=== PATIENT | male | born 1950 | race Caucasian/White ===

== ENCOUNTER → 2018-01-11 14:39 | Outpatient (CLI) | payer MEDICARE, SELFPAY ==
[2016-02-04 15:13] VITALS: BMI 32.7
== END ==
PROVIDERS: Family Provider Family Medicine; PCP Family Medicine; Visit Provider Otolaryngology
DX: J32.9 Chronic sinusitis, unspecified (principal)
CPT/HCPCS: 70486

== ENCOUNTER 2018-04-13 08:38 | Inpatient (IN) | payer MEDICARE, SELFPAY ==
[2016-02-04 15:13] VITALS: BMI 32.7
[2017-04-23 14:17] VITALS: BMI 29.9
[2018-04-13] VITALS (40 sets, daily range): BP systolic 112–188; BP diastolic 62–137; PULSE 60–98; RESP 15–23; TEMP 36.4–37.4; O2SAT 95–100; BMI 34.9; BMI 35.5
--- NOTE | 2018-04-13 08:45 | RAD_ITS ---
STUDY: X-RAY CHEST REASON FOR EXAM: Male, 67 years old. Chest pain. TECHNIQUE: Single AP portable view of the chest. COMPARISON: June 17, 2015. FINDINGS: Cardiac monitoring leads are present. The lungs are expanded. There is perihilar interstitial thickening in both lungs. There is no demonstrated pleural abnormality. There is borderline cardiomegaly. Normal mediastinum and radhames. There is prominence of the pulmonary hilar arteries with peripheral pulmonary vascular congestion. There is atherosclerotic calcification of the aortic arch with tortuosity. Normal visualized thoracic spine. Normal visualized ribs, clavicles, and shoulders. There is no demonstrated abnormality of the visualized soft tissue structures of the upper abdomen. RAD/Chest 1 View (Portable) IMPRESSION: Borderline cardiomegaly and mild pulmonary congestion. Electronically Signed: Natalia Glass MD at 9:17 EST , Service support ,
--- NOTE | 2018-04-13 08:45 | EKG12_ITS ---
Test Reason : CP Blood Pressure : / mmHG Vent. Rate : 083 BPM Atrial Rate : 083 BPM P-R Int : 128 ms QRS Dur : 104 ms QT Int : 400 ms P-R-T Axes : 057 -13 026 degrees QTc Int : 470 ms Sinus rhythm with occasional and consecutive Premature ventricular complexes Abnormal ECG Confirmed by RAGINI NAZARIO, JAMES ([id number]), scientific publications editor AMANDA SCANLON ([id number]) on 04/17/2018 11:39:31 AM Referred By: CLIVE/GYPSY Confirmed By:JAMES EID MD
[2018-04-13 08:55] LABS: Absolute Lymphocyte Count 2.52 X10^3/ul (0.83-4.51); Absolute Neutrophil Count 6.4 X10^3/uL (2.0-7.7); Basophil# 0.02 X10^3/uL; Basophil% 0.2 % (0-1); Eosinophil# 0.14 X10^3/uL; Eosinophils% 1.4 % (0-5); Hematocrit 45.9 % (40-54); Hemoglobin 15.5 g/dl (13.0-16.5); Lymphocyte # 2.52 X10^3/ul (4.0); Lymphocyte % 24.9 % (19-41); Mean Corp Hgb Conc 33.8 g/gl (32-36); Mean Corpuscular Hgb 31.1 pg (27.0-32.0); Mean Platelet Vol. 10.1 fl (6.2-12.0); Monocyte# 0.97 X10^3/uL; Monocyte% 9.6 % (0-10); Neutrophil # 6.43 X10^3/uL (2.7-7.7); Neutrophil % 63.5 % (47-70); Platelet Count 204 K/mm3 (150-450); RBC Distribution Width CV 13.1 % (11.6-14.6); RBC Distribution Width SD 43.3 fl (35.1-43.9); Red Blood Count 4.99 M/mm3 (4.6-6.2); White Blood Count 10.1 K/mm3 (4.4-11.0)
[2018-04-13 08:57] LABS: POSITIVE COUNT NO; POSITIVE DIFFERENTIAL NO; POSITIVE MORPHOLOGY NO
[2018-04-13] MEDS: Ondansetron 4 MG/2 ML Vial IV (09:01)
[2018-04-13] MEDS: 0.9% Normal Saline 1,000 ML 150 ML IV (09:01)
[2018-04-13] MEDS: morphine 8 MG/ML Syringe IV ×2 (09:01→10:11)
[2018-04-13 09:14] LABS: D-Dimer Quantitative (DVT/PE) 0.82 FEU/ug/m (0.27-0.49)
--- NOTE | 2018-04-13 09:15 | ED.RN ---
LAB CALLS WITH CRITICAL RESULT, D-DIMER 0.82, DR. BETANCUR MADE AWARE.
[2018-04-13 09:17] LABS: Anion Gap 11 (5-15); BUN 25 mg/dL (7-18); Calcium,Total 9.3 mg/dL (8.5-10.1); Chloride 113 mmol/L (98-107); Creatinine, Serum 1.56 mg/dL (0.70-1.30); EST Glomerular Filtration Rate 47 mL/min (>60); Est Glom Filt Rate - Afr Amer 57 mL/min (>60); Estimated Creatinine Clearance 41.47 ml/min; Glucose 149 mg/dL (74-106); Sodium Level 144 mmol/L (136-145)
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
--- NOTE | 2018-04-13 09:38 | EKG12_ITS ---
Test Reason : REPEAT-MORE CP Blood Pressure : / mmHG Vent. Rate : 064 BPM Atrial Rate : 064 BPM P-R Int : 128 ms QRS Dur : 104 ms QT Int : 410 ms P-R-T Axes : 057 -27 016 degrees QTc Int : 422 ms Normal sinus rhythm with sinus arrhythmia Nonspecific ST abnormality Abnormal ECG inferior ischemia Confirmed by RAGINI NAZARIO, JAMES ([id number]), editorial manager AMANDA SCANLON ([id number]) on 04/17/2018 11:40:06 AM Referred By: GYPSY Confirmed By:JAMES EID MD
[2018-04-13] MEDS: Nitroglycerin Infusion 250 ML 3 MG IV (09:49)
--- NOTE | 2018-04-13 09:50 | ED.RN ---
PT TO CT VIA STRETCHER, REMAINS ON CODE ENFORCEMENT SUPERVISOR. RN ACCOMPANIES.
--- NOTE | 2018-04-13 09:58 | ED.DCSUM_ITS ---
- ER Visit Summary Date of Service: 04/13/18 Chief Complaint: [] Chest pain after working out in the gym History of Present Illness: The patient is a 67 M [] history of cardiac stents reports he has had good health he was working in the gym with bench presses and other similar type activity he began explained to chest pressure that did not go away,. Per medics were called, he was given aspirin nitroglycerin he states the pain is improved but has not resolved its about a 6, his cardiac status has been very stable he is not been experiencing chest pain. Indicates since his stents he is able to exercise and do normal activities without chest discomfort, the last time he saw cardiology everything was stable. He had no fever no cough he did not injure himself today in the gym he indicates the bench pressing and other lifting activities were typical for him he denies numbness weakness or paresthesias no abdominal pain normal bowel bladder habits Physical Examination: [] Pressure is 170/80 General, no distress resting comfortably HEENT is generally unremarkable The neck is supple no adenopathy Cardiovascular, regular rate and rhythm Lungs, clear bilateral Abdomen, soft nontender Extremities, no clubbing cyanosis or edema, pulses symmetric bilaterally he is moving all 4 extremities Neurologic, awake alert answering questions appropriately moving all 4 extremities Test Results: [] Emergency Department Course and Treatment: [] EKG showed a sinus rhythm there were nonspecific ST segment changes including in lead II and III that were present on previous EKG he has received aspirin nitroglycerin by EMS he is receiving additional medications here in the department we will proceed with cardiac evaluation EKG labs troponin chest x-ray These initial studies were unremarkable the patient's pain improved and it reoccurred second EKG was obtained and showed slightly more ST segment depression in lead 2 that was present before his d-dimer returned positive to 0.9 he was doing bench pressing type activities, his pulses and vital signs otherwise remained stable at this time was treated with labetalol nitroglycerin we immediately contacted cardiology made him aware of the above they agree if the CTA is negative that they will be taking him for further additional diagnostic management, we have asked radiology for an expedited reading of the CTA, on my inspection of the CTA images there was nothing grossly to suggest dissection or PE I notified cardiology of the above and they are coming in immediately to further evaluate him The patient's vital signs remained stable his blood pressure is now 140/80 his heart rate is 80 his pain is improved, cardiology is currently here evaluating him, formal CTA results still pending Treatment Plan: [] Disposition: [] Admit to cardiology [employer] Impression: [] Chest pain possible coronary syndrome history of cardiac stents, to [employer] This note was generated with Akimbo dictation software. It may contain incorrect words, spelling, and punctuation that were not noted in review of the chart prior to signing ED Disposition - Plan for ED Patient: Chief Complaint: Chest Pain Referrals: Herb Middleton MD [Primary Care Provider] -
--- NOTE | 2018-04-13 10:03 | ED.RN ---
TITRATE NITRO TO 10MCG/MIN AT 0953. PT C/O PAIN 11/04. PT IS CT. VS 163/86 63.
--- NOTE | 2018-04-13 10:29 | ED.RN ---
CALLED DR ROOT AT 10:22 LEFT MESSAGE ON HIS VOICEMAIL. CLINICAL SUPPORT MANAGER CALLED ME AT 10:29 REPAGED HIM AND STILL NO ANSWER.
--- NOTE | 2018-04-13 10:30 | ED.RN ---
DR ROOT RETURNED CALL AT 10:31.
--- NOTE | 2018-04-13 10:30 | ED.RN ---
CALLED CT TO MAKE SURE CT WAS READ STAT. GRANT CALLED [facility] AND THEY SAID HE IS UP NEXT TO BE READ. SHE PUT STAT IN READING BUT UNLESS IT IS A STROKE SHE SAID THEY TAKE IT BACK OUT.
--- NOTE | 2018-04-13 10:45 | ED.RN ---
DR ROOT AT BEDSIDE
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
--- NOTE | 2018-04-13 12:20 | EKG12_ITS ---
Test Reason : POST PCI Blood Pressure : / mmHG Vent. Rate : 081 BPM Atrial Rate : 081 BPM P-R Int : 144 ms QRS Dur : 106 ms QT Int : 404 ms P-R-T Axes : 058 -01 037 degrees QTc Int : 469 ms Normal sinus rhythm Normal ECG When compared with ECG of 13-APR-2018 09:29, MANUAL COMPARISON REQUIRED, DATA IS UNCONFIRMED Confirmed by RAGINI NAZARIO, JAMES ([id number]), book or script editor AMANDA SCANLNO ([id number]) on 04/19/2018 2:07:32 PM Referred By: IVETT Confirmed By:JAMES EID MD
--- NOTE | 2018-04-13 12:50 | CL.I_ITS ---
Patient Name: SEBASTIEN BARON Study Date: 04/13/2018 Performing: Thanh Prajapati MD Ht: 66.14 inches 168 cm : 1950 Wt: 216.05 lbs 98 kg Age: 67 Gender: male BSA: 2.07 PROCEDURE(S) PERFORMED QF09-DOH/COR/LV HY98-LNO W OR WO PTCA, SINGLE CORONARY ARTERY CLINICAL PROFILE AND CO-MORBIDITIES Heart Failure: None Angina Classification Anginal Classification w/in 2 Weeks: CCS IV CAD Presentations: Unstable angina. CONCLUSIONS 100% Prox/Mid LCX 50-60% Mid LAD 50% ISR Mid RCA; 60% ostial PDA LVEDP 33 mm Hg LVEF 65% Successful PTCA/JOSE ANGEL Prox LCX using Resolute Integrity 3.0x14 mm RECOMMENDATIONS ASA Indefinitley Brilinta for at least 12 months DESCRIPTION OF PROCEDURE The patient arrived to the procedure lab. The risks and benefits of the procedure as well as a full d escription of our services here and lack of surgical backup were fully explained to the patient and/o r their significant other prior to the catheterization. The Timeout was completed, verifying the jordan ect patient and procedure. The patient's procedural site was prepped and draped in the usual fashion. Local anesthetic was given subcutaneously to right radial region with Lidocaine 2%. Using a modified Seldinger technique, arterial access was obtained via the right radial artery, a 6Fr sheath was inse rted.. Left Coronary Artery selective angiography was performed in multiple views using a 5 Fr. 4.0 [place] catheter. Right Coronary Artery selective angiography was then performed in multiple views usin g a 5 Fr. 4.0 [place] catheter. LV to AO pullback pressures were then recordedThe images were reviewed and options discussed. A decision was then made to proceed with an Intervention, IVUS or other adjunct procedure. xb 3 cordis Guide catheter was inserted and engaged into the LCA. runthrough Guide wire was advan honorio to the Circumflex. Angiogram performed pre balloon dilatation. emerge 2.5 x 20 Balloon catheter w as advanced across lesion in the circumflex, prox PTCA balloon inflated at 12 atms for 26 secs. PTCA balloon inflated at 14 atms for 28 secs. Angiogram performed post balloon dilatation. resolute 3.0 x 15 Drug Eluting stent was advanced across the lesion in the circumflex, prox Angiogram performed post stent deployment. nc emerge 3.00 x20 Balloon catheter was inserted post stent. Angiogram performed post stent deployment. The arterial sheath was pulled and a TR Band was applied for hemostasis CORONARY ANGIOGRAPHY DOMINANCE: Right Dominant LEFT HEART ASSESSMENT Left Ventricular Ejection Fraction: by LV Gram 65 % LVEDP: 33 mmHg LEFT MAIN: Angiographically normal LEFT ANTERIOR DECENDING ARTERY: 30% Prox, 50% Mid CIRCUMFLEX ARTERY: 100% Prox. ISR and in-stent thromboisi RIGHT CORONARY ARTERY: 50% ISR Mid RCA; 60% ostial RPDA INTERVENTION INFORMATION LESION SITE: Circumflex (Proximal) Lesion Complexity: High/C, thrombus present: Yes, In-stent restenosis: Yes, culprit lesion: Yes Pre Stenosis: 100 % Pre intervention DIANNE flow: 0 PROCEDURE: Drug Eluting Stent with pre and post dilatation Post Stenosis: 0 % Post intervention DIANNE flow: 3 Lesion Devices: Cory Sci EMERGE MR 2.50x20 BALLOON Medtronic Resolute RX JOSE ANGEL 3.0x15 Cory Sci NC EMERGE MR 3.00x20 BALLOON COMPLICATIONS No Complications PROCEDURE MEDICATIONS Versed 2 mg IV Fentanyl 25 mcg IV Fentanyl 25 mcg IV Oxygen: 2 L/min via nasal cannula Brilinta 180 mg PO 04/13/2018 11:15:04 Angiomax 15 ml's loading dose given 04/13/2018 11:45:04 Angiomax 35 ml's/hr infusing iv @ 04/13/2018 11:45:41 Heparin given IA 04/13/2018 11:36:03 Nitro 200 mcg IC 04/13/2018 11:52:25 Verapamil 2.5mg, Ntg 100mcgs, 2000 units of Heparin given IA 04/13/2018 11:36:03 IV Bolus: .9 NaCl 500 ml total 04/13/2018 12:13:54 SUMMARY OF HEMODYNAMIC DATA Time AIR REST ECG 11:30:06 AO 149/80 (108) SA 11:38:52 LV 159/15, 33 12:10:12 LV 151/16, 33 12:10:18 LVp 143/27, 36 12:10:53 AOp 132/76 (100) 12:10:58 Signed By Thanh Prajapati MD On 04/13/2018 12:49:52 Thanh Prajapati MD
[2018-04-13 12:51] LABS: ACT Activated Clotting Time 323 sec (74-137)
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
[2018-04-13] MEDS: 0.9% Normal Saline 1,000 ML 100 ML IV (13:09)
[2018-04-13] MEDS: Metoprolol Tartrate 25 MG Tablet PO ×2 (15:40→21:24)
[2018-04-13] MEDS: Famotidine 20 MG Tablet PO (21:24)
[2018-04-13] MEDS: 0.9% NaCl Peripheral Flush Adult/Peds IV (21:25)
[2018-04-13] MEDS: TICAGRELOR 90 MG TABLET PO (21:25)
[2018-04-13] MEDS: Atorvastatin Calcium 40 MG Tablet PO (21:25)
[2018-04-13] MEDS: Lactulose 20 GM/30 ML UDC PO (21:25)
[2018-04-13] MEDS: Morphine 2 MG/ML Syringe IV (21:25)
[2018-04-13] MEDS: ALPRAZolam 0.5 MG Tablet PO (21:26)
[2018-04-14] VITALS (25 sets, daily range): BP systolic 121–162; BP diastolic 60–87; PULSE 65–98; RESP 11–24; TEMP 36.8–36.9; O2SAT 94–98
--- NOTE | 2018-04-14 02:23 | NURSING ---
Pt states inability to sleep. Requested sleep aide. Educated pt on the policy of 00:30 for administration of sleep aides. Pt states understanding. Nurse offered snacks and drinks, help with repositioning. Pt refused offers. Watching TV, pleasant and cooperative.
[2018-04-14 04:57] LABS: Hematocrit 39.5 % (40-54); Hemoglobin 13.3 g/dl (13.0-16.5); Mean Corp Hgb Conc 33.7 g/gl (32-36); Mean Corpuscular Hgb 31.1 pg (27.0-32.0); Mean Corpuscular Volume 92.5 fL (80-94); Mean Platelet Vol. 9.8 fl (6.2-12.0); Platelet Count 165 K/mm3 (150-450); RBC Distribution Width CV 13.1 % (11.6-14.6); RBC Distribution Width SD 43.2 fl (35.1-43.9); Red Blood Count 4.27 M/mm3 (4.6-6.2)
[2018-04-14 05:03] LABS: Scan Indicated on CBC? Y/N NO
[2018-04-14 05:14] LABS: Anion Gap 10 (5-15); BUN 18 mg/dL (7-18); BUN/Creat Ratio 13.7 RATIO (10-20); Calcium,Total 8.2 mg/dL (8.5-10.1); Chloride 114 mmol/L (98-107); Cholesterol 208 mg/dL (200); Creatinine, Serum 1.31 mg/dL (0.70-1.30); EST Glomerular Filtration Rate 58 mL/min (>60); Est Glom Filt Rate - Afr Amer 70 mL/min (>60); Estimated Creatinine Clearance 49.38 ml/min; Glucose 136 mg/dL (74-106); High Density Lipoprotein 30 mg/dL; Potassium 3.9 mmol/L (3.5-5.1); Sodium Level 145 mmol/L (136-145); Triglycerides 301 mg/dL; Very Low Density Lipoprotein 60 mg/dL (5-40)
[2018-04-14] MEDS: Aspirin E.C. 81 MG Tablet PO (07:40)
[2018-04-14] MEDS: Morphine 4 MG/ML Syringe IV ×3 (07:45→17:51)
[2018-04-14] MEDS: 0.9% NaCl Peripheral Flush Adult/Peds IV ×3 (07:47→13:45)
--- NOTE | 2018-04-14 08:11 | PCM.PN.HOSP ---
Patient Problems: Active and Suspected Problems Chest pain (Acute) NSTEMI (non-ST elevated myocardial infarction) (Acute) Subjective: Feels good. No chest pain nor shortness of breath. Vitals/I&O's: Vital Signs Temp Pulse Resp BP Pulse Ox 36.8 C 80 14 142/76 H 97 04/14/18 04:00 04/14/18 07:00 04/14/18 07:00 04/14/18 07:00 04/14/18 07:00 Oxygen Flow Rate (L/min) 2 Oxygen Delivery Method Room Air Weight: 99.79 kg Body Mass Index (BMI) 35.5 Finger Stick Blood Glucose 83 Intake and Output for Last 24 Hours 04/12/18 04/13/18 04/14/18 23:59 23:59 23:59 Intake Total 1420 / 1420 Output Total 1979 500 / 500 Balance -560 / -560 -500 / -500 General: Alert, Cooperative, No apparent distress HEENT: Atraumatic, Normocephalic Oral: Moist Mucosa, No Gingival or Mucosal Lesions/ Ulcerations Neck: No Nodes, Thyroid Normal Size and Texture Lungs: Clear to auscultation, Normal air movement, No rhonchi, No wheeze Cardiovascular: Regular rate, Regular Rhythm, Normal S1, Normal S2, No murmurs Abdomen: Bowel Sounds Present, Soft, Non Tender, Non-Distended, No Hepato-splenomegaly, Passing Flatus Extremities: No edema Skin: No rashes, No breakdown Psych/Mental Status: Normal Affect, Appropriate Laboratory Results 04/13/18 08:40: WBC 10.1, RBC 4.99, Hgb 15.5, Hct 45.9, MCV 92.0, MCH 31.1, MCHC 33.8, RDW 13.1, RDW Differential 43.3, Plt Count 204, MPV 10.1, Immature Gran % (Auto) 0.400, Neut % (Auto) 63.5, Lymph % (Auto) 24.9, [place] % (Auto) 9.6, Eos % (Auto) 1.4, Baso % (Auto) 0.2, Absolute Neuts (auto) 6.4, Absolute Lymphs (auto) 2.52, Total Counted Not Reportable 04/13/18 08:40: Sodium 144, Potassium 4.0, Chloride 113 H, Carbon Dioxide 20.0 L, Anion Gap 11, BUN 25 H, Creatinine 1.56 H, Estim Creat Clear Calc 41.47, Est GFR (MDRD) Af Amer 57 L, Est GFR (MDRD) Non-Af 47 L, BUN/Creatinine Ratio 16.0, Glucose 149 H, Calcium 9.3, Troponin I < 0.015 04/13/18 08:40: D-Dimer Quant (PE/DVT) 0.82 H* 04/13/18 10:25: Troponin I 0.072 H 04/13/18 12:10: Activated Clotting Time 323 H 04/14/18 04:45: WBC 8.0, RBC 4.27 L, Hgb 13.3, Hct 39.5 L, MCV 92.5, MCH 31.1, MCHC 33.7, RDW 13.1, RDW Differential 43.2, Plt Count 165, MPV 9.8 04/14/18 04:45: Sodium 145, Potassium 3.9, Chloride 114 H, Carbon Dioxide 21.0, Anion Gap 10, BUN 18, Creatinine 1.31 H, Estim Creat Clear Calc 49.38, Est GFR (MDRD) Af Amer 70, Est GFR (MDRD) Non-Af 58 L, BUN/Creatinine Ratio 13.7, Glucose 136 H, Calcium 8.2 L, Triglycerides 301 H, Cholesterol 208 H, LDL Cholesterol 118, VLDL Cholesterol 60 H, HDL Cholesterol 30 L Current Medications Acetaminophen (Tylenol) 650 mg PO Q6H PRN PRN PRN Reason: Mild Pain (1-3)/Temp > 100.7 F Alprazolam (Xanax) 0.5 mg PO BID [facility] Last Admin: 04/13/18 21:26 Dose: 0.5 mg [facility] Admin: 04/14/18 07:40 Dose: 81 mg Atorvastatin Calcium (Lipitor) 40 mg PO QHS [facility] Last Admin: 04/13/18 21:25 Dose: 40 mg Atropine Sulfate () 0.5 mg IV UD PRN PRN Reason: HR <50 bpm Enoxaparin Sodium (Lovenox) 40 mg SC DAILY@1000 [facility] Ergocalciferol (Vitamin D) 50,000 unit PO QWEEK [facility] Famotidine (Pepcid) 20 mg PO BID [facility] Last Admin: 04/13/18 21:24 Dose: 20 mg Nitroglycerin/Dextrose () 250 mls @ 3 mls/hr IV .[id number] STA; Protocol Stop: 04/16/18 20:57 Last Admin: 04/13/18 09:49 Dose: 3 mls/hr Lactulose (Chronulac, Cephulac) 20 gm PO BID [facility] Last Admin: 04/13/18 21:25 Dose: 20 gm Magnesium Hydroxide (Milk Of Magnesia) 30 ml PO DAILY PRN PRN PRN Reason: Constipation Metoprolol Tartrate (Lopressor (Beta Stephon)) 25 mg PO BID [facility] Last Admin: 04/13/18 21:24 Dose: 25 mg Morphine Sulfate () 2 - 4 mg IV Q4H PRN PRN PRN Reason: MOD-SEVERE PAIN (4-10/10) Last Admin: 04/13/18 21:25 Dose: 2 mg Morphine Sulfate () 2 - 4 mg IV Q4H PRN PRN PRN Reason: MOD-SEVERE PAIN (4-10/10) Last Admin: 04/14/18 07:45 Dose: 4 mg Nutritional Formula (Lactose Free) (Ensure Enlive) 120 ml PO 4X/DAY [facility] Last Admin: 04/13/18 21:20 Dose: Not Given Ondansetron HCl (Zofran) 4 mg IV Q8H PRN PRN PRN Reason: NAUSEA Sodium Chloride () 500 ml IV BOLUS PRN PRN Reason: VASO-VAGAL PROTOCOL Sodium Chloride () 5 - 30 ml IV UD PRN PRN Reason: SALINE FLUSH Last Admin: 04/14/18 07:47 Dose: 10 ml Ticagrelor (Brilinta) 90 mg PO BID [facility] Last Admin: 04/13/18 21:25 Dose: 90 mg Venlafaxine HCl (Effexor Xr) 150 mg PO DAILY [facility] Medical Necessity - Tobacco Use Smoking Status: Never smoker Assessment/Plan All Active Problems Chest pain (Acute) NSTEMI (non-ST elevated myocardial infarction) (Acute) Altered mental status (Resolved) 1. Non-STEMI [place] drug-eluting stent to the circumflex at the area of his previous stent on 04/13 Continue with Brilinta, aspirin, high intensity statin. Further management per cardiology 2. Suspected chronic kidney disease stage III Creatinine initial 1.56, now 1.31, back on April 23, 2017 is 1.07 Likely chronic follow up with nephrology as outpt. 3. DVT prophylaxis with low back rate heparin SCDs. Code Visit Inpatient E&M: 02075 Subs Hosp L2
--- NOTE | 2018-04-14 08:15 | PN_ITS ---
Patient Problems: Active and Suspected Problems Chest pain (Acute) NSTEMI (non-ST elevated myocardial infarction) (Acute) Subjective: Feels good. No chest pain nor shortness of breath. Vitals/I&O's: Vital Signs Temp Pulse Resp BP Pulse Ox 36.8 C 80 14 142/76 H 97 04/14/18 04:00 04/14/18 07:00 04/14/18 07:00 04/14/18 07:00 04/14/18 07:00 Oxygen Flow Rate (L/min) 2 Oxygen Delivery Method Room Air Weight: 99.79 kg Body Mass Index (BMI) 35.5 Finger Stick Blood Glucose 83 Intake and Output for Last 24 Hours 04/12/18 04/13/18 04/14/18 23:59 23:59 23:59 Intake Total 1420 / 1420 Output Total 1979 500 / 500 Balance -560 / -560 -500 / -500 General: Alert, Cooperative, No apparent distress HEENT: Atraumatic, Normocephalic Oral: Moist Mucosa, No Gingival or Mucosal Lesions/ Ulcerations Neck: No Nodes, Thyroid Normal Size and Texture Lungs: Clear to auscultation, Normal air movement, No rhonchi, No wheeze Cardiovascular: Regular rate, Regular Rhythm, Normal S1, Normal S2, No murmurs Abdomen: Bowel Sounds Present, Soft, Non Tender, Non-Distended, No Hepato- splenomegaly, Passing Flatus Extremities: No edema Skin: No rashes, No breakdown Psych/Mental Status: Normal Affect, Appropriate Laboratory Results 04/13/18 08:40: WBC 10.1, RBC 4.99, Hgb 15.5, Hct 45.9, MCV 92.0, MCH 31.1, MCHC 33.8, RDW 13.1, RDW Differential 43.3, Plt Count 204, MPV 10.1, Immature Gran % (Auto) 0.400, Neut % (Auto) 63.5, Lymph % (Auto) 24.9, Harvey % (Auto) 9.6, Eos % (Auto) 1.4, Baso % (Auto) 0.2, Absolute Neuts (auto) 6.4, Absolute Lymphs (auto) 2.52, Total Counted Not Reportable 04/13/18 08:40: Sodium 144, Potassium 4.0, Chloride 113 H, Carbon Dioxide 20.0 L , Anion Gap 11, BUN 25 H, Creatinine 1.56 H, Estim Creat Clear Calc 41.47, Est GFR (MDRD) Af Amer 57 L, Est GFR (MDRD) Non-Af 47 L, BUN/Creatinine Ratio 16.0, Glucose 149 H, Calcium 9.3, Troponin I < 0.015 04/13/18 08:40: D-Dimer Quant (PE/DVT) 0.82 H* 04/13/18 10:25: Troponin I 0.072 H 04/13/18 12:10: Activated Clotting Time 323 H 04/14/18 04:45: WBC 8.0, RBC 4.27 L, Hgb 13.3, Hct 39.5 L, MCV 92.5, MCH 31.1, MCHC 33.7, RDW 13.1, RDW Differential 43.2, Plt Count 165, MPV 9.8 04/14/18 04:45: Sodium 145, Potassium 3.9, Chloride 114 H, Carbon Dioxide 21.0, Anion Gap 10, BUN 18, Creatinine 1.31 H, Estim Creat Clear Calc 49.38, Est GFR (MDRD) Af Amer 70, Est GFR (MDRD) Non-Af 58 L, BUN/Creatinine Ratio 13.7, Glucose 136 H, Calcium 8.2 L, Triglycerides 301 H, Cholesterol 208 H, LDL Cholesterol 118, VLDL Cholesterol 60 H, HDL Cholesterol 30 L Current Medications Acetaminophen (Tylenol) 650 mg PO Q6H PRN PRN PRN Reason: Mild Pain (1-3)/Temp > 100.7 F Alprazolam (Xanax) 0.5 mg PO BID [facility] Last Admin: 04/13/18 21:26 Dose: 0.5 mg [facility] Last Admin: 04/14/18 07:40 Dose: 81 mg Atorvastatin Calcium (Lipitor) 40 mg PO QHS [facility] Last Admin: 04/13/18 21:25 Dose: 40 mg Atropine Sulfate () 0.5 mg IV UD PRN PRN Reason: HR <50 bpm Enoxaparin Sodium (Lovenox) 40 mg SC DAILY@1000 [facility] Ergocalciferol (Vitamin D) 50,000 unit PO QWEEK [facility] Famotidine (Pepcid) 20 mg PO BID [facility] Last Admin: 04/13/18 21:24 Dose: 20 mg Nitroglycerin/Dextrose () 250 mls @ 3 mls/hr IV .[id number] STA; Protocol Stop: 04/16/18 20:57 Last Admin: 04/13/18 09:49 Dose: 3 mls/hr Lactulose (Chronulac, Cephulac) 20 gm PO BID [facility] Last Admin: 04/13/18 21:25 Dose: 20 gm Magnesium Hydroxide (Milk Of Magnesia) 30 ml PO DAILY PRN PRN PRN Reason: Constipation Metoprolol Tartrate (Lopressor (Beta Stephon)) 25 mg PO BID [facility] Last Admin: 04/13/18 21:24 Dose: 25 mg Morphine Sulfate () 2 - 4 mg IV Q4H PRN PRN PRN Reason: MOD-SEVERE PAIN (4-10/10) Last Admin: 04/13/18 21:25 Dose: 2 mg Morphine Sulfate () 2 - 4 mg IV Q4H PRN PRN PRN Reason: MOD-SEVERE PAIN (4-10/10) Last Admin: 04/14/18 07:45 Dose: 4 mg Nutritional Formula (Lactose Free) (Ensure Enlive) 120 ml PO 4X/DAY [facility] Last Admin: 04/13/18 21:20 Dose: Not Given Ondansetron HCl (Zofran) 4 mg IV Q8H PRN PRN PRN Reason: NAUSEA Sodium Chloride () 500 ml IV BOLUS PRN PRN Reason: VASO-VAGAL PROTOCOL Sodium Chloride () 5 - 30 ml IV UD PRN PRN Reason: SALINE FLUSH Last Admin: 04/14/18 07:47 Dose: 10 ml Ticagrelor (Brilinta) 90 mg PO BID [facility] Last Admin: 04/13/18 21:25 Dose: 90 mg Venlafaxine HCl (Effexor Xr) 150 mg PO DAILY [facility] Medical Necessity - Tobacco Use Smoking Status: Never smoker Assessment/Plan All Active Problems Chest pain (Acute) NSTEMI (non-ST elevated myocardial infarction) (Acute) Altered mental status (Resolved) 1. Non-STEMI * [place] drug-eluting stent to the circumflex at the area of his previous stent on 04/13 * Continue with Brilinta, aspirin, high intensity statin. * Further management per cardiology 2. Suspected chronic kidney disease stage III * Creatinine initial 1.56, now 1.31, back on April 23, 2017 is 1.07 * Likely chronic * follow up with nephrology as outpt. 3. DVT prophylaxis with low back rate heparin SCDs. Code Visit Inpatient E&M: 34940 Subs Hosp L2
[2018-04-14] MEDS: Lactulose 20 GM/30 ML UDC PO ×2 (09:42→22:05)
[2018-04-14] MEDS: Metoprolol Tartrate 25 MG Tablet PO ×2 (09:42→22:05)
[2018-04-14] MEDS: TICAGRELOR 90 MG TABLET PO ×2 (09:42→22:05)
[2018-04-14] MEDS: ALPRAZolam 0.5 MG Tablet PO ×2 (09:43→22:22)
[2018-04-14] MEDS: Famotidine 20 MG Tablet PO ×2 (09:43→22:05)
[2018-04-14] MEDS: Enoxaparin 40 MG/0.4 ML Syringe SC (09:43)
--- NOTE | 2018-04-14 10:00 | EKG12_ITS ---
Test Reason : MORNING EKG Blood Pressure : / mmHG Vent. Rate : 083 BPM Atrial Rate : 083 BPM P-R Int : 146 ms QRS Dur : 112 ms QT Int : 408 ms P-R-T Axes : 070 -30 072 degrees QTc Int : 479 ms Sinus rhythm with Premature supraventricular complexes Left axis deviation Abnormal ECG When compared with ECG of 13-APR-2018 12:44, MANUAL COMPARISON REQUIRED, DATA IS UNCONFIRMED Confirmed by RAGINI NAZARIO, JAMES ([id number]), editor map AMANDA SCANLON ([id number]) on 04/19/2018 2:07:21 PM Referred By: IVETT Confirmed By:JAMES EID MD
[2018-04-14] MEDS: Ondansetron 4 MG/2 ML Vial IV (13:45)
--- NOTE | 2018-04-14 13:45 | PCM.PN.CARD ---
Subjectve: No chest pain or shortness of breath Objective: Vital Signs Temp Pulse Resp BP Pulse Ox 98.2 F 66 18 141/81 H 97 04/14/18 12:00 04/14/18 12:00 04/14/18 12:00 04/14/18 12:00 04/14/18 12:00 Oxygen Flow Rate (L/min) 2 Oxygen Delivery Method Room Air Weight: 99.79 kg Body Mass Index (BMI) 35.5 Finger Stick Blood Glucose 83 Intake and Output for Last 24 Hours 04/12/18 04/13/18 04/14/18 23:59 23:59 23:59 Intake Total 1420 / 1420 480 / 480 Output Total 1979 900 / 900 Balance -560 / -560 -420 / -420 General: Healthy Appearing, Awake, Alert, Oriented x 3 HEENT: Atraumatic Oral: Moist Mucosa Neck: Supple Lungs: Clear to auscultation Cardiovascular: Regular Rhythm, Normal S1, Normal S2 Vascular: - - Right radial pulse 2+ Abdomen: Bowel Sounds Present, Soft Neurological: No Focal Motor or Sensory Deficit Psych/Mental Status: Appropriate 04/14/18 04:45: WBC 8.0, RBC 4.27 L, Hgb 13.3, Hct 39.5 L, MCV 92.5, MCH 31.1, MCHC 33.7, RDW 13.1, RDW Differential 43.2, Plt Count 165, MPV 9.8 04/14/18 04:45: Sodium 145, Potassium 3.9, Chloride 114 H, Carbon Dioxide 21.0, Anion Gap 10, BUN 18, Creatinine 1.31 H, Est GFR (MDRD) Af Amer 70, Est GFR (MDRD) Non-Af 58 L, BUN/Creatinine Ratio 13.7, Glucose 136 H, Calcium 8.2 L, Triglycerides 301 H, Cholesterol 208 H, LDL Cholesterol 118, VLDL Cholesterol 60 H, HDL Cholesterol 30 L Rhythm: Normal sinus rhythm EKG: ECHO: Stress Test: Cardiac Cath: PCI: CT Surgery: Holter monitor: EPS: PPM: CXR: Chest CT Scan: Medical Necessity - Tobacco Use Smoking Status: Never smoker Assessment/Plan 1. Non-ST elevation myocardial infarction. Status post balloon angioplasty and drug-eluting stent placement to the proximal and mid left circumflex coronary artery for in-stent restenosis and thrombosis. 2. History of coronary artery disease 3. Hypertension 4. Dyslipidemia 5. History of gout May transfer to stepdown unit. Discharge home in the morning if continues to be stable.
--- NOTE | 2018-04-14 13:48 | ECHOD_ITS ---
Reason For Study: S/P GA Procedure This was a 2D Doppler, Color Flow transthoracic echocardiogram. Exam performed portable in patient room. Left Ventricle Normal LV size. Left ventricular systolic function is normal. The estimated ejection fraction is 55 %. Stage 1 diastolic dysfunction. No regional wall motion abnormalities noted. Right Ventricle Normal RV size. Normal systolic function. Atria The left atrium is mildly enlarged. Normal right atrium. Mitral Valve Normal mitral valve. Tricuspid Valve Normal tricuspid valve. Aortic Valve The aortic valve is not well visualized. Pulmonic Valve The pulmonic valve is not well visualized. Great Vessels Normal aortic root. The pulmonary artery is normal size. Normal inferior vena cava. Pericardium/Pleural No pericardial effusion. Medication Diluted definity 5ml given slow IV push to enhance endocardial definition. MMode/2D Measurements & Calculations LVIDd: 5.1 cm IVSd: 1.1 cm Ao root diam: 3.1 cm LVIDs: 4.0 cm LVPWd: 1.3 cm LA dimension: 3.8 cm FS: 22.2 % LAV(MOD-bp): 61.9 ml LA A4 area: 21.3 cm2 RA A4 area: 16.5 cm2 LAV(MOD-bp) Indexed: 29.8 ml/m2 LAV(MOD-sp2): 55.7 ml LAV(MOD-sp4): 67.5 ml Time Measurements MV dec time: 0.20 sec Doppler Measurements & Calculations MV E max jono: 91.7 cm/sec Lat Peak E' Jono: 6.9 cm/sec Med Peak E' Jono: 7.9 cm/sec MV A max jono: 110.3 cm/sec E/E' lat: 13.3 E/E' med: 11.5 MV E/A: 0.83 MV V2 max: 126.2 cm/sec MV P1/2t max jono: 126.2 cm/sec Ao V2 max: 133.9 cm/sec MV max P.4 mmHg MV P1/2t: 58.4 msec Ao max P.2 mmHg MV V2 mean: 75.6 cm/sec MV dec slope: 632.6 cm/sec2 Ao V2 mean: 98.2 cm/sec MV mean P.7 mmHg Ao mean P.3 mmHg MV V2 VTI: 34.9 cm MVA(P1/2t): 3.8 cm2 Ao V2 VTI: 28.3 cm LV V1 max: 109.2 cm/sec LV V1 max P.8 mmHg LV V1 mean P.6 mmHg LV V1 mean: 75.3 cm/sec LV V1 VTI: 21.7 cm Interpretation Summary Normal LV size. Left ventricular systolic function is normal. The estimated ejection fraction is 55 %. Stage 1 diastolic dysfunction. Contrast injection was performed. Ordering Physician: Thanh Prajapati Referring Physician: MD Emi Herb Performed By: Olegario Terrazas RCS
[2018-04-14] MEDS: Morphine 2 MG/ML Syringe IV (22:04)
[2018-04-14] MEDS: Atorvastatin Calcium 40 MG Tablet PO (22:05)
[2018-04-15] VITALS (7 sets, daily range): BP systolic 125–135; BP diastolic 81; PULSE 72–78; RESP 15–18; TEMP 36.6–36.9; O2SAT 94–97; BMI 34.8
[2018-04-15] MEDS: Morphine 2 MG/ML Syringe IV (04:11)
[2018-04-15] MEDS: 0.9% NaCl Peripheral Flush Adult/Peds IV ×2 (04:12→08:46)
[2018-04-15 06:52] LABS: Anion Gap 8 (5-15); BUN 15 mg/dL (7-18); BUN/Creat Ratio 12.7 RATIO (10-20); Calcium,Total 8.6 mg/dL (8.5-10.1); Chloride 110 mmol/L (98-107); Creatinine, Serum 1.18 mg/dL (0.70-1.30); EST Glomerular Filtration Rate 65 mL/min (>60); Est Glom Filt Rate - Afr Amer 79 mL/min (>60); Estimated Creatinine Clearance 54.82 ml/min; Glucose 104 mg/dL (74-106); Potassium 4.1 mmol/L (3.5-5.1); Sodium Level 140 mmol/L (136-145)
--- NOTE | 2018-04-15 07:07 | PCM.PN.CARD ---
Subjectve: Asked by Dr. Prajapati to see patient this morning. Patient is doing well with no complaints. No neck arm or jaw discomfort to suggest angina. Objective: Vital Signs Temp Pulse Resp BP Pulse Ox 98.4 F 78 18 125/81 H 96 04/15/18 04:03 04/15/18 04:03 04/15/18 04:03 04/15/18 04:03 04/15/18 04:03 Oxygen Flow Rate (L/min) 2 Oxygen Delivery Method Room Air Weight: 212 lb 8.41 oz Body Mass Index (BMI) 35.5 Finger Stick Blood Glucose 83 Intake and Output for Last 24 Hours 04/13/18 04/14/18 04/15/18 23:59 23:59 23:59 Intake Total 1420 / 1420 730 / 730 360 / 360 Output Total 1979 / 1979 900 / 900 800 / 800 Balance -560 / -560 -170 / -170 -440 / -440 General: Awake, Alert, Oriented x 3 HEENT: PERRL, EOMI, Sclera Non Icteric Neck: Supple, Good ROM, No Lymph Node Enlargement Lungs: Clear to auscultation Cardiovascular: Regular Rhythm, Normal S1, Normal S2, No Murmurs, No Rubs, No Gallops Vascular: No Carotid Bruits, Normal Femoral Pulses, Normal Radial Pulses, Normal Dorsalis Pedal Pulse, Normal Posterior Tibial Pulses Abdomen: Bowel Sounds Present, Soft, Non Tender, No HSM, No Organomegaly Extremities: No Cyanosis, No Clubbing, No edema Neurological: No Focal Motor or Sensory Deficit 04/15/18 06:05: Sodium 140, Potassium 4.1, Chloride 110 H, Carbon Dioxide 22.0, Anion Gap 8, BUN 15, Creatinine 1.18, Est GFR (MDRD) Af Amer 79, Est GFR (MDRD) Non-Af 65, BUN/Creatinine Ratio 12.7, Glucose 104, Calcium 8.6 Rhythm: EKG: ECHO: Stress Test: Cardiac Cath: PCI: CT Surgery: Holter monitor: EPS: PPM: CXR: Chest CT Scan: Medical Necessity - Tobacco Use Smoking Status: Never smoker Assessment/Plan 1. Non-ST elevation myocardial infarction. Patient underwent angioplasty and stenting of the mid left circumflex artery. This was uneventful and patient tolerated the procedure well. He will continue on his aspirin and ticagrelor Continue beta-shreya Continue high intensity statin Echocardiogram to assess left ventricular function. Cardiac rehabilitation to be encouraged. 2. Hypertension His blood pressure appears to be under good control on the current medical therapy and no further changes will be made 3. Hyperlipidemia He will continue with his high intensity statin and a lipid profile repeated in approximately 3 months. Outpatient follow-up arranged. Thank you for allowing me to participate in the care of your patient. Please don't hesitate to call if any issues arise
--- NOTE | 2018-04-15 07:11 | PN.CARD_ITS ---
Subjectve: Asked by Dr. Prajapati to see patient this morning. Patient is doing well with no complaints. No neck arm or jaw discomfort to suggest angina. Objective: Vital Signs Temp Pulse Resp BP Pulse Ox 98.4 F 78 18 125/81 H 96 04/15/18 04:03 04/15/18 04:03 04/15/18 04:03 04/15/18 04:03 04/15/18 04:03 Oxygen Flow Rate (L/min) 2 Oxygen Delivery Method Room Air Weight: 212 lb 8.41 oz Body Mass Index (BMI) 35.5 Finger Stick Blood Glucose 83 Intake and Output for Last 24 Hours 04/13/18 04/14/18 04/15/18 23:59 23:59 23:59 Intake Total 1420 / 1420 730 / 730 360 / 360 Output Total 1979 / 1979 900 / 900 800 / 800 Balance -560 / -560 -170 / -170 -440 / -440 General: Awake, Alert, Oriented x 3 HEENT: PERRL, EOMI, Sclera Non Icteric Neck: Supple, Good ROM, No Lymph Node Enlargement Lungs: Clear to auscultation Cardiovascular: Regular Rhythm, Normal S1, Normal S2, No Murmurs, No Rubs, No Gallops Vascular: No Carotid Bruits, Normal Femoral Pulses, Normal Radial Pulses, Normal Dorsalis Pedal Pulse, Normal Posterior Tibial Pulses Abdomen: Bowel Sounds Present, Soft, Non Tender, No HSM, No Organomegaly Extremities: No Cyanosis, No Clubbing, No edema Neurological: No Focal Motor or Sensory Deficit 04/15/18 06:05: Sodium 140, Potassium 4.1, Chloride 110 H, Carbon Dioxide 22.0, Anion Gap 8, BUN 15, Creatinine 1.18, Est GFR (MDRD) Af Amer 79, Est GFR (MDRD) Non-Af 65, BUN/Creatinine Ratio 12.7, Glucose 104, Calcium 8.6 Rhythm: EKG: ECHO: Stress Test: Cardiac Cath: PCI: CT Surgery: Holter monitor: EPS: PPM: CXR: Chest CT Scan: Medical Necessity - Tobacco Use Smoking Status: Never smoker Assessment/Plan 1. Non-ST elevation myocardial infarction. * Patient underwent angioplasty and stenting of the mid left circumflex artery. This was uneventful and patient tolerated the procedure well. * He will continue on his aspirin and ticagrelor * Continue beta-shreya * Continue high intensity statin * Echocardiogram to assess left ventricular function. * Cardiac rehabilitation to be encouraged. 2. Hypertension * His blood pressure appears to be under good control on the current medical therapy and no further changes will be made * 3. Hyperlipidemia * He will continue with his high intensity statin and a lipid profile repeated in approximately 3 months. * * Outpatient follow-up arranged. * * Thank you for allowing me to participate in the care of your patient. Please don't hesitate to call if any issues arise
--- NOTE | 2018-04-15 08:35 | CRPHASE1 ---
Patient Data/Charges Shareholder:: Thanh Prajapati Refer Phase II:: Yes Phase II Referral:: [facility] Start Phase II:: After follow up visit with Shareholder Phase I Charge:: Level I - Education Risk Factors/Lifestyle Smoking Status: Never smoker Hx Hypertension: Yes Hx Dyslipidemia: Yes Hx Obesity: Yes Height: 5 ft 6 in Weight:: 216 lb BMI: 34.8 ETOH: Yes Risk Factor for Sedentary Lifestyle: Lowest Risk Family History: Heart Disease, - - mom with bipolar Past Cardiac Illness: Coronary Artery Disease Laboratory Values: Cardiac Rehab Phase I Labs Triglycerides 301 mg/dL (-199) H 04/14/18 04:45 Cholesterol 208 mg/dL (200) H 04/14/18 04:45 LDL Cholesterol 118 mg/dL (0-130) 04/14/18 04:45 HDL Cholesterol 30 mg/dL (40-) L 04/14/18 04:45 Phase I Education Given On:: [place], Nutrition, Antiplatelet medication, CHF Issues Affecting Care:: None Knowledge of Condition:: Yes Learning Preferences: Verbal, Written, Audio/Visual, Demonstration Hospital Course Presenting Symptoms:: lung burning and jaw pain Medical/Surgical History [place]:: Yes - NSTEMI Hypertension:: Yes Dyslipidemia:: Yes Depression:: Yes PTCA:: Yes Discharge/Home/Social Eval Marital Status: Patient Lives With:: Social Work/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
--- NOTE | 2018-04-15 08:39 | CRPHASE1_ITS ---
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:: Thanh Prajapati Refer Phase II:: Yes Phase II Referral:: [facility] Start Phase II:: After follow up visit with Brake Drum Lathe Operator Phase I Charge:: Level I - Education Risk Factors/Lifestyle Smoking Status: Never smoker Hx Hypertension: Yes Hx Dyslipidemia: Yes Hx Obesity: Yes Height: 5 ft 6 in Weight:: 216 lb BMI: 34.8 ETOH: Yes Risk Factor for Sedentary Lifestyle: Lowest Risk Family History: Heart Disease, - - mom with bipolar Past Cardiac Illness: Coronary Artery Disease Laboratory Values: Cardiac Rehab Phase I Labs Triglycerides 301 mg/dL (-199) H 04/14/18 04:45 Cholesterol 208 mg/dL (200) H 04/14/18 04:45 LDL Cholesterol 118 mg/dL (0-130) 04/14/18 04:45 HDL Cholesterol 30 mg/dL (40-) L 04/14/18 04:45 Phase I Education Given On:: [place], Nutrition, Antiplatelet medication, CHF Issues Affecting Care:: None Knowledge of Condition:: Yes Learning Preferences: Verbal, Written, Audio/Visual, Demonstration Hospital Course Presenting Symptoms:: lung burning and jaw pain Medical/Surgical History [place]:: Yes - NSTEMI Hypertension:: Yes Dyslipidemia:: Yes Depression:: Yes PTCA:: Yes Discharge/Home/Social Eval Marital Status: Patient Lives With:: Social Work/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
--- NOTE | 2018-04-15 08:42 | CRPH1.INSTRU ---
General Education CAD and cardiac anatomy and function:: Patient communicates acknowledgment, Needs reinforcement Explanation of diagnoses and procedures:: Patient communicates acknowledgment, Needs reinforcement Sign/Symptoms of CO:: Patient communicates acknowledgment, Needs reinforcement Antiplatelet therapy: Patient communicates acknowledgment, Needs reinforcement Proper use of NTG-SL: Patient communicates acknowledgment, Needs reinforcement Emergency procedures and activation of EMS: Patient communicates acknowledgment, Needs reinforcement Compliance of all prescribed medications: Patient communicates acknowledgment, Needs reinforcement Smoking Patient Nicotine/Smoking Risk Factors Are:: Never smoked Recommendations Include:: Second-hand smoke recommendation Nicotine/Smoking Response Code:: Patient communicates acknowledgment Dyslipidemia Patient Dyslipidemia Risk Factors Are:: Total Cholesterol, Triglycerides, HDL, LDL Recommendations Include:: Lipid profile provided Dyslipidemia Response Code:: Patient communicates acknowledgment, Needs reinforcement Overweight/Obesity Patient Overweight/Obesity Risk Factors Are:: Obesity - > or = 30 Recommendations Include:: Weight loss of 5-10%, Reduced calorie diet, Exercise 5-7 times/week Overweight/Obesity:: Patient communicates acknowledgment, Needs reinforcement Hypertension Recommendations Include:: Maintain BP <130/85, DASH dietary guidelines, Decrease/maintain normal body weight, Moderation of ETOH Hypertension:: Patient communicates acknowledgment, Needs reinforcement Heart Disease Patient Heart Disease Risk Factors Are:: Previous cardiac event Recommendations Include:: Educated family members of their risk, Educated family members of importance of prevention of heart disease Heart Disease Response Code:: Patient communicates acknowledgment, Needs reinforcement Diabetes Patient Diabetes Risk Factors Are:: No documented hx of diabetes Diabetes:: Not instructed Metabolic Syndrome Patient Metabolic Syndrome Risk Factors Are [3 of 5]:: Waist circumference > 35 [female] or 40 [male], High triglyceride >150, Hypertension Recommendations Include:: Reinforce compliance to risk factor modifications, Encouraged follow-up with Primary Care Physician Metabolic Syndrome Response Code:: Patient communicates acknowledgment, Needs reinforcement Sedentary Recommendations Include:: Aerobic exercise 5-7 times/week for 20-30 minutes continuously, Benefits of regular exercise, Discussed home walking program, Monitored Outpatient Cardiac Rehab Sedentary Response Code:: Patient communicates acknowledgment, Needs reinforcement Stress Recommendations Include:: Identification of stressors, and assessment of coping skills, Stress management techniques Stress Response Code:: Patient communicates acknowledgment, Needs reinforcement
[2018-04-15] MEDS: Morphine 4 MG/ML Syringe IV (08:46)
[2018-04-15] MEDS: Aspirin E.C. 81 MG Tablet PO (08:47)
[2018-04-15] MEDS: Famotidine 20 MG Tablet PO (08:47)
[2018-04-15] MEDS: TICAGRELOR 90 MG TABLET PO (08:48)
[2018-04-15] MEDS: Venlafaxine XR 150 MG Capsule PO (08:48)
[2018-04-15] MEDS: Lactulose 20 GM/30 ML UDC PO (08:49)
[2018-04-15] MEDS: Enoxaparin 40 MG/0.4 ML Syringe SC (08:51)
[2018-04-15] MEDS: Metoprolol Tartrate 25 MG Tablet PO (08:59)
[2018-04-15] MEDS: ALPRAZolam 0.5 MG Tablet PO (08:59)
--- NOTE | 2018-04-15 10:00 | EKG12_ITS ---
Test Reason : MORNING EKG Blood Pressure : / mmHG Vent. Rate : 077 BPM Atrial Rate : 077 BPM P-R Int : 144 ms QRS Dur : 108 ms QT Int : 398 ms P-R-T Axes : 058 -35 062 degrees QTc Int : 450 ms Normal sinus rhythm Left axis deviation Abnormal ECG When compared with ECG of 14-APR-2018 05:19, MANUAL COMPARISON REQUIRED, DATA IS UNCONFIRMED Confirmed by RAGINI NAZARIO, JAMES ([id number]), assistant film editor AMANDA SCANLON ([id number]) on 04/19/2018 1:52:02 PM Referred By: IVETT Confirmed By:JAMES EID MD
--- NOTE | 2018-04-15 10:04 | CASEMGMT ---
RICHARD MUÑOZ assessment: Face to Face with pt for initial transition planning/care coordination assessment. RICHARD MUÑOZ introduced self and role at [facility], pt voices understanding and consents to assessment at this time. Pt is sitting up in chair in no distress at this time. Pt is A/O x4 at this time and answers all questions appropriately at this time. Care providers, pharmacy, and demographics verified at this time. PCP: Emi Specialists: bhargav Campbell; ray Brennan Preferred [facility]acy: [facility] Insurance: MCR A/B Prescription Benefit: Yes per pt, unsure if MCR D or supplemental Living Will/HPOA: Pt states has LW/HPOA and , Rich Owens, is HPOA. HPOA is on file at [facility] but LW is not and pt is aware at this time. LNOK: Rich Owens, Living Arrangements: Pt states lives with in mobile home and states no concerns at home at this time. Pt states there are steps into home but states no concern. Transportation: Pt states drives self and states no transportation concerns at this time. DME/HHC: Pt states has the following DME: grab bars, shower chair, walker, wheelchair, and bipap through [employer]. Pt states does not use walker/w/c and states that they are working on getting bipap switched over to another company and states no concerns with this at this time. 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 Pt states no hx of HHC. Pt states no concerns with going home at time of discharge. Pt states is retired. Pt states does not smoke or drink ETOH. Pt states no further concerns/needs at this time. Advised pt to ask for CM if any further questions/concerns/needs arise, voices understanding. Plan: [place] RICHARD MUÑOZ
--- NOTE | 2018-04-15 10:44 | DS.PCM_ITS ---
Discharge Date and Diagnosis - Problem List Patient Problems: Active and Suspected Problems Chest pain (Acute) NSTEMI (non-ST elevated myocardial infarction) (Acute) Date of Admission: 04/13/18 Date of Discharge: 04/15/18 - Primary Discharge Diagnosis Active and Suspected Problems Chest pain (Acute) NSTEMI (non-ST elevated myocardial infarction) (Acute) - Secondary Discharge Diagnosis Chronic Problems Chronic back pain (Chronic) Pure hypercholesterolemia (Chronic) HTN (hypertension) (Chronic) History of alcoholism (Chronic) Gout (Chronic) Gastric hemorrhage (Chronic) Depressive disorder (Chronic) Coronary atherosclerosis of [place] coronary artery (Chronic) Hospital Course and Treatment Imaging Results: Diagnostic Data Chest X-Ray 04/13/18 08:45 IMPRESSION: Borderline cardiomegaly and mild pulmonary congestion. Electronically Signed: Natalia Glass MD at 9:17 EST , Service support , Chest CTA 04/13/18 09:33 IMPRESSION: 1. No CTA demonstrated pulmonary embolism or arterial dissection. 2. Left basilar subsegmental atelectasis. Electronically Signed: Natalia Glass MD at 10:58 EST , Service support , 2D echo (04/14/18) Interpretation Summary Normal LV size. Left ventricular systolic function is normal. The estimated ejection fraction is 55 %. Stage 1 diastolic dysfunction. Contrast injection was performed. Operations: None Procedures: 2-D Echocardiogram, Cardiac catheterization Summary of Care Provided: The patient is a 67 year old M was admitted with a complaint of midsternal chest pain which occurred while she was at the gym and radiated to his jaw and upper abdomen. He took nitroglycerin but this did not relieve the pain and so he came into the ED where EKG done showed ST depressions. He was taken to the [facility] and had coronary angiography which showed complete occlusion of his circumflex at the area of his previous stents and so he was given a drug-eluting stent. He was subsequently admitted to the ICU. He remained stable and was transferred to the floor where he also remained stable and was discharged home on 04/15/2018. Patient seen and examined prior to discharge. He had no complaints and felt well. He denied any fever or chest pain, any shortness of breath, any palpitations, any abdominal pain, any diarrhea vomiting. Review of systems otherwise negative. He did complain of some mild left shoulder pain which is chronic and he is following up with Dr. Campbell the orthopedic surgeon for possible placement. Labs and vitals reviewed. Home medications reviewed and reconciled. He has been discharged home on p.o. aspirin, Brilinta, statin, metoprolol and 2.5 mg of lisinopril. His follow-up with his primary care doctor and hearing therapy teacher. [] Patient Problems: Active and Suspected Problems Chest pain (Acute) NSTEMI (non-ST elevated myocardial infarction) (Acute) Objective: Vital Signs Height 5 ft 6 in Weight: 216 lb Weight in Pounds 212.5 lbs BMI 34.8 Pulse Ox 94 Temperature 98.2 F Pulse Rate 76 Respiratory Rate 15 Blood Pressure [BP] 145/64 Blood Pressure 135/81 Blood Pressure Position [BP] Semi-Fowlers Blood Pressure Position Semi-Fowlers - Physical Exam General: Alert, Oriented x3, Cooperative, No apparent distress HEENT: Atraumatic, PERRLA, EOMI, Normocephalic Oral: Moist Mucosa Neck: Supple, No JVD, Negative Carotid Bruits Lungs: Clear to auscultation, Normal air movement, No rhonchi, No wheeze, No rales Cardiovascular: Regular rate, Regular Rhythm, Normal S1, Normal S2, No murmurs Abdomen: Bowel Sounds Present, Soft, Non Tender, Non-Distended, No Hepato-splenomegaly Extremities: No clubbing, No cyanosis, No edema, Capillary Refill Less than 3 Seconds Skin: No rashes, No breakdown Musculoskeletal: No Tenderness to Palpation of Joints or Extremities Lymphatic: No Cervical, Supraclavicular, or Inguinal Adenopathy Neurological: Cranial nerves II-XII grossly intact, Neuro grossly intact, Motor Exam 5/5 strength throughout Psych/Mental Status: Normal Affect, Appropriate, Alert and oriented to time, place, person, mood and affect Vital Signs Temp Pulse Resp BP Pulse Ox 98.2 F 76 15 135/81 H 94 04/15/18 08:42 04/15/18 08:59 04/15/18 08:42 04/15/18 08:59 04/15/18 08:42 Oxygen Flow Rate (L/min) 2 Oxygen Delivery Method Room Air Weight: 216 lb Body Mass Index (BMI) 35.5 Finger Stick Blood Glucose 83 Intake and Output for Last 24 Hours 04/13/18 04/14/18 04/15/18 23:59 23:59 23:59 Intake Total 1420 / 1420 730 / 730 360 / 360 Output Total 1979 900 / 900 800 / 800 Balance -560 / -560 -170 / -170 -440 / -440 Laboratory Tests Past 24 Hrs 04/15/18 06:05 Sodium 140 Potassium 4.1 Chloride 110 H Carbon Dioxide 22.0 Anion Gap 8 BUN 15 Creatinine 1.18 Estim Creat Clear Calc 54.82 Est GFR (MDRD) Af Amer 79 Est GFR (MDRD) Non-Af 65 BUN/Creatinine Ratio 12.7 Glucose 104 Calcium 8.6 Discharge Diet: Low fat/ Low Cholesterol Discharge Activity: Return to Normal Activity Weight Bearing Status: Weight bearing as tolerated Call your doctor if you observe: Fever of 101 or Higher, Dizziness, Swelling in the ankles, Chest pain, Increased palpitations (irregular heartbeat) Home Medications: Medications to take at Discharge Cholecalciferol (Vitamin D3) [Optimal D3] 50,000 unit PO QWEEK 06/17/15 Colchicine 0.6 mg PO DINNER PRN 06/17/15 Ranitidine [Zantac] 150 mg PO BID 06/17/15 ALPRAZolam [Xanax] 0.5 mg PO BID 12/31/15 Lactulose [Chronulac] 20 gm PO BID 12/31/15 Acetaminophen [Tylenol Tablet] 650 mg PO Q8 PRN 04/13/18 Aspirin E.C. [Ecotrin] 81 mg PO DAILYCM #30 tablet 04/15/18 Atorvastatin Calcium [Lipitor] 40 mg PO QHS #30 tablet 04/15/18 Lisinopril [Zestril] 2.5 mg PO DAILY #30 tablet 04/15/18 Metoprolol Tartrate [Lopressor (beta stephon)] 25 mg PO BID #60 tablet 04/15/18 Ticagrelor [Brilinta] 90 mg PO BID #60 tablet 04/15/18 Following Prescrptions Were Given to Patient: Aspirin E.C. [Ecotrin] 81 mg PO DAILYCM #30 tablet Atorvastatin Calcium [Lipitor] 40 mg PO QHS #30 tablet Lisinopril [Zestril] 2.5 mg PO DAILY #30 tablet Metoprolol Tartrate [Lopressor (beta stephon)] 25 mg PO BID #60 tablet Ticagrelor [Brilinta] 90 mg PO BID #60 tablet Primary Care Physician: Herb Middleton MD [Primary Care Provider] - Please follow up with your Primary Care Physician in: one week Please Follow Up With: Carlos Rojas MD When: 1-2 weeks Patient Instructions: Symptoms of a Heart Attack, Risks and Complications of Angiography, Discharge Instructions for Heart Attack, Exercising After a Heart Attack Disposition: Home Minutes spent on discharge:: 40 Patient Condition:: Stable Medical Necessity - Tobacco Use Smoking Status: Never smoker Meaningful Use Info Meaningful Use Diagnoses (Choose all that apply): AMI - AMI Aspirin given w/in 24hrs of arrival?: Yes ASA at discharge?: Yes Statins at discharge?: Yes Ramon/ARB at discharge?: No Reason Ramon/ARB not ordered:: Not indicated Beta Stephon at discharge?: Yes Done w/ Acute RI measure.: Yes Code Visit Inpatient E&M: 24710 Disch Hosp
--- NOTE | 2018-04-15 10:44 | DCINST_ITS ---
- Discharge Diagnoses Current Active Problems: Current Active and Chronic Problems Chest pain (Acute) NSTEMI (non-ST elevated myocardial infarction) (Acute) You will use the following diet at home:: Cardiac Your food should be the consistency of: Regular Discharge Activity: Return to Normal Activity Weight Bearing Status: Weight bearing as tolerated Call your doctor if you observe: Fever of 101 or Higher, Dizziness, Swelling in the ankles, Chest pain, Increased palpitations (irregular heartbeat) Instructions: Symptoms of a Heart Attack, Risks and Complications of Angiography, Exercising After a Heart Attack, Discharge Instructions for Heart Attack Allergies/Adverse Reactions: Allergies No Known Allergies Allergy (Verified 04/13/18 08:42) Medications to take at Discharge Cholecalciferol (Vitamin D3) [Optimal D3] 50,000 unit PO QWEEK 06/17/15 Colchicine 0.6 mg PO DINNER PRN 06/17/15 Ranitidine [Zantac] 150 mg PO BID 06/17/15 ALPRAZolam [Xanax] 0.5 mg PO BID 12/31/15 Lactulose [Chronulac] 20 gm PO BID 12/31/15 Acetaminophen [Tylenol Tablet] 650 mg PO Q8 PRN 04/13/18 Aspirin E.C. [Ecotrin] 81 mg PO DAILYCM #30 tablet 04/15/18 Atorvastatin Calcium [Lipitor] 40 mg PO QHS #30 tablet 04/15/18 Metoprolol Tartrate [Lopressor (beta shreya)] 25 mg PO BID #60 tablet 04/15/18 Ticagrelor [Brilinta] 90 mg PO BID #60 tablet 04/15/18 The following prescriptions were given: Aspirin E.C. [Ecotrin] 81 mg PO DAILYCM #30 tablet Atorvastatin Calcium [Lipitor] 40 mg PO QHS #30 tablet Metoprolol Tartrate [Lopressor (beta shreya)] 25 mg PO BID #60 tablet Ticagrelor [Brilinta] 90 mg PO BID #60 tablet Primary Care Physician: Herb Middleton MD [Primary Care Provider] - Please follow up with your Primary Care Physician in: one week Test Results: Test results from this visit will be discussed in further detail at your follow- up appointment, if applicable. Please Follow Up With: Carlos Rojas MD When: 1-2 weeks Proposed Discharge Date: 04/15/18
--- NOTE | 2018-04-15 11:04 | CASEMGMT ---
Per Kayla, special agent in charge, pt to be sent home on Brilinta at discharge and med already e-scribed to [facility]. Call to [facility] and per nancy, pt's co-pay for Brilinta is $3.17 at this time. Pt already given Brilinta savings card. Pt is ready for discharge at this time. Boo RAMOS CM
--- NOTE | 2018-04-16 15:07 | CASEMGMT ---
RICHARD MUÑOZ Discharge F/U Phone Call LACE: Alexandrea Strata: 3 Discharge date: 04/15/18 Call date: 04/16/18 Call time: [id number] Duration: 2 minutes Admission dx: NSTEMI Pt states has been doing 'not too bad' since discharge yesterday. Pt states he does have slight weakness and feels tired since discharge. Pt states no questions regarding discharge instructions and medications at this time. Pt states has f/u appt scheduled with Dr. Middleton and plans to keep appt. Pt states no suggestions for WC at this time and states 'Everything went smoothly and I got good care for the most part.' Pt does not elaborate on the care at this time. Pt voices no further questions/concerns/needs at this time. S[place] RICHARD MUÑOZ
== END 2018-04-15 11:59 | disposition home or self-care (01) | DRG 247 ==
LOC: ED 08:58 → CLSP 12:27 → ICU 12:31 → PCU 04-14 16:25
PROVIDERS: Internal Medicine Cardiovascular Disease; Emergency Provider Emergency Medicine; Family Provider Family Medicine; PCP Family Medicine; Visit Provider Student in an Organized Health Care Education/Training Program
DX: I21.4 Non-ST elevation (NSTEMI) myocardial infarction (principal); M10.9 Gout, unspecified; F32.9 Major depressive disorder, single episode, unspecified; M54.9 Dorsalgia, unspecified; F10.21 Alcohol dependence, in remission; E78.00 Pure hypercholesterolemia, unspecified; Z95.5 Presence of coronary angioplasty implant and graft; I25.110 Atherosclerotic heart disease of native coronary artery with unstable angina pectoris; I10 Essential (primary) hypertension
CPT/HCPCS: 36415; 71045; 71275; 80048; 80061; 84484; 85025; 85027; 85347; 85379; 92928; 93005; 93306; 93458; 97802; 99152; 99153; 99285; J7030; J7040; Q9957; Q9967; A4216; C1725; C1769; C1874; C1887; C1894; C8929; C9600; J2405

== ENCOUNTER 2018-07-07 17:13 | Emergency (ER) | payer OTHER, MEDICARE, SELFPAY ==
[2018-04-13 12:49] VITALS: BMI 35.5
[2018-04-15 08:41] VITALS: BMI 34.8
[2018-07-07 17:14] VITALS: BP 152/60; PULSE 62; RESP 17; TEMP 36.5; O2SAT 98; BMI 34.2
[2018-07-07 17:22] VITALS: O2SAT 98
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
[2018-07-07] MEDS: Morphine 4 MG/ML Syringe IV ×2 (17:57→19:50)
[2018-07-07] MEDS: Ondansetron 4 MG/2 ML Vial IV (17:57)
[2018-07-07 18:12] LABS: Absolute Lymphocyte Count 1.73 X10^3/ul (0.83-4.51); Absolute Neutrophil Count 6.6 X10^3/uL (2.0-7.7); Basophil# 0.05 X10^3/uL; Basophil% 0.5 % (0-1); Eosinophil# 0.19 X10^3/uL; Hematocrit 43.3 % (40-54); Hemoglobin 14.5 g/dl (13.0-16.5); Lymphocyte # 1.73 X10^3/ul (4.0); Lymphocyte % 17.8 % (19-41); Mean Corp Hgb Conc 33.5 g/gl (32-36); Mean Corpuscular Volume 92.5 fL (80-94); Mean Platelet Vol. 9.8 fl (6.2-12.0); Monocyte# 1.06 X10^3/uL; Monocyte% 10.9 % (0-10); Neutrophil # 6.56 X10^3/uL (2.7-7.7); Neutrophil % 67.7 % (47-70); Platelet Count 219 K/mm3 (150-450); RBC Distribution Width CV 13.6 % (11.6-14.6); RBC Distribution Width SD 44.9 fl (35.1-43.9); Red Blood Count 4.68 M/mm3 (4.6-6.2); White Blood Count 9.7 K/mm3 (4.4-11.0)
[2018-07-07 18:21] LABS: POSITIVE COUNT NO; POSITIVE DIFFERENTIAL NO; POSITIVE MORPHOLOGY NO
[2018-07-07 18:35] LABS: Prothrombin Time (Protime)PT. 12.7 SECONDS (11.7-14.9)
[2018-07-07 18:36] LABS: Partial Thromboplast Time 26.3 Seconds (24.1-36.2)
[2018-07-07 18:37] LABS: ALB/GLOB Ratio 1.1 RATIO (0.9-2.4); AST(SGOT) 29 U/L (15-37); Alanine Aminotransfer ALT/SGPT 49 U/L (16-61); Albumin, Serum 3.8 g/dL (3.2-5.0); Alkaline Phosphatase 74 U/L (45-117); Anion Gap 7 (5-15); BUN 31 mg/dL (7-18); BUN/Creat Ratio 20.8 RATIO (10-20); Calcium,Total 8.6 mg/dL (8.5-10.1); Chloride 115 mmol/L (98-107); Creatinine, Serum 1.49 mg/dL (0.70-1.30); EST Glomerular Filtration Rate 50 mL/min (>60); Est Glom Filt Rate - Afr Amer 60 mL/min (>60); Estimated Creatinine Clearance 43.41 ml/min; Globulin 3.4 g/dL (2.2-4.2); Glucose 88 mg/dL (74-106); Potassium 4.2 mmol/L (3.5-5.1); Protein, Total 7.2 g/dL (6.4-8.2); Sodium Level 143 mmol/L (136-145)
[2018-07-07 19:54] VITALS: PULSE 80; RESP 18
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
== END 2018-07-07 20:20 | disposition home or self-care (01) ==
PROVIDERS: Emergency Provider Emergency Medicine; Family Provider Family Medicine; PCP Family Medicine
DX: R07.89 Other chest pain (principal); R10.9 Unspecified abdominal pain; S30.0XXA Contusion of lower back and pelvis, initial encounter; V47.6XXA Car passenger injured in collision with fixed or stationary object in traffic accident, initial encounter; Y93.89 Activity, other specified; Y92.488 Other paved roadways as the place of occurrence of the external cause; Y99.9 Unspecified external cause status; I10 Essential (primary) hypertension; E78.00 Pure hypercholesterolemia, unspecified; I25.10 Atherosclerotic heart disease of native coronary artery without angina pectoris; I25.2 Old myocardial infarction; Z79.82 Long term (current) use of aspirin
CPT/HCPCS: 71260; 74177; 80053; 85025; 85610; 85730; 96374; 96375; 96376; 99285; J7030; J7040; Q9967; J2405

== ENCOUNTER 2018-09-26 21:04 | Emergency (ER) | payer MEDICARE, SELFPAY ==
[2018-04-15 08:41] VITALS: BMI 34.8
[2018-09-26 21:06] VITALS: BP 154/95; PULSE 66; RESP 22; TEMP 36.1; O2SAT 98; BMI 35.5
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
[2018-09-26] MEDS: 0.9% Normal Saline 1,000 ML 250 ML IV (21:56)
[2018-09-26] MEDS: Morphine 4 MG/ML Syringe IV ×2 (21:58→23:21)
[2018-09-26] MEDS: Ondansetron 4 MG/2 ML Vial IV (21:58)
[2018-09-26 22:07] LABS: Absolute Lymphocyte Count 3.62 X10^3/ul (0.83-4.51); Absolute Neutrophil Count 8.3 X10^3/uL (2.0-7.7); Basophil# 0.03 X10^3/uL; Basophil% 0.2 % (0-1); Eosinophil# 0.09 X10^3/uL; Eosinophils% 0.7 % (0-5); Hemoglobin 14.2 g/dl (13.0-16.5); Lymphocyte # 3.62 X10^3/ul (4.0); Lymphocyte % 27.2 % (19-41); Mean Corp Hgb Conc 34.6 g/gl (32-36); Mean Corpuscular Hgb 31.3 pg (27.0-32.0); Mean Corpuscular Volume 90.3 fL (80-94); Mean Platelet Vol. 9.9 fl (6.2-12.0); Monocyte# 1.18 X10^3/uL; Monocyte% 8.9 % (0-10); Neutrophil # 8.27 X10^3/uL (2.7-7.7); Neutrophil % 62.2 % (47-70); Platelet Count 247 K/mm3 (150-450); RBC Distribution Width CV 13.7 % (11.6-14.6); RBC Distribution Width SD 44.6 fl (35.1-43.9); Red Blood Count 4.54 M/mm3 (4.6-6.2); White Blood Count 13.3 K/mm3 (4.4-11.0)
[2018-09-26 22:08] LABS: POSITIVE COUNT NO; POSITIVE DIFFERENTIAL NO; POSITIVE MORPHOLOGY NO
[2018-09-26 22:15] LABS: Anion Gap 7 (5-15); BUN 36 mg/dL (7-18); BUN/Creat Ratio 22.2 RATIO (10-20); Calcium,Total 9.1 mg/dL (8.5-10.1); Chloride 111 mmol/L (98-107); Creatinine, Serum 1.62 mg/dL (0.70-1.30); EST Glomerular Filtration Rate 45 mL/min (>60); Est Glom Filt Rate - Afr Amer 55 mL/min (>60); Estimated Creatinine Clearance 39.38 ml/min; Glucose 86 mg/dL (74-106); Sodium Level 140 mmol/L (136-145)
[2018-09-26 22:44] LABS: Bacteria 0 SEEN /hpf (None Seen); Mucous, Urine 0 SEEN /hpf (<or=2+); Squamous Epithelial Cells - UA 0 SEEN /hpf (0-5); White Blood Cells 0 SEEN /hpf (0-5)
[2018-09-26 22:47] LABS: Color, Urine Yellow (Yellow); Glucose, Dipstick Normal (Normal); Ketone-Dipstick Negative (Negative); Leukocyte Esterase-Dipstick Negative /ul (Negative); Nitrite-Dipstick Negative (Negative); Occult Blood-Urine 250 /ul (Negative); Protein-Dipstick Negative (Negative); Specific Gravity, Urine 1.015 (1.002-1.030); Urine Bilirubin Dipstick Negative (Negative); Urine Clarity Clear (Clear); Urine Urobilinogen Normal (Normal)
--- NOTE | 2018-09-26 22:52 | ED.DCSUM_ITS ---
- ER Visit Summary Date of Service: 09/26/18 Chief Complaint: Left flank pain History of Present Illness: The patient is a 68 M who presents with left flank pain that began suddenly approximately 2 hours prior to arrival. Patient describes the pain as stabbing. Patient states pain is localized to the left flank. Patient states nothing makes it better or worse. Patient is unable to find a position of comfort. Patient denies any nausea or vomiting. Patient denies any fevers or chills. Patient denies any dysuria or hematuria. Patient states he has never had any pain like this in the past. states that the patient had pain on his right flank a few days ago that resolved. Physical Examination: Vital signs are stable. Patient is afebrile. Patient with no acute distress. Oral mucosa is pink and moist. Neck is supple. Trachea is midline. There is no JVD noted. Heart was regular rate and rhythm. Lungs are clear and equal bilaterally. Abdomen is soft. Bowel sounds are normal. There is some left CVA tenderness. There is no rebound or guarding noted. Cranial nerves II through XII are intact. There are no focal motor or sensory deficits noted. Test Results: CT scan of the abdomen and pelvis was obtained. There is a 2.5 mm stone at the left ureterovesicular junction with hydronephrosis and hydroureter. CBC showed a mild leukocytosis of 13.3. Basic metabolic profile showed a slightly elevated creatinine of 1.62 which is slightly elevated compared to previous results however there were some results in the past that were similar. Urinalysis does not show any evidence of urinary tract infection. There is some occult blood in 5-10 red blood cells. Emergency Department Course and Treatment: Patient was given IV fluids, morphine, and Zofran. Patient was still having some pain but was feeling better. Patient was given a repeat dose of morphine here. Patient was given a prescription for Percocet. Patient was instructed to follow-up with his primary care physician in 5 to 7 days. Patient was also given a referral for urology. states that she has Phenergan at home to take as needed for nausea. Patient and his understood and were agreeable with the plan. All questions were answered. Disposition: Discharge home Impression: Left ureteral calculus This note was generated with [employer] software. It may contain incorrect words, spelling, and punctuation that were not noted in review of the chart prior to signing ED Disposition - Plan for ED Patient: Diagnosis: Left ureteral calculus Instructions: ED Stone Renal W Colic Prescriptions: Oxycodone HCl/Acetaminophen [Percocet 5/325] 1 tab PO Q6H PRN PRN 3 Days #12 tab PRN Reason: Pain Referrals: Herb Middleton MD [Primary Care Provider] - 5-7 Days Dirk Emerson MD [STAFF PHYSICIAN] -
[2018-09-26 22:56] LABS: Red Blood Cells-Urine 5-10 SEEN /hpf (0-5)
[2018-09-26 23:18] VITALS: BP 127/68; PULSE 56; RESP 26; O2SAT 98
[2018-09-26 23:24] VITALS: BP 127/68
== END 2018-09-26 23:40 | disposition home or self-care (01) ==
LOC: ED 22:03
PROVIDERS: Emergency Provider Emergency Medicine; Family Provider Family Medicine; PCP Family Medicine
DX: N13.2 Hydronephrosis with renal and ureteral calculous obstruction (principal); I25.10 Atherosclerotic heart disease of native coronary artery without angina pectoris; I25.2 Old myocardial infarction
CPT/HCPCS: 74176; 80048; 81001; 85025; 96361; 96374; 96375; 96376; 99282; J7030; A4216; J2405

== ENCOUNTER → 2018-12-24 11:30 | Outpatient (CLI) | payer MEDICARE, SELFPAY ==
[2018-04-15 08:41] VITALS: BMI 34.8
[2018-12-24 13:41] LABS: Anion Gap 9 (5-15); BUN 25 mg/dL (7-18); BUN/Creat Ratio 15.1 RATIO (10-20); Calcium,Total 8.9 mg/dL (8.5-10.1); Chloride 108 mmol/L (98-107); Creatinine, Serum 1.66 mg/dL (0.70-1.30); EST Glomerular Filtration Rate 44 mL/min (>60); Est Glom Filt Rate - Afr Amer 53 mL/min (>60); Glucose 97 mg/dL (74-106); PSA,Total- Diagnostic 1.39 ng/mL (0.0-4.0); Potassium 4.2 mmol/L (3.5-5.1); Sodium Level 138 mmol/L (136-145)
== END ==
PROVIDERS: Family Provider Family Medicine; PCP Family Medicine; Referring Provider Urology; Visit Provider Urology
DX: N40.2 Nodular prostate without lower urinary tract symptoms (principal); R31.9 Hematuria, unspecified
CPT/HCPCS: 36415; 80048; 84153

== ENCOUNTER → 2018-12-31 07:41 | Outpatient (CLI) | payer MEDICARE, SELFPAY ==
[2018-04-15 08:41] VITALS: BMI 34.8
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
== END ==
PROVIDERS: Family Provider Family Medicine; PCP Family Medicine; Referring Provider Urology; Visit Provider Urology
DX: R31.9 Hematuria, unspecified (principal); N41.9 Inflammatory disease of prostate, unspecified; Z87.442 Personal history of urinary calculi
CPT/HCPCS: 74176

== ENCOUNTER 2019-01-07 11:25 | Inpatient (IN) | payer MEDICARE, SELFPAY ==
[2018-04-15 08:41] VITALS: BMI 34.8
[2019-01-07 11:40] VITALS: BMI 34.2; BMI 34.3
[2019-01-07 11:46] VITALS: BP 129/70; PULSE 68; RESP 18; TEMP 36.3; O2SAT 96
--- NOTE | 2019-01-07 11:47 | HP.PCM_ITS ---
History and Physical Date of Admission: 01/07/19 Patient returns, 68-year-old male with a history of kidney stones recently pass a stone in September now comes back and is been having more difficulties with urination, started him on finasteride and tamsulosin reports a better flow, better emptying, less frequency, main issue now is onset of severe left flank pain nausea vomiting not feeling well. Last CAT scan the stone that was nonobstructive in the left kidney but I suspect kidney stone is moved will admit the patient for surgery for tomorrow ALLERGIES: None MEDICATIONS: Amino Acid Aspir 81 Brilinta Dopaboost Finasteride 5 mg tablet 1 tablet PO Daily Lactulose Lisinopril Metoprolol Tartrate F-Easegt-T-Cysteine 600 mg capsule Probiotic Ranitidine Hcl Sulfamethoxazole Tamsulosin Hcl 0.4 mg capsule 1 capsule PO BID Vitamin D3 PSH: Laparoscopic Orchiectomy NON- PSH: Cholecystectomy Colonoscopy Coronary Artery Bypass Grafting Hand/finger Surgery Patient not documented to have received pneumococcal vaccination Rotator Cuff Surgery Total Knee Replacement PMH: Asymptomatic microscopic hematuria - 12/24/2018 Benign prostatic hyperplasia with lower urinary tract symptoms - 12/24/2018 Personal history of urinary calculi - 12/24/2018 Dysuria Hematuria, unspecified Hesitancy of micturition Personal history of urinary (tract) infections Poor urinary stream Retention of urine, unspecified NON- PMH: Essential (primary) hypertension Heart disease, unspecified Other amnesia Personal history of diseases of the ms sys and conn tiss 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 <DIV' Tobacco Use Assessment Completed: Used Tobacco in last 30 days? Does not use smokeless tobacco. Does not drink anymore. Does not use drugs. Drinks 1 caffeinated drink per day. Has not had a blood transfusion. REVIEW OF SYSTEMS: Constitutional: Patient reports chills and fever. Patient denies weight gain and weight loss. Genitourinary: Patient reports painful urination, history of stones, difficulty starting stream, and weak stream/scanty. Patient denies frequent urination, urinary retention, get up at night to void, leakage of urine, blood in the urine, frequent uti's, and bedwetting. Notes: Updated from previous visit 12/24/2018 with review from patient as noted above. VITAL SIGNS: 01/07/2019 10:55 AM Weight 210 lb / 95.25 kg Height 66 in / 167.64 cm BP 136/72 mmHg BMI 33.9 kg/m? - BMI Counseling was provided. MULTI-SYSTEM PHYSICAL EXAMINATION: Constitutional: Well-nourished. No physical deformities. Normally developed. Good grooming. Neck: Neck symmetrical, not swollen. Normal tracheal position. Respiratory: No labored breathing, no use of accessory muscles. Cardiovascular: Normal temperature, normal extremity pulses, no swelling, no varicosities. Lymphatic: No enlargement of neck, axillae, groin. Skin: No paleness, no jaundice, no cyanosis. No lesion, no ulcer, no rash. Neurologic / Psychiatric: Oriented to time, oriented to place, oriented to person. No depression, no anxiety, no agitation. Gastrointestinal: No mass, no tenderness, no rigidity, non obese abdomen. Eyes: Normal conjunctivae. Normal eyelids. Ears, Nose, Mouth, and Throat: Left ear no scars, no lesions, no masses. Right ear no scars, no lesions, no masses. Nose no scars, no lesions, no masses. Normal hearing. Normal lips. Musculoskeletal: Normal gait and station of head and neck. PAST DATA REVIEWED: Source Of History: Patient 12/24/18 05/24/18 PSA Total PSA 1.39 ng/mL 0.28 Notes [facility] [address] [place] [address]. [place], [place], [address] This test was performed using the TPSA assay method for the [employer] chemistry system. Values obtained with different assay methods cannot be used interchangably. When changing PSA assays in the course of monitoring a patient, additional sequential testing should be carried out to confirm baseline values. PROCEDURES: Urinalysis - [address] Dipstick Dipstick Cont'd Specimen: Voided Blood: about 50 Appearance: Clear pH: 5.0 Color: Yellow Protein: Neg Glucose: Normal Urobilinogen: Neg Bilirubin: Neg Nitrites: Neg Ketones: Neg Leukocyte Esterase: Neg ASSESSMENT: ICD-10 Details 1 : Benign prostatic hyperplasia with lower urinary tract symptoms - N40.1 2 Calculus of kidney - N20.0 PLAN: Letter(s): Created for Patient: Clinical Summary Notes: 68-year-old male with new kidney stone in the left side is moved causing obstruction severe pain. Will admit to the hospital for observation plan to surgery tomorrow for shockwave lithotripsy possible stent.
[2019-01-07] MEDS: 0.9% Normal Saline 1,000 ML 75 ML IV (12:05)
[2019-01-07] MEDS: Morphine 2 MG/ML Syringe IV ×4 (12:05→21:26)
[2019-01-07] MEDS: Ondansetron 4 MG/2 ML Vial IV ×2 (12:06→21:26)
--- NOTE | 2019-01-07 12:36 | RAD_ITS ---
STUDY: X-RAY - ABDOMEN/PELVIS REASON FOR EXAM: Male, 68 years old. Kidney stones. TECHNIQUE: Two AP supine views of the abdomen and pelvis. COMPARISON: CT of the abdomen and pelvis, December 31, 2018. FINDINGS: Normal visualized lung bases. There is an unremarkable bowel gas pattern. There is no demonstrated free abdominal air. There is a 4 mm rounded density overlying the upper pole of the right kidney consistent with the calcification seen on CT. A left renal calculus is not well visualized. There is an ovoid density measuring 6 x 3 mm near the tip of the left spinous process of L2. The visualized liver, spleen and kidneys are grossly normal in size and morphology. Stable pelvic phleboliths. Stable degenerative changes of the lumbar spine. RAD/Abdomen Single View IMPRESSION: 1. Stable right upper pole renal calculus. 2. Nonvisualization left renal calculus. There is a density adjacent to the spinous process of L2. Ureteral calculus cannot BE completely ruled out. Electronically Signed: Jamaal Babin DO at 16:55 EDT Tel [phone], Service support ,
[2019-01-07] MEDS: HYDROcodone Bitartrate/Apap 5/325 Tablet PO (17:25)
[2019-01-07 17:46] VITALS: BP 130/70; PULSE 72; RESP 16; TEMP 36.6; O2SAT 96
[2019-01-07 18:01] LABS: Bedside Glucose 127 mg/dL (70-110)
[2019-01-07] MEDS: 0.9% NaCl Peripheral Flush Adult/Peds IV (21:33)
[2019-01-07] MEDS: ALPRAZolam 0.5 MG Tablet PO (21:33)
[2019-01-07 21:34] VITALS: BP 147/71; PULSE 72
[2019-01-07] MEDS: Metoprolol Tartrate 25 MG Tablet PO (21:34)
[2019-01-07] MEDS: Atorvastatin Calcium 40 MG Tablet PO (21:34)
[2019-01-07 21:40] VITALS: BP 147/71; PULSE 71; RESP 18; TEMP 36.3; O2SAT 97
[2019-01-08] VITALS (11 sets, daily range): BP systolic 129–157; BP diastolic 65–87; PULSE 61–76; RESP 16–18; TEMP 36.3–36.9; O2SAT 93–99; BMI 34.2; BMI 34.3
[2019-01-08] MEDS: 0.9% NaCl Peripheral Flush Adult/Peds IV ×3 (00:34→05:29)
[2019-01-08] MEDS: Morphine 2 MG/ML Syringe IV ×6 (00:36→19:57)
[2019-01-08] MEDS: 0.9% Normal Saline 1,000 ML 75 ML IV ×3 (00:40→19:00)
[2019-01-08 01:26] LABS: Bedside Glucose 100 mg/dL (70-110)
[2019-01-08] MEDS: Ondansetron 4 MG/2 ML Vial IV (05:29)
[2019-01-08 06:02] LABS: Absolute Lymphocyte Count 2.34 X10^3/uL (0.83-4.51); Absolute Neutrophil Count 2.8 X10^3/uL (2.0-7.7); Basophil# 0.03 X10^3/uL; Basophil% 0.5 % (0-1); Eosinophil# 0.21 X10^3/uL; Eosinophils% 3.4 % (0-5); Hematocrit 35.2 % (40-54); Hemoglobin 11.8 g/dL (13.0-16.5); Lymphocyte # 2.34 X10^3/ul (4.0); Lymphocyte % 38.3 % (19-41); Mean Corp Hgb Conc 33.5 g/dL (32-36); Mean Corpuscular Hgb 31.7 pg (27.0-32.0); Mean Corpuscular Volume 94.6 fL (80-94); Mean Platelet Vol. 9.3 fl (6.2-12.0); Monocyte# 0.67 X10^3/uL; NRBC Flagged by Analyzer 0 % (0-5); Neutrophil % 45.8 % (47-70); Platelet Count 159 K/mm3 (150-450); RBC Distribution Width CV 13.7 % (11.6-14.6); Red Blood Count 3.72 M/mm3 (4.6-6.2); White Blood Count 6.1 K/mm3 (4.4-11.0)
[2019-01-08 06:26] LABS: Anion Gap 7 (5-15); BUN 21 mg/dL (7-18); BUN/Creat Ratio 13.7 RATIO (10-20); Calcium,Total 8.1 mg/dL (8.5-10.1); Chloride 112 mmol/L (98-107); Creatinine, Serum 1.53 mg/dL (0.70-1.30); EST Glomerular Filtration Rate 48 mL/min (>60); Est Glom Filt Rate - Afr Amer 58 mL/min (>60); Glucose 93 mg/dL (74-106); Potassium 3.9 mmol/L (3.5-5.1); Sodium Level 143 mmol/L (136-145)
--- NOTE | 2019-01-08 07:16 | PN_ITS ---
Subjective: Admitted for kidney stone KUB demonstrates stone is moved into an obstructing point in the UPJ on the left side plan for left ESWL possible stent - Physical Exam General: Alert, Oriented x3, Cooperative HEENT: Atraumatic, PERRLA, EOMI, Normocephalic Neck: Supple, No JVD, Negative Carotid Bruits Lungs: Clear to auscultation, Normal air movement Cardiovascular: Regular rate, No murmurs Abdomen: Bowel Sounds Present, Soft, Non Tender Extremities: No edema, Capillary Refill Less than 3 Seconds Skin: No rashes, No breakdown Musculoskeletal: No Tenderness to Palpation of Joints or Extremities Neurological: Cranial nerves II-XII grossly intact Psych/Mental Status: Normal Affect, Appropriate Vital Signs Temp Pulse Resp BP Pulse Ox 97.4 F L 65 18 129/75 H 99 01/08/19 05:41 01/08/19 05:41 01/08/19 05:41 01/08/19 05:41 01/08/19 05:41 Oxygen Delivery Method Room Air Weight: 96.298 kg Body Mass Index (BMI) 34.2 Finger Stick Blood Glucose 83 Intake and Output for Last 24 Hours 01/06/19 01/07/19 01/08/19 23:59 23:59 23:59 Intake Total 450 / 1412 1331 / 1331 Output Total 800 / 1250 800 / 800 Balance -350 / 162 531 / 531 Laboratory Tests Past 24 Hrs 01/08/19 01/08/19 05:50 05:50 WBC 6.1 RBC 3.72 L Hgb 11.8 L Hct 35.2 L MCV 94.6 H MCH 31.7 MCHC 33.5 RDW Std Deviation 47.0 H RDW Coeff of Leeann 13.7 Plt Count 159 MPV 9.3 Immature Gran % (Auto) 1.000 H Neut % (Auto) 45.8 L Lymph % (Auto) 38.3 [place] % (Auto) 11.0 H Eos % (Auto) 3.4 Baso % (Auto) 0.5 Absolute Neuts (auto) 2.8 Absolute Lymphs (auto) 2.34 Nucleated RBC % 0 Sodium 143 Potassium 3.9 Chloride 112 H Carbon Dioxide 24.0 Anion Gap 7 BUN 21 H Creatinine 1.53 H Estim Creat Clear Calc 41.70 Est GFR (MDRD) Af Amer 58 L Est GFR (MDRD) Non-Af 48 L BUN/Creatinine Ratio 13.7 Glucose 93 Calcium 8.1 L POC Glucose 01/08/19 01/07/19 00:26 17:56 POC Glucose 100 127 H Medical Necessity - Tobacco Use Smoking Status: Never smoker Assessment/Plan All Active Problems (Last Updated 04/16/18 @ 13:32 by Maty Mendoza) History of coronary artery stent placement (Resolved 04/13/18) Altered mental status (Resolved)
--- NOTE | 2019-01-08 08:00 | EKG12_ITS ---
Test Reason : PRE OP Blood Pressure : / mmHG Vent. Rate : 070 BPM Atrial Rate : 070 BPM P-R Int : 146 ms QRS Dur : 112 ms QT Int : 426 ms P-R-T Axes : 059 -36 058 degrees QTc Int : 460 ms Normal sinus rhythm Left axis deviation Abnormal ECG When compared with ECG of 15-APR-2018 05:45, No significant change was found Confirmed by FRIDA LIN ([id number]), publication editor VANESSA DUQUE ([id number]) on 01/09/2019 2:54:34 PM Referred By: Dirk Emerson Confirmed By:FRIDA LIN
[2019-01-08] MEDS: Lisinopril 2.5 MG Tablet PO (09:38)
[2019-01-08] MEDS: ALPRAZolam 0.5 MG Tablet PO ×2 (09:38→21:26)
[2019-01-08] MEDS: Metoprolol Tartrate 25 MG Tablet PO ×2 (09:38→21:24)
[2019-01-08 11:50] LABS: Bedside Glucose 109 mg/dL (70-110)
--- NOTE | 2019-01-08 17:46 | DCINST_ITS ---
Discharge Diet: Light diet - advance as tolerated Discharge Activity: Return to Normal Activity Call your doctor if you observe: Fever of 101 or Higher Suture Line Care: Avoid Pulling/Pushing, Avoid Pinching/Bending Allergies/Adverse Reactions: Allergies No Known Allergies Allergy (Verified 09/26/18 21:05) Medications to take at Discharge Cholecalciferol (Vitamin D3) [Optimal D3] 50,000 unit PO QWEEK 06/17/15 Colchicine 0.6 mg PO DINNER PRN 06/17/15 Ranitidine [Zantac] 150 mg PO BID 06/17/15 ALPRAZolam [Xanax] 0.5 mg PO BID 12/31/15 Lactulose [Chronulac] 20 gm PO DAILY 12/31/15 Aspirin E.C. [Ecotrin] 81 mg PO DAILYCM #30 tablet 04/15/18 Metoprolol Tartrate [Lopressor (beta shreya)] 25 mg PO BID #60 tablet 04/15/18 Ticagrelor [Brilinta] 90 mg PO BID #60 tablet 04/15/18 Finasteride [Proscar] 5 mg PO DAILY 01/07/19 Smz/Tmp Ds [Bactrim Ds] 1 tab PO BID 01/07/19 Tamsulosin HCl [Flomax] 0.4 mg PO BID 01/07/19 Primary Care Physician: Herb Middleton MD [Primary Care Provider] - Test Results: Test results from this visit will be discussed in further detail at your follow- up appointment, if applicable. Please Follow Up With: Dirk Emerson MD When: please call to make an appointment. Proposed Discharge Date: 01/09/19
--- NOTE | 2019-01-08 18:15 | OP.PCM_ITS ---
Report of Operation Date of Procedure: 01/08/19 Pre-Operative Diagnosis: Left renal calculi Post-Operative Diagnosis: The same Surgery/Procedure Performed:: Cystoscopy left stent placement left ESWL Description of Surgical Findings:: 68-year-old male was taken back to the operating room after smooth induction of general anesthesia, he was placed in dorsolithotomy position, penis and testicles were prepped and draped in usual sterile fashion, went into the bladder with a 21 Jamaican rigid cystourethroscope commenting entire length the urethra was normal, verumontanum was normal prostate was normal, bladder is normal, identified the left ureteral orifice and advanced a wire up into the kidney past the stone and then over the wire advanced a stent stent pushes down into the kidney, we then pulled the wire the stent in the kidney bladder good position, we then proceeded with shockwave lithotripsy and aim the F2 focal point of stone and delivered a total of 3000 shockwaves at a rate of 90 shocks per minute, hertz between 90 and 120, and we decreased power from 5 to 7 kV, at the end of the treatment shock wave therapy session of 3000 shockwaves no visible fragments were left to left stent in place patient anesthetic is currently being reversed we plan to see him back next week with a KUB and possible removal of the stent. Type of Anesthesia:: General Drains: stent left side - Admit VTE Documentation VTE Present on Admission: No VTE Mechan Device Prophylaxis: SCD's
[2019-01-08] MEDS: Mag Hydrox/Al Hydrox/Simeth 30 ML UDC PO (20:02)
[2019-01-08] MEDS: Ketorolac 15 MG/ML Vial IV (21:18)
[2019-01-08 22:10] LABS: Bedside Glucose 95 mg/dL (70-110)
[2019-01-09 01:45] VITALS: BMI 34.3
[2019-01-09 03:45] VITALS: BP 124/59; PULSE 61; RESP 18; TEMP 36.6; O2SAT 97
[2019-01-09] MEDS: Ketorolac 15 MG/ML Vial IV (04:13)
[2019-01-09] MEDS: Morphine 2 MG/ML Syringe IV (04:13)
[2019-01-09] MEDS: 0.9% NaCl Peripheral Flush Adult/Peds IV (04:14)
[2019-01-09] MEDS: 0.9% Normal Saline 1,000 ML 75 ML IV (04:14)
--- NOTE | 2019-01-09 07:36 | PCM.PN.BLA ---
Progress Note 68-year-old male status post ESWL for obstructing stone and pain doing much better this morning he has prescription for pain medicine antibiotics to go home with I see him next week to get the stent out he knows to call to make an appointment.
[2019-01-09 08:33] VITALS: BP 130/70; PULSE 63; RESP 18; TEMP 36.7; O2SAT 95
[2019-01-09] MEDS: HYDROcodone Bitartrate/Apap 5/325 Tablet PO (08:38)
[2019-01-09] MEDS: ALPRAZolam 0.5 MG Tablet PO (08:38)
[2019-01-09 08:39] VITALS: PULSE 63
[2019-01-09] MEDS: Metoprolol Tartrate 25 MG Tablet PO (08:39)
[2019-01-09] MEDS: Lactulose 20 GM/30 ML UDC PO (08:39)
[2019-01-09] MEDS: Lisinopril 2.5 MG Tablet PO (08:39)
--- NOTE | 2019-01-09 10:41 | CASEMGMT ---
RN CM Note: pt discharged prior to CM assessment. Per nursing report- pt ambulatory with SB assist. PCP: Dr. Middleton Insurance: [facility] Pharmacy: [facility] Pharmacy, [facility]: Rich Roman, F/U appointments: pt to call Dr. Middleton and Dr. Emerson on dc to set up appts. No dc needs identified by nursing. Briseyda PETEN RN ACM
== END 2019-01-09 09:49 | disposition home or self-care (01) | DRG 661 ==
PROVIDERS: Admitting Provider Urology; Family Provider Family Medicine; PCP Family Medicine; Referring Provider Urology; Visit Provider Urology
PROC: 0TF4XZZ Fragmentation in Left Kidney Pelvis, External Approach (ICD-10-PCS; CPT 50590; principal; 2019-01-08 16:45)
DX: N20.0 Calculus of kidney (principal); Z87.442 Personal history of urinary calculi; N40.1 Benign prostatic hyperplasia with lower urinary tract symptoms
CPT/HCPCS: 36415; 74018; 80048; 82962; 85025; 93005; J7030; J7120; A4216; C1769; C2617; J2405

== ENCOUNTER → 2019-01-13 09:00 | Outpatient (CLI) | payer MEDICARE, SELFPAY ==
[2018-04-15 08:41] VITALS: BMI 34.8
[2019-01-08 09:49] VITALS: BMI 34.2
--- NOTE | 2019-01-13 09:35 | RAD_ITS ---
STUDY: X-RAY - ABDOMEN/PELVIS REASON FOR EXAM: Male, 68 years old. Evaluation after kidney stone removal. TECHNIQUE: Single AP view of the abdomen / pelvis. COMPARISON: January 07, 2019 FINDINGS: Normal visualized lung bases. There is an unremarkable bowel gas pattern. There is no demonstrated free abdominal air. Ureteral stent on the left. Calcification seen on the prior study on the left is no longer visualized. Small 3 mm in diameter calcification projected over the midpole of the right kidney unchanged. Cholecystectomy clips unchanged. Normal visualized osseous structures. RAD/Abdomen Single View IMPRESSION: Stable right calcification. Left ureteral stent with no complications identified. Electronically Signed: Josue Garcia MD at 10:15 EDT , Service support ,
== END ==
PROVIDERS: Family Provider Family Medicine; PCP Family Medicine; Referring Provider Urology; Visit Provider Urology
DX: N20.0 Calculus of kidney (principal)
CPT/HCPCS: 74018

== ENCOUNTER 2019-01-24 13:59 | Day surgery (SDC) | payer MEDICARE, SELFPAY ==
[2018-04-15 08:41] VITALS: BMI 34.8
[2019-01-08 09:49] VITALS: BMI 34.2
[2019-01-24] VITALS (8 sets, daily range): BP systolic 116–152; BP diastolic 68–91; PULSE 67–79; RESP 16–18; TEMP 36.3–36.9; O2SAT 95–98; BMI 34.7
[2019-01-24] MEDS: Lactated Ringers 1,000 ML 100 ML IV (15:30)
[2019-01-24] MEDS: Cefazolin 2 GM in 0.9% Normal Saline 100 ML IV (15:31)
--- NOTE | 2019-01-24 16:05 | DCINST_ITS ---
Discharge Diet: Light diet - advance as tolerated Discharge Activity: Return to Normal Activity Suture Line Care: Avoid Pulling/Pushing, Avoid Pinching/Bending Instructions: Treating Kidney Stones: Ureteroscopic Stone Removal Allergies/Adverse Reactions: Allergies No Known Allergies Allergy (Verified 01/22/19 14:17) Medications to take at Discharge Cholecalciferol (Vitamin D3) [Optimal D3] 50,000 unit PO QWEEK 06/17/15 Colchicine 0.6 mg PO DINNER PRN 06/17/15 Ranitidine [Zantac] 150 mg PO BID 06/17/15 ALPRAZolam [Xanax] 0.5 mg PO BID 12/31/15 Lactulose [Chronulac] 20 gm PO DAILY 12/31/15 Aspirin E.C. [Ecotrin] 81 mg PO DAILYCM #30 tablet 04/15/18 Metoprolol Tartrate [Lopressor (beta shreya)] 25 mg PO BID #60 tablet 04/15/18 Ticagrelor [Brilinta] 90 mg PO BID #60 tablet 04/15/18 Finasteride [Proscar] 5 mg PO DAILY 01/07/19 Tamsulosin HCl [Flomax] 0.4 mg PO BID 01/07/19 Ciprofloxacin [Cipro] 500 mg PO BID #6 tab 01/24/19 Oxycodone HCl/Acetaminophen [Percocet 10-325 mg Tablet] 1 tab PO Q6H PRN PRN 5 Days #14 tab 01/24/19 The following prescriptions were given: Ciprofloxacin [Cipro] 500 mg PO BID #6 tab Prescription Printed Oxycodone HCl/Acetaminophen [Percocet 10-325 mg Tablet] 1 tab PO Q6H PRN PRN 5 Days #14 tab PRN Reason: Pain Prescription Printed Primary Care Physician: Herb Middleton MD [Primary Care Provider] - Test Results: Test results from this visit will be discussed in further detail at your follow- up appointment, if applicable. Please Follow Up With: Dirk Emerson MD When: in 2 weeks, please call to make an appointment.
--- NOTE | 2019-01-24 16:06 | PCM.OPRPT ---
Report of Operation Date of Procedure: 01/24/19 Pre-Operative Diagnosis: Right renal calculi Post-Operative Diagnosis: The same Surgery/Procedure Performed:: Cystoscopy, right retrograde pyelogram, interpretation fluoroscopic images, right ureteroscopy laser lithotripsy of stone, no stent. Description of Surgical Findings:: 68-year-old male taken back to the operating room at the smooth induction of general anesthesia he was placed in dorsolithotomy position, the penis and testicles were prepped and draped in usual sterile fashion, went inside the bladder with a 21 Nepalese rigid cystourethroscope, the entire length urethra is normal, prostate was normal, inside the bladder bladder was normal, and cannulated the right ureter orifice with a Glidewire advanced a wire up to the kidney through the wire advanced a dual-lumen catheter and then put 2 wires up into the kidney and then performed a retrograde pyelogram look at the fluoroscopic images, I then backloaded the dual-lumen catheter off 1 of the wires second wire was a safety wire first wire was working wire went over the working wire was able to get up the ureter quite easily I then inspected the kidney upper pole midpole lower pole and located the stone in the upper pole I then performed laser lithotripsy and stone ~tiny fragments and then I went to the midpole of the another small stone or lasered and I worked my way down the ureter minimal to no trauma to the ureter nice and smooth ureter so decided not to leave a stent drained the bladder and patient anesthetic reversed plan to see him back in a few weeks for checkup. Type of Anesthesia:: General Drains: none - Admit VTE Documentation VTE Present on Admission: No VTE Mechan Device Prophylaxis: SCD's
[2019-01-24] MEDS: Lactated Ringers 1,000 ML 75 ML IV (16:37)
[2019-01-24] MEDS: Acetaminophen 325 MG Tablet 650 MG PO (17:27)
[2019-01-24] MEDS: oxyCODONE 5 MG Tablet 10 MG PO (17:28)
== END 2019-01-24 17:48 | disposition home or self-care (01) ==
LOC: SDC 13:59 → AC 14:01 → MS3 16:13
PROVIDERS: Family Provider Family Medicine; PCP Family Medicine; Referring Provider Urology; Visit Provider Urology
PROC: 0TJ98ZZ Inspection of Ureter, Via Natural or Artificial Opening Endoscopic (ICD-10-PCS; CPT 52352; principal; 2019-01-24 15:15)
DX: N20.0 Calculus of kidney (principal); K21.9 Gastro-esophageal reflux disease without esophagitis; I10 Essential (primary) hypertension; G47.30 Sleep apnea, unspecified; E78.00 Pure hypercholesterolemia, unspecified; N40.0 Benign prostatic hyperplasia without lower urinary tract symptoms; I25.2 Old myocardial infarction; Z48.816 Encounter for surgical aftercare following surgery on the genitourinary system; Z86.718 Personal history of other venous thrombosis and embolism; Z87.442 Personal history of urinary calculi
CPT/HCPCS: 00918; 52353; 76000; J7120; J2405

== ENCOUNTER 2019-01-26 03:56 | Emergency (ER) | payer MEDICARE, SELFPAY ==
[2018-04-15 08:41] VITALS: BMI 34.8
[2019-01-24 14:58] VITALS: BMI 34.7
[2019-01-26 03:56] VITALS: BP 163/116; PULSE 78; RESP 20; TEMP 36.5; O2SAT 96; BMI 35.9
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
[2019-01-26] MEDS: predniSONE 20 MG Tablet 60 MG PO (04:23)
[2019-01-26] MEDS: DiphenhydrAMINE 25 MG Capsule 50 MG PO (04:23)
[2019-01-26] MEDS: Cephalexin 250 MG Capsule 500 MG PO (04:23)
[2019-01-26] MEDS: HYDROcodone Bitartrate/Apap 5/325 Tablet PO (04:23)
[2019-01-26 04:27] VITALS: BP 169/100; PULSE 80; RESP 18; O2SAT 97
== END 2019-01-26 04:28 | disposition home or self-care (01) ==
LOC: ED 04:18
PROVIDERS: Emergency Provider Emergency Medicine; Family Provider Family Medicine; PCP Family Medicine
DX: S60.222A Contusion of left hand, initial encounter (principal); S60.221A Contusion of right hand, initial encounter; W45.8XXA Other foreign body or object entering through skin, initial encounter; Y84.8 Other medical procedures as the cause of abnormal reaction of the patient, or of later complication, without mention of misadventure at the time of the procedure; Y92.89 Other specified places as the place of occurrence of the external cause; Y93.9 Activity, unspecified; Y99.9 Unspecified external cause status; Z82.49 Family history of ischemic heart disease and other diseases of the circulatory system; Z90.49 Acquired absence of other specified parts of digestive tract
CPT/HCPCS: 99283

== ENCOUNTER 2019-01-26 19:49 | Inpatient (IN) | payer MEDICARE, SELFPAY ==
[2018-04-15 08:41] VITALS: BMI 34.8
[2019-01-26 03:56] VITALS: BMI 35.9
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
[2019-01-26 23:18] VITALS: BMI 36.3
[2019-01-26 23:30] VITALS: BP 182/95; PULSE 72; RESP 18; TEMP 36.4; O2SAT 97
[2019-01-26] MEDS: DiphenhydrAMINE 50 MG/ML Syringe 25 MG IV (23:49)
[2019-01-26 23:52] LABS: Lactic Acid 1.8 mmol/L (0.4-2.0)
[2019-01-27] VITALS (13 sets, daily range): BP systolic 119–175; BP diastolic 59–92; PULSE 75–95; RESP 16–80; TEMP 36.6–36.9; O2SAT 93–96
--- NOTE | 2019-01-27 00:10 | PCM.RX.CS ---
Consult Pharmacy has been consulted to manage selected antiobiotic: Vancomycin Type of Consult: New start Suspected Infection: Skin/Soft tissue Weight used for dosin kg Estimated Creatinine Clearance: 43.21 Goal Trough: 10-15 mcg/mL Pharmacy Plan for Drug Dosing: Pharmacy Service will continue to monitor and adjust dosing as required. Medications Vancomycin HCl 1,500 mg/ (Sodium Chloride) 530 mls @ 250 mls/hr IV Q24H RONALDO 1ST DOSE GIVEN 01/26 @ 1842 AT [facility] ER Follow-Up Labs: Trough Vancomycin Labs to be done on [date and time ordered]: 01/28 @ 1471
[2019-01-27] MEDS: 0.9% Normal Saline 1,000 ML 125 ML IV ×3 (00:29→17:07)
[2019-01-27] MEDS: 0.9% NaCl Peripheral Flush Adult/Peds IV ×2 (00:34→00:48)
[2019-01-27] MEDS: Tamsulosin HCl 0.4 MG Capsule PO ×3 (00:37→22:27)
[2019-01-27] MEDS: Famotidine 20 MG Tablet PO ×3 (00:38→22:27)
[2019-01-27] MEDS: Metoprolol Tartrate 25 MG Tablet 12.5 MG PO ×3 (00:39→22:27)
[2019-01-27] MEDS: ALPRAZolam 0.5 MG Tablet PO ×3 (00:47→22:26)
[2019-01-27] MEDS: Morphine 2 MG/ML Syringe IV (00:49)
[2019-01-27] MEDS: 0.9% NaCl IVPB Med Flush (250 mL) 15 ML IV (00:56)
[2019-01-27] MEDS: oxyCODONE 5 MG Tablet PO ×2 (03:21→07:31)
[2019-01-27 06:50] LABS: Absolute Lymphocyte Count 2.31 X10^3/uL (0.83-4.51); Absolute Neutrophil Count 9.1 X10^3/uL (2.0-7.7); Basophil# 0.05 X10^3/uL; Basophil% 0.4 % (0-1); Eosinophil# 0.02 X10^3/uL; Eosinophils% 0.2 % (0-5); Hematocrit 32.5 % (40-54); Hemoglobin 10.4 g/dL (13.0-16.5); Lymphocyte # 2.31 X10^3/ul (4.0); Lymphocyte % 17.5 % (19-41); Mean Corpuscular Hgb 30.8 pg (27.0-32.0); Mean Corpuscular Volume 96.2 fL (80-94); Mean Platelet Vol. 9.5 fl (6.2-12.0); Monocyte# 1.53 X10^3/uL; Monocyte% 11.6 % (0-10); NRBC Flagged by Analyzer 0 % (0-5); Neutrophil # 9.07 X10^3/uL (2.7-7.7); Neutrophil % 68.6 % (47-70); POSITIVE DIFFERENTIAL YES; Platelet Count 201 K/mm3 (150-450); RBC Distribution Width CV 13.7 % (11.6-14.6); RBC Distribution Width SD 48.6 fl (35.1-43.9); Red Blood Count 3.38 M/mm3 (4.6-6.2); White Blood Count 13.2 K/mm3 (4.4-11.0)
[2019-01-27 07:09] LABS: Differential Indicated SCAN CRITERIA MET
[2019-01-27 07:17] LABS: Anion Gap 6 (5-15); BUN 29 mg/dL (7-18); BUN/Creat Ratio 19.3 RATIO (10-20); Calcium,Total 7.5 mg/dL (8.5-10.1); Chloride 115 mmol/L (98-107); EST Glomerular Filtration Rate 49 mL/min (>60); Est Glom Filt Rate - Afr Amer 60 mL/min (>60); Estimated Creatinine Clearance 42.53 ml/min; Glucose 110 mg/dL (74-106); Potassium 4.3 mmol/L (3.5-5.1); Sodium Level 145 mmol/L (136-145)
[2019-01-27] MEDS: Polyethylene Glycol 3350 17 GM PACKET PO (09:52)
[2019-01-27] MEDS: hydrOXYzine PAM 25 MG Capsule 50 MG PO ×2 (09:52→16:58)
[2019-01-27] MEDS: Lisinopril 2.5 MG Tablet PO (09:53)
[2019-01-27] MEDS: Lactulose 20 GM/30 ML UDC PO (09:53)
[2019-01-27] MEDS: Finasteride 5 MG Tablet PO (09:53)
[2019-01-27] MEDS: HYDROcodone Bitartrate/Apap 5/325 Tablet PO ×2 (13:22→22:25)
--- NOTE | 2019-01-27 18:32 | PN_ITS ---
Patient Problems: Active and Suspected Problems (Last Updated 04/16/18 @ 13:32 by Maty Mendoza) Hematoma (Acute) Cellulitis (Acute) Lactic acidosis (Acute) Subjective: Patient was seen and examined today I looked at the patient's left hand today, it appears to me that this discoloration of the patient's hands may be from hemorrhage rather than actual cellulitis but I am not absolutely sure. I will have infectious diseases see the patient tomorrow to evaluate the patient. - Physical Exam General: Alert, Oriented x3, Cooperative, No apparent distress, Well developed HEENT: Atraumatic, PERRLA, EOMI, Normocephalic Oral: Moist Mucosa Neck: Supple, No JVD, Trachea Midline, Thyroid Normal Size and Texture Lungs: Clear to auscultation, Normal air movement, No rhonchi, No wheeze, No rales Cardiovascular: Regular rate, Regular Rhythm, Normal S1, Normal S2, No murmurs, PMI Normal, No rub noted Abdomen: Bowel Sounds Present, Soft, Non Tender Extremities: No clubbing, Capillary Refill Less than 3 Seconds, Edema - There is edema noted in both hands along with discoloration suggestive of previous hemorrhage under the skin. Skin: No breakdown, Rash Present - Rash covers the patient's hands up extending up into the patient's forearms Musculoskeletal: No Tenderness to Palpation of Joints or Extremities Neurological: Cranial nerves II-XII grossly intact, Neuro grossly intact, Sensory exam intact to light touch and pain, Coordination normal Psych/Mental Status: Normal Affect, Appropriate, Alert and oriented to time, place, person, mood and affect Vital Signs Temp Pulse Resp BP Pulse Ox 97.9 F 80 16 122/59 H 93 01/27/19 14:51 01/27/19 14:51 01/27/19 14:51 01/27/19 14:51 01/27/19 14:51 Oxygen Delivery Method Room Air Weight: 102 kg Body Mass Index (BMI) 36.3 Finger Stick Blood Glucose 83 Intake and Output for Last 24 Hours 01/25/19 01/26/19 01/27/19 23:59 23:59 23:59 Intake Total 3017.08 / 3017.08 Output Total 1750 / 1750 Balance 1267.08 / 1267.08 Laboratory Tests Past 24 Hrs 01/26/19 01/27/19 01/27/19 23:20 05:59 05:59 WBC 13.2 H RBC 3.38 L Hgb 10.4 L Hct 32.5 L MCV 96.2 H MCH 30.8 MCHC 32.0 RDW Std Deviation 48.6 H RDW Coeff of Leeann 13.7 Plt Count 201 MPV 9.5 Immature Gran % (Auto) 1.700 H Neut % (Auto) 68.6 Lymph % (Auto) 17.5 L Benson % (Auto) 11.6 H Eos % (Auto) 0.2 Baso % (Auto) 0.4 Absolute Neuts (auto) 9.1 H Absolute Lymphs (auto) 2.31 Nucleated RBC % 0 Diff Path Review May foll Sodium 145 Potassium 4.3 Chloride 115 H Carbon Dioxide 24.0 Anion Gap 6 BUN 29 H Creatinine 1.50 H Estim Creat Clear Calc 42.53 Est GFR (MDRD) Af Amer 60 Est GFR (MDRD) Non-Af 49 L BUN/Creatinine Ratio 19.3 Glucose 110 H Lactic Acid 1.8 Calcium 7.5 L Medical Necessity - Tobacco Use Smoking Status: Never smoker Tobacco Use: Non-smoker Assessment/Plan All Active Problems (Last Updated 04/16/18 @ 13:32 by Maty Mendoza) Hematoma (Acute) Cellulitis (Acute) Lactic acidosis (Acute) Altered mental status (Resolved) #1 hematoma of the hands-probably secondary to insertion of IVs in both hands along with the patient's concurrent use of Brilinta and aspirin-provide supportive care for the patient and keep the hands and forearms wrapped #2 possible cellulitis of the hands and forearms-patient is currently on Zosyn, he had an episode of severe itching today which I felt could been secondary to vancomycin administration previously, I have elected to keep the patient on vancomycin for now #3 coronary artery disease-stable at this time #4 chronic kidney disease stage III #5 chronic anxiety and depression #6 essential hypertension #7 status post cystoscopy, right retrograde pyelogram, right ureteroscopy laser lithotripsy of stone 01/24/2019 Code Visit Inpatient E&M: 41920 Subs Hosp L2
[2019-01-28] MEDS: 0.9% Normal Saline 1,000 ML 125 ML IV ×2 (01:07→09:30)
[2019-01-28 04:39] VITALS: BP 108/63; PULSE 68; RESP 16; TEMP 36.4; O2SAT 95
[2019-01-28 05:34] LABS: Absolute Lymphocyte Count 2.66 X10^3/uL (0.83-4.51); Absolute Neutrophil Count 3.5 X10^3/uL (2.0-7.7); Basophil# 0.06 X10^3/uL; Basophil% 0.8 % (0-1); Eosinophil# 0.25 X10^3/uL; Eosinophils% 3.3 % (0-5); Hematocrit 32.7 % (40-54); Hemoglobin 10.5 g/dL (13.0-16.5); Lymphocyte # 2.66 X10^3/ul (4.0); Lymphocyte % 34.6 % (19-41); Mean Corp Hgb Conc 32.1 g/dL (32-36); Mean Corpuscular Hgb 31.3 pg (27.0-32.0); Mean Corpuscular Volume 97.3 fL (80-94); Mean Platelet Vol. 9.1 fl (6.2-12.0); Monocyte# 0.92 X10^3/uL; NRBC Flagged by Analyzer 0 % (0-5); Neutrophil # 3.49 X10^3/uL (2.7-7.7); Neutrophil % 45.3 % (47-70); Platelet Count 172 K/mm3 (150-450); RBC Distribution Width CV 13.8 % (11.6-14.6); RBC Distribution Width SD 49.4 fl (35.1-43.9); Red Blood Count 3.36 M/mm3 (4.6-6.2); White Blood Count 7.7 K/mm3 (4.4-11.0)
[2019-01-28 05:57] LABS: Anion Gap 6 (5-15); BUN 22 mg/dL (7-18); BUN/Creat Ratio 15.2 RATIO (10-20); Calcium,Total 7.8 mg/dL (8.5-10.1); Chloride 118 mmol/L (98-107); Creatinine, Serum 1.45 mg/dL (0.70-1.30); EST Glomerular Filtration Rate 51 mL/min (>60); Est Glom Filt Rate - Afr Amer 62 mL/min (>60); Glucose 82 mg/dL (74-106); Potassium 4.5 mmol/L (3.5-5.1); Sodium Level 147 mmol/L (136-145)
[2019-01-28] MEDS: 0.9% NaCl Peripheral Flush Adult/Peds IV ×2 (06:19→09:43)
[2019-01-28] MEDS: HYDROcodone Bitartrate/Apap 5/325 Tablet PO (06:25)
[2019-01-28 06:58] VITALS: O2SAT 94
[2019-01-28 09:33] VITALS: BP 127/77; PULSE 78; RESP 16; TEMP 36.4; O2SAT 97
[2019-01-28 09:40] VITALS: PULSE 78
[2019-01-28] MEDS: Metoprolol Tartrate 25 MG Tablet 12.5 MG PO (09:40)
[2019-01-28] MEDS: Famotidine 20 MG Tablet PO (09:40)
[2019-01-28] MEDS: Lisinopril 2.5 MG Tablet PO (09:40)
[2019-01-28] MEDS: Lactulose 20 GM/30 ML UDC PO (09:40)
[2019-01-28] MEDS: Polyethylene Glycol 3350 17 GM PACKET PO (09:40)
[2019-01-28] MEDS: Finasteride 5 MG Tablet PO (09:40)
[2019-01-28] MEDS: Tamsulosin HCl 0.4 MG Capsule PO (09:40)
[2019-01-28] MEDS: Morphine 4 MG/ML Syringe IV (09:48)
[2019-01-28] MEDS: ALPRAZolam 0.5 MG Tablet PO (09:49)
--- NOTE | 2019-01-28 10:18 | PCM.HP.ID ---
Problem List (1) Hematoma Status: Acute Reason for Consult: hand pain Consulted by: Dr. Nicole History of Present Illness: The patient is a 68 year old M who had urology procedure for stones on 01/24, reports multiple piv attempts on both hands prior to OR. Afterwards, both hands with progressive swelling, pain, redness/bruising travelling up BUE. No drainage, mild chills. Came to ED, started on vanc/zosyn, hands still sore. Had some itching, so vanc was stopped. Full ROS performed and neg except as noted above. - Medical History Past Medical History (Chronic Problems): Chronic Problems (Last Updated 04/16/18 @ 13:32 by Maty Mendoza) Chronic kidney disease (CKD), stage III (moderate) (Chronic) Obesity (Chronic) Anxiety and depression (Chronic) Nephrolithiasis (Chronic) Atherosclerosis of coronary artery without angina pectoris (Chronic) History of coronary artery stent placement (Chronic 04/13/18) PCI-JOSE AGNEL-ISR Prox LCX w/ 3.0 x 14 mm Resolute Stent 04/13/18 [id number] RCA ? Essential (primary) hypertension (Chronic) Hyperlipidemia (Chronic) NSTEMI (non-ST elevated myocardial infarction) (Chronic 04/13/18) Allergies/Adverse Reactions: Allergies No Known Allergies Allergy (Verified 01/22/19 14:17) Home Medications: Ambulatory Orders Medication Instructions Recorded Cholecalciferol (Vitamin D3) 50,000 unit PO QWEEK 06/17/15 [Optimal D3] Colchicine 0.6 mg PO DINNER PRN 06/17/15 Ranitidine [Zantac] 150 mg PO BID 06/17/15 ALPRAZolam [Xanax] 0.5 mg PO BID 12/31/15 Lactulose [Chronulac] 20 gm PO DAILY 12/31/15 Aspirin E.C. [Ecotrin] 81 mg PO DAILYCM #30 tablet 04/15/18 Ticagrelor [Brilinta] 90 mg PO BID #60 tablet 04/15/18 Finasteride [Proscar] 5 mg PO QHS 01/07/19 Tamsulosin HCl [Flomax] 0.4 mg PO BID 01/07/19 Ciprofloxacin [Cipro] 500 mg PO BID #6 tab 01/24/19 Oxycodone HCl/Acetaminophen 1 tab PO Q6H PRN PRN 5 Days #14 tab 01/24/19 [Percocet 10-325 mg Tablet] Cephalexin [Keflex] 500 mg PO Q6 #40 cap 01/26/19 Lisinopril 2.5 mg PO DAILY 01/26/19 Metoprolol Tartrate 12.5 mg PO BID 01/26/19 Prednisone [Deltasone] 40 mg PO DAILY #10 tab 01/26/19 L. Acidophilus/Bifid. Animalis 2 ea PO DAILY 01/27/19 [Probiotic 5 Billion Cell Cap] Q-Nujnvq-m-Cysteine 1 cap PO DAILY 01/27/19 - Social History SMOKING STATUS:: Never smoker Vital Signs Temp Pulse Resp BP Pulse Ox 97.6 F L 78 16 127/77 H 97 01/28/19 09:33 01/28/19 09:40 01/28/19 09:33 01/28/19 09:33 01/28/19 09:33 Oxygen Delivery Method Room Air Weight: 102 kg Body Mass Index (BMI) 36.3 Finger Stick Blood Glucose 83 Laboratory Tests Past 24 Hrs 01/28/19 01/28/19 05:05 05:05 WBC 7.7 RBC 3.36 L Hgb 10.5 L Hct 32.7 L MCV 97.3 H MCH 31.3 MCHC 32.1 RDW Std Deviation 49.4 H RDW Coeff of Leeann 13.8 Plt Count 172 MPV 9.1 Immature Gran % (Auto) 4.000 H Neut % (Auto) 45.3 L Lymph % (Auto) 34.6 [place] % (Auto) 12.0 H Eos % (Auto) 3.3 Baso % (Auto) 0.8 Absolute Neuts (auto) 3.5 Absolute Lymphs (auto) 2.66 Nucleated RBC % 0 Sodium 147 H Potassium 4.5 Chloride 118 H Carbon Dioxide 23.0 Anion Gap 6 BUN 22 H Creatinine 1.45 H Estim Creat Clear Calc 44.00 Est GFR (MDRD) Af Amer 62 Est GFR (MDRD) Non-Af 51 L BUN/Creatinine Ratio 15.2 Glucose 82 Calcium 7.8 L - Other Studies Radiology: [] reviewed Other Studies: [] Route of nutrition/ use of supplements: [] Nutritional Intake: [] IV Site: [] Mohr Catheter: [] - Physical Exam General: Alert, Oriented x3, Cooperative, No apparent distress HEENT: Atraumatic, PERRLA, EOMI Neck: Supple, No Nodes Lungs: Clear to auscultation, Normal air movement Cardiovascular: Regular rate, Regular Rhythm, No murmurs Abdomen: Soft, Non Tender, Non-Distended Extremities: Edema Skin: - - Bilateral hands and forearms with swelling and bruising IV Site: Peripheral, without redness Musculoskeletal: No Tenderness to Palpation of Joints or Extremities Neurological: Cranial nerves II-XII grossly intact - Assessment/Plan Antibiotics: [] Assessment/Plan: [] Active and Suspected Problems (Last Updated 04/16/18 @ 13:32 by Maty Mendoza) Hematoma (Acute) Cellulitis (Acute) Lactic acidosis (Acute) BUE hematomas - no sign of infection, will stop zosyn Will follow, thank you.
[2019-01-28] MEDS: hydrOXYzine PAM 25 MG Capsule 50 MG PO (11:05)
[2019-01-28 12:32] LABS: Pathologist Review Reviewed
--- NOTE | 2019-01-28 13:07 | DCINST_ITS ---
- Discharge Diagnoses Current Active Problems: Current Active and Chronic Problems (Last Updated 04/16/18 @ 13:32 by Maty Mendoza) Hematoma (Acute) Cellulitis (Acute) Lactic acidosis (Acute) Chronic kidney disease (CKD), stage III (moderate) (Chronic) Obesity (Chronic) Anxiety and depression (Chronic) Nephrolithiasis (Chronic) You will use the following diet at home:: No restrictions Your food should be the consistency of: Regular Your liquids should be the consistency of: Regular/Thin Discharge Activity: Return to Normal Activity Weight Bearing Status: Full weight bearing Allergies/Adverse Reactions: Allergies No Known Allergies Allergy (Verified 01/22/19 14:17) Medications to take at Discharge Cholecalciferol (Vitamin D3) [Optimal D3] 50,000 unit PO QWEEK 06/17/15 Colchicine 0.6 mg PO DINNER PRN 06/17/15 Ranitidine [Zantac] 150 mg PO BID 06/17/15 ALPRAZolam [Xanax] 0.5 mg PO BID 12/31/15 Lactulose [Chronulac] 20 gm PO DAILY 12/31/15 Aspirin E.C. [Ecotrin] 81 mg PO DAILYCM #30 tablet 04/15/18 Ticagrelor [Brilinta] 90 mg PO BID #60 tablet 04/15/18 Finasteride [Proscar] 5 mg PO QHS 01/07/19 Tamsulosin HCl [Flomax] 0.4 mg PO BID 01/07/19 Lisinopril 2.5 mg PO DAILY 01/26/19 Metoprolol Tartrate 12.5 mg PO BID 01/26/19 F-Aqgxgr-o-Cysteine 1 cap PO DAILY 01/27/19 Hydrocodone Bitart/Apap 5-325 [[place] 5/325] 1 - 2 tablet PO Q6H PRN PRN 7 Days #28 tablet 01/28/19 hydrOXYzine pamoate capsule [Vistaril pamoate capsule] 50 mg PO Q6 PRN #40 cap 01/28/19 The following prescriptions were given: Hydrocodone Bitart/Apap 5-325 [[place] 5/325] 1 - 2 tablet PO Q6H PRN PRN 7 Days #28 tablet PRN Reason: Severe Pain (6-03/06) Transmission Status: Received by [id number] hydrOXYzine pamoate capsule [Vistaril pamoate capsule] 50 mg PO Q6 PRN #40 cap PRN Reason: itchiness Transmission Status: Pending to [facility] Primary Care Physician: Herb Middleton MD [Primary Care Provider] - Please follow up with your Primary Care Physician in: 1-2 weeks Test Results: Test results from this visit will be discussed in further detail at your follow- up appointment, if applicable.
[2019-01-28 13:09] VITALS: BP 112/58; PULSE 78; RESP 16; TEMP 36.6; O2SAT 96
--- NOTE | 2019-01-28 13:33 | CASEMGMT ---
RN CM Readmission Note Previous Admission: 01/08/19-01/09/19 Diagnosis: Kidney stones, stent placement DC Disposition: Home Current Admission Presentation: hematoma hands Intro role of CM and purpose of RN CM assessment to patient and his . Demographics, PCP and Pharmacy verified. Pt and state he is independent, no care needs identified. Plan is to return home today. is able to assist patient. PCP: Dr. Hernandez Specialists: Dr. Emerson Preferred Pharmacy: [facility], but requested physician send today's scripts to [facility] Insurance: [employer] Prescription Benefit: yes LNOK: Rich Owens Living Arrangements: Lives independently with . Transportation: Drives DME: none HHC: none Patient DC goals: home DC PLAN: Home Briseyda AMIN RN AC
--- NOTE | 2019-01-29 09:10 | DS.PCM_ITS ---
Discharge Date and Diagnosis Date of Admission: 01/26/19 Date of Discharge: 01/28/19 - Primary Discharge Diagnosis 1 hematoma of the hands-probably secondary to insertion of IVs in both hands along with the patient's concurrent use of Brilinta and aspirin #2 cellulitis was ruled out #3 coronary artery disease #4 chronic kidney disease stage III #5 chronic anxiety and depression #6 essential hypertension #7 status post cystoscopy, right retrograde pyelogram, right ureteroscopy laser lithotripsy of stone 01/24/2019 - Secondary Discharge Diagnosis Chronic Problems (Last Updated 04/16/18 @ 13:32 by Maty Mendoza) Chronic kidney disease (CKD), stage III (moderate) (Chronic) Obesity (Chronic) Anxiety and depression (Chronic) Nephrolithiasis (Chronic) Atherosclerosis of coronary artery without angina pectoris (Chronic) History of coronary artery stent placement (Chronic 04/13/18) PCI-JOSE ANGEL-ISR Prox LCX w/ 3.0 x 14 mm Resolute Stent 04/13/18 [id number] RCA ? Essential (primary) hypertension (Chronic) Hyperlipidemia (Chronic) NSTEMI (non-ST elevated myocardial infarction) (Chronic 04/13/18) Hospital Course and Treatment Operations: None Procedures: None Summary of Care Provided: The patient is a 68 year old M who was directly admitted to [place] [address] from an outside emergency room after being evaluated there for bilateral hand and forearm redness. Patient had undergone a urologic procedure recently and was also told to resume his Brilinta and aspirin due to a cardiac stent placement that was performed late last year. Patient was admitted for presumed cellulitis of the hands and arms, he was started on IV antibiotics, he was given antipyretics due to itching. I reevaluated the patient after admission and felt that the patient's problem was more likely due to bilateral hematomas in the hands which had caused ecchymosis of the forearms. I had infectious diseases see the patient and they concurred and did not feel the patient needed antibiotics. On 01/28/2019, patient was seen and examined: On examination he appeared in good health and spirits. Vital signs as documented. Skin warm and dry. Neck without JVD. Lungs clear. Heart exam notable for regular rhythm, normal sounds and absence of murmurs, rubs or gallops. Abdomen unremarkable and without evidence of organomegaly, masses, or abdominal aortic enlargement. Ex tremities-there are ecchymotic areas noted over the patient's forearms bilaterally, there is some generalized edema in the patient's hands bilaterally which is not severe.. Neuro: Cranial nerves II through XII are grossly intact, no focal motor deficits were noted, sensation to light touch and pinprick intact. Psych: Patient is alert and oriented x3, he does not appear anxious or depressed On 01/28/2019, patient was seen and examined and felt to be in stable condition for discharge home - Physical Exam Vital Signs Temp Pulse Resp BP Pulse Ox 97.9 F 78 16 112/58 L 96 01/28/19 13:09 01/28/19 13:09 01/28/19 13:09 01/28/19 13:09 01/28/19 13:09 Oxygen Delivery Method Room Air Weight: 102 kg Body Mass Index (BMI) 36.3 Finger Stick Blood Glucose 83 Intake and Output for Last 24 Hours 01/27/19 01/28/19 01/29/19 23:59 23:59 23:59 Intake Total 3017.08 / 3117.08 2815 / 2815 Output Total 1750 / 2200 1050 / 1050 Balance 1267.08 / 917.08 1765 / 1765 Laboratory Tests Past 24 Hrs 01/27/19 05:59 Diff Path Review Reviewed Discharge Activity: Return to Normal Activity Weight Bearing Status: Full weight bearing Home Medications: Medications to take at Discharge Cholecalciferol (Vitamin D3) [Optimal D3] 50,000 unit PO QWEEK 06/17/15 Colchicine 0.6 mg PO DINNER PRN 06/17/15 Ranitidine [Zantac] 150 mg PO BID 06/17/15 ALPRAZolam [Xanax] 0.5 mg PO BID 12/31/15 Lactulose [Chronulac] 20 gm PO DAILY 12/31/15 Aspirin E.C. [Ecotrin] 81 mg PO DAILYCM #30 tablet 04/15/18 Ticagrelor [Brilinta] 90 mg PO BID #60 tablet 04/15/18 Finasteride [Proscar] 5 mg PO QHS 01/07/19 Tamsulosin HCl [Flomax] 0.4 mg PO BID 01/07/19 Lisinopril 2.5 mg PO DAILY 01/26/19 Metoprolol Tartrate 12.5 mg PO BID 01/26/19 O-Mreaza-k-Cysteine 1 cap PO DAILY 01/27/19 Hydrocodone Bitart/Apap 5-325 [Bed[place] 5/325] 1 - 2 tab PO Q6H PRN PRN 7 Days #28 tab 01/28/19 hydrOXYzine pamoate capsule [Vistaril pamoate capsule] 50 mg PO Q6 PRN #40 cap 01/28/19 Following Prescrptions Were Given to Patient: Hydrocodone Bitart/Apap 5-325 [Bedford 5/325] 1 - 2 tab PO Q6H PRN PRN 7 Days #28 tab PRN Reason: Severe Pain (-03/06) Transmission Status: Received by [facility] [id number] hydrOXYzine pamoate capsule [Vistaril pamoate capsule] 50 mg PO Q6 PRN #40 cap PRN Reason: itchiness Transmission Status: Received by [facility] [id number] Primary Care Physician: Herb Middleton MD [Primary Care Provider] - Please follow up with your Primary Care Physician in: 1-2 weeks Disposition: Home Minutes spent on discharge:: 32 Patient Condition:: Stable Medical Necessity - Tobacco Use Smoking Status: Never smoker Tobacco Use: Non-smoker Meaningful Use Info Meaningful Use Diagnoses (Choose all that apply): None applicable Code Visit Inpatient E&M: 47992 Disch Hosp
== END 2019-01-28 14:07 | disposition home or self-care (01) | DRG 812 ==
PROVIDERS: Admitting Provider Family Medicine; Family Provider Family Medicine; PCP Family Medicine; Visit Provider Internal Medicine
DX: T80.89XA Other complications following infusion, transfusion and therapeutic injection, initial encounter (principal); E87.2 Acidosis; S60.222A Contusion of left hand, initial encounter; S60.221A Contusion of right hand, initial encounter; N18.3 Chronic kidney disease, stage 3 (moderate); Y84.8 Other medical procedures as the cause of abnormal reaction of the patient, or of later complication, without mention of misadventure at the time of the procedure; I25.10 Atherosclerotic heart disease of native coronary artery without angina pectoris; N40.0 Benign prostatic hyperplasia without lower urinary tract symptoms; K59.09 Other constipation; K21.9 Gastro-esophageal reflux disease without esophagitis; F32.9 Major depressive disorder, single episode, unspecified; F41.9 Anxiety disorder, unspecified; I12.9 Hypertensive chronic kidney disease with stage 1 through stage 4 chronic kidney disease, or unspecified chronic kidney disease; Z79.02 Long term (current) use of antithrombotics/antiplatelets; Z95.5 Presence of coronary angioplasty implant and graft; I25.2 Old myocardial infarction; N20.0 Calculus of kidney; I10 Essential (primary) hypertension; G47.30 Sleep apnea, unspecified; E78.00 Pure hypercholesterolemia, unspecified; Z48.816 Encounter for surgical aftercare following surgery on the genitourinary system; Z86.718 Personal history of other venous thrombosis and embolism; Z87.442 Personal history of urinary calculi; W45.8XXA Other foreign body or object entering through skin, initial encounter; Y92.89 Other specified places as the place of occurrence of the external cause; Y93.9 Activity, unspecified; Y99.9 Unspecified external cause status; Z82.49 Family history of ischemic heart disease and other diseases of the circulatory system; Z90.49 Acquired absence of other specified parts of digestive tract
CPT/HCPCS: 36415; 76000; 80048; 83605; 85025; 97802; 99283; J7030; J7050; J7120; A4216; C1758; C1769; J2405

== ENCOUNTER → 2019-02-06 09:05 | Outpatient (CLI) | payer MEDICARE, SELFPAY ==
[2018-04-15 08:41] VITALS: BMI 34.8
[2019-01-26 23:18] VITALS: BMI 36.3
--- NOTE | 2019-02-06 09:08 | RAD_ITS ---
STUDY: X-RAY - ABDOMEN/PELVIS REASON FOR EXAM: Male, 68 years old. Right side kidney stone. TECHNIQUE: Single AP view of the abdomen / pelvis. COMPARISON: Abdomen, January 15, 2019. FINDINGS: The lung bases are not included. There is an unremarkable bowel gas pattern. Large amount of feces in the ascending and transverse colon. There is no demonstrated free abdominal air. The visualized liver, spleen and kidneys are grossly normal in size and morphology. A right renal calculus seen on the previous study is obscured by overlying colon. No other calcifications are seen. There is a stable high density focus in the left upper quadrant thought to be within the bowel. This is now seen in the transverse colon. Normal soft tissue structures. There are diffuse degenerative changes of the visualized lumbar spine. RAD/Abdomen Single View IMPRESSION: Nonvisualization of the small right renal calculus seen in the previous study. This is thought to be obscured by overlying bowel gas. Electronically Signed: Jamaal Babin DO at 20:48 EDT Tel [phone], Service support ,
== END ==
PROVIDERS: Family Provider Family Medicine; PCP Family Medicine; Referring Provider Urology; Visit Provider Urology
DX: N20.0 Calculus of kidney (principal)
CPT/HCPCS: 74018

== ENCOUNTER → 2020-01-05 10:29 | Outpatient (CLI) | payer MEDICARE, SELFPAY ==
[2018-04-15 08:41] VITALS: BMI 34.8
[2019-01-26 23:18] VITALS: BMI 36.3
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
--- NOTE | 2020-01-05 10:40 | PCM.CR.ITP ---
Diagnosis - General Information Admitting Diagnosis: Z95.5 PTCA W/coronary stent Personal Learning Style:: Audio/Visual, Demonstration, Group, Individual Preference, Written Barriers to Learning: Vision Impairment Stage of change r/t lifestyle modifications:: Contemplation Gave educational material for:: Treating Heart Disease, Emotions & Heart Disease, Stress Management & Relaxation, Sleep Disorders & Heart Disease, How The Heart Works, What it means to have Heart Disease, How Coronary Artery Disease is Diagnosed, Heart Procedures, What Heart Medications Do, Risk Factors & Modifications, Living an Active Life, Nutrition - Education/Goals Cardiac Rehabilitation Goals: 1. Maintain the individual as the primary focus of care. 2. To improve the patient's quality of life. 3. Identification of cardiac risk factors and provide cardiac risk factor management. 4. Enhance the psychosocial status of the patient. 5. Reconditioning enough to allow the patient to resume customary activities. 6. Control symptoms of cardiac disease Personal Goals: Initial Assessment: Improve energy level, Improve knowledge of cardiac disease, Improve muscle strength and endurance, Improve diet and eating habits (eat healthier), 30-day Re-assessment: Participate in home exercise program Scale for measuring improvement of personal goals: Enter appropriate number in Comments. 2 = Unchanged. 3 = Slightly Better. 4 = Moderate Improvement. 5 = Met my Goal - Diagnosis & Disease Process 30 day Reassessments:: Not Met 30 day Reassessments:: Not Met 30 day Reassessments:: Not Met 30 day Reassessments:: Not Met Final Reassessments:: Not Met - Safety Referral to Physical Therapy: No Referral to [facility] Case Management: No Fall Risk Assessed:: Yes Assistive Devices:: None Exercise - Initial Assessment - Visit Date of Eval: 01/05/20 - initial eval Mets: Pre-: >3 METS for 30 minutes by discharge, >5 METS for 30 minutes by discharge, >7 METS for 30 minutes by discharge, Unable to meet goal due to: (see comment below) - Physician Prescribed Exercise Modalities: Treadmill, Rower, Airdyne, NuStep, SciFit Frequency: 3x/week for 12 weeks [36 sessions] Intensity: 60-80% of age predicted maximum heart rate reserve Current METSs:: 2.0 Target Heart Rate:: 98-131 Resting Blood Pressure: 110/72 EKG Type: sinus jesus - Outcomes & Goals Goals:: Verbalizes understanding of THR, RPE & goal METS by session 6, Documents in home exercise log/reports 30 min aerobic 5 day/wk by DC, Demonstrates accurate pulse taking by DC, Other additional outcome/goals: see below - Intervention & Plan Exercise Program Goals: Instruct on personal THR & RPE, Instruct on MET level & personal MET goal, Show patient to take own pulse /validate performance until accurate, Instruct on home exercise, Other additional plan/int - Physical Activity Home Exercise Physical Activity - Home Exercise: Safe Exercise, Warm-up, Self-monitoring, Cool-Down, Home Exercise > 30 min Daily, Sitting Time <3 hours/daily - Outcomes & Goals Outcomes/Goals: Demonstrates correct Warm-up/exercise Cool-Down (S3) if = 2.5 METs, Verbalizes symptoms of exercise intolerance by Session 3 (S3), Demonstrate safe equipment use (S3) & follows exercise prescrition (6), Other: See below - Intervention & Plan Plan/Intervention: Instruct warm-up & cool-down if exercising at > 2 METs, Instruct on symptoms of exercise intolerance & actions to take, Instruct & monitor on saf, Assess intial functional capacity & safety risk, Other See below Nutrition - Initial Assessment - Program Goals Nutrition Program Goals: LDL <100 optimal. 100 - 129 Near optimal. 130 - 159 Borderline High. 160 - 189 High. Total Cholesterol <200 desirable. 200 - 239 Borderline High. >/= 240 High. HDL < 40 Low >/=60 High. Triglycerides <150 desirable. <199 optimal. VlDL 5 - 40. HgbA1C <7%. BMI <25 Patient has diagnosis of Hyperlipidemia (ICD E78)?: Yes - Visit Date of Assessment:: 01/05/20 - initial eval - Cholesterol/Lipids Outcomes/Goals: Pt IDs own risk factors & lifestyle modifications by Session 10, Verbalizes symptoms of angina & response by session 3., Pt independently manages, Other Additional Outcomes/Goals: Intervention/Plan: Advocate for lipid panel cholesterol medication if applicable, Instruct on personal lipid levels & lipid goals/NCEP guidelines, Instruct on cholesterol, Other additional plan/int Referral to dietitian:: No - pt declines - Diabetes (Other Core Measures) Diabetes Type: Not Applicable - Weight Mgt (Other Care) Height: 5 ft 6 in Weight:: 97.069 kg BMI: 34.5 Diagnosis Overweight/Obesity BMI> 30% ICD-10 E66: Yes Outcomes/Goals: Pt sets, maintains & shows weight loss goal & trend during rehab, Other additional outcomes/goals Intervention/Plan: Instruct on ideal BMI & set weight loss goal w/patient, Assist pt to ID & incorporate diet changes for weight loss by S9, Refer to Structured Weight Loss program as appropriate, Encourage goal of using 250-300dcal per session for weight loss, Other additional plan/interventions - Healthy Eating Habits Will attend diet classes:: Yes Outcomes/Goals:: Consume diet rich in vegs,fruits,whole grain/high fiber,fish,lean meat, Limit sat/trans fats,cholesterol & added salts & sugars, Other additional outcome/goals: Intervention/Plan:: Assess current eating habits, Other Additional plan/interventions - Education Gave educational materials for:: Signs & symptoms of hypoglycemia, Signs & symptoms of hyperglycemia, Relate diabetes to coronary artery disease, Healthy eating Medical - Initial Assessment - Visit Date of Eval: 01/05/20 - initial eval - Medication Compliance Preventative Medication(s):: Aspirin, Beta shreya H/O mental health issues: depression, anxiety, or addiction?: Yes Doesn?t believe in the benefits of treatment?: No Believes medications are unnecessary or harmful?: No Has a concern about medication side effects?: No Expresses concern over the cost of medications?: No Outcomes/Goals: Verbalizes medications,desired effect & common side effects @ DC, Pt self-reports following medication regimen, Keeps card in wallet w/medications listed by DC, Other additional outcome/goals: Interventions/plans: Instruct on medication effects & side effects, Review medication list w/patient every two weeks, Instruct importance of taking meds as ordered & assist problem solving, Other additional - Tobacco Use Tobacco Use: Non-smoker Do you use smokeless tobacco?: No - Hypertension Hypertension Diagnosis:: Hypertension ICD-10 I10 Resting Blood Pressure:: 110/72 [place] [employer] Hypertension Guidelines: [place] [employer] Hypertension Guidelines. Normal BP Less than 120/80. Elevated BP 120/80. Hypertension Stage 1: BP 130-139/80-89. Hypertesnion Stage 2: BP 140 or higher/90 or higher. Hypertension Crisis: BP higher than 180/120 Outcomes/Goals: Able to verbalize/achieve optimal blood pressure <130/80, Incorporates diet changes & exercise for blood pressure control by DC, Other additional outcomes/goals Interventions/plan: Instruct on optimal blood pressure, hypertension & medications, Instruct on effects of sodium, alcohol, stress, exercise &hypertension, Other additional plan/interventions - Tobacco Cessation Referral Smoking Cessation Referral:: No Individual Education/Counseling:: No Education Schedule Given:: Yes Psychosocial - Initial Assess - VIsit Date of Eval: 01/05/20 - initial eval History of previous Mental disease:: Yes History of Emotional Disorders: Depression Self-reported stressors: Other - Target Goals Target Goals: Assess presence or absence of depression. Using a valid screening tool, maximizes coping skills. Positive support system - Psychosocial Test Tool Used:: Ean Ruiz QOL Cardiac, PHQ-9 Questionnaire phq-9 Severity: Severity. 1-4 Minimal Depression. 5-9 Mild Depression. 10-14 Moderate Depression. 15-19 Moderately Sever Depression. 20-27 Severe Depression. Rule: - Referral to Behavioral Health PS - Interventions: Yes Referral to Behavioral Health if PHQ-9 score >9:, Yes Referral to Physician if PHQ-9 if score is 5-9:, Yes Attend Stress Management Classes, No Referral to [facility] - Outcomes/Goals: See list Psychosocial Outcomes/Goals:: ID's personal stressors & 2 strategies to manage stress by discharge, Other Additional outcome/goals: - Intervention/Plan: See List Interventions/Plan:: Assess stressors,coping strategies & signs of derpression on admission, Instruct/assist pt to develop coping & personal stress Mgt strategies, Refer to Behavioral Health if appropriate, Refer to Physician if appropriate, Instruct patient to recognize signs & symptoms of depression, Instruct patient to recog, Other additional plan/intervention Patient Health Questionnaire Initial Assessment 1. Little interest or pleasure in doing things: Nearly every day 2. Feeling down, depressed, or hopeless: More than half the days 3. Trouble falling or staying asleep, or sleeping too much: More than half the days 4. Feeling tired or having little energy: More than half the days 5. Poor appetite or overeating: More than half the days 6. Feeling bad about yourself -- or that you are a failure or have let yourself or your family down: More than half the days 7. Trouble concentrating on things, such as reading the newspaper or watching television: Several days 8. Moving or speaking so slowly that other people could have noticed. Or the opposite - being so fidgety or restless that you have been moving around a lot more than usual: Not at all 9. Thoughts that you would be better off , or of hurting yourself in some way: Not at all How difficult have these problems made it for you to do your work, take care of things at home, or get along with other people?: Somewhat difficult Total Score: 14 JUSTIN-Q SV Test - Statements CAD is a disease of the arteries in the heart: True Examples of risk factors for heart disease: True Angina is chest pain or discomfort: False The benefits of resistance training include: True Eating more meat and dairy products: False Anti-platelet medications such as aspirin are important: True The only effective way to manage stress: True An exercise warm-up slowly increases heart rate: False Prepared, processed foods usually have high sodium: True Depression is common after a heart attack: False The statin medications lower cholesterol: False To control blood pressure, lower the amount of sodium: True If someone gets chest discomfort during walking: False Transfats are partially hydrogenated vegetable oils: True Sleep apnea that is not treated increases the risk: False To control cholesterol, one should become a vegetarian: False Someone knows if he/she is exercising at the right level: True Diabetes cannot be prevented with exercise & health eating: True Stress is a large risk for heart attack: True A diet that can help lower blood pressure is rich in: True - Total Score Total Correct Responses: 13 Self-Efficacy Initial Assessment We would like to know how confident you are in doing certain activities. Please select your confidence level for:: Select your confidence level for the following using the scale 1-10 where 1 is not at all confident and 10 is totally confident. Your score is the average of all 6 responses. Fatigue: How confident are you that you can keep the fatigue caused by your disease from interfering with the things you want to do? Select Number: 5 Physical Discomfort or Pain: How confident are you that you can keep the physical discomfort or pain of your disease from interfering with the things you want to do? Select Number: 6 Emotional Distress: How confident are you that you can keep the emotional distress caused by your disease from interfering with the things you want to do? Select Number: 3 Other Symptoms or Health Problems: How confident are you that you can keep other symptoms or health problems from interfering with the things you want to do? Select Number: 5 Different Tasks and Activities: How confident are you that you can do the different tasks and activities needed to manage your health condition so as to reduce your need to see a doctor? Select Number: 7 Medication: How confident are you that you can do things other than just taking medication to reduce how much your illness affects your everyday life? Select Number: 8 Total Score:: 5 Nutrition Survey - Nutrition Survey Instructions Scoring Instructions: Scoring is as follows: Yes = 1 points. No = 0 point. Patient score that is >/=12 is considered to be at potential nutritional risk and could benefit from a referral to a registered dietitian. - Nutrition Survey Initial Have you lost >10 lbs over the past 2 months without trying?: No Are you following a special diet at home for diabetes, low fat, or low salt?: No Are you interested in meeting with a dietitian for help understanding your diet?: No Do you eat less than 3 meals a day?: No Do you eat fatty meats (cruz, sausage, ribs, etc), fried foods, desserts, large amounts of salad dressings, margarine, butter, or cheese most days?: Yes Do you have food allergies? [Enter types in comment field]: No Do you eat in restaurants more than 3 times a week?: No Do you season food with salt, seasoning salt, or garlic salt?: Yes Do you used canned, boxed, frozen meals, or soups, seasoning packets?: No Total Score:: 2
[2020-01-05 11:37] VITALS: BP 110/72; BMI 34.5
[2020-01-05 11:40] VITALS: BP 110/72; PULSE 64; O2SAT 99; BMI 34.5
== END ==
PROVIDERS: PCP Family Medicine
DX: I25.10 Atherosclerotic heart disease of native coronary artery without angina pectoris (principal); Z95.5 Presence of coronary angioplasty implant and graft; Z79.899 Other long term (current) drug therapy; Z79.82 Long term (current) use of aspirin; Z79.01 Long term (current) use of anticoagulants; Z87.820 Personal history of traumatic brain injury; F32.9 Major depressive disorder, single episode, unspecified; F03.90 Unspecified dementia, unspecified severity, without behavioral disturbance, psychotic disturbance, mood disturbance, and anxiety; M10.9 Gout, unspecified; E66.9 Obesity, unspecified; F10.20 Alcohol dependence, uncomplicated; I25.2 Old myocardial infarction; E78.5 Hyperlipidemia, unspecified; I10 Essential (primary) hypertension

== ENCOUNTER 2020-01-07 11:52 | Outpatient (RCR) | payer MEDICARE, SELFPAY ==
[2020-01-05 11:37] VITALS: BMI 34.5
[2020-01-05 11:40] VITALS: BMI 34.5
== END 2020-01-26 23:59 ==
LOC: CR 11:52
PROVIDERS: PCP Family Medicine
DX: I25.10 Atherosclerotic heart disease of native coronary artery without angina pectoris (principal); Z98.61 Coronary angioplasty status
CPT/HCPCS: 93798

== ENCOUNTER 2020-04-19 10:53 | Emergency (ER) | payer MEDICARE, SELFPAY ==
[2020-01-05 11:37] VITALS: BMI 34.5
[2020-01-05 11:40] VITALS: BMI 34.5
[2020-04-19 10:54] VITALS: BP 103/66; PULSE 64; RESP 16; TEMP 35.8; O2SAT 100; BMI 33.0
--- NOTE | 2020-04-19 11:36 | EKG12_ITS ---
Test Reason : Blood Pressure : / mmHG Vent. Rate : 053 BPM Atrial Rate : 053 BPM P-R Int : 140 ms QRS Dur : 096 ms QT Int : 428 ms P-R-T Axes : 032 -34 049 degrees QTc Int : 401 ms Sinus bradycardia Left axis deviation Abnormal ECG Confirmed by RAGINI NAZARIO, JAMES ([id number]), design editor TOSNI CASTELAN ([id number]) on 04/21/2020 10:41:50 AM Referred By: AUTUMN Confirmed By:JAMES EID MD
--- NOTE | 2020-04-19 11:37 | RAD_ITS ---
STUDY: X-RAY CHEST REASON FOR EXAM: Male, 69 years old. Cough and headache for 3 days. TECHNIQUE: Single frontal view of the chest. COMPARISON: 04/13/2018 FINDINGS: Stable mild hyperexpansion. There is no demonstrated pleural abnormality. Mild cardiomegaly unchanged. Normal mediastinum and radhames. Normal visualized pulmonary arteries. Normal visualized aortic arch and descending thoracic aorta. Normal visualized thoracic spine. Normal visualized ribs, clavicles, and shoulders. There is no demonstrated abnormality of the visualized soft tissue structures of the upper abdomen. RAD/Chest 1 View IMPRESSION: Stable chest with no acute superimposed finding. Electronically Signed: Josue Garcia MD at 12:58 EST , Service support ,
--- NOTE | 2020-04-19 11:37 | RAD_ITS ---
STUDY: X-RAY - LUMBAR SPINE REASON FOR EXAM: Male, 69 years old. Injury. Low back pain. TECHNIQUE: 2 view(s) of the lumbar spine were obtained. COMPARISON: None FINDINGS: Generalized osteopenia. Normal lumbar lordosis. There is no substantial scoliosis. There is a normal alignment of the vertebrae. Diffuse facet sclerosis. Intervertebral disc space narrowing at multiple levels most marked at T12-L1 and L3-4. Vascular calcification. RAD/Lumbar Spine 2 or 3 Views IMPRESSION: Osteopenia with mild lumbar spondylosis. No acute finding. Electronically Signed: Josue Garcia MD at 12:55 EST , Service support ,
[2020-04-19 11:58] LABS: Absolute Lymphocyte Count 1.66 X10^3/uL (0.83-4.51); Absolute Neutrophil Count 4.2 X10^3/uL (2.0-7.7); Basophil# 0.03 X10^3/uL; Basophil% 0.4 % (0-1); Eosinophil# 0.16 X10^3/uL; Eosinophils% 2.3 % (0-5); Hematocrit 40.6 % (40-54); Hemoglobin 13.7 g/dL (13.0-16.5); Lymphocyte # 1.66 X10^3/ul (4.0); Lymphocyte % 24.3 % (19-41); Mean Corp Hgb Conc 33.7 g/dL (32-36); Mean Corpuscular Hgb 32.6 pg (27.0-32.0); Mean Corpuscular Volume 96.7 fL (80-94); Mean Platelet Vol. 9.8 fl (6.2-12.0); Monocyte% 10.2 % (0-10); NRBC Flagged by Analyzer 0 % (0-5); Neutrophil # 4.22 X10^3/uL (2.7-7.7); Neutrophil % 61.8 % (47-70); Platelet Count 156 K/mm3 (150-450); RBC Distribution Width CV 12.7 % (11.6-14.6); RBC Distribution Width SD 44.7 fl (35.1-43.9); White Blood Count 6.8 K/mm3 (4.4-11.0)
[2020-04-19] MEDS: Morphine 4 MG/ML Syringe IV (12:03)
[2020-04-19] MEDS: Ondansetron 4 MG/2 ML Vial IV (12:03)
[2020-04-19 12:18] LABS: Anion Gap 4 (5-15); BUN 22 mg/dL (7-18); BUN/Creat Ratio 17.5 RATIO (10-20); Chloride 114 mmol/L (98-107); Creatinine, Serum 1.26 mg/dL (0.70-1.30); EST Glomerular Filtration Rate 60 mL/min (>60); Est Glom Filt Rate - Afr Amer 73 mL/min (>60); Estimated Creatinine Clearance 49.93 ml/min; Glucose 109 mg/dL (74-106); Potassium 4.4 mmol/L (3.5-5.1); Sodium Level 144 mmol/L (136-145)
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
[2020-04-19 13:29] VITALS: BP 115/63; BP 130/72; BP 134/73; PULSE 48; PULSE 53; PULSE 57
--- NOTE | 2020-04-19 13:35 | ED.VISSUMM ---
- ER Visit Summary Date of Service: 04/19/20 Chief Complaint: Lightheaded with standing History of Present Illness: The patient is a [address] Blaine Villanueva and Dr. Salcedo. He reports that he has been lightheaded when he stands up for the past 3 days. States that this morning he was very lightheaded and fell against a doorway. No loss of consciousness. He is not on anticoagulants. She has lower back pain instead of 10 severity that he describes as aching. No neck, shoulder, wrist, or hip pain. Patient reports that he is on 2.5 mg of lisinopril a day, 12.5 mg of metoprolol twice daily, and 0.4 mg of Flomax twice daily. Physical Examination: Vitals: Stable. Afebrile. General: Well-nourished and well-developed. Head: Normocephalic atraumatic. Neck: Supple, no lymphadenopathy. No JVD. Nontender. Cardiovascular: Regular rate and rhythm. No murmurs. Respiratory: No respiratory distress. Clear to auscultation bilaterally. Abdominal: Soft, nontender, nondistended, normal bowel sounds. No guarding, rebound, or peritoneal signs. Back: Moderate diffuse tenderness palpation of the lumbar spine paraspinous muscles or lumbar region bilaterally. Extremities: Nontender, no edema. Skin: Normal color, no rash. Neurologic: Alert and oriented ?3. Cranial nerves II through XII are intact. Normal strength and sensation. Psych: Normal affect. Test Results: EKG sinus bradycardia at 53. The only change from December 2018 is his rate. At that time he was 70. Chem-7 shows a chloride of 114, glucose of 109, BUN 22. CBC shows a immature granulocytes 1.0%. Clinical Impression(s) from Imaging Studies Chest X-Ray 04/19/20 11:37 IMPRESSION: Stable chest with no acute superimposed finding. Electronically Signed: Josue Garcia MD at 12:58 EST , Service support , Lumbar Spine X-Ray 04/19/20 11:37 IMPRESSION: Osteopenia with mild lumbar spondylosis. No acute finding. Electronically Signed: Josue Garcia MD at 12:55 EST , Service support , Emergency Department Course and Treatment: Patient was treated with morphine and Zofran for his pain. He had negative orthostatic vital signs. However, his heart rate remained in the 50s. Treatment Plan: I discussed the patient that his lightheadedness is likely due to his blood pressure being low and his heart rate being low. He is instructed to cut his metoprolol in half so he is taking 6.25 mg twice daily and see if this helps the problem. If it is not then he may need to decrease his Flomax. Instructed to follow-up his primary care physician in 1 day to let them know how he is doing. Return to the emergency department for any worsening symptoms. Disposition: To home in improved and stable condition. Impression: 1. Bradycardia on metoprolol. 2. Low back pain. 3. Near syncope. This note was generated with [employer] dictation software. It may contain incorrect words, spelling, and punctuation that were not noted in review of the chart prior to signing ED Disposition - Plan for ED Patient: Disposition: Home or Assisted Living Diagnosis: Acute urinary retention Instructions: ED Bradycardia, ED Near-Fainting Uncertain Cause Prescriptions: Docusate Sodium [Colace] 100 mg PO DAILY #20 cap Prescription Printed Oxycodone HCl/Acetaminophen [Percocet 5/325] 1 tab PO Q6H PRN PRN 3 Days #12 tab PRN Reason: Pain Prescription Printed Referrals: Herb Middleton MD [Primary Care Provider] - 1-2 Days if not improving Additional Instructions: Decrease her metoprolol to 6.25 mg twice a day. Call your doctor tomorrow and let him know how your heart rate and blood pressure is doing.
[2020-04-19 14:19] VITALS: BP 121/74; PULSE 55; RESP 18; O2SAT 98
--- NOTE | 2020-04-19 14:21 | ED.RN ---
THIS NURSE REVIEWED D/C INSTRUCTIONS WITH PT. PT VERBALIZED UNDERSTANDING OF INSTRUCTIONS. IV D/C. IV CATHETER INTACT. PT TOLERATED WELL. THIS NURSE CONTACTED THE PT TO PICK HIM UP. THOUGHT SHE COULD BE HERE IN 10 MINUTES. PT NOTIFIED OF THE SAME. PT ASKED TO SIT IN THE ROOM WHILE WE WAIT FOR HIS RIDE D/T PENDING COVID TEST.
== END 2020-04-19 14:23 | disposition home or self-care (01) ==
LOC: ED 12:45
PROVIDERS: Emergency Provider Emergency Medicine; PCP Family Medicine
DX: R33.9 Retention of urine, unspecified (principal); I25.10 Atherosclerotic heart disease of native coronary artery without angina pectoris; I12.9 Hypertensive chronic kidney disease with stage 1 through stage 4 chronic kidney disease, or unspecified chronic kidney disease; N18.9 Chronic kidney disease, unspecified; Z79.82 Long term (current) use of aspirin
CPT/HCPCS: 71045; 72100; 80048; 85025; 87635; 93005; 96374; 96375; 99285; A4216; J2405; U0003

== ENCOUNTER 2020-08-10 15:22 | Inpatient (IN) | payer MEDICARE, SELFPAY ==
[2020-01-05 11:37] VITALS: BMI 34.5
[2020-08-10 15:23] VITALS: BP 134/62; PULSE 87; RESP 16; TEMP 35.6; O2SAT 99; BMI 30.6
[2020-08-10 15:25] VITALS: BP 134/62; PULSE 85; RESP 16; TEMP 35.6; O2SAT 98
--- NOTE | 2020-08-10 15:37 | CT_ITS ---
STUDY: CT ABDOMEN AND PELVIS WITH CONTRAST REASON FOR EXAM: Male, 70 years old. luq pain RADIATION DOSAGE (If Supplied By Facility): CTDIvol = ( 15.27 ) mGy, DLP = ( 928.77 ) mGycm TECHNIQUE: Transaxial images were obtained from the dome of the diaphragm to the symphysis pubis without oral contrast. IV 100mL Isovue-370 was administered. Sagittal and coronal images were reconstructed. Individualized dose optimization techniques were used for this CT. COMPARISON: 12/31/2018 FINDINGS: The visualized lung bases are unremarkable. The visualized portions of the heart are within normal limits. Normal liver. Normal gallbladder and extrahepatic biliary system. Normal spleen. Normal pancreas. Normal bilateral adrenal glands. Normal right kidney. Normal left kidney. Normal visualized stomach. Normal small intestine. Normal colon. There is non-visualization of the appendix. Normal abdominal aorta. Normal inferior vena cava. Normal retroperitoneum. Normal urinary bladder. Normal abdominal wall. Normal osseous structures. CT/Abdomen/Pelvis W IV Cont ONLY IMPRESSION: Normal enhanced CT of the abdomen and pelvis. Electronically Signed: Iam Rangel MD at 17:18 EDT Tel , Service support ,
--- NOTE | 2020-08-10 15:37 | EKG12_ITS ---
Test Reason : ABD PAIN Blood Pressure : / mmHG Vent. Rate : 088 BPM Atrial Rate : 088 BPM P-R Int : 130 ms QRS Dur : 108 ms QT Int : 370 ms P-R-T Axes : 069 -20 059 degrees QTc Int : 447 ms Sinus rhythm with frequent Premature ventricular complexes Otherwise normal ECG Confirmed by RAGINI NAZARIO, JAMES ([id number]), market editor VANESSA DUQUE ([id number]) on 08/12/2020 12:58:50 PM Referred By: CATHLEEN Confirmed By:JAMES EID MD
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
[2020-08-10] MEDS: Metoclopramide 10 MG/2 ML Vial IV (16:04)
[2020-08-10] MEDS: Ondansetron 4 MG/2 ML Vial IV (16:04)
[2020-08-10 16:13] LABS: Color, Urine Yellow (Yellow); Glucose, Dipstick Normal (Normal); Ketone-Dipstick Negative (Negative); Leukocyte Esterase-Dipstick Negative /ul (Negative); Nitrite-Dipstick Negative (Negative); Occult Blood-Urine 10 /ul (Negative); Protein-Dipstick Negative (Negative); Urine Bilirubin Dipstick Negative (Negative); Urine Clarity Clear (Clear); Urine Urobilinogen Normal (Normal)
[2020-08-10 16:41] LABS: Absolute Lymphocyte Count 1.99 X10^3/uL (0.83-4.51); Basophil# 0.04 X10^3/uL; Basophil% 0.4 % (0-1); Eosinophil# 0.12 X10^3/uL; Eosinophils% 1.3 % (0-5); Hematocrit 28.9 % (40-54); Hemoglobin 9.9 g/dL (13.0-16.5); Lymphocyte # 1.99 X10^3/ul (4.0); Lymphocyte % 22.1 % (19-41); Mean Corp Hgb Conc 34.3 g/dL (32-36); Mean Corpuscular Hgb 32.9 pg (27.0-32.0); Mean Platelet Vol. 10.6 fl (6.2-12.0); Monocyte# 0.76 X10^3/uL; Monocyte% 8.4 % (0-10); NRBC Flagged by Analyzer 0 % (0-5); Neutrophil # 6.03 X10^3/uL (2.7-7.7); Neutrophil % 66.9 % (47-70); Platelet Count 192 K/mm3 (150-450); RBC Distribution Width CV 12.7 % (11.6-14.6); RBC Distribution Width SD 43.1 fl (35.1-43.9); Red Blood Count 3.01 M/mm3 (4.6-6.2)
[2020-08-10 16:43] LABS: ALB/GLOB Ratio 1.2 RATIO (0.9-2.4); AST(SGOT) 32 U/L (15-37); Alanine Aminotransfer ALT/SGPT 28 U/L (16-61); Albumin, Serum 3.5 g/dL (3.2-5.0); Alkaline Phosphatase 46 U/L (45-117); Anion Gap 5 (5-15); BUN 36 mg/dL (7-18); BUN/Creat Ratio 28.1 RATIO (10-20); Calcium,Total 8.8 mg/dL (8.5-10.1); Chloride 110 mmol/L (98-107); Creatinine, Serum 1.28 mg/dL (0.70-1.30); EST Glomerular Filtration Rate 59 mL/min (>60); Est Glom Filt Rate - Afr Amer 71 mL/min (>60); Estimated Creatinine Clearance 48.46 ml/min; Glucose 91 mg/dL (74-106); Lactic Acid 0.5 mmol/L (0.4-1.9); Lipase 251 U/L (73-393); Potassium 4.5 mmol/L (3.5-5.1); Protein, Total 6.5 g/dL (6.4-8.2); Sodium Level 139 mmol/L (136-145)
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
[2020-08-10 18:15] VITALS: BP 129/77; PULSE 79; RESP 16; TEMP 36.2; O2SAT 98
[2020-08-10 18:45] VITALS: BP 165/69; PULSE 82; RESP 18; TEMP 36.3; O2SAT 100
[2020-08-10 18:46] VITALS: BMI 30.2
[2020-08-10 18:52] VITALS: BMI 30.3
[2020-08-10 19:00] VITALS: PULSE 74
[2020-08-10 19:30] LABS: Hematocrit 27.7 % (40-54); Hemoglobin 9.4 g/dL (13.0-16.5)
[2020-08-10] MEDS: 0.9% Saline Lock 10 ML Syringe IV (20:22)
[2020-08-10 21:32] VITALS: BP 117/61; PULSE 80; RESP 16; TEMP 36.7; O2SAT 98
[2020-08-10] MEDS: ALPRAZolam 0.5 MG Tablet PO (21:34)
[2020-08-10] MEDS: MELATONIN 3 MG TABLET PO (21:34)
[2020-08-10] MEDS: Finasteride 5 MG Tablet PO (21:35)
[2020-08-11] VITALS (16 sets, daily range): BP systolic 113–140; BP diastolic 56–78; PULSE 69–101; RESP 15–18; TEMP 36.2–37.1; O2SAT 96–100; BMI 29.9
[2020-08-11 05:18] LABS: Absolute Lymphocyte Count 2.19 X10^3/uL (0.83-4.51); Absolute Neutrophil Count 4.6 X10^3/uL (2.0-7.7); Basophil# 0.03 X10^3/uL; Basophil% 0.4 % (0-1); Eosinophils% 2.6 % (0-5); Hematocrit 26.4 % (40-54); Hemoglobin 8.8 g/dL (13.0-16.5); Lymphocyte # 2.19 X10^3/ul (4.0); Lymphocyte % 28.1 % (19-41); Mean Corp Hgb Conc 33.3 g/dL (32-36); Mean Corpuscular Hgb 32.8 pg (27.0-32.0); Mean Corpuscular Volume 98.5 fL (80-94); Mean Platelet Vol. 9.9 fl (6.2-12.0); Monocyte# 0.72 X10^3/uL; Monocyte% 9.2 % (0-10); NRBC Flagged by Analyzer 0 % (0-5); Neutrophil % 58.9 % (47-70); Platelet Count 153 K/mm3 (150-450); RBC Distribution Width CV 12.8 % (11.6-14.6); RBC Distribution Width SD 45.6 fl (35.1-43.9); Red Blood Count 2.68 M/mm3 (4.6-6.2); White Blood Count 7.8 K/mm3 (4.4-11.0)
[2020-08-11 05:32] LABS: ALB/GLOB Ratio 1.3 RATIO (0.9-2.4); AST(SGOT) 13 U/L (15-37); Alanine Aminotransfer ALT/SGPT 20 U/L (16-61); Albumin, Serum 3.1 g/dL (3.2-5.0); Alkaline Phosphatase 33 U/L (45-117); Anion Gap 4 (5-15); BUN 25 mg/dL (7-18); BUN/Creat Ratio 20.8 RATIO (10-20); Calcium,Total 8.2 mg/dL (8.5-10.1); Chloride 111 mmol/L (98-107); EST Glomerular Filtration Rate 64 mL/min (>60); Est Glom Filt Rate - Afr Amer 77 mL/min (>60); Estimated Creatinine Clearance 51.69 ml/min; Globulin 2.4 g/dL (2.2-4.2); Glucose 102 mg/dL (74-106); Potassium 4.4 mmol/L (3.5-5.1); Protein, Total 5.5 g/dL (6.4-8.2); Sodium Level 141 mmol/L (136-145)
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
--- NOTE | 2020-08-11 09:51 | PN_ITS ---
<Zonia Dumont - Last Filed: 08/11/20 09:51> Patient Problems: Active and Suspected Problems (Last Updated 04/16/18 @ 13:32 by Maty Mendoza) GI bleed (Acute) Reason for Visit: Patient seen and examined. Patient reports he continues to have a dull epigastric pain. Patient will undergo EGD with Dr. Mckeon today. Patient reports he has had these in the past for similar issues. Patient remains n.p.o. with continuous infusion Protonix. Patient denies lightheadedness, nausea, vomiting, diarrhea. Vitals/I&O's: Vital Signs Temp Pulse Resp BP Pulse Ox 97.8 F 70 16 119/68 100 08/11/20 07:28 08/11/20 08:13 08/11/20 08:13 08/11/20 07:28 08/11/20 08:13 Oxygen Delivery Method Room Air Weight: 185 lb 6.54 oz Body Mass Index (BMI) 29.9 Finger Stick Blood Glucose 83 Intake and Output for Last 24 Hours 08/09/20 08/10/20 08/11/20 23:59 23:59 23:59 Intake Total 35 / 235 300 / 300 Output Total 580 / 580 Balance 35 / -15 -280 / -280 General: Alert, Oriented x3, Cooperative HEENT: Atraumatic, PERRLA, EOMI, Normocephalic Neck: Supple, No JVD, Negative Carotid Bruits Lungs: Clear to auscultation, Normal air movement Cardiovascular: Regular rate, Regular Rhythm, Normal S1, Normal S2, No murmurs Abdomen: Bowel Sounds Present, Soft, Tender - epigastric Extremities: No edema, Capillary Refill Less than 3 Seconds Skin: No rashes, No breakdown Musculoskeletal: No Tenderness to Palpation of Joints or Extremities Neurological: Cranial nerves II-XII grossly intact Psych/Mental Status: Normal Affect, Appropriate Microbiology Past 72 Hours 08/11/20 06:30 Mucosa - Nose SARS-CoV-2 Antigen (Rapid) - Final Laboratory Results 08/10/20 15:50: WBC 9.0, RBC 3.01 L, Hgb 9.9 L, Hct 28.9 L, MCV 96.0 H, MCH 32.9 H, MCHC 34.3, RDW Std Deviation 43.1, RDW Coeff of Leeann 12.7, Plt Count 192, MPV 10.6, Immature Gran % (Auto) 0.900, Neut % (Auto) 66.9, Lymph % (Auto) 22.1, [place] % (Auto) 8.4, Eos % (Auto) 1.3, Baso % (Auto) 0.4, Absolute Neuts (auto) 6.0, Absolute Lymphs (auto) 1.99, Nucleated RBC % 0 08/10/20 15:50: Sodium 139, Potassium 4.5, Chloride 110 H, Carbon Dioxide 24.0, Anion Gap 5, BUN 36 H, Creatinine 1.28, Estim Creat Clear Calc 48.46, Est GFR (MDRD) Af Amer 71, Est GFR (MDRD) Non-Af 59 L, BUN/Creatinine Ratio 28.1 H, Glucose 91, Calcium 8.8, Total Bilirubin 0.40, AST 32, ALT 28, Alkaline Phosphatase 46, Troponin I < 0.015, Total Protein 6.5, Albumin 3.5, Globulin 3.0, Albumin/Globulin Ratio 1.2, Lipase 251 08/10/20 15:50: Lactic Acid 0.5 08/10/20 15:50: Urine Color Yellow, Urine Clarity Clear, Urine pH 5.0, Ur Specific [place] 1.020, Urine Protein Negative, Urine Glucose (UA) Normal, Urine Ketones Negative, Urine Occult Blood 10 H, Urine Nitrite Negative, Urine Bilirubin Negative, Urine Urobilinogen Normal, Ur Leukocyte Esterase Negative 08/10/20 15:55: Blood Type O POSITIVE, Antibody Screen NEGATIVE 08/10/20 19:17: Hgb 9.4 L, Hct 27.7 L 08/11/20 04:56: WBC 7.8, RBC 2.68 L, Hgb 8.8 L, Hct 26.4 L, MCV 98.5 H, MCH 32.8 H, MCHC 33.3, RDW Std Deviation 45.6 H, RDW Coeff of Leeann 12.8, Plt Count 153, MPV 9.9, Immature Gran % (Auto) 0.800, Neut % (Auto) 58.9, Lymph % (Auto) 28.1, [place] % (Auto) 9.2, Eos % (Auto) 2.6, Baso % (Auto) 0.4, Absolute Neuts (auto) 4.6, Absolute Lymphs (auto) 2.19, Nucleated RBC % 0 08/11/20 04:56: Sodium 141, Potassium 4.4, Chloride 111 H, Carbon Dioxide 26.0, Anion Gap 4 L, BUN 25 H, Creatinine 1.20, Estim Creat Clear Calc 51.69, Est GFR (MDRD) Af Amer 77, Est GFR (MDRD) Non-Af 64, BUN/Creatinine Ratio 20.8 H, Glucose 102, Calcium 8.2 L, Total Bilirubin 0.40, AST 13 L, ALT 20, Alkaline Phosphatase 33 L, Total Protein 5.5 L, Albumin 3.1 L, Globulin 2.4, Albumin/Globulin Ratio 1.3 Current Medications Acetaminophen (Acetaminophen 325 Mg Tablet) 650 mg PO Q6H PRN PRN PRN Reason: Pain Score 1-10/Temp > 100.7 F Al Hydroxide/Mg Hydroxide (Mag Hydrox/Al Hydrox/Simeth 30 Ml Udc) 30 ml PO Q6H PRN PRN PRN Reason: Gastric Burning Alprazolam (Alprazolam 0.5 Mg Tablet) 0.5 mg PO BID COUNTS INCLUDE 234 BEDS AT THE [facility] Last Admin: 08/10/20 21:34 Dose: 0.5 mg Documented by: Finasteride (Finasteride 5 Mg Tablet) 5 mg PO QHS COUNTS INCLUDE 234 BEDS AT THE [facility] Last Admin: 08/10/20 21:35 Dose: 5 mg Documented by: Sodium Chloride () 250 mls @ 15 mls/hr IV .[id number] PRN PRN Reason: Saline Flush Sodium Chloride () 250 mls @ 15 mls/hr IV .[id number] PRN PRN Reason: Additional IVPB Infusion Pantoprazole Sodium 80 mg/ (Sodium Chloride) 100 mls @ 10 mls/hr CONT INF Q10H COUNTS INCLUDE 234 BEDS AT THE [facility] Last Admin: 08/11/20 04:47 Dose: 10 mls/hr Documented by: Melatonin (Melatonin 3 Mg Tablet) 3 mg PO QHS PRN PRN Reason: INSOMNIA Last Admin: 08/10/20 21:34 Dose: 3 mg Documented by: Ondansetron HCl (Ondansetron 4 Mg/2 Ml Vial) 4 mg IV Q8H PRN PRN PRN Reason: NAUSEA/VOMITING Psyllium Hydrophilic Mucilloid (Psyllium 1 Packet) 1 packet PO DAILY PRN PRN PRN Reason: Constipation Sodium Chloride (0.9% Saline Lock 10 Ml Syringe) 10 - 40 ml IV UD PRN PRN Reason: SALINE FLUSH Last Admin: 08/10/20 20:22 Dose: 10 ml Documented by: Tamsulosin HCl (Tamsulosin Hcl 0.4 Mg Capsule) 0.4 mg PO DAILY@0830 COUNTS INCLUDE 234 BEDS AT THE [facility] STROKE Vital Signs/Narrative: Vital Signs Temp Pulse Resp BP Pulse Ox 08/11/20 08:13 70 16 100 08/11/20 07:28 97.8 F 82 16 119/68 100 08/11/20 07:05 74 Medical Necessity - Tobacco Use Smoking Status: Never smoker Tobacco Use: Non-smoker Assessment/Plan All Active Problems (Last Updated 04/16/18 @ 13:32 by Maty Mendoza) Hematoma (Acute) Cellulitis (Acute) Lactic acidosis (Acute) GI bleed (Acute) Altered mental status (Resolved) 1. Acute GI bleed-continue PPI drip pending EGD today with Dr. Mckeon. Educated patient regarding use of NSAIDs as possible cause for gastritis. 2. Acute blood loss anemia secondary to #1-globin 8.8 this morning, down from 9.4, will check CBC in the morning. 3. CAD status post stents, last stent was in November 2019.-Continue to hold aspirin and Plavix. Telemetry shows normal sinus rhythm. 4. BPH-continue Flomax and Proscar 5. Hyperlipidemia-not on statin DVT prophylaxis?SCDs This patient was seen by Zonia Dumont NP-Barbie under the supervision of Dr. Max. <Stevan Max F - Last Filed: 08/11/20 11:04> Vitals/I&O's: Vital Signs Temp Pulse Resp BP Pulse Ox 97.8 F 70 16 119/68 100 08/11/20 07:28 08/11/20 08:13 08/11/20 08:13 08/11/20 07:28 08/11/20 08:13 Oxygen Delivery Method Room Air Weight: 185 lb 6.54 oz Body Mass Index (BMI) 29.9 Finger Stick Blood Glucose 83 Intake and Output for Last 24 Hours 08/09/20 08/10/20 08/11/20 23:59 23:59 23:59 Intake Total 35 / 235 300 / 300 Output Total 580 / 580 Balance 35 / -15 -280 / -280 Microbiology Past 72 Hours 08/11/20 06:30 Mucosa - Nose SARS-CoV-2 Antigen (Rapid) - Final Laboratory Results 08/10/20 15:50: WBC 9.0, RBC 3.01 L, Hgb 9.9 L, Hct 28.9 L, MCV 96.0 H, MCH 32.9 H, MCHC 34.3, RDW Std Deviation 43.1, RDW Coeff of Leeann 12.7, Plt Count 192, MPV 10.6, Immature Gran % (Auto) 0.900, Neut % (Auto) 66.9, Lymph % (Auto) 22.1, [place] % (Auto) 8.4, Eos % (Auto) 1.3, Baso % (Auto) 0.4, Absolute Neuts (auto) 6.0, Absolute Lymphs (auto) 1.99, Nucleated RBC % 0 08/10/20 15:50: Sodium 139, Potassium 4.5, Chloride 110 H, Carbon Dioxide 24.0, Anion Gap 5, BUN 36 H, Creatinine 1.28, Estim Creat Clear Calc 48.46, Est GFR (MDRD) Af Amer 71, Est GFR (MDRD) Non-Af 59 L, BUN/Creatinine Ratio 28.1 H, Glucose 91, Calcium 8.8, Total Bilirubin 0.40, AST 32, ALT 28, Alkaline Phosphatase 46, Troponin I < 0.015, Total Protein 6.5, Albumin 3.5, Globulin 3.0, Albumin/Globulin Ratio 1.2, Lipase 251 08/10/20 15:50: Lactic Acid 0.5 08/10/20 15:50: Urine Color Yellow, Urine Clarity Clear, Urine pH 5.0, Ur Specific [place] 1.020, Urine Protein Negative, Urine Glucose (UA) Normal, Urine Ketones Negative, Urine Occult Blood 10 H, Urine Nitrite Negative, Urine Bilirubin Negative, Urine Urobilinogen Normal, Ur Leukocyte Esterase Negative 08/10/20 15:55: Blood Type O POSITIVE, Antibody Screen NEGATIVE 08/10/20 19:17: Hgb 9.4 L, Hct 27.7 L 08/11/20 04:56: WBC 7.8, RBC 2.68 L, Hgb 8.8 L, Hct 26.4 L, MCV 98.5 H, MCH 32.8 H, MCHC 33.3, RDW Std Deviation 45.6 H, RDW Coeff of Leeann 12.8, Plt Count 153, MPV 9.9, Immature Gran % (Auto) 0.800, Neut % (Auto) 58.9, Lymph % (Auto) 28.1, [place] % (Auto) 9.2, Eos % (Auto) 2.6, Baso % (Auto) 0.4, Absolute Neuts (auto) 4.6, Absolute Lymphs (auto) 2.19, Nucleated RBC % 0 08/11/20 04:56: Sodium 141, Potassium 4.4, Chloride 111 H, Carbon Dioxide 26.0, Anion Gap 4 L, BUN 25 H, Creatinine 1.20, Estim Creat Clear Calc 51.69, Est GFR (MDRD) Af Amer 77, Est GFR (MDRD) Non-Af 64, BUN/Creatinine Ratio 20.8 H, Glucose 102, Calcium 8.2 L, Total Bilirubin 0.40, AST 13 L, ALT 20, Alkaline Phosphatase 33 L, Total Protein 5.5 L, Albumin 3.1 L, Globulin 2.4, Albumin/Globulin Ratio 1.3 Current Medications Acetaminophen (Acetaminophen 325 Mg Tablet) 650 mg PO Q6H PRN PRN PRN Reason: Pain Score 1-10/Temp > 100.7 F Al Hydroxide/Mg Hydroxide (Mag Hydrox/Al Hydrox/Simeth 30 Ml Udc) 30 ml PO Q6H PRN PRN PRN Reason: Gastric Burning Alprazolam (Alprazolam 0.5 Mg Tablet) 0.5 mg PO BID COUNTS INCLUDE 234 BEDS AT THE [facility] Last Admin: 08/10/20 21:34 Dose: 0.5 mg Documented by: Finasteride (Finasteride 5 Mg Tablet) 5 mg PO QHS COUNTS INCLUDE 234 BEDS AT THE [facility] Last Admin: 08/10/20 21:35 Dose: 5 mg Documented by: Sodium Chloride () 250 mls @ 15 mls/hr IV .[id number] PRN PRN Reason: Saline Flush Sodium Chloride () 250 mls @ 15 mls/hr IV .[id number] PRN PRN Reason: Additional IVPB Infusion Pantoprazole Sodium 80 mg/ (Sodium Chloride) 100 mls @ 10 mls/hr CONT INF Q10H COUNTS INCLUDE 234 BEDS AT THE [facility] Last Admin: 08/11/20 04:47 Dose: 10 mls/hr Documented by: Lactated Ringer's () 1,000 mls @ 100 mls/hr IV .Q10H COUNTS INCLUDE 234 BEDS AT THE [facility] Last Admin: 08/11/20 10:38 Dose: 100 mls/hr Documented by: Melatonin (Melatonin 3 Mg Tablet) 3 mg PO QHS PRN PRN Reason: INSOMNIA Last Admin: 08/10/20 21:34 Dose: 3 mg Documented by: Ondansetron HCl (Ondansetron 4 Mg/2 Ml Vial) 4 mg IV Q8H PRN PRN PRN Reason: NAUSEA/VOMITING Psyllium Hydrophilic Mucilloid (Psyllium 1 Packet) 1 packet PO DAILY PRN PRN PRN Reason: Constipation Sodium Chloride (0.9% Saline Lock 10 Ml Syringe) 10 - 40 ml IV UD PRN PRN Reason: SALINE FLUSH Last Admin: 08/10/20 20:22 Dose: 10 ml Documented by: Tamsulosin HCl (Tamsulosin Hcl 0.4 Mg Capsule) 0.4 mg PO DAILY@0830 COUNTS INCLUDE 234 BEDS AT THE [facility] Vital Signs/Narrative: Vital Signs Temp Pulse Resp BP Pulse Ox 08/11/20 08:13 70 16 100 08/11/20 07:28 97.8 F 82 16 119/68 100 08/11/20 07:05 74 Addendum: Dr. Max I personally examined the patient and reviewed the chart. I agree with the above. 70-year-old male presented to the hospital with acute blood loss anemia likely secondary to an upper GI bleed. He has had some dizziness and lightheadedness with this blood loss. He has been having some dark tarry stools indicative of an upper GI bleed source. He is on aspirin and Plavix for stent placed in 2018, it is okay the need for these to be stopped temporarily. We will plan for an EGD this morning and will repeat an H&H this afternoon. Given his cardiac history, his transfusion threshold is below 8. He does have some epigastric abdominal pain and states that he has been using Advil every day for the last week, I discussed with him the this could potentially be the cause for his bleeding issues currently. Inpatient E&M: [id number] [facility] L2
[2020-08-11] MEDS: Lactated Ringers 1,000 ML 100 ML IV (10:38)
[2020-08-11] MEDS: Epinephrine (1 mg/ml) 1 MG/ML VIAL (11:20)
--- NOTE | 2020-08-11 11:32 | OP.CCLET_ITS ---
08/11/2020 Herb Middleton [address] [place] [address] Re : Upper GI endoscopy procedure for Panfilo Owens Dear Dr. Middleton This procedure was performed on Tuesday, August 11, 2020. My impressions and recommendations are as follows: Impressions : - Blood in the second portion of the duodenum. Injected. Clips were placed. - Normal stomach. - Normal esophagus. - No specimens collected. Recommendations : - Return patient to hospital [facility] for ongoing care. - Clear liquid diet. - Continue present medications. My findings are described in the full procedure note, which is enclosed. If I can be of further assistance, please feel free to contact me at Doctor phone number(s): , Work: . Sincerely, Domingo Mckeon MD 08/11/2020 11:31:42 AM This report has been signed electronically.
--- NOTE | 2020-08-11 11:32 | OP.EGD_ITS ---
Patient Name: Panfilo Owens Procedure Date: 08/11/2020 10:51 AM Date of : 1950 Age: 70 Procedure: Upper GI endoscopy Indications: Melena Providers: Domingo Mckeon MD Medicines: Monitored Anesthesia Care Patient Profile: This is a 70 year old male. Refer to note in patient chart for documentation of history and physical. Complications: No immediate complications. Procedure: Pre-Anesthesia Assessment: - Prior to the procedure, a History and Physical was performed, and patient medications and allergies were reviewed. The patient's tolerance of previous anesthesia was also reviewed. The risks and benefits of the procedure and the sedation options and risks were discussed with the patient. All questions were answered, and informed consent was obtained. Prior Anticoagulants: The patient has taken Plavix (clopidogrel), last dose was 1 day prior to procedure. After reviewing the risks and benefits, the patient was deemed in satisfactory condition to undergo the procedure. After obtaining informed consent, the endoscope was passed under direct vision. Throughout the procedure, the patient's blood pressure, pulse, and oxygen saturations were monitored continuously. The Endoscope was introduced through the mouth, and advanced to the third part of duodenum. The upper GI endoscopy was accomplished without difficulty. The patient tolerated the procedure well. Scope In: 11:00:49 AM Scope Out: 11:13:37 AM Total Procedure Duration Time 0 hours 12 minutes 48 seconds Findings: Red blood was found in the second portion of the duodenum. Area was successfully injected with 5 mL of a 1:10,000 solution of epinephrine for hemostasis. To stop active bleeding, two hemostatic clips were successfully placed. There was no bleeding at the end of the procedure. The stomach was normal. The esophagus was normal. Impression: - Blood in the second portion of the duodenum. Injected. Clips were placed. - Normal stomach. - Normal esophagus. - No specimens collected. Recommendation: - Return patient to hospital [facility] for ongoing care. - Clear liquid diet. - Continue present medications. Procedure Code(s): --- Professional --- 68101, Esophagogastroduodenoscopy, flexible, transoral; with control of bleeding, any method Diagnosis Code(s): --- Professional --- K92.2, Gastrointestinal hemorrhage, unspecified K92.1, Melena (includes Hematochezia) CPT copyright 2017 [employer] [place] [employer]. All rights reserved. The codes documented in this report are preliminary and upon medical record coder review may be revised to meet current compliance requirements. Domingo Mckeon MD 08/11/2020 11:31:42 AM This report has been signed electronically. Number of Addenda: 0 Note Initiated On: 08/11/2020 10:51 AM
--- NOTE | 2020-08-11 11:38 | CASEMGMT ---
Patient has a Healthcare Power of Financial Reporting Specialist on file at [facility]. His Rich is his Healthcare Power of Financial Reporting Specialist. He does not have a Healthcare Living Will on file at [facility]. Velvet DAVIS
[2020-08-11 12:13] LABS: Magnesium 2.1 mg/dL (1.6-2.6)
[2020-08-11] MEDS: Tamsulosin HCl 0.4 MG Capsule PO (12:37)
--- NOTE | 2020-08-11 12:45 | CASEMGMT ---
RICHARD MUÑOZ assessment: Face to Face with pt for initial transition planning/care coordination assessment. RN TONI introduced self and role at [facility], pt voices understanding and consents to assessment. Pt is sitting up in bed with spouse at bedside on RA. Pt is A/O x4 and answers all questions appropriately at this time. Care providers, pharmacy, and demographics verified/updated. Admitting dx: GIB PCP: Emi Specialists: Barbara, cardio; Idania, uro, S. Shannan, ortho [facility]erred [facility]acy: [facility] Insurance: [facility] Presciption Benefit: yes LW/HPOA: Pt states he does not have a LW but has a POA, which is his . It is on [facility]. LNOK: Rich Living Arrangements: Pt lives in a mobile home with 4 steps to enter with handrail. Pt states I with ADL's. No concerns at home. Transportation: Pt drives self and denies concerns with transportation. DME/HHC: Pt states he has a walker, crutches and cane at home, but does not use. He has a Bipap and uses [employer]. Pt has not had previous HHC. He has stayed at [facility], [facility] and [facility]. Pt is retired and states no concerns with going home at time of dc. Pt states no further concerns/needs. CM to follow any further dc planning/needs. Advised pt to ask CM if any further question/concerns/needs arise, voices understanding. Pt goal: Home Plan: Home with family support
--- NOTE | 2020-08-11 12:45 | CASEMGMT ---
RICHARD MUÑOZ assessment: Face to Face with pt for initial transition planning/care coordination assessment. RN TONI introduced self and role at [facility], pt voices understanding and consents to assessment. Pt is sitting up in bed with spouse at bedside on RA. Pt is A/O x4 and answers all questions appropriately at this time. Care providers, pharmacy, and demographics verified/updated. Admitting dx: GIB PCP: Emi Specialists: Barbara, cardio; Idania, uro, S. Shannan, ortho Preferred Pharmacy: [facility] Insurance: [facility] Presciption Benefit: yes LW/HPOA: Pt states he has a LW and his POA is his . It is on file at [facility]. LNOK: Rich Living Arrangements: Pt lives in a mobile home with 4 steps to enter with handrail. Pt states I with ADL's. No concerns at home. Transportation: Pt drives self and denies concerns with transportation. DME/HHC: Pt states he has a walker, crutches and cane at home, but does not use. He has a Bipap and uses [employer]. Pt has not had previous HHC. He has stayed at [facility], [facility] and [facility]. Pt is retired and states no concerns with going home at time of dc. Pt states no further concerns/needs. CM to follow any further dc planning/needs. Advised pt to ask CM if any further question/concerns/needs arise, voices understanding. Pt goal: Home Plan: Home with family support
--- NOTE | 2020-08-11 12:50 | EKG12_ITS ---
Test Reason : CP Blood Pressure : / mmHG Vent. Rate : 072 BPM Atrial Rate : 072 BPM P-R Int : 124 ms QRS Dur : 110 ms QT Int : 402 ms P-R-T Axes : 045 -11 042 degrees QTc Int : 440 ms Normal sinus rhythm Normal ECG When compared with ECG of 10-AUG-2020 15:50, MANUAL COMPARISON REQUIRED, DATA IS UNCONFIRMED Confirmed by RAGINI NAZARIO, JAMES ([id number]), editor department VANESSA DUQUE ([id number]) on 08/13/2020 9:22:20 AM Referred By: NORMA Confirmed By:JAMES EID MD
--- NOTE | 2020-08-11 12:53 | NURSING ---
1247- Pt called out c/o sharp chest/abdominal pain. This RN into room observed pt sitting in bed holding epigastric area. Pt stated that pain was sharp and stabbing but is starting to go away. EKG ordered and RT called to obtain. 1255- Pt now resting quietly in bed stating pain is gone and think it was just gas.
[2020-08-11 13:17] LABS: Hematocrit 27.4 % (40-54); Hemoglobin 9.2 g/dL (13.0-16.5)
[2020-08-11] MEDS: Finasteride 5 MG Tablet PO (21:17)
[2020-08-11] MEDS: MELATONIN 3 MG TABLET PO (21:17)
[2020-08-11] MEDS: ALPRAZolam 0.5 MG Tablet PO (21:17)
[2020-08-12 02:59] VITALS: PULSE 80
[2020-08-12 03:15] VITALS: BP 117/52; PULSE 85; RESP 16; TEMP 36.7; O2SAT 98
[2020-08-12] MEDS: Acetaminophen 325 MG Tablet 650 MG PO (06:49)
[2020-08-12 06:54] VITALS: PULSE 81
--- NOTE | 2020-08-12 07:29 | PCM.PN.SRG ---
Patient Problems: Active and Suspected Problems (Last Updated 04/16/18 @ 13:32 by Maty Mendoza) GI bleed (Acute) Subjective: The patient reports no abdominal pain this morning. He has no nausea or vomiting - Physical Exam Vitals/I&O's: Vital Signs Temp Pulse Resp BP Pulse Ox 98.0 F 81 16 117/52 L 98 08/12/20 03:15 08/12/20 06:54 08/12/20 03:15 08/12/20 03:15 08/12/20 03:15 Oxygen Delivery Method Room Air Weight: 182 lb 1.629 oz Body Mass Index (BMI) 29.9 Finger Stick Blood Glucose 83 Intake and Output for Last 24 Hours 08/10/20 08/11/20 08/12/20 23:59 23:59 23:59 Intake Total 35 / 235 1720 / 1720 91.83 / 91.83 Output Total 2004 300 / 300 Balance 35 / -15 -285 / -285 -208.17 / -208.17 General: Alert, Oriented x3 Lungs: Clear to auscultation, Normal air movement Abdomen: Soft, Non Tender, Non-Distended Microbiology Past 72 Hours 08/11/20 06:30 Mucosa - Nose SARS-CoV-2 Antigen (Rapid) - Final Laboratory Results 08/11/20 04:56: Magnesium 2.1 08/11/20 13:05: Hgb 9.2 L, Hct 27.4 L Current Medications Acetaminophen (Acetaminophen 325 Mg Tablet) 650 mg PO Q6H PRN PRN PRN Reason: Pain Score 1-10/Temp > 100.7 F Last Admin: 08/12/20 06:49 Dose: 650 mg Documented by: Al Hydroxide/Mg Hydroxide (Mag Hydrox/Al Hydrox/Simeth 30 Ml Udc) 30 ml PO Q6H PRN PRN PRN Reason: Gastric Burning Alprazolam (Alprazolam 0.5 Mg Tablet) 0.5 mg PO BID [facility] Last Admin: 08/11/20 21:17 Dose: 0.5 mg Documented by: Finasteride (Finasteride 5 Mg Tablet) 5 mg PO QHS [facility] Last Admin: 08/11/20 21:17 Dose: 5 mg Documented by: Sodium Chloride () 250 mls @ 15 mls/hr IV .[id number] PRN PRN Reason: Saline Flush Sodium Chloride () 250 mls @ 15 mls/hr IV .[id number] PRN PRN Reason: Additional IVPB Infusion Pantoprazole Sodium 80 mg/ (Sodium Chloride) 100 mls @ 10 mls/hr CONT INF Q10H [facility] Last Admin: 08/12/20 00:19 Dose: 10 mls/hr Documented by: Melatonin (Melatonin 3 Mg Tablet) 3 mg PO QHS PRN PRN Reason: INSOMNIA Last Admin: 08/11/20 21:17 Dose: 3 mg Documented by: Ondansetron HCl (Ondansetron 4 Mg/2 Ml Vial) 4 mg IV Q8H PRN PRN PRN Reason: NAUSEA/VOMITING Psyllium Hydrophilic Mucilloid (Psyllium 1 Packet) 1 packet PO DAILY PRN PRN PRN Reason: Constipation Sodium Chloride (0.9% Saline Lock 10 Ml Syringe) 10 - 40 ml IV UD PRN PRN Reason: SALINE FLUSH Last Admin: 08/10/20 20:22 Dose: 10 ml Documented by: Tamsulosin HCl (Tamsulosin Hcl 0.4 Mg Capsule) 0.4 mg PO DAILY@0830 [facility] Last Admin: 08/11/20 12:37 Dose: 0.4 mg Documented by: Medical Necessity - Tobacco Use Smoking Status: Never smoker Tobacco Use: Non-smoker Assessment/Plan All Active Problems (Last Updated 04/16/18 @ 13:32 by Maty Mendoza) Hematoma (Acute) Cellulitis (Acute) Lactic acidosis (Acute) GI bleed (Acute) Altered mental status (Resolved) 70-year-old male with upper GI bleed 1. The patient had EGD yesterday and the patient had a small bleed in the duodenum. This was injected and clipped and the patient has not experienced any melanotic stools since then. He has tolerated clears with no issue. I will advance her to a regular diet he may be discharged home. Follow-up as needed. Domingo Mckeon MD Pager: [facility] [address] [place] [address], [address] [place] [address] Office:
[2020-08-12 07:54] LABS: Absolute Lymphocyte Count 1.63 X10^3/uL (0.83-4.51); Absolute Neutrophil Count 5.7 X10^3/uL (2.0-7.7); Basophil# 0.03 X10^3/uL; Basophil% 0.4 % (0-1); Eosinophil# 0.12 X10^3/uL; Eosinophils% 1.4 % (0-5); Hemoglobin 9.6 g/dL (13.0-16.5); Lymphocyte # 1.63 X10^3/ul (4.0); Lymphocyte % 19.3 % (19-41); Mean Corp Hgb Conc 33.1 g/dL (32-36); Mean Corpuscular Hgb 32.8 pg (27.0-32.0); Mean Platelet Vol. 9.1 fl (6.2-12.0); Monocyte# 0.89 X10^3/uL; Monocyte% 10.5 % (0-10); NRBC Flagged by Analyzer 0 % (0-5); Neutrophil % 67.6 % (47-70); Platelet Count 177 K/mm3 (150-450); RBC Distribution Width CV 12.8 % (11.6-14.6); RBC Distribution Width SD 45.5 fl (35.1-43.9); Red Blood Count 2.93 M/mm3 (4.6-6.2); White Blood Count 8.4 K/mm3 (4.4-11.0)
[2020-08-12 08:16] LABS: Anion Gap 5 (5-15); BUN 16 mg/dL (7-18); BUN/Creat Ratio 12.4 RATIO (10-20); Calcium,Total 8.9 mg/dL (8.5-10.1); Chloride 108 mmol/L (98-107); Creatinine, Serum 1.29 mg/dL (0.70-1.30); EST Glomerular Filtration Rate 59 mL/min (>60); Est Glom Filt Rate - Afr Amer 71 mL/min (>60); Estimated Creatinine Clearance 48.08 ml/min; Glucose 115 mg/dL (74-106); Potassium 3.8 mmol/L (3.5-5.1); Sodium Level 139 mmol/L (136-145)
[2020-08-12 08:44] VITALS: BP 149/84; PULSE 85; RESP 18; TEMP 36.2; O2SAT 100
[2020-08-12] MEDS: ALPRAZolam 0.5 MG Tablet PO (08:52)
[2020-08-12] MEDS: Tamsulosin HCl 0.4 MG Capsule PO (08:52)
--- NOTE | 2020-08-12 09:41 | DCINST_ITS ---
- Discharge Diagnoses Current Active Problems: Current Active and Chronic Problems (Last Updated 04/16/18 @ 13:32 by Maty Mendoza) Chronic kidney disease (CKD), stage III (moderate) (Chronic) Anxiety and depression (Chronic) GI bleed (Acute) Essential (primary) hypertension (Chronic) Hyperlipidemia (Chronic) You will use the following diet at home:: No restrictions Your food should be the consistency of: Regular Your liquids should be the consistency of: Regular/Thin Discharge Activity: Return to Normal Activity Allergies/Adverse Reactions: Allergies No Known Allergies Allergy (Verified 08/10/20 15:50) Medications to take at Discharge Cholecalciferol (Vitamin D3) [Optimal D3] 50,000 unit PO WE 06/17/15 ALPRAZolam [Xanax] 0.25 mg PO DAILY PRN PRN 12/31/15 Finasteride [Proscar] 5 mg PO QHS 01/07/19 Tamsulosin HCl [Flomax] 0.4 mg PO DAILY 01/07/19 ALPRAZolam [Xanax] 0.5 mg PO QHS 08/10/20 Aspirin E.C. [Ecotrin] 81 mg PO DAILY@0800 08/10/20 Celecoxib [Celebrex] 200 mg PO DAILY 08/10/20 Clopidogrel Bisulfate [Clopidogrel] 75 mg PO DAILY 08/10/20 Famotidine [Acid-Pep] 20 mg PO BID 08/10/20 Prasugrel Hydrochloride [Effient] 10 mg PO QHS 08/10/20 Pantoprazole Sodium [Protonix] 40 mg PO DAILY #30 tablet 08/12/20 The following prescriptions were given: Pantoprazole Sodium [Protonix] 40 mg PO DAILY #30 tablet Transmission Status: Pending to [id number] Primary Care Physician: Herb Middleton MD [Primary Care Provider] - Please follow up with your Primary Care Physician in: Within the next week Test Results: Test results from this visit will be discussed in further detail at your follow- up appointment, if applicable. Proposed Discharge Date: 08/12/20
--- NOTE | 2020-08-12 11:30 | DS.PCM_ITS ---
<Sebastian Lopes - Last Filed: 08/12/20 11:30> Discharge Date and Diagnosis - Problem List Patient Problems: Active and Suspected Problems (Last Updated 04/16/18 @ 13:32 by Maty Mendoza) GI bleed (Acute) Date of Admission: 08/10/20 Date of Discharge: 08/12/20 - Primary Discharge Diagnosis Acute Problems: Active Problems (Last Updated 04/16/18 @ 13:32 by Maty Mendoza) GI bleed (Acute) - Secondary Discharge Diagnosis Chronic Problems: Chronic Problems (Last Updated 04/16/18 @ 13:32 by Maty Mendoza) Chronic kidney disease (CKD), stage III (moderate) (Chronic) Obesity (Chronic) Anxiety and depression (Chronic) Nephrolithiasis (Chronic) Atherosclerosis of coronary artery without angina pectoris (Chronic) History of coronary artery stent placement (Chronic 04/13/18) PCI-JOSE ANGEL-ISR Prox LCX w/ 3.0 x 14 mm Resolute Stent 04/13/18 [id number] RCA ? Essential (primary) hypertension (Chronic) Hyperlipidemia (Chronic) NSTEMI (non-ST elevated myocardial infarction) (Chronic 04/13/18) Hospital Course and Treatment Imaging Results: Clinical Impression(s) from Imaging Studies Abdomen/Pelvis CT 08/10/20 15:37 IMPRESSION: Normal enhanced CT of the abdomen and pelvis. Electronically Signed: Iam Rangel MD at 17:18 EDT Tel , Service support , Operations: None Procedures: EGD Summary of Care Provided: Patient is a 70 year-old male with a past medical history of CAD status post stents, on aspirin and Plavix who presented to the ED on 08/10/2020 with dark blood in stool. Patient was admitted for Acute UGIB. CT of the abdomen/pelvis unremarkable. EGD revealed blood in the duodenum, bleeding was stopped using hemostatic clips and epinephrine. 1) Acute UGIB Assessment - Hemoglobin 9.6 on 08/12/2020, continuing upward trend - V/S stable - Hemostais achieved via hemostatic clips and epinephrine injection during EGD Plan - Prescribed Protonix 40mg PO Daily - Follow up with primary care provider within the next two weeks 2) Acute blood loss anemia Assessment - Hemoglobin 9.6 on 08/12/2020, continuing upward trend Plan - Follow up with primary care provider within the next two weeks 3) CAD s/p stent Assessment - Last stent in November 2019 - Telemetry monitoring show NSR Plan - Continue Asprin and Plavix regimen at discharge - Follow up with primary care provider within the next two weeks 4) BPH Assessment - Managed outpatient Plan - Continue on Flomax and Proscar - Follow up with primary care provider within the next two weeks Patient seen by Sebastian Lopes PA-C, under the supervision of Dr. Max. Patient Problems: Active and Suspected Problems (Last Updated 04/16/18 @ 13:32 by Maty Mendoza) GI bleed (Acute) Subjective: 70 year-old male comfortably resting in bed, alert and oriented x3. Patient denies abdominal pain or blood in stool. Objective: Microbiology Past 72 Hours 08/11/20 06:30 SARS-CoV-2 Antigen (Rapid) - Final Mucosa - Nose Laboratory Tests Past 24 Hrs 08/11/20 08/11/20 08/12/20 04:56 13:05 07:44 WBC 8.4 RBC 2.93 L Hgb 9.2 L 9.6 L Hct 27.4 L 29.0 L MCV 99.0 H MCH 32.8 H MCHC 33.1 RDW Std Deviation 45.5 H RDW Coeff of Leeann 12.8 Plt Count 177 MPV 9.1 Immature Gran % (Auto) 0.800 Neut % (Auto) 67.6 Lymph % (Auto) 19.3 [place] % (Auto) 10.5 H Eos % (Auto) 1.4 Baso % (Auto) 0.4 Absolute Neuts (auto) 5.7 Absolute Lymphs (auto) 1.63 Nucleated RBC % 0 Sodium Potassium Chloride Carbon Dioxide Anion Gap BUN Creatinine Estim Creat Clear Calc Est GFR (MDRD) Af Amer Est GFR (MDRD) Non-Af BUN/Creatinine Ratio Glucose Calcium Magnesium 2.1 08/12/20 07:44 WBC RBC Hgb Hct MCV MCH MCHC RDW Std Deviation RDW Coeff of Leeann Plt Count MPV Immature Gran % (Auto) Neut % (Auto) Lymph % (Auto) [place] % (Auto) Eos % (Auto) Baso % (Auto) Absolute Neuts (auto) Absolute Lymphs (auto) Nucleated RBC % Sodium 139 Potassium 3.8 Chloride 108 H Carbon Dioxide 26.0 Anion Gap 5 BUN 16 Creatinine 1.29 Estim Creat Clear Calc 48.08 Est GFR (MDRD) Af Amer 71 Est GFR (MDRD) Non-Af 59 L BUN/Creatinine Ratio 12.4 Glucose 115 H Calcium 8.9 Magnesium - Physical Exam Vitals/I&O's: Vital Signs Temp Pulse Resp BP Pulse Ox 97.1 F L 85 18 149/84 H 100 08/12/20 08:44 08/12/20 08:44 08/12/20 08:44 08/12/20 08:44 08/12/20 08:44 Oxygen Delivery Method Room Air Weight: 182 lb 1.629 oz Body Mass Index (BMI) 29.9 Finger Stick Blood Glucose 83 Intake and Output for Last 24 Hours 08/10/20 08/11/20 08/12/20 23:59 23:59 23:59 Intake Total 35 / 235 1720 / 1720 191.83 / 191.83 Output Total 2004 300 / 300 Balance 35 / -15 -285 / -285 -108.17 / -108.17 General: Alert, Oriented x3, Cooperative HEENT: Atraumatic, PERRLA, EOMI, Normocephalic Neck: Supple, No JVD, Negative Carotid Bruits Lungs: Clear to auscultation Cardiovascular: Regular rate, No murmurs Abdomen: Bowel Sounds Present, Soft, Non Tender Extremities: No edema, Capillary Refill Less than 3 Seconds Skin: No rashes, No breakdown Musculoskeletal: No Tenderness to Palpation of Joints or Extremities Neurological: Cranial nerves II-XII grossly intact Psych/Mental Status: Normal Affect, Appropriate Microbiology Past 72 Hours 08/11/20 06:30 Mucosa - Nose SARS-CoV-2 Antigen (Rapid) - Final Laboratory Results 08/11/20 04:56: Magnesium 2.1 08/11/20 13:05: Hgb 9.2 L, Hct 27.4 L 08/12/20 07:44: WBC 8.4, RBC 2.93 L, Hgb 9.6 L, Hct 29.0 L, MCV 99.0 H, MCH 32.8 H, MCHC 33.1, RDW Std Deviation 45.5 H, RDW Coeff of Leeann 12.8, Plt Count 177, MPV 9.1, Immature Gran % (Auto) 0.800, Neut % (Auto) 67.6, Lymph % (Auto) 19.3, [place] % (Auto) 10.5 H, Eos % (Auto) 1.4, Baso % (Auto) 0.4, Absolute Neuts (auto) 5.7, Absolute Lymphs (auto) 1.63, Nucleated RBC % 0 08/12/20 07:44: Sodium 139, Potassium 3.8, Chloride 108 H, Carbon Dioxide 26.0, Anion Gap 5, BUN 16, Creatinine 1.29, Estim Creat Clear Calc 48.08, Est GFR (MDRD) Af Amer 71, Est GFR (MDRD) Non-Af 59 L, BUN/Creatinine Ratio 12.4, Glucose 115 H, Calcium 8.9 Discharge Activity: Return to Normal Activity Home Medications: Medications to take at Discharge Cholecalciferol (Vitamin D3) [Optimal D3] 50,000 unit PO WE 06/17/15 ALPRAZolam [Xanax] 0.25 mg PO DAILY PRN PRN 12/31/15 Finasteride [Proscar] 5 mg PO QHS 01/07/19 Tamsulosin HCl [Flomax] 0.4 mg PO DAILY 01/07/19 ALPRAZolam [Xanax] 0.5 mg PO QHS 08/10/20 Aspirin E.C. [Ecotrin] 81 mg PO DAILY@0800 08/10/20 Celecoxib [Celebrex] 200 mg PO DAILY 08/10/20 Clopidogrel Bisulfate [Clopidogrel] 75 mg PO DAILY 08/10/20 Famotidine [Acid-Pep] 20 mg PO BID 08/10/20 Prasugrel Hydrochloride [Effient] 10 mg PO QHS 08/10/20 Pantoprazole Sodium [Protonix] 40 mg PO DAILY #30 tablet 08/12/20 Following Prescriptions Were Given to Patient: Pantoprazole Sodium [Protonix] 40 mg PO DAILY #30 tablet [id number] Primary Care Physician: Herb Middleton MD [Primary Care Provider] - Please follow up with your Primary Care Physician in: Within the next week Please Follow Up With: Herb Middleton MD Medical Necessity - Tobacco Use Smoking Status: Never smoker Tobacco Use: Non-smoker Meaningful Use Info Meaningful Use Diagnoses (Choose all that apply): None applicable <Stevan Max - Last Filed: 08/12/20 16:36> Discharge Date and Diagnosis - Primary Discharge Diagnosis Acute Problems: Active Problems (Last Updated 04/16/18 @ 13:32 by Maty Mendoza) GI bleed (Acute) - Secondary Discharge Diagnosis Chronic Problems: Chronic Problems (Last Updated 04/16/18 @ 13:32 by Maty Mendoza) Chronic kidney disease (CKD), stage III (moderate) (Chronic) Obesity (Chronic) Anxiety and depression (Chronic) Nephrolithiasis (Chronic) Atherosclerosis of coronary artery without angina pectoris (Chronic) History of coronary artery stent placement (Chronic 04/13/18) PCI-JOSE ANGEL-ISR Prox LCX w/ 3.0 x 14 mm Resolute Stent 04/13/18 [id number] RCA ? Essential (primary) hypertension (Chronic) Hyperlipidemia (Chronic) NSTEMI (non-ST elevated myocardial infarction) (Chronic 04/13/18) Hospital Course and Treatment Summary of Care Provided: The patient is a 70 year old M [] - Physical Exam Vitals/I&O's: Vital Signs Temp Pulse Resp BP Pulse Ox 97.1 F L 85 18 149/84 H 100 08/12/20 08:44 08/12/20 08:44 08/12/20 08:44 08/12/20 08:44 08/12/20 08:44 Oxygen Delivery Method Room Air Weight: 182 lb 1.629 oz Body Mass Index (BMI) 29.9 Finger Stick Blood Glucose 83 Intake and Output for Last 24 Hours 08/10/20 08/11/20 08/12/20 23:59 23:59 23:59 Intake Total 35 / 235 1720 / 1720 191.83 / 191.83 Output Total 2004 300 / 300 Balance 35 / -15 -285 / -285 -108.17 / -108.17 Microbiology Past 72 Hours 08/11/20 06:30 Mucosa - Nose SARS-CoV-2 Antigen (Rapid) - Final Laboratory Results 08/12/20 07:44: WBC 8.4, RBC 2.93 L, Hgb 9.6 L, Hct 29.0 L, MCV 99.0 H, MCH 32.8 H, MCHC 33.1, RDW Std Deviation 45.5 H, RDW Coeff of Leeann 12.8, Plt Count 177, MPV 9.1, Immature Gran % (Auto) 0.800, Neut % (Auto) 67.6, Lymph % (Auto) 19.3, [place] % (Auto) 10.5 H, Eos % (Auto) 1.4, Baso % (Auto) 0.4, Absolute Neuts (auto) 5.7, Absolute Lymphs (auto) 1.63, Nucleated RBC % 0 08/12/20 07:44: Sodium 139, Potassium 3.8, Chloride 108 H, Carbon Dioxide 26.0, Anion Gap 5, BUN 16, Creatinine 1.29, Estim Creat Clear Calc 48.08, Est GFR (MDRD) Af Amer 71, Est GFR (MDRD) Non-Af 59 L, BUN/Creatinine Ratio 12.4, Glucose 115 H, Calcium 8.9 Disposition: Home Minutes spent on discharge:: 35 Patient Condition:: Stable Addendum: Dr. Max I personally examined the patient and reviewed the chart. I agree with the above. 70-year-old male presented to the hospital with acute blood loss anemia likely secondary to an upper GI bleed. He has had some dizziness and lightheadedness with this blood loss. He has been having some dark tarry stools indicative of an upper GI bleed source. He is on aspirin and Plavix for stent placed in 2018, it is okay the need for these to be stopped temporarily. We will plan for an EGD this morning and will repeat an H&H this afternoon. Given his cardiac history, his transfusion threshold is below 8. He does have some epigastric abdominal pain and states that he has been using Advil every day for the last week, I discussed with him the this could potentially be the cause for his bleeding issues currently. 08/12/2020: He is feeling much better today, denies any abdominal pain. He is tolerating a clear liquid diet would like to try to advance his diet if able. His hemoglobin went up today to 9.6 but he says that he still had a black tarry stool which is likely left over from his prep. He will need to follow-up with surgery in a few weeks and would recommend continuing his PPI until then. Would try to limit any NSAID use especially since he is already on Celebrex. I discussed with him the plan for discharge today and he expressed understanding of the risks and benefits of discharge. I also did discuss with him to hold his aspirin and Plavix just for a few days after discharge. Inpatient E&M: [id number] Disch Hosp
--- NOTE | 2020-08-13 15:22 | CASEMGMT ---
RN CM DC call DC Date: 08.12.20 DC Disposition: Home DC Diagnosis: GIB Intro role of CM to patient via phone. The patient states he is feeling well, has picked up his prescription, and no questions or concerns. He is aware of his follow up appointment and does not anticipate difficulty with this. No care improvement suggestions except he did not feel the bed was comfortable. Briseyda AMIN RN ACM
== END 2020-08-12 11:10 | disposition home or self-care (01) | DRG 378 ==
LOC: ED 16:26 → PCU 18:32
PROVIDERS: Nurse Practitioner Family; Surgery; Admitting Provider Internal Medicine; Emergency Provider Emergency Medicine; PCP Family Medicine; Visit Provider Family Medicine
PROC: 0DJ08ZZ Inspection of Upper Intestinal Tract, Via Natural or Artificial Opening Endoscopic (ICD-10-PCS; CPT 43235; principal; 2020-08-11 11:40)
DX: K92.2 Gastrointestinal hemorrhage, unspecified (principal); D62 Acute posthemorrhagic anemia; Z95.5 Presence of coronary angioplasty implant and graft; I25.10 Atherosclerotic heart disease of native coronary artery without angina pectoris; N40.0 Benign prostatic hyperplasia without lower urinary tract symptoms; Z79.02 Long term (current) use of antithrombotics/antiplatelets; K21.9 Gastro-esophageal reflux disease without esophagitis; F41.9 Anxiety disorder, unspecified; F32.9 Major depressive disorder, single episode, unspecified; Z66 Do not resuscitate
CPT/HCPCS: 36415; 74177; 80048; 80053; 81002; 83605; 83690; 83735; 84484; 85014; 85018; 85025; 86850; 86900; 86901; 87426; 93005; 97802; 99284; J7030; J7120; Q9967; A4216; J2405; J3490

== ENCOUNTER 2020-11-07 02:51 | Observation (INO) | payer MEDICARE, SELFPAY ==
[2020-01-05 11:37] VITALS: BMI 34.5
[2020-08-11 10:49] VITALS: BMI 29.9
[2020-11-07] VITALS (13 sets, daily range): BP systolic 109–153; BP diastolic 71–85; PULSE 70–89; RESP 14–20; TEMP 36.6–36.9; O2SAT 94–99; BMI 29.3; BMI 27.3
--- NOTE | 2020-11-07 03:05 | RAD_ITS ---
STUDY: X-RAY - RIGHT WRIST REASON FOR EXAM: Male, 70 years old. pain TECHNIQUE: 3 view(s) of the wrist were obtained. COMPARISON: None. FINDINGS: Degenerative changes are present. Soft tissue swelling. No radiopaque foreign body. No acute fracture or dislocation. RAD/Wrist min 3 Views IMPRESSION: There is mild soft tissue swelling. Degenerative changes. There is no acute fracture or dislocation identified. Electronically Signed: Dimitri Hernandez MD at 4:52 EDT Tel , Service support ,
--- NOTE | 2020-11-07 03:05 | EKG12_ITS ---
Test Reason : CP Blood Pressure : / mmHG Vent. Rate : 082 BPM Atrial Rate : 082 BPM P-R Int : 126 ms QRS Dur : 106 ms QT Int : 370 ms P-R-T Axes : 054 -32 041 degrees QTc Int : 432 ms Normal sinus rhythm Left axis deviation Abnormal ECG Confirmed by RAGINI NAZARIO, JAMES ([id number]), editor managing director VANESSA DUQUE ([id number]) on 11/11/2020 9:27:34 AM Referred By: ANGELLA Confirmed By:JAMES EID MD
[2020-11-07] MEDS: Morphine 4 MG/ML Syringe IV ×3 (03:14→08:59)
[2020-11-07] MEDS: Ondansetron 4 MG/2 ML Vial IV (03:14)
--- NOTE | 2020-11-07 03:14 | RAD_ITS ---
STUDY: X-RAY CHEST REASON FOR EXAM: Male, 70 years old. chest pain TECHNIQUE: Single frontal view of the chest. COMPARISON: However 08/15/2019. FINDINGS: Surgical clips LEFT neck base. EKG leads artifacts. Lungs appear slightly hyperinflated. No focal consolidation. There is no demonstrated pleural abnormality. Normal size heart. Normal mediastinum and radhames. Normal visualized pulmonary arteries. Normal visualized aortic arch and descending thoracic aorta. There are diffuse degenerative changes of the visualized thoracic spine. Anchors within the LEFT humeral head. There is no demonstrated abnormality of the visualized soft tissue structures of the upper abdomen. RAD/Chest 1 View (Portable) IMPRESSION: Degenerative changes, as described above. No demonstrated acute cardiopulmonary process. Electronically Signed: Dimitri Hernandez MD at 4:50 EDT Tel , Service support ,
[2020-11-07 03:22] LABS: Absolute Neutrophil Count 11.4 X10^3/uL (2.0-7.7); Basophil# 0.03 X10^3/uL; Basophil% 0.2 % (0-1); Eosinophil# 0.03 X10^3/uL; Eosinophils% 0.2 % (0-5); Hematocrit 37.9 % (40-54); Hemoglobin 12.3 g/dL (13.0-16.5); Lymphocyte % 10.1 % (19-41); Mean Corp Hgb Conc 32.5 g/dL (32-36); Mean Corpuscular Hgb 28.7 pg (27.0-32.0); Mean Corpuscular Volume 88.3 fL (80-94); Mean Platelet Vol. 9.9 fl (6.2-12.0); Monocyte% 12.1 % (0-10); NRBC Flagged by Analyzer 0 % (0-5); Neutrophil # 11.43 X10^3/uL (2.7-7.7); Neutrophil % 76.8 % (47-70); POSITIVE DIFFERENTIAL YES; Platelet Count 212 K/mm3 (150-450); RBC Distribution Width CV 15.5 % (11.6-14.6); Red Blood Count 4.29 M/mm3 (4.6-6.2); White Blood Count 14.9 K/mm3 (4.4-11.0)
--- NOTE | 2020-11-07 03:25 | RAD_ITS ---
STUDY: X-RAY - RIGHT KNEE REASON FOR EXAM: Male, 70 years old. pain TECHNIQUE: 4 view(s) of the knee. COMPARISON: None. FINDINGS: Moderate joint effusion. Degenerative changes including moderate medial compartmental height loss. Vascular calcifications. Chondrocalcinosis. Correlate for metabolic disorders such as CPPD. RAD/Knee 4 or More Views IMPRESSION: There is soft tissue swelling. There is a moderate joint effusion. Degenerative changes. No acute fracture. Electronically Signed: Dimitri Hernandez MD at 4:51 EDT Tel , Service support ,
--- NOTE | 2020-11-07 03:26 | RAD_ITS ---
STUDY: X-RAY - RIGHT FOOT CLINICAL: Male, 70 years old. pain TECHNIQUE: 3 view(s) of the foot. COMPARISON: None. FINDINGS: Degenerative changes. Posterior and plantar calcaneal spurs. Vascular calcifications. Soft tissue swelling. Irregularity of the posterior malleolus. Old lateral malleolus fracture. There is soft tissue swelling and thickening along the medial aspect of the first MTP joint. Some juxta-articular erosions. RAD/Foot min 3 Views IMPRESSION: There is irregularity at the posterior malleolus. No prior studies available for comparison. A nondisplaced fracture is not excluded recommend dedicated ankle radiographs for further evaluation. Old fracture of the lateral malleolus. Soft tissue swelling. There is some juxta articular erosions and degenerative changes of the first MTP joint with overlying soft tissue swelling. This is compatible with patient''s history of gout. Correlate for acute flare. Electronically Signed: Dimitri Hernandez MD at 4:57 EDT Tel , Service support ,
--- NOTE | 2020-11-07 03:37 | EDS_ITS ---
HPI History of Present Illness Chief Complaint: Chest Pain Narrative Narrative: 70-year-old male presenting with chest pain. Patient also complains of right foot and right knee pain secondary to gout. He also states he fell approximately 1 week ago injuring his right wrist. The chest pain has been intermittent and started 1 to 2 days ago. He denies shortness of breath. He has nausea with no vomiting. Denies diaphoresis. Denies radiation of his pain. Denies fever or cough. Prior similar symptoms: Yes Recent Illness/Hospitalization: No PFSH [facility] Medical History Alcoholism Atherosclerosis of coronary artery without angina pectoris Back pain Dementia Depression Essential (primary) hypertension GI hemorrhage Gout Hyperlipidemia NSTEMI (non-ST elevated myocardial infarction) (04/13/18) Obesity Traumatic brain injury Home Medications acetylcysteine (bulk) [J-Pcovuk-Y-Cysteine] ea MISCELLANEOUS 11/07/20 [History Last Taken Unknown] allopurinol 100 mg PO DAILY 11/07/20 [History Last Taken Unknown] alprazolam [Xanax] 0.5 mg PO BID 11/07/20 [History Last Taken Unknown] ascorbic acid (vitamin C) [Vitamin C] 500 mg PO DAILY 11/07/20 [History Last Taken Unknown] aspirin [Baby Aspirin] 81 mg PO DAILY 11/07/20 [History Last Taken Unknown] cholecalciferol (vitamin D3) 125 mcg PO DAILY 11/07/20 [History Last Taken Unknown] colchicine [Colcrys] 0.6 mg PO BID 11/07/20 [History Last Taken Unknown] finasteride 5 mg PO DAILY 11/07/20 [History Last Taken Unknown] iron 11/07/20 [History Last Taken Unknown] lisinopril 2.5 mg PO DAILY 11/07/20 [History Last Taken Unknown] magnesium 250 mg PO DAILY 11/07/20 [History Last Taken Unknown] pantoprazole 40 mg PO DAILY 11/07/20 [History Last Taken Unknown] prasugrel 10 mg PO DAILY 11/07/20 [History Last Taken Unknown] sucralfate 500 mg PO BID 11/07/20 [History Last Taken Unknown] tamsulosin 0.4 mg PO DAILY 11/07/20 [History Last Taken Unknown] Allergy/AdvReac Type Severity Reaction Status Date / Time No Known Allergies Allergy Verified 08/10/20 15:50 Family History Mother CAD (coronary artery disease) Surgical History History of coronary artery stent placement (04/13/18) History of knee surgery History of repair of rotator cuff Hx of cholecystectomy Social History Smoking Status: Never smoker ROS ROS ED Constitutional Constitutional ED: Denies fever(s) Eyes Eyes: Denies change in vision ENT ENT ED: Denies rhinorrhea or sore throat Cardiovascular Cardiovascular: Reports chest pain; Denies palpitations Respiratory/Chest Respiratory/Chest: Denies cough or dyspnea Gastrointestinal Gastrointestinal: Reports nausea; Denies abdominal pain, diarrhea or vomiting Genitourinary Genitourinary ED: Denies dysuria Musculoskeletal Musculoskeletal: Reports other Details: right foot, right knee, and right wrist pain Integumentary Denies rash Neurologic Neurologic: Denies headache(s) Psychiatric Psychiatric: Denies suicidal thoughts EXAM Physical Exam Const Vital Signs: 11/07/20 02:52 11/07/20 02:56 11/07/20 03:15 Temperature 98.5 F Temperature Source Oral Pulse Rate 89 Respiratory Rate 20 H Respiratory Effort Normal Respiratory Pattern Normal Blood Pressure 141/85 H Blood Pressure Mean 103 Pulse Ox 97 Oxygen Delivery Method Room Air Room Air Positive well nourished and well developed General Appearance ED: well developed HEENT Reports normocephalic and head/scalp atraumatic Eyes PERRL and EOMs intact bilaterally Neck supple General: Negative for tenderness Chest Wall inspection of chest normal Resp normal respiratory effort and clear to auscultation bilaterally Cardio regular rate and regular rhythm GI non-tender and non-distended Palpation: soft; Negative for guarding or rebound tenderness present no CVA tenderness Extremity Extremity Narrative: tenderness and erythema right 1st metatarsal. Painful range of motion right knee. Normal pulses. Right wrist diffuse tenderness Neuro oriented x3 Sensorium / Orientation: alert Psych mental status grossly normal MDM MDM MDM Narrative Medical decision making narrative: Patient took aspirin just prior to arrival. He was given morphine, Zofran IV with improvement of his pain. Due to his intermittent chest pain and history of cardiac disease, discussed with hospitalist for observation. Lab Data Attestation: I reviewed the patient's lab results. Labs: Laboratory Results - last 24 hr 11/07/20 11/07/20 03:15 03:15 WBC 14.9 H RBC 4.29 L Hgb 12.3 L Hct 37.9 L MCV 88.3 MCH 28.7 MCHC 32.5 RDW Std Deviation 51.0 H RDW Coeff of Leeann 15.5 H Plt Count 212 MPV 9.9 Immature Gran % (Auto) 0.600 Neut % (Auto) 76.8 H Lymph % (Auto) 10.1 L [place] % (Auto) 12.1 H Eos % (Auto) 0.2 Baso % (Auto) 0.2 Absolute Neuts (auto) 11.4 H Absolute Lymphs (auto) 1.50 Nucleated RBC % [address] Review May foll Sodium 137 Potassium 3.8 Chloride 104 Carbon Dioxide 25.0 Anion Gap 8 BUN 20 H Creatinine 1.17 Estim Creat Clear Calc 54.93 Est GFR (MDRD) Af Amer 79 Est GFR (MDRD) Non-Af 65 BUN/Creatinine Ratio 17.1 Glucose 120 H Calcium 9.8 Troponin I < 0.015 Radiography Chest X-Ray - ED: 1 View, Read by ED Physician, Read by Radiologist and No Acute Disease Diagnostic Testing: Radiology Impression Wrist X-Ray 11/07/20 03:05 IMPRESSION: There is mild soft tissue swelling. Degenerative changes. There is no acute fracture or dislocation identified. Electronically Signed: Dimitri Hernandez MD at 4:52 EDT Tel , Service support , Chest X-Ray 11/07/20 03:14 IMPRESSION: Degenerative changes, as described above. No demonstrated acute cardiopulmonary process. Electronically Signed: Dimitri Hernandez MD at 4:50 EDT Tel , Service support , Knee X-Ray 11/07/20 03:25 IMPRESSION: There is soft tissue swelling. There is a moderate joint effusion. Degenerative changes. No acute fracture. Electronically Signed: Dimitri Hernandez MD at 4:51 EDT Tel , Service support , Foot X-Ray 11/07/20 03:26 IMPRESSION: There is irregularity at the posterior malleolus. No prior studies available for comparison. A nondisplaced fracture is not excluded recommend dedicated ankle radiographs for further evaluation. Old fracture of the lateral malleolus. Soft tissue swelling. There is some juxta articular erosions and degenerative changes of the first MTP joint with overlying soft tissue swelling. This is compatible with patient''s history of gout. Correlate for acute flare. Electronically Signed: Dimitri Hernandez MD at 4:57 EDT Tel , Service support , EKG Initial EKG: Attestation: I personally reviewed and interpreted this EKG as follows: Interpretation: Sinus Rhythm and No Acute Injury Pattern Discharge Plan Triage Chief Complaint: Chest Pain Other Complaint: Lower Extremity Injury Upper Extremity Injury ED Provider: Viktoriya Dunlap Dx/Rx/DC Orders Clinical Impression: Chest pain, Gout attack Primary Care Provider: Herb Middleton Disposition Disposition: Acute Care [facility]
[2020-11-07 04:06] LABS: Differential Indicated SCAN CRITERIA MET
[2020-11-07 04:12] LABS: Anion Gap 8 (5-15); BUN 20 mg/dL (7-18); BUN/Creat Ratio 17.1 RATIO (10-20); Calcium,Total 9.8 mg/dL (8.5-10.1); Chloride 104 mmol/L (98-107); Creatinine, Serum 1.17 mg/dL (0.70-1.30); EST Glomerular Filtration Rate 65 mL/min (>60); Est Glom Filt Rate - Afr Amer 79 mL/min (>60); Estimated Creatinine Clearance 54.93 ml/min; Glucose 120 mg/dL (74-106); Potassium 3.8 mmol/L (3.5-5.1); Sodium Level 137 mmol/L (136-145)
--- NOTE | 2020-11-07 05:03 | HP.PCM.HOS_ITS ---
HPI - General General Date of Admission: 11/07/20 Date of Service: 11/07/20 Chief Complaint: Epigastric pain HPI Narrative SEBASTIEN BARON, is a 70 M with a significant history of gout; and CAD status post multiple stents who presents excruciating intermittent and persistent epigastric pain which started about 3 days prior to presentation. His pain is nonradiating. He describes his pain as aching and pressure. He denies any aggravating ameliorating factors to the pain. Also in the past 3 days patient has had pain and swelling in his right ankle and in his right knee. Further, a week ago he injured his wrist while using yisel. Of note patient was a hospital on 08/10/2020 and discharged on 08/12/2020 for GI bleed. Reportedly he is scheduled for an EGD and colonoscopy on November 22, [address] Sandoval at the [facility]. [facility] Medical History Alcoholism Anemia Anxiety Atherosclerosis of coronary artery without angina pectoris Back pain BiPAP (biphasic positive airway pressure) dependence Chronic pain Coronary artery disease Dementia Depression Essential (primary) hypertension GI hemorrhage Gout History of stress test Hyperlipidemia Hypertension Myocardial infarct Non-smoker NSTEMI (non-ST elevated myocardial infarction) (04/13/18) Obesity Pancreatitis Pulmonary embolism Rheumatoid arthritis Sleep apnea Traumatic brain injury Home Medications acetylcysteine (bulk) [K-Smxyuy-H-Cysteine] ea MISCELLANEOUS 11/07/20 [History Last Taken Unknown] allopurinol 100 mg PO DAILY 11/07/20 [History Last Taken Unknown] alprazolam [Xanax] 0.5 mg PO BID 11/07/20 [History Last Taken Unknown] ascorbic acid (vitamin C) [Vitamin C] 500 mg PO DAILY 11/07/20 [History Last Taken Unknown] aspirin [Baby Aspirin] 81 mg PO DAILY 11/07/20 [History Last Taken Unknown] cholecalciferol (vitamin D3) 125 mcg PO DAILY 11/07/20 [History Last Taken Unknown] colchicine [Colcrys] 0.6 mg PO BID 11/07/20 [History Last Taken Unknown] finasteride 5 mg PO DAILY 11/07/20 [History Last Taken Unknown] iron 11/07/20 [History Last Taken Unknown] lisinopril 2.5 mg PO DAILY 11/07/20 [History Last Taken Unknown] magnesium 250 mg PO DAILY 11/07/20 [History Last Taken Unknown] pantoprazole 40 mg PO DAILY 11/07/20 [History Last Taken Unknown] prasugrel 10 mg PO DAILY 11/07/20 [History Last Taken Unknown] sucralfate 500 mg PO BID 11/07/20 [History Last Taken Unknown] tamsulosin 0.4 mg PO DAILY 11/07/20 [History Last Taken Unknown] Allergy/AdvReac Type Severity Reaction Status Date / Time No Known Allergies Allergy Verified 08/10/20 15:50 Family History Mother CAD (coronary artery disease) Surgical History History of coronary artery stent placement (04/13/18) History of knee surgery History of repair of rotator cuff Hx of cholecystectomy Social History Smoking Status: Never smoker ROS ROS Narrative 12 point review of system is negative except as stated in HPI. Vital Signs Vital Signs Vital Signs: 11/07/20 02:52 11/07/20 02:56 11/07/20 03:15 Temperature 98.5 F Temperature Source Oral Pulse Rate 89 Respiratory Rate 20 H Respiratory Effort Normal Respiratory Pattern Normal Blood Pressure 141/85 H Blood Pressure Mean 103 Pulse Ox 97 Oxygen Delivery Method Room Air Room Air Weight Weight: 85 kg Body Mass Index (BMI) 29.3 Physical Exam Narrative Alert and oriented x3 Nontraumatic; normocephalic Lung clear to auscultate Heart sounds S1-S2. No murmur, gallop or rubs. Abdomen bowel sounds present soft, nontender nondistended Extremity: Swelling of right first metatarsophalangeal joint; erythematous; tender. Swelling and tenderness of right knee. Swelling and tenderness of right wrist. Left knee with no swelling. Left first metatarsophalangeal joint with no swelling. Left wrist with no swelling. Results Lab / Micro Data Result Diagrams: 11/07/20 03:15 11/07/20 03:15 Labs: Laboratory Results - last 24 hr 11/07/20 11/07/20 03:15 03:15 WBC 14.9 H RBC 4.29 L Hgb 12.3 L Hct 37.9 L MCV 88.3 MCH 28.7 MCHC 32.5 RDW Std Deviation 51.0 H RDW Coeff of Leeann 15.5 H Plt Count 212 MPV 9.9 Immature Gran % (Auto) 0.600 Neut % (Auto) 76.8 H Lymph % (Auto) 10.1 L [place] % (Auto) 12.1 H Eos % (Auto) 0.2 Baso % (Auto) 0.2 Absolute Neuts (auto) 11.4 H Absolute Lymphs (auto) 1.50 Nucleated RBC % 0 [address] Review May foll Sodium 137 Potassium 3.8 Chloride 104 Carbon Dioxide 25.0 Anion Gap 8 BUN 20 H Creatinine 1.17 Estim Creat Clear Calc 54.93 Est GFR (MDRD) Af Amer 79 Est GFR (MDRD) Non-Af 65 BUN/Creatinine Ratio 17.1 Glucose 120 H Calcium 9.8 Troponin I < 0.015 Radiology Impression Wrist X-Ray 11/07/20 03:05 IMPRESSION: There is mild soft tissue swelling. Degenerative changes. There is no acute fracture or dislocation identified. Electronically Signed: Dimitri Hernandez MD at 4:52 EDT Tel , Service support , Chest X-Ray 11/07/20 03:14 IMPRESSION: Degenerative changes, as described above. No demonstrated acute cardiopulmonary process. Electronically Signed: Dimitri Hernandez MD at 4:50 EDT Tel , Service support , Knee X-Ray 11/07/20 03:25 IMPRESSION: There is soft tissue swelling. There is a moderate joint effusion. Degenerative changes. No acute fracture. Electronically Signed: Dimitri Hernandez MD at 4:51 EDT Tel , Service support , Foot X-Ray 11/07/20 03:26 IMPRESSION: There is irregularity at the posterior malleolus. No prior studies available for comparison. A nondisplaced fracture is not excluded recommend dedicated ankle radiographs for further evaluation. Old fracture of the lateral malleolus. Soft tissue swelling. There is some juxta articular erosions and degenerative changes of the first MTP joint with overlying soft tissue swelling. This is compatible with patient''s history of gout. Correlate for acute flare. Electronically Signed: Dimitri Hernandez MD at 4:57 EDT Tel , Service support , Assessment & Plan Assessment/Plan (1) Chest pain: QUALIFIERS: Chest pain type: unspecified Qualified Code(s): R07.9 - Chest pain, unspecified (2) Gout attack: QUALIFIERS: Gout etiology: unspecified cause Gout site: foot Lat erality: right Qualified Code(s): M10.9 - Gout, unspecified (3) Muscle strain: PLAN: Chest pain Place on a monitored bed at the PCU Impression of chest x-ray by radiology: No demonstrated acute cardiopulmonary process. Actual CXR image was independently visualized. No acute cardiopulmonary process was noted. Actual EKG tracing was independently visualized. EKG tracing showed no ST or T wave abnormalities. Left axis deviation noted ASA 81 mg p.o. daily continued. Prasugrel continued. SL NTG 0.4 mg prn as needed for chest pain ordered Morphine as needed for pain ordered Old records reviewed showed that last lipid panel on file at the hospital was in 2018. Will check lipid panel. Statin: With history of CAD and of multiple stents patient should be on a statin. Will start patient on statin. Review of old records shows that liver biochemistry on 08/11/2020 was unremarkable. Initial troponin was negative Serial cardiac enzymes ordered Stat EKG as needed for chest pain DIANNE score of 5 points; 26% all cause mortality risk. Cardiology consult. Gout attack By radiology impression of foot x-ray a fracture was not excluded so ankle x-ray was ordered at the ED; follow. Also foot x-ray showed irregularity at the posterior malleolus. Soft tissue swelling and degenerative changes of the first MTP joint with overlying soft tissue swelling compatible with history of gout. Right knee x-ray with moderate joint effusion and soft tissue swelling. No acute fracture was seen. Solu-Medrol and morphine ordered. Colchicine and allopurinol continued. Wrist pain/muscle strain No acute fracture or dislocation identified on x-ray. Mild soft tissue swelling. Solu-Medrol and morphine ordered. Hypertension Per patient his baseline systolic blood pressure is usually in the one teens but with pain systolic blood pressure has increased. Lisinopril continued. Reportedly was on metoprolol previously and was stopped. Trend blood pressure and adjust blood pressure medications as necessary. DVT prophylaxis: With history of GI bleed no anticoagulation ordered. SCD ordered. Charges/Coding Visit Charges OBSV E&M: 99207 Initial observation care L3
--- NOTE | 2020-11-07 05:30 | RAD_ITS ---
STUDY: X-RAY - RIGHT ANKLE REASON FOR EXAM: Male, 70 years old. pain TECHNIQUE: 3 view(s) of the ankle. COMPARISON: None. FINDINGS: Normal visualized distal tibia and fibula. Chronic corticated avulsion fracture lateral malleolus the fibula. Normal tibiotalar articulation and ankle mortise. Normal visualized talus and calcaneus. The visualized subtalar, talonavicular, calcaneocuboid and tarsal articulations are normal. The soft tissue structures are unremarkable. RAD/Ankle min 3 Views IMPRESSION: No acute fracture or dislocation. Electronically Signed: Iam Rangel MD at 7:03 EDT Tel , Service support ,
--- NOTE | 2020-11-07 05:47 | EKG12_ITS ---
Test Reason : CP ADMIT Blood Pressure : / mmHG Vent. Rate : 078 BPM Atrial Rate : 078 BPM P-R Int : 124 ms QRS Dur : 114 ms QT Int : 378 ms P-R-T Axes : 049 -34 040 degrees QTc Int : 430 ms Normal sinus rhythm Left axis deviation Abnormal ECG When compared with ECG of 07-NOV-2020 03:15, MANUAL COMPARISON REQUIRED, DATA IS UNCONFIRMED Confirmed by RAGINI NAZARIO, JAMES ([id number]), science editor VANESSA DUQUE ([id number]) on 11/09/2020 9:09:16 AM Referred By: ALEX Confirmed By:JAMES EID MD
[2020-11-07] MEDS: Atorvastatin Calcium 40 MG Tablet PO (06:51)
[2020-11-07] MEDS: Sucralfate 1 GM Tablet 0.5 GM PO ×3 (06:53→22:35)
[2020-11-07 07:19] LABS: Cholesterol 194 mg/dL (200); High Density Lipoprotein 58 mg/dL; Triglycerides 112 mg/dL; Very Low Density Lipoprotein 22 mg/dL (5-40)
[2020-11-07] MEDS: Lisinopril 2.5 MG Tablet PO (08:29)
[2020-11-07] MEDS: Tamsulosin HCl 0.4 MG Capsule PO (08:30)
[2020-11-07] MEDS: Ascorbic Acid 500 MG Tablet PO (08:30)
[2020-11-07] MEDS: Allopurinol 100 MG Tablet PO ×2 (08:30→08:32)
[2020-11-07] MEDS: Colchicine 0.6 MG TABLET PO ×2 (08:30→22:35)
[2020-11-07] MEDS: Cholecalciferol (VIT D3) 25 MCG TABLET (1,000 UNITS) 125 MCG PO (08:31)
[2020-11-07] MEDS: Pantoprazole Sodium 40 MG Tablet PO ×2 (08:32→22:36)
[2020-11-07] MEDS: Magnesium Chloride 64 MG Delay Rel.Tablet PO (08:32)
[2020-11-07] MEDS: Aspirin 81 MG TAB.CHEW PO (08:33)
[2020-11-07] MEDS: Finasteride 5 MG Tablet PO (08:33)
[2020-11-07] MEDS: ALPRAZolam 0.5 MG Tablet PO ×2 (08:59→22:40)
[2020-11-07] MEDS: Acetaminophen 325 MG Tablet 650 MG PO (09:00)
--- NOTE | 2020-11-07 09:55 | PN.HOSP_ITS ---
Hospitalist Note This is a 70 years old male patient presented to the emergency room because of excruciating right foot, right ankle and right knee pain, started 3 days ago, severe dull aching pain, aggravated by any type of movement. He did have a history of recurrent gout. He was started on colchicine and he has been on allopurinol for acute gouty arthritis. He presented to the emergency room because pain was severe and excruciating. Also, he complained of right hand and wrist pain after he injured right wrist with tremor at home. He complained of chest pain, it is mainly epigastric pain, described as discomfort and localized tenderness. Denied shortness of breath, dizziness, sweating, nausea vomiting. On examination: Significant erythema and swelling on the right first big toe extending to the dorsal aspect of the right foot and right ankle, very tender to palpation. Mild erythema and swelling of the right knee, tender. Swelling of the right wrist, tender. Otherwise examination is essentially unremarkable. Imaging studies: I reviewed the right wrist x-ray, chest x-ray, right knee x- ray, foot x-ray, ankle x-ray, findings noted. No fracture on the right wrist or right hand. EKG: Normal sinus rhythm, left axis deviation, no acute segment changes. Troponin is negative x3. Currently patient is on IV Solu-Medrol, colchicine, allopurinol and IV morphine as needed. Plan: Change IV Solu-Medrol to p.o. prednisone 60 mg daily, discontinue allopurinol as patient having acute gout, start as needed ibuprofen, start OxyIR as needed for pain, continue colchicine, check uric acid level, increase Protonix to twice daily, start Mylanta as needed. Regarding the chest pain: I think at this likely due to GI etiology such as gastritis. I doubt cardiac etiology. No indication to do any further cardiac work-up. I will cancel cardiology consult. Repeat CBC and BMP tomorrow morning.
[2020-11-07 11:10] LABS: Uric Acid 6.8 mg/dL (3.5-7.2)
[2020-11-07] MEDS: oxyCODONE 5 MG Tablet PO (18:10)
[2020-11-08] VITALS (10 sets, daily range): BP systolic 118–139; BP diastolic 69–88; PULSE 71–96; RESP 16–18; TEMP 36.1–36.9; O2SAT 95–98
[2020-11-08] MEDS: oxyCODONE 5 MG Tablet PO ×4 (01:06→20:59)
[2020-11-08] MEDS: Sucralfate 1 GM Tablet 0.5 GM PO ×3 (06:14→20:56)
[2020-11-08 06:56] LABS: Absolute Lymphocyte Count 1.71 X10^3/uL (0.83-4.51); Absolute Neutrophil Count 14.4 X10^3/uL (2.0-7.7); Basophil# 0.02 X10^3/uL; Basophil% 0.1 % (0-1); Eosinophil# 0.02 X10^3/uL; Eosinophils% 0.1 % (0-5); Hematocrit 36.5 % (40-54); Hemoglobin 11.8 g/dL (13.0-16.5); Lymphocyte # 1.71 X10^3/ul (0.83-4.51); Lymphocyte % 9.5 % (19-41); Mean Corp Hgb Conc 32.3 g/dL (32-36); Mean Corpuscular Hgb 28.4 pg (27.0-32.0); Mean Corpuscular Volume 87.7 fL (80-94); Mean Platelet Vol. 9.9 fl (6.2-12.0); Monocyte# 1.71 X10^3/uL; Monocyte% 9.5 % (0-10); NRBC Flagged by Analyzer 0 % (0-5); Neutrophil # 14.44 X10^3/uL (2.7-7.7); Neutrophil % 80.2 % (47-70); POSITIVE DIFFERENTIAL YES; Platelet Count 234 K/mm3 (150-450); RBC Distribution Width CV 15.3 % (11.6-14.6); RBC Distribution Width SD 48.9 fl (35.1-43.9); Red Blood Count 4.16 M/mm3 (4.6-6.2)
[2020-11-08 07:07] LABS: Differential Indicated SCAN CRITERIA MET
[2020-11-08 07:23] LABS: Anion Gap 6 (5-15); BUN 30 mg/dL (7-18); Calcium,Total 9.4 mg/dL (8.5-10.1); Chloride 107 mmol/L (98-107); Creatinine, Serum 1.25 mg/dL (0.70-1.30); EST Glomerular Filtration Rate 61 mL/min (>60); Est Glom Filt Rate - Afr Amer 73 mL/min (>60); Estimated Creatinine Clearance 51.41 ml/min; Glucose 105 mg/dL (74-106); Potassium 3.9 mmol/L (3.5-5.1); Sodium Level 137 mmol/L (136-145)
[2020-11-08] MEDS: predniSONE 20 MG Tablet 60 MG PO (08:17)
[2020-11-08] MEDS: Cholecalciferol (VIT D3) 25 MCG TABLET (1,000 UNITS) 125 MCG PO (08:17)
[2020-11-08] MEDS: Ibuprofen 600 MG Tablet PO (08:18)
[2020-11-08] MEDS: Magnesium Chloride 64 MG Delay Rel.Tablet PO (08:18)
[2020-11-08] MEDS: Pantoprazole Sodium 40 MG Tablet PO ×2 (08:18→20:57)
[2020-11-08] MEDS: Colchicine 0.6 MG TABLET PO ×2 (08:18→20:56)
[2020-11-08] MEDS: Ascorbic Acid 500 MG Tablet PO (08:18)
[2020-11-08] MEDS: ALPRAZolam 0.5 MG Tablet PO ×2 (08:18→20:59)
[2020-11-08] MEDS: Aspirin 81 MG TAB.CHEW PO (08:19)
[2020-11-08] MEDS: Senna/Docusate Sodium 1 Tablet 2 TABLET PO (08:23)
--- NOTE | 2020-11-08 11:27 | PN.HOSP_ITS ---
Subjective Subjective Patient is a 70-year-old gentleman admitted with chest pain, right foot pain and right wrist pain. Patient reports fall with recent right wrist injury and dislocation involving the right thumb for which he placed it back himself.. [place] has so far been ruled out. Patient however report significant right wrist pain with restricted movement Objective Data Objective Data Vital Signs: Vital Signs Temp Pulse Resp BP Pulse Ox 98.0 F 73 16 127/73 H 97 11/08/20 08:14 11/08/20 08:14 11/08/20 08:14 11/08/20 08:14 11/08/20 08:14 Oxygen Delivery Method Room Air Weight: 79.1 kg Body Mass Index (BMI) 27.3 Intake & Output: Intake and Output for Last 24 Hours 11/06/20 11/07/20 11/08/20 23:59 23:59 23:59 Intake Total 350 / 350 Output Total 725 / 1025 500 / 500 Balance -375 / -675 -500 / -500 Lab / Micro Data Result Diagrams: 11/08/20 06:40 11/08/20 06:40 Labs: Laboratory Results - last 24 hr 11/08/20 11/08/20 06:40 06:40 WBC 18.0 H RBC 4.16 L Hgb 11.8 L Hct 36.5 L MCV 87.7 MCH 28.4 MCHC 32.3 RDW Std Deviation 48.9 H RDW Coeff of Leeann 15.3 H Plt Count 234 MPV 9.9 Immature Gran % (Auto) 0.600 Neut % (Auto) 80.2 H Lymph % (Auto) 9.5 L [place] % (Auto) 9.5 Eos % (Auto) 0.1 Baso % (Auto) 0.1 Absolute Neuts (auto) 14.4 H Absolute Lymphs (auto) 1.71 Nucleated RBC % 0 Diff Path Review May foll Sodium 137 Potassium 3.9 Chloride 107 Carbon Dioxide 24.0 Anion Gap 6 BUN 30 H Creatinine 1.25 Estim Creat Clear Calc 51.41 Est GFR (MDRD) Af Amer 73 Est GFR (MDRD) Non-Af 61 BUN/Creatinine Ratio 24.0 H Glucose 105 Calcium 9.4 Physical Exam Narrative GENERAL: cooperative HEENT: Atraumatic; EYES; Anicteric, Normal Conjunctiva NECK; supple, normal thyroid, RESPIRATORY: Diminished to auscultation CARDIOVASCULAR: Regular S1 S2, GI: soft, normoactive bowel sounds, : No Renal angle tenderness; EXTREMITIES: Right wrist tender with restricted movement MUSCULOSKELETAL: no muscle waisting NEURO: Awake; no lateralizing signs. SKIN: No Rash PSYCH; Flat affect Assessment & Plan Assessment/Plan (1) Chest pain: QUALIFIERS: Chest pain type: unspecified Qualified Code(s): R07.9 - Chest pain, unspecified (2) Gout attack: QUALIFIERS: Gout site: foot Gout etiology: unspecified cause Laterality: right Qualified Code(s): M10.9 - Gout, unspecified (3) Muscle strain: PLAN: Patient is a 70-year-old gentleman admitted with chest pain, right foot pain and right wrist pain. Patient reports fall with recent right wrist injury and dislocation involving the right thumb for which he placed it back himself.. [place] has so far been ruled out. Patient however report significant right wrist pain with restricted movement 1. Chest pain ?[place] was ruled out. Plans for patient to undergo subsequent evaluation as outpatient if pain recurs 2. Right wrist injury ?Imaging studies obtained on admission was negative for fracture however did demonstrate soft tissue swelling. Patient did request for orthopedic consultation 3. Suspected acute gouty arthritis ?Patient is on allopurinol and colchicine did continue added steroids 4. Coronary artery disease ?With previous PCI/multiple stent placement. Patient is on dual antiplatelet therapy continued 5. Hypertension - Blood pressure controlled, home medications continued with dose adjustment as needed 6. GERD ?Patient on PPI 7. BPH ?Patient is on both finasteride as well as tamsulosin did continue 8. DVT prophylaxis ?Lovenox Charges/Coding Visit Charges OBSV E&M: 25065 Subsequent observation care L3
--- NOTE | 2020-11-08 12:10 | CASEMGMT ---
This RN CM to room with CASE form, explanation done-pt voices understanding, and pt signs CASE form at this time. Original to chart and copy to pt. Pt is A/Ox4 at this time. Boo RAMOS CM
--- NOTE | 2020-11-08 13:35 | CON.PCM.OR_ITS ---
HPI Consult Data Date of Consult: 11/08/20 HPI Narrative Reason for Consultation: Right wrist, right knee, right ankle/foot pain HPI Narrative: SEBASTIEN BARON, is a 70 M who presents With a 2-week history of right knee and ankle pain which she has been being treated for gout. Patient states approximately 10 days ago he fell, reports that he apparently dislocated his thumb which she pulled and put back in the place per his history. Patient denies any other associated injury with this fall. Patient denies striking his head any neck or back pain. The patient feels the medication has started to improve his knee and ankle pain, however sti ll having a lot of pain in his wrist. Patient has been wearing a Velcro wrist splint which is helped in his pain. Patient states he has pain with any flexion extension supination pronation of the wrist. Rates the pain as high as a 9 on a scale 1-10 when it becomes quite severe. Has a constant pain of a 4 in his wrist. He states he has a pain of a 7 when he weight bears on his knee and ankle. Patient feels is otherwise of good health he denies any recent illnesses or infection. He denies any other history of trauma. COUNT INCLUDES THE [facility] Medical History Alcoholism Anemia Anxiety Atherosclerosis of coronary artery without angina pectoris Back pain BiPAP (biphasic positive airway pressure) dependence Chronic pain Coronary artery disease Dementia Depression Essential (primary) hypertension GI hemorrhage Gout History of stress test Hyperlipidemia Hypertension Myocardial infarct Non-smoker NSTEMI (non-ST elevated myocardial infarction) (04/13/18) Obesity Pancreatitis Pulmonary embolism Rheumatoid arthritis Sleep apnea Traumatic brain injury Home Medications acetylcysteine (bulk) [N-Gdadtv-E-Cysteine] ea MISCELLANEOUS 11/07/20 [History Last Taken Unknown] allopurinol 50 mg PO DAILY 11/07/20 [History Last Taken Unknown] alprazolam [Xanax] 0.5 mg PO BID 11/07/20 [History Last Taken Unknown] ascorbic acid (vitamin C) [Vitamin C] 500 mg PO DAILY 11/07/20 [History Last Taken Unknown] aspirin [Baby Aspirin] 81 mg PO DAILY 11/07/20 [History Last Taken Unknown] cholecalciferol (vitamin D3) 125 mcg PO DAILY 11/07/20 [History Last Taken Unk nown] colchicine [Colcrys] 0.6 mg PO BID 11/07/20 [History Last Taken Unknown] finasteride 5 mg PO QHS 11/07/20 [History Last Taken Unknown] iron 11/07/20 [History Last Taken Unknown] lisinopril 2.5 mg PO QHS 11/07/20 [History Last Taken Unknown] magnesium 250 mg PO DAILY 11/07/20 [History Last Taken Unknown] pantoprazole 40 mg PO DAILY 11/07/20 [History Last Taken Unknown] prasugrel 10 mg PO DAILY 11/07/20 [History Last Taken Unknown] sucralfate 500 mg PO TID 11/07/20 [History Last Taken Unknown] tamsulosin 0.4 mg PO QHS 11/07/20 [History Last Taken Unknown] Allergy/AdvReac Type Severity Reaction Status Date / Time No Known Allergies Allergy Verified 08/10/20 15:50 Family History Mother CAD (coronary artery disease) Surgical History History of coronary artery stent placement (04/13/18) History of knee surgery History of repair of rotator cuff Hx of cholecystectomy Social History Smoking Status: Never smoker Vital Signs Vital Signs Vital Signs: 11/07/20 16:58 11/07/20 18:15 11/07/20 19:02 Temperature 97.9 F Temperature Source Oral Pulse Rate 78 82 80 Respiratory Rate 16 Respiratory Effort Respiratory Depth Respiratory Pattern Blood Pressure 127/72 H Blood Pressure Mean 90 Blood Pressure Source Monitor Blood Pressure Position Semi-Fowlers Blood Pressure Location Right Arm Pulse Ox 96 Oxygen Delivery Method Room Air 11/07/20 22:00 11/07/20 22:28 11/07/20 23:00 Temperature 97.9 F Temperature Source Oral Pulse Rate 70 79 Respiratory Rate 18 Respiratory Effort Normal Non-Labored Respiratory Depth Normal Respiratory Pattern Normal Blood Pressure 109/81 H Blood Pressure Mean 90 Blood Pressure Source Monitor Blood Pressure Position Semi-Fowlers Blood Pressure Location Left Arm Pulse Ox 94 Oxygen Delivery Method Bi-pap Room Air 11/08/20 03:01 11/08/20 04:21 11/08/20 06:57 Temperature 98.2 F Temperature Source Oral Pulse Rate 74 83 87 Respiratory Rate 18 Respiratory Effort Respiratory Depth Respiratory Pattern Blood Pressure 118/69 Blood Pressure Mean 85 Blood Pressure Source Monitor Blood Pressure Position Semi-Fowlers Blood Pressure Location Right Arm Pulse Ox 98 Oxygen Delivery Method Room Air 11/08/20 08:14 11/08/20 11:00 Temperature 98.0 F Temperature Source Oral Pulse Rate 73 71 Respiratory Rate 16 Respiratory Effort Respiratory Depth Respiratory Pattern Blood Pressure 127/73 H Blood Pressure Mean 91 Blood Pressure Source Monitor Blood Pressure Position Semi-Fowlers Blood Pressure Location Right Arm Pulse Ox 97 Oxygen Delivery Method Room Air Weight Weight: 79.1 kg Body Mass Index (BMI) 27.3 Physical Exam Narrative Exam I found a pleasant healthy-appearing 70-year-old male sitting up in bed with his at his bedside. Cranial nerves II through XII grossly intact. There was no signs of trauma to the head face and neck. Patient no pain to palpation cervical thoracic spine. He had full range of motion of bilateral shoulders left elbow wrist and hand. On exam of the right wrist, hand. I found some old ecchymosis appreciated greatest on the volar surface of the wrist. There was no gross bony mallet deformity. Patient was exquisitely tender to palpation through the distal radius ulna. Patient was also tender by complaint to any palpation to the carpal bones in the second, third, and fourth metacarpals. Patient complained of stiffness with any motion of the digits of the hand. He had no gross bony abnormality deformity noted to the carpal bones metacarpal or phalanges. Patient had no obvious redness swelling, or edema. No deformity of the DIP, PIP or MCP joints. Patient no pain on palpation in the area of the anatomical snuffbox or scaphoid region. Patient did have increasing pain with flexion extension supination supination pronation. No pain with flexion extension of the right elbow. Exam of the right knee, it was cool to touch nonerythematous. Patient complained of pain with extension beyond 3 degr ees flexion to 110 degrees. Patient did have slight varus deformity. Patient also had mild pain with crepitus and a positive patellar grind test. The ankle was cool to touch nonerythematous. He complained of pain with any plantar flexion, dorsiflexion of the foot. Patient had no gross bony mallet deformity. Patient did have some mild redness with an appearance of a gouty joint at the base of the great toe of the right foot. Did not appear to be infectious in nature. Neurovascular is otherwise intact. Const oriented x3 HEENT normocephalic Eyes PERRL Resp normal respiratory effort Back/Spine Cervical Spine: cervical ROM normal Extremity normal capillary refill, no clubbing, cyanosis or edema and no calf tenderness Skin no rashes or lesions noted Neuro CN's II-XII intact bilaterally and moves all extremities Psych mental status grossly normal and affect normal Lab / Micro Data Result Diagrams: 11/08/20 06:40 11/08/20 06:40 Labs: Laboratory Results - last 24 hr 11/08/20 11/08/20 06:40 06:40 WBC 18.0 H RBC 4.16 L Hgb 11.8 L Hct 36.5 L MCV 87.7 MCH 28.4 MCHC 32.3 RDW Std Deviation 48.9 H RDW Coeff of Leeann 15.3 H Plt Count 234 MPV 9.9 Immature Gran % (Auto) 0.600 Neut % (Auto) 80.2 H Lymph % (Auto) 9.5 L [place] % (Auto) 9.5 Eos % (Auto) 0.1 Baso % (Auto) 0.1 Absolute Neuts (auto) 14.4 H Absolute Lymphs (auto) 1.71 Nucleated RBC % 0 Diff Path Review May foll Sodium 137 Potassium 3.9 Chloride 107 Carbon Dioxide 24.0 Anion Gap 6 BUN 30 H Creatinine 1.25 Estim Creat Clear Calc 51.41 Est GFR (MDRD) Af Amer 73 Est GFR (MDRD) Non-Af 61 BUN/Creatinine Ratio 24.0 H Glucose 105 Calcium 9.4 Assessment & Plan Assessment/Plan (1) Right wrist pain: PLAN: 1. Continue all pain medications as prescribed. 2. Tylenol extra strength 500 mg 2 p.o. every 8 hours scheduled 3. Continue the colchicine as prescribed. 4. Use walker as needed for ambulation, weight-bear as tolerated on the right knee and ankle. 5. Continue wearing the Velcro wrist brace for support. 6. Encourage ambulation and mobility of the lower extremities and right wrist. 7. Ice as needed for pain to the right knee ankle and right wrist. 8. Begin physical therapy, for mobility of right wrist, knee, and ankle. 9. Follow-up in 2 weeks at [facility], call for appointment (2) Acute gout: QUALIFIERS: Gout site: foot Gout etiology: unspecified cause Laterality: right Qualified Code(s): M10.9 - Gout, unspecified (3) Sprain of right wrist: QUALIFIERS: Encounter type: initial encounter Qualified Code(s): S63.501A - Unspecified sprain of right wrist, initial encounter (4) Osteoarthritis of right knee: QUALIFIERS: Osteoarthritis type: primary Qualified Code(s): M17.11 - Unilateral primary osteoarthritis, right knee (5) Right ankle pain: QUALIFIERS: Chronicity: chronic Qualified Code(s): M25.571 - Pain in right ankle and joints of right foot; G89.29 - Other chronic pain
[2020-11-08 13:56] LABS: Pathologist Review Reviewed
[2020-11-08 13:58] LABS: Pathologist Review Reviewed
[2020-11-08] MEDS: Acetaminophen 325 MG Tablet 650 MG PO ×2 (14:27→20:59)
[2020-11-08] MEDS: Enoxaparin 40 MG/0.4 ML Syringe SC (14:39)
--- NOTE | 2020-11-08 15:05 | CASEMGMT ---
SW spoke with patient and his per their request. SW discussed therapy options including home health and [facility] facility. After discussion they decided they would like patient to go to TCU. SW explained that since he did not have his COVID vaccine he will have to quarantine for 14 days. SW had to explain this just means he will have to stay in his room, but he will still get therapy. SW told them visits have to be scheduled. SW checked and TCU would have a bed for patient. ELKE let patient and his know this information. ELKE notified patient, his , RN, and physician. Plan: [facility] TCU pending pre-cert. Velvet SETHI
[2020-11-08] MEDS: Tamsulosin HCl 0.4 MG Capsule PO (20:56)
[2020-11-08] MEDS: Atorvastatin Calcium 40 MG Tablet PO (20:56)
[2020-11-08] MEDS: Lisinopril 2.5 MG Tablet PO (20:57)
[2020-11-08] MEDS: Finasteride 5 MG Tablet PO (20:57)
[2020-11-09] VITALS (7 sets, daily range): BP systolic 122–134; BP diastolic 67–74; PULSE 57–77; RESP 18; TEMP 36.4–36.7; O2SAT 95–98
[2020-11-09] MEDS: oxyCODONE 5 MG Tablet PO ×3 (03:22→16:02)
[2020-11-09] MEDS: Acetaminophen 325 MG Tablet 650 MG PO (03:23)
[2020-11-09] MEDS: Sucralfate 1 GM Tablet 0.5 GM PO ×2 (06:04→15:21)
[2020-11-09] MEDS: Senna/Docusate Sodium 1 Tablet 2 TABLET PO (06:07)
[2020-11-09 06:52] LABS: Magnesium 2.2 mg/dL (1.6-2.6); Phosphorus 3.3 mg/dL (2.5-4.9)
[2020-11-09] MEDS: Aspirin 81 MG TAB.CHEW PO (09:44)
[2020-11-09] MEDS: Magnesium Chloride 64 MG Delay Rel.Tablet PO (09:44)
[2020-11-09] MEDS: Pantoprazole Sodium 40 MG Tablet PO (09:44)
[2020-11-09] MEDS: Cholecalciferol (VIT D3) 25 MCG TABLET (1,000 UNITS) 125 MCG PO (09:44)
[2020-11-09] MEDS: Enoxaparin 40 MG/0.4 ML Syringe SC (09:45)
[2020-11-09] MEDS: Ascorbic Acid 500 MG Tablet PO (09:46)
[2020-11-09] MEDS: Colchicine 0.6 MG TABLET PO (09:46)
[2020-11-09] MEDS: predniSONE 20 MG Tablet 60 MG PO (09:46)
[2020-11-09] MEDS: ALPRAZolam 0.5 MG Tablet PO (09:48)
--- NOTE | 2020-11-09 10:56 | PN.HOSP_ITS ---
Subjective Subjective Patient seen his right wrist was placed in a splint. Was also found to be deconditioned consult placed to case management to assist with disposition. Patient is requesting rehab Objective Data Objective Data Vital Signs: Vital Signs Temp Pulse Resp BP Pulse Ox 98.1 F 58 L 18 122/74 H 96 11/09/20 03:15 11/09/20 07:04 11/09/20 03:15 11/09/20 03:15 11/09/20 07:27 Oxygen Delivery Method Room Air Weight: 79.1 kg Body Mass Index (BMI) 27.3 Intake & Output: Intake and Output for Last 24 Hours 11/07/20 11/08/20 11/09/20 23:59 23:59 23:59 Intake Total 350 / 350 240 / 240 Output Total 725 / 1025 500 / 950 950 / 950 Balance -375 / -675 -500 / -830 -710 / -710 Lab / Micro Data Result Diagrams: 11/08/20 06:40 11/08/20 06:40 Labs: Laboratory Results - last 24 hr 11/07/20 11/08/20 11/09/20 03:15 06:40 05:56 Diff Path Review Reviewed Reviewed Phosphorus 3.3 Magnesium 2.2 Physical Exam Narrative GENERAL: cooperative HEENT: Atraumatic; EYES; Anicteric, Normal Conjunctiva NECK; supple, normal thyroid, RESPIRATORY: Diminished to auscultation CARDIOVASCULAR: Regular S1 S2, GI: soft, normoactive bowel sounds, : No Renal angle tenderness; EXTREMITIES: Right wrist in a splint MUSCULOSKELETAL: no muscle waisting NEURO: Awake; no lateralizing signs. SKIN: No Rash PSYCH; Flat affect Assessment & Plan Assessment/Plan (1) Chest pain: QUALIFIERS: Chest pain type: unspecified Qualified Code(s): R07.9 - Chest pain, unspecified (2) Gout attack: QUALIFIERS: Gout site: foot Gout etiology: unspecified cause Laterality: right Qualified Code(s): M10.9 - Gout, unspecified (3) Muscle strain: PLAN: Patient is a 70-year-old gentleman admitted with chest pain, right foot pain and right wrist pain. Patient reports fall with recent right wrist injury and dislocation involving the right thumb for which he placed it back himself.. [place] has so far been ruled out. Patient however report significant right wrist pain with restricted movement 1. Chest pain ?[place] was ruled [place]. Plans for patient to undergo subsequent evaluation as outpatient if pain recurs 2. Right wrist injury ?Imaging studies obtained on admission was negative for fracture however did demonstrate soft tissue swelling. Patient did request for orthopedic consultation -11/09/2020; patient seen his right wrist was placed in a splint. Patient was also seen in consultation by orthopedic surgery noted recommendations reviewed 3. Suspected acute gouty arthritis ?Patient is on allopurinol and colchicine did continue added steroids 4. Coronary artery disease ?With previous PCI/multiple stent placement. Patient is on dual antiplatelet therapy continued 5. Hypertension - Blood pressure controlled, home medications continued with dose adjustment as needed 6. GERD ?Patient on PPI 7. BPH ?Patient is on both finasteride as well as tamsulosin did continue 8. DVT prophylaxis ?Lovenox 9. Physical deconditioning - Requested for PT OT eval and public health social worker to assist with discharge planning Charges/Coding Visit Charges Inpatient E&M: 68610 Subs Hosp L2
--- NOTE | 2020-11-09 11:50 | PCM.TXEXTCAR ---
Diet 11/07/20 05:47 Diet: Cardiac - Heart Healthy Food consistency:: Regular Liquid Consistency:: Regular/Thin Therapies Physical Therapy: Eval and Treat Occupational Therapy: Eval and Treat Problem/Diagnosis (1) Chest pain: Status: Deleted (2) Gout attack: Status: Deleted (3) Muscle strain: Status: Deleted Allergies/Procedures Done in Hospital Allergies No Known Allergies Allergy (Verified 08/10/20 15:50) Type of Care/Length of Stay Estimated LOS: Convalescent Care Less Than 30 days Type of Care Needed: Skilled Rehab Potential: Good Prognosis: Good Additional Orders/Day of Discharge Day of Discharge: 11/09/20 Discharge Plan Admission Admit Date/Time: 11/07/20 05:02 Primary Reason for Your Visit: Chest pain, right wrist pain following a fall Attending Provider: Fabio Tovar Primary Care Provider: Herb Middleton Consulting Providers: Cristobal Glass Instructions Patient Instructions: ED Chest Pain, Noncardiac Discharge Orders/Prescriptions Prescriptions: New atorvastatin 40 mg Tablet 40 mg PO QHS Qty: 0 RF: 0 acetaminophen [Tylenol] 325 mg Tablet 650 mg PO Q6H PRN PRN (Reason: Pain Score 1-10/Temp > 100.7 F) Qty: 0 RF: 0 prednisone 20 mg Tablet 60 mg PO BREAKFAST 5 Days Qty: 0 RF: 0 sennosides-docusate sodium [Stool Softener-Stimulant Laxat] 8.6-50 mg Tablet 2 tab PO BID PRN PRN (Reason: Constipation) Qty: 0 RF: 0 melatonin 3 mg Tablet 3 mg PO QHS PRN PRN (Reason: Insomnia) Qty: 0 RF: 0 nitroglycerin 0.4 mg Tablet, Sublingual 0.4 mg sublingual Q5M PRN (Reason: Cardiac/Chest Pain) Qty: 0 RF: 0 ibuprofen 600 mg Tablet 600 mg PO Q8H PRN PRN (Reason: Pain 1-10 Or Fever) Qty: 0 RF: 0 alum-mag hydroxide-simeth [Mag-Al Plus Extra Strength] 400-400-40 mg/5 mL Suspension 15 ml PO Q6H PRN PRN (Reason: Heartburn, indigestion) Qty: 0 RF: 0 oxycodone 5 mg Tablet 5 mg PO Q4H PRN PRN (Reason: Pain Score 6-10) 2 Days Qty: 10 RF: 0 Continued sucralfate 1 gram Tablet 500 mg PO Q6H RF: 0 allopurinol 100 mg Tablet 50 mg PO DAILY RF: 0 ascorbic acid (vitamin C) [Vitamin C] 500 mg Tablet 500 mg PO DAILY RF: 0 tamsulosin 0.4 mg Capsule 0.4 mg PO QHS RF: 0 pantoprazole 40 mg Tablet,Delayed Release (Dr/Ec) 40 mg PO DAILY RF: 0 aspirin 81 mg Tablet,Chewable 81 mg PO DAILY RF: 0 magnesium 250 mg Tablet 250 mg PO DAILY RF: 0 colchicine [Colcrys] 0.6 mg Tablet 0.6 mg PO BID RF: 0 lisinopril 2.5 mg Tablet 2.5 mg PO QHS RF: 0 acetylcysteine (bulk) Powder MISCELLANEOUS RF: 0 finasteride 5 mg Tablet 5 mg PO QHS RF: 0 cholecalciferol (vitamin D3) 125 mcg (5,000 unit) Tablet 125 mcg PO DAILY RF: 0 prasugrel 10 mg Tablet 10 mg PO DAILY RF: 0 iron RF: 0 alprazolam [Xanax] 0.5 mg Tablet 0.5 mg PO BID Qty: 4 RF: 0 Referrals / Follow Up: Herb Middleton MD [Primary Care Provider] - Disposition Disposition (needs filled in before D/C Order can be placed): Acute [facility]
--- NOTE | 2020-11-09 11:57 | DS.PCM_ITS ---
Providers Date of Admission: 11/07/20 Primary Care Physician: Dr. Herb Middleton MD Consultations 11/08/20 11:25 Consult: Orthopedics Routine Consulting Provider: Cristobal Glass Reason for Consult: R wrist pain EMERGENT Consult: No MD Notified: Yes Date Notified: 11/08/20 Time Notified: 11:32 Method of Notification: Verbal Reason For Visit: GOUT FLARE, RIGHT WRIST PAIN Diagnosis Discharge Diagnosis (1) Chest pain: Status: Deleted Code(s): R07.9 - Chest pain, unspecified Qualifiers: Chest pain type: unspecified Qualified Code(s): R07.9 - Chest pain, unspecified (2) Gout attack: Status: Deleted Code(s): M10.9 - Gout, unspecified Qualifiers: Gout site: foot Gout etiology: unspecified cause Laterality: right Qualified Code(s): M10.9 - Gout, unspecified (3) Muscle strain: Status: Deleted Code(s): T14.8XXA - Other injury of unspecified body region, initial encounter Medications at Discharge Home Medications acetylcysteine (bulk) ea MISCELLANEOUS 11/07/20 allopurinol 50 mg PO DAILY 11/07/20 ascorbic acid (vitamin C) [Vitamin C] 500 mg PO DAILY 11/07/20 aspirin 81 mg PO DAILY 11/07/20 cholecalciferol (vitamin D3) 125 mcg PO DAILY 11/07/20 colchicine [Colcrys] 0.6 mg PO BID 11/07/20 finasteride 5 mg PO QHS 11/07/20 iron 11/07/20 lisinopril 2.5 mg PO QHS 11/07/20 magnesium 250 mg PO DAILY 11/07/20 pantoprazole 40 mg PO DAILY 11/07/20 prasugrel 10 mg PO DAILY 11/07/20 sucralfate 500 mg PO Q6H 11/07/20 tamsulosin 0.4 mg PO QHS 11/07/20 acetaminophen [Tylenol] 650 mg PO Q6H PRN PRN #0 tab 11/09/20 alprazolam [Xanax] 0.5 mg PO BID #4 tab 11/09/20 alum-mag hydroxide-simeth [Mag-Al Plus Extra Strength] 15 ml PO Q6H PRN PRN #0 ml 11/09/20 atorvastatin 40 mg PO QHS #0 tab 11/09/20 ibuprofen 600 mg PO Q8H PRN PRN #0 tab 11/09/20 melatonin 3 mg PO QHS PRN PRN #0 tab 11/09/20 nitroglycerin 0.4 mg SUBLINGUAL Q5M PRN #0 tab 11/09/20 oxycodone 5 mg PO Q4H PRN PRN 2 Days #10 tab 11/09/20 prednisone 60 mg PO BREAKFAST 5 Days #0 tab 11/09/20 sennosides-docusate sodium [Stool Softener-Stimulant Laxat] 2 tab PO BID PRN PRN #0 tab 11/09/20 Hospital Course Summary of Care Provided Minutes Spent on Discharge: 35 Hospital Course: Patient is a 70-year-old gentleman admitted with chest pain, right foot pain and right wrist pain. Patient reports fall with recent right wrist injury and dislocation involving the right thumb for which he placed it back himself.. ID has so far been ruled out. Patient however report significant right wrist pain with restricted movement 1. Chest pain ?ID was ruled out. Plans for patient to undergo subsequent evaluation as outpatient if pain recurs 2. Right wrist injury ?Imaging studies obtained on admission was negative for fracture however did demonstrate soft tissue swelling. Patient did request for orthopedic consultation -11/09/2020; patient seen his right wrist was placed in a splint. Patient was also seen in consultation by orthopedic surgery noted recommendations reviewed 3. Suspected acute gouty arthritis ?Patient is on allopurinol and colchicine did continue added steroids 4. Coronary artery disease ?With previous PCI/multiple stent placement. Patient is on dual antiplatelet therapy continued 5. Hypertension - Blood pressure controlled, home medications continued with dose adjustment as needed 6. GERD ?Patient on PPI 7. BPH ?Patient is on both finasteride as well as tamsulosin did continue 8. DVT prophylaxis ?Lovenox 9. Physical deconditioning - Requested for PT OT eval and social insurance adviser to assist with discharge planning Physical Exam Narrative GENERAL: cooperative HEENT: Atraumatic; EYES; Anicteric, Normal Conjunctiva NECK; supple, normal thyroid, RESPIRATORY: Diminished to auscultation CARDIOVASCULAR: Regular S1 S2, GI: soft, normoactive bowel sounds, : No Renal angle tenderness; EXTREMITIES: Right wrist in a splint MUSCULOSKELETAL: no muscle waisting NEURO: Awake; no lateralizing signs. SKIN: No Rash PSYCH; Flat affect Weight / BMI Weight Weight: 79.1 kg Body Mass Index (BMI) 27.3 ABG / Lab / Microbiology Data Result Diagrams: 11/08/20 06:40 11/08/20 06:40 Laboratory: Laboratory Results - last 24 hr 11/07/20 11/08/20 11/09/20 03:15 06:40 05:56 Diff Path Review Reviewed Reviewed Phosphorus 3.3 Magnesium 2.2 Meaningful Use Info Meaningful Use Diagnoses (Choose all that apply): None applicable Discharge Plan Admission Admit Date/Time: 11/07/20 05:02 Primary Reason for Your Visit: Chest pain, right wrist pain following a fall Attending Provider: Fabio Tovar Primary Care Provider: Herb Middleton Consulting Providers: Cristobal Glass Instructions Patient Instructions: ED Chest Pain, Noncardiac Discharge Orders/Prescriptions Prescriptions: New atorvastatin 40 mg Tablet 40 mg PO QHS Qty: 0 RF: 0 acetaminophen [Tylenol] 325 mg Tablet 650 mg PO Q6H PRN PRN (Reason: Pain Score 1-10/Temp > 100.7 F) Qty: 0 RF: 0 prednisone 20 mg Tablet 60 mg PO BREAKFAST 5 Days Qty: 0 RF: 0 sennosides-docusate sodium [Stool Softener-Stimulant Laxat] 8.6-50 mg Tablet 2 tab PO BID PRN PRN (Reason: Constipation) Qty: 0 RF: 0 melatonin 3 mg Tablet 3 mg PO QHS PRN PRN (Reason: Insomnia) Qty: 0 RF: 0 nitroglycerin 0.4 mg Tablet, Sublingual 0.4 mg sublingual Q5M PRN (Reason: Cardiac/Chest Pain) Qty: 0 RF: 0 ibuprofen 600 mg Tablet 600 mg PO Q8H PRN PRN (Reason: Pain 1-10 Or Fever) Qty: 0 RF: 0 alum-mag hydroxide-simeth [Mag-Al Plus Extra Strength] 400-400-40 mg/5 mL Joana pension 15 ml PO Q6H PRN PRN (Reason: Heartburn, indigestion) Qty: 0 RF: 0 oxycodone 5 mg Tablet 5 mg PO Q4H PRN PRN (Reason: Pain Score 6-10) 2 Days Qty: 10 RF: 0 Continued sucralfate 1 gram Tablet 500 mg PO Q6H RF: 0 allopurinol 100 mg Tablet 50 mg PO DAILY RF: 0 ascorbic acid (vitamin C) [Vitamin C] 500 mg Tablet 500 mg PO DAILY RF: 0 tamsulosin 0.4 mg Capsule 0.4 mg PO QHS RF: 0 pantoprazole 40 mg Tablet,Delayed Release (Dr/Ec) 40 mg PO DAILY RF: 0 aspirin 81 mg Tablet,Chewable 81 mg PO DAILY RF: 0 magnesium 250 mg Tablet 250 mg PO DAILY RF: 0 colchicine [Colcrys] 0.6 mg Tablet 0.6 mg PO BID RF: 0 lisinopril 2.5 mg Tablet 2.5 mg PO QHS RF: 0 acetylcysteine (bulk) Powder MISCELLANEOUS RF: 0 finasteride 5 mg Tablet 5 mg PO QHS RF: 0 cholecalciferol (vitamin D3) 125 mcg (5,000 unit) Tablet 125 mcg PO DAILY RF: 0 prasugrel 10 mg Tablet 10 mg PO DAILY RF: 0 iron RF: 0 alprazolam [Xanax] 0.5 mg Tablet 0.5 mg PO BID Qty: 4 RF: 0 Referrals / Follow Up: Herb Middleton MD [Primary Care Provider] - Disposition Disposition (needs filled in before D/C Order can be placed): Acute Care Hospital Charges/Coding Visit Charges OBSV E&M: 32910 Observation care discharge
--- NOTE | 2020-11-09 12:29 | CASEMGMT ---
Patient was approved to go to TCU. SW notified patient and his . SW gave patient's a TCU pamphlet and reminded them that he will have to quarantine for 14 days. SW told them that she may be able to visit one time and they will re-assess if there is a need for more. Velvet Gonzalez CRISIS WORKER [employer]
--- NOTE | 2020-11-09 13:08 | CASEMGMT ---
Addendum entered by Velvet Gonzalez 11/09/20 15:17: COVID test is done. Patient is ok for d/c to TCU. Velvet SETHI Original Note: Orders completed. Once patient has his COVID test and it is negative he can go to TCU. Plan: [facility] TCU under skilled level of care. Velvet SETHI
== END 2020-11-09 17:20 | disposition short-term general hospital (02) ==
LOC: ED 03:34 → PCU 05:06
PROVIDERS: Hospitalist; Nurse Practitioner Family; Admitting Provider Hospitalist; Emergency Provider Emergency Medicine; PCP Family Medicine; Visit Provider Internal Medicine
DX: R07.89 Other chest pain (principal); M10.9 Gout, unspecified; I25.10 Atherosclerotic heart disease of native coronary artery without angina pectoris; F10.20 Alcohol dependence, uncomplicated; E66.9 Obesity, unspecified; I25.2 Old myocardial infarction; E78.5 Hyperlipidemia, unspecified; I10 Essential (primary) hypertension; F03.90 Unspecified dementia, unspecified severity, without behavioral disturbance, psychotic disturbance, mood disturbance, and anxiety; F32.9 Major depressive disorder, single episode, unspecified; F41.9 Anxiety disorder, unspecified; G47.30 Sleep apnea, unspecified; M06.9 Rheumatoid arthritis, unspecified; K21.9 Gastro-esophageal reflux disease without esophagitis; N40.0 Benign prostatic hyperplasia without lower urinary tract symptoms; M17.11 Unilateral primary osteoarthritis, right knee; S63.501A Unspecified sprain of right wrist, initial encounter; W19.XXXA Unspecified fall, initial encounter; Y93.9 Activity, unspecified; Y92.9 Unspecified place or not applicable; Y99.9 Unspecified external cause status; Z79.899 Other long term (current) drug therapy; Z79.82 Long term (current) use of aspirin; Z87.820 Personal history of traumatic brain injury; Z68.29 Body mass index [BMI] 29.0-29.9, adult
CPT/HCPCS: 36415; 71045; 73110; 73564; 73610; 73630; 80048; 80061; 83735; 84100; 84484; 84550; 85025; 87426; 93005; 96372; 96374; 96375; 96376; 97162; 97166; 99218; 99285; G0378; J2405

== ENCOUNTER 2020-11-09 17:25 | Inpatient (IN) | payer MEDICARE, SELFPAY ==
[2020-01-05 11:37] VITALS: BMI 34.5
[2020-11-07 05:51] VITALS: BMI 27.3
--- NOTE | 2020-11-09 20:25 | HP.PCM_ITS ---
HPI - General General Date of Admission: 11/09/20 HPI Narrative 11/07/2020 SEBASTIEN BARON, is a 70 Male who presents to [facility] Department with chest pain. 11/07/2020 EKG normal sinus rhythm, left axis deviation. Chest pain. Right foot pain, right knee pain secondary to gout flare. Fell 1 week ago, hurt right wrist. Chest pain intermittent, no associated symptoms. Aspirin, Morphine, Zofran given for chest pain. 11/07/2020 Admit to Hospital. Rule out MA with serial cardiac enzymes. Start statin for history of coronary artery disease. Solu-Medrol, Colchicine, Allopurinol for gout attack. 11/07/2020 Change Solu-Medrol to Prednisone 60MG daily, continue Colchicine, stop Allopurinol, increase Pantoprazole to twice daily for acute gout flare. Cancel cardiology consult. 11/08/2020 MA ruled out. 11/08/2020 [place] consulted for right wrist pain. Recommended brace, therapy. 11/09/2020 PT/OT recommended Care Home Faciilty. 11/09/2020 Admit to TCU with debility, here for rehabilitation, strengthening, prior to discharge home with . [facility] Medical History Alcoholism Anemia Anxiety Atherosclerosis of coronary artery without angina pectoris Back pain BiPAP (biphasic positive airway pressure) dependence Chronic pain Coronary artery disease Dementia Depression Essential (primary) hypertension GI hemorrhage Gout History of stress test Hyperlipidemia Hypertension Myocardial infarct Non-smoker NSTEMI (non-ST elevated myocardial infarction) (04/13/18) Obesity Pancreatitis Pulmonary embolism Rheumatoid arthritis Sleep apnea Traumatic brain injury Home Medications acetylcysteine (bulk) ea MISCELLANEOUS 11/07/20 [History Last Taken Unknown] allopurinol 50 mg PO DAILY 11/07/20 [History Last Taken Unknown] ascorbic acid (vitamin C) [Vitamin C] 500 mg PO DAILY 11/07/20 [History Last Taken Unknown] aspirin 81 mg PO DAILY 11/07/20 [History Last Taken Unknown] cholecalciferol (vitamin D3) 125 mcg PO DAILY 11/07/20 [History Last Taken Unknown] colchicine [Colcrys] 0.6 mg PO BID 11/07/20 [History Last Taken Unknown] finasteride 5 mg PO QHS 11/07/20 [History Last Taken Unknown] iron 11/07/20 [History Last Taken Unknown] lisinopril 2.5 mg PO QHS 11/07/20 [History Last Taken Unknown] magnesium 250 mg PO DAILY 11/07/20 [History Last Taken Unknown] pantoprazole 40 mg PO DAILY 11/07/20 [History Last Taken Unknown] prasugrel 10 mg PO DAILY 11/07/20 [History Last Taken Unknown] sucralfate 500 mg PO Q6H 11/07/20 [History Last Taken Unknown] tamsulosin 0.4 mg PO QHS 11/07/20 [History Last Taken Unknown] acetaminophen [Tylenol] 650 mg PO Q6H PRN PRN #0 tab 11/09/20 [Rx Last Taken Unknown] alprazolam [Xanax] 0.5 mg PO BID 11/09/20 [History Last Taken Unknown] alum-mag hydroxide-simeth [Mag-Al Plus Extra Strength] 15 ml PO Q6H PRN PRN #0 ml 11/09/20 [Rx Last Taken Unknown] atorvastatin 40 mg PO QHS 11/09/20 [History Last Taken Unknown] ibuprofen 600 mg PO Q8H PRN PRN #0 tab 11/09/20 [Rx Last Taken Unknown] melatonin 3 mg PO QHS PRN PRN #0 tab 11/09/20 [Rx Last Taken Unknown] nitroglycerin 0.4 mg SUBLINGUAL Q5M PRN #0 tab 11/09/20 [Rx Last Taken Unknown] oxycodone 5 mg PO Q4H PRN PRN 2 Days #10 tab 11/09/20 [Rx Last Taken Unknown] prednisone 60 mg PO BREAKFAST 11/09/20 [History Last Taken Unknown] sennosides-docusate sodium [Stool Softener-Stimulant Laxat] 2 tab PO BID PRN PRN #0 tab 11/09/20 [Rx Last Taken Unknown] Allergy/AdvReac Type Severity Reaction Status Date / Time No Known Allergies Allergy Verified 08/10/20 15:50 Family History Mother CAD (coronary artery disease) Surgical History History of coronary artery stent placement (04/13/18) History of knee surgery History of repair of rotator cuff Hx of cholecystectomy Social History (Updated 11/09/20 @ 20:[address] Chirag Dickson MD) household members: spouse Smoking Status: Never smoker ROS Constitutional Constitutional: Denies chills, fever(s) or weight gain ENT HEENT: Denies headache(s), nasal congestion or nasal discharge Cardiovascular Cardiovascular: Denies chest pain or palpitations Respiratory/Chest Respiratory/Chest: Denies cough, excessive phlegm production or shortness of breath with exertion Gastrointestinal Gastrointestinal: Denies abdominal pain, nausea or vomiting Genitourinary Genitourinary: Denies dysuria Musculoskeletal Musculoskeletal: Denies joint pain or joint swelling Integumentary Integumentary: Denies rash or wounds Neurologic Neurologic: Denies focal weakness, numbness or tingling Psychiatric Psychiatric: Reports auditory hallucinations; Denies anxiety, depression, homicidal ideation or suicidal ideation Vital Signs Vital Signs Vital Signs: Weight Body Mass Index (BMI) 27.3 Physical Exam Const alert and oriented x3 General Appearance: cooperative HEENT normocephalic Eyes PERRL and EOMs intact bilaterally Neck supple, no JVD and no carotid bruits Resp normal respiratory effort, normal air movement and clear to auscultation bilaterally Cardio regular rate and regular rhythm GI normal to inspection, nondistended, normoactive bowel sounds, non-tender and non-distended Extremity normal capillary refill General Extremity: Negative for edema Skin no rashes or lesions noted General Skin Exam: no breakdown Psych affect normal Appearance: appropriate Assessment & Plan Assessment/Plan (1) Debility: (2) Chest pain: (3) Right wrist pain: (4) Gout: (5) Coronary artery disease: (6) Alcoholism: (7) Dementia: (8) Depression: (9) Hypertension: (10) Hyperlipidemia: (11) Traumatic brain injury: (12) Anxiety: (13) BPH (benign prostatic hyperplasia): (14) GERD (gastroesophageal reflux disease): PLAN: 70 year old male with below past medical history hospitalized for chest pain, MA ruled out, complicated by gout attack, right wrist injury, admitted to TCU with debility, here for rehabilitation, strengthening, prior to discharge home with . * Debility - PT/OT. * Pain - Tylenol 1000MG Q6H PRN pain (1-3), Motrin 600MG Q8H PRN pain (4-5), Oxycodone 5MG Q4H PRN pain (6-10). * Bowel - Miralax 17GM daily, Senna/colace 1 tablet twice daily, Dulcolax 10MG daily PRN. * Adult immunization - Administer Prevnar 13, Pneumovax 23, Fluzone, COVID19 vaccine as appropriate. * DVT prophylaxis - Hold on dual antiplatelet therapy. * Gout - Allopurinol 50MG daily, Colchicine 0.6MG BID, Prednisone taper. * Anxiety - Xanax 0.5MG twice daily, stable chronic medical terminologist use, GDR not recommended. * Vitamin C deficiency - Vitamin C 500MG daily. * Coronary artery disease status post stents - Lisinopril 2.5MG QHS, Effient 1 0MG daily, Aspirin 81MG daily, NTG 0.4MG Q5M PRN chest pain. * Hyperlipidemia - Atorvastatin 40MG QHS. * Vitamin D deficiency - D3 5000IU daily. * BPH - Finasteride 5MG daily, Tamsulosin 0.4MG QHS. * GERD - Pantoprazole 40MG daily, Sucralfate 0.5MG Q6H, Mylanta II 15ML Q6H PRN. * Hypomagnesemia - Magnesium 250MG daily. * Insomnia - Melatonin 3MG QHS PRN.
[2020-11-09] MEDS: oxyCODONE 5 MG Tablet PO (22:04)
[2020-11-09] MEDS: Lisinopril 2.5 MG Tablet PO (22:06)
[2020-11-09] MEDS: Atorvastatin Calcium 40 MG Tablet PO (22:06)
[2020-11-09] MEDS: Sucralfate 1 GM Tablet 0.5 GM PO (22:07)
[2020-11-09] MEDS: Tamsulosin HCl 0.4 MG Capsule PO (22:08)
[2020-11-09] MEDS: Finasteride 5 MG Tablet PO (22:08)
[2020-11-09 23:13] VITALS: PULSE 68; RESP 14
[2020-11-09 23:47] VITALS: BMI 27.3
[2020-11-10 00:01] VITALS: BP 129/68; PULSE 68; RESP 14; TEMP 36.2; O2SAT 97
--- NOTE | 2020-11-10 02:04 | PCA ---
Pt declined to wash up this evening, stating he had washed up earlier. em
[2020-11-10] MEDS: oxyCODONE 5 MG Tablet PO ×4 (03:59→22:07)
[2020-11-10] MEDS: Pantoprazole Sodium 40 MG Tablet PO (05:09)
[2020-11-10] MEDS: Cholecalciferol (VIT D3) 25 MCG TABLET (1,000 UNITS) 125 MCG PO (05:09)
[2020-11-10] MEDS: Colchicine 0.6 MG TABLET PO ×2 (05:09→17:01)
[2020-11-10] MEDS: Ascorbic Acid 500 MG Tablet PO (05:09)
[2020-11-10] MEDS: Magnesium Chloride 64 MG Delay Rel.Tablet 128 MG PO (05:10)
[2020-11-10] MEDS: Polyethylene Glycol 3350 17 GM PACKET PO (05:10)
[2020-11-10] MEDS: Senna/Docusate Sodium 1 Tablet PO ×2 (05:10→17:00)
[2020-11-10] MEDS: ALPRAZolam 0.5 MG Tablet PO ×2 (05:13→16:59)
[2020-11-10 05:51] LABS: Absolute Lymphocyte Count 2.12 X10^3/uL (0.83-4.51); Absolute Neutrophil Count 8.4 X10^3/uL (2.0-7.7); Basophil# 0.02 X10^3/uL; Basophil% 0.2 % (0-1); Eosinophil# 0.01 X10^3/uL; Eosinophils% 0.1 % (0-5); Hemoglobin 11.6 g/dL (13.0-16.5); Lymphocyte # 2.12 X10^3/ul (0.83-4.51); Lymphocyte % 18.5 % (19-41); Mean Corp Hgb Conc 32.2 g/dL (32-36); Mean Corpuscular Hgb 28.6 pg (27.0-32.0); Mean Corpuscular Volume 88.7 fL (80-94); Mean Platelet Vol. 9.3 fl (6.2-12.0); Monocyte# 0.93 X10^3/uL; Monocyte% 8.1 % (0-10); NRBC Flagged by Analyzer 0 % (0-5); Neutrophil # 8.35 X10^3/uL (2.7-7.7); Neutrophil % 72.7 % (47-70); Platelet Count 244 K/mm3 (150-450); RBC Distribution Width CV 14.8 % (11.6-14.6); RBC Distribution Width SD 47.9 fl (35.1-43.9); Red Blood Count 4.06 M/mm3 (4.6-6.2); White Blood Count 11.5 K/mm3 (4.4-11.0)
[2020-11-10 06:06] LABS: Anion Gap 5 (5-15); BUN 34 mg/dL (7-18); BUN/Creat Ratio 30.9 RATIO (10-20); Chloride 112 mmol/L (98-107); EST Glomerular Filtration Rate 70 mL/min (>60); Est Glom Filt Rate - Afr Amer 85 mL/min (>60); Estimated Creatinine Clearance 56.39 ml/min; Glucose 107 mg/dL (74-106); Potassium 3.8 mmol/L (3.5-5.1); Sodium Level 141 mmol/L (136-145)
[2020-11-10] MEDS: Sucralfate 1 GM Tablet 0.5 GM PO ×4 (07:26→22:02)
[2020-11-10] MEDS: predniSONE 20 MG Tablet 40 MG PO (08:04)
[2020-11-10] MEDS: Aspirin 81 MG TAB.CHEW PO (08:04)
[2020-11-10] MEDS: Allopurinol 100 MG Tablet 50 MG PO (09:14)
[2020-11-10] MEDS: Iron Polysaccharide Complex 150 MG CAPSULE PO (09:15)
[2020-11-10] MEDS: Tuberculin,Purif.prot.deriv. 50 TU/ML Vial 0.1 ML ID (11:22)
--- NOTE | 2020-11-10 11:28 | NURSING ---
CODE STATUS DISCUSSED WITH R' AND HIS . BOTH STATES R' WISHES TO HAVE DNR-CC ORDER. PURPLE BRACELET APPLIED.
[2020-11-10] MEDS: Acetaminophen 500 MG Tablet 1000 MG PO (12:53)
[2020-11-10 16:01] VITALS: BP 120/73; PULSE 78; RESP 18; TEMP 36.1; O2SAT 96
[2020-11-10] MEDS: Tamsulosin HCl 0.4 MG Capsule PO (22:03)
[2020-11-10] MEDS: Finasteride 5 MG Tablet PO (22:03)
[2020-11-10] MEDS: Lisinopril 2.5 MG Tablet PO (22:03)
[2020-11-10] MEDS: Atorvastatin Calcium 40 MG Tablet PO (22:03)
[2020-11-11 05:44] VITALS: BP 129/63; PULSE 67; RESP 18; TEMP 36.1; O2SAT 97
[2020-11-11] MEDS: Magnesium Chloride 64 MG Delay Rel.Tablet 128 MG PO (05:53)
[2020-11-11] MEDS: oxyCODONE 5 MG Tablet PO ×4 (05:54→21:37)
[2020-11-11] MEDS: Cholecalciferol (VIT D3) 25 MCG TABLET (1,000 UNITS) 125 MCG PO (05:54)
[2020-11-11] MEDS: Polyethylene Glycol 3350 17 GM PACKET PO (05:55)
[2020-11-11] MEDS: Sucralfate 1 GM Tablet 0.5 GM PO ×4 (05:55→21:37)
[2020-11-11] MEDS: ALPRAZolam 0.5 MG Tablet PO ×2 (05:55→16:59)
[2020-11-11] MEDS: Senna/Docusate Sodium 1 Tablet PO ×2 (05:55→17:00)
[2020-11-11] MEDS: Pantoprazole Sodium 40 MG Tablet PO (05:56)
[2020-11-11] MEDS: Ascorbic Acid 500 MG Tablet PO (05:56)
[2020-11-11] MEDS: Colchicine 0.6 MG TABLET PO ×2 (05:56→16:59)
[2020-11-11] MEDS: Iron Polysaccharide Complex 150 MG CAPSULE PO (08:44)
[2020-11-11] MEDS: Allopurinol 100 MG Tablet 50 MG PO (08:44)
[2020-11-11] MEDS: Aspirin 81 MG TAB.CHEW PO (08:45)
[2020-11-11] MEDS: predniSONE 20 MG Tablet 40 MG PO (08:45)
--- NOTE | 2020-11-11 11:35 | NURSING ---
Resident educated on the COVID vaccine and does not want to receive it at this time.
[2020-11-11] MEDS: Acetaminophen 500 MG Tablet 1000 MG PO ×2 (12:46→21:39)
[2020-11-11 12:48] VITALS: PULSE 72; RESP 16; O2SAT 94
[2020-11-11 16:10] VITALS: BP 135/66; PULSE 72; RESP 16; TEMP 36.6; O2SAT 97
--- NOTE | 2020-11-11 16:15 | PCM.PN.RX ---
Progress Note - Pharmacy Subjective: TCU ADMISSION Objective: Allergies No Known Allergies Allergy (Verified 08/10/20 15:50) Current Medications Generic Name Dose Route Start Last Admin Trade Name Thuanq PRN Reason Stop Dose Admin Acetaminophen 1,000 mg 11/09/20 20:43 11/11/20 12:46 Acetaminophen 500 Mg Tablet PO 1,000 mg Q6H PRN PRN Administration Pain Score 1-3 Al Hydroxide/Mg Hydroxide 15 ml 11/09/20 20:09 Mag Hydrox/Al Hydrox/Simeth 30 Ml Udc PO Q6H PRN PRN Heartburn, indigestion Allopurinol 50 mg 11/10/20 08:00 11/11/20 08:44 Allopurinol 100 Mg Tablet PO 50 mg BREAKFAST RONALDO Administration Alprazolam 0.5 mg 11/10/20 06:00 11/11/20 05:55 Alprazolam 0.5 Mg Tablet PO 0.5 mg BID RONALDO Administration Ascorbic Acid 500 mg 11/10/20 06:00 11/11/20 05:56 Ascorbic Acid 500 Mg Tablet PO 500 mg DAILY RONALDO Administration Aspirin 81 mg 11/10/20 08:00 11/11/20 08:45 Aspirin 81 Mg Tab.Chew PO 81 mg DAILYCM RONALDO Administration Atorvastatin Calcium 40 mg 11/09/20 22:00 11/10/20 22:03 Atorvastatin Calcium 40 Mg Tablet PO 40 mg QHS RONALDO Administration Bisacodyl 10 mg 11/09/20 20:42 Bisacodyl 5 Mg Tablet PO DAILY PRN Constipation Cholecalciferol 125 mcg 11/10/20 06:00 11/11/20 05:54 Cholecalciferol (Vit D3) 25 Mcg Tablet (1,000 Units) PO 125 mcg DAILY RONALDO Administration Colchicine 0.6 mg 11/10/20 06:00 11/11/20 05:56 Colchicine 0.6 Mg Tablet PO 0.6 mg BID RONALDO Administration Finasteride 5 mg 11/09/20 22:00 11/10/20 22:03 Finasteride 5 Mg Tablet PO 5 mg QHS RONALDO Administration Ibuprofen 600 mg 11/09/20 20:43 Ibuprofen 600 Mg Tablet PO Q8H PRN PRN Pain Score 4-5 Lisinopril 2.5 mg 11/09/20 22:00 11/10/20 22:03 Lisinopril 2.5 Mg Tablet PO 2.5 mg QHS RONALDO Administration Magnesium Chloride 128 mg 11/10/20 06:00 11/11/20 05:53 Magnesium Chloride 64 Mg Delay Rel.Tablet PO 128 mg DAILY RONALDO Administration Melatonin 3 mg 11/09/20 20:09 Melatonin 3 Mg Tablet PO QHS PRN PRN Insomnia Nitroglycerin 0.4 mg 11/09/20 20:24 Nitroglycerin (Inpatient Use) 0.4 Mg Tab.Subl SL Q5M PRN CARDIAC/CHEST PAIN Oxycodone HCl 5 mg 11/09/20 20:09 11/11/20 12:45 Oxycodone 5 Mg Tablet PO 5 mg Q4H PRN PRN Administration Pain Score 6-10 Pantoprazole Sodium 40 mg 11/10/20 06:00 11/11/20 05:56 Pantoprazole Sodium 40 Mg Tablet PO 40 mg DAILY RONALDO Administration Polyethylene Glycol 17 gm 11/10/20 06:00 11/11/20 05:55 Polyethylene Glycol 3350 17 Gm Packet PO 17 gm DAILY RONALDO Administration Polysaccharide Iron Complex 150 mg 11/10/20 08:00 11/11/20 08:44 Iron Polysaccharide Complex 150 Mg Capsule PO 150 mg DAILYCM RONALDO Administration Prasugrel 10 mg 11/10/20 06:00 11/11/20 05:53 Prasugrel Hydrochloride 10 Mg Tablet PO 10 mg DAILY RONALDO Administration Prednisone 50 mg 11/10/20 08:00 11/11/20 08:45 Prednisone 20 Mg Tablet PO 11/26/20 07:59 50 mg BREAKFAST RONALDO Administration Taper Senna/Docusate Sodium 1 tablet 11/10/20 06:00 11/11/20 05:55 Senna/Docusate Sodium 1 Tablet PO 1 tablet BID RONALDO Administration Sucralfate 0.5 gm 11/09/20 22:00 11/11/20 16:05 Sucralfate 1 Gm Tablet PO 0.5 gm 1HR_ACHS RONALDO Administration Tamsulosin HCl 0.4 mg 11/09/20 22:00 11/10/20 22:03 Tamsulosin Hcl 0.4 Mg Capsule PO 0.4 mg QHS RONALDO Administration Tuberculin PPD 0.1 ml 11/17/20 10:00 Tuberculin,Purif.Prot.Deriv. 50 Tu/Ml Vial ID 11/17/20 10:01 X1 ONE Problem List (Last Reviewed 06/15/21 @ 20:[address] Chirag Dickson MD) GERD (gastroesophageal reflux disease) (Acute) BPH (benign prostatic hyperplasia) (Acute) Anxiety (Acute) Traumatic brain injury (Acute) Hyperlipidemia (Acute) Hypertension (Chronic) Depression (Acute) Dementia (Acute) Alcoholism (Acute) Coronary artery disease (Acute) Gout (Acute) Right wrist pain (Acute) Chest pain (Acute) Debility (Acute) Vital Signs Temp Pulse Resp BP Pulse Ox 97.9 F 72 16 135/66 H 97 11/11/20 16:10 11/11/20 16:10 11/11/20 16:10 11/11/20 16:10 11/11/20 16:10 Oxygen Delivery Method Room Air Weight: 79.1 kg Body Mass Index (BMI) 27.3 Sodium 141 mmol/L (136-145) 11/10/20 05:43 Potassium 3.8 mmol/L (3.5-5.1) 11/10/20 05:43 Chloride 112 mmol/L (98-107) H 11/10/20 05:43 Carbon Dioxide 24.0 mmol/L (21.0-32.0) 11/10/20 05:43 Anion Gap 5 (5-15) 11/10/20 05:43 BUN 34 mg/dL (7-18) H 11/10/20 05:43 Creatinine 1.10 mg/dL (0.70-1.30) 11/10/20 05:43 Est GFR (MDRD) Af Amer 85 mL/min (>60) 11/10/20 05:43 Est GFR (MDRD) Non-Af 70 mL/min (>60) 11/10/20 05:43 BUN/Creatinine Ratio 30.9 RATIO (10-20) H 11/10/20 05:43 Glucose 107 mg/dL (74-106) H 11/10/20 05:43 Assessment/Plan: 1. Tylenol 1000mg PO Q6h PRN Pain 1-3, Ibuprofen 600mg PO Q8h PRN Pain 4-5, Oxycodone 5mg PO Q4h PRN Pain 6-10. Please continue to monitor for S/S increased/decreased pain, PRN medication usage. 2. CAD/ HLD: Aspirin 81mg PO Daily, Lipitor 40mg PO QHS, Lisinopril 2.5mg PO QHS, Nitrostat Q5m PRN chest pain, Effient 10mg PO Daily. Please continue to monitor for S/S bleeding/brusing, BP, pulse, electrolytes, lipid panel annually or sooner if clinically indicated. 3. Gout: Allopurinol 50mg PO Daily, Colchicine 0.6mg PO BID, Prednisone taper thru 11/26/20. Please continue to monitor for symptom improvement, BG, S/S agitation/restlessness/ insomnia while on steroid. 4. BPH: Finasteride 5mg PO QHS, Flomax 0.4mg PO QHS. Please continue to monitor for improvement in BPH symptoms, S/S urinary retention. 5. GERD: Protonix 40mg PO Daily, Carafate 0.5g PO ACHS, Mylanta 15mL PO Q6h PRN. Please continue to monitor for improvement in GERD symptoms, PRN medication usage. Please encourage non-pharmacologic therapies as well to decrease amount of GERD flare-ups. 6. Insomnia: Melatonin 3mg PO QHS PRN. Please continue to monitor for medication effectiveness, PRN usage. Can consider administering 2 hours prior to bedtime for optimal effect. 7. General Wellness: Vitamin C 500mg PO Daily, Vitamin D 125mcg PO Daily, Magnesium Chloride 128mg PO Daily, Ferrex 150mg PO Daily. Please continue to monitor. Psychotropic Medications: 8. Anxiety: Xanax 0.5mg PO BID. Please see note in H/P regarding GDR recommendation, thank you. Unnecessary Medications: None Bowel Regimen: Miralax 17g PO Daily, Senna/Docusate 1 tab PO BID, Dulcolax 10mg PO Daily PRN. Please continue to monitor for increased/decreased constipation and/or diarrhea. Date of Note:: 11/11/20
[2020-11-11] MEDS: Tamsulosin HCl 0.4 MG Capsule PO (21:37)
[2020-11-11] MEDS: Lisinopril 2.5 MG Tablet PO (21:38)
[2020-11-11] MEDS: Atorvastatin Calcium 40 MG Tablet PO (21:38)
[2020-11-11] MEDS: Finasteride 5 MG Tablet PO (21:38)
[2020-11-12] MEDS: oxyCODONE 5 MG Tablet PO ×4 (03:21→20:36)
[2020-11-12 06:12] VITALS: BP 107/74; PULSE 73; RESP 14; TEMP 35.8; O2SAT 97
[2020-11-12] MEDS: Cholecalciferol (VIT D3) 25 MCG TABLET (1,000 UNITS) 125 MCG PO (06:14)
[2020-11-12] MEDS: Sucralfate 1 GM Tablet 0.5 GM PO ×4 (06:15→20:39)
[2020-11-12] MEDS: Magnesium Chloride 64 MG Delay Rel.Tablet 128 MG PO (06:16)
[2020-11-12] MEDS: Senna/Docusate Sodium 1 Tablet PO ×2 (06:16→16:56)
[2020-11-12] MEDS: Ascorbic Acid 500 MG Tablet PO (06:16)
[2020-11-12] MEDS: Polyethylene Glycol 3350 17 GM PACKET PO (06:16)
[2020-11-12] MEDS: Pantoprazole Sodium 40 MG Tablet PO (06:16)
[2020-11-12] MEDS: Colchicine 0.6 MG TABLET PO ×2 (06:16→16:56)
[2020-11-12] MEDS: ALPRAZolam 0.5 MG Tablet PO ×2 (06:19→20:46)
[2020-11-12] MEDS: predniSONE 20 MG Tablet 40 MG PO (08:01)
[2020-11-12] MEDS: Iron Polysaccharide Complex 150 MG CAPSULE PO (08:02)
[2020-11-12] MEDS: Aspirin 81 MG TAB.CHEW PO (08:02)
[2020-11-12] MEDS: Allopurinol 100 MG Tablet 50 MG PO (08:02)
[2020-11-12 15:30] VITALS: BP 135/66; PULSE 93; RESP 15; TEMP 36.6; O2SAT 96
[2020-11-12] MEDS: Finasteride 5 MG Tablet PO (20:38)
[2020-11-12] MEDS: Atorvastatin Calcium 40 MG Tablet PO (20:40)
[2020-11-12] MEDS: Tamsulosin HCl 0.4 MG Capsule PO (20:40)
[2020-11-12] MEDS: Lisinopril 2.5 MG Tablet PO (20:42)
[2020-11-12 20:52] VITALS: BP 157/67
[2020-11-13] MEDS: oxyCODONE 5 MG Tablet PO ×5 (03:04→22:13)
[2020-11-13 06:04] VITALS: BP 129/57; PULSE 67; RESP 16; TEMP 36.3; O2SAT 97
[2020-11-13] MEDS: ALPRAZolam 0.5 MG Tablet PO ×2 (06:06→21:03)
[2020-11-13] MEDS: Sucralfate 1 GM Tablet 0.5 GM PO ×4 (06:07→21:04)
[2020-11-13] MEDS: Cholecalciferol (VIT D3) 25 MCG TABLET (1,000 UNITS) 125 MCG PO (06:07)
[2020-11-13] MEDS: Pantoprazole Sodium 40 MG Tablet PO (06:08)
[2020-11-13] MEDS: Colchicine 0.6 MG TABLET PO ×2 (06:08→17:05)
[2020-11-13] MEDS: Polyethylene Glycol 3350 17 GM PACKET PO (06:08)
[2020-11-13] MEDS: Senna/Docusate Sodium 1 Tablet PO ×2 (06:08→17:05)
[2020-11-13] MEDS: Ascorbic Acid 500 MG Tablet PO (06:10)
[2020-11-13] MEDS: Magnesium Chloride 64 MG Delay Rel.Tablet 128 MG PO (06:14)
[2020-11-13] MEDS: Aspirin 81 MG TAB.CHEW PO (08:06)
[2020-11-13] MEDS: predniSONE 20 MG Tablet 40 MG PO (08:06)
[2020-11-13] MEDS: Iron Polysaccharide Complex 150 MG CAPSULE PO (08:06)
[2020-11-13] MEDS: Allopurinol 100 MG Tablet 50 MG PO (08:07)
[2020-11-13] MEDS: Acetaminophen 500 MG Tablet 1000 MG PO (17:08)
[2020-11-13 18:38] VITALS: BP 122/67; PULSE 76; RESP 18; TEMP 36.9; O2SAT 95
[2020-11-13] MEDS: Lisinopril 2.5 MG Tablet PO (21:04)
[2020-11-13] MEDS: Tamsulosin HCl 0.4 MG Capsule PO (21:04)
[2020-11-13] MEDS: Finasteride 5 MG Tablet PO (21:04)
[2020-11-13] MEDS: Atorvastatin Calcium 40 MG Tablet PO (21:04)
[2020-11-14] MEDS: oxyCODONE 5 MG Tablet PO ×5 (02:35→22:36)
[2020-11-14 04:29] VITALS: BP 134/77; PULSE 75; RESP 18; TEMP 36.6; O2SAT 98
[2020-11-14] MEDS: Acetaminophen 500 MG Tablet 1000 MG PO ×2 (05:29→14:18)
[2020-11-14] MEDS: Colchicine 0.6 MG TABLET PO ×2 (05:31→18:19)
[2020-11-14] MEDS: Senna/Docusate Sodium 1 Tablet PO ×2 (05:32→18:19)
[2020-11-14] MEDS: Pantoprazole Sodium 40 MG Tablet PO (05:32)
[2020-11-14] MEDS: Polyethylene Glycol 3350 17 GM PACKET PO (05:32)
[2020-11-14] MEDS: Ascorbic Acid 500 MG Tablet PO (05:32)
[2020-11-14] MEDS: Cholecalciferol (VIT D3) 25 MCG TABLET (1,000 UNITS) 125 MCG PO (05:32)
[2020-11-14] MEDS: Magnesium Chloride 64 MG Delay Rel.Tablet 128 MG PO (05:32)
[2020-11-14] MEDS: Sucralfate 1 GM Tablet 0.5 GM PO ×4 (05:33→21:21)
[2020-11-14] MEDS: ALPRAZolam 0.5 MG Tablet PO ×2 (05:59→21:21)
[2020-11-14] MEDS: Aspirin 81 MG TAB.CHEW PO (08:51)
[2020-11-14] MEDS: predniSONE 20 MG Tablet 40 MG PO (08:51)
[2020-11-14] MEDS: Allopurinol 100 MG Tablet 50 MG PO (08:52)
[2020-11-14] MEDS: Iron Polysaccharide Complex 150 MG CAPSULE PO (08:54)
[2020-11-14 10:26] VITALS: PULSE 89; RESP 16; O2SAT 95
[2020-11-14 15:48] VITALS: BP 115/73; PULSE 89; RESP 16; TEMP 36.5; O2SAT 95
[2020-11-14] MEDS: Tamsulosin HCl 0.4 MG Capsule PO (21:23)
[2020-11-14] MEDS: Lisinopril 2.5 MG Tablet PO (21:23)
[2020-11-14] MEDS: Finasteride 5 MG Tablet PO (21:23)
[2020-11-14] MEDS: Atorvastatin Calcium 40 MG Tablet PO (21:23)
[2020-11-14 21:25] VITALS: BP 132/82; PULSE 67
[2020-11-15] MEDS: oxyCODONE 5 MG Tablet PO ×4 (03:04→20:01)
[2020-11-15] MEDS: Acetaminophen 500 MG Tablet 1000 MG PO ×3 (03:06→23:59)
[2020-11-15 06:14] VITALS: BP 112/81; PULSE 84; RESP 16; TEMP 35.9
[2020-11-15] MEDS: Cholecalciferol (VIT D3) 25 MCG TABLET (1,000 UNITS) 125 MCG PO (06:16)
[2020-11-15] MEDS: Senna/Docusate Sodium 1 Tablet PO ×2 (06:17→16:50)
[2020-11-15] MEDS: Pantoprazole Sodium 40 MG Tablet PO (06:17)
[2020-11-15] MEDS: Colchicine 0.6 MG TABLET PO ×2 (06:17→16:50)
[2020-11-15] MEDS: Ascorbic Acid 500 MG Tablet PO (06:18)
[2020-11-15] MEDS: Sucralfate 1 GM Tablet 0.5 GM PO ×4 (06:18→20:01)
[2020-11-15] MEDS: Polyethylene Glycol 3350 17 GM PACKET PO (06:18)
[2020-11-15] MEDS: ALPRAZolam 0.5 MG Tablet PO ×2 (06:24→20:01)
[2020-11-15] MEDS: Magnesium Chloride 64 MG Delay Rel.Tablet 128 MG PO (06:24)
[2020-11-15] MEDS: predniSONE 20 MG Tablet 40 MG PO (08:06)
[2020-11-15] MEDS: Allopurinol 100 MG Tablet 50 MG PO (08:06)
[2020-11-15] MEDS: Iron Polysaccharide Complex 150 MG CAPSULE PO (08:06)
[2020-11-15] MEDS: Aspirin 81 MG TAB.CHEW PO (08:06)
--- NOTE | 2020-11-15 12:15 | CASEMGMT ---
Social Work Telephone call from patient spouse, Rich. Rich request for discharge date to be set for 11/16/2020. Met with patient in room. Patient also request for discharge date to be set for 11/16/2020. Collaborating with medical team, all agreeable to discharge date. Physical and Occupational therapy recommending for patient to discharge to home with continued home health services. Patient agreeable to home health recommendations. Patient request for home health services to be set up through [facility] ([facility]). Patient declines for this social security assessor to provide patient with list of home health companies. Patient reports needs for platform attachment for walker. Patient reports to already have a front wheeled walker set up in the home. Patient spouse to provide transportation to home for patient. Telephone call to N, [facility]. Referral made for PT/OT. Order faxed along with clinical information. Telephone call to Michelle [facility]. Referral for platform attachment made. Order faxed along with face sheet. Platform attachment to be delivered to patient room prior to discharge. Proposed discharge date: 11/16/2020 Disposition: Home with spouse. Devin DAVIS, DASHA
--- NOTE | 2020-11-15 12:20 | CASEMGMT ---
Social Work Brief interview for mental status (BIMS) and resident mood assessment (PHQ-9) completed on this day. Devin DAVIS, HAILYS
--- NOTE | 2020-11-15 13:28 | CASEMGMT ---
[facility]. Devin DAVIS, DASHA
[2020-11-15 15:27] VITALS: BP 131/68; PULSE 84; RESP 18; TEMP 36.3; O2SAT 97
--- NOTE | 2020-11-15 18:57 | PCM.DC.SUM ---
Providers Date of Admission: 11/09/20 Primary Care Physician: Dr. Herb Middleton MD Reason For Visit: GOUT, CHEST PAIN Diagnosis Discharge Diagnosis (1) Debility: Status: Acute Code(s): R53.81 - Other malaise (2) Chest pain: Status: Acute Code(s): R07.9 - Chest pain, unspecified (3) Right wrist pain: Status: Acute Code(s): M25.531 - Pain in right wrist (4) Gout: Status: Acute Code(s): M10.9 - Gout, unspecified (5) Coronary artery disease: Status: Acute Code(s): I25.10 - Atherosclerotic heart disease of [place] coronary artery without angina pectoris (6) Alcoholism: Status: Acute Code(s): F10.20 - Alcohol dependence, uncomplicated (7) Dementia: Status: Acute Code(s): F03.90 - Unspecified dementia without behavioral disturbance (8) Depression: Status: Acute Code(s): F32.9 - Major depressive disorder, single episode, unspecified (9) Hypertension: Status: Chronic Code(s): I10 - Essential (primary) hypertension (10) Hyperlipidemia: Status: Acute Code(s): E78.5 - Hyperlipidemia, unspecified (11) Traumatic brain injury: Status: Acute Code(s): S06.9X9A - Unspecified intracranial injury with loss of consciousness of unspecified duration, initial encounter (12) Anxiety: Status: Acute Code(s): F41.9 - Anxiety disorder, unspecified (13) BPH (benign prostatic hyperplasia): Status: Acute Code(s): N40.0 - Benign prostatic hyperplasia without lower urinary tract symptoms (14) GERD (gastroesophageal reflux disease): Status: Acute Code(s): K21.9 - Gastro-esophageal reflux disease without esophagitis Medications at Discharge Home Medications acetylcysteine (bulk) ea MISCELLANEOUS 11/07/20 allopurinol 50 mg PO DAILY 11/07/20 ascorbic acid (vitamin C) [Vitamin C] 500 mg PO DAILY 11/07/20 aspirin 81 mg PO DAILY 11/07/20 cholecalciferol (vitamin D3) 125 mcg PO DAILY 11/07/20 colchicine [Colcrys] 0.6 mg PO BID 11/07/20 finasteride 5 mg PO QHS 11/07/20 iron 11/07/20 lisinopril 2.5 mg PO QHS 11/07/20 magnesium 250 mg PO DAILY 11/07/20 pantoprazole 40 mg PO DAILY 11/07/20 prasugrel 10 mg PO DAILY 11/07/20 sucralfate 500 mg PO Q6H 11/07/20 tamsulosin 0.4 mg PO QHS 11/07/20 alprazolam [Xanax] 0.5 mg PO BID 11/09/20 alum-mag hydroxide-simeth [Mag-Al Plus Extra Strength] 15 ml PO Q6H PRN PRN #0 ml 11/09/20 melatonin 3 mg PO QHS PRN PRN #0 tab 11/09/20 nitroglycerin 0.4 mg SUBLINGUAL Q5M PRN #0 tab 11/09/20 acetaminophen 1,000 mg PO Q6H PRN PRN #0 tab 11/15/20 atorvastatin 40 mg PO QHS 30 Days #30 tab 11/15/20 Hospital Course Operations None Procedures None Summary of Care Provided Minutes Spent on Discharge: 35 Hospital Course: 70 year old male with below past medical history hospitalized for chest pain, GA ruled out, complicated by gout attack, right wrist injury, admitted to TCU with debility, here for rehabilitation, strengthening, prior to discharge home with . Discharge home with 11/16/2020, [facility] PT/OT, [employer] platform attachment for walker. Physical Exam Const alert and oriented x3 General Appearance: cooperative HEENT normocephalic Eyes PERRL and EOMs intact bilaterally Neck supple, no JVD and no carotid bruits Resp normal respiratory effort, normal air movement and clear to auscultation bilaterally Cardio regular rate and regular rhythm GI normal to inspection, nondistended, normoactive bowel sounds, non-tender and non-distended Extremity normal capillary refill General Extremity: Negative for edema Skin no rashes or lesions noted General Skin Exam: no breakdown Psych affect normal Appearance: appropriate Weight / BMI Weight Weight: 79.1 kg Body Mass Index (BMI) 27.3 ABG / Lab / Microbiology Data Result Diagrams: 11/10/20 05:43 11/10/20 05:43 D/C Instructions Discharge Diet: No restrictions Discharge Activity: Return to Normal Activity and May Shower May resume sexual activity in: No Restrictions Weight Bearing Status: Weight bearing as tolerated Call your doctor if you observe: Fever of 101 or Higher, Inability to urinate, Inability to have a bowel movement, Shortness of breath, Fainting spells, Chest pain and Uncontrolled pain Additional Instructions: Discharge home with 11/16/2020, [facility] PT/OT, [employer] platform attachment for walker. Please Follow Up With: Herb Middleton MD When: 1 week. Meaningful Use Info Meaningful Use Diagnoses (Choose all that apply): None applicable Discharge Plan Admission Admit Date/Time: 11/09/20 17:25 Primary Reason for Your Visit: Debility Attending Provider: Chirag Dickson Chi Primary Care Provider: Herb Middleton Instructions Patient Instructions: ED Chest Pain, Noncardiac Additional Instructions / Restrictions: Discharge home with 11/16/2020, [facility] PT/OT, [employer] platform attachment for walker. Discharge Orders/Prescriptions Prescriptions: New acetaminophen 500 mg Tablet 1,000 mg PO Q6H PRN PRN (Reason: Pain Score 1-3) Qty: 0 RF: 0 Continued sucralfate 1 gram Tablet 500 mg PO Q6H RF: 0 allopurinol 100 mg Tablet 50 mg PO DAILY RF: 0 ascorbic acid (vitamin C) [Vitamin C] 500 mg Tablet 500 mg PO DAILY RF: 0 tamsulosin 0.4 mg Capsule 0.4 mg PO QHS RF: 0 pantoprazole 40 mg Tablet,Delayed Release (Dr/Ec) 40 mg PO DAILY RF: 0 aspirin 81 mg Tablet,Chewable 81 mg PO DAILY RF: 0 magnesium 250 mg Tablet 250 mg PO DAILY RF: 0 colchicine [Colcrys] 0.6 mg Tablet 0.6 mg PO BID RF: 0 lisinopril 2.5 mg Tablet 2.5 mg PO QHS RF: 0 acetylcysteine (bulk) Powder MISCELLANEOUS RF: 0 finasteride 5 mg Tablet 5 mg PO QHS RF: 0 cholecalciferol (vitamin D3) 125 mcg (5,000 unit) Tablet 125 mcg PO DAILY RF: 0 prasugrel 10 mg Tablet 10 mg PO DAILY RF: 0 iron RF: 0 melatonin 3 mg Tablet 3 mg PO QHS PRN PRN (Reason: Insomnia) Qty: 0 RF: 0 nitroglycerin 0.4 mg Tablet, Sublingual 0.4 mg sublingual Q5M PRN (Reason: Cardiac/Chest Pain) Qty: 0 RF: 0 alum-mag hydroxide-simeth [Mag-Al Plus Extra Strength] 400-400-40 mg/5 mL Suspension 15 ml PO Q6H PRN PRN (Reason: Heartburn, indigestion) Qty: 0 RF: 0 alprazolam [Xanax] 0.5 mg tablet 0.5 mg PO BID RF: 0 atorvastatin 40 mg tablet 40 mg PO QHS 30 Days Qty: 30 RF: 0 Discontinued acetaminophen [Tylenol] 325 mg Tablet 650 mg PO Q6H PRN PRN (Reason: Pain Score 1-10/Temp > 100.7 F) Qty: 0 RF: 0 sennosides-docusate sodium [Stool Softener-Stimulant Laxat] 8.6-50 mg Tablet 2 tab PO BID PRN PRN (Reason: Constipation) Qty: 0 RF: 0 ibuprofen 600 mg Tablet 600 mg PO Q8H PRN PRN (Reason: Pain 1-10 Or Fever) Qty: 0 RF: 0 oxycodone 5 mg Tablet 5 mg PO Q4H PRN PRN (Reason: Pain Score 6-10) 2 Days Qty: 10 RF: 0 prednisone 20 mg tablet 60 mg PO BREAKFAST RF: 0 Referrals / Follow Up: Herb Middleton MD [Primary Care Provider] - Disposition Disposition (needs filled in before D/C Order can be placed): Home Health Service
[2020-11-15] MEDS: MELATONIN 3 MG TABLET PO (20:01)
[2020-11-15] MEDS: Lisinopril 2.5 MG Tablet PO (20:03)
[2020-11-15] MEDS: Atorvastatin Calcium 40 MG Tablet PO (20:03)
[2020-11-15] MEDS: Finasteride 5 MG Tablet PO (20:04)
[2020-11-15] MEDS: Tamsulosin HCl 0.4 MG Capsule PO (20:04)
[2020-11-15 22:41] VITALS: PULSE 86; RESP 12
[2020-11-16] MEDS: oxyCODONE 5 MG Tablet PO ×3 (00:01→08:24)
[2020-11-16 05:28] VITALS: BP 171/84; PULSE 74; RESP 16; TEMP 36.4; O2SAT 95
[2020-11-16] MEDS: ALPRAZolam 0.5 MG Tablet PO (05:32)
[2020-11-16] MEDS: Polyethylene Glycol 3350 17 GM PACKET PO (05:32)
[2020-11-16] MEDS: Colchicine 0.6 MG TABLET PO (05:33)
[2020-11-16] MEDS: Pantoprazole Sodium 40 MG Tablet PO (05:33)
[2020-11-16] MEDS: Senna/Docusate Sodium 1 Tablet PO (05:33)
[2020-11-16] MEDS: Ascorbic Acid 500 MG Tablet PO (05:34)
[2020-11-16] MEDS: Sucralfate 1 GM Tablet 0.5 GM PO (05:34)
[2020-11-16] MEDS: Cholecalciferol (VIT D3) 25 MCG TABLET (1,000 UNITS) 125 MCG PO (05:35)
[2020-11-16] MEDS: Magnesium Chloride 64 MG Delay Rel.Tablet 128 MG PO (05:38)
[2020-11-16] MEDS: predniSONE 20 MG Tablet 40 MG PO (08:24)
[2020-11-16] MEDS: Aspirin 81 MG TAB.CHEW PO (08:24)
[2020-11-16] MEDS: Allopurinol 100 MG Tablet 50 MG PO (08:24)
[2020-11-16] MEDS: Iron Polysaccharide Complex 150 MG CAPSULE PO (08:24)
--- NOTE | 2020-11-16 08:33 | CASEMGMT ---
Social Work Discharge summary faxed to [facility]. Devin Linda MSW, DASHA
[2020-11-16 10:43] VITALS: BP 136/68; PULSE 72; TEMP 35.9
--- NOTE | 2020-11-22 13:15 | MDS.RN ---
Information for the mds was obtained from review of the clinical record, interview of resident, staff, and direct observation of resident's care.
== END 2020-11-16 11:30 | disposition home health service (06) | DRG 554 ==
PROVIDERS: Admitting Provider Family Medicine Geriatric Medicine; PCP Family Medicine; Visit Provider Family Medicine Geriatric Medicine
DX: M10.9 Gout, unspecified (principal); I25.10 Atherosclerotic heart disease of native coronary artery without angina pectoris; E78.5 Hyperlipidemia, unspecified; E55.9 Vitamin D deficiency, unspecified; N40.0 Benign prostatic hyperplasia without lower urinary tract symptoms; K21.9 Gastro-esophageal reflux disease without esophagitis; F41.9 Anxiety disorder, unspecified; F10.20 Alcohol dependence, uncomplicated; F03.90 Unspecified dementia, unspecified severity, without behavioral disturbance, psychotic disturbance, mood disturbance, and anxiety; F32.9 Major depressive disorder, single episode, unspecified; M06.9 Rheumatoid arthritis, unspecified; G47.30 Sleep apnea, unspecified; I10 Essential (primary) hypertension; Z87.820 Personal history of traumatic brain injury; I25.2 Old myocardial infarction; Z86.711 Personal history of pulmonary embolism; Z79.899 Other long term (current) drug therapy
CPT/HCPCS: 36415; 80048; 85025; 87635; 97110; 97116; 97162; 97166; 97530; 97535; 97802; U0005; U0003

== ENCOUNTER → 2021-04-26 14:15 | Outpatient (CLI) | payer MEDICARE, SELFPAY ==
[2020-01-05 11:37] VITALS: BMI 34.5
[2021-04-29 08:21] LABS: H.Pylori Breath Test Negative (Negative)
== END ==
PROVIDERS: PCP Family Medicine; Referring Provider Family Medicine; Visit Provider Family Medicine
DX: R10.13 Epigastric pain (principal)
CPT/HCPCS: 83013

== ENCOUNTER → 2021-05-05 10:10 | Outpatient (CLI) | payer MEDICARE, SELFPAY ==
[2020-01-05 11:37] VITALS: BMI 34.5
== END ==
PROVIDERS: PCP Family Medicine; Referring Provider Family Medicine; Visit Provider Family Medicine
DX: R00.1 Bradycardia, unspecified (principal)
CPT/HCPCS: 93225; 93226

== ENCOUNTER 2021-08-09 07:11 | Outpatient (CLI) | payer MEDICARE, SELFPAY ==
[2020-01-05 11:37] VITALS: BMI 34.5
--- NOTE | 2021-08-09 07:21 | CT_ITS ---
STUDY: CT ABDOMEN WITH CONTRAST REASON FOR EXAM: Male, 71 years old. PERSISTENT EPIGASTRIC PAIN, WEIGHT LOSS, NAUSEA RADIATION DOSAGE (If Supplied By Facility): CTDIvol = ( 14.30 ) mGy, DLP = ( 424.21 ) mGycm TECHNIQUE: Transaxial images were obtained post I.V. administration of 100 cc of ISOVUE-300, and with oral contrast. Sagittal and coronal images were reconstructed. Individualized dose optimization techniques were used for this CT. COMPARISON: CT of the abdomen and pelvis dated 08/10/20 FINDINGS: There is mild patchy groundglass opacity at the lung bases. The visualized portions of the heart are within normal limits. There are coronary artery calcifications. Normal liver. There are surgical clips in the gallbladder fossa consistent with a prior cholecystectomy. Normal spleen. Normal pancreas. Normal bilateral adrenal glands. Normal right kidney. Normal left kidney. Normal visualized stomach. The visualized bowel demonstrates no evidence of obstruction. There is a large amount of stool in the colon, consistent with constipation. There are atherosclerotic calcifications noted in the aorta. The abdominal aorta is normal in caliber. Normal inferior vena cava. Normal retroperitoneum. Normal abdominal wall. Normal osseous structures. CT/Abdomen WITH IV Contrast IMPRESSION: Please note that the pelvis was not imaged on this exam as only a CT of the abdomen was ordered. Mild patchy ground glass opacity at the lung bases, consistent with a mild infectious etiology. No bowel obstruction. Constipation. No urinary calculi. No hydronephrosis. Status post cholecystectomy. Atherosclerosis and coronary artery disease. Electronically Signed: El Alfredo MD at 8:05 EDT ,
[2021-08-09 07:51] LABS: CREATININE FINGERSTICK 1.25 mg/dL (0.70-1.30); EGFR FINGERSTICK > 60 mL/min (>60)
== END 2021-08-09 23:59 | disposition home or self-care (01) ==
PROVIDERS: PCP Family Medicine; Referring Provider Family Medicine; Visit Provider Family Medicine
DX: R10.9 Unspecified abdominal pain (principal); R63.4 Abnormal weight loss; R74.8 Abnormal levels of other serum enzymes
CPT/HCPCS: 74160; Q9967

== ENCOUNTER → 2021-09-29 | Outpatient (CLI) | payer MEDICARE, SELFPAY ==
[2020-01-05 11:37] VITALS: BMI 34.5
--- NOTE | 2021-09-29 15:48 | CT_ITS ---
STUDY: CTA CHEST REASON FOR EXAM: Male, 71 years old. DYSPNEA/EVELATED D DIMER RADIATION DOSAGE (If Supplied By Facility): CTDIvol = ( 9.69 ) mGy, DLP = ( 339.64 ) mGycm TECHNIQUE: The examination was performed with the intravenous administration of IV 100mL Isovue-370. Post-processing of the angiographic images was performed, with multiplanar reformation and 3D reconstruction. Individualized dose optimization techniques were used for this CT. COMPARISON: 07/07/2018 FINDINGS: Normal enhancement of the main pulmonary artery and right and left pulmonary arteries. Normal enhancement of the bilateral peripheral pulmonary arteries. There is no demonstrated pulmonary embolism. Normal thoracic aorta and visualized great vessels. There is no demonstrated aortic dissection. Normal heart and pericardium. Normal mediastinum. Normal hilar regions. Normal visualized trachea and bronchi. The lungs are well expanded. Bilateral patchy groundglass opacities consistent with subsegmental atelectasis or pneumonitis. Cystic bronchiectasis and bronchiolectasis in the left upper lobe. No noncalcified nodule or mass. Normal pleura. Normal chest wall structures. Normal osseous structures. Status post cholecystectomy. CT/CTA Chest W/WO Contrast IMPRESSION: 1. No CT evidence of pulmonary embolism. 2. Mild bilateral subsegmental atelectasis or pneumonitis. Commonly reported imaging features occur with COVID 19 and pneumonia are present. Other processes such as influenza pneumonia and organized pneumonia as can be seen in drug toxicity and connective tissue diseases can cause a similar imaging pattern. Electronically Signed: Iam Rangel MD at 16:39 EDT ,
[2021-09-29 16:05] LABS: CREATININE FINGERSTICK 0.7 mg/dL (0.70-1.30); EGFR FINGERSTICK > 60.0000 mL/min (>60)
== END | disposition home or self-care (01) ==
LOC: CT 15:45
PROVIDERS: PCP Family Medicine; Referring Provider Family Medicine; Visit Provider Family Medicine
DX: R06.00 Dyspnea, unspecified (principal); R79.89 Other specified abnormal findings of blood chemistry
CPT/HCPCS: 71275; Q9967

== ENCOUNTER 2022-08-28 13:15 | Observation (INO) | payer MEDICARE, SELFPAY ==
[2020-01-05 11:37] VITALS: BMI 34.5
[2022-08-28] VITALS (12 sets, daily range): BP systolic 137–176; BP diastolic 75–129; PULSE 66–80; RESP 15–18; TEMP 36.4–37.1; O2SAT 97–100; BMI 31.2; BMI 30.7
--- NOTE | 2022-08-28 13:48 | EKG12_ITS ---
Test Reason : CP Blood Pressure : / mmHG Vent. Rate : 072 BPM Atrial Rate : 072 BPM P-R Int : 122 ms QRS Dur : 112 ms QT Int : 388 ms P-R-T Axes : 022 -36 054 degrees QTc Int : 424 ms Normal sinus rhythm Left axis deviation Abnormal ECG Confirmed by RENEE NAZARIO, KALEE ([id number]), staff editor VANESSA DUQUE ([id number]) on 08/30/2022 9:46:48 AM Referred By: ADONAY Confirmed By:CONSTANZA DURAN MD
[2022-08-28] MEDS: Morphine 4 MG/ML Syringe 2 MG IV (13:56)
[2022-08-28 13:57] LABS: Absolute Lymphocyte Count 2.51 X10^3/uL (0.83-4.51); Absolute Neutrophil Count 4.7 X10^3/uL (2.0-7.7); Basophil# 0.04 X10^3/uL; Basophil% 0.5 % (0-1); Eosinophil# 0.17 X10^3/uL; Eosinophils% 2.1 % (0-5); Hemoglobin 13.3 g/dL (13.0-16.5); Lymphocyte # 2.51 X10^3/ul (0.83-4.51); Lymphocyte % 30.5 % (19-41); Mean Corpuscular Hgb 32.8 pg (27.0-32.0); Mean Corpuscular Volume 93.8 fL (80-94); Mean Platelet Vol. 10.1 fl (6.2-12.0); Monocyte# 0.71 X10^3/uL; Monocyte% 8.6 % (0-10); NRBC Flagged by Analyzer 0 % (0-5); Neutrophil # 4.73 X10^3/uL (2.7-7.7); Neutrophil % 57.4 % (47-70); Platelet Count 180 K/mm3 (150-450); RBC Distribution Width CV 12.9 % (11.6-14.6); RBC Distribution Width SD 44.6 fl (35.1-43.9); Red Blood Count 4.05 M/mm3 (4.6-6.2); White Blood Count 8.2 K/mm3 (4.4-11.0)
[2022-08-28] MEDS: Nitroglycerin SL (ED/IMG/CATH) 0.4 MG TABLET SL (14:01)
[2022-08-28 14:08] LABS: D-Dimer Quantitative (DVT/PE) 0.55 FEU/ug/m (0.27-0.49)
--- NOTE | 2022-08-28 14:10 | RAD_ITS ---
STUDY: X-RAY CHEST REASON FOR EXAM: Male, 72 years old. Chest pain TECHNIQUE: PA and lateral views of the chest. COMPARISON: Comparison is made with prior examination dated November 07, 2020. FINDINGS: Surgical clips are seen overlying the left cervical region. EKG electrodes are seen. Hyperinflation. The lungs are clear. There is no demonstrated pleural abnormality. Normal size heart. Normal mediastinum and radhames. Normal visualized pulmonary arteries. Normal visualized aortic arch and descending thoracic aorta. There are diffuse degenerative changes of the visualized thoracic spine. Normal visualized ribs, clavicles, and shoulders. There is no demonstrated abnormality of the visualized soft tissue structures of the upper abdomen. RAD/Chest PA and Lateral IMPRESSION: Hyperinflation. The lungs are clear. Electronically Signed: Haider Cleaning MD at 14:39 EDT ,
--- NOTE | 2022-08-28 14:10 | RAD_ITS ---
STUDY: X-RAY - LEFT SHOULDER REASON FOR EXAM: Male, 72 years old. Pain following injury. TECHNIQUE: 4 view(s) of the shoulder. COMPARISON: None. FINDINGS: There is moderate degenerative arthrosis of the glenohumeral articulation. There is hypertrophic osteoarthrosis of the acromioclavicular joint with inferior osseous spur formation. Normal acromion. There is no evidence of prior rotator cuff surgery. The soft tissue structures are unremarkable. Normal visualized pulmonary apex. RAD/Shoulder min 2 Views IMPRESSION: Moderate degree of osteoarthritis of the glenohumeral joint. Electronically Signed: Haider Cleaning MD at 14:40 EDT ,
[2022-08-28 14:15] LABS: Anion Gap 5 (5-15); BUN 26 mg/dL (7-18); BUN/Creat Ratio 19.4 RATIO (10-20); Calcium,Total 9.5 mg/dL (8.5-10.1); Chloride 110 mmol/L (98-107); Creatinine, Serum 1.34 mg/dL (0.70-1.30); EST Glomerular Filtration Rate 56 mL/min (>60); Est Glom Filt Rate - Afr Amer 67 mL/min (>60); Estimated Creatinine Clearance 44.97 ml/min; Glucose 87 mg/dL (74-106); Potassium 3.7 mmol/L (3.5-5.1); Sodium Level 142 mmol/L (136-145); Troponin-I HS (w/2H Reflex) 27 pg/mL (3.0-78.0)
--- NOTE | 2022-08-28 14:16 | ED.VIS.CHEST ---
HPI History of Present Illness Chief Complaint: Chest Pain Informant: patient Narrative Narrative: This patient is a sedentary 72-year-old with a history of heart disease and stents, he was out raking leaves and doing yard work today because it was nice outside, and he states he remembers feeling lightheaded and then waking up on the ground after passing out collapsing, and he noticed chest heaviness and some mild dyspnea at that time does not remember having that before passing out. States he fell onto his left shoulder he thinks, and injured that, he had a remote rotator cuff repair and he is concerned that he could have damaged it. He denies any other pain or injury. He denies any radiation of the chest discomfort. No nausea or vomiting. No recent illness except for 2 or 3 months ago he had COVID and recovered uneventfully from that. [facility] Medical History Alcoholism Anemia Anxiety Atherosclerosis of coronary artery without angina pectoris Back pain BiPAP (biphasic positive airway pressure) dependence Chronic pain Coronary artery disease Dementia Depression Essential (primary) hypertension GI hemorrhage Gout History of stress test Hyperlipidemia Hypertension Myocardial infarct Non-smoker NSTEMI (non-ST elevated myocardial infarction) (04/13/18) Obesity Pancreatitis Pulmonary embolism Rheumatoid arthritis Sleep apnea Traumatic brain injury Home Medications allopurinol 100 mg tablet 50 mg PO DAILY gout 11/07/20 [History Last Taken Unknown] aspirin 81 mg chewable tablet 81 mg PO DAILY thinner 11/07/20 [History Last Taken Unknown] cholecalciferol (vitamin D3) 125 mcg (5,000 unit) tablet 125 mcg PO DAILY supplement 11/07/20 [History Last Taken Unknown] colchicine 0.6 mg tablet (Colcrys) 0.6 mg PO BID gout 11/07/20 [History Last Taken Unknown] finasteride 5 mg tablet 5 mg PO QHS urine retention 11/07/20 [History Last Taken Unknown] tamsulosin 0.4 mg capsule 0.4 mg PO QHS urinary retention 11/07/20 [History Last Taken Unknown] alprazolam 0.5 mg tablet (Xanax) 0.5 mg PO BID anxiety 11/09/20 [History Last Taken Unknown] nitroglycerin 0.4 mg sublingual tablet 0.4 mg sublingual Q5M PRN Cardiac/Chest Pain #0 tabs 11/09/20 [Rx Last Taken Unknown] acetaminophen 500 mg tablet 1,000 mg PO Q6H PRN PRN Pain Score 1-3 #0 tabs 11/15/20 [Rx Last Taken Unknown] omeprazole 20 mg capsule,delayed release 20 mg PO BID GERD 08/28/22 [History Last Taken 08/27/22] Allergy/AdvReac Type Severity Reaction Status Date / Time No Known Allergies Allergy Verified 08/10/20 15:50 Family History Mother CAD (coronary artery disease) Surgical History History of coronary artery stent placement (04/13/18) History of knee surgery History of repair of rotator cuff Hx of cholecystectomy Social History household members: spouse Smoking Status: Never smoker ROS ROS ED Constitutional Constitutional ED: Denies chills or fever(s) Eyes Eyes: Denies change in vision or diplopia ENT ENT ED: Denies rhinorrhea or sore throat Cardiovascular Cardiovascular: Reports chest pain; Denies palpitations Respiratory/Chest Respiratory/Chest: Reports dyspnea; Denies cough Gastrointestinal Gastrointestinal: Denies abdominal pain, diarrhea, nausea or vomiting Genitourinary Genitourinary ED: Denies dysuria or hematuria Musculoskeletal Musculoskeletal: Reports extremity pain; Denies back pain or neck pain Integumentary Denies abscess or rash Neurologic Neurologic: Denies headache(s), paresthesias or weakness Psychiatric Psychiatric: Denies anxiety or suicidal thoughts EXAM Physical Exam Const Vital Signs: 08/28/22 13:15 08/28/22 13:22 08/28/22 14:01 Temperature 97.5 F L Temperature Source Temporal Pulse Rate 76 Respiratory Rate 15 Blood Pressure 150/84 H 154/129 H Blood Pressure Mean 106 Pulse Ox 99 Oxygen Delivery Method Room Air 08/28/22 13:48 08/28/22 14:31 Temperature Temperature Source Pulse Rate 80 Respiratory Rate 16 Blood Pressure 144/78 H Blood Pressure Mean 100 Pulse Ox 98 Oxygen Delivery Method Room Air Room Air Positive well nourished and well developed General Appearance ED: well developed and NAD HEENT Reports moist mucous membranes normocephalic and atraumatic Eyes PERRL and EOMs intact bilaterally Neck full ROM and supple Resp normal respiratory effort and clear to auscultation bilaterally Cardio regular rate, regular rhythm and no murmurs GI non-tender and non-distended Auscultation: normoactive bowel sounds Palpation: soft Back/Spine no CVA tenderness General Back: other FROM Extremity normal to inspection Extremity Narrative: Tenderness left proximal humerus. No deformities. Very limited range of motion due to pain. Neurovascular intact distally. Full range of other joints. No tenderness of the clavicle or acromioclavicular joint. General Extremety ED: Yes tenderness; Negative for edema or pulses abnormal General Extremity: Negative for edema or pulses abnormal Neuro oriented x3, CN's II-XII intact bilaterally and no sensory deficits noted Sensorium / Orientation: awake and alert Motor Exam: strength 5/5 throughout Skin no rashes or lesions noted and no wounds Heart Score History: Highly Suspicious ECG: Nonspecific Repolarization Age: >/= 65 years Risk Factors: >/= 3 Risk Factors or History of CAD Score: 7 MDM MDM MDM Narrative Medical decision making narrative: Patient's initial EKG shows less than [address] elevation in lead III only. There are no other leads that have this, and there are no reciprocal changes. This is subtly different than the prehospital EMS EKG which I reviewed as well, and that EKG is unchanged compared with his old EKG, all 3 of these showing a left axis. This does not meet any STEMI criteria. And considering a possible pulmonary embolus that having COVID puts a person at higher risk for, D-dimer was also sent, it was elevated, however when corrected for his age, it is well within normal limits enough to rule out pulmonary embolus acutely. His initial troponin is 27. He was given morphine, nitroglycerin, obtained chest x-ray and left shoulder films. The chest x-ray 2 view was unremarkable my interpretation, normal mediastinum no infiltrates, and the shoulder x-rays 4 views of my interpretation show no acute fracture or dislocation. His left shoulder pain is better after morphine, and his chest heaviness is better after 2 nitroglycerin, one of them given prehospital the other by us. Nitroglycerin paste was placed on his chest. Concern is that this could all be cardiac given his syncopal episode and his history, and sedentary lifestyle. Discussed with cardiology, who agrees not to treat this is a STEMI, his first set of enzymes were negative, agrees with admitting and following enzymes, consultation. Lab Data Attestation: I reviewed the patient's lab results. Labs: Laboratory Results - last 24 hr 08/28/22 08/28/22 08/28/22 13:25 13:25 13:25 WBC 8.2 RBC 4.05 L Hgb 13.3 Hct 38.0 L MCV 93.8 MCH 32.8 H MCHC 35.0 RDW Std Deviation 44.6 H RDW Coeff of Leeann 12.9 Plt Count 180 MPV 10.1 Immature Gran % (Auto) 0.900 Neut % (Auto) 57.4 Lymph % (Auto) 30.5 [place] % (Auto) 8.6 Eos % (Auto) 2.1 Baso % (Auto) 0.5 Absolute Neuts (auto) 4.7 Absolute Lymphs (auto) 2.51 Nucleated RBC % 0 D-Dimer Quant (PE/DVT) 0.55 H* Sodium 142 Potassium 3.7 Chloride 110 H Carbon Dioxide 27.0 Anion Gap 5 BUN 26 H Creatinine 1.34 H Estim Creat Clear Calc 44.97 Est GFR (MDRD) Af Amer 67 Est GFR (MDRD) Non-Af 56 L BUN/Creatinine Ratio 19.4 Glucose 87 Calcium 9.5 Troponin I High Sens 27 Rhythm Strip Rhythm Strip: Sinus Rhythm Rate: 70 Ectopy: None EKG Initial EKG: Attestation: I personally reviewed and interpreted this EKG as follows: Interpretation: Sinus Rhythm, LAFB and S-T Elevation (Less than 1 mm, lead III only; no ST depressions or reciprocal changes) Prior EKG tracings: available for review Prior: Changed (See above) Management Discussion w/another healthcare provider: Hospitalist and Shift Production Associate (Cardiology Dr. Salcedo) Discharge Plan Dx/Rx/DC Orders Clinical Impression: Unstable angina, Injury of shoulder, left, Syncope Disposition Disposition: Acute Care Hospital [facility]
[2022-08-28] MEDS: Nitroglycerin Oint 1 INCH PACKET 0.5 INCH TD ×2 (14:40→20:58)
--- NOTE | 2022-08-28 14:44 | HP.PCM_ITS ---
HPI - General General Date of Admission: 08/28/22 Date of Service: 08/28/22 Chief Complaint: Syncope, chest heaviness, dyspnea. 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, Obesity, BPH, GERD, JEFFERSON on BIPAP, HTN, HLD, CAD s/p PCI 2017, Hx VTE (PE, DVT), Rheumatoid arthritis, Hx TBI, Gout, Dementia unclear type with unclear behavioral disturbance history, Anxiety and Depression, Chronic anemia/iron deficiency an emia, EtOH Abuse, Hx COVID-19 Acute Viral Syndrome who presents to the [facility] ED on 08/28/22 with history of dyspnea, primarily with exertion following COVID illness several months prior with reportedly being outside and performing yard work specifically raking the leaves with onset lightheadedness and dizziness with resulting syncopal event unfortunately landing on his left shoulder with discomfort following, awakening with persistent dyspnea and mild chest heaviness prompting EMS call with administration of 4 baby aspirin and 1 nitroglycerin with no improvement in his symptoms prompting EMS transition to the ED for evaluation. Patient reports that when he had the onset of chest discomfort he f elt it was the same as his previous heart attacks and rated at 10 out of 10 at that time, currently upon evaluation in the ED he rates his discomfort 3 out of 10 in severity. He notes the discomfort in the midsternal region without radiation and described it as heaviness/tightness. ED calculated heart score 7. He notes that his L shoulder is bothering him more than anything, sharp pain 10/10 with any activity attempts, feels as though it was damaged/ripped. Work-up in the ED included T97.5, heart rate 76, BP 150/84, respiratory rate 15, 99% on room air, CBC with WBC 8.2, hemoglobin 13.3, platelet 180 without marked shift, D-dimer 0.55 however this is normal for age adjustment, BMP with chloride 110, BUN/Cr 26/1.34, troponin 27, chest x-ray with no acute cardiopulmonary findings/chronic changes w/ hyperinflation, plain film of the shoulder w/ moderate degree of osteoarthritis of the glenohumeral joint, EKG with initially [address] elevation in lead III with no other leads demonstrating this and no reciprocal changes subtly different than the prehospital EMS EKG which had been unchanged from prior. In the ED patient ministered initially sublingual nitroglycerin eventually transition to nitroglycerin 0.5 inch TD application, morphine 2 mg IV x1. 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 Salcedo and Hospitalist reviewed case with him with request for heparin drip start, agreed with ECHO and would evaluate for further plans. [facility] Medical History Alcoholism Anemia Anxiety Atherosclerosis of coronary artery without angina pectoris Back pain BiPAP (biphasic positive airway pressure) dependence Chronic pain Coronary artery disease Dementia Depression Essential (primary) hypertension GI hemorrhage Gout History of stress test Hyperlipidemia Hypertension Myocardial infarct Non-smoker NSTEMI (non-ST elevated myocardial infarction) (04/13/18) Obesity Pancreatitis Pulmonary embolism Rheumatoid arthritis Sleep apnea Traumatic brain injury Home Medications allopurinol 100 mg tablet 100 mg PO BID gout 11/07/20 [History Last Taken 08/27/22] aspirin 81 mg chewable tablet 81 mg PO DAILY thinner 11/07/20 [History Last Taken 08/28/22] cholecalciferol (vitamin D3) 125 mcg (5,000 unit) tablet 125 mcg PO DAILY supplement 11/07/20 [History Last Taken 08/23/22] colchicine 0.6 mg tablet (Colcrys) 0.6 mg PO BID gout 11/07/20 [History Last Taken Unknown] finasteride 5 mg tablet 5 mg PO QHS urine retention 11/07/20 [History Last Taken 08/27/22] tamsulosin 0.4 mg capsule 0.4 mg PO BID urinary retention 11/07/20 [History Last Taken 08/27/22] alprazolam 0.5 mg tablet (Xanax) 0.5 mg PO BID anxiety 11/09/20 [History Last Taken 08/27/22] nitroglycerin 0.4 mg sublingual tablet 0.4 mg sublingual Q5M PRN Cardiac/Chest Pain #0 tabs 11/09/20 [Rx Last Taken Unknown] acetaminophen 500 mg tablet 1,000 mg PO Q6H PRN PRN Pain Score 1-3 #0 tabs 11/15/20 [Rx Last Taken Unknown] omeprazole 20 mg capsule,delayed release 20 mg PO BID GERD 08/28/22 [History Last Taken 08/27/22] Allergy/AdvReac Type Severity Reaction Status Date / Time No Known Allergies Allergy Verified 08/10/20 15:50 Family History Mother CAD (coronary artery disease) other (No marked paternal family history including no HD, DM, CA, took no medications.) Surgical History History of coronary artery stent placement (04/13/18) History of knee surgery History of repair of rotator cuff Hx of cholecystectomy Social History (Updated 08/28/22 @ 15:[address] Rosey England MD) household members: spouse Smoking Status: Never smoker alcohol intake: former details: Sober since 2010. substance use type: does not use ROS ROS Narrative Admission Review of Systems: CONSTITUTIONAL: No weight loss, fever, chills, +weakness or fatigue. HEENT: Eyes: No visual loss, blurred vision, double vision or yellow sclerae. Ears, Nose, Throat: No hearing loss, sneezing, congestion, runny nose or sore throat. SKIN: No rash or itching, lesions, wounds. CARDIOVASCULAR: + Syncope, chest pain, chest pressure/heaviness/tightness, No palpitations, edema, orthopnea. RESPIRATORY: + Shortness of breath, No cough or sputum, wheezing, hemoptysis. GASTROINTESTINAL: No anorexia, nausea, vomiting or diarrhea, abdominal pain, melena, BRBPR. GENITOURINARY: No dysuria, frequency, urgency or retention. NEUROLOGICAL: + Syncope, dementia history. No headache, dizziness, paralysis, ataxia, numbness or tingling in the extremities, focal weakness, change in bowel or bladder control, seizure. MUSCULOSKELETAL: + muscle, back pain, joint pain or stiffness. HEMATOLOGIC: + anemia, bleeding or bruising. LYMPHATICS: No enlarged nodes. No history of splenectomy. PSYCHIATRIC: + history of depression or anxiety. ENDOCRINOLOGIC: No reports of sweating, cold or heat intolerance. No polyuria or polydipsia. ALLERGIES: No history of asthma, hives, eczema or rhinitis. Vital Signs Vital Signs Vital Signs: 08/28/22 13:15 08/28/22 13:22 08/28/22 14:01 Temperature 97.5 F L Temperature Source Temporal Pulse Rate 76 Respiratory Rate 15 Blood Pressure 150/84 H 154/129 H Blood Pressure Mean 106 Pulse Ox 99 Oxygen Delivery Method Room Air Oxygen Flow Rate (L/min) 08/28/22 13:48 08/28/22 14:40 08/28/22 14:43 Temperature Temperature Source Pulse Rate 69 69 Respiratory Rate 16 Blood Pressure 137/85 H Blood Pressure Mean 102 Pulse Ox 97 Oxygen Delivery Method Room Air Nasal Cannula Oxygen Flow Rate (L/min) 2 08/28/22 14:31 Temperature Temperature Source Pulse Rate 80 Respiratory Rate 16 Blood Pressure 144/78 H Blood Pressure Mean 100 Pulse Ox 98 Oxygen Delivery Method Room Air Oxygen Flow Rate (L/min) Weight Weight: 193 lb 12.581 oz Body Mass Index (BMI) 31.2 Physical Exam Narrative Physical Examination: General: Awake, alert, oriented x 3 and cooperative, seated upright in the ED bed, chest discomfort improved, currently rated 4 out of 10, still ongoing left shoulder pain, worse with movement attempts. Skin: Normal color, normal turgor, no icterus, no cyanosis. HEENT: AT/NC, EOMI, PERRLA, mildly dry MM, no carotid bruits or JVD noted. Lungs: Mildly diminished, greater bases, appropriate effort, no rales, ronchi or wheezing. Heart: Currently regular rate and rhythm; no gallop, rub audible. Abdomen: Soft, obese, NTTP, ND, mildly hyperactive BS, no HSM. Extremities: No cyanosis, clubbing, or edema, bilateral lower extremity neuropathic discomfort with discomfort with palpation which is chronic, left upper extremity with significant limited range of motion and movement against resistance with recent injury, peripheral pulses intact. Neurological: Patient awake, alert, oriented as, cognitive function intact; pupils equally reactive to light and accommodation, cranial nerves II-XII grossly normal, moving all 4 extremities except left upper extremity with limited range of motion given recent injury, strength moderately global decreased secondary to acute complaints. Psychiatric: Affect appears fatigued otherwise normal, no acute evidence of depressive or anxiety feelings. Results Lab / Micro Data Result Diagrams: 08/28/22 13:25 08/28/22 13:25 Labs: Laboratory Results - last 24 hr 08/28/22 13:25: WBC 8.2, RBC 4.05 L, Hgb 13.3, Hct 38.0 L, MCV 93.8, MCH 32.8 H, MCHC 35.0, RDW Std Deviation 44.6 H, RDW Coeff of Leeann 12.9, Plt Count 180, MPV 10.1, Immature Gran % (Auto) 0.900, Neut % (Auto) 57.4, Lymph % (Auto) 30.5, Craven % (Auto) 8.6, Eos % (Auto) 2.1, Baso % (Auto) 0.5, Absolute Neuts (auto) 4.7, Absolute Lymphs (auto) 2.51, Nucleated RBC % 0 08/28/22 13:25: Sodium 142, Potassium 3.7, Chloride 110 H, Carbon Dioxide 27.0, Anion Gap 5, BUN 26 H, Creatinine 1.34 H, Estim Creat Clear Calc 44.97, Est GFR (MDRD) Af Amer 67, Est GFR (MDRD) Non-Af 56 L, BUN/Creatinine Ratio 19.4, Glucose 87, Calcium 9.5, Troponin I High Sens 27 08/28/22 13:25: D-Dimer Quant (PE/DVT) 0.55 H* Rhythm Strip Rhythm Strip: Sinus Rhythm Rate: 70 Ectopy: None Radiology Impression Chest X-Ray 08/28/22 14:10 IMPRESSION: Hyperinflation. The lungs are clear. Electronically Signed: Haider Cleaning MD at 14:39 EDT , Shoulder X-Ray 08/28/22 14:10 IMPRESSION: Moderate degree of osteoarthritis of the glenohumeral joint. Electronically Signed: Haider Cleaning MD at 14:40 EDT , Assessment & Plan Assessment/Plan (1) Syncope: PLAN: Plan The patient is a 72 y/o M w/ PMHx: Suspected CKD stage II, Obesity, BPH, GERD, JEFFERSON on BIPAP, HTN, HLD, CAD s/p PCI 2018, Hx VTE (PE, DVT), Rheumatoid arthritis, Hx TBI, Gout, Dementia unclear type with unclear behavioral disturbance history, Anxiety and Depression, Chronic anemia/iron deficiency anemia, EtOH Abuse, Hx COVID-19 Acute Viral Syndrome who presents to the [facility] ED on 08/28/22 with history of dyspnea, primarily with exertion following COVID illness several months prior with reportedly being outside and performing yard work specifically raking the leaves with onset lightheadedness and dizziness with resulting syncopal event unfortunately landing on his left shoulder with discomfort following, awakening with persistent dyspnea and mild chest heaviness prompting EMS call with administration of 4 baby aspirin and 1 nitroglycerin with no improvement in his symptoms prompting EMS transition to the ED for evaluation. #1. Persistent exertional dyspnea with associated syncopal event and chest heaviness/unstable angina: Unclear etiololgy, EKG in ED w/ sinus rhythm without evidence of acute ischemia, CXR w/ no acute cardiopulmonary findings/chronic changes/hyperinflation, initial trop 27. Will admit to PCU, place on a monitored bed to assure no acute myocardial infarction with serial cardiac enzym es and EKGs. Will maintain on fall precautions, obtain admission orthostatic and AM orthostatic VS and increase hydration if appropriate with BP adjustments as needed. Will obtain ECHO. PT/OT consultation to ascertain stability and discharge needs as well as case management. Most recent echocardiogram noted 04/15/2018 with normal LV size, normal LV systolic function, EF 55%, stage I diastolic dysfunction with contrast injection performed at that time. Cardiology consulted, evaluation pending but discussed patient and will start heparin drip per their request. #2. Left shoulder discomfort status post fall with ongoing pain/limited mobility related: Plain film of the shoulder w/ moderate degree of osteoarthritis of the glenohumeral joint, remote history of rotator cuff repair x 2, has followed with Dr. Campbell prior but for LE orthopedic surgery intervention, if necessary will involve orthopedic surgery, PT and OT requested, PRN pain regimen. Suspect will need further imaging but will await further evaluation but will await reassessment following pain medication, icing, therapy assessments. #3. History of prior COVID-19 acute viral illness: Patient with history of dyspnea ongoing since COVID illness, certainly concerns associated with #1, continue evaluation work-up as noted although if no marked finding could benefit from outpatient PFT and pulmonary follow-up. #4. Mild renal insufficiency on CKD stage II primarily from review of records: Admission BUN/creatinine 26/1.34, baseline prior since 2019 primarily 1.1-1.2 although has vacillated during acute phase as it appears from review of records, will judiciously hydrate and repeat level in AM. #5. CAD: Status post PCI 2017, we will continue patient home aspirin, prasugrel, lisinopril, not on beta-shreya therapy, clarifying. #6. Chronic anemia, normocytic/iron deficiency anemia: Admission hemoglobin 13.3, prior baseline remotely primarily 11-12 last 10/2020, will continue to trend and continue iron supplementation. #7. Hypertension: We will continue patient home lisinopril regimen, will alter as needed pending orthostatic assessment and continue BP monitoring, as needed IV hydralazine. #8. Hyperlipidemia: We will continue patient on statin therapy, FLP in a.m. #9. Former EtOH Abuse: Patient with prior heavy alcohol abuse, sober since 2010, encourage continued sobriety. #10. Dementia unclear type with unclear behavioral disturbance history, unclear potentially related with reported prior TBI history: Complicates presentation, maintain on fall and aspiration precautions, therapy as well as case management consulted for discharge planning. #11. History of VTE: Patient with noted history DVT, PE previously, not chronically anticoagulated per current list. #12. GERD: We will continue patient home PPI, sucralfate. #13. BPH: We will continue patient home Flomax and finasteride regimen. #14. Anxiety and depression: We will continue patient home low-dose Xanax as needed regimen however would benefit from consideration SSRI, encourage continued outpatient follow-up and counseling. #15. Gout: We will continue patient home allopurinol and colchicine regimen. #16. Obesity: Weight loss and lifestyle changes encouraged. #17. Rheumatoid arthritis: Per current list not on any chronic regimen, encourage continued outpatient follow-up with rheumatology as needed. #18. JEFFERSON: BiPAP nightly. #19. DVT prophylaxis: Heparin drip per Cardiology request. #20. CODE status: Patient NEERAJ is his who is present and his daughter who is a secondary and living will is currently in place. Discussed CODE status at length including difference between FULL code, DNR-CCA and DNR-CC status. Following discussions about the differences in these status, requested Full Code although this was clarified several times. Advanced Care Planning Face to Face Time: 16 minutes. Admission Evaluation Time spent evaluating chart, patient history, patient evaluation, care planning and discussion with specialists: 60 minutes. Charges/Coding Visit Charges Inpatient E&M: 22930 Init Hosp L2 Procedures Hospitalists Procedures: 78131 Advncd Care Plan 30 Min
--- NOTE | 2022-08-28 14:57 | EKG12_ITS ---
Test Reason : CP Blood Pressure : / mmHG Vent. Rate : 064 BPM Atrial Rate : 064 BPM P-R Int : 138 ms QRS Dur : 112 ms QT Int : 406 ms P-R-T Axes : 059 -36 065 degrees QTc Int : 418 ms Normal sinus rhythm Left axis deviation Abnormal ECG When compared with ECG of 28-AUG-2022 13:19, MANUAL COMPARISON REQUIRED, DATA IS UNCONFIRMED Confirmed by RENEE NAZARIO, KALEE ([id number]), acquisitions editor VANESSA DUQUE ([id number]) on 08/30/2022 10:11:18 AM Referred By: SOHAIL Confirmed By:CONSTANZA DURAN MD
--- NOTE | 2022-08-28 14:57 | NURSING ---
PCU OBS WHITE SYNCOPE, CP
[2022-08-28 15:38] LABS: Alcohol, Blood (Medical)-Serum < 3.0 mg/dL
[2022-08-28 15:45] LABS: Phosphorus 2.2 mg/dL (2.5-4.9)
--- NOTE | 2022-08-28 15:46 | ECHOCS_ITS ---
Reason For Study: Dyspnea/SOB Procedure This was a 2D Doppler, Color Flow transthoracic echocardiogram. The study was technically difficult. Contrast injection was performed. Exam performed portable in patient room. Left Ventricle Normal LV size. The estimated ejection fraction is 55 %. Normal diastology for age. There is a small sized posterior wall motion abnormality with hypokinesis of the segments. Right Ventricle Normal RV size. Normal systolic function. Atria Normal left atrium. Normal right atrium. No doppler evidence for ASD. Mitral Valve There is no mitral valve stenosis. No mitral valve insufficiency. Tricuspid Valve There is no tricuspid stenosis. Unable to estimate RV systolic pressure due to inadequate jet, pulmonary artery pressure probably normal. Aortic Valve Trisinus/trileaflet aortic valve. There is no aortic stenosis. No aortic valve insufficiency. Pulmonic Valve There is no pulmonic valvular stenosis. No pulmonic valve insufficiency. Great Vessels Normal aortic root. Pericardium/Pleural No pericardial effusion. Medication Diluted definity 3ml given slow IV push to enhance endocardial definition. MMode/2D Measurements & Calculations LVIDd: 4.2 cm IVSd: 1.4 cm Ao root diam: 3.4 cm LVIDs: 3.2 cm LVPWd: 1.1 cm LA dimension: 3.7 cm RVDd: 3.5 cm FS: 23.1 % LAV(MOD-sp4): 53.7 ml LA A4 area: 19.9 cm2 Time Measurements MV dec time: 0.30 sec Doppler Measurements & Calculations MV E max jono: 55.3 cm/sec Lat Peak E' Jono: 11.6 cm/sec Med Peak E' Jono: 10.0 cm/sec MV A max jono: 93.1 cm/sec E/E' lat: 4.8 E/E' med: 5.5 MV E/A: 0.59 MV V2 max: 111.2 cm/sec MV P1/2t max jono: 76.5 cm/sec Ao V2 max: 105.7 cm/sec MV max P.9 mmHg MV P1/2t: 119.1 msec Ao max P.5 mmHg MV V2 mean: 53.0 cm/sec MV dec slope: 188.1 cm/sec2 Ao V2 mean: 76.6 cm/sec MV mean P.4 mmHg Ao mean P.7 mmHg MV V2 VTI: 34.3 cm MVA(P1/2t): 1.8 cm2 Ao V2 VTI: 25.2 cm LV V1 max: 99.7 cm/sec PA V2 max: 97.5 cm/sec LV V1 max P.0 mmHg PA V2 mean: 67.3 cm/sec ECHO/Echo Complete W/ Contrast Interpretation Summary The estimated ejection fraction is 55 %. There is a small sized posterior wall motion abnormality with hypokinesis of th e segments. Ordering Physician: Rosey England Referring Physician: Herb Wolf Performed By: Olegario Terrazas RCS
[2022-08-28 15:47] LABS: Prothrombin Time (Protime)PT. 12.5 SECONDS (11.7-14.9)
[2022-08-28 15:53] LABS: Reflex Troponin-HS? (from REC) Y
[2022-08-28] MEDS: Acetaminophen 325 MG Tablet 650 MG PO ×2 (16:17→23:44)
[2022-08-28] MEDS: oxyCODONE 5 MG Tablet PO (16:17)
[2022-08-28 16:26] LABS: Troponin-I HS 38 pg/mL (3.0-78.0)
[2022-08-28] MEDS: 0.9% Normal Saline 1,000 ML 100 ML IV (16:49)
[2022-08-28] MEDS: 0.9% Saline Lock 10 ML Syringe IV (16:49)
[2022-08-28] MEDS: Heparin Injection (Vial) 5,000 UNIT/ML VIAL 6000 UNIT IV (17:13)
[2022-08-28] MEDS: HEPARIN/D5w 25,000 UNITS 25,000 UNITS/250 ML IV.SOLN. 12 UNITS CONT INF (17:16)
[2022-08-28 20:06] LABS: Troponin-I HS 42 pg/mL (3.0-78.0)
--- NOTE | 2022-08-28 20:41 | NURSING ---
Tele monitor quit and would not restart after several attempts to get it started. Lost the data. Attached a new monitor.
[2022-08-28] MEDS: Pantoprazole Sodium 20 MG Tablet PO (21:01)
[2022-08-28] MEDS: Tamsulosin HCl 0.4 MG Capsule PO (21:01)
[2022-08-28] MEDS: Allopurinol 100 MG Tablet PO (21:01)
[2022-08-28] MEDS: Finasteride 5 MG Tablet PO (21:01)
[2022-08-28] MEDS: Colchicine 0.6 MG TABLET PO (21:01)
[2022-08-28] MEDS: Morphine 2 MG/ML Syringe IV (21:07)
[2022-08-28] MEDS: ALPRAZolam 0.5 MG Tablet PO (21:07)
[2022-08-29] MEDS: Morphine 2 MG/ML Syringe IV ×4 (01:40→15:32)
[2022-08-29 01:42] VITALS: BP 173/92; PULSE 76
[2022-08-29] MEDS: Nitroglycerin Oint 1 INCH PACKET 0.5 INCH TD ×2 (01:42→05:39)
--- NOTE | 2022-08-29 02:25 | NURSING ---
Pt refusing Bipap tonight, pt requests to wear oxygen in replacement for bipap use.
--- NOTE | 2022-08-29 03:35 | NURSING ---
Heparin gtt running at 9ml/hr, pt decreased by 3ml/hr d/t ptt being > 140. keypad locked
[2022-08-29 04:00] VITALS: BP 153/83; PULSE 64; RESP 18; TEMP 36.3; O2SAT 95
--- NOTE | 2022-08-29 04:07 | CPS ---
Pt does wear bipap at home but does not want hospital bipap, pt wanted O2 2L via nasal cannula for night time use instead.
[2022-08-29 04:39] VITALS: BMI 31.1
[2022-08-29 05:39] VITALS: BP 159/68; PULSE 83
[2022-08-29] MEDS: 0.9% Saline Lock 10 ML Syringe IV ×3 (07:58→15:32)
[2022-08-29] MEDS: Aspirin 81 MG TAB.CHEW PO (08:04)
[2022-08-29] MEDS: Colchicine 0.6 MG TABLET PO (08:09)
[2022-08-29] MEDS: Pantoprazole Sodium 20 MG Tablet PO (08:10)
[2022-08-29] MEDS: Allopurinol 100 MG Tablet PO (08:10)
[2022-08-29] MEDS: Tamsulosin HCl 0.4 MG Capsule PO (08:10)
[2022-08-29] MEDS: ALPRAZolam 0.5 MG Tablet PO (08:15)
[2022-08-29] MEDS: Ondansetron 4 MG/2 ML Vial IV (08:18)
[2022-08-29] MEDS: Senna/Docusate Sodium 1 Tablet 2 TABLET PO (08:20)
[2022-08-29 08:24] VITALS: O2SAT 99
[2022-08-29 09:38] LABS: Absolute Lymphocyte Count 2.15 X10^3/uL (0.83-4.51); Absolute Neutrophil Count 4.1 X10^3/uL (2.0-7.7); Basophil# 0.06 X10^3/uL; Basophil% 0.8 % (0-1); Eosinophil# 0.21 X10^3/uL; Eosinophils% 2.9 % (0-5); Hematocrit 42.5 % (40-54); Hemoglobin 14.3 g/dL (13.0-16.5); Lymphocyte # 2.15 X10^3/ul (0.83-4.51); Lymphocyte % 29.7 % (19-41); Mean Corp Hgb Conc 33.6 g/dL (32-36); Mean Corpuscular Hgb 32.4 pg (27.0-32.0); Mean Corpuscular Volume 96.4 fL (80-94); Mean Platelet Vol. 9.5 fl (6.2-12.0); Monocyte# 0.65 X10^3/uL; NRBC Flagged by Analyzer 0 % (0-5); Neutrophil % 56.6 % (47-70); Platelet Count 153 K/mm3 (150-450); RBC Distribution Width CV 12.9 % (11.6-14.6); Red Blood Count 4.41 M/mm3 (4.6-6.2); White Blood Count 7.2 K/mm3 (4.4-11.0)
[2022-08-29 09:54] LABS: ALB/GLOB Ratio 1.2 RATIO (0.9-2.4); AST(SGOT) 23 U/L (15-37); Alanine Aminotransfer ALT/SGPT 24 U/L (16-61); Albumin, Serum 3.8 g/dL (3.2-5.0); Alkaline Phosphatase 59 U/L (45-117); Anion Gap 3 (5-15); BUN 20 mg/dL (7-18); Calcium,Total 9.2 mg/dL (8.5-10.1); Chloride 109 mmol/L (98-107); Creatinine, Serum 1.11 mg/dL (0.70-1.30); EST Glomerular Filtration Rate 69 mL/min (>60); Est Glom Filt Rate - Afr Amer 84 mL/min (>60); Estimated Creatinine Clearance 54.28 ml/min; Globulin 3.2 g/dL (2.2-4.2); Glucose 100 mg/dL (74-106); Partial Thromboplast Time 65.5 Seconds (24.1-36.2); Potassium 3.5 mmol/L (3.5-5.1); Sodium Level 139 mmol/L (136-145)
[2022-08-29 10:00] VITALS: BP 160/92; PULSE 69; RESP 16; TEMP 36.4; O2SAT 95
--- NOTE | 2022-08-29 10:35 | PCM.CONS.C ---
Assessment & Plan Assessment/Plan (1) Syncope: PLAN: 3 sets of cardiac enzymes have been negative. Patient had chest pain right after the syncopal episode but not before or after. Telemetry revealed PVCs but no significant SVT, V. tach or pauses. Discussed options with the patient in detail. Discussed cardiac catheterization and stress testing. After discussing with the patient the risks and benefits of all the approaches we are proceeding with stress testing. Continue aspirin. Unclear why patient is not on a statin and should be started on it unless he has any contraindications. HPI Consult Data Date of Consult: 08/29/22 HPI Narrative Reason for Consultation: Syncope HPI Narrative: SEBASTIEN BARON, is a 72 M who presents after syncopal episode. Patient was working in his yard for about an hour and a half raking leaves. 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 His witnessed it. He landed on his left shoulder which he has had problems with even before. When patient woke up from his syncopal episode he had some chest pressure. Patient has history of coronary artery disease status post CA x3. First episode was about 10 years ago. Patient apparently had stents every time. He does not recall how many he has total. He states that he was told that he is running out of options as far as stents are concerned and also has a stent within the stent. We do not have details of these procedures. Prior to getting PCI patient has always had chest pressure. Except right after his syncopal episode he has not had chest pressure. He says he does get shortness of breath with exertion. Patient's 3 sets of cardiac enzymes have been negative. Patient's creatinine was slightly elevated upon arrival which has come down to his baseline after IV fluids. Orthostatic blood pressure measurements were negative for significant orthostatic hypotension. Review of systems: All systems reviewed. All else is negative except that in [facility] Medical History Alcoholism Anemia Anxiety Atherosclerosis of coronary artery without angina pectoris Back pain BiPAP (biphasic positive airway pressure) dependence Chronic pain Coronary artery disease Dementia Depression Essential (primary) hypertension GI hemorrhage Gout History of stress test Hyperlipidemia Hypertension Myocardial infarct Non-smoker NSTEMI (non-ST elevated myocardial infarction) (04/13/18) Obesity Pancreatitis Pulmonary embolism Rheumatoid arthritis Sleep apnea Traumatic brain injury Home Medications allopurinol 100 mg tablet 100 mg PO BID gout 11/07/20 [History Last Taken 08/27/22] aspirin 81 mg chewable tablet 81 mg PO DAILY thinner 11/07/20 [History Last Taken 08/28/22] cholecalciferol (vitamin D3) 125 mcg (5,000 unit) tablet 125 mcg PO DAILY supplement 11/07/20 [History Last Taken 08/23/22] colchicine 0.6 mg tablet (Colcrys) 0.6 mg PO BID gout 11/07/20 [History Last Taken Unknown] finasteride 5 mg tablet 5 mg PO QHS urine retention 11/07/20 [History Last Taken 08/27/22] tamsulosin 0.4 mg capsule 0.4 mg PO BID urinary retention 11/07/20 [History Last Taken 08/27/22] alprazolam 0.5 mg tablet (Xanax) 0.5 mg PO BID anxiety 11/09/20 [History Last Taken 08/27/22] nitroglycerin 0.4 mg sublingual tablet 0.4 mg sublingual Q5M PRN Cardiac/Chest Pain #0 tabs 11/09/20 [Rx Last Taken Unknown] acetaminophen 500 mg tablet 1,000 mg PO Q6H PRN PRN Pain Score 1-3 #0 tabs 11/15/20 [Rx Last Taken Unknown] omeprazole 20 mg capsule,delayed release 20 mg PO BID GERD 08/28/22 [History Last Taken 08/27/22] Allergy/AdvReac Type Severity Reaction Status Date / Time No Known Allergies Allergy Verified 08/10/20 15:50 Family History Mother CAD (coronary artery disease) Family History other Surgical History History of coronary artery stent placement (04/13/18) History of knee surgery History of repair of rotator cuff Hx of cholecystectomy Social History (Updated 08/28/22 @ 15:[address] Rosey England MD) household members: spouse Smoking Status: Never smoker alcohol intake: former details: Sober since 2010. substance use type: does not use Physical Exam Const alert and oriented x3 HEENT normocephalic Eyes no scleral icterus Resp normal respiratory effort Cardio regular rate Skin no rashes or lesions noted Psych mental status grossly normal Risk Stratification Risk Stratification Applicable: No Charges/Coding Visit Charges Inpatient E&M: 08859 Init Hosp L2 Objective Data Vital Signs: Vital Signs Temp Pulse Resp BP Pulse Ox O2 Del Method O2 Flow Rate 97.4 F L 83 18 159/68 H 99 Room Air 2 08/29/22 04:00 08/29/22 05:39 08/29/22 04:00 08/29/22 05:39 08/29/22 08:24 08/29/22 08:24 08/28/22 16:00 Oxygen Flow Rate (L/min) 2 Oxygen Delivery Method Room Air Weight: 192 lb 10.944 oz Body Mass Index (BMI) 31.1 Intake & Output: Intake and Output for Last 24 Hours 08/27/22 08/28/22 08/29/22 23:59 23:59 23:59 Intake Total 1099.8 / 1099.8 Balance 1099.8 / 1099.8 Lab / Micro Data Result Diagrams: 08/29/22 09:28 08/29/22 09:28 Labs: Laboratory Results - last 24 hr 08/28/22 13:25: WBC 8.2, RBC 4.05 L, Hgb 13.3, Hct 38.0 L, MCV 93.8, MCH 32.8 H, MCHC 35.0, RDW Std Deviation 44.6 H, RDW Coeff of Leeann 12.9, Plt Count 180, MPV 10.1, Immature Gran % (Auto) 0.900, Neut % (Auto) 57.4, Lymph % (Auto) 30.5, [place] % (Auto) 8.6, Eos % (Auto) 2.1, Baso % (Auto) 0.5, Absolute Neuts (auto) 4.7, Absolute Lymphs (auto) 2.51, Nucleated RBC % 0 08/28/22 13:25: Sodium 142, Potassium 3.7, Chloride 110 H, Carbon Dioxide 27.0, Anion Gap 5, BUN 26 H, Creatinine 1.34 H, Estim Creat Clear Calc 44.97, Est GFR (MDRD) Af Amer 67, Est GFR (MDRD) Non-Af 56 L, BUN/Creatinine Ratio 19.4, Glucose 87, Calcium 9.5, Troponin I High Sens 27 08/28/22 13:25: D-Dimer Quant (PE/DVT) 0.55 H* 08/28/22 13:25: PT 12.5, INR 1.0, APTT 26.0 08/28/22 15:00: Phosphorus 2.2 L, Magnesium 2.0 08/28/22 15:00: Ethyl Alcohol < 3.0 08/28/22 16:04: Troponin I High Sens 38 08/28/22 19:22: Troponin I High Sens 42 08/28/22 23:30: APTT 140.0 H* 08/29/22 09:28: WBC 7.2, RBC 4.41 L, Hgb 14.3, Hct 42.5, MCV 96.4 H, MCH 32.4 H, MCHC 33.6, RDW Std Deviation 46.0 H, RDW Coeff of Leeann 12.9, Plt Count 153, MPV 9.5, Immature Gran % (Auto) 1.000 H, Neut % (Auto) 56.6, Lymph % (Auto) 29.7, [place] % (Auto) 9.0, Eos % (Auto) 2.9, Baso % (Auto) 0.8, Absolute Neuts (auto) 4.1, Absolute Lymphs (auto) 2.15, Nucleated RBC % 0 08/29/22 09:28: Sodium 139, Potassium 3.5, Chloride 109 H, Carbon Dioxide 27.0, Anion Gap 3 L, BUN 20 H, Creatinine 1.11, Estim Creat Clear Calc 54.28, Est GFR (MDRD) Af Amer 84, Est GFR (MDRD) Non-Af 69, BUN/Creatinine Ratio 18.0, Glucose 100, Calcium 9.2, Total Bilirubin 0.50, AST 23, ALT 24, Alkaline Phosphatase 59, Total Protein 7.0, Albumin 3.8, Globulin 3.2, Albumin/Globulin Ratio 1.2 08/29/22 09:28: APTT 65.5 H Rhythm Strip Rhythm Strip: Sinus Rhythm Rate: 70 Ectopy: None Cardiology Labs/Tests 08/28/22 13:25: WBC 8.2, RBC 4.05 L, Hgb 13.3, Hct 38.0 L, MCV 93.8, MCH 32.8 H, MCHC 35.0, Plt Count 180, MPV 10.1, Immature Gran % (Auto) 0.900, Neut % (Auto) 57.4, Lymph % (Auto) 30.5, [place] % (Auto) 8.6, Eos % (Auto) 2.1, Baso % (Auto) 0.5, Absolute Neuts (auto) 4.7, Nucleated RBC % 0 08/28/22 13:25: Sodium 142, Potassium 3.7, Chloride 110 H, Carbon Dioxide 27.0, Anion Gap 5, BUN 26 H, Creatinine 1.34 H, Est GFR (MDRD) Af Amer 67, Est GFR (MDRD) Non-Af 56 L, BUN/Creatinine Ratio 19.4, Glucose 87, Calcium 9.5 08/28/22 13:25: D-Dimer Quant (PE/DVT) 0.55 H* 08/28/22 13:25: PT 12.5, INR 1.0, APTT 26.0 08/28/22 15:00: Phosphorus 2.2 L, Magnesium 2.0 08/28/22 23:30: APTT 140.0 H* 08/29/22 09:28: WBC 7.2, RBC 4.41 L, Hgb 14.3, Hct 42.5, MCV 96.4 H, MCH 32.4 H, MCHC 33.6, Plt Count 153, MPV 9.5, Immature Gran % (Auto) 1.000 H, Neut % (Auto) 56.6, Lymph % (Auto) 29.7, [place] % (Auto) 9.0, Eos % (Auto) 2.9, Baso % (Auto) 0.8, Absolute Neuts (auto) 4.1, Nucleated RBC % 0 08/29/22 09:28: Sodium 139, Potassium 3.5, Chloride 109 H, Carbon Dioxide 27.0, Anion Gap 3 L, BUN 20 H, Creatinine 1.11, Est GFR (MDRD) Af Amer 84, Est GFR (MDRD) Non-Af 69, BUN/Creatinine Ratio 18.0, Glucose 100, Calcium 9.2, Total Bilirubin 0.50 08/29/22 09:28: APTT 65.5 H Rhythm: EKG: ECHO: Stress Test: Cardiac Cath: PCI: CT Surgery: Holter monitor: EPS: PPM: CXR: Chest CT Scan: Radiography Diagnostic Testing: Radiology Impression Chest X-Ray 08/28/22 14:10 IMPRESSION: Hyperinflation. The lungs are clear. Electronically Signed: Haider Cleaning MD at 14:39 EDT , Shoulder X-Ray 08/28/22 14:10 IMPRESSION: Moderate degree of osteoarthritis of the glenohumeral joint. Electronically Signed: Haider Cleaning MD at 14:40 EDT ,
--- NOTE | 2022-08-29 12:18 | PCM.PN.HOSP ---
Subjective Subjective Doing well, no issues overnight. Denies any chest pain or shortness of breath. No further syncopal episodes Objective Data Objective Data Vital Signs: Vital Signs Temp Pulse Resp BP Pulse Ox O2 Del Method O2 Flow Rate 97.6 F L 69 16 160/92 H 95 Room Air 2 08/29/22 10:00 08/29/22 10:00 08/29/22 10:00 08/29/22 10:00 08/29/22 10:00 08/29/22 10:00 08/28/22 16:00 Oxygen Flow Rate (L/min) 2 Oxygen Delivery Method Room Air Weight: 192 lb 10.944 oz Body Mass Index (BMI) 31.1 Intake & Output: Intake and Output for Last 24 Hours 08/28/22 08/29/22 08/30/22 03:59 03:59 03:59 Intake Total 1099.8 / 1099.8 Balance 1099.8 / 1099.8 Lab / Micro Data Result Diagrams: 08/29/22 09:28 08/29/22 09:28 Labs: Laboratory Results - last 24 hr 08/28/22 13:25: WBC 8.2, RBC 4.05 L, Hgb 13.3, Hct 38.0 L, MCV 93.8, MCH 32.8 H, MCHC 35.0, RDW Std Deviation 44.6 H, RDW Coeff of Leeann 12.9, Plt Count 180, MPV 10.1, Immature Gran % (Auto) 0.900, Neut % (Auto) 57.4, Lymph % (Auto) 30.5, [place] % (Auto) 8.6, Eos % (Auto) 2.1, Baso % (Auto) 0.5, Absolute Neuts (auto) 4.7, Absolute Lymphs (auto) 2.51, Nucleated RBC % 0 08/28/22 13:25: Sodium 142, Potassium 3.7, Chloride 110 H, Carbon Dioxide 27.0, Anion Gap 5, BUN 26 H, Creatinine 1.34 H, Estim Creat Clear Calc 44.97, Est GFR (MDRD) Af Amer 67, Est GFR (MDRD) Non-Af 56 L, BUN/Creatinine Ratio 19.4, Glucose 87, Calcium 9.5, Troponin I High Sens 27 08/28/22 13:25: D-Dimer Quant (PE/DVT) 0.55 H* 08/28/22 13:25: PT 12.5, INR 1.0, APTT 26.0 08/28/22 15:00: Phosphorus 2.2 L, Magnesium 2.0 08/28/22 15:00: Ethyl Alcohol < 3.0 08/28/22 16:04: Troponin I High Sens 38 08/28/22 19:22: Troponin I High Sens 42 08/28/22 23:30: APTT 140.0 H* 08/29/22 09:28: WBC 7.2, RBC 4.41 L, Hgb 14.3, Hct 42.5, MCV 96.4 H, MCH 32.4 H, MCHC 33.6, RDW Std Deviation 46.0 H, RDW Coeff of Leeann 12.9, Plt Count 153, MPV 9.5, Immature Gran % (Auto) 1.000 H, Neut % (Auto) 56.6, Lymph % (Auto) 29.7, [place] % (Auto) 9.0, Eos % (Auto) 2.9, Baso % (Auto) 0.8, Absolute Neuts (auto) 4.1, Absolute Lymphs (auto) 2.15, Nucleated RBC % 0 08/29/22 09:28: Sodium 139, Potassium 3.5, Chloride 109 H, Carbon Dioxide 27.0, Anion Gap 3 L, BUN 20 H, Creatinine 1.11, Estim Creat Clear Calc 54.28, Est GFR (MDRD) Af Amer 84, Est GFR (MDRD) Non-Af 69, BUN/Creatinine Ratio 18.0, Glucose 100, Calcium 9.2, Total Bilirubin 0.50, AST 23, ALT 24, Alkaline Phosphatase 59, Total Protein 7.0, Albumin 3.8, Globulin 3.2, Albumin/Globulin Ratio 1.2 08/29/22 09:28: APTT 65.5 H Radiography Diagnostic Testing: Radiology Impression Chest X-Ray 08/28/22 14:10 IMPRESSION: Hyperinflation. The lungs are clear. Electronically Signed: Hadier Cleaning MD at 14:39 EDT , Shoulder X-Ray 08/28/22 14:10 IMPRESSION: Moderate degree of osteoarthritis of the glenohumeral joint. Electronically Signed: Haider Cleaning MD at 14:40 EDT , Rhythm Strip Rhythm Strip: Sinus Rhythm Rate: 70 Ectopy: None Physical Exam Narrative General: Alert, Oriented x3, Cooperative, No apparent distress HEENT: Atraumatic, PERRLA, EOMI, Normocephalic Oral: Moist Mucosa Neck: Supple, No JVD Lungs: Diminished, Normal air movement, No rhonchi, No wheeze, No rales Cardiovascular: Regular rate, Regular Rhythm, Normal S1, Normal S2, No murmurs Abdomen: Soft, Non Tender, Non-Distended, No Hepato-splenomegaly Extremities: No edema, Capillary Refill Less than 3 Seconds Skin: No rashes, No breakdown Musculoskeletal: No Tenderness to Palpation of Joints or Extremities Neurological: Moves all extremities, sensation intact Psych/Mental Status: Normal Affect, Appropriate Assessment & Plan Assessment/Plan (1) Syncope: PLAN: Plan 1. Persistent exertional dyspnea as well as syncope and possible unstable angina/CAD status post stent/HTN/HLD ? Troponins are negative ? We will consult cardiology for stress test versus cath ? Echo is pending ? Continue with his home blood pressure medications ? Orthostatic vital signs are negative ?We will start him on a statin as it does not appear that he is on 1 at home ? Currently on a heparin drip 2. Left shoulder discomfort after fall ? Film of the shoulder is negative for fracture, there is some osteoarthritis ? He did have his rotator cuff repaired twice in the past. We will have him follow-up with outpatient Ortho 3. GERD ? Stable ? Continue with PPI 4. BPH ? Stable ? Continue Flomax 5. Gout ? Stable ? Continue with allopurinol and colchicine 6. Anxiety ? Stable ? Continue Xanax DVT: Heparin drip Charges/Coding Visit Charges Inpatient E&M: 88495 Subs Hosp L2
--- NOTE | 2022-08-29 13:49 | CHAPLAIN ---
Type of Pastoral Visit _x__ Initial Visit ___ Follow-up Visit ___ On-call Visit ___ General Patient Visit ___ Spiritual Assessment ___ Family Conference ___ Bereavement ___ Rapid Response ___ Code Blue ___ Other (describe below) Pastoral Care Referral From _x__ Patient ___ Family ___ Nurse ___ Physician ___ Business Dean ___ Inseamer ___ Other (describe below) Sacrament/Intervention _x__ Active listening ___ Anointing ___ Judaism ___ Bereavement ___ Communion _x__ Ludmila exploration ___ _x__ Life review _x__ Prayer ___ Reconciliation ___ Sacrament of Sick _x__ Supportive presence ___ Wedding ___ Other (describe below) Pastoral Comments initially patient states that he is fine; spouse says they are waiting on results and will probably go home today; after more time and conversation the pt begins to admit more of his issues and needs that revolve around his past, decisions, feelings, doubts, etc.; encouraged pt to realize that these issues are important too and need to have support for them too; prayer and presence were welcomed
--- NOTE | 2022-08-29 15:00 | STRESSREP ---
Stress Test Report Date: 08/29/2022 Procedure: Pharmacologic stress nuclear imaging study Indications: Syncope Consent: Per the patient Procedure: The patient underwent pharmacologic (Regadenoson) evaluation with a peak heart rate of 93 beats per minute (62%predicted maximal heart rate) and a peak blood pressure of 150/82 mmHg. The baseline ECG demonstrated sinus rhythm with PVCs. EKG during lexiscan infusion revealed no significant ischemic changes. EKG post infusion revealed no significant ischemic changes [There were no cardiac dysrhythmias pretest, during pharmacologic infusion, or recovery]. [There was no complaint of chest discomfort during pharmacologic infusion or recovery]. The examination was discontinued secondary to completion of protocol. Impression: 1. Lexiscan stress test test is negative for Lexiscan infusion induced EKG changes of ischemia. 2. Lexiscan stress test test is negative for Lexiscan infusion induced chest pain. 3. Results of the nuclear portion of the test is as below Myocardial perfusion imaging study: Technique: The patient was injected with 14.3 millicuries of technetium 99m Cardiolite and subsequently rest SPECT Cardiolite nuclear imaging was obtained in the horizontal long, vertical long, and short axis views. The patient underwent pharmacologic [Regadenoson 0.4mg] evaluation. Please see above for details. The patient was injected with 44.6 millicuries of technetium 99m Cardiolite and subsequently stress SPECT Cardiolite nuclear imaging was obtained in the horizontal long, vertical long, and short axis views. A gated Cardiolite study at peak stress was obtained. Interpretation: Rest and stress SPECT Cardiolite nuclear imaging status post realignment, normalization, and attenuation correction demonstrate moderately severe fixed defect in the basal lateral wall and a mild fixed defect in the apex. These findings likely suggest prior basal lateral myocardial infarction and likely apical thinning, normal variant. Gated images could not be obtained and hence ejection fraction could not be estimated. Impression: 1. There is no evidence of significant ischemia. There is evidence of prior basal lateral myocardial infarction. 2. Estimated ejection fraction cannot be estimated as gating could not be performed in this patient. This note was generated with [employer] software. It may contain incorrect words, spelling, and punctuation that were not noted in checking the note before signing.
--- NOTE | 2022-08-29 15:23 | PCM.DC ---
Discharge Instructions Diet Discharge Diet: Low fat / Low cholesterol Activity Discharge Activity: Return to Normal Activity Dressing / Incision Call your doctor if you observe: Fever of 101 or Higher, Shortness of breath, Dizziness, Fainting spells, Swelling in the ankles, Chest pain and Increased palpitations (irregular heartbeat) Follow Up Care Test Results: Test results from this visit will be discussed in further detail at your follow-up appointment, if applicable. Discharge Plan Admission Admit Date/Time: 08/28/22 14:50 Attending Provider: Stevan Max Primary Care Provider: Herb Wolf Consulting Providers: Nabil Salcedo ; Rosey England Instructions Additional Instructions / Restrictions: Please follow-up with your slat basket maker helper machine within the next couple of weeks for outpatient follow-up. You are being started on a new blood pressure medication called metoprolol which helps with your heart rates if you do feel dizzy or lightheadedness please take your blood pressure and call your doctor. Discharge Orders/Prescriptions Prescriptions: New atorvastatin 40 mg Tablet 40 mg PO QHS Qty: 30 0RF metoprolol tartrate 25 mg tablet 25 mg PO BID Qty: 60 0RF Continued allopurinol 100 mg Tablet 100 mg PO BID tamsulosin 0.4 mg Capsule 0.4 mg PO BID aspirin 81 mg Tablet,Chewable 81 mg PO DAILY colchicine [Colcrys] 0.6 mg Tablet 0.6 mg PO BID finasteride 5 mg Tablet 5 mg PO QHS cholecalciferol (vitamin D3) 125 mcg (5,000 unit) Tablet 125 mcg PO DAILY nitroglycerin 0.4 mg Tablet, Sublingual 0.4 mg sublingual Q5M PRN (Reason: Cardiac/Chest Pain) Qty: 0 0RF alprazolam [Xanax] 0.5 mg tablet 0.5 mg PO BID acetaminophen 500 mg Tablet 1,000 mg PO Q6H PRN PRN (Reason: Pain Score 1-3) Qty: 0 0RF omeprazole 20 mg Capsule,Delayed Release(Dr/Ec) 20 mg PO BID Referrals / Follow Up: Herb Wolf DO [Primary Care Provider] - Within 1 Week Disposition Disposition (needs filled in before D/C Order can be placed): Home, Self Care
--- NOTE | 2022-08-29 15:28 | DS.PCM_ITS ---
Providers Date of Admission: 08/28/22 Primary Care Physician: Dr. Herb Wolf, DO Consultations 08/28/22 15:46 Consult: Cardiology Routine Consulting Provider: Nabil Salcedo Reason for Consult: Chest pain, syncope, dyspnea EMERGENT Consult: No MD Notified: Yes Date Notified: 08/28/22 Time Notified: 14:56 Method of Notification: ED Physician Initiated Reason For Visit: SYNCOPE, CP, DYSPNEA Diagnosis Discharge Diagnosis (1) Syncope: Status: Acute Code(s): R55 - Syncope and collapse Medications at Discharge Home Medications allopurinol 100 mg tablet 100 mg PO BID gout 11/07/20 aspirin 81 mg chewable tablet 81 mg PO DAILY thinner 11/07/20 cholecalciferol (vitamin D3) 125 mcg (5,000 unit) tablet 125 mcg PO DAILY supplement 11/07/20 colchicine 0.6 mg tablet (Colcrys) 0.6 mg PO BID gout 11/07/20 finasteride 5 mg tablet 5 mg PO QHS urine retention 11/07/20 tamsulosin 0.4 mg capsule 0.4 mg PO BID urinary retention 11/07/20 alprazolam 0.5 mg tablet (Xanax) 0.5 mg PO BID anxiety 11/09/20 nitroglycerin 0.4 mg sublingual tablet 0.4 mg sublingual Q5M PRN Cardiac/Chest Pain #0 tabs 11/09/20 acetaminophen 500 mg tablet 1,000 mg PO Q6H PRN PRN Pain Score 1-3 #0 tabs 11/15/20 omeprazole 20 mg capsule,delayed release 20 mg PO BID GERD 08/28/22 atorvastatin 40 mg tablet 40 mg PO QHS #30 tabs 08/29/22 metoprolol tartrate 25 mg tablet 25 mg PO BID #60 tabs 08/29/22 Hospital Course Operations None Procedures 2-D Echocardiogram and Stress test Summary of Care Provided Minutes Spent on Discharge: 40 Hospital Course: Per HPI: The patient is a 72 y/o M w/ PMHx: Suspected CKD stage II, Obesity, BPH, GERD, JEFF[place] on BIPAP, HTN, HLD, CAD s/p PCI 2017, Hx VTE (PE, DVT), Rheumatoid arthritis, Hx TBI, Gout, Dementia unclear type with unclear behavioral disturbance history, Anxiety and Depression, Chronic anemia/iron deficiency anemia, EtOH Abuse, Hx COVID-19 Acute Viral Syndrome who presents to the [facility] ED on 08/28/22 with history of dyspnea, primarily with exertion following COVID illness several months prior with reportedly being outside and performing yard work specifically raking the leaves with onset lightheadedness and dizziness with resulting syncopal event unfortunately landing on his left shoulder with discomfort following, awakening with persistent dyspnea and mild chest heaviness prompting EMS call with administration of 4 baby aspirin and 1 nitroglycerin with no improvement in his symptoms prompting EMS transition to the ED for evaluation.? Patient reports that when he had the onset of chest discomfort he felt it was the same as his previous heart attacks and rated at 10 out of 10 at that time, currently upon evaluation in the ED he rates his discomfort 3 out of 10 in severity.? He notes the discomfort in the midsternal region without radiation and described it as heaviness/tightness.? ED calculated heart score 7. He notes that his L shoulder is bothering him more than anything, sharp pain 10/10 with any activity attempts, feels as though it was damaged/ripped. Work-up in the ED included T97.5, heart rate 76, BP 150/84, resp iratory rate 15, 99% on room air, CBC with WBC 8.2, hemoglobin 13.3, platelet 180 without marked shift, D-dimer 0.55 however this is normal for age adjustment, BMP with chloride 110, BUN/Cr 26/1.34, troponin 27, chest x-ray with no acute cardiopulmonary findings/chronic changes w/ hyperinflation, plain film of the shoulder w/ moderate degree of osteoarthritis of the glenohumeral joint, EKG with initially [address] elevation in lead III with no other leads demonstrating this and no reciprocal changes subtly different than the prehospital EMS EKG which had been unchanged from prior.? In the ED patient ministered initially sublingual nitroglycerin eventually transition to nitroglycerin 0.5 inch TD application, morphine 2 mg IV x1. ED paged [employer] rep[employer] Dr. Salcedo and Hospitalist reviewed case with him with request for heparin drip start, agreed with ECHO and would evaluate for further plans. Hospital Coourse: 1. Persistent exertional dyspnea as well as syncope and possible unstable angina/CAD status post stent/HTN/HLD ? Troponins are negative ? 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 Discussion with cardiology they felt that he would be stable to go home, and to be started on a statin and metoprolol twice daily ? Echo with an EF of 55% and a small sized posterior wall motion abnormality ? Continue with his home blood pressure medications ? Orthostatic vital signs are negative ?I discussed with him the plan for discharge today and he expressed understanding of the risk benefits going home and would like to go home today. He denies any further episodes of chest pain or lightheadedness and dizziness. Do recommend he follow-up with his PCP in 3 to 5 days as well as cardiology within the next month or so. 2. Left shoulder discomfort after fall ? Film of the shoulder is negative for fracture, there is some osteoarthritis ? He did have his rotator cuff repaired twice in the past. We will have him follow-up with outpatient Ortho 3. GERD ? Stable ? Continue with PPI 4. BPH ? Stable ? Continue Flomax 5. Gout ? Stable ? Continue with allopurinol and colchicine 6. Anxiety ? Stable ? Continue Xanax DVT: Heparin drip Weight / BMI Weight Weight: 192 lb 10.944 oz Body Mass Index (BMI) 31.1 ABG / Lab / Microbiology Data Result Diagrams: 08/29/22 09:28 08/29/22 09:28 Laboratory: Laboratory Results - last 24 hr 08/28/22 13:25: PT 12.5, INR 1.0, APTT 26.0 08/28/22 15:00: Phosphorus 2.2 L, Magnesium 2.0 08/28/22 15:00: Ethyl Alcohol < 3.0 08/28/22 16:04: Troponin I High Sens 38 08/28/22 19:22: Troponin I High Sens 42 08/28/22 23:30: APTT 140.0 H* 08/29/22 09:28: WBC 7.2, RBC 4.41 L, Hgb 14.3, Hct 42.5, MCV 96.4 H, MCH 32.4 H, MCHC 33.6, RDW Std Deviation 46.0 H, RDW Coeff of Leeann 12.9, Plt Count 153, MPV 9.5, Immature Gran % (Auto) 1.000 H, Neut % (Auto) 56.6, Lymph % (Auto) 29.7, Ashley % (Auto) 9.0, Eos % (Auto) 2.9, Baso % (Auto) 0.8, Absolute Neuts (auto) 4.1, Absolute Lymphs (auto) 2.15, Nucleated RBC % 0 08/29/22 09:28: Sodium 139, Potassium 3.5, Chloride 109 H, Carbon Dioxide 27.0, Anion Gap 3 L, BUN 20 H, Creatinine 1.11, Estim Creat Clear Calc 54.28, Est GFR (MDRD) Af Amer 84, Est GFR (MDRD) Non-Af 69, BUN/Creatinine Ratio 18.0, Glucose 100, Calcium 9.2, Total Bilirubin 0.50, AST 23, ALT 24, Alkaline Phosphatase 59, Total Protein 7.0, Albumin 3.8, Globulin 3.2, Albumin/Globulin Ratio 1.2 08/29/22 09:28: APTT 65.5 H Radiography Diagnostic Testing: Radiology Impression Echocardiogram 08/28/22 15:46 Interpretation Summary The estimated ejection fraction is 55 %. There is a small sized posterior wall motion abnormality with hypokinesis of the segments. Ordering Physician: Rosey England Referring Physician: Herb Wolf Performed By: Olegario Terrazas RCS D/C Instructions Discharge Diet: Low fat / Low cholesterol Call your doctor if you observe: Fever of 101 or Higher, Shortness of breath, Dizziness, Fainting spells, Swelling in the ankles, Chest pain and Increased palpitations (irregular heartbeat) Meaningful Use Info Meaningful Use Diagnoses (Choose all that apply): None applicable Discharge Plan Admission Admit Date/Time: 08/28/22 14:50 Attending Provider: Stevan Max Primary Care Provider: Herb Wolf Consulting Providers: Nabil Salcedo ; Rosey England Instructions Additional Instructions / Restrictions: Please follow-up with your [employer] within the next couple of weeks for outpatient follow-up. You are being started on a new blood pressure medication called metoprolol which helps with your heart rates if you do feel dizzy or lightheadedness please take your blood pressure and call your doctor. Discharge Orders/Prescriptions Prescriptions: New atorvastatin 40 mg Tablet 40 mg PO QHS Qty: 30 0RF metoprolol tartrate 25 mg tablet 25 mg PO BID Qty: 60 0RF Continued allopurinol 100 mg Tablet 100 mg PO BID tamsulosin 0.4 mg Capsule 0.4 mg PO BID aspirin 81 mg Tablet,Chewable 81 mg PO DAILY colchicine [Colcrys] 0.6 mg Tablet 0.6 mg PO BID finasteride 5 mg Tablet 5 mg PO QHS cholecalciferol (vitamin D3) 125 mcg (5,000 unit) Tablet 125 mcg PO DAILY nitroglycerin 0.4 mg Tablet, Sublingual 0.4 mg sublingual Q5M PRN (Reason: Cardiac/Chest Pain) Qty: 0 0RF alprazolam [Xanax] 0.5 mg tablet 0.5 mg PO BID acetaminophen 500 mg Tablet 1,000 mg PO Q6H PRN PRN (Reason: Pain Score 1-3) Qty: 0 0RF omeprazole 20 mg Capsule,Delayed Release(Dr/Ec) 20 mg PO BID Referrals / Follow Up: Herb Wolf DO [Primary Care Provider] - Within 1 Week Disposition Disposition (needs filled in before D/C Order can be placed): Home, Self Care Charges/Coding Visit Charges Inpatient E&M: 09112 Disch Hosp >30min
[2022-08-29 16:00] VITALS: BP 126/75; PULSE 73; RESP 16; TEMP 36.5; O2SAT 99
--- NOTE | 2022-08-29 16:11 | CASEMGMT ---
RICHARD CM in to complete CASE Form with patient. RN TONI explained CASE form to patient, patient voiced understanding. Patient signed CASE form and filed in chart. Patient provided with copy of signed CASE form. Patient had no further questions or concerns at this time.
== END 2022-08-29 15:27 | disposition home or self-care (01) ==
LOC: ED 14:21 → PCU 15:26
PROVIDERS: Admitting Provider Family Medicine; Emergency Provider Emergency Medicine; PCP Family Medicine; Visit Provider Family Medicine
DX: R55 Syncope and collapse (principal); F03.90 Unspecified dementia, unspecified severity, without behavioral disturbance, psychotic disturbance, mood disturbance, and anxiety; M10.9 Gout, unspecified; E78.5 Hyperlipidemia, unspecified; F41.9 Anxiety disorder, unspecified; S49.92XA Unspecified injury of left shoulder and upper arm, initial encounter; Z86.16 Personal history of COVID-19; I12.9 Hypertensive chronic kidney disease with stage 1 through stage 4 chronic kidney disease, or unspecified chronic kidney disease; I25.10 Atherosclerotic heart disease of native coronary artery without angina pectoris; Z79.82 Long term (current) use of aspirin; K21.9 Gastro-esophageal reflux disease without esophagitis; R07.89 Other chest pain; R42 Dizziness and giddiness; R06.09 Other forms of dyspnea; Z79.899 Other long term (current) drug therapy; X58.XXXA Exposure to other specified factors, initial encounter; I25.2 Old myocardial infarction; F32.A Depression, unspecified; E66.9 Obesity, unspecified; Z68.31 Body mass index [BMI] 31.0-31.9, adult; N40.0 Benign prostatic hyperplasia without lower urinary tract symptoms; Z86.718 Personal history of other venous thrombosis and embolism; Z86.711 Personal history of pulmonary embolism; N18.2 Chronic kidney disease, stage 2 (mild); G47.33 Obstructive sleep apnea (adult) (pediatric)
CPT/HCPCS: 36415; 71046; 73030; 78452; 80048; 80053; 82077; 83735; 84100; 84484; 85025; 85379; 85610; 85730; 90471; 93005; 93017; 93306; 94668; 96365; 96366; 96375; 96376; 97162; 97166; 99285; A9500; J7030; J7040; Q9957; A4216; C8929; J2405; J2785

== ENCOUNTER 2023-01-11 09:32 | Observation (INO) | payer MEDICARE, SELFPAY ==
[2020-01-05 11:37] VITALS: BMI 34.5
[2023-01-11] VITALS (17 sets, daily range): BP systolic 142–190; BP diastolic 80–96; PULSE 70–91; RESP 11–20; TEMP 36.4–36.8; O2SAT 95–98; BMI 31.4; BMI 31.1
--- NOTE | 2023-01-11 09:37 | EKG12_ITS ---
Test Reason : POSS STROKE Blood Pressure : / mmHG Vent. Rate : 078 BPM Atrial Rate : 078 BPM P-R Int : 128 ms QRS Dur : 100 ms QT Int : 398 ms P-R-T Axes : 019 -37 036 degrees QTc Int : 453 ms Sinus rhythm with occasional Premature ventricular complexes Left axis deviation Abnormal ECG Confirmed by RIKA MUJICA ([id number]), order editor ROBERTO RAHMAN ([id number]) on 01/16/2023 8:32:20 AM Referred By: Confirmed By:RIKA MUJICA
--- NOTE | 2023-01-11 09:37 | CT_ITS ---
HISTORY: Neuro deficit, acute, stroke suspected. TECHNIQUE: Multiple axial images were obtained of the head without intravenous contrast. A radiation dose optimization technique was used for this scan. 252 images. COMPARISON: 06/17/2015. FINDINGS: BRAIN PARENCHYMA: Multiple foci and zones of low attenuation in the bilateral cerebral white matter compatible with chronic small vessel ischemic gliosis. No acute intra-axial hemorrhage identified. CSF SPACES: Generalized volume loss. No midline shift or other significant mass effect. No acute extra-axial hemorrhage seen. OTHER: Intact calvarium. No significant air fluid levels in the paranasal sinuses or mastoid air cells. Unremarkable orbits. ASPECTS Score for Acute Strokes: 10 CT/STROKE Brain/Head without Cont IMPRESSION: No acute intracranial process identified. Mild chronic involutional and white matter changes. N.B. : The above Results were Read Back by Monica Santizo MD to Leeroy Araujo MD, and understanding confirmed on 01/11/2023 09:56:51 (ET). Electronically Signed: Monica Santizo MD at 9:56 EDT ,
--- NOTE | 2023-01-11 09:38 | CT_ITS ---
We are attempting to reach an attending provider to discuss findings. An addendum with communication details will be sent when the communication is complete. HISTORY: Neuro deficit, acute, stroke suspected. TECHNIQUE: [place]/head and carotid CT angiogram protocol was performed after the intravenous administration of 100 mL Isovue 370. NASCET criteria using the distal ICAs for comparison were used for evaluation of stenoses. 3D reconstructions were reviewed. A radiation dose optimization technique was used for this scan. 2106 images. COMPARISON: CT head same day. FINDINGS: AORTIC ARCH AND BRANCHES: Mild atherosclerosis. RIGHT CCA: No occlusion or dissection. Calcified plaque at the bifurcation with approximately 50% stenosis. RIGHT ICA: No occlusion or dissection. Calcified plaque at the origin with approximately 60% stenosis. LEFT CCA: No occlusion, significant stenosis or dissection. Calcified plaque at the bifurcation with less than 30% stenosis. LEFT ICA: No occlusion, significant stenosis or dissection. Atherosclerosis extends into the origin with up to 30% stenosis. RIGHT VERTEBRAL ARTERY: Dominant. No occlusion, significant stenosis or dissection. LEFT VERTEBRAL ARTERY: Hypoplastic. No occlusion, significant stenosis or dissection. SOFT TISSUES: Left upper lobe fibrosis with bronchiectasis. ICAs: No significant stenosis at the intracranial/visualized segments. Calcified plaque at both carotid siphons. ACAs: No significant stenosis at the visualized segments. Anatomic variant with three A2 segments. MCAs: No significant stenosis at the visualized segments. special services supervisor: No significant stenosis at the visualized segments. Right origin. BASILAR ARTERY: No significant stenosis. VERTEBRAL ARTERIES: No significant stenosis at the intradural/visualized segments. No evidence of intracranial aneurysm or vascular malformation. CT/STROKE CTA Head AND Neck W/Con IMPRESSION: Right internal carotid artery with approximately 60% stenosis at its origin in the neck. No evidence for large vessel occlusion or other focal vascular abnormality in the lower [place] region. Electronically Signed: Monica Santizo MD at 10:17 EDT ,
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
--- NOTE | 2023-01-11 09:41 | NURSING ---
STROKE ALERT CALLED [phone]
[2023-01-11 10:03] LABS: Absolute Lymphocyte Count 2.05 X10^3/uL (0.83-4.51); Absolute Neutrophil Count 5.1 X10^3/uL (2.0-7.7); Basophil# 0.07 X10^3/uL; Basophil% 0.8 % (0-1); Eosinophil# 0.16 X10^3/uL; Eosinophils% 1.9 % (0-5); Hemoglobin 14.5 g/dL (13.0-16.5); Lymphocyte # 2.05 X10^3/ul (0.83-4.51); Lymphocyte % 24.8 % (19-41); Mean Corp Hgb Conc 33.7 g/dL (32-36); Mean Corpuscular Volume 94.9 fL (80-94); Mean Platelet Vol. 9.3 fl (6.2-12.0); Monocyte# 0.78 X10^3/uL; Monocyte% 9.4 % (0-10); NRBC Flagged by Analyzer 0 % (0-5); Neutrophil # 5.06 X10^3/uL (2.7-7.7); Neutrophil % 61.3 % (47-70); Platelet Count 179 K/mm3 (150-450); RBC Distribution Width CV 13.4 % (11.6-14.6); RBC Distribution Width SD 46.2 fl (35.1-43.9); Red Blood Count 4.53 M/mm3 (4.6-6.2); White Blood Count 8.3 K/mm3 (4.4-11.0)
[2023-01-11 10:09] LABS: International Normalized Ratio 0.9; Prothrombin Time (Protime)PT. 12.3 SECONDS (11.7-14.9)
[2023-01-11 10:10] LABS: Partial Thromboplast Time 25.6 Seconds (24.1-36.2)
[2023-01-11 10:18] LABS: Anion Gap 5 (5-15); BUN 19 mg/dL (7-18); BUN/Creat Ratio 14.2 RATIO (10-20); Chloride 109 mmol/L (98-107); Creatinine, Serum 1.34 mg/dL (0.70-1.30); EST Glomerular Filtration Rate 56 mL/min (>60); Est Glom Filt Rate - Afr Amer 67 mL/min (>60); Estimated Creatinine Clearance 44.97 ml/min; Glucose 95 mg/dL (74-106); Potassium 4.2 mmol/L (3.5-5.1); Sodium Level 141 mmol/L (136-145); Troponin-I HS 18 pg/mL (3.0-78.0)
[2023-01-11 10:36] LABS: Alcohol, Blood (Medical)-Serum < 3.0 mg/dL
--- NOTE | 2023-01-11 10:55 | RAD_ITS ---
HISTORY: Neuro deficit, acute, stroke suspected. TECHNIQUE: XR Chest 1 View. COMPARISON: 08/28/2022. FINDINGS: CARDIOMEDIASTINAL BORDERS: Cardiac silhouette within normal limits in size. Mediastinal contour unremarkable with mild calcification of the aortic knob. LUNGS: Chronic left upper lobe fibrosis. Surgical clips in the left neck. PLEURA: No pleural effusion or pneumothorax seen. OSSEOUS STRUCTURES: Mild degenerative change. RAD/Chest 1 View IMPRESSION: No acute cardiopulmonary process identified. Chronic left upper lobe fibrosis. Electronically Signed: Monica Santizo MD at 11:43 EDT ,
[2023-01-11 11:54] LABS: Bacteria 0 SEEN /hpf (None Seen); Color, Urine Yellow (Yellow); Glucose, Dipstick Normal (Normal); Ketone-Dipstick Negative (Negative); Leukocyte Esterase-Dipstick Negative /ul (Negative); Mucous, Urine 0 SEEN /hpf (<or=2+); Nitrite-Dipstick Negative (Negative); Occult Blood-Urine 10 /ul (Negative); Protein-Dipstick Negative (Negative); Urine Bilirubin Dipstick Negative (Negative); Urine Clarity Clear (Clear); Urine Urobilinogen Normal (Normal); Urine pH 6.5 (5.0 - 8.0); White Blood Cells 0 SEEN /hpf (0-5)
[2023-01-11 12:07] LABS: Red Blood Cells-Urine 0-5 SEEN /hpf (0-5); Squamous Epithelial Cells - UA 0-5 SEEN /hpf (0-5)
[2023-01-11] MEDS: Ketorolac 15 MG/ML Vial IV (12:41)
[2023-01-11 13:28] LABS: AST(SGOT) 22 U/L (15-37); Alanine Aminotransfer ALT/SGPT 28 U/L (16-61); Albumin, Serum 3.8 g/dL (3.2-5.0); Alkaline Phosphatase 66 U/L (45-117); Bilirubin, Direct 0.15 mg/dL (0.00-0.30); Globulin 3.3 g/dL (2.2-4.2); Protein, Total 7.1 g/dL (6.4-8.2)
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
--- NOTE | 2023-01-11 14:37 | NURSING ---
[facility], HEADACHE
[2023-01-11 15:06] LABS: Troponin-I HS 25 pg/mL (3.0-78.0)
--- NOTE | 2023-01-11 15:23 | ECHOCS_ITS ---
Reason For Study: TIA/CVA Procedure This was a 2D Doppler, Color Flow transthoracic echocardiogram. The study was technically difficult. Contrast injection was performed. Exam performed portable in patient room. Left Ventricle Normal LV size. The estimated ejection fraction is 60 %. Left ventricular systolic function is normal. Normal diastology for age. No regional wall motion abnormalities noted. Right Ventricle Normal RV size. Normal systolic function. Atria Normal left atrium. Normal right atrium. Bubble contrast study negative for right to left interatrial shunt. Mitral Valve The mitral valve is structurally normal. No prolapse or stenosis seen. Trivial mitral valve insufficiency. Tricuspid Valve Normal tricuspid valve. Trivial tricuspid valve insufficiency. Unable to estimate RV systolic pressure due to insufficient tricuspid regurgitant envelope. Aortic Valve The aortic valve is not well visualized in the short axis view. There is no aortic stenosis. Trivial aortic valve insufficiency. Pulmonic Valve The pulmonic valve is not well visualized. Great Vessels Mild atherosclerosis of the ascending aorta. Normal sized aortic root. Pericardium/Pleural No pericardial effusion. Medication Diluted definity 2.5ml given slow IV push to enhance endocardial definition. Performed a rapid injection of agitated mix of 9 cc saline and 1cc air to assess for atrial septal defect. MMode/2D Measurements & Calculations RVDd: 3.3 cm Ao root diam: 3.1 cm LAV(MOD-bp): 46.5 ml LA dimension: 4.0 cm LAV(MOD-bp) Indexed: 23.5 ml/m2 LAV(MOD-sp2): 55.3 ml LAV(MOD-sp4): 38.1 ml LA A4 area: 15.6 cm2 RA A4 area: 17.0 cm2 Time Measurements MV dec time: 0.24 sec Doppler Measurements & Calculations MV E max jono: 75.1 cm/sec Lat Peak E' Jono: 6.8 cm/sec Med Peak E' Jono: 7.3 cm/sec MV A max jono: 118.9 cm/sec E/E' lat: 11.1 E/E' med: 10.4 MV E/A: 0.63 MV V2 max: 129.4 cm/sec MV P1/2t max jono: 59.3 cm/sec Ao V2 max: 116.7 cm/sec MV max P.7 mmHg MV P1/2t: 166.8 msec Ao max P.4 mmHg MV V2 mean: 55.5 cm/sec Ao V2 mean: 75.7 cm/sec MV mean P.6 mmHg MV dec slope: 104.1 cm/sec2 Ao mean P.7 mmHg MV V2 VTI: 28.5 cm MVA(P1/2t): 1.3 cm2 Ao V2 VTI: 20.3 cm AV (velocity ratio): 1.3 LV V1 max: 116.8 cm/sec PA V2 max: 125.0 cm/sec LV V1 max P.5 mmHg PA V2 mean: 90.5 cm/sec LV V1 mean P.8 mmHg LV V1 mean: 78.7 cm/sec LV V1 VTI: 25.8 cm ECHO/Echo Complete W/ Contrast Interpretation Summary Normal LV systolic function. The estimated ejection fraction is 60 %. Trivial mitral valve insufficiency. Trivial tricuspid valve insufficiency. Bubble contrast study negative for right to left interatrial shunt. Contrast echo using Definity The study was technically difficult. Contrast inje ction was performed. Ordering Physician: Chaparro Johns Referring Physician: eHrb Wolf Performed By: Olegario Terrazas RCS
--- NOTE | 2023-01-11 15:23 | MRI_ITS ---
STUDY: MRI BRAIN WITHOUT CONTRAST REASON FOR EXAM: Male, 72 years old. headache. encephalopathy TECHNIQUE: Standardized multiplanar fat and water weighted pulse sequences were obtained. COMPARISON: CT of the brain January 11, 2023 MRI of the brain June 18, 2015 FINDINGS: Normal size of the ventricles and extra-axial spaces for the patient''s age. Multiple scattered tiny punctate white matter lesions likely due to chronic ischemic changes without mass effect or restricted diffusion.. Normal bilateral basal ganglia. Normal thalami. There is no extra-axial fluid accumulation. Normal flow voids within the major intracranial circulation suggesting patency by spin echo criteria. Tiny high signal abnormality in the posterior half of the pituitary gland most likely benign lipomatous deposit or colloid cyst. Normal., infundibular stalk, optic chiasm and hypothalamus. Normal tectal plate and pineal gland. Normal midbrain, nikolas and medulla. Normal cerebellum. Normal basal cisterns. Normal bilateral temporal bones. Normal bilateral internal auditory canals. No demonstrated orbital abnormality, within the constraints of a routine brain study. Mild mucosal thickening of left maxillary and bilateral ethmoid sinuses. Normal calvarium and skull base. Normal visualized soft tissue structures. Normal visualized upper cervical spine. No significant change since prior exam MRI/Brain without Contrast IMPRESSION: Mild to moderate periventricular white matter ischemic changes without evidence for acute infarct. No evidence for obstructive hydrocephalus, mass or bleed Electronically Signed: Jabari Lyman MD at 19:26 EDT ,
[2023-01-11] MEDS: 0.9% Saline Lock 10 ML Syringe IV ×2 (16:37→18:39)
[2023-01-11] MEDS: Allopurinol 100 MG Tablet PO (18:39)
--- NOTE | 2023-01-11 18:57 | PCM.RX.CS ---
Consult Antibiotic Management Pharmacy has been consulted to manage selected antiobiotic: Vancomycin Type of Intervention Type of Consult: New start Suspected Infection Suspected Infection: Meningitis Prior Doses of Antibiotics Prior Doses of Antibiotics Received/Current Regimen: Vancomycin 2000 mg x 1 Acyclovir 640 mg Q8H Ampicillin 2 gm Q6H Labs Labs: Sodium 141 mmol/L (136-145) 01/11/23 09:45 Potassium 4.2 mmol/L (3.5-5.1) 01/11/23 09:45 Chloride 109 mmol/L (98-107) H 01/11/23 09:45 Carbon Dioxide 27.0 mmol/L (21.0-32.0) 01/11/23 09:45 Anion Gap 5 (5-15) 01/11/23 09:45 BUN 19 mg/dL (7-18) H 01/11/23 09:45 Creatinine 1.34 mg/dL (0.70-1.30) H 01/11/23 09:45 Est GFR (MDRD) Af Amer 67 mL/min (>60) 01/11/23 09:45 Est GFR (MDRD) Non-Af 56 mL/min (>60) L 01/11/23 09:45 BUN/Creatinine Ratio 14.2 RATIO (10-20) 01/11/23 09:45 Glucose 95 mg/dL (74-106) 01/11/23 09:45 Dosing Weight Weight used for dosin.6 kg Estimated Creatinine Clearance Estimated Creatinine Clearance: 45 ml/min Goal Trough Goal Trough: 15-20 mcg/mL Pharmacy Plan for Drug Dosing Pharmacy Plan for Drug Dosing: Vancomycin 2000 mg IV x 1 loading dose given 01/11 @ 8289. Subsequently will start with vancomycin 750 mg Q12H with a trough scheduled prior to the 4th dose. Pharmacy Service will continue to monitor and adjust dosing as required. Follow-Up Labs Follow-Up Labs: Trough: Vancomycin Date/Time Labs Ordered Labs to be done on [date and time ordered]: 01/11/23 @ 2891
[2023-01-11] MEDS: Acetaminophen 500 MG Tablet 1000 MG PO (19:02)
--- NOTE | 2023-01-11 19:08 | NURSING ---
Reviewed charting with Alex Ford RN
[2023-01-11] MEDS: Acyclovir 640 MG in Dextrose 5% 250 ML 262.8 MG IV (21:08)
[2023-01-11] MEDS: ALPRAZolam 0.5 MG Tablet PO (21:58)
[2023-01-11] MEDS: Finasteride 5 MG Tablet PO (21:58)
[2023-01-11] MEDS: Tamsulosin HCl 0.4 MG Capsule PO (21:58)
[2023-01-12 02:00] VITALS: BP 139/89; PULSE 71; RESP 16; TEMP 36.7; O2SAT 96
[2023-01-12 04:13] VITALS: BMI 31.1
[2023-01-12 04:30] VITALS: BP 143/89; PULSE 74; RESP 16; TEMP 36.7; O2SAT 96
[2023-01-12 06:00] VITALS: BP 137/88; PULSE 74; RESP 16; TEMP 36.6; O2SAT 97
[2023-01-12] MEDS: Acyclovir 640 MG in Dextrose 5% 250 ML 262.8 MG IV (06:04)
[2023-01-12 06:28] LABS: Absolute Lymphocyte Count 2.19 X10^3/uL (0.83-4.51); Absolute Neutrophil Count 3.3 X10^3/uL (2.0-7.7); Basophil# 0.06 X10^3/uL; Basophil% 0.9 % (0-1); Eosinophil# 0.22 X10^3/uL; Eosinophils% 3.4 % (0-5); Hematocrit 39.9 % (40-54); Hemoglobin 13.2 g/dL (13.0-16.5); Lymphocyte # 2.19 X10^3/ul (0.83-4.51); Lymphocyte % 33.6 % (19-41); Mean Corp Hgb Conc 33.1 g/dL (32-36); Mean Corpuscular Hgb 31.7 pg (27.0-32.0); Mean Corpuscular Volume 95.7 fL (80-94); Mean Platelet Vol. 9.7 fl (6.2-12.0); Monocyte# 0.71 X10^3/uL; Monocyte% 10.9 % (0-10); NRBC Flagged by Analyzer 0 % (0-5); Neutrophil # 3.26 X10^3/uL (2.7-7.7); Platelet Count 173 K/mm3 (150-450); RBC Distribution Width CV 13.5 % (11.6-14.6); RBC Distribution Width SD 47.5 fl (35.1-43.9); Red Blood Count 4.17 M/mm3 (4.6-6.2); White Blood Count 6.5 K/mm3 (4.4-11.0)
[2023-01-12 07:08] LABS: Anion Gap 6 (5-15); BUN 17 mg/dL (7-18); BUN/Creat Ratio 13.1 RATIO (10-20); Calcium,Total 8.9 mg/dL (8.5-10.1); Chloride 110 mmol/L (98-107); Cholesterol 288 mg/dL (200); EST Glomerular Filtration Rate 58 mL/min (>60); Est Glom Filt Rate - Afr Amer 70 mL/min (>60); Estimated Creatinine Clearance 46.35 ml/min; Glucose 103 mg/dL (74-106); High Density Lipoprotein 46 mg/dL; Sodium Level 141 mmol/L (136-145); Thyroid Stim Hormone (TSH) 1.97 uIU/mL (0.358-3.74); Triglycerides 791 mg/dL
[2023-01-12] MEDS: 0.9% Saline Lock 10 ML Syringe IV ×2 (07:59→10:57)
[2023-01-12] MEDS: Allopurinol 100 MG Tablet PO (08:00)
[2023-01-12] MEDS: Aspirin 81 MG TAB.CHEW PO (08:00)
--- NOTE | 2023-01-12 09:31 | DCINST_ITS ---
Discharge Instructions Diet Discharge Diet: Low fat / Low cholesterol Activity Discharge Activity: Return to Normal Activity Dressing / Incision Call your doctor if you observe: Fever of 101 or Higher, Shortness of breath, Dizziness, Fainting spells, Swelling in the ankles, Chest pain and Increased palpitations (irregular heartbeat) Follow Up Care Test Results: Test results from this visit will be discussed in further detail at your follow- up appointment, if applicable. Discharge Plan Admission Admit Date/Time: 01/11/23 14:25 Attending Provider: Stevan Max Primary Care Provider: Herb Wolf Consulting Providers: Chaparro Johns Discharge Orders/Prescriptions Prescriptions: Continued allopurinol 100 mg Tablet 100 mg PO BID tamsulosin 0.4 mg Capsule 0.4 mg PO QHS aspirin 81 mg Tablet,Chewable 81 mg PO DAILY colchicine (gout) [Colcrys] 0.6 mg Tablet 0.6 mg PO PRN finasteride 5 mg Tablet 5 mg PO QHS cholecalciferol (vitamin D3) 125 mcg (5,000 unit) Tablet 50,000 unit PO WE nitroglycerin 0.4 mg Tablet, Sublingual 0.4 mg sublingual Q5M PRN (Reason: Cardiac/Chest Pain) Qty: 0 0RF alprazolam [Xanax] 0.5 mg tablet 0.5 mg PO BID acetaminophen 500 mg Tablet 1,000 mg PO Q6H PRN PRN (Reason: Pain Score 1-3) Qty: 0 0RF pantoprazole 40 mg tablet,delayed release (DR/EC) 40 mg PO BID Referrals / Follow Up: Herb Wolf DO [Primary Care Provider] - Within 1 Week Disposition Disposition (needs filled in before D/C Order can be placed): Home, Self Care
[2023-01-12] MEDS: Pantoprazole Sodium 40 MG Tablet PO (09:37)
[2023-01-12] MEDS: ALPRAZolam 0.5 MG Tablet PO (09:37)
--- NOTE | 2023-01-12 10:00 | CASEMGMT ---
RN?CM?SECURE SOFTWARE ASSESSOR?CM?to room to meet with patient for initial transition planning/care coordination?assessment.?RN?CM?introduced self and role at [facility].? Pt voices understanding and consents to?assessment?at this time.? Pt resting in bed in no distress at this time.? Pt is A/O at this time and answers all questions appropriately.?? Care providers, pharmacy, and demographics verified/updated at this time. PCP: Dr Wolf Specialists: Noted in hx pt has seen Dr Jimenez (marine underwriter), Dr Bob (urologist) and Dr Campbell (ortho) in the past, but he is not sure if he is still active w/them. Pt states his manages all of that. Preferred Pharmacy: [facility] Insurance: Kristyn BRYANT Prescription Benefit:?Yes Living Will/HPOA:?Pt has both LW and HCPOA, who is his , Rich. LNOK: , Rich Living Arrangements: Lives w/his in mobile home w/4 steps to enter. Independent w/ADL's and IADL's. Pt states his still works and so he manages most home tasks and does the yardwork. Pt states he has hx of TBI and memory issues at times and so manages his medications and appts. Transportation:?Pt states drives self and states no transportation concerns at this time.? also drives and will take him home @ d/c. DME: ?States has the following DME:?BIPAP from [employer], pulse ox, BP cuff. Pt also has cane/crutches/walker but does not use them. ?Pt states no need for further DME at this time.? HHC/SNF: [facility], and [facility]. Pt has also had [facility] in the past. Pt denies need for HHC. Pt wishes to return home and states has no concerns with going home at time of discharge.? ?CM?to follow for any discharge planning/needs.? Pt voices no concerns/needs at this time.? Advised pt to ask for?CM?if any questions/concerns/needs arise.? Voices understanding. PLAN:??Home w/spousal support and discharge plans in place. DGiauque BSN?RN?CM
[2023-01-12 10:47] VITALS: BP 156/83; PULSE 77; RESP 18; TEMP 36.3; O2SAT 97
[2023-01-12 11:02] VITALS: BMI 31.1
--- NOTE | 2023-01-12 12:11 | NURSING ---
Reviewed charting with Alex Ford RN
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
[2023-01-12 15:04] LABS: Bedside Glucose 90 mg/dL (74-106)
== END 2023-01-12 11:50 | disposition home or self-care (01) | DRG 70 ==
LOC: ED 14:42 → PCU 01-12 07:12
PROVIDERS: Emergency Provider Emergency Medicine; PCP Family Medicine; Visit Provider Family Medicine
DX: G93.40 Encephalopathy, unspecified (principal); M06.9 Rheumatoid arthritis, unspecified; R47.01 Aphasia; I10 Essential (primary) hypertension; G43.009 Migraine without aura, not intractable, without status migrainosus; E78.5 Hyperlipidemia, unspecified; I25.10 Atherosclerotic heart disease of native coronary artery without angina pectoris; M10.9 Gout, unspecified; K21.9 Gastro-esophageal reflux disease without esophagitis; M54.2 Cervicalgia; F41.9 Anxiety disorder, unspecified; N40.0 Benign prostatic hyperplasia without lower urinary tract symptoms; Z95.5 Presence of coronary angioplasty implant and graft; G89.29 Other chronic pain; Z79.82 Long term (current) use of aspirin; Z79.899 Other long term (current) drug therapy; Z87.820 Personal history of traumatic brain injury; R94.31 Abnormal electrocardiogram [ECG] [EKG]; I49.3 Ventricular premature depolarization; I08.3 Combined rheumatic disorders of mitral, aortic and tricuspid valves; R29.702 NIHSS score 2
CPT/HCPCS: 36415; 70450; 70496; 70498; 70551; 71045; 80048; 80061; 80076; 81001; 82077; 82140; 82962; 84443; 84484; 85025; 85610; 85730; 93005; 93306; 94762; 96365; 96366; 96367; 96375; 97161; 97165; 97802; 99221; 99285; J7040; J7050; Q9957; A4216; C8929; G0378

== ENCOUNTER → 2023-04-05 | Outpatient (CLI) | payer MEDICARE, SELFPAY ==
[2020-01-05 11:37] VITALS: BMI 34.5
== END | disposition home or self-care (01) ==
LOC: PSN 10:48
PROVIDERS: PCP Family Medicine; Referring Provider Physician Assistant Medical; Visit Provider Physician Assistant Medical
DX: R55 Syncope and collapse (principal)
CPT/HCPCS: 93225; 93226

== ENCOUNTER → 2023-07-24 | Outpatient (CLI) | payer MEDICARE, SELFPAY ==
[2020-01-05 11:37] VITALS: BMI 34.5
--- OUTSIDE RECORDS SUMMARY | 2023-07-24 06:37 | XMS RPT_ITS | CCD ---
Author Name Unknown Address [id number] [place] [address] Organization [facility] Care Team Providers Care Aerodynamic Consultant Name Role Phone DR AFUA WOLF DO A Primary Care Physician [phone] Yani Mendoza MD, Hannah Unavailable Afua Wolf DO A Primary Care Provider Yani Mendoza MD, Hannah Unavailable Afua Wolf DO A Primary Care Provider IAM WAYNE Referring Unavailable ROSIE, AFUA A Primary Care Unavailable IAM WAYNE Attending Unavailable ROSIE, AFUA A Primary Care Unavailable AFUA WOLF Referring Unavailable LINDA RADFORD Admitting Unavailable LINDA RADFORD Attending Unavailable ROSIE, AFUA A Primary Care Unavailable LINDA RADFORD Attending Unavailable ROSIE, AFUA A Primary Care Unavailable LINDA RADFORD Referring Unavailable ROSIE, AFUA A Primary Care Unavailable MEREDITH AGUSTIN Attending Unavailable ROSIE, AFUA A Primary Care Unavailable MEREDITH AGUSTIN Attending Unavailable ROSIE, AFUA A Primary Care Unavailable Allergies Allergy Classification Reported Allergen(s) Allergy Type Date of Onset Reaction(s) Facility (10 sources) traMADol; Translations: [tramadol] Drug Allergy 09-25-2019 Other: See Comments [facility] (8 sources) Mold Extract; Translations: [MOLD] Drug Allergy 09-20-2017 Other: See Comments [facility] Medications Current Medications Medication Drug Class(es) Dates Sig (Normalized) Sig (Original) Aspirin (9 sources) Platelet Aggregation Inhibitor, Nonsteroidal Anti-inflammatory Drug Start: 09-17-2020 aspirin 81 mg oral delayed release tablet Dose : 81 mg = 1 tab(s), Oral, Daily, 0 Refill(s) Start Date: 09/17/20 Status: Ordered Completed/Discontinued Medications Medication Drug Class(es) Dates Sig (Normalized) Sig (Original) acetaminophen 325 mg / HYDROcodone bitartrate 5 mg oral tablet (2 sources) Opioid Agonist Start: 09-18-2020 End: 09-20-2020 Fletcher 325- 5 mg oral tablet Dose = 1 tab(s), Oral, q4h, PRN Pain, scale 4-10, # 12 tab(s), 0 Refill(s), Pharmacy: [id number], Intractable abdominal pain, 167.6, cm, 09/17/20 12:52:00 EDT, Height, 80.8, kg, 09/17/20 12:52:00 EDT, Dosing Weight Start Date: 09/18/20 Stop Date: 09/20/20 Status: Ordered Acetylcysteine (7 sources) Antidote, Mucolytic, Antidote for Acetaminophen Overdose Start: 01-27-2019 take 1 capsule by mouth once daily acetylcysteine (E-[id number]-CYSTEIN E MISC) Take 1 capsule by mouth once daily. 0 01/27/2019 Active Problems Active Problems Problem Classification Problem Date Documented Da te Episodic/Chronic Adjustment disorders (7 sources) Adjustment disorder; Translations: [Adjustment disorder with other symptoms] Onset: 1 12-01-2010 Chronic Anxiety disorders (14 sources) Anxiety; Translations: [Anxiety disorder, unspecified] Onset: 4 11-19-2013 Chronic Coronary atherosclerosis and other heart disease (7 sources) Coronary arteriosclerosis; Translations: [Atherosclerotic heart disease of [place] coronary artery without angina pectoris] Onset: 9 07-06-2021 Chronic Disorders of lipid metabolism (7 sources) Mixed hyperlipidemia; Translations: [Mixed hyperlipidemia] Onset: 7 05-23-2021 Chronic Esophageal disorders (14 sources) Esophageal dysmotility; Translations: [Dyskinesia of esophagus] Onset: 2 07-04-2011 Chronic Essential hypertension (7 sources) Hypertensive disorder; Translations: [Essential (primary) hypertension] Onset: 5 12-28-2014 Chronic Gout and other crystal arthropathies (7 sources) Calcium pyrophosphate deposition disease; Translations: [Other chondrocalcinosis, unspecified site] Onset: 9 02-15-2009 Chronic Hyperplasia of prostate (7 sources) Benign prostatic hyperplasia; Translations: [Benign prostatic hyperplasia with lower urinary tract symptoms] Onset: 2 07-06-2021 Chronic Inflammation; infection of eye (except that caused by tuberculosis or sexually transmitteddisease) (2 sources) Bilateral punctate keratitis of eyes; Translations: [Punctate keratitis, bilateral] 03-06-2023 Chronic Inflammation; infection of eye (except that caused by tuberculosis or sexually transmitteddisease) (2 sources) Traumatic iritis; Translations: [Unspecified iridocyclitis] 03-06-2023 Episodic Miscellaneous mental health disorders (14 sources) Psychosexual dysfunction associated with inhibited sexual excitement; Translations: [Other sexual dysfunction not due to a substance or known physiological condition] Onset: 7 03-17-2010 Chronic Mood disorders (14 sources) Recurrent major depressive episodes, moderate ; Translations: [Major depressive disorder, recurrent, moderate] Onset: 7 03-17-2010 Chronic Nutritional deficiencies (7 sources) Vitamin D deficiency; Translations: [Vitamin D deficiency, unspecified] Onset: 9 03-15-2015 Chronic Other ear and sense organ disorders (7 sources) Hearing loss; Translations: [Unspecified hearing loss, unspecified ear] Onset: 4 12-17-2013 Chronic Other endocrine disorders (7 sources) Testicular hypofunction; Translations: [Testicular hypofunction] Onset: 7 03-17-2010 Chronic Other eye disorders (1 source) Posterior vitreous detachment of right eye; Translations: [Vitreous degeneration, right eye] 03-20-2023 Chronic Other gastrointestinal disorders (2 sources) Constipation; Translations: [Constipation, unspecified] 07-13-2023 Episodic Other gastrointestinal disorders (1 source) Constipation, unspecified; Translations: [Constipation, unspecified constipation type] Onset: 4 Episodic Other liver diseases (7 sources) Steatosis of liver; Translations: [Fatty (change of) liver, not elsewhere classified] Onset: 6 10-05-2015 Chronic Peripheral and visceral atherosclerosis (7 sources) Intermittent claudication of bilateral lower 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; Translations: [Atherosclerosis of [place] arteries of extremities with intermittent claudication, bilateral legs] Onset: 0 12-08-2019 Chronic Residual codes; unclassified (7 sources) Obstructive sleep apnea syndrome; Translations: [Obstructive sleep apnea (adult) (pediatric)] Onset: 9 12-17-2018 Chronic Retinal detachments; defects; vascular occlusion; and retinopathy (2 sources) Hemorrhage of right retina; Translations: [Retinal hemorrhage, right eye] 03-06-2023 Chronic Spondylosis; intervertebral disc disorders; other back problems (14 sources) Cervical spondylosis without myelopathy; Translations: [Spondylosis without myelopathy or radiculopathy, cervical region] Onset: 5 07-07-2014 Chronic Unclassified (7 sources) Finding of gastrointestinal tract gas; Translations: [Gas] 06-15-2011 Past or Other Problems Problem Classification Problem Date Documented Da te Episodic/Chronic Abdominal pain (7 sources) Upper abdominal pain; Translations: [Upper abdominal pain, unspecified] Onset: 09-08-2016 09-08-2016 Episodic Cardiac dysrhythmias (7 sources) Bradycardia; Translations: [Bradycardia, unspecified] Onset: 04-26-2020 04-26-2020 Episodic Coronary atherosclerosis and other heart disease (7 sources) Patient post percutaneous transluminal coronary angioplasty; Translations: [Coronary angioplasty status] Onset: 06-07-2020 06-07-2020 Episodic Deficiency and other anemia (7 sources) Anemia; Translations: [Anemia, unspecified] Onset: 10-11-2010 05-23-2021 Episodic Gastritis and duodenitis (8 sources) Gastritis; Translations: [Gastritis, unspecified, without bleeding] Onset: 07-04-2011 Episodic Headache; including migraine (7 sources) Headache; Translations: [Headache, unspecified headache type] Onset: 06-19-2014 08-24-2017 Episodic Intracranial injury (7 sources) Traumatic brain injury; Translations: [Unspecified intracranial injury with loss of consciousness of unspecified duration, initial encounter] Onset: 11-19-2013 11-19-2013 Episodic Nonspecific chest pain (7 sources) Chest pain; Translations: [Chest pain, unspecified] Onset: 01-30-2019 01-30-2019 Episodic Other connective tissue disease (7 sources) Unspecified rotator cuff tear or rupture of unspecified shoulder, not specified as traumatic; Translations: [Rotator cuff (capsule) sprain] Onset: 01-22-2009 01-22-2009 Episodic Other connective tissue disease (7 sources) Achilles tendinitis; Translations: [Achilles tendinitis, unspecified leg] Onset: 06-16-2014 06-16-2014 Episodic Other connective tissue disease (7 sources) Myofascial pain; Translations: [Myalgia, other site] Onset: 07-14-2014 07-14-2014 Episodic Other connective tissue disease (20 sources) Triggering of digit; Translations: [Trigger finger, right little finger] Onset: 08-11-2014 08-11-2014 Episodic Other connective tissue disease (1 source) Trigger finger, right ring finger; Translations: [Trigger ring finger of right hand] Onset: 04-12-2023 Episodic Other fractures (7 sources) Closed fracture of one rib; Translations: [Fracture of one rib, right side, subsequent encounter for fracture with routine healing] Onset: 2018 2018 Episodic Other gastrointestinal disorders (7 sources) Dysphagia; Translations: [Dysphagia, unspecified] Onset: 12-17-2013 12-17-2013 Episodic Other liver diseases (7 sources) Hepatic encephalopathy; Translations: [Hepatic failure, unspecified without coma] Onset: 12-17-2018 12-17-2018 Episodic Other nervous system disorders (7 sources) Impaired cognition; Translations: [Other symptoms and signs involving cognitive functions and awareness] Onset: 01-27-2015 01-27-2015 Episodic Other screening for suspected conditions (not mental disorders or infectious disease) (14 sources) D-dimer above reference range; Translations: [Other specified abnormal findings of blood chemistry] Onset: 01-30-2019 01-30-2019 Episodic Pulmonary heart disease (7 sources) H/O: pulmonary embolus; Translations: [Personal history of pulmonary embolism] Onset: 08-24-2015 07-06-2021 Episodic Residual codes; unclassified (7 sources) Insomnia; Translations: [Insomnia, unspecified] Onset: 11-19-2013 11-19-2013 Episodic Residual codes; unclassified (7 sources) Poor short-term memory ; Translations: [Other amnesia] Onset: 12-28-2014 05-23-2021 Episodic Residual codes; unclassified (7 sources) Edema of hand; Translations: [Localized edema] Onset: 01-30-2019 01-30-2019 Episodic Residual codes; unclassified (1 source) Pain, unspecified; Translations: [Pain] Onset: 04-02-2023 Episodic Spondylosis; intervertebral disc disorders; other back problems (20 sources) Low back pain; Translations: [Lumbago] Onset: 04-28-2008 04-28-2008 Episodic Results Test Name Value Interpretation Reference Range Facil ity Vital Signs Date Time Vital Sign Value Performing Clinician Facility 07-13-2023 15:25-0500 Body height 167.6 cm Iam aWyne MD Work Phone: [facility] 07-13-2023 15:25-0500 Body temperature 97.81 [degF] Iam Wayne MD Work Phone: [facility] 07-13-2023 15:25-0500 Body weight 86.91 kg Iam Wayne MD Work Phone: [facility] 07-13-2023 15:25-0500 Diastolic blood pressure 74 mm[Hg] Iam Wayne MD Work Phone: [facility] 07-13-2023 15:25-0500 Heart rate 68 /min Iam Wayne MD Work Phone: [facility] 07-13-2023 15:25-0500 SaO2% (BldA) [Mass fraction] 96 % Iam Wayne MD Work Phone: [facility] 07-13-2023 15:25-0500 Systolic blood pressure 128 mm[Hg] Iam Wayne MD Work Phone: [facility] 04-19-2021 12:22-0500 Diastolic blood pressure 84 mm[Hg] VIJAY HUYNH DO [facility] 04-19-2021 12:22-0500 Heart rate 64 /min VIJAY HUYNH DO [facility] 04-19-2021 12:22-0500 Mean blood pressure 102 mm[Hg] VIJAY HUYNH DO [facility] 04-19-2021 12:22-0500 Respiratory rate 16 /min VIJAY HUYNH DO [facility] 04-19-2021 12:22-0500 Systolic blood pressure 137 mm[Hg] VIJAY HUYNH DO [facility] 04-19-2021 11:06-0500 Body temperature 97.7 [degF] VIJAY HUYNH DO [facility] 04-19-2021 11:06-0500 Diastolic blood pressure 74 mm[Hg] VIJAY HUYNH DO [facility] 04-19-2021 11:06-0500 Heart rate 80 /min VIJAY HUYNH DO [facility] 04-19-2021 11:06-0500 Mean blood pressure 86 mm[Hg] VIJAY HUYNH DO [facility] 04-19-2021 11:06-0500 Respiratory rate 16 /min VIJAY HUYNH DO [facility] 04-19-2021 11:06-0500 Systolic blood pressure 111 mm[Hg] VIJAY HUYNH DO [facility] 04-02-2021 10:25-0400 Body temperature 98.06 [degF] DR JENNIFER ARNETT MD [facility] 04-02-2021 10:25-0400 Diastolic blood pressure 73 mm[Hg] DR JENNIFER ARNETT MD [facility] 04-02-2021 10:25-0400 Heart rate 88 /min DR JENNIFER ARNETT MD [facility] 04-02-2021 10:25-0400 Respiratory rate 16 /min DR JENNIFER ARNETT MD [facility] 04-02-2021 10:25-0400 Systolic blood pressure 109 mm[Hg] DR JENNIFER ARNETT MD [facility] Encounters Encounter Date Encounter Type Care Provider Facility Start: 07-13-2023 End: 07-13-2023 Subsequent hospital visit by physician Xr [facility] Work Phone: Radiology Procedures Date Procedure Procedure Detail Performing Clinician Start: 03-28-2022 Lipid 1996 panel - Serum or Plasma Meredith Agustin OD Work Phone: Start: 01-25-2022 Radex spine cervical 2 or 3 views [facility] Provider Start: 07-11-2021 Colonoscopy [facility] Work Phone: Start: 06-27-2019 History of placement of stent for coronary artery disease S/P coronary artery stent placement, RCA, CX [facility] Work Phone: Cholecystectomy DR JENNIFER GARCIA MD Finger structure (tracy dy structure) DR JENNIFER ARNETT MD Kidney stone (disorder) DR Yuri ARNETT MD Knee region structur e (body structure) DR JENNIFER ARNETT MD Stent, device (physi sj object) DR JENNIFER ARNETT MD Testis structure (tracy dy structure) DR JENNIFER ARNETT MD Plan of Treatment Date Care Activity Detail Author Start: 03-28-2027 Lipid 1996 panel - Serum or Plasma Lipid Screening [facility] Start: 03-28-2027 Lipid panel Lipid Screening [facility] Start: 07-11-2026 Colonoscopy COLONOSCOPY [facility] Start: 07-11-2026 COLORECTAL CANCER SCREENING COLORECTAL CANCER SCREENING [facility] Start: 07-11-2026 Screening for malignant neoplasm of colon [facility] Start: 09-28-2025 LIPID SCREEN LIPID SCREEN [facility] Start: 07-13-2024 BP Controlled (<130/80) BP Controlled (<130/80) [facility] Start: 03-10-2024 Urine microalbumin profile [facility] Start: 12-24-2023 DIABETES SCREEN DIABETES SCREEN [facility] Start: 12-24-2023 Diabetes Screening Diabetes Screening [facility] Start: 05-28-2023 Advance Directive Discussion Advance Directive Discussion [facility] Start: 03-28-2023 Hepatitis B surface antibody level LDL Cholesterol [facility] Start: 01-26-2023 Influenza vaccination Influenza Vaccine (#1) [facility] Start: 05-28-2022 Advance Directive Discussion Advance Directive Discussion [facility] Start: 01-26-2022 Influenza vaccination INFLUENZA (#1) [facility] Start: 11-22-2021 ANNUAL PCP TEAM CHRONIC DISEASE VISIT ANNUAL PCP TEAM CHRONIC DISEASE VISIT [facility] Start: 09-28-2021 Hepatitis B surface antibody level LDL CHOLESTEROL [facility] Start: 09-23-2021 FECAL OCCULT BLOOD FECAL OCCULT BLOOD [facility] Start: 09-23-2021 Screening for malignant neoplasm of colon Fecal Occult Blood [facility] Start: 08-24-2021 BP CONTROLLED (<130/80) BP CONTROLLED (<130/80) [facility] Start: 05-28-2021 ADVANCE DIRECTIVE DISCUSSION ADVANCE DIRECTIVE DISCUSSION [facility] Start: 2015 Pneumococcal Vaccine: 65+ (1 - PCV) Pneumococcal Vaccine: 65+ (1 - PCV) [facility] Start: 2015 Pneumococcal Vaccine: 65+ (1 of 1 - PCV) Pneumococcal Vaccine: 65+ (1 of 1 - PCV) [facility] Start: 2015 PNEUMOCOCCAL: 65+ (1 - PCV) PNEUMOCOCCAL: 65+ (1 - PCV) [facility] Start: 2010 Hepatitis B Vaccine (1 of 3 - Risk 3-dose series) Hepatitis B Vaccine (1 of 3 - Risk 3-dose series) [facility] Start: 2010 RSV Vaccine (1 - 1-dose 60+ series) RSV Vaccine (1 - 1-dose 60+ series) [facility] Start: 2000 SHINGRIX VACCINE (1 of 2) SHINGRIX VACCINE (1 of 2) [facility] Start: 1995 COLOGUARD (FIT-DNA) COLOGUARD (FIT-DNA) [facility] Start: [address] COLONOGRAPHY [facility] Start: 1995 Screening for malignant neoplasm of colon [facility] Start: 1995 SIGMOIDOSCOPY SIGMOIDOSCOPY [facility] Start: 1969 Hepatitis A Vaccine (1 of 2 - Risk 2-dose series) Hepatitis A Vaccine (1 of 2 - Risk 2-dose series) [facility] Start: 01-09-1951 COVID-19 VACCINE (#1) COVID-19 VACCINE (#1) [facility] XR Abdomen Supine an d Upright XR ABDOMEN 1V SUPINE Radiology Routine Constipation, unspecified constipation type 07/13/2023 4:26 PM EST [facility] Work Phone: End: 08-11-2024 XR Abdomen Supine and Upright XR ABDOMEN 1V SUPINE Radiology Routine Constipation, unspecified constipation type 1 Occurrences starting 07/13/2023 until 08/11/[address] [facility] Work Phone: Immunizations Immunization Date Immunization Notes Care Provider Josi daugherty 04-10-2018 influenza virus vaccine, unspecified formulation Meredith Agustin OD Work Phone: [facility] 03-10-2014 tetanus toxoid, redu honorio diphtheria toxoid, and acellular pertussis vaccine, adsorbed [facility] Work Phone: [facility] Work Phone: Payers Date Payer Category Payer Medicare [id number] 2021 Unknown [id number] Social History Date Type Detail Facility Start: 09-17-2020 End: 03-06-2023 Never smoked tobacco (finding) [facility] Sex Assigned At [facility] Start: 02-07-2013 End: 03-06-2023 Tobacco use and exposure Smokeless tobacco non-user [facility] Start: 07-15-2021 End: 07-13-2023 Alcohol intake Current non-drinker of alcohol (finding) [facility] Start: 07-15-2021 End: 03-06-2023 Alcohol intake [facility] Start: 04-27-2020 End: 08-12-2020 History SDOH Alcohol Frequency 1 [facility] Start: 02-22-2009 History SDOH Alcohol Comment 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 [facility] Start: 09-25-2019 History SDOH Social Connections Phone 3 [facility] Start: 09-25-2019 End: 08-12-2020 History SDOH Social Connections Get Together 2 [facility] Start: 09-25-2019 History SDOH Physical Activity DPW 6 [facility] Start: 09-25-2019 History SDOH Physical Activity MPS 4 [facility] Start: 09-25-2019 History SDOH Financial 5 [facility] Start: 09-25-2019 Education 12 [facility] Start: 1950 Sex Assigned At Male [facility] Start: 09-25-2019 End: 03-06-2023 Social connection and isolation panel [facility] Do you belong to any clubs or organizations such as congregation groups, unions, fraternal or athletic groups, or school groups? No [facility] Are you now , , , , never or living with a partner? [facility] How often to you hav e a drink containing alcohol? Never [facility] Average Number of Drinks Not on file [facility] Do you feel stress - tense, restless, nervous, or anxious, or unable to sleep at night because your mind is troubled all the time - these days [OSQ] To some extent [facility] (I/We) worried wheth er (my/our) food would run out before (I/we) got money to buy more. Never true [facility] Start: 01-28-2019 Gender identity Identifies as male gender (finding) [facility] Start: 01-28-2019 Sexual orientation Heterosexual (finding) [facility] Medical Equipment Procedure Code Equipment Code Equipment Origin al Text Equipment Identifier Dates [place] [employer] lock [id number] - [id number] Start: 03-23-2011 Clinical Notes 09-14-2015 to 07-13-2023 Thi Patton RT(R) - 07/13/2023 4:20 PM Iam Neri MD - 07/13/2023 3:50 PM Pratibha Whitley LPN - 07/13/2023 3:25 PM Meredith Bazzi OD - 03/20/2023 10:48 AM EDT Note Date & Type Note Facility 07-13-2023 Note HNO ID: [id number] Author: THI PATTON RT(R) Service: Radiology Author Type: Technologist Type: Progress Notes Filed: 07/13/2023 16:27 Note Text: Radiology Service Progress Note PATIENT NAME: Panfilo Owens DATE OF SERVICE: July 13, 2023 TIME: 4:19 PM PATIENT IDENTITY VERIFICATION COMPLETED USING TWO (2) IDENTIFIERS: Name and Date of confirmed by patient verbally. FALL SCREENING: Has the patient had 2 falls in the last year or 1 fall with injury or currently using an Ambulatory Assistive Device (Walker, Cane, Wheelchair, Crutches, etc.)? No PATIENT GENDER DATA: Male PATIENT RELEVANT IMPLANT DATA REVIEWED: Not Applicable PATIENT PRESENTS WITH AN IMPLANTABLE OR ATTACHED PROMOTIONS ASSISTANT SALES MARKETING: No RADIOLOGY DEPARTMENT: General X-ray: Exam(s) Completed: Abdomen X-Ray: Abdomen PERIPHERAL IV DATA: Not applicable SIGNED BY: RT Long(R) July 13, 2023 4:19 PM [facility] 07-13-2023 Note HNO ID: [id number] Author: IAM WYANE MD Service: ? Author Type: Physician Type: Progress Notes Filed: 07/14/2023 09:38 Note Text: 07/13/2023 Panfilo Owens [id number] SURGEON: Dr. Wayne PRIMARY DIAGNOSIS: Nausea, Bloating, Constipation HPI: Panfilo Owens is a 73 year old male patient that presents today with worsening nausea, bloating, and constipation. He reports that over the past few months he has experienced significant bloating, belching, and nausea. The symptoms occur randomly, and are not associated with eating. He denies dry heaving or vomiting. He also endorses significant constipation requiring the use of epsom salts and MoM for bowel regimen. He reports manually disimpacting himself regularly. Denies hematochezia or melena. HISTORY/REVIEW OF SYSTEMS: TAX ADVISOR: no history of CVA, TIA's or seizures reported. RESP: patient denies a history of any respiratory problems. CARD: HX of cardiac stents and PA. GI: Endorses GERD and hx of bleeding varices. : Endorses urine retention. ENDO: patient denies diabetes, thyroid problems, and steroid use. HEME: patient denies any hematology problems including bleeding, bruising, or anemia. ALLERGIES: Tramadol and Mold PAST SURGICAL HISTORY Procedure Laterality Date ARTHRP KNE CONDYLEANDPLATU MEDIALANDLAT COMPARTMENTS 1998 Knee replacement, total left, per Dr. Melara CHOLECYSTECTOMY 05/07/2013 CHOLECYSTECTOMY 2012 COLONOSCOPY 07/11/2021 repeat in 5 years COLONOSCOPY FLX DX W/COLLJ SPEC WHEN PFRMD 10/11/2010 Colonoscopy COLONOSCOPY W/BIOPSY SINGLE/MULTIPLE 09/18/2016 normal EGD TRANSORAL BIOPSY SINGLE/MULTIPLE 09/29/2010 [facility] inpt H-pylori negative EGD TRANSORAL BIOPSY SINGLE/MULTIPLE 09/18/2016 mild gastritis, GERD EGD W/O BRSH SPEC VARICIES INJ 07/11/2021 ESOPHAGOGASTRODUODENOSCOPY TRANSORAL DIAGNOSTIC 03/29/2009 [facility] inpt EGD H-pylori negative ESOPHAGOGASTRODUODENOSCOPY TRANSORAL DIAGNOSTIC 07/04/2011 EGD ESOPHAGOGASTRODUODENOSCOPY TRANSORAL DIAGNOSTIC 02/27/2013 EGD ESOPHAGOGASTRODUODENOSCOPY TRANSORAL DIAGNOSTIC 11/17/2019 EGD EXCISION OF GANGLION, WRIST 02/21/2011 Ganglion/foreign body right hand HEART CATHETERIZATION 2011? INCISE FINGER TENDON SHEATH Right 01/01/2015 Right 5th trigger finger release INCISE FINGER TENDON SHEATH Left Left index trigger finger release and Excision FB right dorsal wrist NEUROPLASTY AND/TRANSPOS MEDIAN NRV CARPAL TUNNE 03/10/2011 Carpal tunnel decomp Left ORCHIECTOMY SIMPLE SCROTAL/INGUINAL APPROACH 03/2005 Orchiectomy chronic epid., per Dr. Isidro PAST SURGICAL HISTORY OF 02/2009 heart stents X 2 - JOSE ANGEL to RCA PAST SURGICAL HISTORY OF 04/07/2010 rotator cuff left PAST SURGICAL HISTORY OF 08/21/2014 left middle finger trigger release PAST SURGICAL HISTORY OF Left 01/11/2016 Complete left knee replacement PAST SURGICAL HISTORY OF Left 07/18/2016 Removal of screw, left knee PAST SURGICAL HISTORY OF injections in neck REVJ TOT KNEE ARTHRP FEMANDENTIRE TIBIAL COMPONE 03/2007 Knee replacement, revision left SHOULDER ARTHROSCOPY/SURG 03/23/2011 Left shoulder arthroscopy and mini arthrotomy for revision left rotator cuff repair TENDON SHEATH INCISION Left 03/31/2015 left 4th finger trigger release ANESTHESIA COMPLICATIONS: no reported complications PHYSICAL EXAM: BP 128/74 (BP Site: Right Arm) Pulse 68 Temp 36.6 ?C (97.8 ?F) Ht 167.6 cm (5' 6 ) Wt 86.9 kg (191 lb 9.6 oz) SpO2 96% BMI 30.93 kg/m? GENERAL: Well appearing, alert, in no acute distress, well-hydrated, well nourished. CARDIAC: Rate: normal LUNGS: Lungs clear to auscultation. No wheezing, rhonchi, rales. ABDOMEN: Soft, non-tender to palpation IMPRESSION: Panfilo Owens is a 73 year old male with worsening nausea, bloating, and constipation. Last EGD/colonoscopy was Jun 2021. EGD showed gastritis with non-severe reflux esophagitis. Colonoscopy had poor prep, but was otherwise normal. PLAN: -Schedule for EGD/Colonoscopy at [place] with MAC anesthesia -2 day golytely prep Mishel Mckeon, DO General Surgery PGY5 I saw and evaluated the patient. Discussed with the resident and agree with resident's findings and plan as documented in the resident's note. Iam Wayne MD [facility] 07-13-2023 History of Presen t illness Narrative Radiology Service Progress Note PATIENT NAME: Panfilo Owens DATE OF SERVICE: July 13, 2023 TIME: 4:19 PM PATIENT IDENTITY VERIFICATION COMPLETED USING TWO (2) IDENTIFIERS: Name and Date of confirmed by patient verbally. FALL SCREENING: Has the patient had 2 falls in the last year or 1 fall with injury or currently using an Ambulatory Assistive Device (Walker, Cane, Wheelchair, Crutches, etc.)? No PATIENT GENDER DATA: Male PATIENT RELEVANT IMPLANT DATA REVIEWED: Not Applicable PATIENT PRESENTS WITH AN IMPLANTABLE OR ATTACHED PROMOTIONS ASSISTANT SALES MARKETING: No RADIOLOGY DEPARTMENT: General X-ray: Exam(s) Completed: Abdomen X-Ray: Abdomen PERIPHERAL IV DATA: Not applicable SIGNED BY: RT Long(R) July 13, 2023 4:19 PM documented in this encounter [facility] 07-13-2023 History of Presen t illness Narrative 07/13/2023 Panfilo Owens [id number] SURGEON: Dr. Wayne PRIMARY DIAGNOSIS: Nausea, Bloating, Constipation HPI: Panfilo Owens is a 73 year old male patient that presents today with worsening nausea, bloating, and constipation. He reports that over the past few months he has experienced significant bloating, belching, and nausea. The symptoms occur randomly, and are not associated with eating. He denies dry heaving or vomiting. He also endorses significant constipation requiring the use of epsom salts and MoM for bowel regimen. He reports manually disimpacting himself regularly. Denies hematochezia or melena. HISTORY/REVIEW OF SYSTEMS: TAX ADVISOR: no history of CVA, TIA's or seizures reported. RESP: patient denies a history of any respiratory problems. CARD: HX of cardiac stents and PA. GI: Endorses GERD and hx of bleeding varices. : Endorses urine retention. ENDO: patient denies diabetes, thyroid problems, and steroid use. HEME: patient denies any hematology problems including bleeding, bruising, or anemia. ALLERGIES: Tramadol and Mold PAST SURGICAL HISTORY Procedure Laterality Date ARTHRP KNE CONDYLE&PLATU MEDIAL&LAT COMPARTMENTS 1998 Knee replacement, total left, per Dr. Melara CHOLECYSTECTOMY 05/07/2013 CHOLECYSTECTOMY 2012 COLONOSCOPY 07/11/2021 repeat in 5 years COLONOSCOPY FLX DX W/COLLJ SPEC WHEN PFRMD 10/11/2010 Colonoscopy COLONOSCOPY W/BIOPSY SINGLE/MULTIPLE 09/18/2016 normal EGD TRANSORAL BIOPSY SINGLE/MULTIPLE 09/29/2010 [facility] inpt H-pylori negative EGD TRANSORAL BIOPSY SINGLE/MULTIPLE 09/18/2016 mild gastritis, GERD EGD W/O [facility] SPEC VARICIES INJ 07/11/2021 ESOPHAGOGASTRODUODENOSCOPY TRANSORAL DIAGNOSTIC 03/29/2009 [facility] inpt EGD H-pylori negative ESOPHAGOGASTRODUODENOSCOPY TRANSORAL DIAGNOSTIC 07/04/2011 EGD ESOPHAGOGASTRODUODENOSCOPY TRANSORAL DIAGNOSTIC 02/27/2013 EGD ESOPHAGOGASTRODUODENOSCOPY TRANSORAL DIAGNOSTIC 11/17/2019 EGD EXCISION OF GANGLION, WRIST 02/21/2011 Ganglion/foreign body right hand HEART CATHETERIZATION 2011? INCISE FINGER TENDON SHEATH Right 01/01/2015 Right 5th trigger finger release INCISE FINGER TENDON SHEATH Left Left index trigger finger release and Excision FB right dorsal wrist NEUROPLASTY &/TRANSPOS MEDIAN NRV CARPAL TUNNE 03/10/2011 Carpal tunnel decomp Left ORCHIECTOMY SIMPLE SCROTAL/INGUINAL APPROACH 03/2005 Orchiectomy chronic epid., per Dr. Isidro PAST SURGICAL HISTORY OF 02/2009 heart stents X 2 - JOSE ANGEL to RCA PAST SURGICAL HISTORY OF 04/07/2010 rotator cuff left PAST SURGICAL HISTORY OF 08/21/2014 left middle finger trigger release PAST SURGICAL HISTORY OF Left 01/11/2016 Complete left knee replacement PAST SURGICAL HISTORY OF Left 07/18/2016 Removal of screw, left knee PAST SURGICAL HISTORY OF injections in neck REVJ TOT KNEE ARTHRP FEM&ENTIRE TIBIAL COMPONE 03/2007 Knee replacement, revision left SHOULDER ARTHROSCOPY/SURG 03/23/2011 Left shoulder arthroscopy and mini arthrotomy for revision left rotator cuff repair TENDON SHEATH INCISION Left 03/31/2015 left 4th finger trigger release ANESTHESIA COMPLICATIONS: no reported complications PHYSICAL EXAM: BP 128/74 (BP Site: Right Arm) Pulse 68 Temp 36.6 C (97.8 F) Ht 167.6 cm (5' 6 ) Wt 86.9 kg (191 lb 9.6 oz) SpO2 96% BMI 30.93 kg/m GENERAL: Well appearing, alert, in no acute distress, well-hydrated, well nourished. CARDIAC: Rate: normal LUNGS: Lungs clear to auscultation. No wheezing, rhonchi, rales. ABDOMEN: Soft, non-tender to palpation IMPRESSION: Panfilo Owens is a 73 year old male with worsening nausea, bloating, and constipation. Last EGD/colonoscopy was Jun 2021. EGD showed gastritis with non-severe reflux esophagitis. Colonoscopy had poor prep, but was otherwise normal. PLAN: -Schedule for EGD/Colonoscopy at [place] with MAC anesthesia -2 day golytely prep Mishel Mckeon, General Surgery PGY5 I saw and evaluated the patient. Discussed with the resident and agree with resident's findings and plan as documented in the resident's note. Iam Wayne MD documented in this encounter [facility] 07-13-2023 Nurse Note REVIEW OF SYSTEMS: General: The patient notes fatigue, denies weight loss, denies weight gain, denies feeling hot, and notes feelings of cold. Eyes: The patient denies glaucoma, denies eye injury/surgery, does wear glasses or contacts. Ear/Nose/Throat: The patient notes allergies, denies hayfever, denies ear infections, and denies bloody noses. Cardiovascular: The patient denies chest pain, denies heart disease, notes high blood pressure,notes cardiac stent, denies prior heart attack, denies irregular heart beat, notes high cholesterol, notes poor circulation, denies heart failure, other cardiac issues, denies claudication, notes cold feet, denies peripheral arterial stent. Respiratory: The patient denies tuberculosis, denies pneumonia, denies frequent cough, denies pulmonary embolism, notes shortness of breath, and denies coughing up blood. Gastrointestinal: The patient denies difficulty swallowing, notes acid reflux, denies ulcers, denies vomiting, denies jaundice/hepatitis, denies gallbladder problems, denies black or tarry stools, denies hemorrhoids, denies bleeding from rectum, denies diverticulitis, notes constipation, denies diarrhea, denies loss of stool control, and denies hernias. Kidney/Bladder: The patient notes kidney stones, denies urine infections, and denies bloody urine. Skin: The patient denies a history of skin cancer, denies bleeding/changing moles, and denies a history of skin rash. Neurologic: The patient denies a history of epilepsy/convulsions, notes headaches, notes head/spinal injuries, and denies stroke/TIA. Psychiatric: The patient denies psychiatric medications, notes depression, and denies voices, denies substance abuse. Endocrine: The patient denies thyroid disorders, denies diabetes, and denies hormonal problems. Hematologic: The patient denies a history of bruising, denies bleeding, and denies anemia, denies blood clots. Infections: The patient denies a history of measles and mumps, denies rheumatic fever, and denies sexually transmitted diseases. Musculoskeletal: The patient notes back pain/injury, denies back problems, denies sciatica, notes knee/foot trouble, notes arthritis, or notes gout. When was patient's last Mammogram screening? N/A Last Colonoscopy: 2021 Pratibha Parsons LPN documented in this encounter [facility] 04-13-2023 Miscellaneous Notes Patient called back again asking for pain medication for patient, post surgery from yesterday, trigger finger. Please send to [facility]. Patient would like to contacted via phone or Seanodeshart when medication is sent in to pharmacy. Please review and advise. Thank you. Pratibha Parsons LPN Received a call from patient's requesting something else for pain. Per Rich the patient takes motrin so regularly that she is afraid that it will not be enough to manage his pain and she wanted to be ahead of it before the weekend. Reports increased pain and having only been home about 1 hour post surgery today. Talita Steward RN documented in this encounter [facility] 04-10-2023 Miscellaneous Notes Post op appointments have been scheduled and mailed to the patient. Surgery has been scheduled as requested. Surgical request completed for right ring trigger finger release at [facility] on 04/12/2023. documented in this encounter [facility] 04-02-2023 Note HNO ID: [id number] Author: Linda Radford MD Service: ? Author Type: Physician Type: Progress Notes Filed: 04/02/2023 1:47 PM Note Text: Linda Radford MD Department of Orthopaedics Orthopaedics [address] [facility] [address] Dept: [phone] Dept April 02, 2023 CHIEF COMPLAINT: Established Patient of the Right Hand (Right ring trigger finger/Last seen 03/03/2019 s/p left index trigger finger and FB removal right hand ) HPI Patient presents with a new trigger finger on the right ring. Its been bothering him for a number of months now but has had a lot of yard work to get organized for fall. ASSESSMENT: M65.341 Trigger ring finger of right hand (primary encounter diagnosis) PLAN: The risks, benefits, alternatives and potential complications involving operative and nonoperative treatment were again discussed. He would like to pursue surgery. He has some ongoing cardiac issues so he would like to get the finger taken care of under local anesthetic which I believe is fine. FOLLOW UP INSTRUCTIONS: As above Mr. Panfilo Owens was advised as to contrast therapies and/or to take analgesics/anti-inflammatories as needed and all contraindications were reviewed. OBJECTIVE: Mr. Panfilo Owens is a pleasant 72 year old in no apparent distress. Gen:There were no vitals taken for this visit. nl development, non obese, no deformities ENT: Normocephalic, normal hearing, moist mucosa CV: Pulses:Radial= 2+ and symmetric, capillary refill < 2 secs, no peripheral edema/varicosities Skin: no rash, bruising or lesions. Good turgor. Psych: cooperative and appropriate, alert and oriented x 3, good mood and affect. Musculoskeletal: Tender to palpation at the A1 miesha site of the ring digit. Active locking of the digit. Supporting Subjective Information Below: Past Medical History: PAST MEDICAL HISTORY Diagnosis Date Acute gastritis without mention of hemorrhage Acute myocardial infarction of other specified sites, episode of care unspecified 03/13/2009 Myocardial Infarction Acute pancreatitis r/t alcohol use Anemia, unspecified Coronary artery disease Depression Dyskinesia of esophagus Essential hypertension, benign Gout, unspecified Hearing impairment no aids Mental disorder Mixed hyperlipidemia JEFFERSON treated with BiPAP 12/17/2018 Other and unspecified disc disorder of lumbar region 04/29 L3-4, l4-5 per MRI Other chest pain 10/31 admitted [facility] with mMI ruled out; normal Cardiolyte stress test. Determined GERD Other specified gastritis Pulmonary embolism (HCC) completed a yr of warfarin Renal disorder Snoring Trigger middle finger of left hand 08/11/2014 Past Surgical History: PAST SURGICAL HISTORY Procedure Laterality Date ARTHRP KNE CONDYLEANDPLATU MEDIALANDLAT COMPARTMENTS 1998 Knee replacement, total left, per Dr. Melara CHOLECYSTECTOMY 05/07/2013 CHOLECYSTECTOMY 2013 COLONOSCOPY 07/11/2021 repeat in 5 years COLONOSCOPY FLX DX W/COLLJ SPEC WHEN PFRMD 10/11/2010 Colonoscopy COLONOSCOPY W/BIOPSY SINGLE/MULTIPLE 09/18/2016 normal EGD TRANSORAL BIOPSY SINGLE/MULTIPLE 09/29/2010 [facility] inpt H-pylori negative EGD TRANSORAL BIOPSY SINGLE/MULTIPLE 09/18/2016 mild gastritis, GERD EGD W/O [facility] SPEC VARICIES INJ 07/11/2021 ESOPHAGOGASTRODUODENOSCOPY TRANSORAL DIAGNOSTIC 03/29/2009 [facility] inpt EGD H-pylori negative ESOPHAGOGASTRODUODENOSCOPY TRANSORAL DIAGNOSTIC 07/04/2011 EGD ESOPHAGOGASTRODUODENOSCOPY TRANSORAL DIAGNOSTIC 02/27/2013 EGD ESOPHAGOGASTRODUODENOSCOPY TRANSORAL DIAGNOSTIC 11/17/2019 EGD EXCISION OF GANGLION, WRIST 02/21/2011 Ganglion/foreign body right hand HEART CATHETERIZATION 2011? INCISE FINGER TENDON SHEATH Right 01/01/2015 Right 5th trigger finger release INCISE FINGER TENDON SHEATH Left Left index trigger finger release and Excision FB right dorsal wrist NEUROPLASTY AND/TRANSPOS MEDIAN NRV CARPAL TUNNE 03/10/2011 Carpal tunnel decomp Left ORCHIECTOMY SIMPLE SCROTAL/INGUINAL APPROACH 03/2005 Orchiectomy chronic epid., per Dr. Isidro PAST SURGICAL HISTORY OF 02/2009 heart stents X 2 - JOSE ANGEL to RCA PAST SURGICAL HISTORY OF 04/07/2010 rotator cuff left PAST SURGICAL HISTORY OF 08/21/2014 left middle finger trigger release PAST SURGICAL HISTORY OF Left 01/11/2016 Complete left knee replacement PAST SURGICAL HISTORY OF Left 07/18/2016 Removal of screw, left knee PAST SURGICAL HISTORY OF injections in neck REVJ TOT KNEE ARTHRP FEMANDENTIRE TIBIAL COMPONE 03/2007 Knee replacement, revision left SHOULDER ARTHROSCOPY/SURG 03/23/2011 Left shoulder arthroscopy and mini arthrotomy for revision left rotator cuff repair TENDON SHEATH INCISION Left 03/31/2015 left 4th finger trigger release Family History: FAMILY HISTORY Problem Relation Age of Onset Coronary Artery Disease Mother heart disease, smoking Hypertension Father (more content not included)... [facility] 04-02-2023 Note HNO ID: [id number] Author: Eula Sosa RT(R) Service: ? Author Type: Clip Coater Type: Progress Notes Filed: 04/02/2023 12:23 PM Note Text: Radiology Service Progress Note PATIENT NAME: Panfilo Owens DATE OF SERVICE: April 02, 2023 TIME: 12:15 PM PATIENT IDENTITY VERIFICATION COMPLETED USING TWO (2) IDENTIFIERS: Name and Date of confirmed by patient verbally. FALL SCREENING: Has the patient had 2 falls in the last year or 1 fall with injury or currently using an Ambulatory Assistive Device (Walker, Cane, Wheelchair, Crutches, etc.)? No PATIENT GENDER DATA: Male PATIENT RELEVANT IMPLANT DATA REVIEWED: Yes RADIOLOGY DEPARTMENT: General X-ray: Exam(s) Completed: Upper Extremity X-Ray(s): Hand, right PERIPHERAL IV DATA: Not applicable SIGNED BY: RT Troy(R) April 02, 2023 12:15 PM [facility] 03-20-2023 Note HNO ID: [id number] Author: Meredith Agustin OD Service: ? Author Type: EMERGENCY MEDICINE MEDICAL DIRECTOR Type: Progress Notes Filed: 03/20/2023 10:51 AM Note Text: 1. Iritis, traumatic Resolving Rare cell Continue prednisolone twice daily x 1 week, then once daily x 1 week, then stop 2. Retinal hemorrhage, right eye Resolved Monitor 3. Punctate keratitis, bilateral Continue art tears 2-3 times daily and gel nightly 4. Posterior vitreous detachment of right eye With multiple additional floaters Educated pt on condition Warned patient about signs/symptoms of retinal pathology and to call immediately with any sudden increase in flashes/floaters or curtain/veil over vision Follow-up in 3 months for dilation OU to recheck floaters Meredith Agustin, OD March 20, 2023 10:48 AM [facility] 03-20-2023 History of Presen t illness Narrative 1. Iritis, traumatic Resolving Rare cell Continue prednisolone twice daily x 1 week, then once daily x 1 week, then stop 2. Retinal hemorrhage, right eye Resolved Monitor 3. Punctate keratitis, bilateral Continue art tears 2-3 times daily and gel nightly 4. Posterior vitreous detachment of right eye With multiple additional floaters Educated pt on condition Warned patient about signs/symptoms of retinal pathology and to call immediately with any sudden increase in flashes/floaters or curtain/veil over vision Follow-up in 3 months for dilation OU to recheck floaters Meredith Agustin, CASSIA March 20, 2023 10:48 AM documented in this encounter [facility] 03-06-2023 Note HNO ID: [id number] Author: Meredith Agustin OD Service: ? Author Type: EMERGENCY MEDICINE MEDICAL DIRECTOR Type: Progress Notes Filed: 03/06/2023 4:08 PM Note Text: 1. Iritis, traumatic Mild iritis Educated patient on condition Medications to Start Taking prednisoLONE acetate (PRED FORTE) 1 % ophthalmic suspension Use 1 Drop in the right eye four times daily for 14 days. 2. Retinal hemorrhage, right eye No associated holes/tears/RDs Educated patient Will monitor 3. Punctate keratitis, bilateral Recommend artificial tears 2-3 times daily and gel nightly Follow-up in 7-10 days for iritis check/dilation right eye Meredith Agustin, CASSIA March 06, 2023 3:53 PM [facility] 03-06-2023 History of Presen t illness Narrative 1. Iritis, traumatic Mild iritis Educated patient on condition Medications to Start Taking prednisoLONE acetate (PRED FORTE) 1 % ophthalmic suspension Use 1 Drop in the right eye four times daily for 14 days. 2. Retinal hemorrhage, right eye No associated holes/tears/RDs Educated patient Will monitor 3. Punctate keratitis, bilateral Recommend artificial tears 2-3 times daily and gel nightly Follow-up in 7-10 days for iritis check/dilation right eye Meredith Agustin, CASSIA March 06, 2023 3:53 PM documented in this encounter [facility] 03-06-2023 Instructions Meredith Agustin, OD - 03/06/2023 3:51 PM EDT Use Systane Complete or Refresh Relieva 2-3 times daily Use Systane, Refresh or Blink gel nightly before bed in both eyes documented in this encounter [facility] 01-25-2022 History of Presen t illness Narrative Radiology Service Progress Note PATIENT NAME: Panfilo Owens DATE OF SERVICE: January 25, 2022 TIME: 1:14 PM PATIENT IDENTITY VERIFICATION COMPLETED USING TWO (2) IDENTIFIERS: Name and Date of confirmed by patient verbally. FALL SCREENING: Has the patient had 2 falls in the last year or 1 fall with injury or currently using an Ambulatory Assistive Device (Walker, Cane, Wheelchair, Crutches, etc.)? No PATIENT GENDER DATA: Male PATIENT RELEVANT IMPLANT DATA REVIEWED: Not Applicable RADIOLOGY DEPARTMENT: General X-ray: Exam(s) Completed: Spine X-Ray(s): Cervical AP / LAT Pelvis X-Ray: Pelvis with Hip Left PERIPHERAL IV DATA: Not applicable SIGNED BY: RT Miryam(R) January 25, 2022 1:14 PM documented in this encounter [facility] 04-19-2021 Hospital Discharg e instructions Patient Education 04/19/2021 11:40:00 Abdominal Pain Abdominal Pain Abdominal pain is pain in the stomach or belly area. Everyone has this pain from time to time. In many cases it goes away on its own. But abdominal pain can sometimes be due to a serious problem, such as appendicitis. So it s important to know when to get help. Causes of abdominal pain There are many possible causes of abdominal pain. Common causes in adults include: Constipation, diarrhea, or gas Stomach acid flowing back up into the esophagus (acid reflux or heartburn) Severe acid reflux, called GERD (gastroesophageal reflux disease) A sore in the lining of the stomach or small intestine (peptic ulcer) Inflammation of the gallbladder, liver, or pancreas Gallstones or kidney stones Appendicitis Intestinal blockage An internal organ pushing through a muscle or other tissue (hernia) Urinary tract infections In women, menstrual cramps, fibroids, ovarian cysts, pelvic inflammatory disease, or endometriosis Inflammation or infection of the intestines, including Crohn's disease and ulcerative colitis Irritable bowel syndrome Diagnosing the cause of abdominal pain Your healthcare provider will give you a physical exam help find the cause of your pain. If needed, you will have tests. Belly pain has many possible causes. So it can be hard to find the reason for your pain. Giving details about your pain can help. Tell your provider where and when you feel the pain, and what makes it better or worse. Also let your provider know if you have other symptoms such as: Fever Tiredness Upset stomach (nausea) Vomiting Changes in bathroom habits Blood in the stool or black, tarry stool Weight loss that you can't explain (involuntary weight loss?) Also report any family history of stomach or intestinal problems, or cancers. Tell your provider about all your alcohol use and drug use. Tell your provider about all medicines you use, including herbs, vitamins, and supplements. Treating abdominal pain Some causes of pain need emergency medical treatment right away. These include appendicitis or a bowel blockage. Other problems can be treated with rest, fluids, or medicines. Your healthcare provider can give you specific instructions for treatment or self-care based on what is causing your pain. If you have vomiting or diarrhea, sip water or other clear fluids. When you are ready to eat solid foods again, start with small amounts of [id number], low-fat foods. These include apple sauce, toast, or crackers. When to get medical care Call 911 or go to the hospital right away if you: Can t pass stool and are vomiting Are vomiting blood or have bloody diarrhea or black, tarry diarrhea Have chest, neck, or shoulder pain Feel like you might pass out Have pain in your shoulder blades with nausea Have sudden, severe belly pain Have new, severe pain unlike any you have felt before Have a belly that is rigid, hard, and hurts to touch Call your healthcare provider if you have: Pain for more than 5 days Bloating for more than 2 days Diarrhea for more than 5 days A fever of 100.4 F (38 C) or higher, or as directed by your healthcare provider Pain that gets worse Weight loss for no reason Continued lack of appetite Blood in your stool How to prevent abdominal pain Here are some tips to help prevent abdominal pain: Eat smaller amounts of food at each meal. Don't eat greasy, fried, or other high-fat foods. Don't eat foods that give you gas. Exercise regularly. Drink plenty of fluids. To help prevent GERD symptoms: Quit smoking. Reduce alcohol and foods that increase stomach acid. Don't use aspirin or [id number] pain and fever medicines, if possible. This includes nonsteroidal anti-inflammatory drugs (NSAIDs). Lose excess weight. Finish eating at least 2 hours before you go to bed or lie down. Raise the head of your bed. [phone] [employer]. [address] [place] [address]. All rights reserved. This information is not intended as a substitute for professional medical care. Always follow your healthcare professional's instructions. Follow Up Care 04/19/2021 10:59:57 With:IAM WAYNE MD Address: [phone] When:2-4 days [facility] 04-02-2021 Hospital Discharg e instructions Patient Education 04/02/2021 12:54:28 Gastritis (Adult) Gastritis (Adult) Gastritis is inflammation and irritation of the stomach lining. You can have it for a short time (acute) or be long lasting (chronic). Infection with bacteria called H pylori most often causes gastritis. More than a third of people in the [place] have these bacteria in their bodies. In many cases, H pylori causes no problems or symptoms. In some people, though, the infection irritates the stomach lining and causes gastritis. H. pylori may be diagnosed through blood, stool, or breath tests, we well as through biopsy during an endoscopy. Other causes of stomach irritation include drinking alcohol, smoking or chewing tobacco, or taking pain-relieving medicines called NSAIDs (such as aspirin or ibuprofen). Certain drugs (such as cocaine) and immune conditions can also cause gastritis. Symptoms of gastritis can include: Belly pain or bloating Feeling full quickly Loss of appetite Nausea or vomiting Vomiting blood or having black stools Feeling more tired than usual An inflamed and irritated stomach lining is more likely to develop a sore called an ulcer. To help prevent this, gastritis should be treated. Home care If needed, our healthcare provider may prescribe medicines. If you have H pylori infection, treating it will likely relieve your symptoms. Other changes can help reduce stomach irritation and help it heal. If you have been prescribed medicines for H pylori infection, take them as directed. Take all of the medicine until it is finished or your healthcare provider tells you to stop, even if you feel better. Your healthcare provider may advise you not to take NSAIDs. If you take daily aspirin for your heart or other medical reasons, do not stop without talking to your healthcare provider first. Don't drink alcohol. Stop smoking. Smoking can irritate the stomach and delay healing. As much as possible, stay away from second hand smoke. Follow-up care Follow up with your healthcare provider, or as advised by our staff. You may need testing to check for inflammation or an ulcer. When to seek medical advice Call your healthcare provider for any of the following: Stomach pain that gets worse or moves to the lower right belly (appendix area) Chest pain that appears or gets worse, or spreads to the back, neck, shoulder, or arm Frequent vomiting (can t keep down liquids) Blood in the stool or vomit (red or black in color) Feeling weak or dizzy Shortness of breath Unexplained weight loss Fever of 100.4 F (38 C) or higher, or as directed by your healthcare provider [id number] [employer]. [address] [place] [address], [place] [address]. All rights reserved. This information is not intended as a substitute for professional medical care. Always follow your healthcare professional's instructions. Follow Up Care 04/02/2021 10:23:03 With:AFUA WOLF DO Address: [address] [place] [address] [place] [address]- When:2-4 days [facility] documented as of this encounter (statuses as of 01/26/2022) [facility] History of Past illness Narrative* Problem Noted Date Diagnosed Date Resolved Date Transient alteration of awareness 09/14/2015 03/01/2016 NO SHOW 02/12/2015 06/12/2016 Lipoma of unspecified site 06/07/2010 0 12/08/2010 Injury caused by lifting 02/22/2009 Right Sprain and Strain of Knee and Leg 01/22/2009 11/15/2009 Right Rotator Cuff Tear 01/22/200912/27 Gouty arthropathy 01/11/2009 02/15/2009 Lipoma of unspecified site 04/22/2008 0 11/15/2009 Sebaceous cyst 12/31/2007 11/15/2009 documented as of this encounter (statuses as of 03/07/2023) [facility] History of Past illness Narrative* Problem Noted Date Diagnosed Date Resolved Date Transient alteration of awareness 09/14/2015 03/01/2016 NO SHOW 02/12/2015 06/12/2016 Lipoma of unspecified site 06/07/2010 0 12/08/2010 Injury caused by lifting 02/22/2009 Right Sprain and Strain of Knee and Leg 01/22/2009 11/15/2009 Right Rotator Cuff Tear 01/22/200912/27 Gouty arthropathy 01/11/2009 02/15/2009 Lipoma of unspecified site 04/22/2008 0 11/15/2009 Sebaceous cyst 12/31/2007 11/15/2009 documented as of this encounter (statuses as of 03/20/2023) [facility] History of Past illness Narrative* Problem Noted Date Diagnosed Date Resolved Date Transient alteration of awareness 09/14/2015 03/01/2016 NO SHOW 02/12/2015 06/12/2016 Lipoma of unspecified site 06/07/2010 0 12/08/2010 Injury caused by lifting 02/22/2009 Right Sprain and Strain of Knee and Leg 01/22/2009 11/15/2009 Right Rotator Cuff Tear 01/22/200912/27 Gouty arthropathy 01/11/2009 02/15/2009 Lipoma of unspecified site 04/22/2008 0 11/15/2009 Sebaceous cyst 12/31/2007 11/15/2009 documented as of this encounter (statuses as of 04/11/2023) [facility] History of Past illness Narrative* Problem Noted Date Diagnosed Date Resolved Date Transient alteration of awareness 09/14/2015 03/01/2016 NO SHOW 02/12/2015 06/12/2016 Lipoma of unspecified site 06/07/2010 0 12/08/2010 Injury caused by lifting 02/22/2009 Right Sprain and Strain of Knee and Leg 01/22/2009 11/15/2009 Right Rotator Cuff Tear 01/22/200912/27 Gouty arthropathy 01/11/2009 02/15/2009 Lipoma of unspecified site 04/22/2008 0 11/15/2009 Sebaceous cyst 12/31/2007 11/15/2009 documented as of this encounter (statuses as of 04/27/2023) [facility] History of Past illness Narrative* Problem Noted Date Diagnosed Date Resolved Date Transient alteration of awareness 09/14/2015 03/01/2016 NO SHOW 02/12/2015 06/12/2016 Lipoma of unspecified site 06/07/2010 0 12/08/2010 Injury caused by lifting 02/22/2009 Right Sprain and Strain of Knee and Leg 01/22/2009 11/15/2009 Right Rotator Cuff Tear 01/22/2009 0812/2008 Gouty arthropathy 01/11/2009 02/15/2009 Lipoma of unspecified site 04/22/2008 0 11/15/2009 Sebaceous cyst 12/31/2007 11/15/2009 documented as of this encounter (statuses as of 07/14/2023) [facility] History of Past illness Narrative* Problem Noted Date Diagnosed Date Resolved Date Transient alteration of awareness 09/14/2015 03/01/2016 NO SHOW 02/12/2015 06/12/2016 Lipoma of unspecified site 06/07/2010 0 12/08/2010 Injury caused by lifting 02/22/2009 Right Sprain and Strain of Knee and Leg 01/22/2009 11/15/2009 Right Rotator Cuff Tear 01/22/200912/27 Gouty arthropathy 01/11/2009 02/15/2009 Lipoma of unspecified site 04/22/2008 0 11/15/2009 Sebaceous cyst 12/31/2007 11/15/2009 documented as of this encounter (statuses as of 07/14/2023) [facility] No data available for this section [facility] Evaluation note* Diagnosis Iritis, traumatic- Primary Unspecified iridocyclitis Retinal hemorrhage, right eye Retinal hemorrhage Punctate keratitis, bilateral documented in this encounter [facility] note* Diagnosis Iritis, traumatic- Primary Unspecified iridocyclitis Retinal hemorrhage, right eye Retinal hemorrhage Punctate keratitis, bilateral Posterior vitreous detachment of right eye Vitreous degeneration documented in this encounter [facility] note* Diagnosis Trigger ring finger of right hand- Primary Trigger finger (acquired) Trigger ring finger of right hand Trigger finger (acquired) documented in this encounter [facility] note* Diagnosis Constipation, unspecified constipation type documented in this encounter [facility] note* Diagnosis Constipation, unspecified constipation type- Primary documented in this encounter [facility] for referral (narrative)* Diagnostic Procedure Only (Routine) - Closed Specialty Diagnoses / Procedures Referred By Tri martinez Referred To Contact XR IMAGING Diagnoses Constipation, unspecified constipation type Procedures XR ABDOMEN 1V SUPINE RADIOLOGIC EXAM ABDOMEN 1 VIEW Iam Wayne MD [facility] [address] [address] [place] [id number] Referral ID Status Reason Start Date Expiration Date V isits Requested Visits Authorized [id number] Closed Auto-Generate d Referral 07/13/2023 08/11/2024 1 1 [facility] for visit Narrative* Diagnostic Procedure Only (Routine) - Closed Specialty Diagnoses / Procedures Referred By Tri martinez Referred To Contact XR IMAGING Diagnoses Constipation, unspecified constipation type Procedures XR ABDOMEN 1V SUPINE RADIOLOGIC EXAM ABDOMEN 1 VIEW Iam Wayne MD [address] [address] [place] [id number] Referral ID Status Reason Start Date Expiration Date V isits Requested Visits Authorized [id number] Closed Auto-Generate d Referral 07/13/2023 08/11/2024 1 1 [facility] Summary Purpose Family History No Family History Records FoundNo Family History Records FoundNo Family History Records FoundNo Family History Records FoundNo Family History Records Found Advance Directives No Advanced Directives Records FoundDocuments on File Type Date Recorded Patient 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 Expl anation Advance Directive(s) 07/11/2021 9:36 AM Documents on File Type Date Recorded Patient 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 Normal examination Right arm small hematoma Condition is stable DIET: Regular , Cardiac ACTIVITY AFTER DISCHARGE: Resume pre-hospital activity FOLLOW UP CARE REQUIRED: Dr CLAIRE JIMENEZ in 2 weeks DISCHARGE MEDICATIONS (ONLY ACTIVATE WHEN READY TO DISCHARGE): Current Discharge Medication List CONTINUE these medications which have NOT CHANGED aspirin 324 mg Take 324 mg by mouth one time only. MELATONIN ORAL 10 mg Take 10 mg by mouth daily at bedtime. ALPRAZolam (XANAX) 0.5 mg Take 0.5 mg by (more content not included)... Note HNO ID: [id number] Author: Keyona Jimenez Service: Interventional Cardiology Author Type: Physician Type: Procedures Filed: 11/27/2019 10:08 AM Note Text: LEFT HEART CATHETERIZATION PROCEDURE NOTE Surgery/Procedure Date: 11/27/2019 Referring Physician: Clinical History: This is a 69 year old male with history of CAD , RCA stent and Cx stent with angina Consent: Informed consent was obtained after the risks, benefits, and alternatives to and of this procedure were discussed in detail with the patient. Procedure in Detail: The patient was brought to the cardiac catheterization laboratory, prepped and draped in the usual sterile fashion. Anxiolysis was achieved with intravenous and intravenous benadryl. Local anesthesia was achieved over the right wrist with 1% lidocaine. A pre-flushed 6-Lebanese sheath was inserted into the Right radial artery via the Seldinger technique without complications. Retrograde percutaneous diagnostic coronary angiography and left ventriculography were performe (more content not included)... Procedure Findings Note HNO ID: [id number] Author: Keyona Jimenez Service: Interventional Cardiology Author Type: Physician Type: Procedures Filed: 11/27/2019 10:08 AM Note Text: LEFT HEART CATHETERIZATION PROCEDURE NOTE Surgery/Procedure Date: 11/27/2019 Referring Physician: Clinical History: This is a 69 year old male with history of CAD , RCA stent and Cx stent with angina Consent: Informed consent was obtained after the risks, benefits, and alternatives to and of this procedure were discussed in detail with the patient. Procedure in Detail: The patient was brought to the cardiac catheterization laboratory, prepped and draped in the usual sterile fashion. Anxiolysis was achieved with intravenous and intravenous benadryl. Local anesthesia was achieved over the right wrist with 1% lidocaine. A pre-flushed 6-Lebanese sheath was inserted into the Right radial artery via the Seldinger technique without complications. Retrograde percutaneous diagnostic coronary angiography and left ventriculography were performe (more content not included)... Medications Administered Section Inactive Administered Medications - up to 3 most recent administrations Medication Order MAR Action Action Date Dose Rate Site fluorescein-benoxinate 0.25-0.4 % 1 Drop (FLURESS) 1 Drop, BOTH EYES, DIRECTED, Starting on Sun03/06/23 at 1530, Until Sun03/07/23 at 0329, Administer for applanation tonometry. In the event of a Fluress shortage, administer Marybeth-Fluor 1 drop into both eyes as directed for applanation tonometry Given 03/06/2023 3:08 PM EDT 1 Drop PHENYLephrine 2.5 % 1 Drop (AK-DILATE, ARISTIDES-SYNEPHRINE) 1 Drop, BOTH EYES, DIRECTED, Starting on Sun03/06/23 at 1530, Until Sun03/07/23 at 0329, Administer for dilation PROTECT FROM LIGHT Given 03/06/2023 3:08 PM EDT 1 Drop proparacaine 0.5 % 1 Drop (ALCAINE) 1 Drop, BOTH EYES, DIRECTED, Starting on Sun03/06/23 at 1530, Until Sun03/07/23 at 0329, Administer for pneumo tonometry, tonopen tonometry, or pachymetry. In the event of a proparacaine shortage, administer tetracaine 0.5% ophthalmic drops 1 drop in the left eye as directed for pneumo tonometry, tonopen tonometry, or pachymetry Given 03/06/2023 3:08 PM EDT 1 Drop tropicamide 1 % 1 Drop (MYDRIACYL) 1 Drop, BOTH EYES, DIRECTED, Starting on Sun03/06/23 at 1530, Until Sun03/07/23 at 0329, Administer for dilation Given 03/06/2023 3:08 PM EDT 1 Drop Active Administered Medications - up to 3 most recent administrations Medication Order MAR Action Action Date Dose Rate Site PHENYLephrine 2.5 % 1 Drop (AK-DILATE, ARISTIDES-SYNEPHRINE) 1 Drop, RIGHT EYE, DIRECTED, Starting on Sun03/20/23 at 1030, Until Sun03/20/23 at 2229, Administer for dilation PROTECT FROM LIGHT Given 03/20/2023 10:13 AM EDT 1 Drop proparacaine 0.5 % 1 Drop (ALCAINE) 1 Drop, RIGHT EYE, DIRECTED, Starting on Sun03/20/23 at 1030, Until Sun03/20/23 at 2229, Administer for pneumo tonometry, tonopen tonometry, or pachymetry. In the event of a proparacaine shortage, administer tetracaine 0.5% ophthalmic drops 1 drop in the right eye as directed for pneumo tonometry, tonopen tonometry, or pachymetry Given 03/20/2023 10:13 AM EDT 1 Drop tropicamide 1 % 1 Drop (MYDRIACYL) 1 Drop, RIGHT EYE, DIRECTED, Starting on Sun03/20/23 at 1030, Until Sun03/20/23 at 2229, Administer for dilation Given 03/20/2023 10:13 AM EDT 1 Drop Additional Source Comments (unrecognized sect ion and content) No Status Records FoundNo Status Records FoundNo Status Records FoundNo Status Records FoundNo Status Records Found INFORMATION SOURCE (unrecogn ized section and content) DATE CREATED AUTHOR AUTHOR'S ORGANIZ ATION 01/21/2020 [facility] DATE CREATED AUTHOR AUTHOR'S ORGANIZ ATION 07/07/2021 [facility] ([place]) DATE CREATED AUTHOR AUTHOR'S ORGANIZ ATION 07/13/2021 [facility] DATE CREATED AUTHOR AUTHOR'S ORGANIZ ATION 07/16/2023 [facility] Source Comments (unrecognize d section and content) In the event this informatio n is protected by the Federal Confidentiality of Alcohol and Drug Abuse Patient Records regulations: The Federal rules restrict any use of the information to criminally investigate or prosecute any alcohol or drug abuse patient.[facility] the event this information is protected by the Federal Confidentiality of Alcohol and Drug Abuse Patient Records regulations: The Federal rules restrict any use of the information to criminally investigate or prosecute any alcohol or drug abuse patient.[facility] the event this information is protected by the Federal Confidentiality of Alcohol and Drug Abuse Patient Records regulations: The Federal rules restrict any use of the information to criminally investigate or prosecute any alcohol or drug abuse patient.[facility] the event this information is protected by the Federal Confidentiality of Alcohol and Drug Abuse Patient Records regulations: The Federal rules restrict any use of the information to criminally investigate or prosecute any alcohol or drug abuse patient.[facility] the event this information is protected by the Federal Confidentiality of Alcohol and Drug Abuse Patient Records regulations: The Federal rules restrict any use of the information to criminally investigate or prosecute any alcohol or drug abuse patient.[facility] the event this information is protected by the Federal Confidentiality of Alcohol and Drug Abuse Patient Records regulations: The Federal rules restrict any use of the information to criminally investigate or prosecute any alcohol or drug abuse patient.[facility] the event this information is protected by the Federal Confidentiality of Alcohol and Drug Abuse Patient Records regulations: The Federal rules restrict any use of the information to criminally investigate or prosecute any alcohol or drug abuse patient.[facility] Care Teams (unrecognized sec tion and content) Aerodynamic Consultant Relationship Specialty Start Date End Date Afua Wolf DO [address] [place] [address] PCP - General Family Medicine 07/11/21 Hannah Kowalski MD [address] [place] [address] Primary Staff Physician Cardiology 08/13/18 Aerodynamic Consultant Relationship Specialty Start Date End Date Afua Wolf DO [address] [place] [address] PCP - General Family Medicine 07/11/21 Hannah Kowalski MD [address] [place] [address] Primary Staff Physician Cardiology 08/13/18 Aerodynamic Consultant Relationship Specialty Start Date End Date Afua Wolf DO [address] [place], [place] [id number] PCP - General Family Medicine 07/11/21 Hannah Kowalski MD [address] [place] [address] Primary Staff Physician Cardiology 08/13/18 Aerodynamic Consultant Relationship Specialty Start Date End Date Afua Wolf DO [address] [place], [place] [id number] PCP - General Family Medicine 07/11/21 Hannah Kowalski MD [address] [place] [address] Primary Staff Physician Cardiology 08/13/18 Aerodynamic Consultant Relationship Specialty Start Date End Date Afua Wolf DO [address] [place], [place] [id number] PCP - General Family Medicine 07/11/21 Hannah Kowalski MD [address] [place], [place] [id number] Primary Staff Physician Cardiology 08/13/18 Aerodynamic Consultant Relationship Specialty Start Date End Date Afua Wolf DO [address] [place], [place] [id number] PCP - General Family Medicine 07/11/21 Hannah Kowalski MD [address] [place], [place] [id number] Primary Staff Physician Cardiology 08/13/18 Reason for Visit (unrecogniz ed section and content) Reason Comments Iritis Follow Up Reason Comments Schedule Surgery Reason Comments Medication Problem Reason Comments Consult EGD, stomach issues, 2021 last colonoscopy and EGD, constipation FOR RECORDS PERTAINING TO PATIENTS WHO ARE OR HAVE BEEN ENROLLED IN A CHEMICAL DEPENDENCY/SUBSTANCEABUSE PROGRAM, SOME INFORMATION MAY BE OMITTED. This clinical summary was aggregated from multiple sources. Caution should be exercised in using it in the provision of clinical care. This summary normalizes information from multiple sources, and as a consequence, information in this document may materially change the coding, format and clinical context of patient data. In addition, data may be omitted in some cases. CLINICAL DECISIONS SHOULD BE BASED ON THE PRIMARY CLINICAL RECORDS. [employer] [facility]. provides no warranty or guarantee of the accuracy or completeness of information in this document.
[2023-07-24 12:03] LABS: PSA,Total- Diagnostic 0.08 ng/mL (0.0-4.0)
--- NOTE | 2023-07-26 15:20 | STRESSREP_ITS ---
Stress Test Report Date: 07/24/2023 Procedure: Pharmacologic stress nuclear imaging study Indications: Chest pain Consent: Per the patient Procedure: The patient underwent pharmacologic (Regadenoson 0.4mg ) evaluation with a peak heart rate of 75 beats per minute (51%predicted maximal heart rate) and a peak blood pressure of 142/80 mmHg. The baseline ECG demonstrated sinus rhythm with rare PVCs. The peak pharmacologic ECG demonstrated no ischemic changes. Baseline PVC. Postinfusion, occasional PVCs noted. There was no complaint of chest discomfort during pharmacologic infusion or recovery. The patient was injected with 14.1 millicuries of technetium 99m Cardiolite and subsequently rest SPECT Cardiolite nuclear imaging was obtained in the horizontal long, vertical long, and short axis views. The patient underwent pharmacologic (Regadenoson) evaluation. The patient was injected with 43.5 millicuries of technetium 99m Cardiolite and subsequently stress SPECT Cardiolite nuclear imaging was obtained in the horizontal long, vertical long, and short axis views. A gated Cardiolite study at peak stress was obtained. The examination was stopped secondary to completion of protocol. Rest and stress SPECT Cardiolite nuclear imaging status post realignment, normalization, and attenuation correction demonstrate basal lateral perfusion defect consistent with prior infarct. Moderate yvette-infarct reversible ischemia. No gated study available Impression: 1. Pharmacologic (Regadenoson) evaluation 2. Peak pharmacologic ECG with no ischemic changes. 3. Occasional PVCs noted. 5. 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 6. No gated images available. This note was generated with [employer] software. It may contain incorrect words, spelling, and punctuation that were not noted in checking the note before signing.
== END | disposition home or self-care (01) ==
PROVIDERS: PCP Family Medicine; Referring Provider Urology; Visit Provider Urology
DX: N40.1 Benign prostatic hyperplasia with lower urinary tract symptoms (principal); R07.9 Chest pain, unspecified; I25.10 Atherosclerotic heart disease of native coronary artery without angina pectoris
CPT/HCPCS: 36415; 78452; 84153; 93017; A9500; A4216; J2785

== ENCOUNTER 2023-08-03 14:45 | Inpatient (IN) | payer MEDICARE, SELFPAY ==
[2020-01-05 11:37] VITALS: BMI 34.5
[2023-08-03] VITALS (10 sets, daily range): BP systolic 108–163; BP diastolic 54–97; PULSE 68–91; RESP 16–24; TEMP 36.4–36.6; O2SAT 93–98; BMI 32.1; BMI 30.7
--- NOTE | 2023-08-03 15:07 | EKG12_ITS ---
Test Reason : CP Blood Pressure : / mmHG Vent. Rate : 086 BPM Atrial Rate : 065 BPM P-R Int : 136 ms QRS Dur : 102 ms QT Int : 382 ms P-R-T Axes : 070 -30 064 degrees QTc Int : 457 ms NSR WITH FREQUENT PVCS Left axis deviation Abnormal ECG Confirmed by Tyrone Rodriguez ([id number]), sports editor ROBERTO RAHMAN ([id number]) on 08/07/2023 7:11:24 AM Referred By: ARA/ZAYDA Confirmed By:Tyrone Rodriguez
--- NOTE | 2023-08-03 15:10 | RAD_ITS ---
HISTORY: chest pain. TECHNIQUE: XR Chest 1 View. COMPARISON: 09:59 same day. 01/11/2023 FINDINGS: CARDIOMEDIASTINAL BORDERS: Borderline cardiomegaly with coronary artery disease and calcification of the aortic knob. Surgical clips in the left neck. LUNGS: Chronic left upper lobe fibrosis. Otherwise radiographically clear. PLEURA: No pleural effusion or pneumothorax seen. OSSEOUS STRUCTURES: Mild degenerative change. RAD/Chest 1 View (Portable) IMPRESSION: No significant interval change. Electronically Signed: Monica Santizo MD at 15:28 EST ,
--- NOTE | 2023-08-03 15:11 | ED.VIS.CHEST ---
HPI History of Present Illness Chief Complaint: Chest Pain Informant: patient Narrative Narrative: Patient is a 73-year-old male with history of coronary artery disease and STEMI, GERD, BPH, dementia, hypertension and ongoing chest pain (scheduled to have cardiac catheterization on 08/13) presenting with severe worsening of his chest pain. Patient states that around 145 this afternoon he suddenly had a sharp pain in the center of his chest. Denies any radiation. No to look in the mirror and he was pale as a ghost . Denies any diaphoresis or swelling. Does have some mild associated shortness of breath or like he could not breathe right. This feels different than the ongoing chest pain has been dealing with. He received 1 nitro and route which did cause a headache but it did also help with his chest pain however the chest pain has resumed. He also received 325 mg of aspirin and route via EMS. Notes he does been having ongoing GI issues and is chronically constipated with his last bowel movement 3 days ago. Denies abdominal pain at this time. Denies any ripping or tearing pain. Denies any numbness to his extremities. Patient notes he is also scheduled to have a scope done for this going GI issues couple weeks after his cath. Chart view shows that patient has a stress test on which showed occasional PVCs, basilar lateral defect stress of prior basal lateral infarct with mild to moderate yvette-infarct ischemia and no ischemic changes with peak physiologic EKG. Heart cath secondary to NSTEMI in 2018 with status post PCI to proximal left circumflex. [facility] Medical History (Updated 08/04/23 @ 00:[address] Alethea Jackson, DO) Alcoholism Anemia Anxiety Atherosclerosis of coronary artery without angina pectoris Back pain BiPAP (biphasic positive airway pressure) dependence Chronic pain Coronary artery disease Dementia Depression Essential (primary) hypertension GI hemorrhage Gout History of stress test Hyperlipidemia Hypertension Myocardial infarct Non-smoker NSTEMI (non-ST elevated myocardial infarction) (04/13/18) Obesity Pancreatitis Pulmonary embolism Rheumatoid arthritis Sleep apnea Traumatic brain injury Unstable angina Home Medications allopurinol 100 mg tablet 200 mg PO QHS gout 11/07/20 [History Last Taken 08/02/23] aspirin 81 mg chewable tablet 81 mg PO DAILY thinner 11/07/20 [History Last Taken 08/03/23] cholecalciferol (vitamin D3) 125 mcg (5,000 unit) tablet 50,000 unit PO WE supplement 11/07/20 [History Last Taken 08/01/23] colchicine 0.6 mg tablet (Colcrys) 0.6 mg PO PRN gout 11/07/20 [History Last Taken Unknown] finasteride 5 mg tablet 5 mg PO QHS urine retention 11/07/20 [History Last Taken 08/02/23] tamsulosin 0.4 mg capsule 0.4 mg PO QHS urinary retention 11/07/20 [History Last Taken 08/02/23] alprazolam 0.5 mg tablet (Xanax) 0.25 mg PO .COMPLEX anxiety 11/09/20 [History Last Taken 08/03/23 09:00] nitroglycerin 0.4 mg sublingual tablet 0.4 mg sublingual Q5M PRN Cardiac/Chest Pain #0 tabs 11/09/20 [Rx Last Taken Unknown] acetaminophen 500 mg tablet 1,000 mg (2 x 500 mg) PO Q6H PRN PRN Pain Score 1-3 #0 tabs 11/15/20 [Rx Last Taken Unknown] pantoprazole 40 mg tablet,delayed release 40 mg PO BID indigestion 01/11/23 [History Last Taken 08/03/23 10:00] metoprolol tartrate 25 mg tablet 25 mg PO BID #180 tabs 04/26/23 [Rx Last Taken 08/03/23 10:00] famotidine 40 mg tablet 40 mg PO BID 06/14/23 [History Last Taken 08/03/23 10:00] ondansetron 4 mg disintegrating tablet 4 mg PO Q8-12H PRN nausea 06/14/23 [History Last Taken 08/03/23] rosuvastatin 10 mg tablet 10 mg PO QHS 06/14/23 [History Last Taken 08/02/23] amlodipine 5 mg tablet 5 mg PO QHS 08/03/23 [History Last Taken 08/02/23] levofloxacin 500 mg tablet 500 mg PO Q24H 08/03/23 [History Last Taken 08/03/23] oxybutynin chloride 10 mg tablet,extended release 24 hr 10 mg PO QHS 08/03/23 [History Last Taken 08/02/23] Allergy/AdvReac Type Severity Reaction Status Date / Time isosorbide AdvReac Mild Headache Verified 08/03/23 14:46 Family History Mother CAD (coronary artery disease) Surgical History History of coronary artery stent placement (04/13/18) History of knee surgery History of repair of rotator cuff Hx of cholecystectomy Social History household members: spouse Smoking Status: Never smoker alcohol intake: former details: Sober since 2010. substance use type: does not use ROS ROS ED Constitutional Constitutional ED: Denies chills or fever(s) ENT ENT ED: Denies rhinorrhea Cardiovascular Cardiovascular: Reports as per HPI and chest pain Respiratory/Chest Respiratory/Chest: Reports dyspnea; Denies cough Gastrointestinal Gastrointestinal: Reports constipation; Denies abdominal pain, nausea or vomiting Genitourinary Genitourinary ED: Denies dysuria Integumentary Denies rash Neurologic Neurologic: Reports headache(s); Denies paresthesias or weakness Hematologic/Lymphatic Hematologic/Lymphatic: Denies easy bleeding or easy bruising EXAM Physical Exam Const Vital Signs: 08/03/23 14:46 08/03/23 14:52 08/03/23 15:10 Temperature 97.6 F L Temperature Source Temporal Pulse Rate 91 Respiratory Rate 18 Respiratory Effort Normal Blood Pressure Blood Pressure Mean Pulse Ox 96 Oxygen Delivery Method Room Air Nasal Cannula Oxygen Flow Rate (L/min) 2 08/03/23 15:14 08/03/23 15:15 08/03/23 16:00 Temperature Temperature Source Pulse Rate 85 80 68 Respiratory Rate 19 H 18 Respiratory Effort Blood Pressure 145/97 H 108/54 L 118/69 Blood Pressure Mean 71 85 Pulse Ox 98 96 Oxygen Delivery Method Oxygen Flow Rate (L/min) 08/03/23 17:00 08/03/23 18:00 08/03/23 18:33 Temperature 98 F Temperature Source Pulse Rate 75 74 75 Respiratory Rate 24 H 23 H 18 Respiratory Effort Blood Pressure 110/74 Blood Pressure Mean 86 Pulse Ox 97 93 96 Oxygen Delivery Method Oxygen Flow Rate (L/min) Positive well nourished and well developed General Appearance ED: well developed, NAD and pallor HEENT Reports moist mucous membranes Eyes PERRL and EOMs intact bilaterally Neck supple and no JVD Chest Wall inspection of chest normal and palpation of chest normal Resp normal respiratory effort and clear to auscultation bilaterally Cardio regular rate, regular rhythm and no murmurs Peripheral Pulses: pulses 2+ throughout GI normal to inspection, nondistended, normoactive bowel sounds and soft to palpation Extremity normal to inspection General Extremety ED: Negative for edema General Extremity: Negative for edema Neuro oriented x3 Sensorium / Orientation: awake Motor Exam: Negative for general weakness Psych mental status grossly normal Skin no rashes or lesions noted General Skin Exam: pallor Heart Score History: Highly Suspicious ECG: Normal Age: >/= 65 years Risk Factors: >/= 3 Risk Factors or History of CAD Troponin: </= Normal Limit Score: 6 MDM MDM MDM Narrative Medical decision making narrative: Patient presents for recurrent chest pain. Upon arrival patient is pale and 3 multiple PVCs on telemetry. He had improvement of pain with nitroglycerin and is given Nitropaste as well as Tylenol for headache. Patient is mildly hypertensive in the emergency room. Is on his baseline oxygen of 2 L. I since 2 troponins are stable at 21 and 23 respectively. Chest x-rays not show any acute process. EKG shows frequent PVCs but no acute ischemic changes. Patient does not have any respiratory symptoms and I have a low suspicion for pulmonary emboli. In addition he does not have any new O2 demands or tachypnea. He is not tachycardic. Given his history of coronary artery disease and plan for cardiac catheterization in 10 days with worsening chest pain I did discuss the case with cardiology on-call, Dr. Rodriguez. Discussed that likely patient would not require an emergent cath over the weekend but given his PVCs intermittently on bigeminy pattern, the story and his overall condition when he came in would be prudent to keep him in the hospital over the weekend to monitor him from a cardiac standpoint and then possibly arrange for cath on Sunday. Patient and are informed of this and that the likely will have to wait over the weekend for any intervention is done and intervention is not guaranteed. They understand and feel unsafe going home as well. Patient received aspirin en route via EMS. I do not think indication for heparin drip at this time. Lab Data Attestation: I reviewed the patient's lab results. Labs: Laboratory Results - last 24 hr 08/03/23 08/03/23 15:09 17:20 WBC 10.1 RBC 4.36 L Hgb 13.5 Hct 40.9 MCV 93.8 MCH 31.0 MCHC 33.0 RDW Std Deviation 44.4 H RDW Coeff of Leeann 13.0 Plt Count 184 MPV 10.2 Immature Gran % (Auto) 1.700 H Neut % (Auto) 57.5 Lymph % (Auto) 29.0 [place] % (Auto) 8.9 Eos % (Auto) 2.2 Baso % (Auto) 0.7 Absolute Neuts (auto) 5.8 Absolute Lymphs (auto) 2.92 Nucleated RBC % 0 PT 12.6 INR 0.9 APTT 32.8 Sodium 143 Potassium 4.0 Chloride 115 H Carbon Dioxide 18.0 L Anion Gap 10 BUN 20 H Creatinine 1.24 Estim Creat Clear Calc 55.86 Est GFR (MDRD) Af Amer 74 Est GFR (MDRD) Non-Af 61 BUN/Creatinine Ratio 16.1 Glucose 88 Calcium 9.0 Magnesium 2.3 Total Bilirubin 0.30 AST 22 ALT 27 Alkaline Phosphatase 65 Troponin I High Sens 21 23 Total Protein 7.1 Albumin 3.8 Globulin 3.3 Albumin/Globulin Ratio 1.2 Lipase 61 Radiography Chest X-Ray - ED: 1 View, Read by ED Physician, Read by Radiologist and No Acute Disease Diagnostic Testing: Clinical Impression(s) from Imaging Studies Chest X-Ray 08/03/23 15:10 IMPRESSION: No significant interval change. Electronically Signed: Monica Santizo MD at 15:28 EST Reading Location ID and State: [facility] / [place] Tel , Service support , Rhythm Strip Rhythm Strip: Sinus Rhythm Rate: 86 Ectopy: PVC(s) EKG Initial EKG: Attestation: I personally reviewed and interpreted this EKG as follows: Interpretation: Sinus Rhythm Comments: Normal sinus rhythm rate of 86 bpm Left axis deviation Normal ST segments and intervals Frequent PVCs present which are new compared to prior EKG Discharge Plan Dx/Rx/DC Orders Clinical Impression: Chest pain, Essential (primary) hypertension, Multifocal PVCs with pairing, CAD S/P percutaneous coronary angioplasty Disposition Disposition: Acute Care Hospital [facility] Discharge Date/Time: 08/03/23 20:14
[2023-08-03] MEDS: Nitroglycerin Oint 1 INCH PACKET TD (15:14)
[2023-08-03] MEDS: Acetaminophen 325 MG Tablet 650 MG PO (15:15)
[2023-08-03 15:37] LABS: Absolute Lymphocyte Count 2.92 X10^3/uL (0.83-4.51); Absolute Neutrophil Count 5.8 X10^3/uL (2.0-7.7); Basophil# 0.07 X10^3/uL; Basophil% 0.7 % (0-1); Eosinophil# 0.22 X10^3/uL; Eosinophils% 2.2 % (0-5); Hematocrit 40.9 % (40-54); Hemoglobin 13.5 g/dL (13.0-16.5); Lymphocyte # 2.92 X10^3/ul (0.83-4.51); Mean Corpuscular Volume 93.8 fL (80-94); Mean Platelet Vol. 10.2 fl (6.2-12.0); Monocyte% 8.9 % (0-10); NRBC Flagged by Analyzer 0 % (0-5); Neutrophil % 57.5 % (47-70); Platelet Count 184 K/mm3 (150-450); RBC Distribution Width SD 44.4 fl (35.1-43.9); Red Blood Count 4.36 M/mm3 (4.6-6.2); White Blood Count 10.1 K/mm3 (4.4-11.0)
[2023-08-03 15:42] LABS: International Normalized Ratio 0.9; Prothrombin Time (Protime)PT. 12.6 SECONDS (11.7-14.9)
[2023-08-03 15:43] LABS: Partial Thromboplast Time 32.8 Seconds (24.1-36.2)
[2023-08-03 15:45] LABS: ALB/GLOB Ratio 1.2 RATIO (0.9-2.4); AST(SGOT) 22 U/L (15-37); Alanine Aminotransfer ALT/SGPT 27 U/L (16-61); Albumin, Serum 3.8 g/dL (3.2-5.0); Alkaline Phosphatase 65 U/L (45-117); Anion Gap 10 (5-15); BUN 20 mg/dL (7-18); BUN/Creat Ratio 16.1 RATIO (10-20); Chloride 115 mmol/L (98-107); Creatinine, Serum 1.24 mg/dL (0.70-1.30); EST Glomerular Filtration Rate 61 mL/min (>60); Est Glom Filt Rate - Afr Amer 74 mL/min (>60); Estimated Creatinine Clearance 55.86 ml/min; Globulin 3.3 g/dL (2.2-4.2); Glucose 88 mg/dL (74-106); Lipase 61 U/L (13-75); Magnesium 2.3 mg/dL (1.6-2.6); Protein, Total 7.1 g/dL (6.4-8.2); Sodium Level 143 mmol/L (136-145); Troponin-I HS (w/2H Reflex) 21 pg/mL (3.0-78.0)
[2023-08-03] MEDS: 0.9% Normal Saline (500mL Bag) 500 ML 999 ML IV (16:59)
[2023-08-03 17:21] LABS: Reflex Troponin-HS? (from REC) Y
[2023-08-03 17:57] LABS: Troponin-I HS 23 pg/mL (3.0-78.0)
--- NOTE | 2023-08-03 18:28 | HP.PCM_ITS ---
HPI - General General Date of Admission: 08/03/23 Date of Service: 08/03/23 Chief Complaint: chest pain HPI Narrative SEBASTIEN BARON, is a 73 M with a PMH as outlined who who presents via the ED on 08/03/2023 with a complaint of chest pain. 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 However, he started having severe chest pain this afternoon at around 13:45. He denied any lightheadedness or dizziness, and admitted to a headache. He denied any shortness of breath. Review of systems is otherwise negative. He also said he had been having ongoing GI issues, with chronic constipation and has been scheduled to have a GI scope after his cath. He had had a stress test on 07/26/2023 which showed mild to moderate yvette infarct ischemia and no ischemic changes. VItals in the ED were temp of 97.6F, KS of 74, BP of 118/69 and RR of 23. He was saturating at 93% on 2L of oxygen. CBC was largely unremarkable, and BMP showed bicarb of 18 with anion gap of 10. Troponin and its delta were both negative. EKG showed PVCs but no acute ST changes. He is being admitted to be managed for unstable angina. [facility] Medical History (Updated 08/03/23 @ 18:[address] Mechelle Marquez MD) Alcoholism Anemia Anxiety Atherosclerosis of coronary artery without angina pectoris Back pain BiPAP (biphasic positive airway pressure) dependence Chronic pain Coronary artery disease Dementia Depression Essential (primary) hypertension GI hemorrhage Gout History of stress test Hyperlipidemia Hypertension Myocardial infarct Non-smoker NSTEMI (non-ST elevated myocardial infarction) (04/13/18) Obesity Pancreatitis Pulmonary embolism Rheumatoid arthritis Sleep apnea Traumatic brain injury Unstable angina Home Medications allopurinol 100 mg tablet 200 mg PO QHS gout 11/07/20 [History Last Taken 08/02/23] aspirin 81 mg chewable tablet 81 mg PO DAILY thinner 11/07/20 [History Last Taken 08/03/23] cholecalciferol (vitamin D3) 125 mcg (5,000 unit) tablet 50,000 unit PO WE supplement 11/07/20 [History Last Taken 08/01/23] colchicine 0.6 mg tablet (Colcrys) 0.6 mg PO PRN gout 11/07/20 [History Last Taken Unknown] finasteride 5 mg tablet 5 mg PO QHS urine retention 11/07/20 [History Last Taken 08/02/23] tamsulosin 0.4 mg capsule 0.4 mg PO QHS urinary retention 11/07/20 [History Last Taken 08/02/23] alprazolam 0.5 mg tablet (Xanax) 0.25 mg PO .COMPLEX anxiety 11/09/20 [History Last Taken 08/03/23 09:00] nitroglycerin 0.4 mg sublingual tablet 0.4 mg sublingual Q5M PRN Cardiac/Chest Pain #0 tabs 11/09/20 [Rx Last Taken Unknown] acetaminophen 500 mg tablet 1,000 mg (2 x 500 mg) PO Q6H PRN PRN Pain Score 1-3 #0 tabs 11/15/20 [Rx Last Taken Unknown] pantoprazole 40 mg tablet,delayed release 40 mg PO BID indigestion 01/11/23 [History Last Taken 08/03/23 10:00] metoprolol tartrate 25 mg tablet 25 mg PO BID #180 tabs 04/26/23 [Rx Last Taken 08/03/23 10:00] famotidine 40 mg tablet 40 mg PO BID 06/14/23 [History Last Taken 08/03/23 10:00] ondansetron 4 mg disintegrating tablet 4 mg PO Q8-12H PRN nausea 06/14/23 [History Last Taken 08/03/23] rosuvastatin 10 mg tablet 10 mg PO QHS 06/14/23 [History Last Taken 08/02/23] amlodipine 5 mg tablet 5 mg PO QHS 08/03/23 [History Last Taken 08/02/23] levofloxacin 500 mg tablet 500 mg PO Q24H 08/03/23 [History Last Taken 08/03/23] oxybutynin chloride 10 mg tablet,extended release 24 hr 10 mg PO QHS 08/03/23 [History Last Taken 08/02/23] Allergy/AdvReac Type Severity Reaction Status Date / Time isosorbide AdvReac Mild Headache Verified 08/03/23 14:46 Family History Mother CAD (coronary artery disease) Surgical History History of coronary artery stent placement (04/13/18) History of knee surgery History of repair of rotator cuff Hx of cholecystectomy Social History household members: spouse Smoking Status: Never smoker alcohol intake: former details: Sober since 2010. substance use type: does not use ROS Review of Systems ROS Unobtainable: Denies due to encephalopathy Constitutional Constitutional: Reports fatigue and malaise; Denies anorexia, chills, fever(s) or weakness Eyes Eyes: Denies change in vision ENT HEENT: Denies dysphagia or headache(s) Cardiovascular Cardiovascular: Reports chest pain; Denies edema, orthopnea, palpitations, paroxysmal nocturnal dyspnea or syncope Respiratory/Chest Respiratory/Chest: Denies cough, shortness of breath at rest or shortness of breath with exertion Gastrointestinal Gastrointestinal: Denies abdominal pain, nausea or vomiting Genitourinary Genitourinary: Denies dysuria Musculoskeletal Musculoskeletal: Denies back pain Neurologic Neurologic: Denies confusion, dizziness, focal weakness, headache(s), numbness, seizures or weakness Psychiatric Psychiatric: Denies anxiety Vital Signs Vital Signs Vital Signs: 08/03/23 14:46 08/03/23 14:52 08/03/23 15:10 Temperature 97.6 F L Temperature Source Temporal Pulse Rate 91 Respiratory Rate 18 Respiratory Effort Normal Blood Pressure Blood Pressure Mean Pulse Ox 96 Oxygen Delivery Method Room Air Nasal Cannula Oxygen Flow Rate (L/min) 2 08/03/23 15:14 08/03/23 15:15 08/03/23 16:00 Temperature Temperature Source Pulse Rate 85 80 68 Respiratory Rate 19 H 18 Respiratory Effort Blood Pressure 145/97 H 108/54 L 118/69 Blood Pressure Mean 71 85 Pulse Ox 98 96 Oxygen Delivery Method Oxygen Flow Rate (L/min) 08/03/23 17:00 08/03/23 18:00 Temperature Temperature Source Pulse Rate 75 74 Respiratory Rate 24 H 23 H Respiratory Effort Blood Pressure Blood Pressure Mean Pulse Ox 97 93 Oxygen Delivery Method Oxygen Flow Rate (L/min) Weight Weight: 199 lb 4.766 oz Body Mass Index (BMI) 32.1 Physical Exam Const alert, oriented x3, no apparent distress and well nourished General Appearance: cooperative and well developed HEENT normocephalic, head/scalp atraumatic and moist oral mucous membranes Eyes PERRL and EOMs intact bilaterally Neck no lymphadenopathy and supple Lymph Lymphatic: no lymphadenopathy noted and no lymphedema noted Resp normal respiratory effort, normal air movement and clear to auscultation bilate rally Cardio regular rate, regular rhythm, S1 normal heart sound, S2 normal heart sound and no murmurs GI normal to inspection, nondistended, normoactive bowel sounds, soft to palpation and non-tender Extremity normal capillary refill, no clubbing, cyanosis or edema and no calf tenderness General Extremity: no tenderness to palpation of joints or extremities Skin General Skin Exam: no breakdown and turgor normal Neuro CN's II-XII intact bilaterally, no focal motor deficits and no sensory deficits noted Motor Exam: strength 5/5 throughout and general weakness Psych thought process normal and cooperative Appearance: appropriate Results Lab / Micro Data 08/03/23 15:09 08/03/23 15:09 Labs: Laboratory Results - last 24 hr 08/03/23 15:09: WBC 10.1, RBC 4.36 L, Hgb 13.5, Hct 40.9, MCV 93.8, MCH 31.0, MCHC 33.0, RDW Std Deviation 44.4 H, RDW Coeff of Leeann 13.0, Plt Count 184, MPV 10.2, Immature Gran % (Auto) 1.700 H, Neut % (Auto) 57.5, Lymph % (Auto) 29.0, Schleicher % (Auto) 8.9, Eos % (Auto) 2.2, Baso % (Auto) 0.7, Absolute Neuts (auto) 5.8, Absolute Lymphs (auto) 2.92, Nucleated RBC % 0, PT 12.6, INR 0.9, APTT 32.8, Sodium 143, Potassium 4.0, Chloride 115 H, Carbon Dioxide 18.0 L, Anion Gap 10, BUN 20 H, Creatinine 1.24, Estim Creat Clear Calc 55.86, Est GFR (MDRD) Af Amer 74, Est GFR (MDRD) Non-Af 61, BUN/Creatinine Ratio 16.1, Glucose 88, Shoaib cium 9.0, Magnesium 2.3, Total Bilirubin 0.30, AST 22, ALT 27, Alkaline Phosphatase 65, Troponin I High Sens 21, Total Protein 7.1, Albumin 3.8, Globulin 3.3, Albumin/Globulin Ratio 1.2, Lipase 61 08/03/23 17:20: Troponin I High Sens 23 Rhythm Strip Rhythm Strip: Sinus Rhythm Rate: 86 Ectopy: PVC(s) Imaging Radiology Impression Chest X-Ray 08/03/23 15:10 IMPRESSION: No significant interval change. Electronically Signed: Monica Santizo MD at 15:28 EST Reading Location ID and State: [facility] / [place] Tel , Service support , Assessment & Plan Assessment/Plan (1) Unstable angina: PLAN: Plan #Chest pain in the setting of unstable angina * admit to PCU * had an abnormal stress test at the end of June 2023. Is scheduled to have a cardiac cath on 08/14/2023. * However he woke up with chest pain today which was pressure-like and relentless. * EKG shows PVCs but no acute ST changes. * Troponins x 2 are negative. * Consult cardiology. P.o. aspirin, sublingual nitroglycerin as needed * Continue metoprolol and high intensity statin. Consult cardiology for likely cath on Sunday unless he deteriorates over the weekend. * * #CAD s/p stents * On aspirin, high intensity statin and metoprolol. #Hypertension: On metoprolol and amlodipine. #BPH: On Flomax and finasteride. DVT prophylaxis: Lovenox COde status: full code * Patient counseled extensively about different types of CODE STATUS including full code, DNR CCA and DNR CCA. Patient elects to be full code. Total [id number] time 16 minutes. Charges/Coding Visit Charges Inpatient E&M: 36276 Init Hosp L3 Procedures Hospitalists Procedures: 05100 Advncd Care Plan 30 Min
--- OUTSIDE RECORDS SUMMARY | 2023-08-03 19:15 | XMS RPT_ITS | CCD ---
Author Name Unknown Address [id number] [place] [address] Organization [facility] Care Team Providers Care Core Loader Name Role Phone DR AFUA WOLF DO A Primary Care Physician [phone] Yani Mendoza MD, Hannah Unavailable Afua Wolf [...] [tramadol] Drug Allergy 09-25-2019 Other: See Comments [facility] (8 sources) Mold Extract; Translations: [MOLD] Drug Allergy 09-20-2017 Other: See Comments [facility] Medications Current Medications Medication Drug Class(es) Dates [...] sources) Opioid Agonist Start: 09-18-2020 End: 09-20-2020 [place] Laager 325- 5 mg oral tablet Dose = 1 tab(s), Oral, q4h, PRN Pain, scale 4-10, # 12 tab(s), 0 Refill(s), Pharmacy: [id number], Intractable abdominal pain, 167.6, cm, 09/17/20 12:52:00 EDT, Height, 80.8, kg, 09/17/20 12:52:00 EDT, Dosing Weight Start Date: 09/18/20 Stop Date: 09/20/20 Status: Ordered Acetylcysteine (7 sources) Antidote, Mucolytic, Antidote for Acetaminophen Overdose Start: 01-27-2019 take 1 capsule by mouth once daily acetylcysteine (E-DGZNEJ-V-CYSTEIN E MISC) Take 1 capsule by mouth [...] Coronary arteriosclerosis; Translations: [Atherosclerotic heart disease of [place] coronary artery without angina pectoris] Onset: 9 [...] and due to atherosclerosis; Translations: [Atherosclerosis of [place] arteries of extremities with intermittent claudication, bilateral [...] 07-13-2023 15:25-0500 Body height 167.6 cm Iam Wayne MD Work Phone: [facility] 07-13-2023 15:25-0500 Body temperature 97.81 [degF] Iam Wayne MD Work Phone: [facility] 07-13-2023 15:25-0500 Body weight 86.91 kg Iam Wayne MD Work Phone: [facility] 07-13-2023 15:25-0500 Diastolic blood pressure 74 mm[Hg] Iam Wayne MD Work Phone: [facility] 07-13-2023 15:25-0500 Heart rate 68 /min Iam Wayne MD Work Phone: [facility] 07-13-2023 15:25-0500 SaO2% (BldA) [Mass fraction] 96 % Iam Wayne MD Work Phone: [facility] 07-13-2023 15:25-0500 Systolic blood pressure 128 mm[Hg] Iam Wayne MD Work Phone: [facility] 04-19-2021 12:22-0500 Diastolic blood pressure 84 mm[Hg] VIJAY HUYNH DO [facility] 04-19-2021 12:22-0500 Heart rate 64 /min VIJAY HUYNH DO [facility] 04-19-2021 12:22-0500 Mean blood pressure 102 mm[Hg] VIJAY HUYNH DO [facility] 04-19-2021 12:22-0500 Respiratory rate 16 /min VIJAY HUYNH DO [facility] 04-19-2021 12:22-0500 Systolic blood pressure 137 mm[Hg] VIJAY HUYNH DO [facility] 04-19-2021 11:06-0500 Body temperature 97.7 [degF] VIJAY HUYNH DO [facility] 04-19-2021 11:06-0500 Diastolic blood pressure 74 mm[Hg] VIJAY HUYNH DO [facility] 04-19-2021 11:06-0500 Heart rate 80 /min VIJAY HUYNH DO [facility] 04-19-2021 11:06-0500 Mean blood pressure 86 mm[Hg] VIJAY HUYNH DO [facility] 04-19-2021 11:06-0500 Respiratory rate 16 /min VIJAY HUYNH DO [facility] 04-19-2021 11:06-0500 Systolic blood pressure 111 mm[Hg] VIJAY HUYNH DO [facility] 04-02-2021 10:25-0400 Body temperature 98.06 [degF] DR JENNIFER ARNETT MD [facility] 04-02-2021 10:25-0400 Diastolic blood pressure 73 mm[Hg] DR JENNIFER ARNETT MD [facility] 04-02-2021 10:25-0400 Heart rate 88 /min DR JENNIFER ARNETT MD [facility] 04-02-2021 10:25-0400 Respiratory rate 16 /min DR JENNIFER ARNETT MD [facility] 04-02-2021 10:25-0400 Systolic blood pressure 109 mm[Hg] DR JENNIFER ARNETT MD [facility] Encounters Encounter Date Encounter Type Care Provider Facility Start: 07-13-2023 End: 07-13-2023 Subsequent hospital visit by physician Xr [facility] Work Phone: Radiology Procedures Date Procedure [...] panel - Serum or Plasma Lipid Screening [facility] Start: 03-28-2027 Lipid panel Lipid Screening [facility] Start: 07-11-2026 Colonoscopy COLONOSCOPY [facility] Start: 07-11-2026 COLORECTAL CANCER SCREENING COLORECTAL CANCER SCREENING [facility] Start: 07-11-2026 Screening for malignant neoplasm of colon [facility] Start: 09-28-2025 LIPID SCREEN LIPID SCREEN [facility] Start: 07-13-2024 BP Controlled (<130/80) BP Controlled (<130/80) [facility] Start: 03-10-2024 Urine microalbumin profile [facility] Start: 12-24-2023 DIABETES SCREEN DIABETES SCREEN [facility] Start: 12-24-2023 Diabetes Screening Diabetes Screening [facility] Start: 05-28-2023 Advance Directive Discussion Advance Directive Discussion [facility] Start: 03-28-2023 Hepatitis B surface antibody level LDL Cholesterol [facility] Start: 01-26-2023 Influenza vaccination Influenza Vaccine (#[facility]) [facility] Start: 05-28-2022 Advance Directive Discussion Advance Directive Discussion [facility] Start: 01-26-2022 Influenza vaccination INFLUENZA (#1) [facility] Start: 11-22-2021 ANNUAL PCP TEAM CHRONIC DISEASE VISIT ANNUAL PCP TEAM CHRONIC DISEASE VISIT [facility] Start: 09-28-2021 Hepatitis B surface antibody level LDL CHOLESTEROL [facility] Start: 09-23-2021 FECAL OCCULT BLOOD FECAL OCCULT BLOOD [facility] Start: 09-23-2021 Screening for malignant neoplasm of colon Fecal Occult Blood [facility] Start: 08-24-2021 BP CONTROLLED (<130/80) BP CONTROLLED (<130/80) [facility] Start: 05-28-2021 ADVANCE DIRECTIVE DISCUSSION ADVANCE DIRECTIVE DISCUSSION [facility] Start: 2015 Pneumococcal Vaccine: 65+ (1 - PCV) Pneumococcal Vaccine: 65+ (1 - PCV) [facility] Start: 2015 Pneumococcal Vaccine: 65+ (1 of 1 - PCV) Pneumococcal Vaccine: 65+ (1 of 1 - PCV) [facility] Start: 2015 PNEUMOCOCCAL: 65+ (1 - PCV) PNEUMOCOCCAL: 65+ (1 - PCV) [facility] Start: 2010 Hepatitis B Vaccine (1 of 3 - Risk 3-dose series) Hepatitis B Vaccine (1 of 3 - Risk 3-dose series) [facility] Start: 2010 RSV Vaccine (1 - 1-dose 60+ series) RSV Vaccine (1 - 1-dose 60+ series) [facility] Start: 2000 SHINGRIX VACCINE (1 of 2) SHINGRIX VACCINE (1 of 2) [facility] Start: 1995 COLOGUARD (FIT-DNA) COLOGUARD (FIT-DNA) [facility] Start: [address] COLONOGRAPHY [facility] Start: 1995 Screening for malignant neoplasm of colon [facility] Start: 1995 SIGMOIDOSCOPY SIGMOIDOSCOPY [facility] Start: 1969 Hepatitis A Vaccine (1 of 2 - Risk 2-dose series) Hepatitis A Vaccine (1 of 2 - Risk 2-dose series) [facility] Start: 01-09-1951 COVID-19 VACCINE (#1) COVID-19 VACCINE (#1) [facility] XR Abdomen Supine an d Upright XR ABDOMEN 1V SUPINE Radiology Routine Constipation, unspecified constipation type 07/13/2023 4:26 PM EST [facility] Work Phone: End: 08-11-2024 XR Abdomen Supine and Upright XR ABDOMEN 1V SUPINE Radiology Routine Constipation, unspecified constipation type 1 Occurrences starting 07/13/2023 until 08/11/2024 [facility] Work Phone: Immunizations Immunization Date Immunization Notes Care Provider Josi daugherty 04-10-2018 influenza virus vaccine, unspecified formulation Meredith Agustin OD Work Phone: [facility] 03-10-2014 tetanus toxoid, redu honorio diphtheria toxoid, and acellular pertussis vaccine, adsorbed Xr Mob Work Phone: [facility] Work Phone: Payers Date Payer Category Payer Medicare [id number] 2021 Unknown [id number] Social History Date Type Detail Facility Start: 09-17-2020 End: 03-06-2023 Never smoked tobacco (finding) [facility] Sex Assigned At [facility] Start: 02-07-2013 End: 03-06-2023 Tobacco use and exposure Smokeless tobacco non-user [facility] Start: 07-15-2021 End: 07-13-2023 Alcohol intake Current non-drinker of alcohol (finding) [facility] Start: 07-15-2021 End: 03-06-2023 Alcohol intake [facility] Start: 04-27-2020 End: 08-12-2020 History SDOH Alcohol Frequency 1 [facility] Start: 02-22-2009 History SDOH Alcohol Comment 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 [facility] Start: 09-25-2019 History SDOH Social Connections Phone 3 [facility] Start: 09-25-2019 End: 08-12-2020 History SDOH Social Connections Get Together 2 [facility] Start: 09-25-2019 History SDOH Physical Activity DPW 6 [facility] Start: 09-25-2019 History SDOH Physical Activity MPS 4 [facility] Start: 09-25-2019 History SDOH Financial 5 [facility] Start: 09-25-2019 Education 12 [facility] Start: 1950 Sex Assigned At Male [facility] Start: 09-25-2019 End: 03-06-2023 Social connection and isolation panel [facility] Do you belong to any clubs or organizations such as tenriism groups, unions, fraternal or athletic groups, or school groups? No [facility] Are you now , , , , never or living with a partner? [facility] How often to you hav e a drink containing alcohol? Never [facility] Average Number of Drinks Not on file [facility] Do you feel stress - tense, restless, nervous, or anxious, or unable to sleep at night because your mind is troubled all the time - these days [OSQ] To some extent [facility] (I/We) worried wheth er (my/our) food would run out before (I/we) got money to buy more. Never true [facility] Start: 01-28-2019 Gender identity Identifies as male gender (finding) [facility] Start: 01-28-2019 Sexual orientation Heterosexual (finding) [facility] Medical Equipment Procedure Code Equipment Code Equipment Origin al Text Equipment Identifier Dates [employer] [id number] - [id number] Start: 03-23-2011 Clinical Notes 09-14-2015 to 07-13-2023 Thi Patton RT(R) - 07/13/2023 4:20 PM Iam Neri MD - 07/13/2023 3:50 PM Pratibha Whitley LPN - 07/13/2023 3:25 PM Meredith Bazzi OD - 03/20/2023 10:48 AM EDT Note Date & Type Note Facility 07-13-2023 Note HNO ID: [id number] Author: THI PATTON RT(R) Service: Radiology Author [...] PATIENT PRESENTS WITH AN IMPLANTABLE OR ATTACHED CARD STRIPPER: No RADIOLOGY DEPARTMENT: General X-ray: Exam(s) Completed: Abdomen X-Ray: Abdomen PERIPHERAL IV DATA: Not applicable SIGNED BY: RT Long(R) July 13, 2023 4:19 PM [facility] 07-13-2023 Note HNO ID: [id number] Author: IAM WAYNE MD Service: ? Author Type: Physician Type: Progress Notes Filed: 07/18/2023 17:23 Note Text: 07/13/2023 Panfilo Owens [id number] SURGEON: Dr. Wayne PRIMARY DIAGNOSIS: Nausea, Bloating, [...] Denies hematochezia or melena. HISTORY/REVIEW OF SYSTEMS: MANAGER JAVA: no history of CVA, TIA's or seizures reported. RESP: patient denies a history of any respiratory problems. CARD: HX of cardiac stents and [place]. GI: Endorses GERD and hx of bleeding [...] 09/18/2016 normal EGD TRANSORAL BIOPSY SINGLE/MULTIPLE 09/29/2010 [facility] inpt H-pylori negative EGD TRANSORAL BIOPSY SINGLE/MULTIPLE 09/18/2016 mild gastritis, GERD EGD W/O [facility] SPEC VARICIES INJ 07/11/2021 ESOPHAGOGASTRODUODENOSCOPY TRANSORAL DIAGNOSTIC 03/29/2009 [facility] inpt EGD H-pylori negative ESOPHAGOGASTRODUODENOSCOPY TRANSORAL DIAGNOSTIC [...] otherwise normal. PLAN: -Schedule for EGD/Colonoscopy at [facility] with MAC anesthesia -2 day golytely prep Mishel Mckeon, DO General Surgery PGY5 I saw and evaluated the patient. Discussed with the resident and agree with resident's findings and plan as documented in the resident's note. Iam Wayne MD I obtained a KUB which demonstrated very significant fecal loading. I discussed with the patient that he tried his bowel regime over the weekend but did not actually results until a couple days previously. I discussed with him that I would recommend a 2-day GoLytely prep and to try his bowel regime probably 3 to 4 days prior to starting the prep and staying on clear liquids during that time. [facility] 07-13-2023 History of Presen t illness [...] PATIENT PRESENTS WITH AN IMPLANTABLE OR ATTACHED CARD STRIPPER: No RADIOLOGY DEPARTMENT: General X-ray: Exam(s) Completed: Abdomen X-Ray: Abdomen PERIPHERAL IV DATA: Not applicable SIGNED BY: RT Long(R) July 13, 2023 4:19 PM documented in this encounter [facility] 07-13-2023 History of Presen t illness Narrative 07/13/2023 Panfilo Owens [id number] SURGEON: Dr. Wayne PRIMARY DIAGNOSIS: Nausea, Bloating, [...] Denies hematochezia or melena. HISTORY/REVIEW OF SYSTEMS: MANAGER JAVA: no history of CVA, TIA's or seizures reported. RESP: patient denies a history of any respiratory problems. CARD: HX of cardiac stents and [place]. GI: Endorses GERD and hx of bleeding [...] 09/18/2016 normal EGD TRANSORAL BIOPSY SINGLE/MULTIPLE 09/29/2010 [facility] inpt H-pylori negative EGD TRANSORAL BIOPSY SINGLE/MULTIPLE 09/18/2016 mild gastritis, GERD EGD W/O [facility] SPEC VARICIES INJ 07/11/2021 ESOPHAGOGASTRODUODENOSCOPY TRANSORAL DIAGNOSTIC 03/29/2009 [facility] inpt EGD H-pylori negative ESOPHAGOGASTRODUODENOSCOPY TRANSORAL DIAGNOSTIC [...] otherwise normal. PLAN: -Schedule for EGD/Colonoscopy at [facility] with MAC anesthesia -2 day golytely prep Mishel Mckeon DO General Surgery PGY5 I saw and evaluated the patient. Discussed with the resident and agree with resident's findings and plan as documented in the resident's note. Iam Wayne MD documented in this encounter [facility] 07-13-2023 Nurse Note REVIEW OF SYSTEMS: General: [...] Pratibha Parsons LPN documented in this encounter [facility] 04-13-2023 Miscellaneous Notes Patient called back again asking for pain medication for patient, post surgery from yesterday, trigger finger. Please send to [facility]. Patient would like to contacted via phone or [place] when medication is sent in to pharmacy. [...] about 1 hour post surgery today. Talita Steward, RN documented in this encounter [facility] 04-10-2023 Miscellaneous Notes Post op appointments have been scheduled and mailed to the patient. Surgery has been scheduled as requested. Surgical request completed for right ring trigger finger release at [facility] on 04/12/2023. documented in this encounter [facility] 04-02-2023 Note HNO ID: [id number] Author: Linda Radford MD Service: ? Author Type: Physician Type: Progress Notes Filed: 04/02/2023 1:47 PM Note Text: Linda Radford MD Department of Orthopaedics Orthopaedics [address] [facility] [address] Dept: [phone] Dept April 02, 2023 CHIEF COMPLAINT: Established [...] per MRI Other chest pain 10/[address] [facility] with mMI ruled out; normal Cardiolyte stress [...] 09/18/2016 normal EGD TRANSORAL BIOPSY SINGLE/MULTIPLE 09/29/2010 [facility] inpt H-pylori negative EGD TRANSORAL BIOPSY SINGLE/MULTIPLE 09/18/2016 mild gastritis, GERD EGD W/O [facility] SPEC VARICIES INJ 07/11/2021 ESOPHAGOGASTRODUODENOSCOPY TRANSORAL DIAGNOSTIC 03/29/2009 [facility] inpt EGD H-pylori negative ESOPHAGOGASTRODUODENOSCOPY TRANSORAL DIAGNOSTIC [...] smoking Hypertension Father (more content not included)... [facility] 04-02-2023 Note HNO ID: [id number] Author: Eula Sosa RT(R) Service: ? Author Type: Brake Operator Sheet Metal Type: Progress Notes Filed: 04/02/2023 12:23 PM [...] RT Troy(R) April 02, 2023 12:15 PM [facility] 03-20-2023 Note HNO ID: [id number] Author: Meredith Agustin OD Service: ? Author Type: SPECIMEN ACCESSIONER Type: Progress Notes Filed: 03/20/2023 10:51 AM [...] Agustin, OD March 20, 2023 10:48 AM [facility] 03-20-2023 History of Presen t illness [...] for dilation OU to recheck floaters Meredith Agustin OD March 20, 2023 10:48 AM documented in this encounter [facility] 03-06-2023 Note HNO ID: [id number] Author: Meredith Agustin OD Service: ? Author Type: SPECIMEN ACCESSIONER Type: Progress Notes Filed: 03/06/2023 4:08 PM [...] for iritis check/dilation right eye Meredith Agustin, OD March 06, 2023 3:53 PM [facility] 03-06-2023 History of Presen t illness [...] for iritis check/dilation right eye Meredith Agustin, OD March 06, 2023 3:53 PM documented in this encounter [facility] 03-06-2023 Instructions Meredith Agustin, OD - 03/06/2023 3:51 PM EDT Use Systane Complete or Refresh Relieva 2-3 times daily Use Systane, Refresh or Blink gel nightly before bed in both eyes documented in this encounter [facility] 01-25-2022 History of Presen t illness Narrative [...] 2022 1:14 PM documented in this encounter [facility] 04-19-2021 Hospital Discharg e instructions Patient Education [...] foods again, start with small amounts of ywow-ss-rldmfp, low-fat foods. These include apple sauce, toast, [...] increase stomach acid. Don't use aspirin or irjs-rxy-fvgjbdy pain and fever medicines, if possible. This includes nonsteroidal anti-inflammatory drugs (NSAIDs). Lose excess weight. Finish eating at least 2 hours before you go to bed or lie down. Raise the head of your bed. [id number] [employer]. [address] [place] [address], [place] [address]. All rights reserved. This information is not intended as a substitute for professional medical care. Always follow your healthcare professional's instructions. [facility] 04/19/2021 10:59:57 With:IAM WAYNE MD Address: [phone] When:2-4 days [facility] 04-02-2021 Hospital Discharg e instructions Patient [...] or as directed by your healthcare provider [id number] [employer]. [address] [place] [address], [place] [address]. All rights reserved. This information is not intended as a substitute for professional medical care. Always follow your healthcare professional's instructions. [facility] 04/02/2021 10:23:03 With:AFUA WOLF DO Address: [address] [place] [id number]- When:2-4 days [facility] documented as of this encounter (statuses as of 01/26/2022) [facility] History of Past illness Narrative* Problem Noted [...] of this encounter (statuses as of 03/07/2023) [facility] History of Past illness Narrative* Problem Noted [...] of this encounter (statuses as of 03/20/2023) [address]19-2016 History of Past illness Narrative* Problem Noted [...] of this encounter (statuses as of 04/11/2023) [address]19-2016 History of Past illness Narrative* Problem Noted [...] of this encounter (statuses as of 04/27/2023) [address]-2016 History of Past illness Narrative* Problem Noted [...] of this encounter (statuses as of 07/14/2023) [facility] History of Past illness Narrative* Problem Noted [...] of this encounter (statuses as of 07/14/2023) [facility] No data available for this section [facility] Evaluation note* Diagnosis Iritis, traumatic- Primary Unspecified iridocyclitis Retinal hemorrhage, right eye Retinal hemorrhage Punctate keratitis, bilateral [facility] Diagnosis Iritis, traumatic- Primary Unspecified iridocyclitis Retinal hemorrhage, right eye Retinal hemorrhage Punctate keratitis, bilateral Posterior vitreous detachment of right eye Vitreous degeneration [facility] Diagnosis Trigger ring finger of right hand- Primary Trigger finger (acquired) Trigger ring finger of right hand Trigger finger (acquired) [facility] Diagnosis Constipation, unspecified constipation type [facility] Diagnosis Constipation, unspecified constipation type- Primary documented in this encounter [facility] for referral (narrative)* Diagnostic Procedure Only (Routine) - Closed Specialty Diagnoses / Procedures Referred By Tri martinez Referred To Contact XR IMAGING Diagnoses Constipation, unspecified constipation type Procedures XR ABDOMEN 1V SUPINE RADIOLOGIC EXAM ABDOMEN 1 VIEW Iam Wayne MD [address] [address] [place] [address] Referral ID Status Reason Start Date Expiration Date V isits Requested Visits Authorized [id number] Closed Auto-Generate d Referral 07/13/2023 08/11/2024 1 1 [facility] for visit Narrative* Diagnostic Procedure Only (Routine) - Closed Specialty Diagnoses / Procedures Referred By Tri martinez Referred To Contact XR IMAGING Diagnoses Constipation, unspecified constipation type Procedures XR ABDOMEN 1V SUPINE RADIOLOGIC EXAM ABDOMEN 1 VIEW Iam Wayne MD [address] [address] [place] [address] Referral ID Status Reason Start Date Expiration Date V isits Requested Visits Authorized [id number] Closed Auto-Generate d Referral 07/13/2023 08/11/2024 1 1 [facility] Summary Purpose Family History No Family History Records FoundNo Family History Records FoundNo Family History Records FoundNo Family History Records FoundNo Family History Records Found Advance Directives No Advanced Directives Records FoundDocuments on File Type Date Recorded 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 Note HNO ID: [id number] Author: Keyona Jimenez Service: Interventional Cardiology Author [...] right wrist with 1% lidocaine. A pre-flushed 6-[place] sheath was inserted into the Right radial artery via the Seldinger technique without complications. Retrograde percutaneous diagnostic coronary angiography and left ventriculography were performe (more content not included)... Procedure Findings Note HNO ID: [id number] Author: Keyona Jimenez Service: Interventional Cardiology Author [...] right wrist with 1% lidocaine. A pre-flushed 6-[place] sheath was inserted into the Right radial [...] on Sun03/06/23 at 1530, Until Sun03/07/23 at 032, Administer for applanation tonometry. In the event of a Fluress shortage, administer [place]-Fluor 1 drop into both eyes as directed for applanation tonometry Given 03/06/2023 3:08 PM EDT 1 Drop PHENYLephrine 2.5 % 1 Drop (AK-DILATE, AIRSTIDES-SYNEPHRINE) 1 Drop, BOTH EYES, DIRECTED, Starting on Sun03/06/23 at 1530, Until Sun03/07/23 at 0329, Administer for dilation PROTECT FROM LIGHT Given 03/06/2023 3:08 PM EDT 1 Drop proparacaine 0.5 % 1 Drop (ALCAINE) 1 Drop, BOTH EYES, DIRECTED, Starting on Sun03/06/23 at 1530, Until Sun03/07/23 at 032, Administer for pneumo tonometry, tonopen tonometry, or [...] on Sun03/20/23 at 1030, Until Sun03/20/23 at 222, Administer for dilation PROTECT FROM LIGHT Given [...] DATE CREATED AUTHOR AUTHOR'S ORGANIZ ATION 07/07/2021 [facility] DATE CREATED AUTHOR AUTHOR'S ORGANIZ ATION 07/13/2021 [facility] DATE CREATED AUTHOR AUTHOR'S ORGANIZ ATION 07/26/2023 [facility] Source Comments (unrecognize d section and content) In the event this informatio n is protected by the Federal Confidentiality of Alcohol and Drug Abuse Patient Records regulations: The Federal rules restrict any use of the information to criminally investigate or prosecute any alcohol or drug abuse patient.[facility] the event this information is protected by the Federal Confidentiality of Alcohol and Drug Abuse Patient Records regulations: The Federal rules restrict any use of the information to criminally investigate or prosecute any alcohol or drug abuse patient.[facility] the event this information is protected by the Federal Confidentiality of Alcohol and Drug Abuse Patient Records regulations: The Federal rules restrict any use of the information to criminally investigate or prosecute any alcohol or drug abuse patient.[facility] the event this information is protected by the Federal Confidentiality of Alcohol and Drug Abuse Patient Records regulations: The Federal rules restrict any use of the information to criminally investigate or prosecute any alcohol or drug abuse patient.[facility] CenterIn the event this information is protected by the Federal Confidentiality of Alcohol and Drug Abuse Patient Records regulations: The Federal rules restrict any use of the information to criminally investigate or prosecute any alcohol or drug abuse patient.[facility] CenterIn the event this information is protected by the Federal Confidentiality of Alcohol and Drug Abuse Patient Records regulations: The Federal rules restrict any use of the information to criminally investigate or prosecute any alcohol or drug abuse patient.[facility] CenterIn the event this information is protected by the Federal Confidentiality of Alcohol and Drug Abuse Patient Records regulations: The Federal rules restrict any use of the information to criminally investigate or prosecute any alcohol or drug abuse patient.[facility] Care Teams (unrecognized sec tion and content) Core Loader Relationship Specialty Start Date End Date Afua Wolf DO [address] [place] [address] PCP - General Family Medicine 07/11/21 Hannah Kowalski MD [address] [place] [address] Primary Staff Physician Cardiology 08/13/18 Core Loader Relationship Specialty Start Date End Date Afua Wolf DO [address] [place], [place] [id number] PCP - General Family Medicine 07/11/21 Hannah Kowalski MD [address] [place] [address] Primary Staff Physician Cardiology 08/13/18 Core Loader Relationship Specialty Start Date End Date Afua Wolf DO [address] [place], [place] [id number] PCP - General Family Medicine 07/11/21 Hannah Kowalski MD [address] [place] [address] Primary Staff Physician Cardiology 08/13/18 Core Loader Relationship Specialty Start Date End Date Afua Wolf DO [address] [place] [address] PCP - General Family Medicine 07/11/21 Hannah Kowalski MD [address] [place] [address] Primary Staff Physician Cardiology 08/13/18 Core Loader Relationship Specialty Start Date End Date Afua Wolf DO [address] [place], [place] [id number] PCP - General Family Medicine 07/11/21 Hannah Kowalski MD [address] [place] [address] Primary Staff Physician Cardiology 08/13/18 Core Loader Relationship Specialty Start Date End Date Afua Wolf DO [address] [place], [place] [id number] PCP - General Family Medicine 07/11/21 Hannah Kowalski MD [address] [place], [place] [id number] Primary Staff Physician Cardiology 08/13/18 Reason for [...] BE BASED ON THE PRIMARY CLINICAL RECORDS. [employer] [facility]. provides no warranty or guarantee of the accuracy or completeness of information in this document.
[2023-08-03] MEDS: Pantoprazole Sodium 40 MG Tablet PO (21:48)
[2023-08-03] MEDS: Morphine 2 MG/ML Syringe IV (21:48)
[2023-08-03] MEDS: Metoprolol Tartrate 25 MG Tablet PO (21:48)
[2023-08-03] MEDS: Tamsulosin HCl 0.4 MG Capsule 0.400000000000000022 MG PO (21:48)
[2023-08-03] MEDS: ALPRAZolam 0.5 MG Tablet PO (21:48)
[2023-08-03] MEDS: Famotidine 20 MG Tablet 40 MG PO (21:49)
[2023-08-03] MEDS: amLODIPine 5 MG Tablet PO (21:49)
[2023-08-03] MEDS: Tolterodine Tartrate 4 MG CAP.SA PO (21:49)
[2023-08-03] MEDS: Atorvastatin Calcium 20 MG Tablet PO (21:50)
[2023-08-03] MEDS: Allopurinol 100 MG Tablet 200 MG PO (21:50)
[2023-08-03] MEDS: Finasteride 5 MG Tablet PO (21:51)
[2023-08-04] VITALS (7 sets, daily range): BP systolic 105–127; BP diastolic 68–84; PULSE 55–77; RESP 14–18; TEMP 36–36.5; O2SAT 95–98
--- NOTE | 2023-08-04 00:32 | EKG12_ITS ---
Test Reason : CP ADMISSION Blood Pressure : / mmHG Vent. Rate : 067 BPM Atrial Rate : 067 BPM P-R Int : 138 ms QRS Dur : 110 ms QT Int : 420 ms P-R-T Axes : 053 -36 053 degrees QTc Int : 443 ms Normal sinus rhythm Left axis deviation Abnormal ECG When compared with ECG of 03-AUG-2023 14:49, MANUAL COMPARISON REQUIRED, DATA IS UNCONFIRMED Confirmed by Tyrone Rodriguez ([id number]), film editor supervisor ROBERTO RAHMAN ([id number]) on 08/07/2023 11:41:00 AM Referred By: FRANCIS Confirmed By:Tyrone Rodriguez
[2023-08-04 01:40] LABS: Troponin-I HS 32 pg/mL (3.0-78.0)
[2023-08-04] MEDS: oxyCODONE 5 MG Tablet PO ×4 (04:16→18:35)
[2023-08-04] MEDS: Acetaminophen 500 MG Tablet 1000 MG PO ×2 (04:17→13:51)
[2023-08-04 05:49] LABS: Absolute Lymphocyte Count 2.74 X10^3/uL (0.83-4.51); Basophil# 0.06 X10^3/uL; Basophil% 0.7 % (0-1); Eosinophil# 0.27 X10^3/uL; Eosinophils% 3.3 % (0-5); Hematocrit 38.3 % (40-54); Hemoglobin 12.5 g/dL (13.0-16.5); Lymphocyte # 2.74 X10^3/ul (0.83-4.51); Mean Corp Hgb Conc 32.6 g/dL (32-36); Mean Corpuscular Hgb 30.8 pg (27.0-32.0); Mean Corpuscular Volume 94.3 fL (80-94); Mean Platelet Vol. 9.2 fl (6.2-12.0); Monocyte# 0.85 X10^3/uL; Monocyte% 10.5 % (0-10); NRBC Flagged by Analyzer 0 % (0-5); Neutrophil # 3.98 X10^3/uL (2.7-7.7); Neutrophil % 49.5 % (47-70); Platelet Count 167 K/mm3 (150-450); RBC Distribution Width CV 13.2 % (11.6-14.6); RBC Distribution Width SD 45.1 fl (35.1-43.9); Red Blood Count 4.06 M/mm3 (4.6-6.2); White Blood Count 8.1 K/mm3 (4.4-11.0)
[2023-08-04] MEDS: ALPRAZolam 0.25 MG Tablet PO ×2 (05:54→13:47)
[2023-08-04 06:07] LABS: Anion Gap 6 (5-15); BUN 18 mg/dL (7-18); BUN/Creat Ratio 14.6 RATIO (10-20); Calcium,Total 8.6 mg/dL (8.5-10.1); Chloride 113 mmol/L (98-107); Creatinine, Serum 1.23 mg/dL (0.70-1.30); EST Glomerular Filtration Rate 61 mL/min (>60); Est Glom Filt Rate - Afr Amer 74 mL/min (>60); Estimated Creatinine Clearance 55.14 ml/min; Glucose 108 mg/dL (74-106); Potassium 4.4 mmol/L (3.5-5.1); Sodium Level 142 mmol/L (136-145); Troponin-I HS 25 pg/mL (3.0-78.0)
--- NOTE | 2023-08-04 08:27 | PCM.PN.HOSP ---
Reason for Visit Reason for Visit: Diagnoses Unstable angina (08/03/23) Subjective Subjective Patient is a 73-year-old gentleman with recent abnormal stress test who is scheduled to undergo left heart catheterization on 08/14/2023 presented to the emergency department with chest pain and assessment of unstable angina made, admitted to monitored bed for further management Objective Data Objective Data Vital Signs: Vital Signs Temp Pulse Resp BP Pulse Ox O2 Del Method O2 Flow Rate 97.7 F L 61 14 105/68 97 Room Air 2 08/04/23 03:50 08/04/23 03:50 08/04/23 03:50 08/04/23 03:50 08/04/23 03:50 08/04/23 04:08 08/03/23 15:10 Oxygen Flow Rate (L/min) 2 Oxygen Delivery Method Room Air Weight: 86.5 kg Body Mass Index (BMI) 30.7 Intake & Output: Intake and Output for Last 24 Hours 08/02/23 08/03/23 08/04/23 23:59 23:59 23:59 Intake Total 500 / 500 Balance 500 / 500 Lab / Micro Data 08/04/23 05:43 08/04/23 06:15 Labs: Laboratory Results - last 24 hr 08/03/23 15:09: WBC 10.1, RBC 4.36 L, Hgb 13.5, Hct 40.9, MCV 93.8, MCH 31.0, MCHC 33.0, RDW Std Deviation 44.4 H, RDW Coeff of Leeann 13.0, Plt Count 184, MPV 10.2, Immature Gran % (Auto) 1.700 H, Neut % (Auto) 57.5, Lymph % (Auto) 29.0, Ward % (Auto) 8.9, Eos % (Auto) 2.2, Baso % (Auto) 0.7, Absolute Neuts (auto) 5.8, Absolute Lymphs (auto) 2.92, Nucleated RBC % 0, PT 12.6, INR 0.9, APTT 32.8, Sodium 143, Potassium 4.0, Chloride 115 H, Carbon Dioxide 18.0 L, Anion Gap 10, BUN 20 H, Creatinine 1.24, Estim Creat Clear Calc 55.86, Est GFR (MDRD) Af Amer 74, Est GFR (MDRD) Non-Af 61, BUN/Creatinine Ratio 16.1, Glucose 88, Calcium 9.0, Magnesium 2.3, Total Bilirubin 0.30, AST 22, ALT 27, Alkaline Phosphatase 65, Troponin I High Sens 21, Total Protein 7.1, Albumin 3.8, Globulin 3.3, Albumin/Globulin Ratio 1.2, Lipase 61 08/03/23 17:20: Troponin I High Sens 23 08/04/23 00:58: Troponin I High Sens 32 08/04/23 05:43: WBC 8.1, RBC 4.06 L, Hgb 12.5 L, Hct 38.3 L, MCV 94.3 H, MCH 30.8, MCHC 32.6, RDW Std Deviation 45.1 H, RDW Coeff of Leeann 13.2, Plt Count 167, MPV 9.2, Immature Gran % (Auto) 2.000 H, Neut % (Auto) 49.5, Lymph % (Auto) 34.0, Ward % (Auto) 10.5 H, Eos % (Auto) 3.3, Baso % (Auto) 0.7, Absolute Neuts (auto) 4.0, Absolute Lymphs (auto) 2.74, Nucleated RBC % 0 08/04/23 06:15: Sodium 142, Potassium 4.4, Chloride 113 H, Carbon Dioxide 23.0, Anion Gap 6, BUN 18, Creatinine 1.23, Estim Creat Clear Calc 55.14, Est GFR (MDRD) Af Amer 74, Est GFR (MDRD) Non-Af 61, BUN/Creatinine Ratio 14.6, Glucose 108 H, Calcium 8.6, Troponin I High Sens 25 Radiography Diagnostic Testing: Radiology Impression Chest X-Ray 08/03/23 15:10 IMPRESSION: No significant interval change. Electronically Signed: Monica Santizo MD at 15:28 EST , Rhythm Strip Rhythm Strip: Sinus Rhythm Rate: 86 Ectopy: PVC(s) Physical Exam Narrative GENERAL: cooperative HEENT: Atraumatic; normocephalic EYES; Anicteric, Normal Conjunctiva NECK; supple, normal thyroid, RESPIRATORY: Diminished to auscultation CARDIOVASCULAR: Regular S1 S2, GI: soft, normoactive bowel sounds, : No Renal angle tenderness; EXTREMITIES: No edema, no clubbing, MUSCULOSKELETAL: no muscle wasting NEURO: Awake; no lateralizing signs. SKIN: No Rash PSYCH; Flat affect Assessment & Plan Assessment/Plan (1) Unstable angina: PLAN: Plan Patient is a 73-year-old gentleman with recent abnormal stress test who is scheduled to undergo left heart catheterization on 08/14/2023 presented to the emergency department with chest pain and assessment of unstable angina made, admitted to monitored bed for further management 1. Chest pain consistent with unstable angina ? Patient had abnormal stress test on 07/26/2023 and scheduled to undergo left heart catheterization on 08/14/2023 presented with chest pain. Cardiac enzymes have so far been negative to date treatment initiated per protocol consultation placed to cardiology plan is for patient to undergo left heart catheterization likely on 08/07/2023 2. Coronary artery disease ? With previous PCI patient remains on guideline directed medical therapy 3. Hypertension - Blood pressure controlled, home medications continued with dose adjustment as needed 4. Dyslipidemia -Patient is on statin therapy, continued at home dose 5. Gout ? Symptoms controlled on allopurinol 6. BPH with lower urinary obstructive symptoms - Patient treated with tamsulosin and finasteride 7. GERD ? Patient is on famotidine 8. Vitamin D deficiency ? Patient is on vitamin D3 supplement at home 9. Class I obesity with BMI of 31 ? Complicating care weight loss advised DVT prophylaxis ? SC Lovenox Time spent in the patient's overall evaluation,decision-making process, review of diagnostic data, adjustment of management, discussion with other providers, nursing nursing and ancillary staff involved in patient's care documentation, 52 minutes Charges/Coding Visit Charges Inpatient E&M: 35951 Subs Hosp L3
[2023-08-04] MEDS: levoFLOXacin 500 MG Tablet PO (09:13)
[2023-08-04] MEDS: Famotidine 20 MG Tablet 40 MG PO ×2 (09:13→20:58)
[2023-08-04] MEDS: Pantoprazole Sodium 40 MG Tablet PO ×2 (09:13→20:59)
[2023-08-04] MEDS: Metoprolol Tartrate 25 MG Tablet PO ×2 (09:14→22:42)
[2023-08-04] MEDS: Aspirin 81 MG TAB.CHEW PO (09:15)
[2023-08-04] MEDS: Enoxaparin 40 MG/0.4 ML Syringe SC (09:15)
--- NOTE | 2023-08-04 11:17 | PCM.CONS.C ---
Assessment & Plan Assessment/Plan (1) Chest pain: QUALIFIERS: Chest pain type: unspecified Qualified Code(s): R07.9 - Chest pain, unspecified PLAN: The patient's chest discomfort reminds him of what he experienced at the time of his original infarct back in 2018. However that was precipitated by activity. All of these chest symptoms he is experiencing now occur at rest in recumbent position. His enzymes are negative x 3 sets and his EKG does not show any acute ischemic changes although he does have frequent ectopy and has a history of significant PVC burden on a Holter monitor done in 2020. The patient had a pharmacologic nuclear stress test which showed posterior lateral scar with yvette-infarct ischemia in the distribution of his known previous stent. He is scheduled to have an ambulatory outpatient cath done in the next [address] Prajapati but he presented to the emergency room and is now admitted. (2) Hyperlipidemia: QUALIFIERS: Hyperlipidemia type: mixed hyperlipidemia Qualified Code(s): E78.2 - Mixed hyperlipidemia PLAN: The patient is treated with rosuvastatin 10 mg daily. His will be followed up in the outpatient setting. His target LDL cholesterol should be less than 70. (3) Hypertension: QUALIFIERS: Hypertension type: primary hypertension Qualified Code(s): I10 - Essential (primary) hypertension PLAN: Blood pressure is well-controlled on his current medical therapy. (4) Coronary artery disease: QUALIFIERS: Coronary Disease-Associated Artery/Lesion type: [place] artery [place] vs. transplanted heart: [place] heart Associated angina: unspecified whether angina present Qualified Code(s): I25.10 - Atherosclerotic heart disease of [place] coronary artery without angina pectoris PLAN: The patient does have a history of coronary artery disease status post non-STEMI in 2018 and was intervened upon with a drug-eluting stent to the posterior lateral circumflex and he reports to me that it was reintervened upon for restenosis as well. It has been well over 1 to 2 years since his last intervention by his report. PLAN: Plan 1. Will attempt to add low-dose long-acting nitrates to his medical regimen. If he develops a headache this will be discontinued. 2. Will plan for left heart catheterization 08/06/2023. 3. Will start Plavix 75 mg daily today. HPI Consult Data Date of Consult: 08/04/23 HPI Narrative Reason for Consultation: chest pain HPI Narrative: SEBASTIEN BARON, is a 73 M who presents to the emergency department with recurrence of chest discomfort. This is comfortable has been occurring only when he is in recumbent position. It does not occur when he is up moving around in his trailer. However, it is identical to what he described as his original chest symptoms with his first heart catheterization and stenting of the circumflex. The patient had a pharmacologic stress test done 07/24/2023 occasional PVCs were noted and it was a basal lateral defect suggestive of prior basal lateral infarct and mild to moderate yvette-infarct ischemia. The patient was called and had been scheduled to have a left heart catheterization by Dr. Prajapati in the next 2 weeks. The patient a previous history of a non-STEMI back in 2017. He had a stent placed in the proximal lateral circumflex. He was actually hospitalized in August for near syncope and in December for CVA. Last echo December 2022 showed a preserved ejection fraction. He had she had a Holter monitor in 2020 which showed a high PVC burden of approximately 11%. The patient reports that with activity he has been getting short of breath and this has been progressive since last fall when he noticed it when he was raking leaves. 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 Since admission the patient had a couple of short-lived episodes that awoke him from sleep last night in the hospital. An EKG done a little after midnight did not show any acute ischemic changes and his cardiac isoenzymes are negative x 3 sets. The patient refused sublingual nitroglycerin as he said it has given him a headache in the past. He also got a headache from long-term use of isosorbide. [facility] Medical History Alcoholism Anemia Anxiety Atherosclerosis of coronary artery without angina pectoris Back pain BiPAP (biphasic positive airway pressure) dependence Chronic pain Coronary artery disease Dementia Depression Essential (primary) hypertension GI hemorrhage Gout History of stress test Hyperlipidemia Hypertension Myocardial infarct Non-smoker NSTEMI (non-ST elevated myocardial infarction) (04/13/18) Obesity Pancreatitis Pulmonary embolism Rheumatoid arthritis Sleep apnea Traumatic brain injury Unstable angina Home Medications allopurinol 100 mg tablet 200 mg PO QHS gout 11/07/20 [History Last Taken 08/02/23] aspirin 81 mg chewable tablet 81 mg PO DAILY thinner 11/07/20 [History Last Taken 08/03/23] cholecalciferol (vitamin D3) 125 mcg (5,000 unit) tablet 50,000 unit PO WE supplement 11/07/20 [History Last Taken 08/01/23] colchicine 0.6 mg tablet (Colcrys) 0.6 mg PO PRN gout 11/07/20 [History Last Taken Unknown] finasteride 5 mg tablet 5 mg PO QHS urine retention 11/07/20 [History Last Taken 08/02/23] tamsulosin 0.4 mg capsule 0.4 mg PO QHS urinary retention 11/07/20 [History Last Taken 08/02/23] alprazolam 0.5 mg tablet (Xanax) 0.25 mg PO .COMPLEX anxiety 11/09/20 [History Last Taken 08/03/23 09:00] nitroglycerin 0.4 mg sublingual tablet 0.4 mg sublingual Q5M PRN Cardiac/Chest Pain #0 tabs 11/09/20 [Rx Last Taken Unknown] acetaminophen 500 mg tablet 1,000 mg (2 x 500 mg) PO Q6H PRN PRN Pain Score 1-3 #0 tabs 11/15/20 [Rx Last Taken Unknown] pantoprazole 40 mg tablet,delayed release 40 mg PO BID indigestion 01/11/23 [History Last Taken 08/03/23 10:00] metoprolol tartrate 25 mg tablet 25 mg PO BID #180 tabs 04/26/23 [Rx Last Taken 08/03/23 10:00] famotidine 40 mg tablet 40 mg PO BID 06/14/23 [History Last Taken 08/03/23 10:00] ondansetron 4 mg disintegrating tablet 4 mg PO Q8-12H PRN nausea 06/14/23 [History Last Taken 08/03/23] rosuvastatin 10 mg tablet 10 mg PO QHS 06/14/23 [History Last Taken 08/02/23] amlodipine 5 mg tablet 5 mg PO QHS 08/03/23 [History Last Taken 08/02/23] levofloxacin 500 mg tablet 500 mg PO Q24H 08/03/23 [History Last Taken 08/03/23] oxybutynin chloride 10 mg tablet,extended release 24 hr 10 mg PO QHS 08/03/23 [History Last Taken 08/02/23] Allergy/AdvReac Type Severity Reaction Status Date / Time isosorbide AdvReac Mild Headache Verified 08/03/23 14:46 Family History Mother CAD (coronary artery disease) Surgical History History of coronary artery stent placement (04/13/18) History of knee surgery History of repair of rotator cuff Hx of cholecystectomy Social History household members: spouse Smoking Status: Never smoker alcohol intake: former details: Sober since 2010. substance use type: does not use ROS Constitutional Constitutional: Reports as per HPI Eyes Eyes: Reports systems reviewed and no addt'l complaints, except as documented ENT HEENT: Reports systems reviewed and no addt'l complaints, except as documented Cardiovascular Cardiovascular: Reports as per HPI Respiratory/Chest Respiratory/Chest: Reports as per HPI Gastrointestinal Gastrointestinal: Reports systems reviewed and no addt'l complaints, except as documented Genitourinary Genitourinary: Reports systems reviewed and no addt'l complaints, except as documented Musculoskeletal Musculoskeletal: Reports systems reviewed and no addt'l complaints, except as documented Integumentary Integumentary: Reports systems reviewed and no addt'l complaints, except as documented Neurologic Neurologic: Reports systems reviewed and no addt'l complaints, except as documented Psychiatric Psychiatric: Reports systems reviewed and no addt'l complaints, except as documented Endocrine Endocrinology: Reports systems reviewed and no addt'l complaints, except as documented Hematologic/Lymphatic Hematologic/Lymphatic: Reports systems reviewed and no addt'l complaints, except as documented Allergic/Immunologic Allergic/Immunologic: Reports systems reviewed and no addt'l complaints, except as documented Physical Exam Narrative The patient is resting comfortably in her composition in bed. Const oriented x3 HEENT normocephalic Eyes EOMs intact bilaterally Neck no JVD and no carotid bruits Chest inspection of chest normal Resp normal respiratory effort and clear to auscultation bilaterally Cardio regular rate, S1 normal heart sound, S2 normal heart sound, no murmurs, no rub and no gallops Rhythm: abnormal rhythm ectopic beats Peripheral Pulses: radial pulses present right 1+ and posterior tibial pulses present bilateral 2+ GI normal to inspection, nondistended, normoactive bowel sounds Extremity no pedal edema Skin no rashes or lesions noted Neuro Neuro Narrative: Alert and oriented x 3 Psych mental status grossly normal Risk Stratification Risk Stratification Applicable: Yes Age >/= 65: Yes >/= 3 CAD Risk Factors (HTN, HLD, DM, family hx of CAD, or current smoker): Yes Aspirin Use in the Past 7 Days: Yes Severe Angina (>/= episodes in 24 hours): No EKG ST Changes >/= 0.5mm: No Positive Cardiac Marker: No DIANNE Risk Stratification Score: 3 DIANNE % Risk: 13% Risk Charges/Coding Visit Charges Inpatient E&M: 60220 Init Hosp L2 Objective Data Vital Signs: Vital Signs Temp Pulse Resp BP Pulse Ox O2 Del Method O2 Flow Rate 97.6 F L 63 16 105/84 H 98 Room Air 2 08/04/23 09:10 08/04/23 09:14 08/04/23 09:10 08/04/23 09:10 08/04/23 09:10 08/04/23 09:10 08/03/23 15:10 Oxygen Flow Rate (L/min) 2 Oxygen Delivery Method Room Air Weight: 190 lb 11.198 oz Body Mass Index (BMI) 30.7 Intake & Output: Intake and Output for Last 24 Hours 08/02/23 08/03/23 08/04/23 23:59 23:59 23:59 Intake Total 500 / 500 Balance 500 / 500 Lab / Micro Data Attestation: I reviewed the patient's lab results. 08/04/23 05:43 08/04/23 06:15 Labs: Laboratory Results - last 24 hr 08/03/23 15:09: WBC 10.1, RBC 4.36 L, Hgb 13.5, Hct 40.9, MCV 93.8, MCH 31.0, MCHC 33.0, RDW Std Deviation 44.4 H, RDW Coeff of Leeann 13.0, Plt Count 184, MPV 10.2, Immature Gran % (Auto) 1.700 H, Neut % (Auto) 57.5, Lymph % (Auto) 29.0, [place] % (Auto) 8.9, Eos % (Auto) 2.2, Baso % (Auto) 0.7, Absolute Neuts (auto) 5.8, Absolute Lymphs (auto) 2.92, Nucleated RBC % 0, PT 12.6, INR 0.9, APTT 32.8, Sodium 143, Potassium 4.0, Chloride 115 H, Carbon Dioxide 18.0 L, Anion Gap 10, BUN 20 H, Creatinine 1.24, Estim Creat Clear Calc 55.86, Est GFR (MDRD) Af Amer 74, Est GFR (MDRD) Non-Af 61, BUN/Creatinine Ratio 16.1, Glucose 88, Calcium 9.0, Magnesium 2.3, Total Bilirubin 0.30, AST 22, ALT 27, Alkaline Phosphatase 65, Troponin I High Sens 21, Total Protein 7.1, Albumin 3.8, Globulin 3.3, Albumin/Globulin Ratio 1.2, Lipase 61 08/03/23 17:20: Troponin I High Sens 23 08/04/23 00:58: Troponin I High Sens 32 08/04/23 05:43: WBC 8.1, RBC 4.06 L, Hgb 12.5 L, Hct 38.3 L, MCV 94.3 H, MCH 30.8, MCHC 32.6, RDW Std Deviation 45.1 H, RDW Coeff of [place] 13.2, Plt Count 167, MPV 9.2, Immature Gran % (Auto) 2.000 H, Neut % (Auto) 49.5, Lymph % (Auto) 34.0, [place] % (Auto) 10.5 H, Eos % (Auto) 3.3, Baso % (Auto) 0.7, Absolute Neuts (auto) 4.0, Absolute Lymphs (auto) 2.74, Nucleated RBC % 0 08/04/23 06:15: Sodium 142, Potassium 4.4, Chloride 113 H, Carbon Dioxide 23.0, Anion Gap 6, BUN 18, Creatinine 1.23, Estim Creat Clear Calc 55.14, Est GFR (MDRD) Af Amer 74, Est GFR (MDRD) Non-Af 61, BUN/Creatinine Ratio 14.6, Glucose 108 H, Calcium 8.6, Troponin I High Sens 25 Rhythm Strip Rhythm Strip: Sinus Rhythm Rate: 56 Ectopy: PVC(s) Cardiology Labs/Tests 08/03/23 15:09: WBC 10.1, RBC 4.36 L, Hgb 13.5, Hct 40.9, MCV 93.8, MCH 31.0, MCHC 33.0, Plt Count 184, MPV 10.2, Immature Gran % (Auto) 1.700 H, Neut % (Auto) 57.5, Lymph % (Auto) 29.0, [place] % (Auto) 8.9, Eos % (Auto) 2.2, Baso % (Auto) 0.7, Absolute Neuts (auto) 5.8, Nucleated RBC % 0, PT 12.6, INR 0.9, APTT 32.8, Sodium 143, Potassium 4.0, Chloride 115 H, Carbon Dioxide 18.0 L, Anion Gap 10, BUN 20 H, Creatinine 1.24, Est GFR (MDRD) Af Amer 74, Est GFR (MDRD) Non-Af 61, BUN/Creatinine Ratio 16.1, Glucose 88, Calcium 9.0, Magnesium 2.3, Total Bilirubin 0.30 08/04/23 05:43: WBC 8.1, RBC 4.06 L, Hgb 12.5 L, Hct 38.3 L, MCV 94.3 H, MCH 30.8, MCHC 32.6, Plt Count 167, MPV 9.2, Immature Gran % (Auto) 2.000 H, Neut % (Auto) 49.5, Lymph % (Auto) 34.0, [place] % (Auto) 10.5 H, Eos % (Auto) 3.3, Baso % (Auto) 0.7, Absolute Neuts (auto) 4.0, Nucleated RBC % 0 08/04/23 06:15: Sodium 142, Potassium 4.4, Chloride 113 H, Carbon Dioxide 23.0, Anion Gap 6, BUN 18, Creatinine 1.23, Est GFR (MDRD) Af Amer 74, Est GFR (MDRD) Non-Af 61, BUN/Creatinine Ratio 14.6, Glucose 108 H, Calcium 8.6 Rhythm: EKG: ECHO: Stress Test: Cardiac Cath: PCI: CT Surgery: Holter monitor: EPS: PPM: CXR: Chest CT Scan: Radiography Diagnostic Testing: Radiology Impression Chest X-Ray 08/03/23 15:10 IMPRESSION: No significant interval change. Electronically Signed: Monica Santizo MD at 15:28 EST ,
[2023-08-04] MEDS: Clopidogrel Bisulfate 75 MG Tablet PO (13:48)
[2023-08-04] MEDS: Isosorbide Mononitrate 30 MG Tablet PO (13:48)
--- NOTE | 2023-08-04 14:58 | CASEMGMT ---
RN CM Assessment: Face to Face with pt for initial transition planning/care coordination assessment. RN CM introduced self and role at [facility], pt voices understanding and consents to assessment. Pt is A&O x4 and answers all questions appropriately at this time. Care providers, pharmacy, and demographics verified/updated. Admitting Dx: Abn stress test, dyspnea, fatigue, CAD PCP: Dr. Wolf Specialists: Dr. Ortiz at [facility], [facility], Dr. Macias urology Preferred Pharmacy: [facility] Insurance: Anthem Medicare Prescription Benefit: yes LNOK: Spouse Rich [phone] Living Arrangements: Pt lives at home with spouse, single story home with 3 steps to enter, with rail. Pt is independent at baseline. Transportation: Pt drives self and denies concerns with transportation. DME: CPAP HHC/SNF: None Pt states no concerns with going home at time of dc. Pt states no further concerns/needs. CM to follow. Advised pt to ask CM if any further question/concerns/needs arise, voices understanding. Pt Goal: Home Plan: Home Kelly Braun MSN, RN, CCM
[2023-08-04] MEDS: Tamsulosin HCl 0.4 MG Capsule 0.400000000000000022 MG PO (20:58)
[2023-08-04] MEDS: Allopurinol 100 MG Tablet 200 MG PO (20:58)
[2023-08-04] MEDS: Polyethylene Glycol 3350 17 GM PACKET PO (20:58)
[2023-08-04] MEDS: Finasteride 5 MG Tablet PO (20:59)
[2023-08-04] MEDS: Tolterodine Tartrate 4 MG CAP.SA PO (20:59)
[2023-08-04] MEDS: ALPRAZolam 0.5 MG Tablet PO (20:59)
[2023-08-04] MEDS: Atorvastatin Calcium 20 MG Tablet PO (20:59)
[2023-08-04] MEDS: amLODIPine 5 MG Tablet PO (20:59)
[2023-08-05] VITALS (7 sets, daily range): BP systolic 123–151; BP diastolic 60–87; PULSE 72–78; RESP 16–18; TEMP 36.1–36.3; O2SAT 95–98
[2023-08-05] MEDS: ALPRAZolam 0.25 MG Tablet PO ×2 (05:14→14:52)
[2023-08-05] MEDS: 0.9% Saline Lock 10 ML Syringe IV ×2 (05:16→21:33)
[2023-08-05] MEDS: oxyCODONE 5 MG Tablet PO ×3 (05:22→19:40)
[2023-08-05 06:50] LABS: Absolute Lymphocyte Count 2.77 X10^3/uL (0.83-4.51); Absolute Neutrophil Count 3.7 X10^3/uL (2.0-7.7); Basophil# 0.04 X10^3/uL; Basophil% 0.5 % (0-1); Eosinophil# 0.31 X10^3/uL; Hematocrit 37.6 % (40-54); Hemoglobin 12.5 g/dL (13.0-16.5); Lymphocyte # 2.77 X10^3/ul (0.83-4.51); Lymphocyte % 35.6 % (19-41); Mean Corp Hgb Conc 33.2 g/dL (32-36); Mean Corpuscular Hgb 31.2 pg (27.0-32.0); Mean Corpuscular Volume 93.8 fL (80-94); Monocyte# 0.83 X10^3/uL; Monocyte% 10.7 % (0-10); NRBC Flagged by Analyzer 0 % (0-5); Neutrophil # 3.73 X10^3/uL (2.7-7.7); Neutrophil % 47.8 % (47-70); Platelet Count 162 K/mm3 (150-450); RBC Distribution Width CV 13.1 % (11.6-14.6); RBC Distribution Width SD 44.5 fl (35.1-43.9); Red Blood Count 4.01 M/mm3 (4.6-6.2); White Blood Count 7.8 K/mm3 (4.4-11.0)
[2023-08-05 07:12] LABS: Anion Gap 5 (5-15); BUN 20 mg/dL (7-18); Chloride 108 mmol/L (98-107); Creatinine, Serum 1.25 mg/dL (0.70-1.30); EST Glomerular Filtration Rate 60 mL/min (>60); Est Glom Filt Rate - Afr Amer 73 mL/min (>60); Estimated Creatinine Clearance 54.26 ml/min; Glucose 96 mg/dL (74-106); Magnesium 1.9 mg/dL (1.6-2.6); Phosphorus 3.4 mg/dL (2.5-4.9); Potassium 4.2 mmol/L (3.5-5.1); Sodium Level 139 mmol/L (136-145)
--- NOTE | 2023-08-05 09:13 | PCM.PN.CARD ---
Subjective Subjective The patient denies any chest symptoms overnight. He is complaining of his left shoulder hurting after he has a surgical issue with his left shoulder. He also complains of a dull headache which is probably related to long-acting nitrates which started yesterday. I went over with him the importance of trying to tolerate the headache for a few days as it should resolve and we would use Tylenol as needed to treat it. The patient was instructed to remain n.p.o. after midnight for his cath tomorrow morning. Objective Data Vital Signs: Vital Signs Temp Pulse Resp BP Pulse Ox O2 Del Method O2 Flow Rate 97.3 F L 75 18 124/87 H 97 Room Air 2 08/05/23 05:15 08/05/23 05:15 08/05/23 05:15 08/05/23 05:15 08/05/23 08:03 08/05/23 08:03 08/03/23 15:10 Oxygen Flow Rate (L/min) 2 Oxygen Delivery Method Room Air Weight: 190 lb 11.198 oz Body Mass Index (BMI) 30.7 Intake & Output: Intake and Output for Last 24 Hours 08/03/23 08/04/23 08/06/23 23:59 23:59 00:59 Intake Total 500 / 500 Balance 500 / 500 Lab / Micro Data 08/05/23 05:04 08/05/23 05:04 Labs: Laboratory Results - last 24 hr 08/05/23 05:04: WBC 7.8, RBC 4.01 L, Hgb 12.5 L, Hct 37.6 L, MCV 93.8, MCH 31.2, MCHC 33.2, RDW Std Deviation 44.5 H, RDW Coeff of Leeann 13.1, Plt Count 162, MPV 10.0, Immature Gran % (Auto) 1.400 H, Neut % (Auto) 47.8, Lymph % (Auto) 35.6, [place] % (Auto) 10.7 H, Eos % (Auto) 4.0, Baso % (Auto) 0.5, Absolute Neuts (auto) 3.7, Absolute Lymphs (auto) 2.77, Nucleated RBC % 0, Sodium 139, Potassium 4.2, Chloride 108 H, Carbon Dioxide 26.0, Anion Gap 5, BUN 20 H, Creatinine 1.25, Estim Creat Clear Calc 54.26, Est GFR (MDRD) Af Amer 73, Est GFR (MDRD) Non-Af 60, BUN/Creatinine Ratio 16.0, Glucose 96, Calcium 9.0, Phosphorus 3.4, Magnesium 1.9 Rhythm Strip Rhythm Strip: Sinus Rhythm Rate: 85 Ectopy: PVC(s) (Some in a bigeminal pattern.) Cardiology Labs/Tests 08/05/23 05:04: WBC 7.8, RBC 4.01 L, Hgb 12.5 L, Hct 37.6 L, MCV 93.8, MCH 31.2, MCHC 33.2, Plt Count 162, MPV 10.0, Immature Gran % (Auto) 1.400 H, Neut % (Auto) 47.8, Lymph % (Auto) 35.6, [place] % (Auto) 10.7 H, Eos % (Auto) 4.0, Baso % (Auto) 0.5, Absolute Neuts (auto) 3.7, Nucleated RBC % 0, Sodium 139, Potassium 4.2, Chloride 108 H, Carbon Dioxide 26.0, Anion Gap 5, BUN 20 H, Creatinine 1.25, Est GFR (MDRD) Af Amer 73, Est GFR (MDRD) Non-Af 60, BUN/Creatinine Ratio 16.0, Glucose 96, Calcium 9.0, Phosphorus 3.4, Magnesium 1.9 Rhythm: EKG: ECHO: Stress Test: Cardiac Cath: PCI: CT Surgery: Holter monitor: EPS: PPM: CXR: Chest CT Scan: Physical Exam Const oriented x3 HEENT normocephalic Eyes EOMs intact bilaterally Neck no JVD Chest inspection of chest normal Resp normal respiratory effort and clear to auscultation bilaterally Cardio regular rate, regular rhythm, S1 normal heart sound, S2 normal heart sound, no murmurs, no rub and no gallops Extremity no pedal edema Skin no rashes or lesions noted Neuro Neuro Narrative: Alert and oriented x 3 Psych mental status grossly normal Assessment & Plan Assessment/Plan (1) Chest pain: QUALIFIERS: Chest pain type: unspecified Qualified Code(s): R07.9 - Chest pain, unspecified PLAN: The patient's chest discomfort has not recurred overnight. It had been somewhat atypical occurring only at rest in the recumbent position. However he did have an abnormal pharmacologic nuclear stress test. And he does have known coronary disease. (2) Coronary artery disease: QUALIFIERS: Coronary Disease-Associated Artery/Lesion type: [place] artery [place] vs. transplanted heart: [place] heart Associated angina: unspecified whether angina present Qualified Code(s): I25.10 - Atherosclerotic heart disease of [place] coronary artery without angina pectoris PLAN: He is status post remote stenting he believes the symptoms he is experiencing that brought him to the hospital are identical to what he had prior to his stenting procedures. (3) Abnormal nuclear stress test: PLAN: The patient's stress test showed posterior scar with yvette-infarct ischemia. He was scheduled for an outpatient cath in the next 10 days but presented to the emergency department with rest pain. The patient will be scheduled for left heart catheterization tomorrow with Dr. Rojas. PLAN: Plan Plan cath tomorrow morning. The patient is aware the procedure risk/benefit and alternatives explained to the patient he has had multiple caths and at least 2 PCI's in the past. Charges/Coding Visit Charges Inpatient E&M: 55348 Subs Hosp L2
[2023-08-05] MEDS: Aspirin 81 MG TAB.CHEW PO (09:29)
[2023-08-05] MEDS: Famotidine 20 MG Tablet 40 MG PO ×2 (09:29→21:34)
[2023-08-05] MEDS: Metoprolol Tartrate 25 MG Tablet PO ×2 (09:29→21:35)
[2023-08-05] MEDS: Isosorbide Mononitrate 30 MG Tablet PO (09:29)
[2023-08-05] MEDS: levoFLOXacin 500 MG Tablet PO (09:29)
[2023-08-05] MEDS: Pantoprazole Sodium 40 MG Tablet PO ×2 (09:30→21:35)
[2023-08-05] MEDS: Clopidogrel Bisulfate 75 MG Tablet PO (09:30)
[2023-08-05] MEDS: Enoxaparin 40 MG/0.4 ML Syringe SC (09:31)
--- NOTE | 2023-08-05 10:00 | PCM.PN.HOSP ---
Reason for Visit Reason for Visit: Diagnoses Mixed hyperlipidemia (08/03/23) Essential (primary) hypertension (08/03/23) Unstable angina (08/03/23) Atherosclerotic heart disease of [place] coronary artery without angina pectoris (08/03/23) Chest pain, unspecified (08/03/23) Abnormal result of other cardiovascular function study (08/03/23) Subjective Subjective Patient seen complains of having experienced some epigastric discomfort during the night. Plan is for patient to undergo left heart catheterization in a.m. Objective Data Objective Data Vital Signs: Vital Signs Temp Pulse Resp BP Pulse Ox O2 Del Method O2 Flow Rate 97.0 F L 72 16 123/71 H 97 Room Air 2 08/05/23 09:25 08/05/23 09:29 08/05/23 09:25 08/05/23 09:25 08/05/23 09:25 08/05/23 09:25 08/03/23 15:10 Oxygen Flow Rate (L/min) 2 Oxygen Delivery Method Room Air Weight: 86.5 kg Body Mass Index (BMI) 30.7 Intake & Output: Intake and Output for Last 24 Hours 08/03/23 08/04/23 08/06/23 23:59 23:59 00:59 Intake Total 500 / 500 Balance 500 / 500 Lab / Micro Data 08/05/23 05:04 08/05/23 05:04 Labs: Laboratory Results - last 24 hr 08/05/23 05:04: WBC 7.8, RBC 4.01 L, Hgb 12.5 L, Hct 37.6 L, MCV 93.8, MCH 31.2, MCHC 33.2, RDW Std Deviation 44.5 H, RDW Coeff of Leeann 13.1, Plt Count 162, MPV 10.0, Immature Gran % (Auto) 1.400 H, Neut % (Auto) 47.8, Lymph % (Auto) 35.6, [place] % (Auto) 10.7 H, Eos % (Auto) 4.0, Baso % (Auto) 0.5, Absolute Neuts (auto) 3.7, Absolute Lymphs (auto) 2.77, Nucleated RBC % 0, Sodium 139, Potassium 4.2, Chloride 108 H, Carbon Dioxide 26.0, Anion Gap 5, BUN 20 H, Creatinine 1.25, Estim Creat Clear Calc 54.26, Est GFR (MDRD) Af Amer 73, Est GFR (MDRD) Non-Af 60, BUN/Creatinine Ratio 16.0, Glucose 96, Calcium 9.0, Phosphorus 3.4, Magnesium 1.9 Rhythm Strip Rhythm Strip: Sinus Rhythm Rate: 85 Ectopy: PVC(s) (Some in a bigeminal pattern.) Physical Exam Narrative GENERAL: cooperative HEENT: Atraumatic; normocephalic EYES; Anicteric, Normal Conjunctiva NECK; supple, normal thyroid, RESPIRATORY: Diminished to auscultation CARDIOVASCULAR: Regular S1 S2, GI: soft, normoactive bowel sounds, : No Renal angle tenderness; EXTREMITIES: No edema, no clubbing, MUSCULOSKELETAL: no muscle wasting NEURO: Awake; no lateralizing signs. SKIN: No Rash PSYCH; Flat affect Assessment & Plan Assessment/Plan (1) Unstable angina: PLAN: Plan Patient is a 73-year-old gentleman with recent abnormal stress test who is scheduled to undergo left heart catheterization on 08/14/2023 presented to the emergency department with chest pain and assessment of unstable angina made, admitted to monitored bed for further management 1. Chest pain consistent with unstable angina ? Patient had abnormal stress test on 07/26/2023 and scheduled to undergo left heart catheterization on 08/14/2023 presented with chest pain. Cardiac enzymes have so far been negative to date treatment initiated per protocol consultation placed to cardiology plan is for patient to undergo left heart catheterization likely on 08/06/2023 ? 08/05/2023;Patient seen complains of having experienced some epigastric discomfort during the night. Plan is for patient to undergo left heart catheterization in a.m. 2. Coronary artery disease ? With previous PCI patient remains on guideline directed medical therapy 3. Hypertension - Blood pressure controlled, home medications continued with dose adjustment as needed 4. Dyslipidemia -Patient is on statin therapy, continued at home dose 5. Gout ? Symptoms controlled on allopurinol 6. BPH with lower urinary obstructive symptoms - Patient treated with tamsulosin and finasteride 7. GERD ? Patient is on famotidine 8. Vitamin D deficiency ? Patient is on vitamin D3 supplement at home 9. Class I obesity with BMI of 31 ? Complicating care weight loss advised DVT prophylaxis ? HI Caity Time spent in the patient's overall evaluation,decision-making process, review of diagnostic data, adjustment of management, discussion with other providers, nursing nursing and ancillary staff involved in patient's care documentation, 36 minutes Charges/Coding Visit Charges Inpatient E&M: 69698 Subs Hosp L2
[2023-08-05] MEDS: Finasteride 5 MG Tablet PO (21:33)
[2023-08-05] MEDS: ALPRAZolam 0.5 MG Tablet PO (21:33)
[2023-08-05] MEDS: Tamsulosin HCl 0.4 MG Capsule 0.400000000000000022 MG PO (21:33)
[2023-08-05] MEDS: Tolterodine Tartrate 4 MG CAP.SA PO (21:34)
[2023-08-05] MEDS: Atorvastatin Calcium 20 MG Tablet PO (21:34)
[2023-08-05] MEDS: amLODIPine 5 MG Tablet PO (21:34)
[2023-08-05] MEDS: Allopurinol 100 MG Tablet 200 MG PO (21:40)
[2023-08-06] VITALS (21 sets, daily range): BP systolic 111–178; BP diastolic 74–93; PULSE 72–109; RESP 16–28; TEMP 36.2–37; O2SAT 95–99
[2023-08-06 04:23] LABS: Absolute Lymphocyte Count 2.27 X10^3/uL (0.83-4.51); Absolute Neutrophil Count 4.8 X10^3/uL (2.0-7.7); Basophil# 0.03 X10^3/uL; Basophil% 0.4 % (0-1); Eosinophil# 0.21 X10^3/uL; Eosinophils% 2.5 % (0-5); Hematocrit 40.7 % (40-54); Hemoglobin 13.9 g/dL (13.0-16.5); Lymphocyte # 2.27 X10^3/ul (0.83-4.51); Lymphocyte % 27.5 % (19-41); Mean Corp Hgb Conc 34.2 g/dL (32-36); Mean Corpuscular Hgb 31.2 pg (27.0-32.0); Mean Corpuscular Volume 91.3 fL (80-94); Mean Platelet Vol. 9.3 fl (6.2-12.0); Monocyte# 0.88 X10^3/uL; Monocyte% 10.7 % (0-10); NRBC Flagged by Analyzer 0 % (0-5); Neutrophil # 4.78 X10^3/uL (2.7-7.7); Neutrophil % 57.9 % (47-70); Platelet Count 172 K/mm3 (150-450); RBC Distribution Width CV 13.1 % (11.6-14.6); RBC Distribution Width SD 43.1 fl (35.1-43.9); Red Blood Count 4.46 M/mm3 (4.6-6.2); White Blood Count 8.3 K/mm3 (4.4-11.0)
[2023-08-06 04:45] LABS: Anion Gap 7 (5-15); BUN 22 mg/dL (7-18); BUN/Creat Ratio 16.4 RATIO (10-20); Calcium,Total 9.6 mg/dL (8.5-10.1); Chloride 106 mmol/L (98-107); Creatinine, Serum 1.34 mg/dL (0.70-1.30); EST Glomerular Filtration Rate 56 mL/min (>60); Est Glom Filt Rate - Afr Amer 67 mL/min (>60); Estimated Creatinine Clearance 50.61 ml/min; Glucose 113 mg/dL (74-106); Potassium 3.9 mmol/L (3.5-5.1); Sodium Level 139 mmol/L (136-145)
--- NOTE | 2023-08-06 05:00 | EKG12_ITS ---
Test Reason : ARREST Blood Pressure : / mmHG Vent. Rate : 101 BPM Atrial Rate : 101 BPM P-R Int : 134 ms QRS Dur : 104 ms QT Int : 334 ms P-R-T Axes : 054 -51 099 degrees QTc Int : 433 ms Poor data quality, interpretation may be adversely affected Sinus tachycardia Left axis deviation ST & T wave abnormality, consider lateral ischemia Abnormal ECG No previous ECGs available Confirmed by Tyrone Rodriguez ([id number]), editor greeting card ROBERTO RAHMAN ([id number]) on 08/07/2023 11:31:48 AM Referred By: GLENN Confirmed By:Tyrone Rodriguez
[2023-08-06] MEDS: Isosorbide Mononitrate 30 MG Tablet PO (05:13)
[2023-08-06] MEDS: 0.9% Normal Saline (1000mL) 1,000 ML 15 ML IV (05:13)
[2023-08-06] MEDS: Metoprolol Tartrate 25 MG Tablet PO ×2 (05:13→22:55)
[2023-08-06] MEDS: Aspirin 81 MG TAB.CHEW PO (05:13)
[2023-08-06] MEDS: Clopidogrel Bisulfate 75 MG Tablet PO (05:13)
[2023-08-06] MEDS: ALPRAZolam 0.25 MG Tablet PO ×2 (05:14→14:11)
[2023-08-06] MEDS: Ondansetron ODT 4 MG Tablet PO (05:48)
--- NOTE | 2023-08-06 08:48 | PCM.PN.CARD ---
Subjective Subjective Patient continues complain of dull headache which is most consistent with his institution of long-acting nitrates while hospitalized. However, he has had no recurrence of his chest symptoms since institution of the long-acting nitrate. His enzymes are negative he did have a positive stress test in June and was scheduled for cath a week from tomorrow. The patient is scheduled for catheterization today as an inpatient. Objective Data Vital Signs: Vital Signs Temp Pulse Resp BP Pulse Ox O2 Del Method O2 Flow Rate 98.6 F 72 18 123/79 H 96 Room Air 2 08/06/23 05:10 08/06/23 05:13 08/06/23 05:10 08/06/23 05:10 08/06/23 05:10 08/06/23 05:10 08/03/23 15:10 Oxygen Flow Rate (L/min) 2 Oxygen Delivery Method Room Air Weight: 190 lb 11.198 oz Body Mass Index (BMI) 30.7 Intake & Output: Intake and Output for Last 24 Hours 08/04/23 08/05/23 08/06/23 22:59 23:59 23:59 Intake Total 0.5 / 0.5 Balance 0.5 / 0.5 Lab / Micro Data 08/06/23 03:55 08/06/23 03:55 Labs: Laboratory Results - last 24 hr 08/06/23 03:55: WBC 8.3, RBC 4.46 L, Hgb 13.9, Hct 40.7, MCV 91.3, MCH 31.2, MCHC 34.2, RDW Std Deviation 43.1, RDW Coeff of Leeann 13.1, Plt Count 172, MPV 9.3, Immature Gran % (Auto) 1.000 H, Neut % (Auto) 57.9, Lymph % (Auto) 27.5, [place] % (Auto) 10.7 H, Eos % (Auto) 2.5, Baso % (Auto) 0.4, Absolute Neuts (auto) 4.8, Absolute Lymphs (auto) 2.27, Nucleated RBC % 0, Sodium 139, Potassium 3.9, Chloride 106, Carbon Dioxide 26.0, Anion Gap 7, BUN 22 H, Creatinine 1.34 H, Estim Creat Clear Calc 50.61, Est GFR (MDRD) Af Amer 67, Est GFR (MDRD) Non-Af 56 L, BUN/Creatinine Ratio 16.4, Glucose 113 H, Calcium 9.6 Rhythm Strip Rhythm Strip: Sinus Rhythm Rate: 68 Cardiology Labs/Tests 08/06/23 03:55: WBC 8.3, RBC 4.46 L, Hgb 13.9, Hct 40.7, MCV 91.3, MCH 31.2, MCHC 34.2, Plt Count 172, MPV 9.3, Immature Gran % (Auto) 1.000 H, Neut % (Auto) 57.9, Lymph % (Auto) 27.5, [place] % (Auto) 10.7 H, Eos % (Auto) 2.5, Baso % (Auto) 0.4, Absolute Neuts (auto) 4.8, Nucleated RBC % 0, Sodium 139, Potassium 3.9, Chloride 106, Carbon Dioxide 26.0, Anion Gap 7, BUN 22 H, Creatinine 1.34 H, Est GFR (MDRD) Af Amer 67, Est GFR (MDRD) Non-Af 56 L, BUN/Creatinine Ratio 16.4, Glucose 113 H, Calcium 9.6 Rhythm: EKG: ECHO: Stress Test: Cardiac Cath: PCI: CT Surgery: Holter monitor: EPS: PPM: CXR: Chest CT Scan: Physical Exam Const oriented x3 HEENT normocephalic Eyes EOMs intact bilaterally Chest inspection of chest normal Resp normal respiratory effort and clear to auscultation bilaterally Cardio regular rate, regular rhythm, S1 normal heart sound, S2 normal heart sound, no murmurs, no rub and no gallops Extremity no pedal edema Skin no rashes or lesions noted Neuro Neuro Narrative: Alert and oriented x 3. Psych mental status grossly normal Assessment & Plan Assessment/Plan (1) Abnormal nuclear stress test: PLAN: The patient stress test done in June 2023 showed posterior scar with yvette-infarct ischemia. The patient is now presented with recurrent rest pain that has been controlled since hospitalization with long-acting nitrates. Although he is experiencing headaches. The patient scheduled for left heart catheterization today. (2) CAD S/P percutaneous coronary angioplasty: PLAN: Patient will undergo catheterization today he has a remote circumflex stenting. PLAN: Plan 1. Left heart catheterization today. If this checks out with no significant on Imdur 30 mg daily. He should take Tylenol progression of disease the patient can be discharged home and trial this for at least 10 days as it has controlled his symptoms. Charges/Coding Visit Charges Inpatient E&M: 96364 Subs Hosp L2
--- NOTE | 2023-08-06 09:22 | CASEMGMT ---
Insurance review for hospitals In-network with [facility] insurance if transfer is recommended is as follows:?[facility], [facility], [facility], [facility], [facility] ([facility]), and [facility]. Gaby Do, Discharge Planning Asst.
--- NOTE | 2023-08-06 10:50 | CL.D_ITS ---
Patient Name: SEBASTIEN BARON Study Date: 08/06/2023 Performing: Carlos Rojas MD Ht: 66 inches 167.64 cm : 1950 Wt: 190.7 lbs 86.5 kg Age: 73 Gender: male BSA: 1.96 PROCEDURE(S) PERFORMED DC01-(55930)LHC/COR/LV CLINICAL PROFILE AND INDICATIONS Indications: Suspected CAD Heart Failure: None Stress/Imaging Date: 07/21/23Stress Test with SPECT MPI: Positive Low Risk CAD Presentations: Stable angina. CONCLUSIONS High-grade right coronary artery lesion in-stent stenosis with patent stent in the LAD and circumflex artery and [id number] collaterals. RECOMMENDATIONS Referred for immediate PCI DESCRIPTION OF PROCEDURE The patient arrived to the procedure lab. The risks and benefits of the procedure as well as a full description of our services here and current unavailability of surgical backup were fully explained to the patient and/or their significant other prior to the catheterization. The Timeout was completed, verifying the correct patient and procedure. The patient's procedural site was prepped and draped in the usual fashion. Local anesthetic was given subcutaneously to right radial region with Lidocaine 2%. Using a modified Seldinger technique, arterial access was obtained via the Right Ulnar artery a 6Fr sheath was inserted by Dr Salcedo Left Coronary Artery selective angiography was performed in multiple views using a 6 Fr. 4.0 [place] catheter. Right Coronary Artery selective angiography was then performed in multiple views using a 5 Fr. 4.0 [place] catheter. CORONARY ANGIOGRAPHY DOMINANCE: Right Dominant LEFT HEART ASSESSMENT Left Ventricular Ejection Fraction: by Echo 55 % Normal Left Ventricular systolic function LEFT MAIN: Angiographically normal LEFT ANTERIOR DESCENDING ARTERY: Previously placed stent in the mid left anterior descending artery with no significant stenosis noted. Mild disease noted in the ostium of the diagonal vessel. CIRCUMFLEX ARTERY: Nondominant vessel with previously placed stent in the mid circumflex artery which is noted to be patent. 2 obtuse marginal branches have no significant disease. Left to right collaterals seen filling the distal posterolateral vessel. RIGHT CORONARY ARTERY: Dominant vessel with mid right coronary artery exhibiting 95% stenosis noted and moderate distal posterolateral vessel disease. COMPLICATIONS No Complications PROCEDURE MEDICATIONS Fentanyl 50 mcg IV Versed 1 mg IV Fentanyl 50 mcg IV Versed 1 mg IV Oxygen: 2 L/min via nasal cannula Heparin given IA 08/06/2023 10:35:05 Heparin 4000 unit(s) IV 08/06/2023 10:45:12 Verapamil 2.5mg, Ntg 100mcgs, 3000 units of Heparin given IA 08/06/2023 10:35:05 SUMMARY OF HEMODYNAMIC DATA Time AIR REST ECG 09:51:37 AO 98/64 (77) SA 10:37:15 LV 111/0, 2 10:46:57 LV 120/-3, 5 10:47:03 LVp 134/-2, 12 10:47:14 AOp 134/72 (97) 10:47:19 AO 128/60 (84) 10:47:37 10:47:49 Signed By Carlos Rojas MD On 08/06/2023 10:49:46 Carlos Rojas MD
--- NOTE | 2023-08-06 11:36 | NURSING ---
pt to go to icu post cath recovery. report called to icu with no questions. encyclopedia research worker to pack up belongings
--- NOTE | 2023-08-06 12:15 | EKG12_ITS ---
Test Reason : POST STENTS Blood Pressure : / mmHG Vent. Rate : 103 BPM Atrial Rate : 103 BPM P-R Int : 132 ms QRS Dur : 104 ms QT Int : 354 ms P-R-T Axes : 051 -47 088 degrees QTc Int : 463 ms Critical Test Result: STEMI Sinus tachycardia with frequent Premature ventricular complexes Left axis deviation Inferior infarct , possibly acute Marked ST abnormality, possible lateral subendocardial injury Abnormal ECG When compared with ECG of 06-AUG-2023 05:26, MANUAL COMPARISON REQUIRED, DATA IS UNCONFIRMED Confirmed by Tyrone Rodriguez ([id number]), food expeditor ROBERTO RAHMAN ([id number]) on 08/07/2023 11:31:23 AM Referred By: RENEE Confirmed By:Tyrone Rodriguez
[2023-08-06] MEDS: Nitroglycerin Infusion 250 ML 6 MG CONT INF (12:20)
[2023-08-06] MEDS: 0.9% Normal Saline (1000mL) 1,000 ML 70 ML IV (12:43)
[2023-08-06] MEDS: EPTIFIBATIDE 75 MG/100 ML VIAL 13.8000000000000007 MG CONT INF (12:43)
--- NOTE | 2023-08-06 13:53 | CHAPLAIN ---
Type of Pastoral Visit ___ Initial Visit ___ Follow-up Visit ___ On-call Visit ___ General Patient Visit ___ Spiritual Assessment ___ Family Conference ___ Bereavement ___ Rapid Response _x__ Code Blue ___ Other (describe below) Pastoral Care Referral From ___ Patient _x__ Family ___ Nurse ___ Physician ___ Waiter/Waitress Room Service ___ Economic Geographer _x__ Other (describe below) Sacrament/Intervention _x__ Active listening ___ Anointing ___ Pentecostalism ___ Bereavement ___ Communion ___ Ludmila exploration ___ _x__ Life review ___ Prayer ___ Reconciliation ___ Sacrament of Sick _x__ Supportive presence ___ Wedding ___ Other (describe below) Pastoral Comments responded to code blue and found patient that had just arrived to ICU from the labor relations representative; spouse had left the room during CPR and was found in the hallway; gave support, presence, and escort back to waiting room at her request due to her unease being in room or near it while life saving measures were given to patient; sat with spouse and talked about the patient, his needs, and what she needed at this time; other family members arrived and then this twosome was taken to pt and could sit with him as he recovers from the life saving measures; spouse is vocal about the patient's needs and history;
[2023-08-06 14:00] LABS: Hematocrit 41.8 % (40-54); Hemoglobin 14.1 g/dL (13.0-16.5); Mean Corp Hgb Conc 33.7 g/dL (32-36); Mean Corpuscular Hgb 30.7 pg (27.0-32.0); Mean Corpuscular Volume 90.9 fL (80-94); Mean Platelet Vol. 9.8 fl (6.2-12.0); Platelet Count 204 K/mm3 (150-450); RBC Distribution Width CV 13.1 % (11.6-14.6); RBC Distribution Width SD 43.4 fl (35.1-43.9); White Blood Count 15.7 K/mm3 (4.4-11.0)
[2023-08-06] MEDS: Amiodarone 360 MG in Dextrose 5% Viaflo Bag 192.8 ML 16.6999999999999993 MG CONT INF (14:03)
--- NOTE | 2023-08-06 14:04 | CRPHASE1_ITS ---
Patient Communication Patient Information Former Patient:: Phase II PHII Cardiac Rehab Discussed with Patient:: Yes Guide to Cardiac Rehab Given to Patient:: Yes Cardiac Rehab Facility Choice List Given to Patient:: Yes Communication to Cardiac Rehab Choice Program [facility] CR PHII:: Communication Given to CR Telephone Instrument Supervisor:: Nabil Salcedo Refer Phase II Cardiac Rehab:: Yes Sessions:: 36 sessions - 3 days/wk, 12 weeks Cardiac Rehabilitation Info Program Information Cardiac Rehabilitation Program Information: Cardiac Rehab The cardiac rehab team at [facility] consists of highly skilled exercise physiologists, nurses, respiratory therapists and physicians working together with you. Our purpose is to help you have a full recovery and achieve the goals you set for yourself. Over the years many of our patients have returned to activities they assumed they would never do again! We can help restore your confidence and motivation to make lifestyle changes that can have a significant impact on your health and quality of life! We can help answer questions and concerns you may have about exercise, lifestyle, medications, diet, stress and anxiety which are common following a hospitalization. WE monitor ECG and vital signs during exercise and discuss your progress with you and report to your physician(s). Cardiac Rehab is proven to help reduce readmissions, improve functional capacity and lower recurrence of problems with your heart. Our Cardiac Rehab program is Certified by the [place] [employer] Pulmonary [employer] (AACVPR) and Accredited by the [place] [employer] through our [facility]. You can contact us at . We invite you to call us with your questions or to get started in our program. If you have other questions or concerns be sure to ask your physician/provider during your follow-up visit. WE look forward to seeing you!
[2023-08-06] MEDS: Pantoprazole Sodium 40 MG Tablet PO ×2 (14:05→22:57)
[2023-08-06] MEDS: Famotidine 20 MG Tablet 40 MG PO ×2 (14:05→22:56)
[2023-08-06] MEDS: levoFLOXacin 500 MG Tablet PO (14:05)
--- NOTE | 2023-08-06 14:05 | CRPH1.INSTRU ---
General Education Discussed with Patient CAD and cardiac anatomy and function:: Patient communicates acknowledgment Explanation of diagnoses and procedures:: Patient communicates acknowledgment Sign/Symptoms of HI:: Patient communicates acknowledgment Antiplatelet therapy: Patient communicates acknowledgment Proper use of NTG-SL: Patient communicates acknowledgment Emergency procedures and activation of EMS: Patient communicates acknowledgment Compliance of all prescribed medications: Patient communicates acknowledgment Dyslipidemia Risk Factors Patient Dyslipidemia Risk Factors Are:: Total Cholesterol, Triglycerides, HDL and LDL Recommendations Recommendations Include:: Lipid profile not available Response Code Dyslipidemia Response Code:: Patient communicates acknowledgment Overweight/Obesity Risk Factors Patient Overweight/Obesity Risk Factors Are:: Obesity - > or = 30 Recommendations Recommendations Include:: Weight loss of 5-10%, Reduced calorie diet and Exercise 5-7 times/week Response Code Overweight/Obesity:: Patient communicates acknowledgment and Family communicates acknowledgment Hypertension Recommendations Recommendations Include:: Maintain BP <130/85 Response Code Hypertension:: Patient communicates acknowledgment Heart Disease Risk Factors Patient Heart Disease Risk Factors Are:: Previous cardiac event Recommendations Recommendations Include:: Educated family members of their risk and Educated family members of importance of prevention of heart disease Response Code Heart Disease Response Code:: Patient communicates acknowledgment Sedentary Risk Factors Patient Sedentary Risk Factors Are:: Lack of regular exercise Recommendations Recommendations Include:: Aerobic exercise 5-7 times/week for 20-30 minutes continuously, Benefits of regular exercise, Discussed home walking program and Monitored Outpatient Cardiac Rehab Response Code Sedentary Response Code:: Patient communicates acknowledgment
--- NOTE | 2023-08-06 16:51 | CHAPLAIN ---
Type of Pastoral Visit ___ Initial Visit _x__ Follow-up Visit ___ On-call Visit ___ General Patient Visit ___ Spiritual Assessment ___ Family Conference ___ Bereavement ___ Rapid Response ___ Code Blue ___ Other (describe below) Pastoral Care Referral From _x__ Patient _x__ Family ___ Nurse ___ Physician ___ Pan Reclaim Processor ___ Mat Sewer ___ Other (describe below) Sacrament/Intervention _x__ Active listening ___ Anointing ___ Religious ___ Bereavement ___ Communion ___ Ludmila exploration ___ ___ Life review ___ Prayer ___ Reconciliation ___ Sacrament of Sick _x__ Supportive presence ___ Wedding ___ Other (describe below) Pastoral Comments
--- NOTE | 2023-08-06 17:00 | NURSING ---
08/06/23 1230: Patients post cath EKG resulted STEMI, Dr. Salcedo notified.- See physician notification documentation 1250:This RN noted patients right forearm hard and painful. Air placed back in TR band and wood and wood products labourer called for assistance. While waiting on additional staff at 1302 patient went into VFIB, went unresponsive. CPR started. See code blue charting. 1315: Dr. Salcedo at bedside for code and assessed patients right arm hematoma. MD removed TR band and gave orders to elevate right arm and apply ice pack. Pulses dopplered.
--- NOTE | 2023-08-06 18:09 | PN.HOSP_ITS ---
Reason for Visit Reason for Visit: Chest pain Subjective Subjective Mr. Owens is a 73-year-old white male who presented to the emergency department [facility] on 08/03/2023 with a chief complaint of chest pain. He was scheduled for an outpatient cardiac catheterization on 08/14/2023 by his public relations analyst, however, he started having severe chest pain on the afternoon of presentation and elected to come to the emergency department. He denied any lightheadedness or dizziness but did admit to headache on presentation. He had no shortness of breath, nausea, or vomiting. He had a stress test that was done on 07/26/2023 which showed mild to moderate yvette-infarct ischemia and no acute ischemic changes. His vital signs on presentation were unremarkable and he was satting 93% on 2 L nasal cannula. His CBC was overall unremarkable and his BMP was overall unremarkable. His initial and delta troponin were both unremarkable. EKG showed PVCs but no acute ST-T wave changes and he was admitted for unstable angina. Cardiology was consulted and recommended cardiac catheterization during this acute admission and adjustments were made in his ant ihypertensive regimen. He was taken to the Dish Room Worker on 08/06/2023 at which time he was found to have high-grade right coronary artery lesion with in-stent stenosis and a patent stent in the LAD with a circumflex having left to right collaterals. He was referred for immediate PCI and 2 stents were placed in the RCA. Of note a small ostial vessel was obstructed while reopening the right coronary artery due to his stenosis. Procedure was completed and he was transferred to the ICU. Unfortunately he developed unstable ventricular tachycardia and a CODE BLUE was called. He got about 2 minutes of CPR and was defibrillated with return to sinus tachycardia. Cardiology was at the bedside and instituted into arrhythmia with amiodarone. The patient has been doing well since this point in time. He had a bout of hematemesis shortly after his arrest but his hemoglobins have remained stable. He also had postcatheterization hematoma of the right forearm related to his CPR which is softening at this time and he has no signs of compartment syndrome at his distal right upper extremity. Family was at the bedside and updated. Patient currently has no complaints other than some soreness everywhere. Mohr catheter was placed and he is complaining of some penile pain related to this. Objective Data Objective Data Vital Signs: Vital Signs Temp Pulse Resp BP Pulse Ox O2 Del Method O2 Flow Rate 97.1 F L 105 H 28 H 120/83 H 96 Nasal Cannula 2 08/06/23 16:00 08/06/23 17:00 08/06/23 17:00 08/06/23 17:00 08/06/23 17:00 08/06/23 17:00 08/06/23 17:00 Oxygen Flow Rate (L/min) 2 Oxygen Delivery Method Nasal Cannula Weight: 86.5 kg Body Mass Index (BMI) 30.7 Intake & Output: Intake and Output for Last 24 Hours 08/04/23 08/05/23 08/06/23 22:59 23:59 23:59 Intake Total 97.48 / 97.48 Output Total 100 / 100 Balance -2.52 / -2.52 Lab / Micro Data 08/06/23 13:50 08/06/23 03:55 Labs: Laboratory Results - last 24 hr 08/06/23 03:55: WBC 8.3, RBC 4.46 L, Hgb 13.9, Hct 40.7, MCV 91.3, MCH 31.2, MCHC 34.2, RDW Std Deviation 43.1, RDW Coeff of Leeann 13.1, Plt Count 172, MPV 9.3, Immature Gran % (Auto) 1.000 H, Neut % (Auto) 57.9, Lymph % (Auto) 27.5, [place] % (Auto) 10.7 H, Eos % (Auto) 2.5, Baso % (Auto) 0.4, Absolute Neuts (auto) 4.8, Absolute Lymphs (auto) 2.27, Nucleated RBC % 0, Sodium 139, Potassium 3.9, Chloride 106, Carbon Dioxide 26.0, Anion Gap 7, BUN 22 H, Creatinine 1.34 H, Estim Creat Clear Calc 50.61, Est GFR (MDRD) Af Amer 67, Est GFR (MDRD) Non-Af 56 L, BUN/Creatinine Ratio 16.4, Glucose 113 H, Calcium 9.6 08/06/23 13:50: WBC 15.7 H, RBC 4.60, Hgb 14.1, Hct 41.8, MCV 90.9, MCH 30.7, MCHC 33.7, RDW Std Deviation 43.4, RDW Coeff of Leeann 13.1, Plt Count 204, MPV 9.8 Rhythm Strip Rhythm Strip: Sinus Rhythm Rate: 68 Ectopy: PVC(s) (Some in a bigeminal pattern.) Physical Exam Const alert, oriented x3, no apparent distress and well nourished Constitutional Narrative: Obese, older, white male, sitting up in bed watching television, appears comfortable, at bedside, nontoxic-appearing HEENT head/scalp atraumatic and moist oral mucous membranes HEENT Narrative: Mallampati 2-3, no thrush Head and Scalp: normocephalic Resp normal respiratory effort, no retractions, no use of accessory muscles and clear to auscultation bilaterally Resp Narrative: Some guarding with deep breathing due to pain related to CPR Auscultation: Negative for rales, rhonchi or wheezes Cardio regular rhythm, S1 normal heart sound, S2 normal heart sound, no murmurs, no rub, no gallops and no clicks Cardio Narrative: Sinus tachycardia GI normal to inspection, nondistended, normoactive bowel sounds, soft to palpation and non-tender Extremity Extremity Narrative: Right arm is swollen and mildly firm however softening, sensation in right hand is normal with good cap refill, no cyanosis or clubbing, no other edema are noted in the other extremities, ecchymosis is forming in the right arm and hand Neuro oriented x3, moves all extremities and no focal motor deficits Speech: speech normal Psych affect normal Psych Narrative: Eye contact is good, patient interacts appropriately Assessment & Plan Assessment/Plan (1) Abnormal nuclear stress test: (2) CAD S/P percutaneous coronary angioplasty: (3) Chest pain: QUALIFIERS: Chest pain type: unspecified Qualified Code(s): R07.9 - Chest pain, unspecified (4) Cardiopulmonary arrest: (5) Ventricular tachycardia: PLAN: Plan Unstable angina -2 drug-eluting stents placed in stenotic area of RCA -Currently chest pain-free -Continue -Continue Plavix Continue isosorbide mononitrate -Continue metoprolol -Continue atorvastatin -Cardiology following-appreciate input CPA with ventricular tachycardia -2 minutes of CPR with ROSC -Discussed with cardiology and they feel that this is likely related to small ostial obstruction from stent -Amiodarone initiated we will continue -Cardiology following-appreciate input -No further events since initiating amiodarone -Will check TSH Right arm hematoma status postcardiac catheterization -Related to cardiopulmonary arrest and resuscitation -No current signs of compartment syndrome -Continue to watch neurovascular status and right arm and hand--> discussed with nursing -Every 4 hour assessment ordered Acute bronchitis -PCP recently placed patient on Levaquin -Complete antibiotic course -Will need to monitor acute TC due to amiodarone use CAD/HTN/HPL -Continue aspirin, Plavix, beta-shreya, isosorbide mononitrate, statin -Continue home amlodipine -Cardiology following-appreciate input -See above Gout -Continue home allopurinol -Continue home colchicine GERD -Continue home famotidine -Continue home Protonix BPH with retention -Continue Flomax -Continue Proscar -Mohr in place and will remove tomorrow if medically stable Vitamin D deficiency -Continue home vitamin D supplementation Obesity -BMI is 30.8 -recommend weight loss -Complicates treatment, prognosis, outcomes DVT prophylaxis -Continue subcu Lovenox CODE STATUS -Full code Charges/Coding Visit Charges Inpatient E&M: 40123 Subs Hosp L2
[2023-08-06 18:12] LABS: Hematocrit 41.4 % (40-54); Mean Corp Hgb Conc 33.8 g/dL (32-36); Mean Corpuscular Hgb 30.9 pg (27.0-32.0); Mean Corpuscular Volume 91.4 fL (80-94); Mean Platelet Vol. 9.7 fl (6.2-12.0); Platelet Count 182 K/mm3 (150-450); RBC Distribution Width CV 13.2 % (11.6-14.6); RBC Distribution Width SD 43.5 fl (35.1-43.9); Red Blood Count 4.53 M/mm3 (4.6-6.2); White Blood Count 18.3 K/mm3 (4.4-11.0)
[2023-08-06] MEDS: Acetaminophen 500 MG Tablet 1000 MG PO (22:15)
[2023-08-06] MEDS: Ondansetron 4 MG/2 ML Vial IV (22:16)
[2023-08-06] MEDS: ALPRAZolam 0.5 MG Tablet PO (22:16)
[2023-08-06] MEDS: oxyCODONE 5 MG Tablet PO (22:16)
[2023-08-06] MEDS: Tolterodine Tartrate 4 MG CAP.SA PO (22:56)
[2023-08-06] MEDS: amLODIPine 5 MG Tablet PO (22:56)
[2023-08-06] MEDS: Tamsulosin HCl 0.4 MG Capsule 0.400000000000000022 MG PO (22:56)
[2023-08-06] MEDS: Atorvastatin Calcium 20 MG Tablet PO (22:57)
[2023-08-06] MEDS: Finasteride 5 MG Tablet PO (22:57)
[2023-08-06] MEDS: Allopurinol 100 MG Tablet 200 MG PO (22:57)
[2023-08-07] VITALS (27 sets, daily range): BP systolic 94–150; BP diastolic 62–95; PULSE 66–97; RESP 12–26; TEMP 36.6–36.9; O2SAT 92–98; BMI 31.0
[2023-08-07] MEDS: Amiodarone 360 MG in Dextrose 5% Viaflo Bag 192.8 ML 16.6999999999999993 MG CONT INF (00:22)
[2023-08-07 03:30] LABS: Absolute Lymphocyte Count 1.71 X10^3/uL (0.83-4.51); Absolute Neutrophil Count 13.5 X10^3/uL (2.0-7.7); Basophil# 0.05 X10^3/uL; Basophil% 0.3 % (0-1); Eosinophil# 0.01 X10^3/uL; Eosinophils% 0.1 % (0-5); Hematocrit 38.8 % (40-54); Lymphocyte # 1.71 X10^3/ul (0.83-4.51); Mean Corp Hgb Conc 33.5 g/dL (32-36); Mean Corpuscular Hgb 30.6 pg (27.0-32.0); Mean Corpuscular Volume 91.3 fL (80-94); Mean Platelet Vol. 9.8 fl (6.2-12.0); Monocyte# 1.78 X10^3/uL; Monocyte% 10.4 % (0-10); NRBC Flagged by Analyzer 0 % (0-5); Neutrophil # 13.45 X10^3/uL (2.7-7.7); Neutrophil % 78.3 % (47-70); POSITIVE DIFFERENTIAL YES; Platelet Count 186 K/mm3 (150-450); RBC Distribution Width CV 13.3 % (11.6-14.6); RBC Distribution Width SD 43.9 fl (35.1-43.9); Red Blood Count 4.25 M/mm3 (4.6-6.2); White Blood Count 17.2 K/mm3 (4.4-11.0)
[2023-08-07 03:56] LABS: ALB/GLOB Ratio 1.2 RATIO (0.9-2.4); AST(SGOT) 58 U/L (15-37); Alanine Aminotransfer ALT/SGPT 25 U/L (16-61); Albumin, Serum 3.7 g/dL (3.2-5.0); Alkaline Phosphatase 59 U/L (45-117); Anion Gap 9 (5-15); BUN 19 mg/dL (7-18); BUN/Creat Ratio 13.6 RATIO (10-20); Calcium,Total 9.4 mg/dL (8.5-10.1); Chloride 107 mmol/L (98-107); EST Glomerular Filtration Rate 53 mL/min (>60); Est Glom Filt Rate - Afr Amer 64 mL/min (>60); Estimated Creatinine Clearance 48.63 ml/min; Globulin 3.2 g/dL (2.2-4.2); Glucose 127 mg/dL (74-106); Magnesium 1.9 mg/dL (1.6-2.6); Potassium 4.2 mmol/L (3.5-5.1); Protein, Total 6.9 g/dL (6.4-8.2); Sodium Level 139 mmol/L (136-145); Thyroid Stim Hormone (TSH) 0.65 uIU/mL (0.358-3.74)
[2023-08-07 04:07] LABS: Differential Indicated SCAN CRITERIA MET
[2023-08-07 04:11] LABS: Phosphorus 4.7 mg/dL (2.5-4.9)
[2023-08-07] MEDS: Acetaminophen 500 MG Tablet 1000 MG PO ×2 (04:20→19:49)
[2023-08-07] MEDS: oxyCODONE 5 MG Tablet PO ×2 (04:20→19:50)
[2023-08-07] MEDS: ALPRAZolam 0.25 MG Tablet PO (04:20)
[2023-08-07 05:05] LABS: Differential Comment SCANNED
[2023-08-07] MEDS: Famotidine 20 MG Tablet 40 MG PO ×2 (07:39→19:49)
[2023-08-07] MEDS: levoFLOXacin 500 MG Tablet PO (07:39)
[2023-08-07] MEDS: Enoxaparin 40 MG/0.4 ML Syringe SC (07:39)
[2023-08-07] MEDS: Aspirin 81 MG TAB.CHEW PO (07:39)
[2023-08-07] MEDS: Clopidogrel Bisulfate 75 MG Tablet PO (07:40)
--- NOTE | 2023-08-07 08:36 | PCM.PN.CARD ---
Subjective Subjective Events of yesterday were reviewed with the patient and in the chart. The patient had an episode of what appeared to be polymorphic ventricular tachycardia that deteriorated into ventricular fibrillation early after his cardiovascular intervention. Overnight the patient has had rare PVCs he has been on IV amiodarone infusion. His right forearm is less painful than it was yesterday and softer by report of the staff. His neurovascular checks were negative all night long and he reports he can feel all of his fingers and has good capillary refill. Objective Data Vital Signs: Vital Signs Temp Pulse Resp BP Pulse Ox O2 Del Method O2 Flow Rate 98.4 F 74 15 112/74 98 Nasal Cannula 2 08/07/23 04:23 08/07/23 07:00 08/07/23 07:00 08/07/23 06:00 08/07/23 07:00 08/07/23 07:00 08/07/23 07:00 Oxygen Flow Rate (L/min) 2 Oxygen Delivery Method Nasal Cannula Weight: 192 lb 3.889 oz Body Mass Index (BMI) 31.0 Intake & Output: Intake and Output for Last 24 Hours 08/05/23 08/06/23 08/07/23 23:59 23:59 23:59 Intake Total 1518.57 / 1518.57 21.43 / 21.43 Output Total 1600 / 1600 200 / 200 Balance -81.43 / -81.43 -178.57 / -178.57 Lab / Micro Data Attestation: I reviewed the patient's lab results. 08/07/23 03:15 08/07/23 03:15 Labs: Laboratory Results - last 24 hr 08/06/23 13:50: WBC 15.7 H, RBC 4.60, Hgb 14.1, Hct 41.8, MCV 90.9, MCH 30.7, MCHC 33.7, RDW Std Deviation 43.4, RDW Coeff of Leeann 13.1, Plt Count 204, MPV 9.8 08/06/23 18:00: WBC 18.3 H, RBC 4.53 L, Hgb 14.0, Hct 41.4, MCV 91.4, MCH 30.9, MCHC 33.8, RDW Std Deviation 43.5, RDW Coeff of Leeann 13.2, Plt Count 182, MPV 9.7 08/07/23 03:15: WBC 17.2 H, RBC 4.25 L, Hgb 13.0, Hct 38.8 L, MCV 91.3, MCH 30.6, MCHC 33.5, RDW Std Deviation 43.9, RDW Coeff of Leeann 13.3, Plt Count 186, MPV 9.8, Immature Gran % (Auto) 0.900, Neut % (Auto) 78.3 H, Lymph % (Auto) 10.0 L, [place] % (Auto) 10.4 H, Eos % (Auto) 0.1, Baso % (Auto) 0.3, Absolute Neuts (auto) 13.5 H, Absolute Lymphs (auto) 1.71, Nucleated RBC % 0, Differential Comment SCANNED, Diff Path Review September, Sodium 139, Potassium 4.2, Chloride 107, Carbon Dioxide 23.0, Anion Gap 9, BUN 19 H, Creatinine 1.40 H, Estim Creat Clear Calc 48.63, Est GFR (MDRD) Af Amer 64, Est GFR (MDRD) Non-Af 53 L, BUN/Creatinine Ratio 13.6, Glucose 127 H, Calcium 9.4, Phosphorus 4.7, Magnesium 1.9, Total Bilirubin 0.80, AST 58 H, ALT 25, Alkaline Phosphatase 59, Total Protein 6.9, Albumin 3.7, Globulin 3.2, Albumin/Globulin Ratio 1.2, TSH 0.65 Rhythm Strip Rhythm Strip: Sinus Rhythm Rate: 68 Ectopy: PVC(s) (Some in a bigeminal pattern.) Cardiology Labs/Tests 08/06/23 13:50: WBC 15.7 H, RBC 4.60, Hgb 14.1, Hct 41.8, MCV 90.9, MCH 30.7, MCHC 33.7, Plt Count 204, MPV 9.8 08/06/23 18:00: WBC 18.3 H, RBC 4.53 L, Hgb 14.0, Hct 41.4, MCV 91.4, MCH 30.9, MCHC 33.8, Plt Count 182, MPV 9.7 08/07/23 03:15: WBC 17.2 H, RBC 4.25 L, Hgb 13.0, Hct 38.8 L, MCV 91.3, MCH 30.6, MCHC 33.5, Plt Count 186, MPV 9.8, Immature Gran % (Auto) 0.900, Neut % (Auto) 78.3 H, Lymph % (Auto) 10.0 L, [place] % (Auto) 10.4 H, Eos % (Auto) 0.1, Baso % (Auto) 0.3, Absolute Neuts (auto) 13.5 H, Nucleated RBC % 0, Sodium 139, Potassium 4.2, Chloride 107, Carbon Dioxide 23.0, Anion Gap 9, BUN 19 H, Creatinine 1.40 H, Est GFR (MDRD) Af Amer 64, Est GFR (MDRD) Non-Af 53 L, BUN/Creatinine Ratio 13.6, Glucose 127 H, Calcium 9.4, Phosphorus 4.7, Magnesium 1.9, Total Bilirubin 0.80 Rhythm: EKG: ECHO: Stress Test: Cardiac Cath: PCI: CT Surgery: Holter monitor: EPS: PPM: CXR: Chest CT Scan: Physical Exam Const oriented x3 Constitutional Narrative: Sitting up in the chair in no apparent distress. HEENT normocephalic Eyes EOMs intact bilaterally Neck full ROM Chest inspection of chest normal Resp normal respiratory effort and clear to auscultation bilaterally Cardio regular rate, regular rhythm, S1 normal heart sound, S2 normal heart sound, no murmurs, no rub and no gallops Cardio Narrative: Right forearm is tender with ecchymosis noted around the insertion site. There is good capillary refill and normal sensation of the fingers. GI soft to palpation Extremity no pedal edema Skin General Skin Exam: ecchymosis Wound Narrative: At the catheter insertion site in the right radial area. Neuro Neuro Narrative: Alert and oriented x 3 Psych mental status grossly normal Assessment & Plan Assessment/Plan (1) Ventricular tachycardia: PLAN: The ventricular tachycardia. To be ischemic in etiology probably related to jailing of the acute marginal branch of the right coronary with the stenting procedure. He also had slow reflow with during the procedure with stent deployment in the distal right coronary artery. The patient arrested with the ischemic ventricular arrhythmia which was cardioverted and he had 2 minutes of CPR. The patient is up in the chair without complaints this morning. He reports his arm feels better but is still tight. The patient's amiodarone is still running on the IV loading dose. We will discontinue this when the IV load is in and place him on Lopressor 50 mg twice daily. (2) CAD S/P percutaneous coronary angioplasty: PLAN: The patient should stay on his dual antiplatelet therapy uninterrupted for 1 year. Secondary risk factors are being managed as well. He will continue on the rosuvastatin and beta-shreya therapy. The patient be ambulated in the halls today and as long as he pains good vital signs and no significant ectopy he should be able to be discharged to home in the next 24 to 48 hours. PLAN: Plan 1. DC amiodarone once his IV bag infusion is infused 2. Start Lopressor 50 mg twice daily 3. Increase activity as tolerated walking in the halls. Charges/Coding Visit Charges Inpatient E&M: 62690 Subs Hosp L2
[2023-08-07] MEDS: Metoprolol Tartrate 50 MG Tablet PO ×2 (09:27→19:50)
--- NOTE | 2023-08-07 10:00 | EKG12_ITS ---
Test Reason : PRE CI Blood Pressure : / mmHG Vent. Rate : 069 BPM Atrial Rate : 069 BPM P-R Int : 134 ms QRS Dur : 110 ms QT Int : 422 ms P-R-T Axes : 036 -36 042 degrees QTc Int : 452 ms Normal sinus rhythm Left axis deviation Abnormal ECG When compared with ECG of 04-AUG-2023 00:46, MANUAL COMPARISON REQUIRED, DATA IS UNCONFIRMED Confirmed by Tyrone Rodriguez ([id number]), news editor ROBERTO RAHMAN ([id number]) on 08/07/2023 11:38:56 AM Referred By: Confirmed By:Tyrone Rodriguez
--- NOTE | 2023-08-07 10:12 | CASEMGMT ---
Addendum entered by Jluis Glass 08/07/23 15:39: Nicky at [facility] calls this RN TONI and states that they will most likely be able to accept the pt but they do not have a SOC date yet. Will follow for updates. Original Note: RN CM to pt room regarding DC plan and needs. Pt daughter at bedside. Pt is A&Ox4 and is calm, resting in the chair. Pt states that he does not want to go to a SNF at DC. Pt states that the MD told him the plan is for DC tomorrow tentatively. Pt states that he would like HHC set up. The pt denies wanting to see a list of local in-network HH agencies. Pt daughter states that she works for [employer] ([facility]). Pt and pt daughter state that they would like to use [facility] for HHC needs. Page to Dr. Leong at this time and Dr. Leong states to enter HHC order in [facility]. Referral sent to [facility] via [facility] at this time, including H&P, HHC Order (SN, PT, OT), and recent progress note. Awaiting return response.
--- NOTE | 2023-08-07 15:23 | PN.HOSP_ITS ---
Reason for Visit Reason for Visit: Chest pain Subjective Subjective Patient with polymorphic VT that deteriorated into ventricular fibrillation as noted previously. Overnight he had some intermittent bigeminy but this is resolved by this morning and has had no further events. Right forearm is feeling better. He denies any tingling or numbness. Movement and hand is normal and he states he feels like his hand is less swollen and red. Currently is feeling well and would like to get out of bed. Will get his Mohr out and get him moving a little bit to see how he tolerates it. Objective Data Objective Data Vital Signs: Vital Signs Temp Pulse Resp BP Pulse Ox O2 Del Method O2 Flow Rate 97.9 F 73 16 113/86 H 94 Room Air 2 08/07/23 12:00 08/07/23 14:00 08/07/23 14:00 08/07/23 14:00 08/07/23 14:00 08/07/23 14:00 08/07/23 10:00 Oxygen Flow Rate (L/min) 2 Oxygen Delivery Method Room Air Weight: 87.2 kg Body Mass Index (BMI) 31.0 Intake & Output: Intake and Output for Last 24 Hours 08/05/23 08/06/23 08/07/23 23:59 23:59 23:59 Intake Total 1518.57 / 1518.57 198.73 / 198.73 Output Total 1600 / 1600 200 / 200 Balance -81.43 / -81.43 -1.27 / -1.27 Lab / Micro Data 08/07/23 03:15 08/07/23 03:15 Labs: Laboratory Results - last 24 hr 08/06/23 18:00: WBC 18.3 H, RBC 4.53 L, Hgb 14.0, Hct 41.4, MCV 91.4, MCH 30.9, MCHC 33.8, RDW Std Deviation 43.5, RDW Coeff of Leeann 13.2, Plt Count 182, MPV 9.7 08/07/23 03:15: WBC 17.2 H, RBC 4.25 L, Hgb 13.0, Hct 38.8 L, MCV 91.3, MCH 30.6, MCHC 33.5, RDW Std Deviation 43.9, RDW Coeff of Leeann 13.3, Plt Count 186, MPV 9.8, Immature Gran % (Auto) 0.900, Neut % (Auto) 78.3 H, Lymph % (Auto) 10.0 L, [place] % (Auto) 10.4 H, Eos % (Auto) 0.1, Baso % (Auto) 0.3, Absolute Neuts (auto) 13.5 H, Absolute Lymphs (auto) 1.71, Nucleated RBC % 0, Differential Comment SCANNED, Diff Path Review May foll, Sodium 139, Potassium 4.2, Chloride 107, Carbon Dioxide 23.0, Anion Gap 9, BUN 19 H, Creatinine 1.40 H, Estim Creat Clear Calc 48.63, Est GFR (MDRD) Af Amer 64, Est GFR (MDRD) Non-Af 53 L, BUN/Creatinine Ratio 13.6, Glucose 127 H, Calcium 9.4, Phosphorus 4.7, Magnesium 1.9, Total Bilirubin 0.80, AST 58 H, ALT 25, Alkaline Phosphatase 59, Total Protein 6.9, Albumin 3.7, Globulin 3.2, Albumin/Globulin Ratio 1.2, TSH 0.65 Rhythm Strip Rhythm Strip: Sinus Rhythm Rate: 68 Ectopy: PVC(s) (Some in a bigeminal pattern.) Physical Exam Const alert, oriented x3, no apparent distress and well nourished Constitutional Narrative: Obese, older, white male, sitting up in bed watching television, appears comfortable, nursing is at the bedside, nontoxic-appearing General Appearance: cooperative and well developed HEENT normocephalic, head/scalp atraumatic and moist oral mucous membranes Head and Scalp: normocephalic Resp normal respiratory effort, no retractions, no use of accessory muscles and clear to auscultation bilaterally Auscultation: Negative for rales, rhonchi or wheezes Cardio regular rate, regular rhythm, S1 normal heart sound, S2 normal heart sound, no murmurs, no rub, no gallops and no clicks Cardio Narrative: No ectopy GI normal to inspection, nondistended, normoactive bowel sounds, soft to palpation and non-tender Extremity no clubbing, cyanosis or edema Extremity Narrative: Right arm still with some swelling however overall much better than yesterday, sensation in hand is intact and patient can fully open and close hand Skin Skin Narrative: Significant right arm ecchymosis General Skin Exam: no breakdown and turgor normal Neuro oriented x3, moves all extremities and no focal motor deficits Speech: speech normal Psych thought process normal, cooperative and affect normal Psych Narrative: Eye contact is good, patient interacts appropriately Appearance: appropriate Assessment & Plan Assessment/Plan (1) Abnormal nuclear stress test: (2) CAD S/P percutaneous coronary angioplasty: (3) Chest pain: QUALIFIERS: Chest pain type: unspecified Qualified Code(s): R07.9 - Chest pain, unspecified (4) Cardiopulmonary arrest: (5) Ventricular tachycardia: PLAN: Plan Unstable angina -2 drug-eluting stents placed in stenotic area of RCA -Continue aspirin -Continue Plavix - isosorbide mononitrate was discontinued by cardiology -Continue metoprolol -Continue atorvastatin -Cardiology following-appreciate input CPA with ventricular tachycardia -2 minutes of CPR with ROSC -Discussed with cardiology and they felt that this was likely ischemic ventricular arrhythmia related to jailing of the acute marginal branch of the right coronary artery with a stenting procedure -Amiodarone was discontinued today by cardiology once loading dose was complete -Placed on metoprolol 50 mg p.o. twice daily -Cardiology following-appreciate input -No further events since initiating amiodarone -TSH is within normal limits Right arm hematoma status postcardiac catheterization -Related to cardiopulmonary arrest and resuscitation -Remains with no current signs of compartment syndrome and overall is improving -Continue to watch neurovascular status and right arm and hand -Every 4 hour assessment ordered and will discontinue tomorrow as long as he is stable Leukocytosis -Suspect related to yesterday's events -No signs of infection -Will continue to monitor with repeat CBC tomorrow CKD stage II -Baseline serum creatinine appears to run between 1.2 and 1.3 -Current serum creatinine is slightly elevated at 1.40 likely related to arrest yesterday -Continue to monitor Acute bronchitis -PCP recently placed patient on Levaquin -Complete antibiotic course CAD/HTN/HPL -Continue aspirin, Plavix, beta-shreya, statin -Continue home amlodipine -Cardiology following-appreciate input -See above Gout -Continue home allopurinol -Continue home colchicine GERD -Continue home famotidine -Continue home Protonix BPH with retention -Continue Flomax -Continue Proscar -Mohr in place and will remove tomorrow if medically stable Vitamin D deficiency -Continue home vitamin D supplementation Obesity -BMI is 31 -recommend weight loss -Complicates treatment, prognosis, outcomes DVT prophylaxis -Continue subcu Lovenox CODE STATUS -Full code Charges/Coding Visit Charges Inpatient E&M: 36217 Subs Hosp L2
[2023-08-07] MEDS: ALPRAZolam 0.5 MG Tablet PO (19:49)
[2023-08-07] MEDS: amLODIPine 5 MG Tablet PO (19:49)
[2023-08-07] MEDS: Allopurinol 100 MG Tablet 200 MG PO (19:49)
[2023-08-07] MEDS: Finasteride 5 MG Tablet PO (19:49)
[2023-08-07] MEDS: Pantoprazole Sodium 40 MG Tablet PO (19:50)
[2023-08-07] MEDS: Tolterodine Tartrate 4 MG CAP.SA PO (19:50)
[2023-08-07] MEDS: Atorvastatin Calcium 20 MG Tablet PO (19:50)
[2023-08-07] MEDS: Tamsulosin HCl 0.4 MG Capsule 0.400000000000000022 MG PO (19:50)
[2023-08-08] VITALS (14 sets, daily range): BP systolic 100–136; BP diastolic 53–88; PULSE 71–91; RESP 14–19; TEMP 36.6–36.8; O2SAT 94–98; BMI 34.0
[2023-08-08] MEDS: Morphine 2 MG/ML Syringe IV (00:20)
[2023-08-08] MEDS: 0.9% Saline Lock 10 ML Syringe IV (00:20)
[2023-08-08 05:23] LABS: ALB/GLOB Ratio 1.2 RATIO (0.9-2.4); AST(SGOT) 108 U/L (15-37); Alanine Aminotransfer ALT/SGPT 35 U/L (16-61); Albumin, Serum 3.8 g/dL (3.2-5.0); Alkaline Phosphatase 57 U/L (45-117); Anion Gap 4 (5-15); BUN 25 mg/dL (7-18); BUN/Creat Ratio 16.6 RATIO (10-20); Calcium,Total 9.5 mg/dL (8.5-10.1); Chloride 107 mmol/L (98-107); Creatinine, Serum 1.51 mg/dL (0.70-1.30); EST Glomerular Filtration Rate 48 mL/min (>60); Est Glom Filt Rate - Afr Amer 59 mL/min (>60); Estimated Creatinine Clearance 45.09 ml/min; Globulin 3.2 g/dL (2.2-4.2); Glucose 99 mg/dL (74-106); Potassium 3.9 mmol/L (3.5-5.1); Sodium Level 139 mmol/L (136-145)
[2023-08-08] MEDS: ALPRAZolam 0.25 MG Tablet PO (06:42)
[2023-08-08 06:55] LABS: Hematocrit 36.5 % (40-54); Hemoglobin 12.4 g/dL (13.0-16.5); Mean Corpuscular Hgb 31.9 pg (27.0-32.0); Mean Corpuscular Volume 93.8 fL (80-94); Mean Platelet Vol. 10.1 fl (6.2-12.0); Platelet Count 169 K/mm3 (150-450); RBC Distribution Width CV 13.4 % (11.6-14.6); RBC Distribution Width SD 45.6 fl (35.1-43.9); Red Blood Count 3.89 M/mm3 (4.6-6.2); White Blood Count 11.3 K/mm3 (4.4-11.0)
[2023-08-08] MEDS: Clopidogrel Bisulfate 75 MG Tablet PO (07:48)
[2023-08-08] MEDS: Famotidine 20 MG Tablet 40 MG PO (07:48)
[2023-08-08] MEDS: Metoprolol Tartrate 50 MG Tablet PO (07:48)
[2023-08-08] MEDS: levoFLOXacin 500 MG Tablet PO (07:48)
[2023-08-08] MEDS: Aspirin 81 MG TAB.CHEW PO (07:48)
[2023-08-08] MEDS: Ergocalciferol 1.25 MG (50, 000 UNIT) Capsule PO (07:49)
[2023-08-08] MEDS: Pantoprazole Sodium 40 MG Tablet PO (07:49)
[2023-08-08] MEDS: Enoxaparin 40 MG/0.4 ML Syringe SC (07:49)
--- NOTE | 2023-08-08 09:18 | PCM.PN.CARD ---
Subjective Subjective Patient seen and evaluated. Appears to be doing well today. No complaints. No arrhythmias. Has been off amiodarone Objective Data Vital Signs: Vital Signs Temp Pulse Resp BP Pulse Ox O2 Del Method O2 Flow Rate 97.9 F 85 15 136/88 H 95 Room Air 2 08/08/23 08:00 08/08/23 08:00 08/08/23 08:00 08/08/23 08:00 08/08/23 08:00 08/08/23 08:00 08/07/23 10:00 Oxygen Flow Rate (L/min) 2 Oxygen Delivery Method Room Air Weight: 210 lb 8.663 oz Body Mass Index (BMI) 34.0 Intake & Output: Intake and Output for Last 24 Hours 08/06/23 08/07/23 08/08/23 23:59 23:59 23:59 Intake Total 1518.57 / 1518.57 778.73 / 978.73 200 / 200 Output Total 1600 / 1600 200 / 200 Balance -81.43 / -81.43 578.73 / 778.73 200 / 200 Lab / Micro Data 08/08/23 04:45 08/08/23 04:45 Labs: Laboratory Results - last 24 hr 08/08/23 04:45: WBC 11.3 H, RBC 3.89 L, Hgb 12.4 L, Hct 36.5 L, MCV 93.8, MCH 31.9, MCHC 34.0, RDW Std Deviation 45.6 H, RDW Coeff of Leeann 13.4, Plt Count 169, MPV 10.1, Sodium 139, Potassium 3.9, Chloride 107, Carbon Dioxide 28.0, Anion Gap 4 L, BUN 25 H, Creatinine 1.51 H, Estim Creat Clear Calc 45.09, Est GFR (MDRD) Af Amer 59 L, Est GFR (MDRD) Non-Af 48 L, BUN/Creatinine Ratio 16.6, Glucose 99, Calcium 9.5, Total Bilirubin 0.90, AST 108 H, ALT 35, Alkaline Phosphatase 57, Total Protein 7.0, Albumin 3.8, Globulin 3.2, Albumin/Globulin Ratio 1.2 Rhythm Strip Rhythm Strip: Sinus Rhythm Rate: 68 Ectopy: PVC(s) (Some in a bigeminal pattern.) Cardiology Labs/Tests 03/13/24 04:45: WBC 11.3 H, RBC 3.89 L, Hgb 12.4 L, Hct 36.5 L, MCV 93.8, MCH 31.9, MCHC 34.0, Plt Count 169, MPV 10.1, Sodium 139, Potassium 3.9, Chloride 107, Carbon Dioxide 28.0, Anion Gap 4 L, BUN 25 H, Creatinine 1.51 H, Est GFR (MDRD) Af Amer 59 L, Est GFR (MDRD) Non-Af 48 L, BUN/Creatinine Ratio 16.6, Glucose 99, Calcium 9.5, Total Bilirubin 0.90 Rhythm: EKG: ECHO: Stress Test: Cardiac Cath: PCI: CT Surgery: Holter monitor: EPS: PPM: CXR: Chest CT Scan: Physical Exam Const alert, oriented x3 and no apparent distress General Appearance: cooperative HEENT hearing grossly normal bilaterally Head and Scalp: atraumatic Eyes EOMs intact bilaterally Neck General: normal visual inspection Chest inspection of chest normal and palpation of chest normal Resp normal respiratory effort Auscultation: clear to auscultation bilaterally Cardio regular rate, regular rhythm, S1 normal heart sound and S2 normal heart sound Jugular Venous Distention: JVD GI normal to inspection, nondistended, normoactive bowel sounds Extremity normal capillary refill and no pedal edema Peripheral Pulses: Yes pulses 2+ throughout and femoral pulses present Skin no rashes or lesions noted Neuro oriented x3 and CN's II-XII intact bilaterally Psych Appearance: grossly normal and appropriate Assessment & Plan Assessment/Plan (1) Ventricular tachycardia: PLAN: Patient had developed ventricular tachycardia which was probably ischemic in etiology from either the jailing of the right ventricular marginal branch all slow distal flow. Has now been off IV amiodarone. Doing better on p.o. Lopressor. No VT in the last 36 hours. Patient can be discharged for outpatient follow-up. Above discussed with patient, nursing, and hospitalist. Follow-up with the heart group. (2) CAD S/P percutaneous coronary angioplasty: PLAN: The patient should stay on his dual antiplatelet therapy uninterrupted for 1 year. Secondary risk factors are being managed as well. He will continue on the rosuvastatin and beta-shreya therapy. The patient be ambulated in the halls today and as long as he pains good vital signs and no significant ectopy he should be able to be discharged to home today
--- NOTE | 2023-08-08 09:46 | CASEMGMT ---
Dr. Leong states the plan is to DC the pt today. This RN CM sent e-mail to Nicky at [facility] for SOC date. Awaiting response.
--- NOTE | 2023-08-08 10:00 | EKG12_ITS ---
Test Reason : AM EKG Blood Pressure : / mmHG Vent. Rate : 080 BPM Atrial Rate : 080 BPM P-R Int : 134 ms QRS Dur : 108 ms QT Int : 400 ms P-R-T Axes : 070 -53 060 degrees QTc Int : 461 ms Normal sinus rhythm Left anterior fascicular block Inferior infarct , age undetermined Abnormal ECG When compared with ECG of 07-AUG-2023 04:39, MANUAL COMPARISON REQUIRED, DATA IS UNCONFIRMED Confirmed by RAGINI NAZARIO, JAMES ([id number]), industrial editor ROBERTO RAHMAN ([id number]) on 08/09/2023 6:28:53 AM Referred By: JORGE LUIS Confirmed By:JAMES EID MD
--- NOTE | 2023-08-08 10:02 | CASEMGMT ---
[facility] calls this RN TONI at this time and states they can accept the pt with SOC or Sunday. [facility] states they can have a SN see the pt / but will not be able to have PT/OT see until next week. DC plan updated. RICHARD MUÑOZ to pt room at this time and pt updated with this POC. Pt states that he is agreeable and states that he still feels safe and comfortable discharging home with this HHC plan in place. Pt denies further questions or concerns.
--- NOTE | 2023-08-08 10:35 | PCM.DC.SUM ---
Providers Date of Admission: 08/03/23 Date of Discharge: 08/08/23 Primary Care Physician: Dr. Herb Wolf, Consultations 08/03/23 20:40 Consult: Cardiology Routine Consulting Provider: Tyrone Rodriguez Reason for Consult: unstable angina EMERGENT Consult: No MD Notified: Yes Date Notified: 08/03/23 Time Notified: 18:41 Method of Notification: Text Reason For Visit: UNSTABLE ANGINA Diagnosis Discharge Diagnosis (1) Ventricular tachycardia: Status: Acute Code(s): I47.20 - Ventricular tachycardia, unspecified (2) CAD S/P percutaneous coronary angioplasty: Status: Acute Code(s): I25.10 - Atherosclerotic heart disease of [place] coronary artery without angina pectoris; Z98.61 - Coronary angioplasty status Medications at Discharge Home Medications allopurinol 100 mg tablet 200 mg PO QHS gout 11/07/20 aspirin 81 mg chewable tablet 81 mg PO DAILY thinner 11/07/20 cholecalciferol (vitamin D3) 125 mcg (5,000 unit) tablet 50,000 unit PO WE supplement 11/07/20 colchicine 0.6 mg tablet (Colcrys) 0.6 mg PO PRN gout 11/07/20 finasteride 5 mg tablet 5 mg PO QHS urine retention 11/07/20 tamsulosin 0.4 mg capsule 0.4 mg PO QHS urinary retention 11/07/20 alprazolam 0.5 mg tablet (Xanax) 0.25 mg PO .COMPLEX anxiety 11/09/20 nitroglycerin 0.4 mg sublingual tablet 0.4 mg sublingual Q5M PRN Cardiac/Chest Pain #0 tabs 11/09/20 acetaminophen 500 mg tablet 1,000 mg (2 x 500 mg) PO Q6H PRN PRN Pain Score 1-3 #0 tabs 11/15/20 pantoprazole 40 mg tablet,delayed release 40 mg PO BID indigestion 01/11/23 famotidine 40 mg tablet 40 mg PO BID 06/14/23 ondansetron 4 mg disintegrating tablet 4 mg PO Q8-12H PRN nausea 06/14/23 rosuvastatin 10 mg tablet 10 mg PO QHS 06/14/23 amlodipine 5 mg tablet 5 mg PO QHS 08/03/23 oxybutynin chloride 10 mg tablet,extended release 24 hr 10 mg PO QHS 08/03/23 clopidogrel 75 mg tablet 75 mg PO DAILY #30 tabs 08/08/23 metoprolol tartrate 50 mg tablet 50 mg PO BID #60 tabs 08/08/23 Hospital Course Operations None Procedures Cardiac catheterization, CPR performed, EKG and - (Chest x-ray) Summary of Care Provided Minutes Spent on Discharge: 38 Hospital Course: Mr. Owens is a 73-year-old white male who presented to the emergency department [facility] on 08/03/2023 with a chief complaint of chest pain. 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 He denied any lightheadedness or dizziness but did admit to headache on presentation. He had no shortness of breath, nausea, or vomiting. He had a stress test that was done on 07/26/2023 which showed mild to moderate yvette-infarct ischemia and no acute ischemic changes. His vital signs on presentation were unremarkable and he was satting 93% on 2 L nasal cannula. His CBC was overall unremarkable and his BMP was overall unremarkable. His initial and delta troponin were both unremarkable. EKG showed PVCs but no acute ST-T wave changes and he was admitted for unstable angina. Cardiology was consulted and recommended cardiac catheterization during this admission. Adjustments were made in his antihypertensive regimen. He was taken to the [facility] on 08/06/2023 at which time he was found to have high-grade right coronary artery lesion with in-stent stenosis and a patent stent in the LAD with a circumflex having left to right collaterals. He was referred for immediate PCI and 2 stents were placed in the RCA. Of note, a small ostial vessel was obstructed while reopening the right coronary artery due to his stenosis. Procedure was completed and he was transferred to the ICU. Unfortunately, he developed unstable ventricular tachycardia that d deteriorated into ventricular fibrillation and a CODE BLUE was called. He got about 2 minutes of CPR and was defibrillated with return to sinus tachycardia and then eventually sinus rhythm. Cardiology was at the bedside and instituted into arrhythmia with amiodarone. He received 1 bag of amiodarone and then was transitioned to oral metoprolol. He was started on Plavix 75 mg daily and maintained on his home rosuvastatin and aspirin. He did suffer from a right forearm hematoma related to his cardiac catheterization as he was still just off the Integrilin when the CODE BLUE was called. He has significant ecchymosis and swelling in his right hand however neurovascular checks have been stable and his hand is functioning without any issues. We did discuss that the bruising would take time to heal and he voiced understanding as did his . He was monitored on Telemetry and had no further arrhythmias for 36 hours after his above event. Cardiology evaluated him and felt he was stable for discharge. Patient was overall feeling quite well. He was seen by physical and Occupational Therapy and they did recommend some ongoing home health at discharge which was established for him prior to discharge. He was discharged in stable condition on 08/08/2023. Prescriptions for his increased metoprolol dose and Plavix were written for and we have a follow-up with cardiology on 08/16/2023. I have also asked him to follow-up with his primary care physician within the next 1 to 2 weeks. Discharge diagnoses: Unstable angina-resolved CPA secondary to ventricular tachycardia/ventricular fibrillation Right arm hematoma Leukocytosis-resolved CKD stage II Acute bronchitis-resolved and antibiotic course completed CAD HTN HPL Gout GERD BPH with retention Vitamin D deficiency Obesity History of TBI Physical Exam Const alert, oriented x3, no apparent distress, no limitations and well nourished; Negative for average body habitus Constitutional Narrative: Obese, older, white male, sitting up in chair at the bedside, appears comfortable, nursing is at the bedside, nontoxic-appearing General Appearance: cooperative, comfortable, well kempt and well developed Orientation / Consciousness: awake, oriented to person, oriented to place and oriented to time Exam Limitations: no limitations Nutritional Appearance: obese HEENT normocephalic, head/scalp atraumatic and moist oral mucous membranes HEENT Narrative: Mild to moderate hearing loss, Mallampati is 2, no thrush Eyes PERRL and EOMs intact bilaterally Eyes Narrative: No scleral icterus Neck no lymphadenopathy and supple Neck Narrative: Trachea midline, no thyroid enlargement Resp normal respiratory effort, normal air movement, no retractions, no use of accessory muscles and clear to auscultation bilaterally Auscultation: Negative for rales, rhonchi or wheezes Cardio regular rate, regular rhythm, S1 normal heart sound, S2 normal heart sound, no murmurs, no rub, no gallops and no clicks GI normal to inspection, nondistended, normoactive bowel sounds, soft to palpation and non-tender Extremity normal capillary refill, no clubbing, cyanosis or edema and no calf tenderness Extremity Narrative: Right arm still with a bit of swelling but overall much softer and hand is completely functional without any tingling or numbness General Extremity: no tenderness to palpation of joints or extremities Skin No no rashes or lesions noted, no wounds, skin turgor normal and no jaundice Skin Narrative: Significant right arm ecchymosis General Skin Exam: no breakdown and turgor normal Neuro oriented x3, CN's II-XII intact bilaterally, moves all extremities, no focal motor deficits and no sensory deficits noted Speech: speech normal Psych thought process normal, cooperative and affect normal Psych Narrative: Eye contact is good, patient interacts appropriately Appearance: appropriate Weight / BMI Weight Weight: 95.5 kg Body Mass Index (BMI) 34.0 ABG / Lab / Microbiology Data 08/08/23 04:45 08/08/23 04:45 Laboratory: Laboratory Results - last 24 hr 08/08/23 04:45: WBC 11.3 H, RBC 3.89 L, Hgb 12.4 L, Hct 36.5 L, MCV 93.8, MCH 31.9, MCHC 34.0, RDW Std Deviation 45.6 H, RDW Coeff of Leeann 13.4, Plt Count 169, MPV 10.1, Sodium 139, Potassium 3.9, Chloride 107, Carbon Dioxide 28.0, Anion Gap 4 L, BUN 25 H, Creatinine 1.51 H, Estim Creat Clear Calc 45.09, Est GFR (MDRD) Af Amer 59 L, Est GFR (MDRD) Non-Af 48 L, BUN/Creatinine Ratio 16.6, Glucose 99, Calcium 9.5, Total Bilirubin 0.90, AST 108 H, ALT 35, Alkaline Phosphatase 57, Total Protein 7.0, Albumin 3.8, Globulin 3.2, Albumin/Globulin Ratio 1.2 D/C Instructions Discharge Diet: Low fat / Low cholesterol Discharge Activity: - (Do not lift anything greater than 5 pounds with the right hand for the next 3 to 5 days) Meaningful Use Info Meaningful Use Diagnoses (Choose all that apply): None applicable Discharge Plan Admission Admit Date/Time: 08/03/23 18:39 Primary Reason for Your Visit: Chest pain Attending Provider: Melly Leong Primary Care Provider: Herb Wolf Consulting Providers: Tyrone Rodriguez; Mechelle Marquez; Fabio Tovar Discharge Orders/Prescriptions Prescriptions: New clopidogrel 75 mg Tablet 75 mg PO DAILY Qty: 30 11RF metoprolol tartrate 50 mg Tablet 50 mg PO BID Qty: 60 0RF Continued ondansetron 4 mg tablet,disintegrating 4 mg PO Q8-12H PRN (Reason: nausea) famotidine 40 mg tablet 40 mg PO BID rosuvastatin 10 mg tablet 10 mg PO QHS allopurinol 100 mg Tablet 200 mg PO QHS tamsulosin 0.4 mg Capsule 0.4 mg PO QHS aspirin 81 mg Tablet,Chewable 81 mg PO DAILY colchicine [Colcrys] 0.6 mg Tablet 0.6 mg PO PRN finasteride 5 mg Tablet 5 mg PO QHS cholecalciferol (vitamin D3) 125 mcg (5,000 unit) Tablet 50,000 unit PO WE nitroglycerin 0.4 mg Tablet, Sublingual 0.4 mg sublingual Q5M PRN (Reason: Cardiac/Chest Pain) Qty: 0 0RF alprazolam [Xanax] 0.5 mg tablet 0.25 mg PO .COMPLEX Rx Instructions: 0.25 mg orally morning and afternoon; 0.5 mg orally qhs acetaminophen 500 mg Tablet 1,000 mg PO Q6H PRN PRN (Reason: Pain Score 1-3) Qty: 0 0RF pantoprazole 40 mg tablet,delayed release (DR/EC) 40 mg PO BID oxybutynin chloride 10 mg tablet extended release 24hr 10 mg PO QHS Patient Comments: TAKE 1 TABLET BY MOUTH ONCE DAILY amlodipine 5 mg tablet 5 mg PO QHS Discontinued levofloxacin 500 mg tablet 500 mg PO Q24H Patient Comments: First dose taken this am 3/8 metoprolol tartrate 25 mg tablet 25 mg PO BID Qty: 180 3RF Referrals / Follow Up: Herb Wolf DO [Primary Care Provider] - Within 2 Weeks Sebastian Diallo NP, EXPERIENCE SPECIALIST-C [Med Staff - [facility]] - 08/16/23 10:00 am Disposition Disposition (needs filled in before D/C Order can be placed): Home Health Service Charges/Coding Visit Charges Inpatient E&M: 89326 Disch Hosp >30min
--- NOTE | 2023-08-08 12:03 | CON.PCM_ITS ---
HPI Consult Data Date of Consult: 08/08/23 HPI Narrative HPI Narrative: SEBASTIEN BARON, is a 73 M who presents [facility] Medical History (Updated 08/06/23 @ 18:[address] Melly Leong DO) Alcoholism Anemia Anxiety Atherosclerosis of coronary artery without angina pectoris Back pain BiPAP (biphasic positive airway pressure) dependence Chronic pain Coronary artery disease Dementia Depression Essential (primary) hypertension GI hemorrhage Gout History of stress test Hyperlipidemia Hypertension Myocardial infarct Non-smoker NSTEMI (non-ST elevated myocardial infarction) (04/13/18) Obesity Pancreatitis Pulmonary embolism Rheumatoid arthritis Sleep apnea Traumatic brain injury Unstable angina Home Medications allopurinol 100 mg tablet 200 mg PO QHS gout 11/07/20 [History Last Taken 08/02/23] aspirin 81 mg chewable tablet 81 mg PO DAILY thinner 11/07/20 [History Last Taken 08/03/23] cholecalciferol (vitamin D3) 125 mcg (5,000 unit) tablet 50,000 unit PO WE supp lement 11/07/20 [History Last Taken 08/01/23] colchicine 0.6 mg tablet (Colcrys) 0.6 mg PO PRN gout 11/07/20 [History Last Taken Unknown] finasteride 5 mg tablet 5 mg PO QHS urine retention 11/07/20 [History Last Taken 08/02/23] tamsulosin 0.4 mg capsule 0.4 mg PO QHS urinary retention 11/07/20 [History Last Taken 08/02/23] alprazolam 0.5 mg tablet (Xanax) 0.25 mg PO .COMPLEX anxiety 11/09/20 [History Last Taken 08/03/23 09:00] nitroglycerin 0.4 mg sublingual tablet 0.4 mg sublingual Q5M PRN Cardiac/Chest Pain #0 tabs 11/09/20 [Rx Last Taken Unknown] acetaminophen 500 mg tablet 1,000 mg (2 x 500 mg) PO Q6H PRN PRN Pain Score 1-3 #0 tabs 11/15/20 [Rx Last Taken Unknown] pantoprazole 40 mg tablet,delayed release 40 mg PO BID indigestion 01/11/23 [History Last Taken 08/03/23 10:00] famotidine 40 mg tablet 40 mg PO BID 06/14/23 [History Last Taken 08/03/23 10:00] ondansetron 4 mg disintegrating tablet 4 mg PO Q8-12H PRN nausea 06/14/23 [History Last Taken 08/03/23] rosuvastatin 10 mg tablet 10 mg PO QHS 06/14/23 [History Last Taken 08/02/23] amlodipine 5 mg tablet 5 mg PO QHS 08/03/23 [History Last Taken 08/02/23] oxybutynin chloride 10 mg tablet,extended release 24 hr 10 mg PO QHS 08/03/23 [History Last Taken 08/02/23] clopidogrel 75 mg tablet 75 mg PO DAILY #30 tabs 08/08/23 [Rx Last Taken Unknown] metoprolol tartrate 50 mg tablet 50 mg PO BID #60 tabs 08/08/23 [Rx Last Taken Unknown] Allergy/AdvReac Type Severity Reaction Status Date / Time isosorbide AdvReac Mild Headache Verified 08/03/23 14:46 Family History Mother CAD (coronary artery disease) Surgical History (Updated 08/07/23 @ 08:31 by Gaby Abreu) History of coronary artery stent placement (08/06/23) History of knee surgery History of repair of rotator cuff Hx of cholecystectomy Social History household members: spouse Smoking Status: Never smoker alcohol intake: former details: Sober since 2010. substance use type: does not use ROS ROS Narrative And then review of systems This is a test Physical Exam General Weight: 210 lb 8.663 oz Lab / Micro Data 08/08/23 04:45 08/08/23 04:45 Labs: Laboratory Results - last 24 hr 08/08/23 04:45: WBC 11.3 H, RBC 3.89 L, Hgb 12.4 L, Hct 36.5 L, MCV 93.8, MCH 31.9, MCHC 34.0, RDW Std Deviation 45.6 H, RDW Coeff of Leeann 13.4, Plt Count 169, MPV 10.1, Sodium 139, Potassium 3.9, Chloride 107, Carbon Dioxide 28.0, Anion Gap 4 L, BUN 25 H, Creatinine 1.51 H, Estim Creat Clear Calc 45.09, Est GFR (MDRD) Af Amer 59 L, Est GFR (MDRD) Non-Af 48 L, BUN/Creatinine Ratio 16.6, Glucose 99, Calcium 9.5, Total Bilirubin 0.90, AST 108 H, ALT 35, Alkaline Phosphatase 57, Total Protein 7.0, Albumin 3.8, Globulin 3.2, Albumin/Globulin Ratio 1.2 Rhythm Strip Rhythm Strip: Sinus Rhythm Rate: 68 Ectopy: PVC(s) (Some in a bigeminal pattern.)
[2023-08-09 09:41] LABS: Pathologist Review Reviewed
--- NOTE | 2023-08-14 14:25 | CL.I_ITS ---
Patient Name: SEBASTIEN BARON Study Date: 08/06/2023 Performing: Faby Salcedo MD Ht: 66 inches 167.64 cm : 1950 Wt: 190.9 lbs 86.5 kg Age: 73 Gender: male BSA: 1.96 PROCEDURE(S) PERFORMED IC12-(48826/C9600)JOSE ANGEL W/WO PTCA, SINGLE CORONARY ARTERY CLINICAL PROFILE AND CO-MORBIDITIES Indications: Suspected CAD Heart Failure: None Stress/Imaging Date: 07/21/23 Stress Test with SPECT MPI: Positive Low Risk CAD Presentations: Stable angina. CONCLUSIONS Successful JOSE ANGEL to mRCA RECOMMENDATIONS DESCRIPTION OF PROCEDURE The patient arrived to the procedure lab. The risks and benefits of the procedure as well as a full description of our services here and current unavailability of surgical backup were fully explained to the patient and/or their significant other prior to the catheterization. The Timeout was completed, verifying the correct patient and procedure. The patient's procedural site was prepped and draped in the usual fashion. Local anesthetic was given subcutaneously to right radial region with Lidocaine 2% Using a modified Seldinger technique,arterial access was obtained via the Right Ulnar artery a 6Fr sheath was inserted by Dr Salcedo Left Coronary Artery selective angiography was performed in multiple views using a 6 Fr. 4.0 [place] catheter. Right Coronary Artery selective angiography was then performed in multiple views using a 5 Fr. 4.0 [place] catheter.The images were reviewed and options discussed. A decision was then made to proceed with an Intervention, IVUS or other adjunct procedure. JR 4 Guide catheter was inserted and engaged into the RCA. BMW Guide wire was advanced to the RCA. Emerge 2x15 Balloon catheter was inserted. Balloon catheter was advanced across lesion in the right coronary, mid. PTCA balloon inflated at 12 atms for 25 secs. Angiogram performed post balloon dilatation. 3x38 [place] Drug Eluting stent was inserted. Drug Eluting stent was advanced across the lesion in the right coronary, mid. Angiogram performed post stent deployment. 3.5x38 [place] Drug Eluting stent was inserted. Drug Eluting stent was advanced across the lesion in the right coronary, mid. 3.5x15 [place] Balloon catheter was inserted. Balloon catheter was inserted post stent. Angiogram performed post stent deployment. The arterial sheath was pulled and a TR Band was applied for hemostasis 10cc of air INTERVENTION INFORMATION LESION SITE: RCA (Mid) Lesion Complexity: High/C, chronic total occlusion: No, lesion at bifurcation: Yes, thrombus present: No, lesion length: 60 mm, culprit lesion: Yes, Previously treated lesion: Yes, Timeframe of previous treatment: Time unknown, Previously treated with a stent: Yes Stent Type: with stent type unknown, In-stent Thrombosis: No, In-stent restenosis: Yes Pre Stenosis: 99 % Pre intervention DIANNE flow: 2 PROCEDURE: Drug Eluting Stent with pre and post dilatation There was a small RV marginal branch with ostial stenosis at the site of the 99% stenosis in the RCA. This branch was already jailed by the previous stent. This vessel was very small in diameter and we did not place a wire in it prior to PTCA and stent placement to the RCA as we felt that it was too small for even balloon angioplasty.This vessel got occluded after the stent placement in the mid RCA. We tried to cross the stent struts and into this vessel but were unsuccessful. Patient was having some chest pain at the end of the procedure which improved with nitroglycerin. He was then transferred to the CCU for monitoring. Post Stenosis: 0 % Post intervention DIANNE flow: 3 Lesion Devices: Cordis 6 Fr JR4 100cm Guide Catheter Staples .014 190cm BMW Hensel Straight Cory Sci EMERGE MR 2.00x15 BALLOON Medtronic 3.0 x 38 JED FRONTIER JOSE ANGEL Medtronic 3.5 x 38 JED FRONTIER JOSE ANGEL Medtronic NC EUPHORA RX 3.5x15 BALLOON COMPLICATIONS No Complications PROCEDURE MEDICATIONS Fentanyl 50 mcg IV Versed 1 mg IV Fentanyl 50 mcg IV Versed 1 mg IV Versed 1 mg IV Oxygen: 2 L/min via nasal cannula Heparin given IA 08/06/2023 10:35:05 Heparin 4000 unit(s) IV 08/06/2023 10:45:12 Nitro glycerin 25mg / 250ml D5W @ 10 mcg/min IV started 08/06/2023 11:16:41 Verapamil 2.5mg, Ntg 100mcgs, 3000 units of Heparin given IA 08/06/2023 10:35:05 SUMMARY OF HEMODYNAMIC DATA Time AIR REST ECG 09:51:37 AO 98/64 (77) SA 10:37:15 LV 111/0, 2 10:46:57 LV 120/-3, 5 10:47:03 LVp 134/-2, 12 10:47:14 AOp 134/72 (97) 10:47:19 AO 128/60 (84) 10:47:37 AIR REST 10:47:49 Signed By Faby Salcedo MD On 08/07/2023 16:55:21 Faby Salcedo MD
== END 2023-08-08 12:30 | disposition home health service (06) | DRG 321 ==
LOC: ED 15:31 → PCU 19:11 → ICU 08-06 11:51
PROVIDERS: Internal Medicine; Internal Medicine Cardiovascular Disease; Specialist; Admitting Provider Student in an Organized Health Care Education/Training Program; Emergency Provider Emergency Medicine; PCP Family Medicine; Visit Provider Internal Medicine
DX: I25.110 Atherosclerotic heart disease of native coronary artery with unstable angina pectoris (principal); I49.01 Ventricular fibrillation; I46.2 Cardiac arrest due to underlying cardiac condition; I24.89 Other forms of acute ischemic heart disease; I47.20 Ventricular tachycardia, unspecified; T82.855A Stenosis of coronary artery stent, initial encounter; L76.32 Postprocedural hematoma of skin and subcutaneous tissue following other procedure; N13.8 Other obstructive and reflux uropathy; F03.90 Unspecified dementia, unspecified severity, without behavioral disturbance, psychotic disturbance, mood disturbance, and anxiety; I12.9 Hypertensive chronic kidney disease with stage 1 through stage 4 chronic kidney disease, or unspecified chronic kidney disease; E55.9 Vitamin D deficiency, unspecified; K21.9 Gastro-esophageal reflux disease without esophagitis; M10.9 Gout, unspecified; E78.2 Mixed hyperlipidemia; J20.9 Acute bronchitis, unspecified; N18.2 Chronic kidney disease, stage 2 (mild); D72.829 Elevated white blood cell count, unspecified; Z68.34 Body mass index [BMI] 34.0-34.9, adult; I49.3 Ventricular premature depolarization; Z79.82 Long term (current) use of aspirin; E66.9 Obesity, unspecified; N40.1 Benign prostatic hyperplasia with lower urinary tract symptoms; Z79.02 Long term (current) use of antithrombotics/antiplatelets; Z79.899 Other long term (current) drug therapy; R94.39 Abnormal result of other cardiovascular function study; Y84.0 Cardiac catheterization as the cause of abnormal reaction of the patient, or of later complication, without mention of misadventure at the time of the procedure; R33.8 Other retention of urine
CPT/HCPCS: 36415; 71045; 80048; 80053; 83690; 83735; 84100; 84443; 84484; 85025; 85027; 85610; 85730; 92928; 92950; 93005; 93454; 99152; 99153; 99285; J7030; J7040; A4216; C1725; C1769; C1874; C1887; C1894; C9600; J1327; J2405; Q9967

== ENCOUNTER → 2023-08-03 | Outpatient (CLI) | payer MEDICARE, SELFPAY ==
[2020-01-05 11:37] VITALS: BMI 34.5
--- NOTE | 2023-08-03 09:50 | RAD_ITS ---
STUDY: X-RAY CHEST REASON FOR EXAM: Male, 73 years old. Abnormal stress test. TECHNIQUE: Frontal and lateral views of the chest. COMPARISON: 01/11/2023 FINDINGS: Stable mild hyperinflation and granulomatous changes with scarring and pleural thickening in the left apex. No other pleural abnormality noted. Mild cardiomegaly unchanged. Normal mediastinum and radhames. Normal visualized pulmonary arteries. Stable aortic tortuosity. Normal visualized thoracic spine. Normal visualized ribs, clavicles, and shoulders. No abnormality of the visualized soft tissue structures of the upper abdomen. RAD/Chest PA and Lateral IMPRESSION: Stable chest. No acute or active cardiopulmonary disease. Electronically Signed: Josue Garcia MD at 13:29 EST ,
[2023-08-03 10:31] LABS: Absolute Lymphocyte Count 1.84 X10^3/uL (0.83-4.51); Absolute Neutrophil Count 4.8 X10^3/uL (2.0-7.7); Basophil# 0.06 X10^3/uL; Basophil% 0.8 % (0-1); Eosinophil# 0.15 X10^3/uL; Eosinophils% 1.9 % (0-5); Hematocrit 41.9 % (40-54); Hemoglobin 13.4 g/dL (13.0-16.5); Lymphocyte # 1.84 X10^3/ul (0.83-4.51); Lymphocyte % 23.8 % (19-41); Mean Corpuscular Hgb 30.6 pg (27.0-32.0); Mean Corpuscular Volume 95.7 fL (80-94); Monocyte# 0.73 X10^3/uL; Monocyte% 9.4 % (0-10); NRBC Flagged by Analyzer 0 % (0-5); Neutrophil # 4.82 X10^3/uL (2.7-7.7); Neutrophil % 62.4 % (47-70); Platelet Count 181 K/mm3 (150-450); RBC Distribution Width CV 13.1 % (11.6-14.6); RBC Distribution Width SD 45.4 fl (35.1-43.9); Red Blood Count 4.38 M/mm3 (4.6-6.2); White Blood Count 7.7 K/mm3 (4.4-11.0)
[2023-08-03 11:03] LABS: Anion Gap 4 (5-15); BUN 20 mg/dL (7-18); BUN/Creat Ratio 15.2 RATIO (10-20); Calcium,Total 9.5 mg/dL (8.5-10.1); Chloride 112 mmol/L (98-107); Creatinine, Serum 1.32 mg/dL (0.70-1.30); EST Glomerular Filtration Rate 57 mL/min (>60); Est Glom Filt Rate - Afr Amer 68 mL/min (>60); Glucose 99 mg/dL (74-106); Potassium 4.8 mmol/L (3.5-5.1); Sodium Level 141 mmol/L (136-145)
== END | disposition home or self-care (01) ==
LOC: CLSP 01-22 08:34
PROVIDERS: Nurse Practitioner Gerontology; PCP Family Medicine; Referring Provider Internal Medicine Cardiovascular Disease; Visit Provider Internal Medicine Cardiovascular Disease
DX: R94.39 Abnormal result of other cardiovascular function study (principal); R06.09 Other forms of dyspnea; R53.83 Other fatigue; I25.10 Atherosclerotic heart disease of native coronary artery without angina pectoris
CPT/HCPCS: 36415; 71046; 80048; 85025

== ENCOUNTER 2023-08-23 10:31 | Inpatient (IN) | payer MEDICARE, SELFPAY ==
[2020-01-05 11:37] VITALS: BMI 34.5
[2023-08-23] VITALS (7 sets, daily range): BP systolic 119–147; BP diastolic 65–104; PULSE 33–60; RESP 12–23; TEMP 36.1–36.8; O2SAT 98–100; BMI 30.4
--- NOTE | 2023-08-23 10:38 | EKG12_ITS ---
Test Reason : SELVIN Blood Pressure : / mmHG Vent. Rate : 070 BPM Atrial Rate : 070 BPM P-R Int : 132 ms QRS Dur : 098 ms QT Int : 438 ms P-R-T Axes : 059 -37 013 degrees QTc Int : 473 ms Sinus rhythm with frequent Premature ventricular complexes Left axis deviation Abnormal ECG Confirmed by RAGINI NAZARIO, JAMES ([id number]), subeditor VANESSA DUQUE ([id number]) on 08/27/2023 10:59:45 AM Referred By: Confirmed By:JAMES EID MD
--- NOTE | 2023-08-23 10:51 | EKG12_ITS ---
Test Reason : REPEAT Blood Pressure : / mmHG Vent. Rate : 054 BPM Atrial Rate : 054 BPM P-R Int : 144 ms QRS Dur : 080 ms QT Int : 450 ms P-R-T Axes : 029 -35 027 degrees QTc Int : 426 ms Sinus bradycardia Left axis deviation Junctional ST depression, probably normal Abnormal ECG Confirmed by RAGINI NAZARIO, JAMES ([id number]), editor in chief VANESSA DUQUE ([id number]) on 08/27/2023 6:07:20 AM Referred By: Confirmed By:JAMES EID MD
--- NOTE | 2023-08-23 10:52 | EX.ED.DYSGE1 ---
HPI History of Present Illness Chief Complaint: Chest Other Detail of Chief Complaint: Bradycardia Informant: patient Narrative Narrative: Patient presents to the emergency department complaint of bradycardia. Patient states that he had a visiting nurse come by and she noted that he had heart rate in the 30s and at times into the 50s. Patient did describe some lightheadedness with getting up this morning but no syncope. He denies chest pain. Patient states that he had 2 stents placed about 2 weeks ago. Patient with history of coronary artery disease as well as hypertension [facility] Medical History Abnormal nuclear stress test Alcoholism Anemia Anxiety Atherosclerosis of coronary artery without angina pectoris Back pain BiPAP (biphasic positive airway pressure) dependence BPH (benign prostatic hyperplasia) CAD S/P percutaneous coronary angioplasty Cardiopulmonary arrest Chronic pain Coronary artery disease Dementia Depression Essential (primary) hypertension GI hemorrhage Gout History of stress test Hyperlipidemia Multifocal PVCs with pairing Myocardial infarct Non-smoker NSTEMI (non-ST elevated myocardial infarction) (04/13/18) Obesity Osteoarthritis of right knee Pancreatitis Pulmonary embolism Rheumatoid arthritis Sleep apnea Traumatic brain injury Unstable angina Ventricular tachycardia Home Medications allopurinol 100 mg tablet 200 mg PO QHS gout 11/07/20 [History Last Taken 08/02/23] aspirin 81 mg chewable tablet 81 mg PO DAILY thinner 11/07/20 [History Last Taken 08/03/23] finasteride 5 mg tablet 5 mg PO QHS urine retention 11/07/20 [History Last Taken 08/02/23] tamsulosin 0.4 mg capsule 0.4 mg PO QHS urinary retention 11/07/20 [History Last Taken 08/02/23] alprazolam 0.5 mg tablet (Xanax) 0.25 mg PO .COMPLEX anxiety 11/09/20 [History Last Taken 08/03/23 09:00] nitroglycerin 0.4 mg sublingual tablet 0.4 mg sublingual Q5M PRN Cardiac/Chest Pain #0 tabs 11/09/20 [Rx Last Taken Unknown] acetaminophen 500 mg tablet 1,000 mg (2 x 500 mg) PO Q6H PRN PRN Pain Score 1-3 #0 tabs 11/15/20 [Rx Last Taken Unknown] pantoprazole 40 mg tablet,delayed release 40 mg PO BID indigestion 01/11/23 [History Last Taken 08/03/23 10:00] famotidine 40 mg tablet 40 mg PO BID 06/14/23 [History Last Taken 08/03/23 10:00] ondansetron 4 mg disintegrating tablet 4 mg PO Q8-12H PRN nausea 06/14/23 [History Last Taken 08/03/23] rosuvastatin 10 mg tablet 10 mg PO QHS 06/14/23 [History Last Taken 08/02/23] amlodipine 5 mg tablet 5 mg PO QHS 08/03/23 [History Last Taken 08/02/23] clopidogrel 75 mg tablet 75 mg PO DAILY #30 tabs 08/08/23 [Rx Last Taken Unknown] cholecalciferol (vitamin D3) 1,250 mcg (50,000 unit) capsule 1,250 mcg PO QWEEK 08/21/23 [History Last Taken Unknown] metoprolol tartrate 50 mg tablet 25 mg PO BID 08/23/23 [History Last Taken Unknown] Allergy/AdvReac Type Severity Reaction Status Date / Time tramadol Allergy Severe anxiety Verified 08/23/23 10:33 mold Allergy Unknown unknown Verified 08/23/23 10:33 isosorbide AdvReac Mild Headache Verified 08/23/23 10:33 Family History Mother CAD (coronary artery disease) Surgical History History of coronary artery stent placement (08/06/23) History of knee surgery History of repair of rotator cuff Hx of cholecystectomy Social History household members: spouse Smoking Status: Never smoker alcohol intake: former details: Sober since 2010. substance use type: does not use ROS ROS ED ROS Narrative Lightheadedness Review of Systems ROS Unobtainable: other Constitutional Constitutional ED: Reports lethargy; Denies chills, fever(s), sweats or weight loss Eyes Eyes: Denies blurry vision, change in vision or diplopia ENT ENT ED: Denies rhinorrhea or sore throat Cardiovascular Cardiovascular: Denies chest pain, orthopnea or racing heartbeat Respiratory/Chest Respiratory/Chest: Reports dyspnea and dyspnea on exertion; Denies cough, orthopnea or sputum Gastrointestinal Gastrointestinal: Denies abdominal pain, diarrhea, nausea or vomiting Genitourinary Genitourinary ED: Denies dysuria, hematuria or urinary frequency Musculoskeletal Musculoskeletal: Denies arthralgias, back pain, myalgias or neck pain Integumentary Denies abscess, Abrasions or rash Neurologic Neurologic: Denies headache(s) or weakness Psychiatric Psychiatric: Denies anxiety, depression or suicidal thoughts Endocrine Endocrinology: Denies polydipsia, polyphagia or polyuria Hematologic/Lymphatic Hematologic/Lymphatic: Denies easy bleeding, easy bruising or lymphadenopathy Allergic/Immunologic Allergic/Immunologic ED: Denies mouth swelling, tongue swelling or urticaria EXAM Physical Exam Const Vital Signs: 08/23/23 10:34 08/23/23 10:33 08/23/23 10:41 Temperature 97.1 F L Temperature Source Temporal Pulse Rate 33 L 59 L Respiratory Rate 12 23 H Respiratory Effort Normal Blood Pressure 124/79 H 147/68 H Blood Pressure Mean 94 94 Pulse Ox 100 99 Oxygen Delivery Method Room Air Room Air Positive well nourished and well developed General Appearance ED: well developed and NAD HEENT Reports TM's clear and moist mucous membranes normocephalic and atraumatic; Negative for trauma or tenderness Tympanic Membrane ED: Yes TM's clear Eyes PERRL and EOMs intact bilaterally General Eye ED: Negative for pale conjunctiva or scleral icterus Neck no lymphadenopathy, supple and no JVD General: Negative for tenderness Chest Wall inspection of chest normal and palpation of chest normal Chest: Negative for tenderness Resp normal respiratory effort and clear to auscultation bilaterally Effort and Inspection: Negative for respiratory distress or pain with movement Auscultation: Negative for rhonchi, wheezes or diminished lung sounds Cardio regular rate, regular rhythm, S1 normal heart sound, S2 normal heart sound and no murmurs Rate: bradycardia Peripheral Pulses: pulses 2+ throughout GI normal to inspection, nondistended, normoactive bowel sounds, soft to palpation, non-tender, non-distended and no masses Back/Spine no CVA tenderness and no thoracic nor lumbar tenderness Extremity normal to inspection General Extremety ED: Negative for edema General Extremity: Negative for edema Neuro oriented x3, CN's II-XII intact bilaterally, no sensory deficits noted and gait normal Sensorium / Orientation: awake, alert, oriented to person, oriented to place and oriented to time Motor Exam: strength 5/5 throughout and strength abnormal Psych mental status grossly normal Skin no rashes or lesions noted and no wounds MDM MDM MDM Narrative Medical decision making narrative: Patient presents with bradycardia noted by visiting nurse. Currently relatively asymptomatic. IV established. 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 EKG obtained showed heart rate in the 70s however is noted that he has what looks like bigeminy at times it comes in a sinus rhythm. Initially I suspect that he may have high degree heart block. Discussed case with Dr. Durham who presented to the emergency department to evaluate patient. Given that he is symptomatic with the bradycardia recommended admission to ICU. CBC with differential and chemistries were unremarkable. Troponin was normal at 25. Case will be discussed with hospitalist to evaluate for admission Lab Data Attestation: I reviewed the patient's lab results. Labs: Laboratory Results - last 24 hr 08/23/23 10:45 WBC 6.9 RBC 4.00 L Hgb 12.6 L Hct 37.4 L MCV 93.5 MCH 31.5 MCHC 33.7 RDW Std Deviation 46.5 H RDW Coeff of Leeann 13.5 Plt Count 187 MPV 9.5 Immature Gran % (Auto) 0.400 Neut % (Auto) 62.6 Lymph % (Auto) 25.6 [place] % (Auto) 9.5 Eos % (Auto) 1.6 Baso % (Auto) 0.3 Absolute Neuts (auto) 4.3 Absolute Lymphs (auto) 1.76 Nucleated RBC % 0 Sodium 142 Potassium 3.8 Chloride 109 H Carbon Dioxide 28.0 Anion Gap 5 BUN 19 H Creatinine 1.52 H Estim Creat Clear Calc 44.37 Est GFR (MDRD) Af Amer 58 L Est GFR (MDRD) Non-Af 48 L BUN/Creatinine Ratio 12.5 Glucose 97 Calcium 9.3 Troponin I High Sens 25 EKG Initial EKG: Attestation: I personally reviewed and interpreted this EKG as follows: Comments: Sinus rhythm with frequent PVCs/bigeminy Repeat EKG obtained showed sinus bradycardia with rate in the 54 range with no acute ST segment changes Discharge Plan Dx/Rx/DC Orders Clinical Impression: Bradycardia, History of hypertension, History of coronary artery disease Disposition Disposition: Acute Care [facility]
--- NOTE | 2023-08-23 10:55 | RAD_ITS ---
STUDY: X-RAY CHEST REASON FOR EXAM: Male, 73 years old. Bradycardia TECHNIQUE: Single AP portable view of the chest. COMPARISON: Comparison is made with prior study dated August 03, 2023. FINDINGS: EKG electrodes are seen. Mild residual increased markings in the peripheral aspect of the left upper lobe suggestive of a resorption of prior infiltrate on chronic scarring. There is no demonstrated pleural abnormality. Normal size heart. Normal mediastinum and radhames. Normal visualized pulmonary arteries. There is atherosclerotic calcification of the aortic arch with tortuosity. Normal visualized thoracic spine. Normal visualized ribs, clavicles, and shoulders. There is no demonstrated abnormality of the visualized soft tissue structures of the upper abdomen. RAD/Chest 1 View (Portable) IMPRESSION: Improved aeration of the left upper lobe with residual mild increased markings suggestive of resorption of the previously inflammatory process in residual scarring. Electronically Signed: Haider Cleaning MD at 11:06 EDT ,
[2023-08-23 11:04] LABS: Absolute Lymphocyte Count 1.76 X10^3/uL (0.83-4.51); Absolute Neutrophil Count 4.3 X10^3/uL (2.0-7.7); Basophil# 0.02 X10^3/uL; Basophil% 0.3 % (0-1); Eosinophil# 0.11 X10^3/uL; Eosinophils% 1.6 % (0-5); Hematocrit 37.4 % (40-54); Hemoglobin 12.6 g/dL (13.0-16.5); Lymphocyte # 1.76 X10^3/ul (0.83-4.51); Lymphocyte % 25.6 % (19-41); Mean Corp Hgb Conc 33.7 g/dL (32-36); Mean Corpuscular Hgb 31.5 pg (27.0-32.0); Mean Corpuscular Volume 93.5 fL (80-94); Mean Platelet Vol. 9.5 fl (6.2-12.0); Monocyte# 0.65 X10^3/uL; Monocyte% 9.5 % (0-10); NRBC Flagged by Analyzer 0 % (0-5); Neutrophil % 62.6 % (47-70); Platelet Count 187 K/mm3 (150-450); RBC Distribution Width CV 13.5 % (11.6-14.6); RBC Distribution Width SD 46.5 fl (35.1-43.9); White Blood Count 6.9 K/mm3 (4.4-11.0)
[2023-08-23] MEDS: 0.9% Normal Saline (1000mL) 1,000 ML 150 ML IV (11:20)
[2023-08-23 11:23] LABS: Anion Gap 5 (5-15); BUN 19 mg/dL (7-18); BUN/Creat Ratio 12.5 RATIO (10-20); Calcium,Total 9.3 mg/dL (8.5-10.1); Chloride 109 mmol/L (98-107); Creatinine, Serum 1.52 mg/dL (0.70-1.30); EST Glomerular Filtration Rate 48 mL/min (>60); Est Glom Filt Rate - Afr Amer 58 mL/min (>60); Estimated Creatinine Clearance 44.37 ml/min; Glucose 97 mg/dL (74-106); Potassium 3.8 mmol/L (3.5-5.1); Sodium Level 142 mmol/L (136-145); Troponin-I HS 25 pg/mL (3.0-78.0)
--- NOTE | 2023-08-23 15:06 | PCM.CONS.C ---
Assessment & Plan Assessment/Plan (1) History of coronary artery disease: (2) STEMI (ST elevation myocardial infarction): (3) Chronic kidney disease (CKD), stage III (moderate): QUALIFIERS: Chronic kidney disease stage 3 subtype: unspecified whether 3a or 3b Qualified Code(s): N18.30 - Chronic kidney disease, stage 3 unspecified (4) History of coronary artery stent placement: (5) Near syncope: PLAN: Plan 73-year-old patient, recently discharged from the hospital with a PCI and stent to RCA in-stent restenosis and has been followed at the cardiology outpatient In August 21, 2023 Brought into the ER at [facility] with his I see had bradycardia at home checked by the visiting nurse with a heart rate of around 30 According to the history he was not feeling well for the last 2 days according to the patient had recently drug-eluting stent to the mid RCA in-stent restenosis this was in August 18 2 weeks ago. And has been on treatment with beta-shreya metoprolol dose of 50 mg twice daily in addition to aspirin and Plavix. He does not have any active chest pain. Patient has extensive cardiac history he had non-STEMI with CAD and PCI in 2018 the ejection fraction has been preserved She had a PCI of the left circumflex using drug-eluting stent resolute integrity. Other medical problem include history of hypertension Hyperlipidemia. And also had history of previous stroke. Cardiac care plan recommendations; 1. Reviewed the EKG which showed sinus bradycardia with first degree AV block and PVCs Will discontinue the beta-shreya. Will keep for observation in ICU He been stable hemodynamically does not require temporary pacer. If he remained stable then we will plan for event monitor versus loop recorder implant and a consideration of monitor with medical therapy Will continue to monitor and follow-up in ICU and will DC the beta-shreya. Darnell Booth MD,[facility] HPI Consult Data Date of Consult: 08/23/23 HPI Narrative Reason for Consultation: Near syncope/bradycardia HPI Narrative: SEBASTIEN BARON, is a 73 M who presents [facility] Medical History Abnormal nuclear stress test Alcoholism Anemia Anxiety Atherosclerosis of coronary artery without angina pectoris Back pain BiPAP (biphasic positive airway pressure) dependence BPH (benign prostatic hyperplasia) CAD S/P percutaneous coronary angioplasty Cardiopulmonary arrest Chronic pain Coronary artery disease Dementia Depression Essential (primary) hypertension GI hemorrhage Gout History of stress test Hyperlipidemia Multifocal PVCs with pairing Myocardial infarct Non-smoker NSTEMI (non-ST elevated myocardial infarction) (04/13/18) Obesity Osteoarthritis of right knee Pancreatitis Pulmonary embolism Rheumatoid arthritis Sleep apnea Traumatic brain injury Unstable angina Ventricular tachycardia Home Medications allopurinol 100 mg tablet 200 mg PO QHS gout 11/07/20 [History Last Taken 08/22/23] aspirin 81 mg chewable tablet 81 mg PO DAILY thinner 11/07/20 [History Last Taken 08/23/23] finasteride 5 mg tablet 5 mg PO QHS urine retention 11/07/20 [History Last Taken 08/23/23] tamsulosin 0.4 mg capsule 0.4 mg PO QHS urinary retention 11/07/20 [History Last Taken 08/22/23] alprazolam 0.5 mg tablet (Xanax) 0.25 mg PO .COMPLEX anxiety 11/09/20 [History Last Taken 08/23/23] nitroglycerin 0.4 mg sublingual tablet 0.4 mg sublingual Q5M PRN Cardiac/Chest Pain #0 tabs 11/09/20 [Rx Last Taken Unknown] acetaminophen 500 mg tablet 1,000 mg (2 x 500 mg) PO Q6H PRN PRN Pain Score 1-3 #0 tabs 11/15/20 [Rx Last Taken 08/23/23] famotidine 40 mg tablet 40 mg PO BID ACID REFLUX 06/14/23 [History Last Taken 08/23/23] ondansetron 4 mg disintegrating tablet 4 mg PO Q8-12H PRN nausea 06/14/23 [History Last Taken 08/23/23] rosuvastatin 10 mg tablet 10 mg PO QHS CHOLESTEROL 06/14/23 [History Last Taken 08/22/23] amlodipine 5 mg tablet 5 mg PO QHS BLOOD PRESSURE 08/03/23 [History Last Taken 08/22/23] clopidogrel 75 mg tablet 75 mg PO DAILY CHOLESTEROL #30 tabs 08/08/23 [Rx Last Taken 08/23/23] cholecalciferol (vitamin D3) 1,250 mcg (50,000 unit) capsule 1,250 mcg PO WE SUPPLEMENT 08/21/23 [History Last Taken 08/22/23] metoprolol tartrate 25 mg tablet 25 mg PO BID BLOOD PRESSURE 08/23/23 [History Last Taken 08/23/23] pantoprazole 20 mg tablet,delayed release 40 mg PO BID HEARTBURN 08/23/23 [History Last Taken Unknown] Allergy/AdvReac Type Severity Reaction Status Date / Time tramadol Allergy Severe anxiety Verified 08/23/23 10:33 mold Allergy Unknown unknown Verified 08/23/23 10:33 isosorbide AdvReac Mild Headache Verified 08/23/23 10:33 Family History Mother CAD (coronary artery disease) Surgical History History of coronary artery stent placement (08/06/23) History of knee surgery History of repair of rotator cuff Hx of cholecystectomy Social History household members: spouse Smoking Status: Never smoker alcohol intake: former details: Sober since 2010. substance use type: does not use Physical Exam Cardio Cardio Narrative: I saw this patient in the ER, at bedside at time of evaluation He protean as he had a slow heart rate at home of around 30% checked by visiting nurse He had lightheadedness and dizziness according to the he did not have any syncopal episode He is alert oriented to the time of evaluation cooperative to exam Cardiac examination cardiac rhythm is sinus rhythm with sinus bradycardia Frequent PVCs were noted Cardiovascular examination; S1-S2 is regular, no systolic or diastolic Chest exam is clear to auscultation bilateral. Risk Stratification Risk Stratification Applicable: No Objective Data Vital Signs: Vital Signs Temp Pulse Resp BP Pulse Ox O2 Del Method 98.2 F 49 L 16 127/65 H 100 Room Air 08/23/23 12:44 08/23/23 12:44 08/23/23 12:44 08/23/23 12:44 08/23/23 12:44 08/23/23 13:33 Oxygen Delivery Method Room Air Weight: 189 lb Body Mass Index (BMI) 30.4 Lab / Micro Data 08/23/23 10:45 08/23/23 10:45 Labs: Laboratory Results - last 24 hr 08/23/23 10:45: WBC 6.9, RBC 4.00 L, Hgb 12.6 L, Hct 37.4 L, MCV 93.5, MCH 31.5, MCHC 33.7, RDW Std Deviation 46.5 H, RDW Coeff of Leeann 13.5, Plt Count 187, MPV 9.5, Immature Gran % (Auto) 0.400, Neut % (Auto) 62.6, Lymph % (Auto) 25.6, [place] % (Auto) 9.5, Eos % (Auto) 1.6, Baso % (Auto) 0.3, Absolute Neuts (auto) 4.3, Absolute Lymphs (auto) 1.76, Nucleated RBC % 0, Sodium 142, Potassium 3.8, Chloride 109 H, Carbon Dioxide 28.0, Anion Gap 5, BUN 19 H, Creatinine 1.52 H, Estim Creat Clear Calc 44.37, Est GFR (MDRD) Af Amer 58 L, Est GFR (MDRD) Non-Af 48 L, BUN/Creatinine Ratio 12.5, Glucose 97, Calcium 9.3, Troponin I High Sens 25 Cardiology Labs/Tests 08/23/23 10:45: WBC 6.9, RBC 4.00 L, Hgb 12.6 L, Hct 37.4 L, MCV 93.5, MCH 31.5, MCHC 33.7, Plt Count 187, MPV 9.5, Immature Gran % (Auto) 0.400, Neut % (Auto) 62.6, Lymph % (Auto) 25.6, [place] % (Auto) 9.5, Eos % (Auto) 1.6, Baso % (Auto) 0.3, Absolute Neuts (auto) 4.3, Nucleated RBC % 0, Sodium 142, Potassium 3.8, Chloride 109 H, Carbon Dioxide 28.0, Anion Gap 5, BUN 19 H, Creatinine 1.52 H, Est GFR (MDRD) Af Amer 58 L, Est GFR (MDRD) Non-Af 48 L, BUN/Creatinine Ratio 12.5, Glucose 97, Calcium 9.3 Rhythm: EKG: ECHO: Stress Test: Cardiac Cath: PCI: CT Surgery: Holter monitor: EPS: PPM: CXR: Chest CT Scan: Radiography Diagnostic Testing: Radiology Impression Chest X-Ray 08/23/23 10:55 IMPRESSION: Improved aeration of the left upper lobe with residual mild increased markings suggestive of resorption of the previously inflammatory process in residual scarring. Electronically Signed: Haider Cleaning MD at 11:06 EDT ,
[2023-08-23] MEDS: oxyCODONE 5 MG Tablet PO ×2 (15:48→22:51)
--- NOTE | 2023-08-23 16:35 | PCM.HP.STD ---
HPI - General General Date of Admission: 08/23/23 HPI Narrative SEBASTIEN BARON, is a 73 M who presents to the hospital with symptomatic bradycardia. He was being evaluated by his home nurse when she noticed that his heart rate was in the 30s and he was complaining about being dizzy and lightheaded. He appeared diaphoretic at that time so she called 911 and sent him to the ER. In the ER he was found to be bradycardic but the symptoms had resolved and he was not hypotensive however he had had a heart cath 2 weeks ago and had a cardiac arrest episode into V-fib after his heart cath so cardiology was consulted and recommended admission for overnight observation in the ICU with the possibility of further procedures depending telemetry findings. He denies any chest pain and feels well otherwise though he does notice when his heart rate is dropping really low as he does get lightheaded and diaphoretic and his who is at bedside states that she sees him become very rosenbaum. EKG does appear to be a first-degree AV block with PVCs. [facility] Medical History Abnormal nuclear stress test Alcoholism Anemia Anxiety Atherosclerosis of coronary artery without angina pectoris Back pain BiPAP (biphasic positive airway pressure) dependence BPH (benign prostatic hyperplasia) CAD S/P percutaneous coronary angioplasty Cardiopulmonary arrest Chronic pain Coronary artery disease Dementia Depression Essential (primary) hypertension GI hemorrhage Gout History of stress test Hyperlipidemia Multifocal PVCs with pairing Myocardial infarct Non-smoker NSTEMI (non-ST elevated myocardial infarction) (04/13/18) Obesity Osteoarthritis of right knee Pancreatitis Pulmonary embolism Rheumatoid arthritis Sleep apnea Traumatic brain injury Unstable angina Ventricular tachycardia Home Medications allopurinol 100 mg tablet 200 mg PO QHS gout 11/07/20 [History Last Taken 08/22/23] aspirin 81 mg chewable tablet 81 mg PO DAILY thinner 11/07/20 [History Last Taken 08/23/23] finasteride 5 mg tablet 5 mg PO QHS urine retention 11/07/20 [History Last Taken 08/23/23] tamsulosin 0.4 mg capsule 0.4 mg PO QHS urinary retention 11/07/20 [History Last Taken 08/22/23] alprazolam 0.5 mg tablet (Xanax) 0.25 mg PO .COMPLEX anxiety 11/09/20 [History Last Taken 08/23/23] nitroglycerin 0.4 mg sublingual tablet 0.4 mg sublingual Q5M PRN Cardiac/Chest Pain #0 tabs 11/09/20 [Rx Last Taken Unknown] acetaminophen 500 mg tablet 1,000 mg (2 x 500 mg) PO Q6H PRN PRN Pain Score 1-3 #0 tabs 11/15/20 [Rx Last Taken 08/23/23] famotidine 40 mg tablet 40 mg PO BID ACID REFLUX 06/14/23 [History Last Taken 08/23/23] ondansetron 4 mg disintegrating tablet 4 mg PO Q8-12H PRN nausea 06/14/23 [History Last Taken 08/23/23] rosuvastatin 10 mg tablet 10 mg PO QHS CHOLESTEROL 06/14/23 [History Last Taken 08/22/23] amlodipine 5 mg tablet 5 mg PO QHS BLOOD PRESSURE 08/03/23 [History Last Taken 08/22/23] clopidogrel 75 mg tablet 75 mg PO DAILY CHOLESTEROL #30 tabs 08/08/23 [Rx Last Taken 08/23/23] cholecalciferol (vitamin D3) 1,250 mcg (50,000 unit) capsule 1,250 mcg PO WE SUPPLEMENT 08/21/23 [History Last Taken 08/22/23] metoprolol tartrate 25 mg tablet 25 mg PO BID BLOOD PRESSURE 08/23/23 [History Last Taken 08/23/23] pantoprazole 20 mg tablet,delayed release 40 mg PO BID HEARTBURN 08/23/23 [History Last Taken Unknown] Allergy/AdvReac Type Severity Reaction Status Date / Time tramadol Allergy Severe anxiety Verified 08/23/23 10:33 mold Allergy Unknown unknown Verified 08/23/23 10:33 isosorbide AdvReac Mild Headache Verified 08/23/23 10:33 Family History Mother CAD (coronary artery disease) Surgical History History of coronary artery stent placement (08/06/23) History of knee surgery History of repair of rotator cuff Hx of cholecystectomy Social History household members: spouse Smoking Status: Never smoker alcohol intake: former details: Sober since 2010. substance use type: does not use ROS Constitutional Constitutional: Denies chills, fatigue, fever(s) or malaise Eyes Eyes: Denies blurry vision ENT HEENT: Denies headache(s) or nasal discharge Cardiovascular Cardiovascular: Reports lightheadedness; Denies chest pain, dyspnea on exertion or syncope Respiratory/Chest Respiratory/Chest: Denies cough, shortness of breath at rest or shortness of breath with exertion Gastrointestinal Gastrointestinal: Denies constipation, diarrhea, nausea or vomiting Genitourinary Genitourinary: Denies dysuria Neurologic Neurologic: Denies focal weakness, numbness or tremor(s) Psychiatric Psychiatric: Denies anxiety or depression Vital Signs Vital Signs Vital Signs: 08/23/23 10:34 08/23/23 10:33 08/23/23 10:41 Temperature 97.1 F L Temperature Source Temporal Pulse Rate 33 L 59 L Respiratory Rate 12 23 H Respiratory Effort Normal Respiratory Depth Respiratory Pattern Blood Pressure 124/79 H 147/68 H Blood Pressure Mean 94 94 Blood Pressure Source Blood Pressure Position Blood Pressure Location Pulse Ox 100 99 Oxygen Delivery Method Room Air Room Air 08/23/23 11:33 08/23/23 12:43 08/23/23 12:44 Temperature 97.4 F L 98.1 F 98.2 F Temperature Source Temporal Oral Pulse Rate 52 L 49 L 49 L Respiratory Rate 16 17 16 Respiratory Effort Respiratory Depth Respiratory Pattern Blood Pressure 119/104 H 127/68 H 127/65 H Blood Pressure Mean 109 87 85 Blood Pressure Source Blood Pressure Position Blood Pressure Location Pulse Ox 98 100 100 Oxygen Delivery Method Nasal Cannula Nasal Cannula 08/23/23 13:33 08/23/23 13:08 Temperature 97.0 F L Temperature Source Temporal Pulse Rate 60 Respiratory Rate 14 Respiratory Effort Non-Labored Respiratory Depth Normal Respiratory Pattern Normal Blood Pressure 142/78 H Blood Pressure Mean 99 Blood Pressure Source Monitor Blood Pressure Position Semi-Fowlers Blood Pressure Location Right Arm Pulse Ox 99 Oxygen Delivery Method Room Air Room Air Weight Weight: 189 lb Body Mass Index (BMI) 30.4 Physical Exam Narrative General: Alert, Oriented x3, Cooperative, No apparent distress HEENT: Atraumatic, PERRLA, EOMI, Normocephalic Oral: Moist Mucosa Neck: Supple, No JVD Lungs: Diminished, Normal air movement, No rhonchi, No wheeze, No rales Cardiovascular: Bradycardic, Regular Rhythm, Normal S1, Normal S2, No murmurs Abdomen: Soft, Non Tender, Non-Distended, No Hepato-splenomegaly Extremities: No edema, Capillary Refill Less than 3 Seconds Skin: Ecchymosis on his right wrist from his previous heart cath Musculoskeletal: No Tenderness to Palpation of Joints or Extremities Neurological: No focal neurological deficits, Motor Exam 5/5 strength throughout, Sensory exam intact to light touch and pain Psych/Mental Status: Normal Affect, Appropriate Results Lab / Micro Data 08/23/23 10:45 08/23/23 10:45 Labs: Laboratory Results - last 24 hr 08/23/23 10:45: WBC 6.9, RBC 4.00 L, Hgb 12.6 L, Hct 37.4 L, MCV 93.5, MCH 31.5, MCHC 33.7, RDW Std Deviation 46.5 H, RDW Coeff of Leeann 13.5, Plt Count 187, MPV 9.5, Immature Gran % (Auto) 0.400, Neut % (Auto) 62.6, Lymph % (Auto) 25.6, Cherry % (Auto) 9.5, Eos % (Auto) 1.6, Baso % (Auto) 0.3, Absolute Neuts (auto) 4.3, Absolute Lymphs (auto) 1.76, Nucleated RBC % 0, Sodium 142, Potassium 3.8, Chloride 109 H, Carbon Dioxide 28.0, Anion Gap 5, BUN 19 H, Creatinine 1.52 H, Estim Creat Clear Calc 44.37, Est GFR (MDRD) Af Amer 58 L, Est GFR (MDRD) Non-Af 48 L, BUN/Creatinine Ratio 12.5, Glucose 97, Calcium 9.3, Troponin I High Sens 25 Imaging Radiology Impression Chest X-Ray 08/23/23 10:55 IMPRESSION: Improved aeration of the left upper lobe with residual mild increased markings suggestive of resorption of the previously inflammatory process in residual scarring. Electronically Signed: Haider Cleaning MD at 11:06 EDT , Assessment & Plan Assessment/Plan (1) Near syncope: (2) Bradycardia: PLAN: Plan 1. Near syncope with bradycardia/CAD status post stent/HTN/HLD/status post resuscitation from V-fib arrest ? Appreciate cardiology's assistance ? Will discontinue his beta-shreya ? Will monitor him overnight on telemetry ? He may need a Holter monitor versus implantable loop recorder ? Will resume his other home blood pressure medications and continue with his aspirin and Plavix ? Will monitor make adjustments as necessary ? Continue with Crestor 2. GERD ? Stable?continue with PPI 3. BPH ? Stable ? Continue with Flomax 4. Anxiety ? Stable ? Continue with Xanax 5. Gout ? Stable ? Continue with allopurinol DVT: SCDs 75 minutes was spent on direct patient care, including documentation as well as chart review and collaboration with colleagues Charges/Coding Visit Charges Inpatient E&M: 42404 Init Hosp L3
[2023-08-23] MEDS: amLODIPine 5 MG Tablet PO (21:01)
[2023-08-23] MEDS: Famotidine 20 MG Tablet 40 MG PO (21:02)
[2023-08-23] MEDS: Allopurinol 100 MG Tablet 200 MG PO (21:02)
[2023-08-24 02:51] VITALS: BP 131/74; PULSE 63; RESP 15; TEMP 36.1; O2SAT 99
[2023-08-24 03:45] LABS: Absolute Neutrophil Count 3.9 X10^3/uL (2.0-7.7); Basophil# 0.04 X10^3/uL; Basophil% 0.5 % (0-1); Eosinophil# 0.28 X10^3/uL; Eosinophils% 3.7 % (0-5); Hematocrit 33.8 % (40-54); Lymphocyte % 34.6 % (19-41); Mean Corp Hgb Conc 32.5 g/dL (32-36); Mean Corpuscular Hgb 30.5 pg (27.0-32.0); Mean Corpuscular Volume 93.6 fL (80-94); Mean Platelet Vol. 9.7 fl (6.2-12.0); Monocyte# 0.67 X10^3/uL; Monocyte% 8.9 % (0-10); NRBC Flagged by Analyzer 0 % (0-5); Neutrophil # 3.88 X10^3/uL (2.7-7.7); Neutrophil % 51.8 % (47-70); Platelet Count 176 K/mm3 (150-450); RBC Distribution Width CV 13.3 % (11.6-14.6); RBC Distribution Width SD 45.4 fl (35.1-43.9); Red Blood Count 3.61 M/mm3 (4.6-6.2); White Blood Count 7.5 K/mm3 (4.4-11.0)
[2023-08-24 03:58] LABS: Anion Gap 4 (5-15); BUN 21 mg/dL (7-18); BUN/Creat Ratio 18.3 RATIO (10-20); Calcium,Total 8.8 mg/dL (8.5-10.1); Chloride 112 mmol/L (98-107); Creatinine, Serum 1.15 mg/dL (0.70-1.30); EST Glomerular Filtration Rate 66 mL/min (>60); Est Glom Filt Rate - Afr Amer 80 mL/min (>60); Estimated Creatinine Clearance 58.72 ml/min; Glucose 94 mg/dL (74-106); Sodium Level 142 mmol/L (136-145)
[2023-08-24] MEDS: oxyCODONE 5 MG Tablet PO (05:05)
[2023-08-24] MEDS: 0.9% Saline Lock 10 ML Syringe IV (05:05)
--- NOTE | 2023-08-24 07:36 | NURSING ---
update given to Rich (pt's ) at this time.
[2023-08-24 09:00] VITALS: BP 128/78; PULSE 60; RESP 16; TEMP 36.3; O2SAT 100
[2023-08-24] MEDS: Clopidogrel Bisulfate 75 MG Tablet PO (09:12)
[2023-08-24] MEDS: Aspirin 81 MG TAB.CHEW PO (09:12)
[2023-08-24] MEDS: Famotidine 20 MG Tablet 40 MG PO (09:12)
--- NOTE | 2023-08-24 10:07 | PCM.DC ---
Discharge Instructions Diet Discharge Diet: Low fat / Low cholesterol Activity Discharge Activity: Return to Normal Activity Dressing / Incision Call your doctor if you observe: Fever of 101 or Higher, Shortness of breath, Dizziness, Fainting spells, Swelling in the ankles, Chest pain and Increased palpitations (irregular heartbeat) Follow Up Care Test Results: Test results from this visit will be discussed in further detail at your follow-up appointment, if applicable. Discharge Plan Admission Admit Date/Time: 08/23/23 11:40 Attending Provider: Stevan Max Primary Care Provider: Herb Wolf Consulting Providers: Darnell Booth Discharge Orders/Prescriptions Prescriptions: Continued ondansetron 4 mg tablet,disintegrating 4 mg PO Q8-12H PRN (Reason: nausea) famotidine 40 mg tablet 40 mg PO BID rosuvastatin 10 mg tablet 10 mg PO QHS cholecalciferol (vitamin D3) 1,250 mcg (50,000 unit) capsule 1,250 mcg PO WE allopurinol 100 mg Tablet 200 mg PO QHS tamsulosin 0.4 mg Capsule 0.4 mg PO QHS aspirin 81 mg Tablet,Chewable 81 mg PO DAILY finasteride 5 mg Tablet 5 mg PO QHS nitroglycerin 0.4 mg Tablet, Sublingual 0.4 mg sublingual Q5M PRN (Reason: Cardiac/Chest Pain) Qty: 0 0RF alprazolam [Xanax] 0.5 mg tablet 0.25 mg PO .COMPLEX Patient Comments: family states that last night pt had worse anxiety and was given 0.25mg at 9pm, and then 0.5mg at bedtime. Rx Instructions: 0.25 mg orally morning and afternoon; 0.5 mg orally qhs acetaminophen 500 mg Tablet 1,000 mg PO Q6H PRN PRN (Reason: Pain Score 1-3) Qty: 0 0RF amlodipine 5 mg tablet 5 mg PO QHS clopidogrel 75 mg Tablet 75 mg PO DAILY Qty: 30 11RF pantoprazole 20 mg tablet,delayed release (DR/EC) 40 mg PO BID Discontinued metoprolol tartrate 25 mg tablet 25 mg PO BID Patient Comments: PT WAS INCREASED TO 50MG, BUT THEN DECREASED BACK TO 25MG. Referrals / Follow Up: Herb Wolf DO [Primary Care Provider] - Within 1 Week Roof,Sebastian H RENTAL AGENT, RENTAL AGENT-C [Med Staff - Adv Practice Prof] - Within 1 Month Disposition Disposition (needs filled in before D/C Order can be placed): Home, Self Care
--- NOTE | 2023-08-24 10:59 | CASEMGMT ---
Readmission Note: Index: 08/02-08/08/23. Dx: Unstable Angina Readmission: 08/23/23. Dx: Symptomatic Bradycardia Pt with a history of Alcoholism, anxiety, atherosclerosis, CAD, Cardiopulmonary arrest, HTN, Hyperlipidemia, [place], and unstable angina was admitted on the above noted dates for the corresponding dx?s. On index admission, the pt received a heart cath and had a cardiac arrest episode into V-fib afterwards and was transferred and treated in the ICU. Pt was eventually stable enough to DC home with [facility] (SN,PT, OT). Pt returns to the [facility] ER with with bradycardia. The nurse noted the pt to have a heart rate in the 30's and the pt was dizzy and lightheaded. The pt was also diaphoretic. Pt was admitted to the ICU for monitoring and treatment. Face to face with pt at this time. Regarding the pt previous DC instructions, the pt states that he is aware of the low fat/ low cholesterol diet that was recommended. Pt states that he has been adhering to this. Pt states that he was able to get his new Rx (Plavix and new, lower dose Metoprolol). Pt states that he was taking 50mg of Metoprolol and then it was decreased to 25mg. Pt is aware that this is now discontinued per Dr. Max's DC instructions. Pt states that his PCP f/u appt is next Sunday. Pt states that he was able to follow up with [facility] (Sebastain Diallo) on 08/15. Pt does have a DC order placed. Pt states that he is ind at home and that he lives with his who will drive him home. Pt is active with [facility] and states that his daughter works for [employer]. Pt states that his daughter has already notified [facility] that the pt is in the hospital and will be discharging today. Pt states that he feels safe discharging home with the continuation of his home health. Pt states that he is going to get a Holter monitor prior to leaving [facility]. Pt denies any further questions or concerns at this time.
[2023-08-24 11:32] VITALS: BP 128/78; PULSE 60; RESP 16; TEMP 36.3; O2SAT 100
--- NOTE | 2023-08-24 16:42 | DS.PCM_ITS ---
Providers Date of Admission: 08/23/23 Primary Care Physician: Dr. Herb Wolf, Consultations 08/23/23 13:03 Consult: Cardiology Routine Consulting Provider: Darnell Booth Reason for Consult: Symptomatic bradycardia EMERGENT Consult: No MD Notified: Yes Date Notified: 08/23/23 Time Notified: 12:11 Method of Notification: ED Physician Initiated Reason For Visit: SYMPTOMATIC BRADYCARDIC, HISTORY OF Diagnosis Discharge Diagnosis (1) Near syncope: Status: Acute Code(s): R55 - Syncope and collapse (2) Bradycardia: Status: Acute Code(s): R00.1 - Bradycardia, unspecified Medications at Discharge Home Medications allopurinol 100 mg tablet 200 mg PO QHS gout 11/07/20 aspirin 81 mg chewable tablet 81 mg PO DAILY thinner 11/07/20 finasteride 5 mg tablet 5 mg PO QHS urine retention 11/07/20 tamsulosin 0.4 mg capsule 0.4 mg PO QHS urinary retention 11/07/20 alprazolam 0.5 mg tablet (Xanax) 0.25 mg PO .COMPLEX anxiety 11/09/20 nitroglycerin 0.4 mg sublingual tablet 0.4 mg sublingual Q5M PRN Cardiac/Chest Pain #0 tabs 11/09/20 acetaminophen 500 mg tablet 1,000 mg (2 x 500 mg) PO Q6H PRN PRN Pain Score 1-3 #0 tabs 11/15/20 famotidine 40 mg tablet 40 mg PO BID ACID REFLUX 06/14/23 ondansetron 4 mg disintegrating tablet 4 mg PO Q8-12H PRN nausea 06/14/23 rosuvastatin 10 mg tablet 10 mg PO QHS CHOLESTEROL 06/14/23 amlodipine 5 mg tablet 5 mg PO QHS BLOOD PRESSURE 08/03/23 clopidogrel 75 mg tablet 75 mg PO DAILY CHOLESTEROL #30 tabs 08/08/23 cholecalciferol (vitamin D3) 1,250 mcg (50,000 unit) capsule 1,250 mcg PO WE SUPPLEMENT 08/21/23 pantoprazole 20 mg tablet,delayed release 40 mg PO BID HEARTBURN 08/23/23 Hospital Course Operations None Procedures None Summary of Care Provided Minutes Spent on Discharge: 33 Hospital Course: Per HPI: SEBASTIEN BARON, is a 73 M who presents to the hospital with symptomatic bradycardia. He was being evaluated by his home nurse when she noticed that his heart rate was in the 30s and he was complaining about being dizzy and lighth eaded. He appeared diaphoretic at that time so she called 911 and sent him to the ER. In the ER he was found to be bradycardic but the symptoms had resolved and he was not hypotensive however he had had a heart cath 2 weeks ago and had a cardiac arrest episode into V-fib after his heart cath so cardiology was consulted and recommended admission for overnight observation in the ICU with the possibility of further procedures depending telemetry findings. He denies any chest pain and feels well otherwise though he does notice when his heart rate is dropping really low as he does get lightheaded and diaphoretic and his who is at bedside states that she sees him become very rosenbaum. EKG does appear to be a first-degree AV block with PVCs. Hospital Course: 1. Near syncope with bradycardia/CAD status post stent/HTN/HLD/status post resuscitation from V-fib arrest?73-year-old male presented to the hospital with near syncope and what appeared to be sinus bradycardia versus first-degree AV block with PVCs. Cardiology was consulted and wanted to observe him overnight to see what his heart rate would do with holding metoprolol. He did not have another episode of diaphoresis and bradycardia down into the 30s and he felt better today. Unfortunately there is somewhat of a risk as he was placed on metoprolol after his heart cath because of multiple PVCs. Cardiology felt that he could follow-up as an outpatient to obtain either a Holter monitor or implanted loop recorder. Cardiology was in agreement with discharge and I discussed with the patient the plan for discharge and he expressed understanding of the risk benefits of going home and would like to go home today. I do recommend continuing to hold his metoprolol and he is to follow-up as an outpat ient with cardiology for further evaluation. We discussed reasons to return to the hospital including repeated episodes of chest pain and bradycardia. 2. GERD, BPH, anxiety, gout are all chronic medical conditions which complicate his care. His home medications were continued where appropriate Physical Exam Narrative General: Alert, Oriented x3, Cooperative, No apparent distress HEENT: Atraumatic, PERRLA, EOMI, Normocephalic Oral: Moist Mucosa Neck: Supple, No JVD Lungs: Diminished, Normal air movement, No rhonchi, No wheeze, No rales Cardiovascular: Regular rate, Regular Rhythm, Normal S1, Normal S2, No murmurs Abdomen: Soft, Non Tender, Non-Distended, No Hepato-splenomegaly Extremities: No edema, Capillary Refill Less than 3 Seconds Skin: Ecchymosis on his right wrist from his previous heart cath Musculoskeletal: No Tenderness to Palpation of Joints or Extremities Neurological: No focal neurological deficits, Motor Exam 5/5 strength throughout, Sensory exam intact to light touch and pain Psych/Mental Status: Normal Affect, Appropriate Weight / BMI Weight Weight: 189 lb Body Mass Index (BMI) 30.4 ABG / Lab / Microbiology Data 08/24/23 03:38 08/24/23 03:38 Laboratory: Laboratory Results - last 24 hr 08/24/23 03:38: WBC 7.5, RBC 3.61 L, Hgb 11.0 L, Hct 33.8 L, MCV 93.6, MCH 30.5, MCHC 32.5, RDW Std Deviation 45.4 H, RDW Coeff of Leeann 13.3, Plt Count 176, MPV 9.7, Immature Gran % (Auto) 0.500, Neut % (Auto) 51.8, Lymph % (Auto) 34.6, [place] % (Auto) 8.9, Eos % (Auto) 3.7, Baso % (Auto) 0.5, Absolute Neuts (auto) 3.9, Absolute Lymphs (auto) 2.60, Nucleated RBC % 0, Sodium 142, Potassium 4.0, Ch loride 112 H, Carbon Dioxide 26.0, Anion Gap 4 L, BUN 21 H, Creatinine 1.15, Estim Creat Clear Calc 58.72, Est GFR (MDRD) Af Amer 80, Est GFR (MDRD) Non-Af 66, BUN/Creatinine Ratio 18.3, Glucose 94, Calcium 8.8 D/C Instructions Discharge Diet: Low fat / Low cholesterol Call your doctor if you observe: Fever of 101 or Higher, Shortness of breath, Dizziness, Fainting spells, Swelling in the ankles, Chest pain and Increased palpitations (irregular heartbeat) Meaningful Use Info Meaningful Use Diagnoses (Choose all that apply): None applicable Discharge Plan Admission Admit Date/Time: 08/23/23 11:40 Attending Provider: Stevan Max Primary Care Provider: Herb Wolf Consulting Providers: Darnell Booth Discharge Orders/Prescriptions Prescriptions: Continued ondansetron 4 mg tablet,disintegrating 4 mg PO Q8-12H PRN (Reason: nausea) famotidine 40 mg tablet 40 mg PO BID rosuvastatin 10 mg tablet 10 mg PO QHS cholecalciferol (vitamin D3) 1,250 mcg (50,000 unit) capsule 1,250 mcg PO WE allopurinol 100 mg Tablet 200 mg PO QHS tamsulosin 0.4 mg Capsule 0.4 mg PO QHS aspirin 81 mg Tablet,Chewable 81 mg PO DAILY finasteride 5 mg Tablet 5 mg PO QHS nitroglycerin 0.4 mg Tablet, Sublingual 0.4 mg sublingual Q5M PRN (Reason: Cardiac/Chest Pain) Qty: 0 0RF alprazolam [Xanax] 0.5 mg tablet 0.25 mg PO .COMPLEX Patient Comments: family states that last night pt had worse anxiety and was given 0.25mg at 9pm, and then 0.5mg at bedtime. Rx Instructions: 0.25 mg orally morning and afternoon; 0.5 mg orally qhs acetaminophen 500 mg Tablet 1,000 mg PO Q6H PRN PRN (Reason: Pain Score 1-3) Qty: 0 0RF amlodipine 5 mg tablet 5 mg PO QHS clopidogrel 75 mg Tablet 75 mg PO DAILY Qty: 30 11RF pantoprazole 20 mg tablet,delayed release (DR/EC) 40 mg PO BID Discontinued metoprolol tartrate 25 mg tablet 25 mg PO BID Patient Comments: PT WAS INCREASED TO 50MG, BUT THEN DECREASED BACK TO 25MG. Referrals / Follow Up: Herb Wolf DO [Primary Care Provider] - Within 1 Week Sebastian Diallo NP, OVER SHORT AND DAMAGE CLERK-C [Med Staff - [facility] Practice Prof] - Within 1 Month Disposition Disposition (needs filled in before D/C Order can be placed): Home, Self Care Charges/Coding Visit Charges Inpatient E&M: 47149 Disch Hosp >30min
--- NOTE | 2023-08-27 16:12 | CASEMGMT ---
Discharge Planning Resumption HH referral with discharge orders sent to [facility] via [facility]. Gaby Do, Discharge Planning Asst.
== END 2023-08-24 12:55 | disposition home health service (06) | DRG 282 ==
LOC: ED 12:01 → ICU 12:29
PROVIDERS: Admitting Provider Family Medicine; Emergency Provider Emergency Medicine; PCP Family Medicine; Visit Provider Family Medicine
DX: R00.1 Bradycardia, unspecified (principal); I21.3 ST elevation (STEMI) myocardial infarction of unspecified site; N18.30 Chronic kidney disease, stage 3 unspecified; M06.9 Rheumatoid arthritis, unspecified; I12.9 Hypertensive chronic kidney disease with stage 1 through stage 4 chronic kidney disease, or unspecified chronic kidney disease; E78.5 Hyperlipidemia, unspecified; I25.10 Atherosclerotic heart disease of native coronary artery without angina pectoris; K21.9 Gastro-esophageal reflux disease without esophagitis; M10.9 Gout, unspecified; F41.9 Anxiety disorder, unspecified; N40.0 Benign prostatic hyperplasia without lower urinary tract symptoms; Z79.82 Long term (current) use of aspirin; Z79.02 Long term (current) use of antithrombotics/antiplatelets; Z79.899 Other long term (current) drug therapy; Z95.5 Presence of coronary angioplasty implant and graft; Z86.73 Personal history of transient ischemic attack (TIA), and cerebral infarction without residual deficits
CPT/HCPCS: 71045; 80048; 84484; 85025; 93005; 99285; J7030; A4216

== ENCOUNTER → 2023-08-24 | Outpatient (CLI) | payer MEDICARE, SELFPAY ==
[2020-01-05 11:37] VITALS: BMI 34.5
== END | disposition home or self-care (01) ==
LOC: PSN 11:57
PROVIDERS: PCP Family Medicine; Referring Provider Physician Assistant Medical; Visit Provider Physician Assistant Medical
DX: R00.1 Bradycardia, unspecified (principal)
CPT/HCPCS: 93225; 93226

== ENCOUNTER 2023-10-10 15:25 | Emergency (ER) | payer MEDICARE, SELFPAY ==
[2020-01-05 11:37] VITALS: BMI 34.5
[2023-10-10 15:26] VITALS: BP 134/77; PULSE 69; RESP 16; TEMP 36.7; O2SAT 98
[2023-10-10 15:28] VITALS: BP 134/77; PULSE 64; RESP 16; TEMP 36.7; O2SAT 96; BMI 28.5
[2023-10-10 15:33] VITALS: O2SAT 98
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
[2023-10-10] MEDS: Acetaminophen 500 MG Tablet 1000 MG PO (15:55)
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
[2023-10-10 17:26] VITALS: BP 133/78; PULSE 71; RESP 16; O2SAT 97
[2023-10-10] MEDS: Oxycodone/Apap 5/325 Tablet PO (19:14)
[2023-10-10 19:16] VITALS: BP 133/78
== END 2023-10-10 19:25 | disposition home or self-care (01) ==
PROVIDERS: Emergency Provider Emergency Medicine; PCP Family Medicine; Visit Provider Emergency Medicine
DX: S39.012A Strain of muscle, fascia and tendon of lower back, initial encounter (principal); N18.30 Chronic kidney disease, stage 3 unspecified; S80.02XA Contusion of left knee, initial encounter; I25.10 Atherosclerotic heart disease of native coronary artery without angina pectoris; I12.9 Hypertensive chronic kidney disease with stage 1 through stage 4 chronic kidney disease, or unspecified chronic kidney disease; K21.9 Gastro-esophageal reflux disease without esophagitis; E78.5 Hyperlipidemia, unspecified; V43.52XA Car driver injured in collision with other type car in traffic accident, initial encounter
CPT/HCPCS: 73564; 99283

== ENCOUNTER → 2023-12-11 | Outpatient (CLI) | payer MEDICARE, SELFPAY ==
[2020-01-05 11:37] VITALS: BMI 34.5
--- NOTE | 2023-12-11 09:57 | NEURO ---
NCS and/or EMG Patient Report Ordering Doctor: Norberto Thomas DATE OF SERVICE: 12/11/23 Clinical Summary: 73 year old male patient with symptoms of numbness, tingling, and burning pain in his feet/toes. Nerve Conduction Studies Summary: The left peroneal motor conduction velocity is reduced at the fibular head. Otherwise, nerve conduction studies were within normal ranges for the patient's reported age. Needle Examination Summary: Needle examination of select muscles of the bilateral lower extremity was normal. Impression: There is no electrodiagnostic evidence of a large-fiber peripheral polyneuropathy. There is no electrodiagnostic evidence of a right/left lumbosacral radiculopathy. Multi Select Codes Neurology Neurology Interp Codes: 11466-04 Musc test done w/n test comp (interp) (2) and 77806-61 Nrv cndj test 7-8 studies (interp)
--- NOTE | 2023-12-11 12:49 | CDU_ITS ---
Reason For Study: R ICA stenosis on CTA 2022 Rt. Velocities/BP Lt. Velocities/BP Prox CCA 57.0/14.5 cm/sec. Prox CCA 68.2/9.7 cm/sec. Mid CCA 60.7/16.3 cm/sec. Mid CCA 86.0/13.9 cm/sec. Dist CCA 51.3/15.4 cm/sec. Dist CCA 67.2/11.8 cm/sec. Prox ICA 93.7/24.3 cm/sec. Prox ICA 59.3/20.0 cm/sec. Mid ICA 115.6/17.0 cm/sec. Mid ICA 65.4/20.0 cm/sec. Dist ICA 157.4/47.2 cm/sec. Dist ICA 79.0/26.2 cm/sec. Rt. ICA/CCA = 2.6. Lt. ICA/CCA = .9. Prox ECA 98.1/11.3 cm/sec. Prox ECA 59.7/9.3 cm/sec. Rt. Vert. 50.5/14.9 cm/sec. Lt. Vert. 39.7/7.7 cm/sec. Right Extracranial There is homogeneous, smooth atherosclerotic plaque noted in the right common carotid artery. There is heterogeneous, irregular atherosclerotic plaque noted in the right internal carotid artery. There is heterogeneous, irregular atherosclerotic plaque noted in the right external carotid artery. Antegrade flow is noted in the right vertebral artery. Left Extracranial There is homogeneous, smooth atherosclerotic plaque noted in the left common carotid artery. There is heterogeneous, irregular atherosclerotic plaque noted in the left internal carotid artery. There is homogeneous, smooth atherosclerotic plaque noted in the left external carotid artery. Antegrade flow is noted in the left vertebral artery. Procedure Carotid Duplex 02479. This is a Carotid Duplex examination using B-mode, color flow and specral Doppler. The exam was diagnostic. Exam performed in department. VL/Carotid Duplex Ultrasound Interpretation Summary Mild (<50%) stenosis right extracranial internal carotid. Elevated velocities i n the distal right internal carotid artery are suspected to be due to arterial tortuosity. Mild (< 50%) stenosis left extracranial internal carotid. Flow within the vertebral arteries is antegrade bilaterally. Arterial waveforms in the left subclavian artery are indicative of a subclavian pre-stea l syndrome, in which stenosis of the proximal left subclavian artery may be present. Clinical correl ation is advised. Ordering Physician: Norberto Thomas Referring Physician: Norberto Thomas Performed By: Simon Tang, RVT
== END | disposition home or self-care (01) ==
PROVIDERS: PCP Family Medicine; Referring Provider Psychiatry & Neurology Neurology; Visit Provider Psychiatry & Neurology Neurology
DX: R20.2 Paresthesia of skin (principal); G62.9 Polyneuropathy, unspecified; M54.50 Low back pain, unspecified
CPT/HCPCS: 93880; 95886; 95910

== ENCOUNTER → 2024-01-08 | Outpatient (CLI) | payer MEDICARE, SELFPAY ==
[2020-01-05 11:37] VITALS: BMI 34.5
--- NOTE | 2024-01-08 10:11 | MRI_ITS ---
STUDY: MRI BRAIN WITHOUT CONTRAST REASON FOR EXAM: Male, 73 years old. evaluation of mild dementia TECHNIQUE: Standardized multiplanar fat and water weighted pulse sequences were obtained. COMPARISON: 01/11/2023 FINDINGS: Normal size of the ventricles and extra-axial spaces for the patient''s age. Normal white matter tracts of the supratentorial brain. There is no evidence for recent intracranial ischemia or other cause of cytotoxic edema on diffusion weighted imaging (DWI). Normal T2* images of the brain without demonstrated susceptibility artifact. There is no demonstrated hemosiderin stain. Normal bilateral basal ganglia. Normal thalami. There is no extra-axial fluid accumulation. Normal flow voids within the major intracranial circulation suggesting patency by spin echo criteria. Normal sella turcica, pituitary gland, infundibular stalk, optic chiasm and hypothalamus. Normal tectal plate and pineal gland. Normal midbrain, nikolas and medulla. Normal cerebellum. Normal basal cisterns. Normal bilateral temporal bones. Normal bilateral internal auditory canals. No demonstrated orbital abnormality, within the constraints of a routine brain study. Normal visualized paranasal sinuses. Normal calvarium and skull base. Normal visualized soft tissue structures. Normal visualized upper cervical spine. MRI/Brain without Contrast IMPRESSION: Normal unenhanced MRI of the brain. Electronically Signed: Iam Rangel MD at 9:33 EDT ,
== END | disposition home or self-care (01) ==
LOC: MRI 10:09
PROVIDERS: PCP Family Medicine; Referring Provider Psychiatry & Neurology Neurology; Visit Provider Psychiatry & Neurology Neurology
DX: F03.90 Unspecified dementia, unspecified severity, without behavioral disturbance, psychotic disturbance, mood disturbance, and anxiety (principal)
CPT/HCPCS: 70551

== ENCOUNTER 2024-05-29 16:50 | Emergency (ER) | payer MEDICARE, SELFPAY ==
[2020-01-05 11:37] VITALS: BMI 34.5
[2024-05-29] VITALS (7 sets, daily range): BP systolic 146–170; BP diastolic 73–93; PULSE 67–78; RESP 15–18; TEMP 36.8–36.9; O2SAT 95–98; BMI 31.3
--- NOTE | 2024-05-29 17:21 | CT_ITS ---
EXAM: CT ANGIOGRAPHY HEAD AND NECK WITH INTRAVENOUS CONTRAST CLINICAL INDICATION: headache, confusion TECHNIQUE: [place]/head and neck CT angiography protocol performed with intravenous contrast. This CT exam was performed using one or more of the following dose reduction techniques: automated exposure control, adjustment of the mA and/or kV according to patient size, and/or use of iterative reconstruction technique. MIP reconstructed images were created and reviewed. CONTRAST: IV 100mL [id number]-370 RADIATION DOSE: CTDIvol = 31 mGy, DLP = 1530.31 mGy-cm. COMPARISON: MRI brain January 08, 2024 was reported normal. FINDINGS: HEAD: UNENHANCED CT: Minimal cerebral volume loss. Mild right vertebral and moderate bilateral intracranial carotid calcifications. Right nasal septal deviation and left james bullosa. Slight mucosal thickening and anterior right ethmoid air cell. Unremarkable orbits. RIGHT ANTERIOR CEREBRAL ARTERY: Unremarkable. No occlusion or significant stenosis. Anterior communicating artery is present. No aneurysm. RIGHT MIDDLE CEREBRAL ARTERY: Unremarkable. No occlusion or significant stenosis. No aneurysm. RIGHT POSTERIOR CEREBRAL ARTERY: Unremarkable. No occlusion or significant stenosis. No aneurysm. RIGHT INTRACRANIAL INTERNAL CAROTID ARTERY: Minimal calcifications. No significant stenosis. No dissection or occlusion. RIGHT INTRACRANIAL VERTEBRAL ARTERY: Unremarkable. No significant stenosis. No dissection or occlusion. LEFT ANTERIOR CEREBRAL ARTERY: Unremarkable. No occlusion or significant stenosis. No aneurysm. LEFT MIDDLE CEREBRAL ARTERY: Unremarkable. No occlusion or significant stenosis. No aneurysm. LEFT POSTERIOR CEREBRAL ARTERY: Predominantly supplied by origin from the ICA. Is a tiny right P1 segment. No occlusion or significant stenosis. No aneurysm. LEFT INTRACRANIAL INTERNAL CAROTID ARTERY: Mild calcifications of cavernous carotid. No significant stenosis. No dissection or occlusion. LEFT INTRACRANIAL VERTEBRAL ARTERY: Unremarkable. No significant stenosis. No dissection or occlusion. BASILAR ARTERY: Unremarkable. No occlusion or significant stenosis. No aneurysm. OTHER VASCULATURE: No vascular malformation. Patent deep veins and dural venous sinuses. NECK: RIGHT COMMON CAROTID ARTERY: Unremarkable. No significant stenosis. No dissection or occlusion. RIGHT EXTRACRANIAL INTERNAL CAROTID ARTERY: Coarse calcified plaque minimally narrowing the carotid bulb and moderately narrowing the right ICA origin, mild apparent 30% stenosis. No significant stenosis. No dissection or occlusion. RIGHT EXTERNAL CAROTID ARTERY: Unremarkable. No occlusion. RIGHT EXTRACRANIAL VERTEBRAL ARTERY: Unremarkable. No significant stenosis. No dissection or occlusion. LEFT COMMON CAROTID ARTERY: Unremarkable. No significant stenosis. No dissection or occlusion. LEFT EXTRACRANIAL INTERNAL CAROTID ARTERY: Mild predominantly calcified plaque involving the proximal 1.1 cm. Minimal narrowing. No significant stenosis. No dissection or occlusion. LEFT EXTERNAL CAROTID ARTERY: Unremarkable. No occlusion. LEFT EXTRACRANIAL VERTEBRAL ARTERY: Unremarkable. No significant stenosis. No dissection or occlusion. ARCH-GREAT VESSELS: Minimal atherosclerotic calcifications of the arch, it is not fully included. No occlusion or significant stenosis. LUNG APICES: There is a large collection of cysts-fibrosis involving the left lung apex. No apical nodules. HEAD and NECK: BONES/JOINTS: Straightening of the usual lordotic curvature. Moderate-marked disc space narrowing at C3-4 and C6-C7-T1. Minimal retrolisthesis of C3 appears likely chronic. Mild canal narrowing at C3-4 due to combined degenerative change, 1 cm in the midline. No discrete lytic or blastic abnormalities. Mild left proximal C3-4, right C5-6, right greater than left C6-7 neural foraminal stenosis. SOFT TISSUES: Unremarkable. CAROTID STENOSIS REFERENCE USING NASCET CRITERIA: % ICA stenosis = (1 - narrowest ICA diameter/diameter of distal cervical ICA) x 100. Mild - <50% stenosis. Moderate - 50-69% stenosis. Severe - 70-94% stenosis. Near occlusion - 95-99% stenosis. Occluded - 100% stenosis. CT/CTA Head AND Neck W/ Contrast IMPRESSION: No high-grade stenosis or large vessel occlusion. Estimated mild 30% percent right cervical ICA stenosis. Mild intracranial carotid calcifications. Degenerative spine changes. Chronic apical lung changes. Electronically Signed: Farrah Roth MD at 20:32 EST ,
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
[2024-05-29 17:42] LABS: Absolute Lymphocyte Count 2.53 X10^3/uL (0.83-4.51); Absolute Neutrophil Count 4.4 X10^3/uL (2.0-7.7); Basophil# 0.05 X10^3/uL; Basophil% 0.6 % (0-1); Eosinophil# 0.14 X10^3/uL; Eosinophils% 1.8 % (0-5); Hematocrit 39.3 % (40-54); Hemoglobin 13.2 g/dL (13.0-16.5); Lymphocyte # 2.53 X10^3/ul (0.83-4.51); Mean Corp Hgb Conc 33.6 g/dL (32-36); Mean Corpuscular Hgb 32.1 pg (27.0-32.0); Mean Corpuscular Volume 95.6 fL (80-94); Mean Platelet Vol. 9.5 fl (6.2-12.0); Monocyte# 0.72 X10^3/uL; Monocyte% 9.1 % (0-10); NRBC Flagged by Analyzer 0 % (0-5); Neutrophil % 55.6 % (47-70); Platelet Count 195 K/mm3 (150-450); RBC Distribution Width CV 12.5 % (11.6-14.6); RBC Distribution Width SD 43.4 fl (35.1-43.9); Red Blood Count 4.11 M/mm3 (4.6-6.2); White Blood Count 7.9 K/mm3 (4.4-11.0)
--- NOTE | 2024-05-29 17:52 | EKG12_ITS ---
Test Reason : CONFUSION Blood Pressure : */* mmHG Vent. Rate : 78 BPM Atrial Rate : 78 BPM P-R Int : 136 ms QRS Dur : 102 ms QT Int : 408 ms P-R-T Axes : 45 -38 57 degrees QTcB Int : 465 ms Normal sinus rhythm Left axis deviation Abnormal ECG Confirmed by RAGINI NAZARIO, JAMES ([id number]), science editor ROBERTO RAHMAN ([id number]) on 05/30/2024 8:23:43 AM Referred By: Confirmed By: JAMES EID MD
[2024-05-29 17:55] LABS: Anion Gap 2 (5-15); BUN 23 mg/dL (7-18); Calcium,Total 9.1 mg/dL (8.5-10.1); Chloride 109 mmol/L (98-107); Creatinine, Serum 1.28 mg/dL (0.70-1.30); EST Glomerular Filtration Rate 58 mL/min (>60); Est Glom Filt Rate - Afr Amer 71 mL/min (>60); Estimated Creatinine Clearance 53.42 ml/min; Glucose 102 mg/dL (74-106); Potassium 4.1 mmol/L (3.5-5.1); Sodium Level 141 mmol/L (136-145)
[2024-05-29] MEDS: Acetaminophen 325 MG Tablet 650 MG PO (18:25)
[2024-05-29] MEDS: Metoclopramide 10 MG/2 ML Vial 5 MG IV ×2 (18:26→21:11)
[2024-05-29 18:36] LABS: AST(SGOT) 18 U/L (15-37); Alanine Aminotransfer ALT/SGPT 23 U/L (16-61); Albumin, Serum 3.6 g/dL (3.2-5.0); Alkaline Phosphatase 47 U/L (45-117); Bilirubin, Direct 0.11 mg/dL (0.00-0.30); Globulin 2.9 g/dL (2.2-4.2); Protein, Total 6.5 g/dL (6.4-8.2)
--- NOTE | 2024-05-29 18:45 | RAD_ITS ---
EXAM: XR CHEST, 2 VIEWS CLINICAL INDICATION: confusion, weakness TECHNIQUE: Frontal and lateral views of the chest. COMPARISON: August 23, 2023. CTA head and neck including the lung apices today showed cystic replacement in some of the left lung apex. FINDINGS: LUNGS AND PLEURAL SPACES: Cluster of small lucencies with mildly thick margins in the left upper lateral lung, mildly increased from August 23, 2023. No pneumothorax. No evidence of discrete nodules, infiltrates or effusions. HEART: Apparent stents are seen overlying the left heart. MEDIASTINUM: Central airways and mediastinal contour are unremarkable. BONES/JOINTS: Postoperative change of the left humeral head again noted. SOFT TISSUES: Surgical clips in the left neck are again noted. UPPER ABDOMEN: Cholecystectomy clips. RAD/Chest PA and Lateral IMPRESSION: 1. Mild increased apparent cystic-fibrotic changes in the left lung apex compared to July 2023. 2. Multifocal postoperative changes. Electronically Signed: Farrah Roth MD at 21:29 EST ,
[2024-05-29 19:54] LABS: Bacteria 0 SEEN /hpf (None Seen); Mucous, Urine 0 SEEN /hpf (<or=2+); Red Blood Cells-Urine 0 SEEN /hpf (0-5); Squamous Epithelial Cells - UA 0 SEEN /hpf (0-5); White Blood Cells 0 SEEN /hpf (0-5)
[2024-05-29 19:58] LABS: Color, Urine Yellow (Yellow); Glucose, Dipstick Normal (Normal); Ketone-Dipstick Negative (Negative); Leukocyte Esterase-Dipstick Negative /ul (Negative); Nitrite-Dipstick Negative (Negative); Occult Blood-Urine Negative /ul (Negative); Protein-Dipstick Negative (Negative); Specific Gravity, Urine 1.005 (1.002-1.030); Urine Bilirubin Dipstick Negative (Negative); Urine Clarity Clear (Clear); Urine Urobilinogen Normal (Normal)
[2024-05-29] MEDS: 0.9% Normal Saline (500mL Bag) 500 ML 999 ML IV (21:11)
[2024-05-29] MEDS: dexAMETHasone 10 MG/ML Vial 8 MG IV (21:11)
[2024-05-29] MEDS: Ketorolac 15 MG/ML Vial IV (21:11)
== END 2024-05-29 22:11 | disposition home or self-care (01) ==
PROVIDERS: Physician Assistant; Emergency Provider Emergency Medicine; PCP Family Medicine; Visit Provider Emergency Medicine
DX: G43.909 Migraine, unspecified, not intractable, without status migrainosus (principal); F03.90 Unspecified dementia, unspecified severity, without behavioral disturbance, psychotic disturbance, mood disturbance, and anxiety; N18.30 Chronic kidney disease, stage 3 unspecified; R41.0 Disorientation, unspecified; E78.5 Hyperlipidemia, unspecified; I25.10 Atherosclerotic heart disease of native coronary artery without angina pectoris; I12.9 Hypertensive chronic kidney disease with stage 1 through stage 4 chronic kidney disease, or unspecified chronic kidney disease; Z95.5 Presence of coronary angioplasty implant and graft; K21.9 Gastro-esophageal reflux disease without esophagitis; Z87.820 Personal history of traumatic brain injury
CPT/HCPCS: 70496; 70498; 71046; 80048; 80076; 81001; 85025; 93005; 96361; 96374; 96375; 96376; 99283; Q9967; A4216

== ENCOUNTER → 2024-07-25 | Outpatient (CLI) | payer MEDICARE, SELFPAY ==
[2020-01-05 11:37] VITALS: BMI 34.5
[2024-07-25 15:36] LABS: Absolute Neutrophil Count 4.7 X10^3/uL (2.0-7.7); Basophil# 0.05 X10^3/uL; Basophil% 0.6 % (0-1); Eosinophil# 0.17 X10^3/uL; Hematocrit 40.4 % (40-54); Hemoglobin 13.9 g/dL (13.0-16.5); Lymphocyte % 31.3 % (19-41); Mean Corp Hgb Conc 34.4 g/dL (32-36); Mean Corpuscular Hgb 31.8 pg (27.0-32.0); Mean Corpuscular Volume 92.4 fL (80-94); Mean Platelet Vol. 9.6 fl (6.2-12.0); Monocyte# 0.76 X10^3/uL; Monocyte% 9.2 % (0-10); NRBC Flagged by Analyzer 0 % (0-5); Neutrophil # 4.65 X10^3/uL (2.7-7.7); Neutrophil % 56.1 % (47-70); Platelet Count 197 K/mm3 (150-450); RBC Distribution Width CV 12.3 % (11.6-14.6); RBC Distribution Width SD 42.1 fl (35.1-43.9); Red Blood Count 4.37 M/mm3 (4.6-6.2); White Blood Count 8.3 K/mm3 (4.4-11.0)
[2024-07-25 18:14] LABS: Prothrombin Time (Protime)PT. 13.2 SECONDS (11.7-14.9)
[2024-07-25 19:35] LABS: Partial Thromboplast Time 23.9 Seconds (24.1-36.2)
[2024-07-25 22:45] LABS: Troponin T High Sensitivity 15 ng/L (<=22)
== END | disposition home or self-care (01) ==
LOC: LAB 14:44
PROVIDERS: PCP Family Medicine; Referring Provider Family Medicine; Visit Provider Family Medicine
DX: R07.9 Chest pain, unspecified (principal); R23.3 Spontaneous ecchymoses
CPT/HCPCS: 36415; 84484; 85025; 85610; 85730

== ENCOUNTER → 2025-01-06 | Outpatient (CLI) | payer MEDICARE, SELFPAY ==
[2020-01-05 11:37] VITALS: BMI 34.5
[2025-01-06 16:06] LABS: PSA,Total - Annual Screen 0.03 ng/mL (0.02-4.00); Uric Acid 4.4 mg/dL (3.5-7.2)
== END | disposition home or self-care (01) ==
LOC: BFHLAB 11:47
PROVIDERS: PCP Family Medicine; Visit Provider Family Medicine
DX: Z12.5 Encounter for screening for malignant neoplasm of prostate (principal); M10.9 Gout, unspecified
CPT/HCPCS: 36415; 84153; 84550; G0103

== ENCOUNTER → 2025-04-21 | Outpatient (CLI) | payer MEDICARE, SELFPAY ==
[2020-01-05 11:37] VITALS: BMI 34.5
--- NOTE | 2025-04-21 15:45 | RAD_ITS ---
PROCEDURE: THORACIC SPINE 3 VIEWS 04/21/2025 REASON FOR EXAM: Degenerative disc disease TECHNIQUE: Procedure Code: RADSPT Modality: DX Procedure: THORACIC SPINE 3 VIEWS COMPARISON: None available. FINDINGS: Vertebrae: The vertebral body heights are overall maintained. Anterior osteophytes. Discs: Mild intervertebral disc space height loss. Alignment: No significant spondylolisthesis. Other: Unremarkable visualized lungs. Surgical clips in the left supraclavicular/neck region. Nonspecific soft tissue calcification in the prevertebral soft tissues in the lower cervical spine. RAD/Thoracic Spine 3 Views IMPRESSION: Degenerative changes in thoracic spine. Reading Location: [id number]
== END | disposition home or self-care (01) ==
LOC: RAD 15:44
PROVIDERS: PCP Family Medicine; Referring Provider Anesthesiology; Visit Provider Anesthesiology
DX: M51.34 Other intervertebral disc degeneration, thoracic region (principal)
CPT/HCPCS: 72072

== ENCOUNTER → 2025-05-12 | Outpatient (CLI) | payer MEDICARE, SELFPAY ==
[2020-01-05 11:37] VITALS: BMI 34.5
--- NOTE | 2025-05-12 15:41 | MRI_ITS ---
PROCEDURE: SPINE THORACIC (ROUTINE) 05/12/2025 REASON FOR EXAM: Clinical history of thoracic radiculopathy TECHNIQUE: Procedure Code: MRISPT Modality: MR Procedure: SPINE THORACIC (ROUTINE) Multiplanar and multisequence images were obtained. CONTRAST: None. COMPARISON: None available. FINDINGS: Motion artifact from respiration degrades some images. The normal thoracic kyphosis is maintained. The thoracic vertebral bodies are normal in height. The thoracic vertebral bodies are normal in alignment. The thoracic bone marrow signal is within normal limits. Multiple small Schmorl's nodes throughout the thoracic spine. Focal cord T2 hyperintensity at the T9-T10 (series 15, image 20) and T10 (series 15, image 18) levels likely reflects artifact. There is no correlate on the sagittal T2/STIR sequences. There is no additional evidence of thoracic spinal cord signal abnormality. No high-grade spinal canal or neural foraminal stenosis in the thoracic spine. MRI/Spine Thoracic (Routine) IMPRESSION: 1. Motion artifact from respiration limits evaluation. 2. Focal T2 hyperintense signal at T9-T10 and T10 levels likely artifactual. 3. No high-grade spinal canal or neural foraminal stenosis and thoracic spine. Reading Location: [facility]
--- OUTSIDE RECORDS SUMMARY | 2025-05-12 20:32 | XMS RPT_ITS | CCD ---
Author Organization [facility] Care Team Providers Care Network Technology Instructor Name Role Phone DR AFUA VELEZ DO A Primary Care Physician Dr. Afua Velez Primary Care Provider [phone] Dr. Afua Velez Referring Provider Dr. Carlos Rojas Attending Provider Yani Mendoza MD, Hannah Unavailable Afua Velez DO Primary Care Provider Dr. Afua Velez Primary Care Provider Dr. Thanh Prajapati Attending Provider Dr. Nabil Salcedo Attending Provider Dr. Van Umaña Emergency Provider Dr. Rosey England Admit Provider Dr. Rosey England Other Provider Dr. Nabil Salcedo Other Provider Dr. Stevan Max Attending Provider Dr. Stevan Max Other Provider Dr. Afua Velez Primary Care Provider Dr. Van Umaña Emergency Provider Dr. Chaparro Johns Attending Provider Yani Mendoza MD, Hannah Unavailable Afua Velez DO Primary Care Provider Dr. Afua Velez Primary Care Provider Dr. Van Umaña Emergency Provider Dr. Chaparro Johns Attending Provider Emmy, Dr. Patrick Attending Provider Emmy, Dr. Patrick Referring Provider Dr. Chaparro Johns Admit Provider Dr. Chaparro Johns Other Provider Dr. Stevan Max Attending Provider Dr. Stevan Max Other Provider Dr. Afua Velez Referring Provider Neal ALEXANDER, PA Mary Weaver Attending Provider Dr. Afua Velez Primary Care Provider Dr. Afua Velez Referring Provider Roof DANCE THERAPIST, DANCE THERAPIST-C Sebastian Longoria Attending Provider Roof DANCE THERAPIST, DANCE THERAPIST-C Sebastian Longoria Other Provider Dr. Dirk Emerson Referring Provider Dr. Dirk Emerson Other Provider Dr. Thanh Prajapati Attending Provider Chidi DANCE THERAPIST, DANCE THERAPIST-C Alondra Attending Provider Dr. Afua Velez Primary Care Provider Dr. Afua Velez Referring Provider Roof DANCE THERAPIST, DANCE THERAPIST-C Sebastian Longoria Attending Provider Roof DANCE THERAPIST, DANCE THERAPIST-C Sebastian Longoria Other Provider Dr. Dirk Emerson Referring Provider Dr. Dirk Emerson Other Provider Dr. Thanh Prajapati Attending Provider Chidi MUÑIZ, DANCE THERAPISTAbdielC Alondra Attending Provider Dr. Alethea Jackson Emergency Provider Jimmy, Dr. Mechelle Naylor Admit Provider Jimmy, Dr. Mechelle Naylor Other Provider Dr. Saleem Rodriguez Other Provider Dr. Fabio Tovar Attending Provider Unavailable Dr. Fabio Tovar Other Provider Unavailable Dr. Saleem Rodriguez Attending Provider Crystal, Dr. Gonzalez Attending Provider Dr. Carlos Rojas Referring Provider Dr. Melly Leong Other Provider Dr. Melly Leong Attending Provider Jimmy, Dr. Mechelle Naylor Referring Provider Dr. Teresa Roberts Emergency Provider Dr. Stevan Max Admit Provider Dr. Stevan Max Other Provider Dr. Darnell Booth Attending Provider Dr. Darnell Booth Other Provider Dr. Stevan Max Attending Provider ROSIE MERRILL, DR AFUA Lund Primary Care Physician De Jesus PA, PA Mary Weaver Referring Provider ROSIE MERRILL, DR AFUA Lund Primary Care Rachel Diamond MD, DR RODRIGUEZ Attending Rachel Orellana DO, DR AFUA Lund Primary Care Rachel Diamond MD, DR RODRIGUEZ Attending Lissab amparo VELEZ DO, DR AFUA Lund Primary Care Rachel Diamond MD, DR RODRIGUEZ Attending Rachel Orellana DO, DR AFUA Lund Primary Care Unavailab Zoe NAZARIO, CASE Junior Attending Unavailable Rosie MERRILL, Afua Lund Primary Care Provider AFUA VELEZ Primary Care Unavailable SALEEM WALTER Attending Unavailable STANLEY SANDOVAL Referring Unavailable AMANDEEP NAZARIO, DR RODRIGUEZ Attending Unavailab amparo VELEZ DO, DR AFUA Lund Primary Care Unavailab amparo Velez DO, Dr. Estevez Primary Care Provider He MERRILL, Dr. Rider Attending Provider He DO, Dr. Rider Emergency Provider Rosie DO, Dr. Estevez Attending Provider Rosie DO, Dr. Estevez Referring Provider [phone] Rosie DO, Dr. Estevez Primary Care Provider Rosie MERRILL, Dr. Estevez Attending Provider [phone] Rosie, Afua Primary Care Unavailable Rosie, Afua Attending Unavailable Rosie, Afua Referring Unavailable Rosie, Afua Primary Care Unavailable Rosie, Afua Attending Unavailable Tereso Cutler Attending Unavailable Rosie, Afua Primary Care Unavailable ROSIE, AFUA A Primary Care Unavailable CARLOTTA CREWS Attending Unavailable ROSIE, AFUA Lund Primary Care Unavailable ROSIE, AFUA A Primary Care Unavailable ROSIE, AFUA A Referring Unavailable ROSIE, AFUA A Primary Care Unavailable Allergies Allergy Classification Reported Allergen(s) Allergy Type Date of Onset Reaction(s) Facility (20 sources) traMADol; Translations: [tramadol] Drug Allergy 0 Other: See Comments [facility] (17 sources) Mold Extract; Translations: [MOLD] Drug Allergy 8 Other: See Comments [facility] (12 sources) Isosorbide; Translations: [isosorbide] Drug Allergy 4 Other: See Comments, Intolerance, Unknown [facility] (3 sources) rosuvastatin; Translations: [ROSUVASTATIN] Drug Allergy 5 GI Upset [facility] (1 source) Isosorbide Drug Allergy 5 [facility] (1 source) Mold Extract Drug Allergy 5 [facility] (1 source) traMADol Drug Allergy 5 [facility] Medications Current Medications Medication Drug Class(es) Dates Sig (Normalized) Sig (Original) acetaminophen 500 mg oral tablet (20 sources) Start: 11-15-2020 take 2 tablets by mouth every six hours as needed for pain Acetaminophen 500 mg Tablet Active 1000 mg PO EVERY 6 HOURS NEEDED as needed for Pain Score 1-3 0 0 November 15, 2020 12:00am Start: 11-15-2020 take 1000 mg by mout h every six hours as needed Acetaminophen Active 1000 MG PO EVERY 6 HOURS NEEDED 0 November 15, 2020 12:00am Start: 11-09-2020 End: 11-15-2020 Acetaminophen (Tylenol) 325 mg Tablet Discontinued 650 mg PO EVERY 6 HOURS NEEDED as needed for Pain Score 1-10/Temp > 100.7 F 0 0 November 09, 2020 12:00am November 15, 2020 7:01pm Start: 11-09-2020 End: 11-15-2020 take 2 tablets by mouth every six hours as needed Acetaminophen (Tylenol) 325 mg Tablet Discontinued 650 MG PO EVERY 6 HOURS NEEDED 0 November 09, 2020 12:00am November 15, 2020 7:01pm Start: 01-25-2016 End: 04-13-2018 take 2 tablets by mouth every eight hours Acetaminophen (Tylenol) 325 MG tablet Discontinued 650 mg PO EVERY 8 HOURS 0 January 25, 2016 12:00am April 13, 2018 2:02pm acetaminophen 325 mg / oxyCODONE hydrochloride 5 mg oral tablet (20 sources) Opioid Agonist Start: 10-10-2023 take 1 tablet by mouth every six hours as needed for pain Oxycodone-Acetaminophen (Percocet) 5-325 mg tablet Active 1 {tbl} PO EVERY 6 HOURS as needed for pain 14 4 0 October 10, 2023 Contusion of knee Contusion of unspecified knee, initial encounter Start: 04-19-2020 End: 04-22-2020 Oxycodone-Acetaminophen 1 TA BLET tablet Discontinued 1 {tbl} PO EVERY 6 HOURS NEEDED as needed for Pain 12 3 0 April 19, 2020 April 21, 2020 1:00am April 22, 2020 1:03am Back pain Dorsalgia, unspecified Start: 04-19-2020 End: 04-22-2020 take 1 tablet by mouth every six hours as needed Oxycodone-Acetaminophen Discontinued 1 TABLET PO EVERY 6 HOURS NEEDED 12 April 19, 2020 April 22, 2020 1:03am Start: 01-28-2019 End: 01-28-2019 Oxycodone-Acetaminophen 1 EA CH tablet Discontinued 1 {tbl} PO EVERY 6 HOURS NEEDED as needed for Pain 14 January 28, 2019 January 28, 2019 12:00am January 28, 2019 12:51pm Personal history of urinary calculi Start: 01-28-2019 End: 01-28-2019 Oxycodone-Acetaminophen 1 EA CH tablet Discontinued 1 {tbl} PO EVERY 6 HOURS NEEDED as needed for Pain 14 January 28, 2019 January 28, 2019 12:00am January 28, 2019 12:51pm Start: 01-28-2019 End: 01-28-2019 take 1 tablet by mouth every six hours as needed Oxycodone-Acetaminophen Discontinued 1 TABLET PO EVERY 6 HOURS NEEDED 14 January 28, 2019 January 28, 2019 12:51pm Start: 01-28-2019 End: 01-28-2019 take 1 tablet by mouth every six hours as needed Oxycodone-Acetaminophen Discontinued 1 TABLET PO EVERY 6 HOURS NEEDED 14 January 28, 2019 January 28, 2019 12:51pm Start: 01-28-2019 End: 01-28-2019 take 1 tablet by mouth every six hours as needed Oxycodone-Acetaminophen Discontinued 1 TABLET PO EVERY 6 HOURS NEEDED 14 January 28, 2019 January 28, 2019 12:51pm Start: 01-28-2019 End: 01-28-2019 take 1 tablet by mouth every six hours as needed Oxycodone-Acetaminophen Discontinued 1 TABLET PO EVERY 6 HOURS NEEDED 14 January 28, 2019 January 28, 2019 11:51am Start: 01-28-2019 End: 01-28-2019 take 1 tablet by mouth every six hours as needed Oxycodone-Acetaminophen Discontinued 1 TABLET PO EVERY 6 HOURS NEEDED 14 January 28, 2019 January 28, 2019 11:51am Start: 01-28-2019 End: 01-28-2019 take 1 tablet by mouth every six hours as needed Oxycodone-Acetaminophen Discontinued 1 TABLET PO EVERY 6 HOURS NEEDED 14 January 28, 2019 January 28, 2019 11:51am Start: 01-28-2019 End: 01-28-2019 take 1 tablet by mouth every six hours as needed Oxycodone-Acetaminophen Discontinued 1 TABLET PO EVERY 6 HOURS NEEDED 14 January 28, 2019 January 28, 2019 12:51pm Start: 01-28-2019 End: 01-28-2019 take 1 tablet by mouth every six hours as needed Oxycodone-Acetaminophen Discontinued 1 TABLET PO EVERY 6 HOURS NEEDED 14 January 28, 2019 January 28, 2019 12:51pm Start: 01-28-2019 End: 01-28-2019 take 1 tablet by mouth every six hours as needed Oxycodone-Acetaminophen Discontinued 1 TABLET PO EVERY 6 HOURS NEEDED 14 January 28, 2019 January 28, 2019 12:51pm Start: 01-28-2019 End: 01-28-2019 take 1 tablet by mouth every six hours as needed Oxycodone-Acetaminophen Discontinued 1 TABLET PO EVERY 6 HOURS NEEDED 14 January 28, 2019 January 28, 2019 12:51pm Start: 01-24-2019 End: 01-28-2019 take 1 tablet by mouth every six hours as needed Oxycodone-Acetaminophen Discontinued 1 TABLET PO EVERY 6 HOURS NEEDED 14 January 24, 2019 3:38pm January 28, 2019 12:51pm Start: 09-26-2018 End: 09-29-2018 Oxycodone-Acetaminophen 1 TA BLET tablet Discontinued 1 {tbl} PO EVERY 6 HOURS NEEDED as needed for Pain 12 3 September 26, 2018 12:00am September 28, 2018 12:00am September 29, 2018 12:08am Calculus of left ureter Calculus of ureter Start: 09-26-2018 End: 09-29-2018 take 1 tablet by mouth every six hours as needed Oxycodone-Acetaminophen Discontinued 1 TABLET PO EVERY 6 HOURS NEEDED 12 September 26, 2018 12:00am September 29, 2018 12:08am Acetylcysteine (13 sources) Antidote, Mucolytic, Antidote for Acetaminophen Overdose Start: 11-07-2020 Acetylcysteine (B ulk) Active EACH November 07, 2020 2:59am Start: 01-27-2019 take 1 capsule by mo ut once daily acetylcysteine (O-YZACSG-Y-CYSTEINE MISC) Take 1 capsule by mouth once daily. 01/27/2019 Active Start: 01-27-2019 take 1 capsule by mo ut once daily acetylcysteine (C-NISHDE-C-CYSTEINE MISC) Take 1 capsule by mouth once daily. 0 01/27/2019 Active Comment on above: Take 1 capsule by [facility] once daily. allopurinol 100 mg oral tablet (20 sources) Xanthine Oxidase Inhibitor Start: 08-31-2023 allopurinol 100 mg oral tablet Dose : 100 mg = 1 tab(s), Oral, BID, # 180 tab(s), 0 Refill(s) Start Date: 08/31/23 Status: Ordered Start: 11-07-2020 take 50 mg by mouth once daily Allopurinol Active 50 MG PO DAILY November 07, 2020 2:59am Start: 11-07-2020 take 2 tablets by [facility] at bedtime Allopurinol 100 mg Tablet Active 200 mg PO AT BEDTIME November 07, 2020 12:00am gout Start: 11-07-2020 take 200 mg by mouth at bedtim e Allopurinol Active 200 MG PO AT BEDTIME November 07, 2020 12:00am Start: 11-07-2020 take 100 mg by mouth twice josue ly Allopurinol Active 100 MG PO TWICE A DAY November 06, 2020 11:00pm Start: 11-02-2020 take 0.5 tablet by [facility] once daily allopurinol (ZYLOPRIM) 100 mg tablet Indications: Pseudogout Take 0.5 tablets by mouth once daily. For gout. 30 tablet 4 11/02/2020 Active Comment on above: Take 0.5 tablets by mouth once daily. For gout. ALPRAZolam 0.5 mg oral tablet (20 sources) Benzodiazepine Start: take 1 tablet by mouth every eight hours as needed for anxiety and anxiety ALPRAZolam (XANAX) 0.5 mg tablet Indications: Anxiety Take 1 tablet by mouth three times daily as needed for anxiety for up to 90 days. 60 tablet 2 11/25/2020 Active Start: 11-09-2020 take 1 tablet by rey once daily at bedtime Alprazolam (Xanax) 0.5 mg tablet Active 0.25 mg PO .COMPLEX November 09, 2020 8:05pm anxiety 0.25 mg orally morning and afternoon; 0.5 mg orally qhs Start: 11-07-2020 End: 11-09-2020 take 1 tablet by mouth twice daily Alprazolam (Xanax) 0.5 mg Tablet Discontinued 0.5 mg PO TWICE A DAY 4 0 November 09, 2020 11:55am November 09, 2020 8:05pm Start: 06-19-2015 End: 12-31-2015 take 1 tablet by mouth twice daily as needed for anxiety Alprazolam 0.5 MG tablet Discontinued 0.5 mg PO TWICE DAILY NEEDED as needed for ANXIETY 60 0 June 19, 2015 1:00am December 31, 2015 1:15pm Start: 10-14-2010 End: 06-19-2015 take 1 tablet by mouth three times daily as needed for anxiety Alprazolam 0.5 MG tablet Discontinued 0.5 mg PO 3 TIMES DAILY NEEDED as needed for Anxiety June 17, 2015 1:00am June 19, 2015 12:07pm Comment on above: Take 1 tablet by rey th three times daily as needed for anxiety for up to 90 days. aluminum hydroxide 80 mg/ml / magnesium hydroxide 80 mg/ml / simethicone 8 mg/ml oral suspension (2 sources) Start: 11-10-19 take 1 mL by mouth every six hours as needed Alum-Mag Hydroxide-Simeth (Mag-Al Plus Extra Strength) 400-400-40 mg/5 mL Suspension Active 15 ML PO EVERY 6 HOURS NEEDED 0 November 09, 2020 11:51am ARIPiprazole 2 mg oral tablet (9 sources) Atypical Antipsychotic Start: 05-04-20 take 1 tablet by mouth at bedtime Aripiprazole 2 mg tablet Active 2 mg PO AT BEDTIME October 15, 2023 12:00am ascorbic acid 500 mg oral tablet (2 sources) Vitamin C Start: 11-08-19 21 take 1 tablet by mouth once daily Ascorbic Acid (Vitamin C) (Vitamin C) 500 mg Tablet Active 500 MG PO DAILY November 07, 2020 2:59am aspirin 81 mg chewable tablet (20 sources) Platelet Aggregation Inhibitor, Nonsteroidal Anti-inflammatory Drug Start: 11-08-19 take 1 tablet by mouth once daily Aspirin 81 mg Tablet,Chewable Active 81 mg PO DAILY November 07, 2020 12:00am thinner Start: 09-17-2020 aspirin 81 mg oral delayed release tablet Dose : 81 mg = 1 tab(s), Oral, Daily, 0 Refill(s) Start Date: 09/17/20 Status: Ordered Start: 09-17-2020 aspirin 81 mg oral delayed release tablet Dose : 81 mg = 1 tab(s), Oral, Daily, 0 Refill(s) Start Date: 09/17/20 Status: Ordered Start: 04-15-2018 End: 08-10-2020 take 1 tablet by mouth once daily at mealtime Aspirin 81 MG tablet Discontinued 81 mg PO DAILY WITH MEALS April 15, 2018 1:00am August 10, 2020 6:10pm Comment on above: Take 81 mg by mouth one time only. BIPAP (11 sources) Start: 04-06-2016 BIPAP Indications: JEFFERSON (obstructive sleep apnea) Pressure change: Bilevel PAP 18/14 cmH2O. Dx: JEFFERSON 1 Device 0 04/06/2016 Active Comment on above: Pressure change: Josef evel PAP 18/14 cmH2O. Dx: JEFFERSON cholecalciferol 1.25 mg oral capsule (20 sources) Vitamin D Start: 08-21-2023 Cholecalciferol (Vitamin D3) 1,250 mcg (50,000 unit) capsule Active 1250 ug PO August 21, 2023 12:00am SUPPLEMENT Start: 11-07-2020 End: 08-21-2023 Cholecalciferol (Vitamin D3) 125 mcg (5,000 unit) Tablet Discontinued [id number] U PO November 07, 2020 12:00am August 21, 2023 10:13am supplement Start: 11-07-2020 take 125 ug by mouth once daily Cholecalciferol (Vitamin D3) Active 125 MCG PO DAILY November 07, 2020 12:00am Start: 12-26-2019 take [address] [facility] every week cholecalciferol, Vitamin D3, (VITAMIN D3) 1,250 mcg (50,000 unit) cap capsule Take 1 capsule by mouth one time a week. 13 capsule 3 12/26/2019 Active Comment on above: Take [address] [facility] one time a week. clopidogrel 75 mg oral tablet (10 sources) P2Y12 Platelet Inhibitor Start: 4 take 1 tablet by mouth once daily Clopidogrel 75 mg Tablet Active 75 mg PO DAILY 26 04August 08, 2023 12:00am CHOLESTEROL colchicine 0.6 mg oral capsule (20 sources) Start: 1 take 1 capsule by mouth once daily colchicine 0.6 mg capsule Take 1 capsule by mouth once daily. 90 capsule 3 11/16/2020 Active Start: 11-07-2020 End: 08-21-2023 Colchicine (Colcrys) 0.6 mg Tablet Discontinued 0.6 mg PO NEEDED November 07, 2020 12:00am August 21, 2023 10:13am gout Comment on above: Take [address] [facility] once daily. donepezil hydrochloride 5 mg oral tablet (4 sources) Start: 11-14-2023 take 1 tablet by mouth once daily at bedtime Donepezil 10 mg tablet Active 10 mg PO AT BEDTIME 30 5 November 14, 2023 12:00am Begin after completing one month of treatment of donepezil 5mg nightly Start: 11-14-2023 take 1 tablet by mouth at bedt yane Donepezil 5 mg tablet Active 5 mg PO AT BEDTIME 30 0 November 14, 2023 12:00am famotidine 40 mg oral tablet (20 sources) Histamine-2 Receptor Antagonist Start: 05-22-2023 End: 02-04-2024 take 1 tablet by mouth twice daily Famotidine 40 mg tablet Active 40 mg PO TWICE A DAY June 14, 2023 1:00am ACID REFLUX Start: 05-22-2023 take 40 mg by mouth once daily Famotidine Active 40 MG PO DAILY June 14, 2023 12:00am Start: 01-14-2016 End: 01-25-2016 take 1 tablet by mouth once daily Famotidine 20 MG tablet Discontinued 20 mg PO DAILY 7 0 January 14, 2016 12:00am January 25, 2016 8:10am ferrous sulfate 325 mg oral tablet (12 sources) Start: 09-17-2020 ferrous sulfat e 325 mg (65 mg elemental iron) oral tablet Dose : 325 mg = 1 tab(s), Oral, TID, # 270 tab(s), 0 Refill(s) Start Date: 09/17/20 Status: Ordered Start: 08-27-2020 End: 02-04-2024 take 1 tablet by mouth once daily at breakfast ferrous sulfate 325 mg (65 mg iron) tablet Indications: Anemia, unspecified type Take 1 tablet by mouth daily with breakfast. 30 tablet 3 08/27/2020 02/04/2024 Discontinued Comment on above: [facility] finasteride 5 mg oral tablet (20 sources) 5-alpha Reductase Inhibitor Start: 9 take 1 tablet by mouth at bedtime Finasteride 5 mg Tablet Active 5 mg PO AT BEDTIME November 07, 2020 12:00am urine retention Comment on above: Take 1 tablet by rey once daily. Iron (2 sources) Start: 1 iron Active November 07, 2020 2:59am lansoprazole 30 mg delayed release oral capsule (3 sources) Proton Pump Inhibitor Start: 4 End: 4 take 1 capsule by mouth once daily lansoprazole (PREVACID) 30 mg capsule Take 1 capsule by mouth once daily. 30 capsule 2 02/04/2024 Active lisinopril 2.5 mg oral tablet (20 sources) Angiotensin Converting Enzyme Inhibitor Start: 1 take 1 tablet by mouth once daily lisinopril 2.5 mg tablet Take 1 tablet by mouth once daily. 90 tablet 3 10/08/2020 Active Start: 10-20-2010 lisinopril 5 m g oral tablet Dose : 5 mg = 1 tab(s), Oral, qDay, # 90 tab(s), 3 Refill(s), Pharmacy: [id number], 167, cm, 10/17/23 9:29:00 EDT, Height, kg, 10/17/23 9:29:00 EDT, Dosing Weight Start Date: 11/26/23 Status: Ordered Comment on above: Take 1 tablet by rey once daily. Magnesium (2 sources) Start: 11-07-2020 take 250 mg by mouth once daily Magnesium Active 250 MG PO DAILY November 07, 2020 2:59am MEDICATION, NON-DATABASE (12 sources) MEDICATION, NON-DATABASE Alker selzer twice a day Active MEDICATION, NON- DATABASE Take by mouth once daily. Dopa boost Active MEDICATION, NON- DATABASE Alker selzer twice a day 0 Active MEDICATION, NON- DATABASE Take by mouth once daily. Dopa boost 0 Active Comment on above: Alker selzer twice a day Take by mouth once d aily. Dopa boost melatonin 3 mg oral tablet (2 sources) Start: 11-10-19 take 3 mg by mouth at bedtime as needed Melatonin Active 3 MG PO AT BEDTIME NEEDED 0 November 09, 2020 11:51am metoclopramide 10 mg oral tablet (2 sources) Dopamine-2 Receptor Antagonist Start: 05-29-19 take 1 tablet by mouth every six hours as needed for nausea and vomiting Metoclopramide Hcl (Reglan) 10 mg tablet Active 10 mg PO EVERY 6 HOURS as needed for nausea and vomiting 8 0 May 29, 2024 1:00am 24 hr metoprolol succinate 25 mg extended release oral tablet (20 sources) beta-Adrenergic Shreya Start: 10-15-19 24 take 1 tablet by mouth once daily Metoprolol Succinate 25 mg tablet extended release 24 hr Active 25 mg PO DAILY October 15, 2023 12:00am Start: 08-31-2023 metoprolol suc cinate 25 mg oral TABLET extended release Dose : 25 mg = 1 tab(s), Oral, qDay, Do not crush or chew (controlled release), # 30 tab(s), 6 Refill(s), Pharmacy: [id number], 167.6, cm, 08/31/23 10:18:00 EDT, Height, kg, 08/31/23 10:18:00 EDT, Dosing Weight Start Date: 08/31/23 Status: Ordered Start: 08-23-2023 End: 08-23-2023 Metoprolol Tartrate 50 mg ta blet Discontinued 25 mg PO TWICE A DAY August 23, 2023 12:00am August 23, 2023 12:17pm Start: 08-23-2023 End: 08-23-2023 take 25 mg by mouth twice daily Metoprolol Tartrate Di scontinued 25 MG PO TWICE A DAY August 23, 2023 12:00am August 23, 2023 12:17pm Start: 08-08-2023 End: 08-21-2023 take 1 tablet by mouth twice daily Metoprolol Tartrate 50 mg Tablet Discontinued 50 mg PO TWICE A DAY 60 0 August 08, 2023 12:00am August 21, 2023 11:24am Start: 04-26-2023 End: 08-24-2023 take 1 tablet by mouth twice daily Metoprolol Tartrate 25 mg tablet Discontinued 25 mg PO TWICE A DAY August 23, 2023 12:00am August 24, 2023 10:12am BLOOD PRESSURE Start: 08-29-2022 End: 01-11-2023 take 1 tablet by mouth twice daily Metoprolol Tartrate 25 mg tablet Discontinued 25 mg PO TWICE A DAY 60 0 August 29, 2022 12:00am January 11, 2023 11:57am Start: 06-17-2015 End: 04-15-2018 take 1 tablet by mouth twice daily Metoprolol Tartrate 25 MG tablet Discontinued 25 mg PO TWICE A DAY June 17, 2015 1:00am April 15, 2018 11:41am blood pressure Comment on above: Take 25 mg by mouth two times a day. mexiletine hydrochloride 150 mg oral capsule (1 source) Antiarrhythmic Start: 10-17-2023 mexiletine 150 mg oral capsule Dose : 150 mg = 1 cap(s), Oral, q8h, # 270 cap(s), 0 Refill(s), Pharmacy: [id number], 167, cm, 10/17/23 9:29:00 EDT, Height, kg, 10/17/23 9:29:00 EDT, Dosing Weight Start Date: 10/17/23 Status: Ordered nitroglycerin 0.4 mg sublingual tablet (20 sources) Nitrate Vasodilator Start: 11-09-2020 Nitroglycerin Active 0.4 MG SL Q5M 0 November 09, 2020 12:00am Start: 11-20-2019 Nitroglycerin 0.4 mg Tablet, Sublingual Active 0.4 mg SL Q5M as needed for Cardiac/Chest Pain 0 0 November 09, 2020 12:00am Comment on above: Dissolve 1 tablet un philip the tongue as needed for Chest Pain. If no pain relief call 911. ondansetron 4 mg disintegrating oral tablet (20 sources) Serotonin-3 Receptor Antagonist Start: 06-14-2023 Ondansetron 4 mg tablet,disintegrating Active 4 mg PO EVERY 8-12 HOURS as needed for nausea June 14, 2023 1:00am Start: 11-17-2022 ondansetron or ally disintegrating (ZOFRAN ODT) 4 mg disintegrating tablet 11/17/2022 Active Start: 09-18-2020 End: 02-04-2024 Zofran 4 mg oral tablet Dose : 4 mg = 1 tab(s), Oral, q6h, PRN Nausea/Vomiting, # 12 tab(s), 0 Refill(s), Pharmacy: [id number], 167.6, cm, 09/17/20 12:52:00 EDT, Height, kg, 09/17/20 12:52:00 EDT, Dosing Weight Start Date: 09/18/20 Stop Date: 09/21/20 Status: Ordered Comment on above: Take 4 mg by mouth e very 8 hours as needed for nausea/vomiting. pantoprazole 40 mg delayed release oral tablet (20 sources) Proton Pump Inhibitor Start: 02-04-20 End: 05-04-20 take 1 tablet by mouth once daily pantoprazole DR (PROTONIX) 40 mg tablet Take 1 tablet by mouth once daily. 30 tablet 2 02/04/2024 Active Start: 08-23-2023 take 2 tablets by mo uth twice daily Pantoprazole 20 mg tablet,delayed release (DR/EC) Active 40 mg PO TWICE A DAY August 23, 2023 12:00am HEARTBURN Start: 08-23-2023 take 40 mg by mouth twice daily Pantoprazole Active 40 MG PO TWICE A DAY August 23, 2023 12:00am Start: 01-11-2023 End: 08-23-2023 take 1 tablet by mouth twice daily Pantoprazole 40 mg tablet,delayed release (DR/EC) Discontinued 40 mg PO TWICE A DAY January 11, 2023 12:00am August 23, 2023 12:19pm indigestion Start: 01-11-2023 Pantoprazole A ctive MG PO January 11, 2023 12:00am Start: 11-07-2020 take 40 mg by mouth once daily Pantoprazole Active 40 MG PO DAILY November 07, 2020 2:59am Start: 09-28-2020 End: 02-04-2024 take 1 tablet by mouth twice daily pantoprazole DR (PROTONIX) 20 mg tablet Take 1 tablet by mouth twice daily. 60 tablet 09/28/2020 02/04/2024 Discontinued Start: 09-18-2020 End: 10-18-2020 pantoprazole 40 mg oral ente kalpana coated tablet Dose : 40 mg = 1 tab(s), Oral, BIDAC, # 60 tab(s), 0 Refill(s), Pharmacy: [id number], 167.6, cm, 09/17/20 12:52:00 EDT, Height, kg, 09/17/20 12:52:00 EDT, Dosing Weight Start Date: 09/18/20 Stop Date: 10/18/20 Status: Ordered Comment on above: Take 1 tablet by rey twice daily. phenylephrine hydrochloride 25 mg/ml ophthalmic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 10-15-2023 Chronic Other non-traumatic joint disorders (14 sources) Ankle pain; Translations: [Pain in right ankle and joints of right foot] 11-08-2020 Episodic Other non-traumatic joint disorders (20 sources) Pain in wrist; Translations: [Pain in right wrist] 11-07-2020 Episodic Other nutritional; endocrine; and metabolic disorders (14 sources) Obesity; Translations: [Obesity, unspecified] 04-19-2020 Chronic Other screening for suspected conditions (not mental disorders or infectious disease) (20 sources) D-dimer above reference range; Translations: [Other specified abnormal findings of blood chemistry] Onset: 9 01-30-2019 Episodic Peripheral and visceral atherosclerosis (11 sources) Intermittent claudication of bilateral lower 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; Translations: [Atherosclerosis of [place] arteries of extremities with intermittent claudication, bilateral legs] Onset: 0 12-08-2019 Chronic Residual codes; unclassified (11 sources) Obstructive sleep apnea syndrome; Translations: [Obstructive sleep apnea (adult) (pediatric)] Onset: 9 12-17-2018 Chronic Residual codes; unclassified (14 sources) Altered mental status; Translations: [Altered mental status, unspecified] 04-14-2018 Episodic Residual codes; unclassified (2 sources) Confusional state; Translations: [Disorientation, unspecified] 06-06-2024 Episodic Retinal detachments; defects; vascular occlusion; and retinopathy (3 sources) Hemorrhage of right retina; Translations: [Retinal hemorrhage, right eye] 03-06-2023 Chronic Spondylosis; intervertebral disc disorders; other back problems (20 sources) Cervical spondylosis without myelopathy; Translations: [Spondylosis without myelopathy or radiculopathy, cervical region] Onset: 5 07-07-2014 Chronic Spondylosis; intervertebral disc disorders; other back problems (20 sources) Low back pain; Translations: [Lumbago] Onset: 8 04-28-2008 Episodic Sprains and strains (20 sources) Sprain of wrist; Translations: [Unspecified sprain of right wrist, initial encounter] Onset: 9 Resolved: 0 11-08-2020 Episodic Superficial injury; contusion (2 sources) Contusion of knee; Translations: [Contusion of unspecified knee, initial encounter] 10-18-2023 Episodic Syncope (20 sources) Syncope; Translations: [Syncope and collapse] 08-28-2022 Episodic Unclassified (11 sources) Finding of gastrointestinal tract gas; Translations: [Gas] 06-15-2011 Past or Other Problems Problem Classification Problem Date Documented Da te Episodic/Chronic Abdominal pain (11 sources) Upper abdominal pain; Translations: [Upper abdominal pain, unspecified] Onset: 09-08-2016 09-08-2016 Episodic Coagulation and hemorrhagic disorders (1 source) Spontaneous ecchymoses; Translations: [Spontaneous ecchymoses] Onset: 07-23-2024 Episodic Coronary atherosclerosis and other heart disease (15 sources) Patient post percutaneous transluminal coronary angioplasty; Translations: [Coronary angioplasty status] Onset: 06-07-2020 06-07-2020 Episodic Deficiency and other anemia (11 sources) Anemia; Translations: [Anemia, unspecified] Onset: 10-11-2010 05-23-2021 Episodic E Codes: Natural/environment (4 sources) Overexertion from strenuous movement or load, initial encounter; Translations: [Other overexertion and strenuous and repetitive movements or loads] Onset: 02-22-2009 Resolved: 12-08-2010 12-08-2010 Episodic Gastritis and duodenitis (12 sources) Gastritis; Translations: [Gastritis, unspecified, without bleeding] Onset: 07-04-2011 Episodic Headache; including migraine (11 sources) Headache; Translations: [Headache, unspecified headache type] Onset: 06-19-2014 08-24-2017 Episodic Nonspecific chest pain (20 sources) Chest pain; Translations: [Chest pain, unspecified] Onset: 01-30-2019 01-30-2019 Episodic Other and unspecified benign neoplasm (8 sources) Lipoma (clinical); Translations: [Benign lipomatous neoplasm, unspecified] Onset: 04-22-2008 Resolved: 12-08-2010 11-15-2009 Episodic Other connective tissue disease (15 sources) Unspecified rotator cuff tear or rupture of unspecified shoulder, not specified as traumatic; Translations: [Rotator cuff (capsule) sprain] Onset: 01-22-2009 Resolved: 01-22-2009 01-22-2009 Episodic Other connective tissue disease (11 sources) Achilles tendinitis; Translations: [Achilles tendinitis, unspecified leg] Onset: 06-16-2014 06-16-2014 Episodic Other connective tissue disease (11 sources) Myofascial pain; Translations: [Myalgia, other site] Onset: 07-14-2014 07-14-2014 Episodic Other connective tissue disease (20 sources) Triggering of digit; Translations: [Trigger finger, right little finger] Onset: 08-11-2014 08-11-2014 Episodic Other fractures (11 sources) Closed fracture of one rib; Translations: [Fracture of one rib, right side, subsequent encounter for fracture with routine healing] Onset: 2018 2018 Episodic Other gastrointestinal disorders (11 sources) Dysphagia; Translations: [Dysphagia, unspecified] Onset: 12-17-2013 12-17-2013 Episodic Other liver diseases (11 sources) Hepatic encephalopathy; Translations: [Hepatic failure, unspecified without coma] Onset: 12-17-2018 12-17-2018 Episodic Other nervous system disorders (11 sources) Impaired cognition; Translations: [Other symptoms and signs involving cognitive functions and awareness] Onset: 01-27-2015 01-27-2015 Episodic Other skin disorders (4 sources) Sebaceous cyst of skin; Translations: [Sebaceous cyst] Onset: 12-31-2007 Resolved: 11-15-2009 11-15-2009 Episodic Pulmonary heart disease (11 sources) H/O: pulmonary embolus; Translations: [Personal history of pulmonary embolism] Onset: 08-24-2015 07-06-2021 Episodic Residual codes; unclassified (11 sources) Insomnia; Translations: [Insomnia, unspecified] Onset: 11-19-2013 11-19-2013 Episodic Residual codes; unclassified (11 sources) Poor short-term memory ; Translations: [Other amnesia] Onset: 12-28-2014 05-23-2021 Episodic Residual codes; unclassified (11 sources) Edema of hand; Translations: [Localized edema] Onset: 01-30-2019 01-30-2019 Episodic Residual codes; unclassified (4 sources) Transient alteration of awareness; Translations: [Transient alteration of awareness] Onset: 09-14-2015 Resolved: 03-01-2016 03-01-2016 Episodic Residual codes; unclassified (1 source) Disorientation, unspecified; Translations: [Disorientation, unspecified] Onset: 06-23-2024 Episodic Unclassified (4 sources) NO SHOW Onset: 02-12-2015 Resolved: 06-12-2016 06-12-2016 Results Test Name Value Interpretation Reference Range Facility XR THORACIC 2V AP/LATon 11-0 XR THORACIC 2V AP/LAT * * *Final Report* * * DATE OF EXAM: Mar 30 2025 12:55PM [id number] - XR THORACIC 2V AP/LAT / PROCEDURE REASON: back pain * * * * Physician Interpretation * * * * Thoracic spine: HISTORY: Indication: back pain PT STATES UPPER BACK PAIN BETWEEN T-11 AND L-1 NO INJURY PT STATES UPPER BACK PAIN BETWEEN T-11 AND L-1 NO INJURY TECHNIQUE: Views obtained: Three views- AP lateral and swimmers views Comparison: None. RESULT: Sagittal images from CT abdomen pelvis 05/25/2020 Findings: Marked disc space narrowing at multiple levels in the cervical spine as well as in the mid and upper thoracic spine . There is marked disc space narrowing T12-L1 level. Also marked narrowing at T9-10 and T10-11. The vertebra are in good alignment. No fractures or dislocations are seen. IMPRESSION: Degenerative changes as discussed Grapple Skidder Operator: TARUN Transcribe Date/Time: Apr 07 2025 11:39A Dictated by : ESTRADA VELIZ DO This examination was interpreted and the report reviewed and electronically signed by: ESTRADA VELIZ DO on Apr 07 2025 11:43AM EST [id number] [facility] - Annual Screenon 01-06-2025 PSA,TOT SCREEN 0.03 ng/mL Normal 0.02-4.00 [facility] Comment on above: Result Comment: This test was performed using the [employer] tPSA method. Measured values of a patient??sample can vary depending on the testing procedure used. PSA values determined on patient samples by different testing procedures cannot be used interchangeably. If there is a change in PSA assays while monitoring therapy, sequential testing should be performed to confirm baseline values. Performed By: #### L 500.2500, L100.0100 #### [facility] [address] [place], [place], [address] Serum or plasma uric acid me asurement (mass/volume)Ordered By: Afua Velez on 01-06-2025 Urate [Mass/Vol] 4.4 mg/dL 3.5-7.2 [facility] Comment on above: The drugs N-Acetylcy steine and Metamizole may falsely depress this assay. Uric Acidon 01-06-2025 URIC 4.4 mg/dL Normal 3.5-7.2 [facility] Comment on above: Result Comment: The drugs N-Acetylcysteine and Metamizole may falsely depress this assay. Performed By: #### L 500.2500, L100.0100 #### [facility] [address] [place], [address] XR SHOULDER 2V AP/TRUE AP LT on 10-21-2024 XR SHOULDER 2V AP/TRUE AP LT * * *Final Report* * * DATE OF EXAM: Oct 21 2024 10:48AM [id number] - XR SHOULDER 2V AP/TRUE AP LT / PROCEDURE REASON: Pain in Left Shoulder * * * * Physician Interpretation * * * * EXAM(s): XR SHOULDER 2V AP/TRUE AP LT..... HISTORY: 74 years old Clinical information: Pain in Left Shoulder PT STATES THREE ROTATOR CUFF REPAIRS IN THE PAST, HAVING PAIN WHEN LIFTING LEFT ARM TECHNIQUE: Images: XR SHOULDER 2V AP/TRUE AP LT Comparison: 12/13/2010. RESULT: Findings: Moderate left glenohumeral joint space narrowing, increased since the previous examination. Sclerosis noted along the articular margins of the glenoid. No fracture or dislocation. Scapula, left clavicle, and AC joint unremarkable. Postsurgical changes again noted in the left humeral head. Surgical clips noted in the left supra clavicular soft tissues.. IMPRESSION: Moderate degenerative left glenohumeral joint space narrowing. Grapple Skidder Operator: PSCB Transcribe Date/Time: Oct 24 2024 12:58P Dictated by : STACIE MEYER MD This examination was interpreted and the report reviewed and electronically signed by: STACIE MEYER MD on Oct 24 2024 1:01PM EST [id number] Normal [facility] LIPIDon 08-05-2024 Cholesterol [Mass/Vol] 174 mg/dL Normal 0-200 [facility] Comment on above: Result Comment: Chol esterol Reference Interval: Less than 200 Desirable 200-239 Borderline high risk 240 and above High risk Performed By: #### P BNP, LIPID #### [address] [address] Cholesterol in HDL [Mass/Vol] 62 mg/dL High 40-60 [facility] Comment on above: Performed By: #### P BNP, LIPID #### [address] [address] Cholesterol in LDL [Mass/Vol] 78 mg/dL Normal 0-130 [facility] Comment on above: Performed By: #### P BNP, LIPID #### [address] [address] Triglyceride [Mass/Vol] 168 mg/dL High 0-150 [facility] Comment on above: Result Comment: Trig lyceride Reference Interval: Less than 150 Normal 150-199 Borderline high risk 200-499 High risk 500 or higher Very high risk Performed By: #### P BNP, LIPID #### [address] [address] PBNPon 08-05-2024 Natriuretic peptide B (Bld) [Mass/Vol] 98 pg/mL Normal 0-125 [facility] Comment on above: Result Comment: NT-p roBNP results of less than 300 pg/mL effectively rules out acute congestive heart failure with 99% negative predictive value. Performed By: #### P BNP, LIPID #### [facility] [address] [place], [place] [address] Absolute neutrophil countOrd ered By: Afua Velez on 07-25-2024 Neutrophils (Bld) [#/Vol] 4.7 10*3/uL 2.0-7.7 [facility] Basophil percentageOrdered B y: Afua Velez on 07-25-2024 Basophils/100 WBC (Bld) 0.6 % 0-1 [facility] CBC W/Diff, Automatedon 06-29 Absolute Lymph 2.60 X10 3/uL Normal 0.83-4.51 [facility] Comment on above: Performed By: #### L 100.0100, L300.4310, L300.3900 #### [facility] [address] [place], [address] Absolute Neut 4.7 X10 3/uL Normal 2.0-7.7 [facility] Comment on above: Performed By: #### L 100.0100, L300.4310, L300.3900 #### [facility] [address] [place], [address] Basophils/100 WBC (Bld) 0.6 % Normal 0-1 [facility] Comment on above: Performed By: #### L 100.0100, L300.4310, L300.3900 #### [facility] [address] [place], [address] Eosinophils/100 WBC (Bld) 2.0 % Normal 0-5 [facility] Comment on above: Performed By: #### L 100.0100, L300.4310, L300.3900 #### [facility] [address] [place], [address] Erythrocyte distribution width (RBC) [Ratio] 12.3 % Normal 11.6-14.6 [facility] Comment on above: Performed By: #### L 100.0100, L300.4310, L300.3900 #### [facility] [address] [place], [address] Hematocrit (Bld) [Volume fraction] 40.4 % Normal 40-54 [facility] Comment on above: Performed By: #### L 100.0100, L300.4310, L300.3900 #### [facility] [address] [place], [address] Hemoglobin (Bld) [Mass/Vol] 13.9 g/dL Normal 13.0-16.5 [facility] Comment on above: Performed By: #### L 100.0100, L300.4310, L300.3900 #### [facility] [address] [place], [address] IG% 0.800 Normal 0.0-0.9 [facility] Comment on above: Result Comment: IG% - Immature Granulocytes (promyelocytes, myelocytes and metamyelocytes) > 1% indicates that a LEFT SHIFT is Present. Performed By: #### L 100.0100, L300.4310, L300.3900 #### [facility] [address] [place], [address] Lymphocytes/100 WBC (Bld) 31.3 % Normal 19-41 [facility] Comment on above: Performed By: #### L 100.0100, L300.4310, L300.3900 #### [facility] [address] [place], [address] MCH (RBC) [Entitic mass] 31.8 pg Normal 27.0-32.0 [facility] Comment on above: Performed By: #### L 100.0100, L300.4310, L300.3900 #### [facility] [address] [place], [address] MCHC (RBC) [Mass/Vol] 34.4 g/dL Normal 32-36 [facility] Comment on above: Performed By: #### L 100.0100, L300.4310, L300.3900 #### [facility] [address] [place], [address] MCV (RBC) [Entitic vol] 92.4 fL Normal 80-94 [facility] Comment on above: Performed By: #### L 100.0100, L300.4310, L300.3900 #### [facility] [address] [place], [address] Monocytes/100 WBC (Bld) 9.2 % Normal 0-10 [facility] Comment on above: Performed By: #### L 100.0100, L300.4310, L300.3900 #### [facility] [address] [place], [address] Neutrophils/100 WBC (Bld) 56.1 % Normal 47-70 [facility] Comment on above: Performed By: #### L 100.0100, L300.4310, L300.3900 #### [facility] [address] [place], [address] Nucleated RBC (Bld) [#/Vol] 0 10*3/uL Normal 0-5 [facility] Comment on above: Performed By: #### L 100.0100, L300.4310, L300.3900 #### [facility] [address] [place], [address] Platelet mean volume (Bld) [Entitic vol] 9.6 fL Normal 6.2-12.0 [facility] Comment on above: Performed By: #### L 100.0100, L300.4310, L300.3900 #### [facility] [address] [place], [address] Platelets (Bld) [#/Vol] 197 10*3/uL Normal 150-450 [facility] Comment on above: Performed By: #### L 100.0100, L300.4310, L300.3900 #### [facility] [address] [place], [address] RBC (Bld) [#/Vol] 4.37 10*6/uL Low 4.6-6.2 [facility] Comment on above: Performed By: #### L 100.0100, L300.4310, L300.3900 #### [facility] [address] [place], [address] RDW SD 42.1 fl Normal 35.1-43.9 [facility] Comment on above: Performed By: #### L 100.0100, L300.4310, L300.3900 #### [facility] [address] [place], [address] WBC (Bld) [#/Vol] 8.3 10*3/uL Normal 4.4-11.0 [facility] Comment on above: Performed By: #### L 100.0100, L300.4310, L300.3900 #### [facility] [address] [place], [address] Eosinophil percentageOrdered By: Afua Velez on 07-25-2024 Eosinophils/100 WBC (Bld) 2.0 % 0-5 [facility] Erythrocyte distribution wid th ratioOrdered By: Afua Velez on 07-25-2024 Erythrocyte distribution width (RBC) [Ratio] 12.3 % 11.6-14.6 [facility] Erythrocyte distribution wid th standard deviationOrdered By: Afua Velez on 07-25-2024 Erythrocyte distribution width (RBC) [Entitic vol] 42.1 fL 35.1-43.9 [facility] Hematocrit Auto (Bld) [Volum e fraction]Ordered By: Afua Velez on 07-25-2024 Hematocrit (Bld) [Volume fraction] 40.4 % 40-54 [facility] Hemoglobin measurementOrdere d By: Afua Velez on 07-25-2024 Hemoglobin (Bld) [Mass/Vol] 13.9 g/dL 13.0-16.5 [facility] Immature granulocytes/100 WB C Auto (Bld)Ordered By: Afua Velez on 07-25-2024 Immature granulocytes/100 WBC (Bld) 0.800 % 0.0-0.9 [facility] Comment on above: IG% - Immature Granu locytes (promyelocytes, myelocytes and metamyelocytes) > 1% indicates that a LEFT SHIFT is Present. International normalized rat io (INR) calculationOrdered By: Afua Velez on 07-25-2024 INR Coag (Bld) [Relative time] 1.0 {INR} [facility] L501.4021on 07-25-2024 Trop T High Sen 15 ng/L Normal <=22 [facility] Comment on above: Performed By: #### L 501.4021 #### [facility] [address] [place] [address], [address] Lymphocytes Auto (Unsp spec) [#/Vol]Ordered By: Afua Velez on 07-25-2024 Lymphocytes (Bld) [#/Vol] 2.60 10*3/uL 0.83-4.51 [facility] Lymphocytes/100 WBC Auto (Un sp spec)Ordered By: Afua Velez on 07-25-2024 Lymphocytes/100 WBC (Bld) 31.3 % 19-41 [facility] MCV (mean corpuscular volume ) determinationOrdered By: Afua Velez on 07-25-2024 MCV (RBC) [Entitic vol] 92.4 fL 80-94 [facility] Mean corpuscular hemoglobin (MCH) determinationOrdered By: Afua Velez on 07-25-2024 MCH (RBC) [Entitic mass] 31.8 pg 27.0-32.0 [facility] Mean corpuscular hemoglobin concentration (MCHC) determinationOrdered By: Afua Velez on 07-25-2024 MCHC (RBC) [Mass/Vol] 34.4 g/dL 32-36 [facility] Mean platelet volume determi nationOrdered By: Afua Velez on 07-25-2024 Platelet mean volume (Bld) [Entitic vol] 9.6 fL 6.2-12.0 [facility] Monocyte percentageOrdered B y: Afua Velez on 07-25-2024 Monocytes/100 WBC (Bld) 9.2 % 0-10 [facility] Neutrophil percentageOrdered By: Afua Velez on 07-25-2024 Neutrophils/100 WBC (Bld) 56.1 % 47-70 [facility] No Panel InformationOrdered By: Afua Velez on 07-25-2024 Troponin T High Sensitivity 15 ng/L <22 [facility] Nucleated red blood cell per centageOrdered By: Afua Velez on 07-25-2024 Nucleated RBC/100 WBC (Bld) [Ratio] 0 % 0-5 [facility] Partial Thromboplast Timeon 07-25-2024 aPTT Coag (Bld) [Time] 23.9 s Low 24.1-36.2 [facility] Comment on above: Performed By: #### L 100.0100, L300.4310, L300.3900 #### [facility] [address] [facility] [place], [address] Platelet countOrdered By: Helga Velez on 07-25-2024 Platelets (Bld) [#/Vol] 197 10*3/uL 150-450 [facility] Prothrombin Time w/INRon INR Coag (PPP) [Relative time] 1.0 {INR} Normal [facility] Comment on above: Performed By: #### L 100.0100, L300.4310, L300.3900 #### [facility] [address] [place], [address] PT Coag (PPP) [Time] 13.2 s Normal 11.7-14.9 [facility] Comment on above: Performed By: #### L 100.0100, L300.4310, L300.3900 #### [facility] [address] [place], [place], [address] Prothrombin timeOrdered By: Afua Velez on 07-25-2024 PT Coag (PPP) [Time] 13.2 s 11.7-14.9 [facility] RBC Auto (Bld) [#/Vol]Ordere d By: Afua Velez on 07-25-2024 RBC (Bld) [#/Vol] 4.37 10*6/uL Low 4.6-6.2 [facility] White blood cell (WBC) count Ordered By: Afua Velez on 07-25-2024 WBC (Bld) [#/Vol] 8.3 10*3/uL 4.4-11.0 [facility] aPTT Coag (PPP) [Time]Ordere d By: Afua Velez on 07-25-2024 aPTT Coag (Bld) [Time] 23.9 s Low 24.1-36.2 [facility] CBC W Auto Differential pane l (Bld)on 07-23-2024 Basophils (Bld) [#/Vol] 0.04 10*3/uL Normal <0.11 [facility] Comment on above: Order Comment: Speci men Type: BLOOD SPECIMEN Ordering Facility: External Submitter Address: , , Performed By: #### 5 7021-8 #### [facility] CLIA [id number] [address] [place] [address] [place] Basophils/100 WBC (Bld) 0.5 % [facility] Comment on above: Order Comment: Speci men Type: BLOOD SPECIMEN Ordering Facility: External Submitter Address: , , Performed By: #### 5 7021-8 #### [facility] CLIA [id number] [address] [place], [place] [id number] [place] Differential cell count method Nom (Bld) Auto Normal [facility] Comment on above: Order Comment: Speci men Type: BLOOD SPECIMEN Ordering Facility: External Submitter Address: , , Performed By: #### 5 7021-8 #### [facility] CLIA [id number] [address] [place] [address] [place] Eosinophils (Bld) [#/Vol] 0.12 10*3/uL Normal <0.46 [facility] Comment on above: Order Comment: Speci men Type: BLOOD SPECIMEN Ordering Facility: External Submitter Address: , , Performed By: #### 5 7021-8 #### [facility] CLIA [id number] [address] [place] [address] [place] Eosinophils/100 WBC (Bld) 1.4 % Normal [facility] Comment on above: Order Comment: Speci men Type: BLOOD SPECIMEN Ordering Facility: External Submitter Address: , , Performed By: #### 5 7021-8 #### [facility] CLIA [id number] [address] [place] [address] [place] Erythrocyte distribution width (RBC) [Ratio] 12.5 % Normal 11.5-15.0 [facility] Comment on above: Order Comment: Paoloi men Type: BLOOD SPECIMEN Ordering Facility: External Submitter Address: , , Performed By: #### 5 7021-8 #### [id number] [address] [place] [address] [place] Hematocrit (Bld) [Volume fraction] 40.9 % Normal 39.0-51.0 [facility] Comment on above: Order Comment: Speci men Type: BLOOD SPECIMEN Ordering Facility: External Submitter Address: , , Performed By: #### 5 7021-8 #### [facility] CLIA [id number] [address] [place] [address] [place] Hemoglobin (Bld) [Mass/Vol] 14.0 g/dL Normal 13.0-17.0 [facility] Comment on above: Order Comment: Speci men Type: BLOOD SPECIMEN Ordering Facility: External Submitter Address: , , Performed By: #### 5 7021-8 #### [facility] CLIA [id number] [address] [place] [address] [place] Immature granulocytes (Bld) [#/Vol] 0.08 10*3/uL Normal <0.10 [facility] Comment on above: Order Comment: Speci men Type: BLOOD SPECIMEN Ordering Facility: External Submitter Address: , , Performed By: #### 5 7021-8 #### [facility] CLIA [id number] [address] [place] [address] [place] Immature granulocytes/100 WBC (Bld) 1.0 % Normal [facility] Comment on above: Order Comment: Speci men Type: BLOOD SPECIMEN Ordering Facility: External Submitter Address: , , Performed By: #### 5 7021-8 #### [facility] CLIA [id number] [address] [place] [address] [place] Lymphocytes (Bld) [#/Vol] 2.12 10*3/uL Normal 1.00-4.00 [facility] Comment on above: Order Comment: Speci men Type: BLOOD SPECIMEN Ordering Facility: External Submitter Address: , , Performed By: #### 5 7021-8 #### [facility] CLIA [id number] [address] [place] [address] [place] Lymphocytes/100 WBC (Bld) 25.3 % Normal [facility] Comment on above: Order Comment: Speci men Type: BLOOD SPECIMEN Ordering Facility: External Submitter Address: , , Performed By: #### 5 7021-8 #### [facility] CLIA [id number] [address] [place] [address] [place] MCH (RBC) [Entitic mass] 31.7 pg Normal 26.0-34.0 [facility] Comment on above: Order Comment: Speci men Type: BLOOD SPECIMEN Ordering Facility: External Submitter Address: , , Performed By: #### 5 7021-8 #### [facility] CLIA [id number] [address] [place] [address] [place] MCHC (RBC) [Mass/Vol] 34.2 g/dL Normal 30.5-36.0 [facility] Comment on above: Order Comment: Speci men Type: BLOOD SPECIMEN Ordering Facility: External Submitter Address: , , Performed By: #### 5 7021-8 #### [facility] CLIA [id number] [address] [place] [address] [place] MCV (RBC) [Entitic vol] 92.7 fL Normal 80.0-100.0 [facility] Comment on above: Order Comment: Speci men Type: BLOOD SPECIMEN Ordering Facility: External Submitter Address: , , Performed By: #### 5 7021-8 #### [facility] CLIA [id number] [address] [place] [address] [place] Monocytes (Bld) [#/Vol] 0.75 10*3/uL Normal <0.87 [facility] Comment on above: Order Comment: Speci men Type: BLOOD SPECIMEN Ordering Facility: External Submitter Address: , , Performed By: #### 5 7021-8 #### [facility] CLIA [id number] [address] [place] [address] [place] Monocytes/100 WBC (Bld) 9.0 % Normal [facility] Comment on above: Order Comment: Speci men Type: BLOOD SPECIMEN Ordering Facility: External Submitter Address: , , Performed By: #### 5 7021-8 #### [facility] CLIA [id number] [address] [place] [address] [place] Neutrophils (Bld) [#/Vol] 5.26 10*3/uL Normal 1.45-7.50 [facility] Comment on above: Order Comment: Speci men Type: BLOOD SPECIMEN Ordering Facility: External Submitter Address: , , Performed By: #### 5 7021-8 #### [facility] CLIA [id number] [address] [place] [address] [place] Neutrophils/100 WBC (Bld) 62.8 % Normal [facility] Comment on above: Order Comment: Speci men Type: BLOOD SPECIMEN Ordering Facility: External Submitter Address: , , Performed By: #### 5 7021-8 #### [facility] CLIA [id number] [address] [place] [address] [place] Nucleated RBC (Bld) [#/Vol] 10*3/uL Normal <0.01 [facility] Comment on above: Order Comment: Speci men Type: BLOOD SPECIMEN Ordering Facility: External Submitter Address: , , Performed By: #### 5 7021-8 #### [facility] CLIA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 concentration (MCHC) determinationOrdered By: Taty Fraser on 05-29-2024 MCHC (RBC) [Mass/Vol] 33.6 g/dL 32-36 [facility] Mean platelet volume determi nationOrdered By: Taty Fraser on 05-29-2024 Platelet mean volume (Bld) [Entitic vol] 9.5 fL 6.2-12.0 [facility] Microscopic analysis of urin e for red blood cells (RBC)Ordered By: Taty Fraser on 05-29-2024 Urine RBC 0 SEEN /hpf 0-5 [facility] Monocyte percentageOrdered B y: Taty Fraser on 05-29-2024 Monocytes/100 WBC (Bld) 9.1 % 0-10 [facility] Mucus LM Ql (Urine sed)Order ed By: Taty Fraser on 05-29-2024 Mucus Ql (Urine sed) 0 SEEN /hpf [facility] Neutrophil percentageOrdered By: Taty Fraser on 05-29-2024 Neutrophils/100 WBC (Bld) 55.6 % 47-70 [facility] Nitrite Test strip Ql (U)Ord ered By: Taty Fraser on 05-29-2024 Nitrite Ql (U) Negative Negative [facility] Nucleated red blood cell per centageOrdered By: Taty Fraser on 05-29-2024 Nucleated RBC/100 WBC (Bld) [Ratio] 0 % 0-5 [facility] Platelet countOrdered By: Cleo Fraser on 05-29-2024 Platelets (Bld) [#/Vol] 195 10*3/uL 150-450 [facility] Potassium measurementOrdered By: Taty Fraser on 05-29-2024 Potassium [Moles/Vol] 4.1 mmol/L 3.5-5.1 [facility] Protein Test strip Ql (U)Ord ered By: Taty Fraser on 05-29-2024 Protein Ql (U) Negative Negative [facility] RBC Auto (Bld) [#/Vol]Ordere d By: Taty Fraser on 05-29-2024 RBC (Bld) [#/Vol] 4.11 10*6/uL Low 4.6-6.2 [facility] Serum anion gap measurementO rdered By: Taty Fraser on 05-29-2024 Anion gap [Moles/Vol] 2 mmol/L Low 5-15 [facility] Serum globulin measurementOr dered By: Taty Fraser on 05-29-2024 Globulin (S) [Mass/Vol] 2.9 g/dL 2.2-4.2 [facility] Serum or plasma alanine richardson otransferase (ALT) measurementOrdered By: Taty Fraser on 05-29-2024 ALT [Catalytic activity/Vol] 23 U/L 16-61 [facility] Serum or plasma albumin efrain urement (mass/volume)Ordered By: Taty Fraser on 05-29-2024 Albumin [Mass/Vol] 3.6 g/dL 3.2-5.0 [facility] Serum or plasma alkaline alondra sphatase measurementOrdered By: Taty Fraser on 05-29-2024 ALP [Catalytic activity/Vol] 47 U/L 45-117 [facility] Serum or plasma calcium efrain urement (mass/volume)Ordered By: Taty Fraser on 05-29-2024 Calcium [Mass/Vol] 9.1 mg/dL 8.5-10.1 [facility] Serum or plasma creatinine m easurement (mass/volume)Ordered By: Taty Fraser on 05-29-2024 Creatinine [Mass/Vol] 1.28 mg/dL 0.70-1.30 [facility] Comment on above: The validity of the calculated GFR & GFRAA in patients over 70 years has not been determined. Clinical correlation is essential. Serum or plasma urea nitroge n measurement (mass/volume)Ordered By: Taty Fraser on 05-29-2024 Urea nitrogen [Mass/Vol] 23 mg/dL High 7-18 [facility] Sodium levelOrdered By: Marcio Fraser on 05-29-2024 Sodium [Moles/Vol] 141 mmol/L 136-145 [facility] Total proteinOrdered By: Sae Fraser on 05-29-2024 Protein [Mass/Vol] 6.5 g/dL 6.4-8.2 [facility] Urinalysis, Completeon 05-29 BACTERIA 0 SEEN Normal None Seen [facility] Comment on above: Order Comment: LATRICIA CTOR TO SPECIFY Performed By: #### L 500.2500, L100.0100 #### [facility] [address] [place], [address] EPI,SQUAMOUS 0 SEEN Normal 0-5 [facility] Comment on above: Order Comment: LATRICIA CTOR TO SPECIFY Performed By: #### L 500.2500, L100.0100 #### [facility] [address] [place], [address] Mucus Ql (Urine sed) 0 SEEN Normal [facility] Comment on above: Order Comment: LATRICIA CTOR TO SPECIFY Performed By: #### L 500.2500, L100.0100 #### [facility] [address] [place], [address] RBC 0 SEEN Normal 0-5 [facility] Comment on above: Order Comment: LATRICIA CTOR TO SPECIFY Performed By: #### L 500.2500, L100.0100 #### [facility] [address] [place], [place], [address] WBC 0 SEEN Normal 0-5 [facility] Comment on above: Order Comment: COLLE CTOR TO SPECIFY Performed By: #### L 500.2500, L100.0100 #### [facility] [address] [place], [address] Urine blood detectionOrdered By: Taty Fraser on 05-29-2024 Urine Occult Blood Negative Negative [facility] Urine clarityOrdered By: Sae Fraser on 05-29-2024 Clarity (U) Clear Clear [facility] Urine color determinationOrd ered By: Taty Fraser on 05-29-2024 Color (U) Yellow Yellow [facility] Urine leukocyte esterase det ection by dipstickOrdered By: Taty Fraser on 05-29-2024 Leukocyte esterase Test strip Ql (U) Negative Negative [facility] Urine pHOrdered By: Eddie Fraser on 05-29-2024 pH (U) 7.0 [pH] 5.0 - 8.0 [facility] Urine sediment bacteria coun t by microscopy (number/high power field)Ordered By: Taty Fraser on 05-29-2024 Bacteria LM.HPF (Urine sed) [#/Area] 0 /[HPF] None Seen [facility] Urine specific gravity measu rementOrdered By: Taty Fraser on 05-29-2024 Specific gravity (U) [Rel density] 1.005 1.002-1.030 [facility] Urobilinogen Ql (U)Ordered B y: Taty Fraser on 05-29-2024 Urine Urobilinogen Normal mg/dl Normal [facility] White blood cell (WBC) count Ordered By: Taty Fraser on 05-29-2024 WBC (Bld) [#/Vol] 7.9 10*3/uL 4.4-11.0 [facility] White blood cell countOrdere d By: Taty Fraser on 05-29-2024 Urine WBC 0 SEEN /hpf 0-5 [facility] EGD Study observation Narrat librado 02-05-2024 [facility] Gastrointestinal Endoscopy Patient Name: Sebastien Owens Procedure Date: 02/04/2024 8:32 AM Date of : 1950 Admit Type: Outpatient Age: 73 Room: [facility] Gender: Male 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 Refer to note in patient chart for documentation of history and physical. Referring Physician: Stanley Sandoval MD (Referring MD) Medicines: Monitored Anesthesia Care Complications: No immediate complications. Requesting Provider: Procedure: Pre-Anesthesia Assessment: - Prior to the procedure, a History and Physical was performed, and patient medications and allergies were reviewed. The patient is competent. The risks and benefits of the procedure and the sedation options and risks were discussed with the patient. All questions were answered and informed consent was obtained. Patient identification and proposed procedure were verified by the physician, the nurse and the bag printer in the procedure room. Respiratory Examination: clear to auscultation. Prophylactic Antibiotics: The patient does not require prophylactic antibiotics. Prior Anticoagulants: The patient has taken Plavix (clopidogrel), last dose was day of procedure. ASA Grade Assessment: III - A patient with severe systemic disease. After reviewing the risks and benefits, the patient was deemed in satisfactory condition to undergo the procedure. The anesthesia plan was to use monitored anesthesia care (MAC). Immediately prior to administration of medications, the patient was re-assessed for adequacy to receive sedatives. The heart rate, respiratory rate, oxygen saturations, blood pressure, adequacy of pulmonary ventilation, and response to care were monitored throughout the procedure. The physical status of the patient was re-assessed after the procedure. After obtaining informed consent, the endoscope was passed under direct vision. Throughout the procedure, the patient's blood pressure, pulse, and oxygen saturations were monitored continuously. The Endoscope was introduced through the mouth, and advanced to the jejunum. The upper GI endoscopy was accomplished without difficulty. The patient tolerated the procedure well. Moderate Sedation: MAC anesthesia was administered by the anesthesia team. Total Procedure Duration: 0 hours 6 minutes 43 seconds Findings: The examined jejunum was normal. Scattered mild inflammation characterized by erythema was found in the duodenal bulb. Scattered moderate inflammation characterized by adherent blood, congestion (edema), erosions and friability was found in the gastric antrum. Biopsies were taken with a cold forceps for histology. Non-severe esophagitis with no bleeding was found in the lower third of the esophagus. 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 Impression: - Normal examined jejunum. - Duodenitis. - Gastritis. Biopsied. - Non-severe reflux esophagitis with no bleeding. - Ectopic gastric mucosa in the upper third of the esophagus. Recommendation: - Discharge patient to home. - Resume previous diet. - Continue present medications. - Resume Plavix (clopidogrel) at prior dose today. - Return to nurse practitioner in 1 week. Procedure Code(s): --- Professional --- 87223, Esophagogastroduodenos copy, flexible, transoral; with biopsy, single or multiple CPT copyright 2020 [employer]. All rights reserved. The codes documented in this report are preliminary and upon wind field manager review may be revi (more content not included)... PROVATION [facility] Flexible sigmoidoscopy study on 02-05-2024 [facility] Gastrointestinal Endoscopy Patient Name: Sebastien Owens Procedure Date: 02/04/2024 8:57 AM Date of : 1950 Admit Type: Outpatient Age: 73 Room: [facility] Gender: Male Note Status: Finalized Attending MD: Stanley Sandoval MD, [id number] Procedure: Colonoscopy Indications: Constipation Providers: Stalney Sandoval MD Patient Profile: This is a 73 year old male. Refer to note in patient chart for documentation of history and physical. Last Colonoscopy: several years ago. Referring Physician: Stanley Sandoval MD (Referring MD) Medicines: Monitored Anesthesia Care Requesting Provider: Procedure: Pre-Anesthesia Assessment: - Prior to the procedure, a History and Physical was performed, and patient medications and allergies were reviewed. The patient is competent. The risks and benefits of the procedure and the sedation options and risks were discussed with the patient. All questions were answered and informed consent was obtained. Patient identification and proposed procedure were verified by the physician, the nurse and the bag printer in the procedure room. Mental Status Examination: alert and oriented. Respiratory Examination: clear to auscultation. Prophylactic Antibiotics: The patient does not require prophylactic antibiotics. Prior Anticoagulants: The patient has taken Plavix (clopidogrel), last dose was day of procedure. ASA Grade Assessment: III - A patient with severe systemic disease. After reviewing the risks and benefits, the patient was deemed in satisfactory condition to undergo the procedure. The anesthesia plan was to use monitored anesthesia care (MAC). Immediately prior to administration of medications, the patient was re-assessed for adequacy to receive sedatives. The heart rate, respiratory rate, oxygen saturations, blood pressure, adequacy of pulmonary ventilation, and response to care were monitored throughout the procedure. The physical status of the patient was re-assessed after the procedure. After I obtained informed consent, the scope was passed under direct vision. Throughout the procedure, the patient's blood pressure, pulse, and oxygen saturations were monitored continuously. The Colonoscope was introduced through the anus and advanced to the cecum, identified by the appendiceal orifice, ileocecal valve and palpation. The ileocecal valve, appendiceal orifice, and rectum were photographed. The colonoscopy was performed without difficulty. The patient tolerated the procedure well. The quality of the bowel preparation was adequate to identify polyps greater than 5 mm in size. Scope Withdrawal Time: 0 hours 13 minutes 7 seconds Moderate Sedation: MAC anesthesia was administered by the anesthesia team. Total Procedure Duration: 0 hours 22 minutes 45 seconds Findings: The perianal and digital rectal examinations were normal. The entire examined colon appeared normal on direct and retroflexion views. Impression: - The entire examined colon is normal on direct and retroflexion views. - No specimens collected. Recommendation: - Discharge patient to home. - Resume previous diet. - Continue present medications. - Resume Plavix (clopidogrel) at prior dose today. - Patient has a contact number available for emergencies. The signs and symptoms of potential delayed complications were discussed with the patient. Return to normal activities tomorrow. Written discharge instructions were provided to the patient. - Resume Plavix (clopidogrel) today at prior dose. - Repeat colonoscopy in (more content not included)... [facility] ANES POSTPROC EVALon 024 ANES POSTPROC EVAL HNO ID: [id number] Author: LEENA LEVINE MD Service: Anesthesiology Author Type: Anesthesiologist Type: Anesthesia Postprocedure Evaluation Filed: 02/04/2024 10:36 Note Text: POST ANESTHESIA EVALUATION NOTE : 1950 Procedure Summary Date: 02/04/24 Room / Location: [facility] Endoscopy Anesthesia Start: 837 Anesthesia Stop: 921 Procedures: EGD DIAGNOSTIC COLONOSCOPY DIAGNOSTIC Diagnosis: Constipation, unspecified constipation type Nausea (Nausea) (Constipation) Scheduled Providers: Stanley Sandoval MD; Leena Levine MD; Saleem Walter APRN.SURVEY RODMAN Responsible Provider: Leena Levine MD Anesthesia Type: MAC ASA Status: 3 Anesthesia Type: MAC Last Vitals Vitals Value Taken Time BP 175/87 02/04/24 1000 Temp 36.1 ?C (97 ?F) 02/04/24 0929 Pulse 78 02/04/24 1000 Resp 15 02/04/24 1000 SpO2 98 % 02/04/24 1000 Post Anesthesia Patient Status Patient Evaluation: PACU. PACU/ICU Patient Condition: stable. Anticipated Disposition: phase 2 then home. Neurological Status: aware and responsive. Pulmonary Status: breathing comfortably on room air Airway Control: returned to baseline unsupported. Cardiovascular Status: stable. Pain Management: clinically adequate - multimodal analgesia pain management approach Postoperative Hydration: acceptable. Intraoperative Events: no significant anesthesia events Post Operative Nausea/Vomiting Status: no significant post operative nausea or vomiting Recommendation: continue current plan of care. Anesthesia Observations No Documentation SIGNATURE: Leena Levine MD PATIENT NAME: Sebastien Owens DATE: February 04, 2024 TIME: 10:36 AM CSN: [id number] Normal [facility] ANES PRE-OPon 02-04-2024 ANES PRE-OP HNO ID: [id number] Author: LEENA LEVINE MD Service: Anesthesiology Author Type: Anesthesiologist Type: Anesthesia Preprocedure Evaluation Filed: 02/04/2024 07:22 Note Text: ANESTHESIOLOGY DAY OF SURGERY NOTE : 1950 Procedure Information Date/Time: 02/04/24 0815 Scheduled providers: Stanley Sandoval MD; Leena Levine MD; Saleem Walter APRN.SURVEY RODMAN Procedures: EGD DIAGNOSTIC COLONOSCOPY DIAGNOSTIC Location: [facility] Estimated body mass index is 28.89 kg/m? as calculated from the following: Height as of this encounter: 167.6 cm (5' 6). Weight as of this encounter: 81.2 kg (179 lb). Most recent hematocrit and potassium results: Hematocrit 40.7 10/21/2021 Potassium 4.5 12/23/2020 Relevant Problems No relevant active problems I - PHYSICAL EVALUATION AIRWAY Patient intubated: No. Tracheostomy tube not present Mallampati: II. TM distance: >3 FB. Neck ROM: full ROM without neurological symptoms. Mouth opening: adequate. Short neck: no. Thick neck: no DENTAL Dental findings: poor dentition. Additional exam findings: no II - ANESTHESIA PLAN ASA Score: 3 Anesthetic Plan: MAC The patient is not a current smoker. NPO Status: adequate Beta Shreya Monitoring Plan Monitoring plan: standard ASA. Post Procedure Analgesic Plan Postoperative analgesic plan: multimodal analgesia. Informed Consent Anesthetic risks, benefits, alternatives and personnel discussed. Consent obtained from: patient. Anesthetic risks, benefits, alternatives, personnel and consent discussed: yes. Patient / Responsible Alliance Party agrees to proceed: yes Patient / Surrogate agrees to blood products: blood products not planned DNR status not reviewed with patient and/or family prior to surgery. Significant changes in the patient condition since the History and Physical, not otherwise documented in primary service progress note: no. Potential Anesthesia issues that may suggest increased risk of complications or contraindication to planned procedure: none. Vitals Value Taken Time BP 164/70 02/04/24 0713 Pulse 66 02/04/24 0713 Resp 18 02/04/24 0713 Temp 36.5 ?C (97.7 ?F) 02/04/24 0713 SpO2 97 % 02/04/24 0713 Outpatient Medications as of 02/04/2024 Medication Sig - ARIPiprazole (ABILIFY) 2 mg tablet - MEDICATION, NON-DATABASE Alker selzer twice a day - MEDICATION, NON-DATABASE Take by mouth once daily. Dopa boost - ondansetron orally disintegrating (ZOFRAN ODT) 4 mg disintegrating tablet - colchicine 0.6 mg capsule Take 1 capsule by mouth once daily. (Patient taking differently: Take 0.6 mg by mouth as needed.) - allopurinol (ZYLOPRIM) 100 mg tablet Take 0.5 tablets by mouth once daily. For gout. (Patient taking differently: Take 200 mg by mouth once daily. For gout.) - tamsulosin ER (FLOMAX) 0.4 mg Take 1 capsule by mouth once daily. (Patient taking differently: Take 0.4 mg by mouth two times a day.) - cholecalciferol, Vitamin D3, (VITAMIN D3) 1,250 mcg (50,000 unit) cap capsule Take 1 capsule by mouth one time a week. - finasteride (PROSCAR) 5 mg tablet Take 1 tablet by mouth once daily. - aspirin 81 mg chewable tablet Take 81 mg by mouth one time only. - nitroglycerin sublingual (NITROQUICK) 0.4 mg SL tablet Dissolve 1 tablet under the tongue as needed for Chest Pain. If no pain relief call 911. - acetylcysteine (Y-RMRWLV-P-CYSTEINE MISC) Take 1 capsule by mouth once daily. - BIPAP Pressure change: Bilevel PAP 18/14 cmH2O. Dx: JEFFERSON - metoprolol tartrate, short acting, (LOPRESSOR) 25 mg tablet Take 25 mg by mouth two times a day. - famotidine (PEPCID) 40 mg tablet - rosuvastatin (CRESTOR) 10 mg tablet - ondansetron (ZOFRAN) 4 mg tablet Take 4 mg by mouth every 8 hours as needed for nausea/vomiting. (Patient not taking: Reported on 07/13/2023) - Zinc 50 mg tab Take 50 mg by mouth once daily. - naproxen (NAPROSYN) 500 mg tablet Take 1 tablet by mouth twice daily as needed. for pain. Take with food. (Patient not taking: Reported on 07/13/2023) - ALPRAZolam (XANAX) 0.5 mg tablet Take 1 tablet by mouth three times daily as needed for anxiety for up to 90 days. - sucralfate (CARAFATE) 1 gram tablet Take 1 tablet by mouth before meals and at bedtime. (Patient not taking: Reported on 07/13/2023) - lisinopril 2.5 mg tablet Take 1 tablet by mouth once daily. (Patient not taking: Reported on 07/13/2023) - pantoprazole DR (PROTONIX) 20 mg tablet Take 1 tablet by mouth twice daily. - ferrous sulfate 325 mg (65 mg iron) tablet Take 1 tablet by mouth daily with breakfast. (Patient not taking: Reported on 07/13/2023) - vitamin b complex (B COMPLEX 1) tab Take 1 tablet by mouth once daily. (Patient not taking: Reported on 07/13/2023) Facility-Administered Medications as of 02/04/2024 Medication Dose Route Frequency - lactated ringers iv infusion 5-30 mL/hr INTRAVENOUS CONTINUOUS - lactated ringers iv infusion 30 mL/hr INTRAVENOUS CONTINUOUS (more content not included)... Normal [facility] Colonoscopyon 02-04-2024 Colonoscopy [facility] Gastrointestinal Endoscopy Patient Name: Sebastien Owens Procedure Date: 02/04/2024 8:57 AM Date of : 1950 Admit Type: Outpatient Age: 73 Room: [facility] Gender: Male Note Status: Finalized Attending MD: Stanley Sandoval MD, [id number] Procedure: Colonoscopy Indications: Constipation Providers: Stanley Sandoval MD Patient Profile: This is a 73 year old male. Refer to note in patient chart for documentation of history and physical. Last Colonoscopy: several years ago. Referring Physician: Stanley Sandoval MD (Referring MD) Medicines: Monitored Anesthesia Care Requesting Provider: Procedure: Pre-Anesthesia Assessment: - Prior to the procedure, a History and Physical was performed, and patient medications and allergies were reviewed. The patient is competent. The risks and benefits of the procedure and the sedation options and risks were discussed with the patient. All questions were answered and informed consent was obtained. Patient identification and proposed procedure were verified by the physician, the nurse and the bag printer in the procedure room. Mental Status Examination: alert and oriented. Respiratory Examination: clear to auscultation. Prophylactic Antibiotics: The patient does not require prophylactic antibiotics. Prior Anticoagulants: The patient has taken Plavix (clopidogrel), last dose was day of procedure. ASA Grade Assessment: III - A patient with severe systemic disease. After reviewing the risks and benefits, the patient was deemed in satisfactory condition to undergo the procedure. The anesthesia plan was to use monitored anesthesia care (MAC). Immediately prior to administration of medications, the patient was re-assessed for adequacy to receive sedatives. The heart rate, respiratory rate, oxygen saturations, blood pressure, adequacy of pulmonary ventilation, and response to care were monitored throughout the procedure. The physical status of the patient was re-assessed after the procedure. After I obtained informed consent, the scope was passed under direct vision. Throughout the procedure, the patient's blood pressure, pulse, and oxygen saturations were monitored continuously. The Colonoscope was introduced through the anus and advanced to the cecum, identified by the appendiceal orifice, ileocecal valve and palpation. The ileocecal valve, appendiceal orifice, and rectum were photographed. The colonoscopy was performed without difficulty. The patient tolerated the procedure well. The quality of the bowel preparation was adequate to identify polyps greater than 5 mm in size. Scope Withdrawal Time: 0 hours 13 minutes 7 seconds Moderate Sedation: MAC anesthesia was administered by the anesthesia team. Total Procedure Duration: 0 hours 22 minutes 45 seconds Findings: The perianal and digital rectal examinations were normal. The entire examined colon appeared normal on direct and retroflexion views. Impression: - The entire examined colon is normal on direct and retroflexion views. - No specimens collected. Recommendation: - Discharge patient to home. - Resume previous diet. - Continue present medications. - Resume Plavix (clopidogrel) at prior dose today. - Patient has a contact number available for emergencies. The signs and symptoms of potential delayed complications were discussed with the patient. Return to normal activities tomorrow. Written discharge instructions were provided to the patient. - Resume Plavix (clopidogrel) today at prior dose. - Repeat colonoscopy in 10 years for screening purposes. Procedure Code(s): --- Professional --- 16527, Colonoscopy, flexible; diagnostic, including collection of specimen(s) by brushing or washing, when performed (separate procedure) CPT copyright 2021 [employer]. All rights reserved. The codes documented in this report are preliminary and upon wind field manager review may be revised to meet current compliance requirements. Attending Participation: I personally performed the entire procedure. Scope In: 8:59:08 AM Scope Out: 9:21:53 AM MD Stanley Bryant MD 02/04/2024 9:35:11 AM This report has been signed electronically by Stanley Sandoval MD Number of Addenda: 0 Note Initiated On: 02/04/2024 8:57 AM Estimated Blood Loss: Estimated blood loss: none. Normal [facility] EGD Study observation Narrat iveon 02-04-2024 Radiology [facility]ative[facility] Flexible sigmoidoscopy study on 02-04-2024 Radiology Study observation (narrative) [facility] HISTORY PHYSICALon HISTORY PHYSICAL HNO ID: [id number] Author: STANLEY SANDOVAL MD Service: ? Author Type: Physician Type: H&P Filed: 02/04/2024 07:06 Note Text: 07/13/2023 Sebastien Owens [id number] SURGEON: Dr. Sandoval PRIMARY DIAGNOSIS: Nausea, Bloating, Constipation HPI: Sebastien Owens is a 73 year old male [...] Denies hematochezia or melena. 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 RESP: patient denies a history of any respiratory problems. CARD: HX of cardiac stents and AK. GI: Endorses GERD and hx of bleeding varices. : Endorses urine retention. ENDO: patient denies diabetes, thyroid problems, and steroid use. HEME: patient denies any hematology problems including bleeding, bruising, or anemia. ALLERGIES: Tramadol and Mold PAST SURGICAL HISTORY PAST SURGICAL HISTORY Procedure Laterality Date ARTHRP KNE CONDYLEANDPLATU MEDIALANDLAT COMPARTMENTS 1998 Knee replacement, total left, per Dr. Melara CHOLECYSTECTOMY 05/07/2013 CHOLECYSTECTOMY 2012 COLONOSCOPY 07/11/2021 repeat in 5 years COLONOSCOPY FLX DX W/COLLJ SPEC WHEN PFRMD 10/11/2010 Colonoscopy COLONOSCOPY W/BIOPSY SINGLE/MULTIPLE 09/18/2016 normal EGD TRANSORAL BIOPSY SINGLE/MULTIPLE 09/29/2010 [facility] inpt H-pylori negative EGD TRANSORAL BIOPSY SINGLE/MULTIPLE 09/18/2016 mild gastritis, [facility]ERD [facility] 07/11/2021 ESOPHAGOGASTRODUODENOS COPY TRANSORAL DIAGNOSTIC 03/29/2009 [facility] inpt EGD H-pylori negative ESOPHAGOGASTRODUODENOS COPY TRANSORAL DIAGNOSTIC 07/04/2011 EGD ESOPHAGOGASTRODUODENOS COPY TRANSORAL DIAGNOSTIC 02/27/2013 EGD ESOPHAGOGASTRODUODENOS COPY TRANSORAL DIAGNOSTIC 11/17/2019 EGD EXCISION OF GANGLION, [...] ?C (97.8 ?F) Ht 167.6 cm (5' 6) Wt 86.9 kg (191 lb 9.6 oz) SpO2 96% BMI 30.93 kg/m? GENERAL: Well appearing, alert, in no acute distress, well-hydrated, well nourished. CARDIAC: Rate: normal LUNGS: Lungs clear to auscultation. No wheezing, rhonchi, rales. ABDOMEN: Soft, non-tender to palpation IMPRESSION: Sebastien Owens is a 73 year old male with worsening nausea, bloating, and constipation. Last EGD/colonoscopy was Jun 2021. EGD showed gastritis with non-severe reflux esophagitis. Colonoscopy had poor prep, but was otherwise normal. PLAN: -Schedule for EGD/Colonoscopy at [place] with MAC anesthesia -2 day golytely prep Mishel Mckeon, DO General Surgery PGY5 I saw and evaluated the patient. Discussed with the resident and agree with resident's findings and plan as documented in the resident's note. Stanley Sandoval MD I obtained a KUB which demonstrated [...] staying on clear liquids during that time. [facility] SURGICAL PATHOLOGYon 024 CASE REPORT [facility] Comment on above: Order Comment: Speci asya Type: TISSUE SPECIMEN Ordering Facility: [facility] Address: [address] [place] [address] Result Comment: Surg [facility] Pathology Report Case: [id number] Authorizing Provider: Stanley Sandoval MD Collected: 02/04/2024 08:50 AM Ordering Location: [facility] Endoscopy Received: 02/04/2024 11:51 AM Pathologist: Jose Jimenes MD Specimen: Stomach, Antrum, Biopsy Performed By: #### S #### [facility] CLIA [id number] [address] [place] [address] LABORATORY CLIA [id number] [address] [place] [address] OF [place] DIAGNOSIS COMMENT A. No microorganisms morphologically compatible with Helicobacter Pylori like organisms are identified by routine H AND E-stained sections. [facility] Comment on above: Order Comment: Juanita sky Type: TISSUE SPECIMEN Ordering Facility: [facility] Address: [address] [place] [address] Performed By: #### S #### [facility] CLIA [id number] [address] [place] [address] LABORATORY CLIA [id number] [address] [place] [address] STATES OF [place] FINAL DIAGNOSIS [facility] Comment on above: Order Comment: Juanita sky Type: TISSUE SPECIMEN Ordering Facility: [facility] Address: [address] [place] [address] Result Comment: Doris Titus tomach, antrum, biopsy: - Gastric antral type mucosa with no pathologic diagnostic abnormality; see comment. Performed By: #### S #### [facility] CLIA [id number] [address] [place] [address] OF [facility] CLIA [id number] [address] [place] [address] STATES OF [place] FINAL PERFORMING LAB Normal [facility] Comment on above: Order Comment: Speci men Type: TISSUE SPECIMEN Ordering Facility: [facility] Address: [address] [place] [address] Result Comment: Diag nostic interpretation performed at [facility], [address] [place] [address] CLIA# [id number] Lung Splitter: Jose Jimenes M.D. Performed By: #### S #### [facility] CLIA [id number] [address] [place] [address] LABORATORY CLIA [id number] [address] [place] [address] OF [facility] GROSS DESCRIPTION Normal [facility] Comment on above: Order Comment: Speci men Type: TISSUE SPECIMEN Ordering Facility: [facility] Address: [address] [place] [address] Result Comment: A. S tomach, Antrum, Biopsy Received in formalin is one piece of lowe, soft tissue measuring 0.3 x 0.2 x 0.1 cm. Totally submitted in one cassette. KDK February 04, 2024 5:25 PM Gross examination performed at [facility], [address] [place] [address] Performed By: #### S #### [facility] CLIA [id number] [address] [place] [address] LABORATORY CLIA [id number] [address] [place] [address] OF [place] Upper GI endoscopyon 02-03- 024 Upper GI endoscopy [facility] Gastrointestinal Endoscopy Patient Name: Sebastien Owens Procedure Date: 02/04/2024 8:32 AM Date of : 1950 Admit Type: Outpatient Age: 73 Room: [facility] Gender: Male Note Status: Buckle Inspector Override Attending MD: Stanley Sandoval MD, [id number] Procedure: Upper GI endoscopy Indications: Nausea Providers: Stanley Sandoval MD Patient Profile: This is a 73 year old male. Refer to note in patient chart for documentation of history and physical. Referring Physician: Stanley Sandoval MD (Referring MD) Medicines: Monitored Anesthesia Care Complications: No immediate complications. Requesting Provider: Procedure: Pre-Anesthesia Assessment: - Prior to the procedure, a History and Physical was performed, and patient medications and allergies were reviewed. The patient is competent. The risks and benefits of the procedure and the sedation options and risks were discussed with the patient. All questions were answered and informed consent was obtained. Patient identification and proposed procedure were verified by the physician, the nurse and the bag printer in the procedure room. Respiratory Examination: clear to auscultation. Prophylactic Antibiotics: The patient does not require prophylactic antibiotics. Prior Anticoagulants: The patient has taken Plavix (clopidogrel), last dose was day of procedure. ASA Grade Assessment: III - A patient with severe systemic disease. After reviewing the risks and benefits, the patient was deemed in satisfactory condition to undergo the procedure. The anesthesia plan was to use monitored anesthesia care (MAC). Immediately prior to administration of medications, the patient was re-assessed for adequacy to receive sedatives. The heart rate, respiratory rate, oxygen saturations, blood pressure, adequacy of pulmonary ventilation, and response to care were monitored throughout the procedure. The physical status of the patient was re-assessed after the procedure. After obtaining informed consent, the endoscope was passed under direct vision. Throughout the procedure, the patient's blood pressure, pulse, and oxygen saturations were monitored continuously. The Endoscope was introduced through the mouth, and advanced to the jejunum. The upper GI endoscopy was accomplished without difficulty. The patient tolerated the procedure well. Moderate Sedation: MAC anesthesia was administered by the anesthesia team. Total Procedure Duration: 0 hours 6 minutes 43 seconds Findings: The examined jejunum was normal. Scattered mild inflammation characterized by erythema was found in the duodenal bulb. Scattered moderate inflammation characterized by adherent blood, congestion (edema), erosions and friability was found in the gastric antrum. Biopsies were taken with a cold forceps for histology. Non-severe esophagitis with no bleeding was found in the lower third of the esophagus. 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 Impression: - Normal examined jejunum. - Duodenitis. - Gastritis. Biopsied. - Non-severe reflux esophagitis with no bleeding. - Ectopic gastric mucosa in the upper third of the esophagus. Recommendation: - Discharge patient to home. - Resume previous diet. - Continue present medications. - Resume Plavix (clopidogrel) at prior dose today. - Return to nurse practitioner in 1 week. Procedure Code(s): --- Professional --- 65671, Esophagogastroduodenos copy, flexible, transoral; with biopsy, single or multiple CPT copyright 2020 [employer]. All rights reserved. The codes documented in this report are preliminary and upon wind field manager review may be revised to meet current compliance requirements. Attending Participation: I personally performed the entire procedure. Scope In: 8:48:53 AM Scope Out: 8:55:36 AM MD Stanley Bryant MD 02/04/2024 9:28:42 AM This report has been signed electronically by Stnaley Sandoval MD Number of Addenda: 0 Note Initiated On: 02/04/2024 8:32 AM Estimated Blood Loss: Estimated blood loss: none. Normal [facility] LABORATORYOrdered By: SYSTEM SYSTEM on 12-04-2023 Calcium [Mass/Vol] 9.4 mg/dL Normal 8.4 - 10. 2 mg/dL AO ADM SS Chloride [Moles/Vol] 106 mmol/L Normal 98 - 10 7 mmol/L AO ADM SS CO2 [Moles/Vol] 25 mmol/L Normal 23 - 31 mmol/L AO ADM SS Creatinine [Mass/Vol] 1.50 mg/dL High 0.70 - 1.30 mg/dL AO ADM SS Electrolyte Balance 10.0 mEq/L Normal 4.0 - 15 .0 mEq/L AO ADM SS GFR/1.73 sq M.predicted among blacks MDRD (S/P/Bld) [Vol rate/Area] 56 ml/min/1.73sqm Invalid Interpretation Code AO Chemistry S Comment on above: Interpretive Data: GFR Population mean for , Non- Americans Ages 20-29 = 116 mL/min/1.73 sq.m. Ages 30-39 = 107 mL/min/1.73 sq.m. Ages 40-49 = 99 mL/min/1.73 sq.m. Ages 50-59 = 93 mL/min/1.73 sq.m. Ages 60-69 = 85 mL/min/1.73 sq.m. Ages 70+ = 75 mL/min/1.73 sq.m. Chronic Kidney Disease: Less than 60 mL/min/1.73 square meters End Stage Renal Disease: Less than 15 mL/min/1.73 square meters GFR/1.73 sq M.predicted among non-blacks MDRD (S/P/Bld) [Vol rate/Area] 46 ml/min/1.73sqm Invalid Interpretation Code AO Chemistry S Comment on above: Interpretive Data: GFR Population mean for , Non- Americans Ages 20-29 = 116 mL/min/1.73 sq.m. Ages 30-39 = 107 mL/min/1.73 sq.m. Ages 40-49 = 99 mL/min/1.73 sq.m. Ages 50-59 = 93 mL/min/1.73 sq.m. Ages 60-69 = 85 mL/min/1.73 sq.m. Ages 70+ = 75 mL/min/1.73 sq.m. Chronic Kidney Disease: Less than 60 mL/min/1.73 square meters End Stage Renal Disease: Less than 15 mL/min/1.73 square meters Glucose [Mass/Vol] 85 mg/dL Normal 83 - 110 mg/dL AO ADM SS Potassium [Moles/Vol] 4.3 mmol/L Normal 3.5 - 5.1 mmol/L AO ADM SS Sodium [Moles/Vol] 141 mmol/L Normal 136 - 145 mmol/L AO ADM SS Urea nitrogen [Mass/Vol] 28 mg/dL High 7 - 18 mg/dL AO ADM SS Urea nitrogen/Creatinine [Mass ratio] 19 ratio Normal 7 - 27 ratio AO ADM SS LIPIDon 09-18-2023 Cholesterol [Mass/Vol] 143 mg/dL Normal 0-200 [facility] ([place]) Comment on above: Result Comment: Chol esterol Reference Interval: Less than 200 Desirable 200-239 Borderline high risk 240 and above High risk Performed By: #### A DIFF, BMP, PBNP, TROPHS, MDW, CBC, ANEU, GFR #### [address] [address] Cholesterol in HDL [Mass/Vol] 54 mg/dL Normal 40-60 [facility] ([place]) Comment on above: Performed By: #### A DIFF, BMP, PBNP, TROPHS, MDW, CBC, ANEU, GFR #### [address] [address] Cholesterol in LDL [Mass/Vol] 69 mg/dL Normal 0-130 [facility] ([place]) Comment on above: Performed By: #### A DIFF, BMP, PBNP, TROPHS, MDW, CBC, ANEU, GFR #### [place] [id number] Triglyceride [Mass/Vol] 102 mg/dL Normal 0-150 A [facility] ([place]) Comment on above: Result Comment: Trig lyceride Reference Interval: Less than 150 Normal 150-199 Borderline high risk 200-499 High risk 500 or higher Very high risk Performed By: #### A DIFF, BMP, PBNP, TROPHS, MDW, CBC, ANEU, GFR #### [address] [address] PBNPon 09-18-2023 Natriuretic peptide B (Bld) [Mass/Vol] 224 pg/mL High 0-125 [facility] ([place]) Comment on above: Result Comment: NT-p roBNP results of less than 300 pg/mL effectively rules out acute congestive heart failure with 99% negative predictive value. Performed By: #### A DIFF, BMP, PBNP, TROPHS, MDW, CBC, ANEU, GFR #### [address] [address] .GFRon 08-31-2023 GFR 58 ml/min/1.73sqm Normal [facility] ([place]) Comment on above: Result Comment: GFR Population mean for , Non- Americans Ages 20-29 = 116 mL/min/1.73 sq.m. Ages 30-39 = 107 mL/min/1.73 sq.m. Ages 40-49 = 99 mL/min/1.73 sq.m. Ages 50-59 = 93 mL/min/1.73 sq.m. Ages 60-69 = 85 mL/min/1.73 sq.m. Ages 70+ = 75 mL/min/1.73 sq.m. Chronic Kidney Disease: Less than 60 mL/min/1.73 square meters End Stage Renal Disease: Less than 15 mL/min/1.73 square meters Performed By: #### A TERRI, ROMA, ABRAHAM YOUSIF MDW, CBC, ANEU, GFR #### [address] [address] GFR Non- 48 ml/min/1.73sqm Normal [facility] ([place]) Comment on above: Result Comment: GFR Population mean for , Non- Americans Ages 20-29 = 116 mL/min/1.73 sq.m. Ages 30-39 = 107 mL/min/1.73 sq.m. Ages 40-49 = 99 mL/min/1.73 sq.m. Ages 50-59 = 93 mL/min/1.73 sq.m. Ages 60-69 = 85 mL/min/1.73 sq.m. Ages 70+ = 75 mL/min/1.73 sq.m. Chronic Kidney Disease: Less than 60 mL/min/1.73 square meters End Stage Renal Disease: Less than 15 mL/min/1.73 square meters Performed By: #### A ROMA MURRAY PBNP, TROPHS, MDW, CBC, ANEU, GFR #### [address] [address] BMPon 08-31-2023 BUN/Creatinine Ratio 11 ratio Normal 7-27 [facility] ([place]) Comment on above: Performed By: #### A ROMA MURRAY PBNP, TROPHS, MDW, CBC, ANEU, GFR #### [address] [address] Calcium [Mass/Vol] 9.3 mg/dL Normal 8.4-10.2 [facility] ([place]) Comment on above: Performed By: #### A DIFF, BMP, PBNP, TROPHS, MDW, CBC, ANEU, GFR #### [address] [address] Chloride [Moles/Vol] 105 mmol/L Normal 98-107 [facility] ([place]) Comment on above: Performed By: #### A DIFF, BMP, PBNP, TROPHS, MDW, CBC, ANEU, GFR #### [address] [address] CO2 [Moles/Vol] 28 mmol/L Normal 23-31 [facility] ([place]) Comment on above: Performed By: #### A DIFF, BMP, PBNP, TROPHS, MDW, CBC, ANEU, GFR #### [address] [address] Creatinine [Mass/Vol] 1.45 mg/dL High 0.70-1.30 [facility] ([place]) Comment on above: Performed By: #### A DIFF, BMP, PBNP, TROPHS, MDW, CBC, ANEU, GFR #### [address] [address] Electrolyte Balance 9.0 mEq/L Normal 4.0-15.0 [facility] ([place]) Comment on above: Performed By: #### A DIFF, BMP, PBNP, TROPHS, MDW, CBC, ANEU, GFR #### [address] [address] Glucose [Mass/Vol] 98 mg/dL Normal 83-110 [facility] ([place]) Comment on above: Performed By: #### A DIFF, BMP, PBNP, TROPHS, MDW, CBC, ANEU, GFR #### [address] [address] Potassium [Moles/Vol] 4.7 mmol/L Normal 3.5-5.1 [facility] ([place]) Comment on above: Performed By: #### A DIFF, BMP, PBNP, TROPHS, MDW, CBC, ANEU, GFR #### [address] [address] Sodium [Moles/Vol] 142 mmol/L Normal 136-145 [facility] ([place]) Comment on above: Performed By: #### A DIFF, BMP, PBNP, ABRAHAM, W, CBC, ANEU, GFR #### [address] [address] Urea nitrogen [Mass/Vol] 16 mg/dL Normal 7-18 [facility] ([place]) Comment on above: Performed By: #### A DIFF, BMP, PBNP, TROPHS, MDW, CBC, ANEU, GFR #### [address] [address] MGon 08-31-2023 Magnesium [Mass/Vol] 2.0 mg/dL Normal 1.8-2.4 [facility] ([place]) Comment on above: Performed By: #### A DIFF, BMP, PBNP, LINUSS, MDW, CBC, ANEU, GFR #### [address] [address] PBNPon 08-31-2023 Natriuretic peptide B (Bld) [Mass/Vol] 260 pg/mL High 0-125 [facility] ([place]) Comment on above: Result Comment: NT-p roBNP results of less than 300 pg/mL effectively rules out acute congestive heart failure with 99% negative predictive value. Performed By: #### A DIFF, BMP, PBNP, LINUSS, MDW, CBC, ANEU, GFR #### [address] [address] .Auto Diffon 08-29-2023 Basophil, Absolute 0.1 10 3/mcL Normal 0.0-0.2 [facility] ([place]) Comment on above: Performed By: #### A DIFF, BMP, PBNP, TROPHS, MDW, CBC, ANEU, GFR #### [address] [address] Basophils/100 WBC (Bld) 0.9 % Normal 0.0-2.5 A [facility] ([place]) Comment on above: Performed By: #### A DIFF, BMP, PBNP, TROPHS, MDW, CBC, ANEU, GFR #### [address] [address] Eosinophil, Absolute 0.1 10 3/mcL Normal 0.0-0.4 [facility] ([place]) Comment on above: Performed By: #### A DIFF, BMP, PBNP, TROPHS, MDW, CBC, ANEU, GFR #### [address] [address] Eosinophils/100 WBC (Bld) 1.9 % Normal 0.0-7.0 [facility] ([place]) Comment on above: Performed By: #### A DIFF, BMP, PBNP, TROPHS, MDW, CBC, ANEU, GFR #### [address] [address] Lymphocyte, Absolute 1.7 10 3/mcL Normal 0.8-3.9 [facility] ([place]) Comment on above: Performed By: #### A DIFF, BMP, PBNP, TROPHS, MDW, CBC, ANEU, GFR #### [address] [address] Lymphocytes/100 WBC (Bld) 29.7 % Normal 10.0-50.0 [facility] ([place]) Comment on above: Performed By: #### A DIFF, BMP, PBNP, TROPHS, MDW, CBC, ANEU, GFR #### [address] [address] Monocyte, Absolute 0.7 10 3/mcL Normal 0.2-1.0 [facility] ([place]) Comment on above: Performed By: #### A DIFF, BMP, PBNP, TROPHS, MDW, CBC, ANEU, GFR #### [address] [address] Monocytes/100 WBC (Bld) 11.3 % Normal 1.7-13.0 [facility] ([place]) Comment on above: Performed By: #### A DIFF, BMP, PBNP, TROPHS, MDW, CBC, ANEU, GFR #### [address] [address] Neutrophils/100 WBC (Bld) 56.2 % Normal 37.0-80.0 [facility] ([place]) Comment on above: Performed By: #### A DIFF, BMP, PBNP, TROPHS, MDW, CBC, ANEU, GFR #### [address] [address] .GFRon 08-29-2023 GFR 55 ml/min/1.73sqm Normal [facility] ([place]) Comment on above: Result Comment: GFR Population mean for , Non- Americans Ages 20-29 = 116 mL/min/1.73 sq.m. Ages 30-39 = 107 mL/min/1.73 sq.m. Ages 40-49 = 99 mL/min/1.73 sq.m. Ages 50-59 = 93 mL/min/1.73 sq.m. Ages 60-69 = 85 mL/min/1.73 sq.m. Ages 70+ = 75 mL/min/1.73 sq.m. Chronic Kidney Disease: Less than 60 mL/min/1.73 square meters End Stage Renal Disease: Less than 15 mL/min/1.73 square meters Performed By: #### A DIFF, BMP, PBNP, TROPHS, MDW, CBC, ANEU, GFR #### [address] [address] GFR Non- 45 ml/min/1.73sqm Normal [facility] ([place]) Comment on above: Result Comment: GFR Population mean for , Non- Americans Ages 20-29 = 116 mL/min/1.73 sq.m. Ages 30-39 = 107 mL/min/1.73 sq.m. Ages 40-49 = 99 mL/min/1.73 sq.m. Ages 50-59 = 93 mL/min/1.73 sq.m. Ages 60-69 = 85 mL/min/1.73 sq.m. Ages 70+ = 75 mL/min/1.73 sq.m. Chronic Kidney Disease: Less than 60 mL/min/1.73 square meters End Stage Renal Disease: Less than 15 mL/min/1.73 square meters Performed By: #### A DIFF, BMP, PBNP, TROPHS, MDW, CBC, ANEU, GFR #### [address] [address] .MDWon 08-29-2023 Monocyte Distribution Width 16.39 Normal 0.00-20.00 [facility] ([place]) Comment on above: Result Comment: For ED adult patients suspected of sepsis, MDW<=20.0 does not rule out sepsis or risk of sepsis Performed By: #### A DIFF, BMP, PBNP, TROPHS, MDW, CBC, ANEU, GFR #### [address] [address] .NEUABSon 08-29-2023 Neutrophil, Absolute 3.3 10 3/mcL Normal 2.9-6.2 [facility] ([place]) Comment on above: Performed By: #### A DIFF, BMP, PBNP, TROPHS, MDW, CBC, ANEU, GFR #### [address] [address] BMPon 08-29-2023 BUN/Creatinine Ratio 14 ratio Normal 7-27 [facility] ([place]) Comment on above: Performed By: #### A DIFF, BMP, PBNP, TROPHS, MDW, CBC, ANEU, GFR #### [address] [address] Calcium [Mass/Vol] 8.8 mg/dL Normal 8.4-10.2 [facility] ([place]) Comment on above: Performed By: #### A DIFF, BMP, PBNP, TROPHS, MDW, CBC, ANEU, GFR #### [address] [address] Chloride [Moles/Vol] 106 mmol/L Normal 98-107 [facility] ([place]) Comment on above: Performed By: #### A DIFF, BMP, PBNP, TROPHS, MDW, CBC, ANEU, GFR #### [address] [address] CO2 [Moles/Vol] 24 mmol/L Normal 23-31 [facility] ([place]) Comment on above: Performed By: #### A DIFF, BMP, PBNP, TROPHS, MDW, CBC, ANEU, GFR #### [address] [address] Creatinine [Mass/Vol] 1.52 mg/dL High 0.70-1.30 [facility] ([place]) Comment on above: Performed By: #### A DIFF, BMP, PBNP, TROPHS, MDW, CBC, ANEU, GFR #### [address] [address] Electrolyte Balance 12.0 mEq/L Normal 4.0-15.0 [facility] ([place]) Comment on above: Performed By: #### A DIFF, BMP, PBNP, TROPHS, MDW, CBC, ANEU, GFR #### [address] [address] Glucose [Mass/Vol] 90 mg/dL Normal 83-110 [facility] ([place]) Comment on above: Performed By: #### A DIFF, BMP, PBNP, TROPHS, MDW, CBC, ANEU, GFR #### [address] [address] Potassium [Moles/Vol] 4.2 mmol/L Normal 3.5-5.1 [facility] ([place]) Comment on above: Performed By: #### A DIFF, BMP, PBNP, TROPHS, MDW, CBC, ANEU, GFR #### [address] [address] Sodium [Moles/Vol] 142 mmol/L Normal 136-145 [facility] ([place]) Comment on above: Performed By: #### A DIFF, BMP, PBNP, TROPHS, MDW, CBC, ANEU, GFR #### [address] [address] Urea nitrogen [Mass/Vol] 22 mg/dL High 7-18 [facility] ([place]) Comment on above: Performed By: #### A DIFF, BMP, PBNP, TROPHS, MDW, CBC, ANEU, GFR #### [address] [address] CBCon 08-29-2023 Erythrocyte distribution width (RBC) [Ratio] 14.3 % Normal 11.5-14.5 [facility] ([place]) Comment on above: Performed By: #### A DIFF, BMP, PBNP, TROPHS, MDW, CBC, ANEU, GFR #### [address] [address] Hematocrit (Bld) [Volume fraction] 35.9 % Low 42.0-52.0 [facility] ([place]) Comment on above: Performed By: #### A DIFF, BMP, PBNP, TROPHS, MDW, CBC, ANEU, GFR #### [address] [address] Hgb 12.5 G/dL Low 14.0-18.0 [facility] ([place]) Comment on above: Performed By: #### A DIFF, BMP, PBNP, TROPHS, MDW, CBC, ANEU, GFR #### [address] [address] MCH (RBC) [Entitic mass] 31.9 pg High 27.0-31.2 [facility] ([place]) Comment on above: Performed By: #### A DIFF, BMP, PBNP, TROPHS, MDW, CBC, ANEU, GFR #### [place] [address] MCHC 34.7 G/dL Normal 31.8-35.4 [facility] ([place]) Comment on above: Performed By: #### A DIFF, BMP, PBNP, TROPHS, MDW, CBC, ANEU, GFR #### [address] [address] MCV (RBC) [Entitic vol] 91.9 fL Normal 80.0-94.0 [facility] ([place]) Comment on above: Performed By: #### A DIFF, BMP, PBNP, TROPHS, MDW, CBC, ANEU, GFR #### [address] [address] Platelet 163 10 3/mcL Normal 130-400 [facility] ([place]) Comment on above: Performed By: #### A DIFF, BMP, PBNP, TROPHS, MDW, CBC, ANEU, GFR #### [place] [address] Platelet mean volume (Bld) [Entitic vol] 7.7 fL Normal 7.4-10.4 [facility] ([place]) Comment on above: Performed By: #### A DIFF, BMP, PBMARY KAY, ABRAHAM, W, CBC, ANEU, GFR #### [place] [address] RBC 3.91 10 6/mcL Low 4.04-6.13 [facility] ([place]) Comment on above: Performed By: #### A DIFF, BMP, PBMARY KAY, ABRAHAM, CARLOS, CBC, ANEU, GFR #### [place] [address] WBC 5.8 10 3/mcL Normal 4.6-10.8 [facility] ([place]) Comment on above: Performed By: #### A DIFF, BMP, PBMARY KAY, ABRAHAM, CARLOS, CBC, ANEU, GFR #### [place] [address] LABORATORYOrdered By: SYSTEM SYSTEM on 08-29-2023 Troponin I.cardiac DL <= 0.01 ng/mL [Mass/Vol] 21 ng/L Normal 0 - 76 ng/L AO ADM SS Comment on above: Interpretive Data: H igh Sensitive Troponin I Reference Ranges: Female: 0-51 ng/L Male: 0-76 ng/L Testing performed on [place] using a homogeneous sandwich chemiluminescent immunoassay based on [employer] technology. Basophil, Absolute 0.1 103/mcL Normal 0.0 - 0.2 10^3/mcL AO Workflow SS Basophils/100 WBC (Bld) 0.9 % Normal 0.0 - 2.5 % AO Workflow SS Calcium [Mass/Vol] 8.8 mg/dL Normal 8.4 - 10. 2 mg/dL AO ADM SS Chloride [Moles/Vol] 106 mmol/L Normal 98 - 10 7 mmol/L AO ADM SS CO2 [Moles/Vol] 24 mmol/L Normal 23 - 31 mmol/L AO ADM SS Creatinine [Mass/Vol] 1.52 mg/dL High 0.70 - 1.30 mg/dL AO ADM SS Electrolyte Balance 12.0 mEq/L Normal 4.0 - 15 .0 mEq/L AO ADM SS Eosinophil, Absolute 0.1 103/mcL Normal 0.0 - 0 .4 10^3/mcL AO Workflow SS Eosinophils/100 WBC (Bld) 1.9 % Normal 0.0 - 7.0 % AO Workflow SS Erythrocyte distribution width (RBC) [Ratio] 14.3 % Normal 11.5 - 14.5 % AO Workflow SS GFR/1.73 sq M.predicted among blacks MDRD (S/P/Bld) [Vol rate/Area] 55 ml/min/1.73sqm Invalid Interpretation Code AO Chemistry S Comment on above: Interpretive Data: GFR Population mean for , Non- Americans Ages 20-29 = 116 mL/min/1.73 sq.m. Ages 30-39 = 107 mL/min/1.73 sq.m. Ages 40-49 = 99 mL/min/1.73 sq.m. Ages 50-59 = 93 mL/min/1.73 sq.m. Ages 60-69 = 85 mL/min/1.73 sq.m. Ages 70+ = 75 mL/min/1.73 sq.m. Chronic Kidney Disease: Less than 60 mL/min/1.73 square meters End Stage Renal Disease: Less than 15 mL/min/1.73 square meters GFR/1.73 sq M.predicted among non-blacks MDRD (S/P/Bld) [Vol rate/Area] 45 ml/min/1.73sqm Invalid Interpretation Code AO Chemistry S Comment on above: Interpretive Data: GFR Population mean for , Non- Americans Ages 20-29 = 116 mL/min/1.73 sq.m. Ages 30-39 = 107 mL/min/1.73 sq.m. Ages 40-49 = 99 mL/min/1.73 sq.m. Ages 50-59 = 93 mL/min/1.73 sq.m. Ages 60-69 = 85 mL/min/1.73 sq.m. Ages 70+ = 75 mL/min/1.73 sq.m. Chronic Kidney Disease: Less than 60 mL/min/1.73 square meters End Stage Renal Disease: Less than 15 mL/min/1.73 square meters Glucose [Mass/Vol] 90 mg/dL Normal 83 - 110 mg/dL AO ADM SS Hematocrit (Bld) [Volume fraction] 35.9 % Low 42.0 - 52.0 % AO Workflow SS Hemoglobin (Bld) [Mass/Vol] 12.5 G/dL Low 14.0 - 18.0 G/dL AO Workflow SS Lymphocyte, Absolute 1.7 103/mcL Normal 0.8 - 3 .9 10^3/mcL AO Workflow SS Lymphocytes/100 WBC (Bld) 29.7 % Normal 10.0 - 50.0 % AO Workflow SS MCH (RBC) [Entitic mass] 31.9 pg High 27.0 - 31.2 pg AO Workflow SS MCHC 34.7 G/dL Normal 31.8 - 35.4 G/dL AO Workflow SS MCV (RBC) [Entitic vol] 91.9 fL Normal 80.0 - 94.0 fL AO Workflow SS Monocyte distribution width Auto (Bld) [Entitic vol] 16.39 1 Normal 0.00 - 20.00 AO Workflow SS Comment on above: Result Comment: For ED adult patients suspected of sepsis, MDW<=20.0 does not rule out sepsis or risk of sepsis Monocyte, Absolute 0.7 103/mcL Normal 0.2 - 1.0 10^3/mcL AO Workflow SS Monocytes/100 WBC (Bld) 11.3 % Normal 1.7 - 13.0 % AO Workflow SS Natriuretic peptide.B prohormone N-Terminal [Mass/Vol] 212 pg/mL High 0 - 125 pg/mL AO ADM SS Comment on above: Interpretive Data: N T-proBNP results of less than 300 pg/mL effectively rules out acute congestive heart failure with 99% negative predictive value. Neutrophil, Absolute 3.3 103/mcL Normal 2.9 - 6 .2 10^3/mcL AO Workflow SS Neutrophils/100 WBC (Bld) 56.2 % Normal 37.0 - 80.0 % AO Workflow SS Platelet mean volume (Bld) [Entitic vol] 7.7 fL Normal 7.4 - 10.4 fL AO Workflow SS Platelets (Bld) [#/Vol] 163 103/mcL Normal 130 - 400 10^3/mcL AO Workflow SS Potassium [Moles/Vol] 4.2 mmol/L Normal 3.5 - 5.1 mmol/L AO ADM SS RBC (Bld) [#/Vol] 3.91 106/mcL Low 4.04 - 6.1 3 10^6/mcL AO Workflow SS Sodium [Moles/Vol] 142 mmol/L Normal 136 - 145 mmol/L AO ADM SS Troponin I.cardiac DL <= 0.01 ng/mL [Mass/Vol] 20 ng/L Normal 0 - 76 ng/L AO ADM SS Comment on above: Interpretive Data: H igh Sensitive Troponin I Reference Ranges: Female: 0-51 ng/L Male: 0-76 ng/L Testing performed on [employer] using a homogeneous sandwich chemiluminescent immunoassay based on [employer] technology. Urea nitrogen [Mass/Vol] 22 mg/dL High 7 - 18 mg/dL AO ADM SS Urea nitrogen/Creatinine [Mass ratio] 14 ratio Normal 7 - 27 ratio AO ADM SS WBC (Bld) [#/Vol] 5.8 103/mcL Normal 4.6 - 10.8 10^3/mcL AO Workflow SS PBNPon 08-29-2023 Natriuretic peptide B (Bld) [Mass/Vol] 212 pg/mL High 0-125 [facility] ([place]) Comment on above: Result Comment: NT-p roBNP results of less than 300 pg/mL effectively rules out acute congestive heart failure with 99% negative predictive value. Performed By: #### A DIFF, BMP, BENJA, CARLOS ROSARIO, CBC, ANEU, GFR #### [address] [address] [facility] 08-29-2023 High Sensitivity Troponin I 21 ng/L Normal 0-76 [facility] ([place]) Comment on above: Result Comment: High Sensitive Troponin I Reference Ranges: Female: 0-51 ng/L Male: 0-76 ng/L Testing performed on [employer] using a homogeneous sandwich chemiluminescent immunoassay based on [employer] technology. Performed By: #### [facility] #### [address] [address] High Sensitivity Troponin I 20 ng/L Normal 0-76 [facility] ([place]) Comment on above: Result Comment: High Sensitive Troponin I Reference Ranges: Female: 0-51 ng/L Male: 0-76 ng/L Testing performed on [employer] EX[employer] using a homogeneous sandwich chemiluminescent immunoassay based on [employer] technology. Performed By: #### A DIFF, BMP, PBMARY KAY, TROPHS, MDW, CBC, ANEU, GFR #### [address] [address] XR CHEST 1 VIEWon 08-29-2023 XR CHEST 1 VIEW ORIGINAL EXAMINATION: ONE XRAY VIEW OF THE CHEST08/29/2023 3:06 pm COMPARISON: 06/15/2021 HISTORY: ORDERING SYSTEM PROVIDED HISTORY: Reason for Exam: chest pain and bradycardia FINDINGS: Cardiomediastinal contours are within normal limits. Atherosclerosis of the aorta. No focal consolidation or pulmonary edema. No pleural effusion or visible pneumothorax. No acute osseous abnormality. Multilevel degenerative changes of the visualized spine. Surgical clips noted in the left lower neck. IMPRESSION: No acute cardiopulmonary process. I have personally reviewed the images of this examination and agree with the resident's findings and interpretations. Interpreted by: Hardy Garcia DO Preliminary Report By: Kevin Ruiz Electronically signed By Hardy Garcia DO Dictated Date: 08/29/2023 3:11:31 PM Prelim Date: 08/29/2023 3:21:59 PM Sign Date: 08/29/2023 3:21:59 PM Ordering Provider: THAI VALERIO [facility] ([place]) Absolute lymphocyte countOrd ered By: Stevan Max on 08-24-2023 Lymphocytes Auto (Unsp spec) [#/Vol] 2.60 10*3/uL 0.83-4.51 [facility] Automated lymphocyte count a s percentage of total leukocytesOrdered By: Stevan Max on 08-24-2023 Lymphocytes/100 WBC Auto (Unsp spec) 34.6 % 19-41 [facility] Basophil percentageOrdered B y: Stevan Max on 08-24-2023 Basophils/100 WBC (Bld) 0.5 % 0-1 [facility] Chloride [Moles/Vol] 112 mmol/L 98-107 [facility] Eosinophils/100 WBC (Bld) 3.7 % 0-5 [facility] Glucose [Mass/Vol] 94 mg/dL 74-106 [facility] Hemoglobin (Bld) [Mass/Vol] 11.0 g/dL 13.0-16.5 [facility] Monocytes/100 WBC (Bld) 8.9 % 0-10 [facility] Neutrophils (Bld) [#/Vol] 3.9 10*3/uL 2.0-7.7 [facility] Neutrophils/100 WBC (Bld) 51.8 % 47-70 [facility] Potassium [Moles/Vol] 4.0 mmol/L 3.5-5.1 [facility] Comment on above: Slight Hemolysis, Re sult may be falsely increased. Sodium [Moles/Vol] 142 mmol/L 136-145 [facility] WBC (Bld) [#/Vol] 7.5 10*3/uL 4.4-11.0 [facility] Determination of erythrocyte mean corpuscular volume (MCV)Ordered By: Stevan Max on 08-24-2023 MCV (RBC) [Entitic vol] 93.6 fL 80-94 [facility] Erythrocyte distribution wid th ratioOrdered By: Stevan Max on 08-24-2023 Erythrocyte distribution width (RBC) [Ratio] 13.3 % 11.6-14.6 [facility] Erythrocyte distribution wid th standard deviationOrdered By: Stevan Max on 08-24-2023 Erythrocyte distribution width (RBC) [Entitic vol] 45.4 fL 35.1-43.9 [facility] Hematocrit Auto (Bld) [Volum e fraction]Ordered By: Stevan Max on 08-24-2023 Hematocrit (Bld) [Volume fraction] 33.8 % 40-54 [facility] Immature granulocytes/100 WB C Auto (Bld)Ordered By: Stevan Max on 08-24-2023 Immature granulocytes/100 WBC (Bld) 0.500 % 0.0-0.9 [facility] Comment on above: IG% - Immature Granu locytes (promyelocytes, myelocytes and metamyelocytes) > 1% indicates that a LEFT SHIFT is Present. Laboratory - Chemistry and C hemistry - challengeOrdered By: Stevan Max on 08-24-2023 CO2 [Moles/Vol] 26.0 mmol/L 21.0-32.0 [facility] Urea nitrogen/Creatinine [Mass ratio] 18.3 mg/mg 10-20 [facility] Laboratory - Hematology and Cell countsOrdered By: Stevan Max on 08-24-2023 MCH (RBC) [Entitic mass] 30.5 pg 27.0-32.0 [facility] MCHC (RBC) [Mass/Vol] 32.5 g/dL 32-36 [facility] Nucleated RBC/100 WBC (Bld) [Ratio] 0 % 0-5 [facility] Platelet mean volume (Bld) [Entitic vol] 9.7 fL 6.2-12.0 [facility] Platelets (Bld) [#/Vol] 176 10*3/uL 150-450 [facility] No Panel InformationOrdered By: Stevan Max on 08-24-2023 Estimated Creatinine Clearance Calc 58.72 ml/min [facility] Estimated GFR (MDRD) Amer 80 mL/min >60 [facility] Comment on above: GFR Calc Estimated GFR (MDRD) Non-Af Amer 66 mL/min >60 [facility] Comment on above: Non- GFR Calc RBC Auto (Bld) [#/Vol]Ordere d By: Stevan Max on 08-24-2023 RBC (Bld) [#/Vol] 3.61 10*6/uL 4.6-6.2 [facility] Serum or plasma calcium efrain urement (mass/volume)Ordered By: Stevan Max on 08-24-2023 Calcium [Mass/Vol] 8.8 mg/dL 8.5-10.1 [facility] Serum or plasma creatinine m easurement (mass/volume)Ordered By: Stevan Max on 08-24-2023 Creatinine [Mass/Vol] 1.15 mg/dL 0.70-1.30 [facility] Comment on above: The validity of the calculated GFR & GFRAA in patients over 70 years has not been determined. Clinical correlation is essential. Serum or plasma urea nitroge n measurement (mass/volume)Ordered By: Stevan Max on 08-24-2023 Urea nitrogen [Mass/Vol] 21 mg/dL 7-18 [facility] Thin prep Papanicolaou smear with manual screeningOrdered By: Stevan Max on 08-24-2023 Thin prep Papanicolaou smear with manual screening 4 5-15 [facility] No Panel InformationOrdered By: Teresa Roberts on 08-23-2023 Troponin I High Sensitivity 25 pg/mL 3.0-78.0 [facility] Comment on above: Please Note: New Charlee t Units and Gender Specific Reference Ranges. For more information see Policy Stat Procedure [place] High Sensitivity Troponin (TNIH) and attachments. Basophil percentageOrdered B y: Melly Salo on 08-08-2023 Bilirubin [Mass/Vol] 0.90 mg/dL 0.20-1.00 [facility] Comment on above: For patients on eltr ombopag therapy, use of Dimension [place] TBIL is not recommended. Chloride [Moles/Vol] 107 mmol/L 98-107 [facility] Glucose [Mass/Vol] 99 mg/dL 74-106 [facility] Potassium [Moles/Vol] 3.9 mmol/L 3.5-5.1 [facility] Protein [Mass/Vol] 7.0 g/dL 6.4-8.2 [facility] Sodium [Moles/Vol] 139 mmol/L 136-145 [facility] Basophil percentageOrdered B y: Nabil Salcedo on 08-08-2023 Hemoglobin (Bld) [Mass/Vol] 12.4 g/dL 13.0-16.5 [facility] WBC (Bld) [#/Vol] 11.3 10*3/uL 4.4-11.0 [facility] Determination of erythrocyte mean corpuscular volume (MCV)Ordered By: Nabil Salcedo on 08-08-2023 MCV (RBC) [Entitic vol] 93.8 fL 80-94 [facility] Erythrocyte distribution wid th ratioOrdered By: Nabil Salcedo on 08-08-2023 Erythrocyte distribution width (RBC) [Ratio] 13.4 % 11.6-14.6 [facility] Erythrocyte distribution wid th standard deviationOrdered By: Nabil Salcedo on 08-08-2023 Erythrocyte distribution width (RBC) [Entitic vol] 45.6 fL 35.1-43.9 [facility] Hematocrit Auto (Bld) [Volum e fraction]Ordered By: Nabil Salcedo on 08-08-2023 Hematocrit (Bld) [Volume fraction] 36.5 % 40-54 [facility] Laboratory - Chemistry and C hemistry - challengeOrdered By: Melly Leong on 08-08-2023 Albumin/Globulin [Mass ratio] 1.2 {ratio} 0.9-2.4 [facility] ALP [Catalytic activity/Vol] 57 U/L 45-117 [facility] ALT [Catalytic activity/Vol] 35 U/L 16-61 [facility] CO2 [Moles/Vol] 28.0 mmol/L 21.0-32.0 [facility] Globulin (S) [Mass/Vol] 3.2 g/dL 2.2-4.2 [facility] Urea nitrogen/Creatinine [Mass ratio] 16.6 mg/mg 10-20 [facility] Laboratory - Hematology and Cell countsOrdered By: Nabil Salcedo on 08-08-2023 MCH (RBC) [Entitic mass] 31.9 pg 27.0-32.0 [facility] MCHC (RBC) [Mass/Vol] 34.0 g/dL 32-36 [facility] Platelet mean volume (Bld) [Entitic vol] 10.1 fL 6.2-12.0 [facility] Platelets (Bld) [#/Vol] 169 10*3/uL 150-450 [facility] No Panel InformationOrdered By: Melly Leong on 08-08-2023 Estimated Creatinine Clearance Calc 45.09 ml/min [facility] Estimated GFR (MDRD) Amer 59 mL/min >60 [facility] Comment on above: GFR Calc Estimated GFR (MDRD) Non-Af Amer 48 mL/min >60 [facility] Comment on above: Non- GFR Calc RBC Auto (Bld) [#/Vol]Ordere d By: Nabil Salcedo on 08-08-2023 RBC (Bld) [#/Vol] 3.89 10*6/uL 4.6-6.2 [facility] Serum or plasma calcium efrain urement (mass/volume)Ordered By: Melly Leong on 08-08-2023 Calcium [Mass/Vol] 9.5 mg/dL 8.5-10.1 [facility] Serum or plasma creatinine m easurement (mass/volume)Ordered By: Melly Leong on 08-08-2023 Creatinine [Mass/Vol] 1.51 mg/dL 0.70-1.30 [facility] Comment on above: The validity of the calculated GFR & GFRAA in patients over 70 years has not been determined. Clinical correlation is essential. Serum or plasma urea nitroge n measurement (mass/volume)Ordered By: Melly Leong on 08-08-2023 Urea nitrogen [Mass/Vol] 25 mg/dL 7-18 [facility] Thin prep Papanicolaou smear with manual screeningOrdered By: Melly Leong on 08-08-2023 Thin prep Papanicolaou smear with manual screening 3.8 g/dL 3.2-5.0 [facility] Thin prep Papanicolaou smear with manual screening 108 U/L 15-37 [facility] Thin prep Papanicolaou smear with manual screening 4 5-15 [facility] Absolute lymphocyte countOrd ered By: Fabio Tovar on 08-07-2023 Lymphocytes Auto (Unsp spec) [#/Vol] 1.71 10*3/uL 0.83-4.51 [facility] Automated lymphocyte count a s percentage of total leukocytesOrdered By: Fabio Tovar on 08-07-2023 Lymphocytes/100 WBC Auto (Unsp spec) 10.0 % 19-41 [facility] Basophil percentageOrdered B y: Melly Leong on 08-07-2023 Basophil percentage 4.7 mg/dL 2.5-4.9 [facility] Basophil percentageOrdered B y: Fabio Tovar on 08-07-2023 Basophils/100 WBC (Bld) 0.3 % 0-1 [facility] Eosinophils/100 WBC (Bld) 0.1 % 0-5 [facility] Monocytes/100 WBC (Bld) 10.4 % 0-10 [facility] Neutrophils (Bld) [#/Vol] 13.5 10*3/uL 2.0-7.7 [facility] Neutrophils/100 WBC (Bld) 78.3 % 47-70 [facility] Blood manual differential co mment interpretation (narrative result)Ordered By: Fabio Tovar on 08-07-2023 Manual differential comment Max (Bld) [Interp] SCANNED [facility] Comment on above: MONOCYTOSIS PRESENT Immature granulocytes/100 WB C Auto (Bld)Ordered By: Fabio Tovar on 08-07-2023 Immature granulocytes/100 WBC (Bld) 0.900 % 0.0-0.9 [facility] Comment on above: IG% - Immature Granu locytes (promyelocytes, myelocytes and metamyelocytes) > 1% indicates that a LEFT SHIFT is Present. Laboratory - Chemistry and C hemistry - challengeOrdered By: Melly Leong on 08-07-2023 Magnesium [Mass/Vol] 1.9 mg/dL 1.6-2.6 [facility] Laboratory - Hematology and Cell countsOrdered By: Fabio Tovar on 08-07-2023 Nucleated RBC/100 WBC (Bld) [Ratio] 0 % 0-5 [facility] Review by pathologistOrdered By: Fabio Tovar on 08-07-2023 Pathologist review Max (Unsp spec) [Interp] Tiffanie gandhi [facility] Pathologist review Max (Unsp spec) [Interp] Reviewed [facility] Comment on above: Previous reported re sult: Tiffanie gandhi Edited by: VARUN on 08/09/23:0937Neutrophilic leukocytosis.Clinical correlation necessary.Miguel Larkin M.D. 08/09/23 AMENDED REPORT 08/09/23 0937 PATH REV previously reported as: Tiffanie gandhi Serum or plasma thyroid stim ulating hormone (TSH) measurement (units/volume)Ordered By: Melly Leong on 08-07-2023 TSH Qn 0.65 uIU/mL 0.358-3.74 [facility] No Panel InformationOrdered By: Mechelle Marquez on 08-04-2023 Troponin I High Sensitivity 25 pg/mL 3.0-78.0 [facility] Comment on above: Please Note: New Charlee t Units and Gender Specific Reference Ranges. For more information see Policy Stat Procedure [place] High Sensitivity Troponin (TNIH) and attachments. Absolute lymphocyte countOrd ered By: Alethea Jackson on 08-03-2023 Lymphocytes Auto (Unsp spec) [#/Vol] 2.92 10*3/uL 0.83-4.51 [facility] Activated partial thrombopla stin time (aPTT) in platelet poor plasma by coagulation aOrdered By: Alethea Jackson on 08-03-2023 aPTT Coag (PPP) [Time] 32.8 s 24.1-36.2 [facility] Automated lymphocyte count a s percentage of total leukocytesOrdered By: Alethea Jackson on 08-03-2023 Lymphocytes/100 WBC Auto (Unsp spec) 29.0 % 19-41 [facility] Basophil percentageOrdered B y: Alethea Jackson on 08-03-2023 Basophils/100 WBC (Bld) 0.7 % 0-1 [facility] Bilirubin [Mass/Vol] 0.30 mg/dL 0.20-1.00 [facility] Comment on above: For patients on eltr ombopag therapy, use of Dimension [place] TBIL is not recommended. Chloride [Moles/Vol] 115 mmol/L 98-107 [facility] Eosinophils/100 WBC (Bld) 2.2 % 0-5 [facility] Glucose [Mass/Vol] 88 mg/dL 74-106 [facility] Hemoglobin (Bld) [Mass/Vol] 13.5 g/dL 13.0-16.5 [facility] Monocytes/100 WBC (Bld) 8.9 % 0-10 [facility] Neutrophils (Bld) [#/Vol] 5.8 10*3/uL 2.0-7.7 [facility] Neutrophils/100 WBC (Bld) 57.5 % 47-70 [facility] Potassium [Moles/Vol] 4.0 mmol/L 3.5-5.1 [facility] Comment on above: Slight Hemolysis, Re sult may be falsely increased. Protein [Mass/Vol] 7.1 g/dL 6.4-8.2 [facility] Sodium [Moles/Vol] 143 mmol/L 136-145 [facility] WBC (Bld) [#/Vol] 10.1 10*3/uL 4.4-11.0 [facility] Determination of erythrocyte mean corpuscular volume (MCV)Ordered By: Alethea Jackson on 08-03-2023 MCV (RBC) [Entitic vol] 93.8 fL 80-94 [facility] Erythrocyte distribution wid th ratioOrdered By: Alethea Jackson on 08-03-2023 Erythrocyte distribution width (RBC) [Ratio] 13.0 % 11.6-14.6 [facility] Erythrocyte distribution wid th standard deviationOrdered By: Alethea Jackson on 08-03-2023 Erythrocyte distribution width (RBC) [Entitic vol] 44.4 fL 35.1-43.9 [facility] Hematocrit Auto (Bld) [Volum e fraction]Ordered By: Alethea Jackson on 08-03-2023 Hematocrit (Bld) [Volume fraction] 40.9 % 40-54 [facility] Immature granulocytes/100 WB C Auto (Bld)Ordered By: Alethea Jackson on 08-03-2023 Immature granulocytes/100 WBC (Bld) 1.700 % 0.0-0.9 [facility] Comment on above: IG% - Immature Granu locytes (promyelocytes, myelocytes and metamyelocytes) > 1% indicates that a LEFT SHIFT is Present. Laboratory - Chemistry and C hemistry - challengeOrdered By: Alethea Jackson on 08-03-2023 Albumin/Globulin [Mass ratio] 1.2 {ratio} 0.9-2.4 [facility] ALP [Catalytic activity/Vol] 65 U/L 45-117 [facility] ALT [Catalytic activity/Vol] 27 U/L 16-61 [facility] CO2 [Moles/Vol] 18.0 mmol/L 21.0-32.0 [facility] Globulin (S) [Mass/Vol] 3.3 g/dL 2.2-4.2 [facility] Lipase [Catalytic activity/Vol] 61 U/L 13-75 [facility] Comment on above: Please note:LIPASE r evised reference range effective 22. New Lipase methodology. Expected to produce lower values than the previous assay method. NEW Reference Range: 13 - 75 U/L Magnesium [Mass/Vol] 2.3 mg/dL 1.6-2.6 [facility] Comment on above: Slight Hemolysis, Re sult may be falsely increased. Urea nitrogen/Creatinine [Mass ratio] 16.1 mg/mg 10-20 [facility] Laboratory - CoagulationOrde red By: Alethea Jackson on 08-03-2023 INR Coag (Bld) [Relative time] 0.9 {INR} [facility] PT Coag (PPP) [Time] 12.6 s 11.7-14.9 [facility] Laboratory - Hematology and Cell countsOrdered By: Alethea Jackson on 08-03-2023 MCH (RBC) [Entitic mass] 31.0 pg 27.0-32.0 [facility] MCHC (RBC) [Mass/Vol] 33.0 g/dL 32-36 [facility] Nucleated RBC/100 WBC (Bld) [Ratio] 0 % 0-5 [facility] Platelet mean volume (Bld) [Entitic vol] 10.2 fL 6.2-12.0 [facility] Platelets (Bld) [#/Vol] 184 10*3/uL 150-450 [facility] No Panel InformationOrdered By: Alethea Jackson on 08-03-2023 Troponin I High Sensitivity 23 pg/mL 3.0-78.0 [facility] Comment on above: Please Note: New Charlee t Units and Gender Specific Reference Ranges. For more information see Policy Stat Procedure [place] High Sensitivity Troponin (TNIH) and attachments. Estimated Creatinine Clearance Calc 55.86 ml/min [facility] Estimated GFR (MDRD) Amer 74 mL/min >60 [facility] Comment on above: GFR Calc Estimated GFR (MDRD) Non-Af Amer 61 mL/min >60 [facility] Comment on above: Non- GFR Calc RBC Auto (Bld) [#/Vol]Ordere d By: Alethea Jackson on 08-03-2023 RBC (Bld) [#/Vol] 4.36 10*6/uL 4.6-6.2 [facility] Serum or plasma calcium efrain urement (mass/volume)Ordered By: Alethea Jackson on 08-03-2023 Calcium [Mass/Vol] 9.0 mg/dL 8.5-10.1 [facility] Serum or plasma creatinine m easurement (mass/volume)Ordered By: Alethea Jackson on 08-03-2023 Creatinine [Mass/Vol] 1.24 mg/dL 0.70-1.30 [facility] Comment on above: The validity of the calculated GFR & GFRAA in patients over 70 years has not been determined. Clinical correlation is essential. Serum or plasma urea nitroge n measurement (mass/volume)Ordered By: Alethea Jackson on 08-03-2023 Urea nitrogen [Mass/Vol] 20 mg/dL 7-18 [facility] Thin prep Papanicolaou smear with manual screeningOrdered By: Alethea Jackson on 08-03-2023 Thin prep Papanicolaou smear with manual screening 3.8 g/dL 3.2-5.0 [facility] Thin prep Papanicolaou smear with manual screening 22 U/L 15-37 [facility] Comment on above: Slight Hemolysis, Re sult may be falsely increased. Thin prep Papanicolaou smear with manual screening 10 5-15 [facility] Basophil percentageOrdered B y: Dirk Emerson on 07-24-2023 Basophil percentage 0.08 ng/mL 0.0-4.0 [facility] Comment on above: This test was perfor med using the TPSA assay method for the[employer] chemistry system. Values obtained with differentassay methods cannot be used interchangably.When changing PSA assays in the course of monitoring apatient, additional sequential testing should be carriedout to confirm baseline values. Absolute lymphocyte countOrd ered By: Chaparro Johns on 01-12-2023 Lymphocytes Auto (Unsp spec) [#/Vol] 2.19 10*3/uL 0.83-4.51 [facility] Basophil percentageOrdered B y: Chaparro Johns on 01-12-2023 Basophils/100 WBC (Bld) 0.9 % 0-1 [facility] Chloride [Moles/Vol] 110 mmol/L 98-107 [facility] Cholesterol [Mass/Vol] 288 mg/dL <200 [facility] Comment on above: <200 mg/dL Desirable 200-240 mg/dL Borderline >240 mg/dL High Risk Eosinophils/100 WBC (Bld) 3.4 % 0-5 [facility] Glucose [Mass/Vol] 103 mg/dL 74-106 [facility] Comment on above: Fasting Glucose resu lt from 100 to 125 mg/dL suggests IMPAIRED HOMEOSTASIS per A.D.A. criteria. Neutrophils (Bld) [#/Vol] 3.3 10*3/uL 2.0-7.7 [facility] Neutrophils/100 WBC (Bld) 50.0 % 47-70 [facility] Potassium [Moles/Vol] 4.0 mmol/L 3.5-5.1 [facility] Sodium [Moles/Vol] 141 mmol/L 136-145 [facility] Triglyceride [Mass/Vol] 791 mg/dL <199 [facility] Comment on above: The drugs N-Acetylcy steine and Metamizole may falsely depress this assay. TRIGLYCERIDE IS GREATER THAN 400 mg/dL. LDL RESULT IS INVALID AND WILL NOT BE REPORTED.Serum Triglycerides Reference Interval Normal <150 mg/dL Borderline high 150 - 199 mg/dL High 200 - 499 mg/dL Very High > or = 500 mg/dL WBC (Bld) [#/Vol] 6.5 10*3/uL 4.4-11.0 [facility] Blood erythrocytes count (nu mber/volume)Ordered By: Chaparro Johns on 01-12-2023 RBC (Bld) [#/Vol] 4.17 10*6/uL 4.6-6.2 [facility] Blood hemoglobin measurement (mass/volume)Ordered By: Chaparro Johns on 01-12-2023 Hemoglobin (Bld) [Mass/Vol] 13.2 g/dL 13.0-16.5 [facility] Blood lymphocytes/100 leukoc ytesOrdered By: Chaparro Johns on 01-12-2023 Lymphocytes/100 WBC (Bld) 33.6 % 19-41 [facility] Blood monocytes/100 leukocyt esOrdered By: Chaparro Johns on 01-12-2023 Monocytes/100 WBC (Bld) 10.9 % 0-10 [facility] Blood platelet mean volumeOr dered By: Chaparro Johns on 01-12-2023 Platelet mean volume (Bld) [Entitic vol] 9.7 fL 6.2-12.0 [facility] Determination of erythrocyte mean corpuscular volume (MCV)Ordered By: Chaparro Johns on 01-12-2023 MCV (RBC) [Entitic vol] 95.7 fL 80-94 [facility] Hematocrit Auto (Bld) [Volum e fraction]Ordered By: Chaparro Johns on 01-12-2023 Hematocrit (Bld) [Volume fraction] 39.9 % 40-54 [facility] Laboratory - Chemistry and C hemistry - challengeOrdered By: Chaparro Johns on 01-12-2023 CO2 [Moles/Vol] 25.0 mmol/L 21.0-32.0 [facility] Urea nitrogen/Creatinine [Mass ratio] 13.1 mg/mg 10-20 [facility] Laboratory - Hematology and Cell countsOrdered By: Chaparro Johns on 01-12-2023 Erythrocyte distribution width (RBC) [Entitic vol] 47.5 fL 35.1-43.9 [facility] Erythrocyte distribution width (RBC) [Ratio] 13.5 % 11.6-14.6 [facility] Immature granulocytes/100 WBC (Bld) 1.200 % 0.0-0.9 [facility] Comment on above: IG% - Immature Granu locytes (promyelocytes, myelocytes and metamyelocytes) > 1% indicates that a LEFT SHIFT is Present. MCH (RBC) [Entitic mass] 31.7 pg 27.0-32.0 [facility] Nucleated RBC/100 WBC (Bld) [Ratio] 0 % 0-5 [facility] MCHC Auto (RBC) [Mass/Vol]Or dered By: Chaparro Johns on 01-12-2023 MCHC (RBC) [Mass/Vol] 33.1 g/dL 32-36 [facility] No Panel InformationOrdered By: Chaparro Johns on 01-12-2023 Estimated Creatinine Clearance Calc 46.35 ml/min [facility] Estimated GFR (MDRD) Amer 70 mL/min >60 [facility] Comment on above: GFR Calc Estimated GFR (MDRD) Non-Af Amer 58 mL/min >60 [facility] Comment on above: Non- GFR Calc Thyroid Stimulating Hormone (TSH) 1.97 uIU/mL 0.358-3.74 [facility] Platelets bldOrdered By: Caroline Johns on 01-12-2023 Platelets (Bld) [#/Vol] 173 10*3/uL 150-450 [facility] Serum or plasma calcium efrain urement (mass/volume)Ordered By: Chaparro Johns on 01-12-2023 Calcium [Mass/Vol] 8.9 mg/dL 8.5-10.1 [facility] Serum or plasma cholesterol in HDL measurement (mass/volume)Ordered By: Chaparro Johns on 01-12-2023 Cholesterol in HDL [Mass/Vol] 46 mg/dL >40 [facility] Comment on above: The drugs N-Acetylcy steine and Metamizole may falsely depress this assay. Reference Range HDL <40 mg/dL Low HDL Cholesterol HDL >or= 60 mg/dL High HDL Cholesterol Serum or plasma cholesterol in VLDL measurement (mass/volume)Ordered By: Chaparro Johns on 01-12-2023 Cholesterol in VLDL [Mass/Vol] TNP [facility] Comment on above: Test not performed Serum or plasma creatinine m easurement (mass/volume)Ordered By: Chaparro Johns on 01-12-2023 Creatinine [Mass/Vol] 1.30 mg/dL 0.70-1.30 [facility] Comment on above: The validity of the calculated GFR & GFRAA in patients over 70 years has not been determined. Clinical correlation is essential. Serum or plasma low density lipoprotein (LDL) cholesterol measurement (mass/volume)Ordered By: Chaparro Johns on 01-12-2023 Cholesterol in LDL [Mass/Vol] TNP [facility] Comment on above: Test not performed Serum or plasma urea nitroge n measurement (mass/volume)Ordered By: Chaparro Johns on 01-12-2023 Urea nitrogen [Mass/Vol] 17 mg/dL 12-12 [facility] Thin prep Papanicolaou smear with manual screeningOrdered By: Chaparro Johns on 01-12-2023 Thin prep Papanicolaou smear with manual screening 6 10-09 [facility] Absolute lymphocyte countOrd ered By: Van Umaña on 01-11-2023 Lymphocytes Auto (Unsp spec) [#/Vol] 2.05 10*3/uL 0.83-4.51 [facility] Basophil percentageOrdered B y: Van Umaña on 01-11-2023 Basophil percentage 0 SEEN /hpf 0-5 [facility] Ammonia (P) [Moles/Vol] 21.0 umol/L 11-32 [facility] Basophils/100 WBC (Bld) 0.8 % 0-1 [facility] Bilirubin [Mass/Vol] 0.60 mg/dL 0.20-1.00 [facility] Comment on above: For patients on eltr ombopag therapy, use of Dimension [place] TBIL is not recommended. Chloride [Moles/Vol] 109 mmol/L 98-107 [facility] Eosinophils/100 WBC (Bld) 1.9 % 0-5 [facility] Glucose [Mass/Vol] 95 mg/dL 74-106 [facility] Neutrophils (Bld) [#/Vol] 5.1 10*3/uL 2.0-7.7 [facility] Neutrophils/100 WBC (Bld) 61.3 % 47-70 [facility] Potassium [Moles/Vol] 4.2 mmol/L 3.5-5.1 [facility] Protein [Mass/Vol] 7.1 g/dL 6.4-8.2 [facility] Sodium [Moles/Vol] 141 mmol/L 136-145 [facility] WBC (Bld) [#/Vol] 8.3 10*3/uL 4.4-11.0 [facility] Bilirubin Test strip Ql (U)O rdered By: Van Umaña on 01-11-2023 Bilirubin Ql (U) Negative Negative [facility] Blood erythrocytes count (nu mber/volume)Ordered By: Van Umaña on 01-11-2023 RBC (Bld) [#/Vol] 4.53 10*6/uL 4.6-6.2 [facility] Blood hemoglobin measurement (mass/volume)Ordered By: Van Umaña on 01-11-2023 Hemoglobin (Bld) [Mass/Vol] 14.5 g/dL 13.0-16.5 [facility] Blood lymphocytes/100 leukoc ytesOrdered By: Van Umaña on 01-11-2023 Lymphocytes/100 WBC (Bld) 24.8 % 19-41 [facility] Blood monocytes/100 leukocyt esOrdered By: Van Umaña on 01-11-2023 Monocytes/100 WBC (Bld) 9.4 % 0-10 [facility] Blood platelet mean volumeOr dered By: Van Umaña on 01-11-2023 Platelet mean volume (Bld) [Entitic vol] 9.3 fL 6.2-12.0 [facility] Determination of erythrocyte mean corpuscular volume (MCV)Ordered By: Van Umaña on 01-11-2023 MCV (RBC) [Entitic vol] 94.9 fL 80-94 [facility] Direct bilirubinOrdered By: Van Umaña on 01-11-2023 Bilirubin.direct [Mass/Vol] 0.15 mg/dL 0.00-0.30 [facility] Glucose Glucometer (dC) [M ass/Vol]Ordered By: Stevan Max on 01-11-2023 Glucose [Mass/Vol] 90 mg/dL 74-106 [facility] Comment on above: MANAGEMENT OF PATIEN T CARE PER NURSING PROTOCOL Hematocrit Auto (Bld) [Volum e fraction]Ordered By: Van Umaña on 01-11-2023 Hematocrit (Bld) [Volume fraction] 43.0 % 40-54 [facility] INR in Blood by Coagulation assayOrdered By: Van Umaña on 01-11-2023 INR Coag (Bld) [Relative time] 0.9 {INR} [facility] Ketones Test strip Ql (U)Ord ered By: Van Umaña on 01-11-2023 Ketones Ql (U) Negative Negative [facility] Laboratory - Chemistry and C hemistry - challengeOrdered By: Van Umaña on 01-11-2023 ALP [Catalytic activity/Vol] 66 U/L 45-117 [facility] ALT [Catalytic activity/Vol] 28 U/L 16-61 [facility] CO2 [Moles/Vol] 27.0 mmol/L 21.0-32.0 [facility] Globulin (S) [Mass/Vol] 3.3 g/dL 2.2-4.2 [facility] Urea nitrogen/Creatinine [Mass ratio] 14.2 mg/mg 10-20 [facility] Laboratory - CoagulationOrde red By: Van Umaña on 01-11-2023 aPTT Coag (Bld) [Time] 25.6 s 24.1-36.2 [facility] PT Coag (PPP) [Time] 12.3 s 11.7-14.9 [facility] Laboratory - Hematology and Cell countsOrdered By: Van Umaña on 01-11-2023 Erythrocyte distribution width (RBC) [Entitic vol] 46.2 fL 35.1-43.9 [facility] Erythrocyte distribution width (RBC) [Ratio] 13.4 % 11.6-14.6 [facility] Immature granulocytes/100 WBC (Bld) 1.800 % 0.0-0.9 [facility] Comment on above: IG% - Immature Granu locytes (promyelocytes, myelocytes and metamyelocytes) > 1% indicates that a LEFT SHIFT is Present. MCH (RBC) [Entitic mass] 32.0 pg 27.0-32.0 [facility] Nucleated RBC/100 WBC (Bld) [Ratio] 0 % 0-5 [facility] MCHC Auto (RBC) [Mass/Vol]Or dered By: Van Umaña on 01-11-2023 MCHC (RBC) [Mass/Vol] 33.7 g/dL 32-36 [facility] Mucus LM Ql (Urine sed)Order ed By: Van Umaña on 01-11-2023 Mucus Ql (Urine sed) 0 SEEN /hpf [facility] Nitrite Test strip Ql (U)Ord ered By: Van Umaña on 01-11-2023 Nitrite Ql (U) Negative Negative [facility] No Panel InformationOrdered By: Chaparro Johns on 01-11-2023 Troponin I High Sensitivity 25 pg/mL 3.0-78.0 [facility] Comment on above: Please Note: New Charlee t Units and Gender Specific Reference Ranges. For more information see Policy Stat Procedure [place] High Sensitivity Troponin (TNIH) and attachments. No Panel InformationOrdered By: Van Umaña on 01-11-2023 Estimated Creatinine Clearance Calc 44.97 ml/min [facility] Estimated GFR (MDRD) Amer 67 mL/min >60 [facility] Comment on above: GFR Calc Estimated GFR (MDRD) Non-Af Amer 56 mL/min >60 [facility] Comment on above: Non- GFR Calc Ethyl Alcohol Level < 3.0 mg/dL [facility] Comment on above: The serum:whole bloo d ethanol ratio is approximately 1.14and varies slightly with hematocrit. Medical Alcohol reference interval and critical value innon-tolerant individuals; 50 - 100 Impairment 100 Intoxication 100 - 250 Severe Poisoning 250 - 400 Deep/possible fatal coma Platelets bldOrdered By: Jacqueline Umaña on 01-11-2023 Platelets (Bld) [#/Vol] 179 10*3/uL 150-450 [facility] Protein Test strip Ql (U)Ord ered By: Vna Umaña on 01-11-2023 Protein Ql (U) Negative Negative [facility] Serum or plasma albumin efrain urement (mass/volume)Ordered By: Van Umaña on 01-11-2023 Albumin [Mass/Vol] 3.8 g/dL 3.2-5.0 [facility] Serum or plasma calcium efrain urement (mass/volume)Ordered By: Van Umaña on 01-11-2023 Calcium [Mass/Vol] 9.0 mg/dL 8.5-10.1 [facility] Serum or plasma creatinine m easurement (mass/volume)Ordered By: Van Umaña on 01-11-2023 Creatinine [Mass/Vol] 1.34 mg/dL 0.70-1.30 [facility] Comment on above: The validity of the calculated GFR & GFRAA in patients over 70 years has not been determined. Clinical correlation is essential. Serum or plasma urea nitroge n measurement (mass/volume)Ordered By: Van Umaña on 01-11-2023 Urea nitrogen [Mass/Vol] 19 mg/dL 7-18 [facility] Squamous epithelial cells de tection in urine sediment by light microscopyOrdered By: Van Umaña on 01-11-2023 Epithelial cells.squamous LM Ql (Urine sed) 0-5 SEEN /hpf 0-5 [facility] Thin prep Papanicolaou smear with manual screeningOrdered By: Van Umaña on 01-11-2023 Thin prep Papanicolaou smear with manual screening 22 U/L 15-37 [facility] Thin prep Papanicolaou smear with manual screening 5 5-15 [facility] Urine blood detectionOrdered By: Van Umaña on 01-11-2023 RBC Ql (U) 10 /ul Negative [facility] [facility] RBC Ql (U) 0-5 SEEN /hpf 0-5 [facility] Urine clarityOrdered By: Jacqueline Umaña on 01-11-2023 Clarity (U) Clear Clear [facility] Urine color determinationOrd ered By: Van Umaña on 01-11-2023 Color (U) Yellow Yellow [facility] Urine glucose detectionOrder ed By: Van Umaña on 01-11-2023 Glucose Ql (U) Normal mg/dl Normal [facility] Urine leukocyte esterase det ection by dipstickOrdered By: Van Umaña on 01-11-2023 Leukocyte esterase Test strip Ql (U) Negative Negative [facility] Urine pHOrdered By: Van Umaña on 01-11-2023 pH (U) 6.5 [pH] 5.0 - 8.0 [facility] Urine sediment bacteria coun t by microscopy (number/high power field)Ordered By: Van Umaña on 01-11-2023 Bacteria LM.HPF (Urine sed) [#/Area] 0 /[HPF] None Seen [facility] Urine specific gravity measu rementOrdered By: Van Umaña on 01-11-2023 Specific gravity (U) [Rel density] 1.010 1.002-1.030 [facility] Urobilinogen Auto test strip Ql (U)Ordered By: Van Umaña on 01-11-2023 Urobilinogen Ql (U) Normal mg/dl Normal [facility] Absolute lymphocyte countOrd ered By: Dr. England on 08-29-2022 Lymphocytes Auto (Unsp spec) [#/Vol] 2.15 10*3/uL 0.83-4.51 [facility] Basophil percentageOrdered B y: Dr. England on 08-29-2022 Basophils/100 WBC (Bld) 0.8 % 0-1 [facility] Bilirubin [Mass/Vol] 0.50 mg/dL 0.20-1.00 [facility] Comment on above: For patients on eltr ombopag therapy, use of Dimension [place] TBIL is not recommended. Chloride [Moles/Vol] 109 mmol/L 98-107 [facility] Eosinophils/100 WBC (Bld) 2.9 % 0-5 [facility] Glucose [Mass/Vol] 100 mg/dL 74-106 [facility] Comment on above: Fasting Glucose resu lt from 100 to 125 mg/dL suggests IMPAIRED HOMEOSTASIS per A.D.A. criteria. Neutrophils (Bld) [#/Vol] 4.1 10*3/uL 2.0-7.7 [facility] Neutrophils/100 WBC (Bld) 56.6 % 47-70 [facility] Potassium [Moles/Vol] 3.5 mmol/L 3.5-5.1 [facility] Protein [Mass/Vol] 7.0 g/dL 6.4-8.2 [facility] Sodium [Moles/Vol] 139 mmol/L 136-145 [facility] WBC (Bld) [#/Vol] 7.2 10*3/uL 4.4-11.0 [facility] Blood erythrocytes count (nu mber/volume)Ordered By: Dr. England on 08-29-2022 RBC (Bld) [#/Vol] 4.41 10*6/uL 4.6-6.2 [facility] Blood hemoglobin measurement (mass/volume)Ordered By: Dr. England on 08-29-2022 Hemoglobin (Bld) [Mass/Vol] 14.3 g/dL 13.0-16.5 [facility] Blood lymphocytes/100 leukoc ytesOrdered By: Dr. England on 08-29-2022 Lymphocytes/100 WBC (Bld) 29.7 % 19-41 [facility] Blood monocytes/100 leukocyt esOrdered By: Dr. England on 08-29-2022 Monocytes/100 WBC (Bld) 9.0 % 0-10 [facility] Blood platelet mean volumeOr dered By: Dr. England on 08-29-2022 Platelet mean volume (Bld) [Entitic vol] 9.5 fL 6.2-12.0 [facility] Determination of erythrocyte mean corpuscular volume (MCV)Ordered By: Dr. England on 08-29-2022 MCV (RBC) [Entitic vol] 96.4 fL 80-94 [facility] Hematocrit Auto (Bld) [Volum e fraction]Ordered By: Dr. England on 08-29-2022 Hematocrit (Bld) [Volume fraction] 42.5 % 40-54 [facility] Laboratory - Chemistry and C hemistry - challengeOrdered By: Dr. England on 08-29-2022 ALP [Catalytic activity/Vol] 59 U/L 45-117 [facility] ALT [Catalytic activity/Vol] 24 U/L 16-61 [facility] CO2 [Moles/Vol] 27.0 mmol/L 21.0-32.0 [facility] Globulin (S) [Mass/Vol] 3.2 g/dL 2.2-4.2 [facility] Urea nitrogen/Creatinine [Mass ratio] 18.0 mg/mg 10-20 [facility] Laboratory - CoagulationOrde red By: Dr. Max on 08-29-2022 aPTT Coag (Bld) [Time] 54.0 s 24.1-36.2 [facility] Laboratory - Hematology and Cell countsOrdered By: Dr. England on 08-29-2022 Erythrocyte distribution width (RBC) [Entitic vol] 46.0 fL 35.1-43.9 [facility] Erythrocyte distribution width (RBC) [Ratio] 12.9 % 11.6-14.6 [facility] Immature granulocytes/100 WBC (Bld) 1.000 % 0.0-0.9 [facility] Comment on above: IG% - Immature Granu locytes (promyelocytes, myelocytes and metamyelocytes) > 1% indicates that a LEFT SHIFT is Present. MCH (RBC) [Entitic mass] 32.4 pg 27.0-32.0 [facility] Nucleated RBC/100 WBC (Bld) [Ratio] 0 % 0-5 [facility] MCHC Auto (RBC) [Mass/Vol]Or dered By: Dr. England on 08-29-2022 MCHC (RBC) [Mass/Vol] 33.6 g/dL 32-36 [facility] No Panel InformationOrdered By: Dr. England on 08-29-2022 Estimated Creatinine Clearance Calc 54.28 ml/min [facility] Estimated GFR (MDRD) Amer 84 mL/min >60 [facility] Comment on above: GFR Calc Estimated GFR (MDRD) Non-Af Amer 69 mL/min >60 [facility] Comment on above: Non- GFR Calc Platelets bldOrdered By: Dr. England on 08-29-2022 Platelets (Bld) [#/Vol] 153 10*3/uL 150-450 [facility] Serum or plasma albumin efrain urement (mass/volume)Ordered By: Dr. England on 08-29-2022 Albumin [Mass/Vol] 3.8 g/dL 3.2-5.0 [facility] Serum or plasma albumin/glob ulin mass ratioOrdered By: Dr. England on 08-29-2022 Albumin/Globulin [Mass ratio] 1.2 {ratio} 0.9-2.4 [facility] Serum or plasma calcium efrain urement (mass/volume)Ordered By: Dr. England on 08-29-2022 Calcium [Mass/Vol] 9.2 mg/dL 8.5-10.1 [facility] Serum or plasma creatinine m easurement (mass/volume)Ordered By: Dr. England on 08-29-2022 Creatinine [Mass/Vol] 1.11 mg/dL 0.70-1.30 [facility] Comment on above: The validity of the calculated GFR & GFRAA in patients over 70 years has not been determined. Clinical correlation is essential. Serum or plasma urea nitroge n measurement (mass/volume)Ordered By: Dr. England on 08-29-2022 Urea nitrogen [Mass/Vol] 20 mg/dL 7-18 [facility] Thin prep Papanicolaou smear with manual screeningOrdered By: Dr. England on 08-29-2022 Thin prep Papanicolaou smear with manual screening 23 U/L 15-37 [facility] Thin prep Papanicolaou smear with manual screening 3 5-15 [facility] Absolute lymphocyte countOrd ered By: Dr. Umaña on 08-28-2022 Lymphocytes Auto (Unsp spec) [#/Vol] 2.51 10*3/uL 0.83-4.51 [facility] Basophil percentageOrdered B y: Dr. England on 08-28-2022 Basophil percentage 2.2 mg/dL 2.5-4.9 [facility] Basophil percentageOrdered B y: Dr. Umaña on 08-28-2022 Basophils/100 WBC (Bld) 0.5 % 0-1 [facility] Chloride [Moles/Vol] 110 mmol/L 98-107 [facility] Eosinophils/100 WBC (Bld) 2.1 % 0-5 [facility] Glucose [Mass/Vol] 87 mg/dL 74-106 [facility] Neutrophils (Bld) [#/Vol] 4.7 10*3/uL 2.0-7.7 [facility] Neutrophils/100 WBC (Bld) 57.4 % 47-70 [facility] Potassium [Moles/Vol] 3.7 mmol/L 3.5-5.1 [facility] Sodium [Moles/Vol] 142 mmol/L 136-145 [facility] WBC (Bld) [#/Vol] 8.2 10*3/uL 4.4-11.0 [facility] Blood erythrocytes count (nu mber/volume)Ordered By: Dr. Umaña on 08-28-2022 RBC (Bld) [#/Vol] 4.05 10*6/uL 4.6-6.2 [facility] Blood hemoglobin measurement (mass/volume)Ordered By: Dr. Umaña on 08-28-2022 Hemoglobin (Bld) [Mass/Vol] 13.3 g/dL 13.0-16.5 [facility] Blood lymphocytes/100 leukoc ytesOrdered By: Dr. Umaña on 08-28-2022 Lymphocytes/100 WBC (Bld) 30.5 % 19-41 [facility] Blood monocytes/100 leukocyt esOrdered By: Dr. Umaña on 08-28-2022 Monocytes/100 WBC (Bld) 8.6 % 0-10 [facility] Blood platelet mean volumeOr dered By: Dr. Umaña on 08-28-2022 Platelet mean volume (Bld) [Entitic vol] 10.1 fL 6.2-12.0 [facility] Determination of erythrocyte mean corpuscular volume (MCV)Ordered By: Dr. Umaña on 08-28-2022 MCV (RBC) [Entitic vol] 93.8 fL 80-94 [facility] Hematocrit Auto (Bld) [Volum e fraction]Ordered By: Dr. Umaña on 08-28-2022 Hematocrit (Bld) [Volume fraction] 38.0 % 40-54 [facility] INR in Blood by Coagulation assayOrdered By: Dr. England on 08-28-2022 INR Coag (Bld) [Relative time] 1.0 {INR} [facility] Laboratory - Chemistry and C hemistry - challengeOrdered By: Dr. England on 08-28-2022 Magnesium [Mass/Vol] 2.0 mg/dL 1.6-2.6 [facility] Laboratory - Chemistry and C hemistry - challengeOrdered By: Dr. Umaña on 08-28-2022 CO2 [Moles/Vol] 27.0 mmol/L 21.0-32.0 [facility] Urea nitrogen/Creatinine [Mass ratio] 19.4 mg/mg 10-20 [facility] Laboratory - CoagulationOrde red By: Dr. England on 08-28-2022 PT Coag (PPP) [Time] 12.5 s 11.7-14.9 [facility] Laboratory - Hematology and Cell countsOrdered By: Dr. Umaña on 08-28-2022 Erythrocyte distribution width (RBC) [Entitic vol] 44.6 fL 35.1-43.9 [facility] Erythrocyte distribution width (RBC) [Ratio] 12.9 % 11.6-14.6 [facility] Immature granulocytes/100 WBC (Bld) 0.900 % 0.0-0.9 [facility] Comment on above: IG% - Immature Granu locytes (promyelocytes, myelocytes and metamyelocytes) > 1% indicates that a LEFT SHIFT is Present. MCH (RBC) [Entitic mass] 32.8 pg 27.0-32.0 [facility] Nucleated RBC/100 WBC (Bld) [Ratio] 0 % 0-5 [facility] MCHC Auto (RBC) [Mass/Vol]Or dered By: Dr. Umaña on 08-28-2022 MCHC (RBC) [Mass/Vol] 35.0 g/dL 32-36 [facility] No Panel InformationOrdered By: Dr. England on 08-28-2022 Troponin I High Sensitivity 42 pg/mL 3.0-78.0 [facility] Comment on above: Please Note: New Charlee t Units and Gender Specific Reference Ranges. For more information see Policy Stat Procedure [place] High Sensitivity Troponin (TNIH) and attachments. Ethyl Alcohol Level < 3.0 mg/dL [facility] Comment on above: The serum:whole bloo d ethanol ratio is approximately 1.14and varies slightly with hematocrit. Medical Alcohol reference interval and critical value innon-tolerant individuals; 50 - 100 Impairment 100 Intoxication 100 - 250 Severe Poisoning 250 - 400 Deep/possible fatal coma No Panel InformationOrdered By: Dr. Umaña on 08-28-2022 D-Dimer Quantitative (PE/DVT) 0.55 FEU/ug/m 0.27-0.49 [facility] Comment on above: D-Dimer ELEVATED (>0 .49): Additional studies and clinicalassessments are indicated to conclude diagnosis of:Deep Vein Thrombosis (DVT) or Pulmonary Embolism (PE) Estimated Creatinine Clearance Calc 44.97 ml/min [facility] Estimated GFR (MDRD) Amer 67 mL/min >60 [facility] Comment on above: GFR Calc Estimated GFR (MDRD) Non-Af Amer 56 mL/min >60 [facility] Comment on above: Non- GFR Calc Troponin I High Sensitivity 27 pg/mL 3.0-78.0 [facility] Comment on above: Please Note: New Charlee t Units and Gender Specific Reference Ranges. For more information see Policy Stat Procedure [place] High Sensitivity Troponin (TNIH) and attachments. Platelets bldOrdered By: Dr. Umaña on 08-28-2022 Platelets (Bld) [#/Vol] 180 10*3/uL 150-450 [facility] Serum or plasma calcium efrain urement (mass/volume)Ordered By: Dr. Umaña on 08-28-2022 Calcium [Mass/Vol] 9.5 mg/dL 8.5-10.1 [facility] Serum or plasma creatinine m easurement (mass/volume)Ordered By: Dr. Umaña on 08-28-2022 Creatinine [Mass/Vol] 1.34 mg/dL 0.70-1.30 [facility] Comment on above: The validity of the calculated GFR & GFRAA in patients over 70 years has not been determined. Clinical correlation is essential. Serum or plasma urea nitroge n measurement (mass/volume)Ordered By: Dr. Umaña on 08-28-2022 Urea nitrogen [Mass/Vol] 26 mg/dL 7-18 [facility] Thin prep Papanicolaou smear with manual screeningOrdered By: Dr. Umaña on 08-28-2022 Thin prep Papanicolaou smear with manual screening 5 5-15 [facility] No [facility] 2021 Creatinine [Mass/Vol] 0.7 mg/dL 0.70-1.30 [facility] Work Phone: No Panel Informationon 09-29 Bedside Estimated GFR (eGFR) > 60.0000 mL/min >60 [facility] Work Phone: Basophil percentageon 2021 Creatinine [Mass/Vol] 1.25 mg/dL 0.70-1.30 [facility] Work Phone: No Panel Informationon 08-09 Bedside Estimated GFR (eGFR) > 60 mL/min >60 [facility] Work Phone: Helicobacter pylori breath t est in pediatric patienton 04-26-2021 CO2 post dose urea Ql (Exhl gas) Negative Negative [facility] Work Phone: Comment on above: Performed at: [address] Director: Pablo Pruitt PhD, Phone: [phone] LABORATORYOrdered By: Nick Lira on 04-19-2021 Occult Bld Stl Negative (04/19/21 11:44 AM) [facility] Work Phone: Occult Bld Stl Lot # per [facility] Work Phone: LABORATORYOrdered By: Maya Stratton on 04-19-2021 Albumin BCP dye [Mass/Vol] 3.9 G/dL Invalid Interpretation Code 3.4 - 4.8 G/dL AO ADM SS Albumin/Globulin [Mass ratio] 1.3 {ratio} Invalid Interpretation Code 1.1 - 2.5 ratio AO ADM SS ALP [Catalytic activity/Vol] 58 U/L Invalid Interpretation Code 40 - 135 U/L AO ADM SS ALT With P-5'-P [Catalytic activity/Vol] 28 U/L Invalid Interpretation Code 16 - 63 U/L AO ADM SS AST With P-5'-P [Catalytic activity/Vol] 15 U/L Invalid Interpretation Code 10 - 40 U/L AO ADM SS Basophil, Absolute 0.00 103/mcL Invalid Interpretation Code 0.00 - 0.19 10^3/mcL AO Auto Heme SS Basophils/100 WBC (Bld) 0.4 % Invalid Interpretation Code 0.0 - 2.5 % AO Auto Heme SS Bilirubin [Mass/Vol] 0.4 mg/dL Invalid Interpretation Code 0.2 - 1.0 mg/dL AO ADM SS Calcium [Mass/Vol] 9.9 mg/dL Invalid Interpretation Code 8.4 - 10.2 mg/dL AO ADM SS Chloride [Moles/Vol] 102 mmol/L Invalid Interpretation Code 98 - 107 mmol/L AO ADM SS CO2 [Moles/Vol] 30 mmol/L Invalid Interpretation Code 23 - 31 mmol/L AO ADM SS Creatinine [Mass/Vol] 1.10 mg/dL Invalid Interpretation Code 0.70 - 1.30 mg/dL AO ADM SS Electrolyte Balance 10.0 mEq/L Invalid Interpretation Code AO ADM SS Eosinophil, Absolute 0.10 103/mcL Invalid Interpretation Code 0.00 - 0.40 10^3/mcL AO Auto Heme SS Eosinophils/100 WBC (Bld) 1.2 % Invalid Interpretation Code 0.0 - 7.0 % AO Auto Heme SS Erythrocyte distribution width (RBC) [Ratio] 14.4 % Invalid Interpretation Code 11.5 - 14.5 % AO Auto Heme SS Globulin 2.9 G/dL Invalid Interpretation Code AO ADM SS Glucose [Mass/Vol] 112 mg/dL Invalid Interpretation Code 83 - 110 mg/dL AO ADM SS Hematocrit (Bld) [Volume fraction] 42.8 % Invalid Interpretation Code 42.0 - 52.0 % AO Auto Heme SS Hemoglobin (Bld) [Mass/Vol] 14.6 G/dL Invalid Interpretation Code 14.0 - 18.0 G/dL AO Auto Heme SS Lipase [Catalytic activity/Vol] 271 U/L Invalid Interpretation Code 73 - 393 U/L AO ADM SS Lymphocyte, Absolute 2.10 103/mcL Invalid Interpretation Code 0.77 - 3.85 10^3/mcL AO Auto Heme SS Lymphocytes/100 WBC (Bld) 19.6 % Invalid Interpretation Code 10.0 - 50.0 % AO Auto Heme SS MCH (RBC) [Entitic mass] 32.1 pg Invalid Interpretation Code 27.0 - 31.2 pg AO Auto Heme SS MCHC (RBC) [Mass/Vol] 34.2 G/dL Invalid Interpretation Code 31.8 - 35.4 G/dL AO Auto Heme SS MCV (RBC) [Entitic vol] 93.7 fL Invalid Interpretation Code 80.0 - 94.0 fL AO Auto Heme SS Monocyte, Absolute 0.90 103/mcL Invalid Interpretation Code 0.15 - 1.00 10^3/mcL AO Auto Heme SS Monocytes/100 WBC (Bld) 8.4 % Invalid Interpretation Code 1.7 - 13.0 % AO Auto Heme SS Neutrophil, Absolute 7.60 103/mcL Invalid Interpretation Code 2.85 - 6.16 10^3/mcL AO Auto Heme SS Neutrophils/100 WBC (Bld) 70.4 % Invalid Interpretation Code 37.0 - 80.0 % AO Auto Heme SS Platelet mean volume (Bld) [Entitic vol] 7.5 fL Invalid Interpretation Code 7.4 - 10.4 fL AO Auto Heme SS Platelets (Bld) [#/Vol] 262 103/mcL Invalid Interpretation Code 130 - 400 10^3/mcL AO Auto Heme SS Potassium [Moles/Vol] 4.5 mmol/L Invalid Interpretation Code 3.5 - 5.1 mmol/L AO ADM SS Protein [Mass/Vol] 6.8 G/dL Invalid Interpretation Code 6.4 - 8.2 G/dL AO ADM SS RBC (Bld) [#/Vol] 4.57 106/mcL Invalid Interpretation Code 4.04 - 6.13 10^6/mcL AO Auto Heme SS Sodium [Moles/Vol] 142 mmol/L Invalid Interpretation Code 136 - 145 mmol/L AO ADM SS Urea nitrogen [Mass/Vol] 18 mg/dL Invalid Interpretation Code 7 - 18 mg/dL AO ADM SS Urea nitrogen/Creatinine [Mass ratio] 16 ratio Invalid Interpretation Code 7 - 27 ratio AO ADM SS WBC (Bld) [#/Vol] 10.80 103/mcL Invalid Interpretation Code 4.60 - 10.80 10^3/mcL AO Auto Heme SS LABORATORYOrdered By: SYSTEM SYSTEM on 04-19-2021 GFR 80 ml/min/1.73sqm Invalid Interpretation Code AO Chemistry S GFR Non- 66 ml/min/1.73sqm Invalid Interpretation Code AO Chemistry S LABORATORYOrdered By: Viktoria Matos on 04-02-2021 Albumin BCP dye [Mass/Vol] 4.3 G/dL Invalid Interpretation Code 3.4 - 4.8 G/dL AO ADM SS Albumin/Globulin [Mass ratio] 1.6 {ratio} Invalid Interpretation Code 1.1 - 2.5 ratio AO ADM SS ALP [Catalytic activity/Vol] 58 U/L Invalid Interpretation Code 40 - 135 U/L AO ADM SS ALT With P-5'-P [Catalytic activity/Vol] 24 U/L Invalid Interpretation Code 16 - 63 U/L AO ADM SS AST With P-5'-P [Catalytic activity/Vol] 11 U/L Invalid Interpretation Code 10 - 40 U/L AO ADM SS Basophil, Absolute 0.10 103/mcL Invalid Interpretation Code 0.00 - 0.19 10^3/mcL AO Auto Heme SS Basophils/100 WBC (Bld) 0.8 % Invalid Interpretation Code 0.0 - 2.5 % AO Auto Heme SS Bilirubin [Mass/Vol] 0.7 mg/dL Invalid Interpretation Code 0.2 - 1.0 mg/dL AO ADM SS Calcium [Mass/Vol] 9.9 mg/dL Invalid Interpretation Code 8.4 - 10.2 mg/dL AO ADM SS Chloride [Moles/Vol] 105 mmol/L Invalid Interpretation Code 98 - 107 mmol/L AO ADM SS CO2 [Moles/Vol] 28 mmol/L Invalid Interpretation Code 23 - 31 mmol/L AO ADM SS Creatinine [Mass/Vol] 1.33 mg/dL Invalid Interpretation Code 0.70 - 1.30 mg/dL AO ADM SS Electrolyte Balance 8.0 mEq/L Invalid Interpretation Code AO ADM SS Eosinophil, Absolute 0.10 103/mcL Invalid Interpretation Code 0.00 - 0.40 10^3/mcL AO Auto Heme SS Eosinophils/100 WBC (Bld) 1.4 % Invalid Interpretation Code 0.0 - 7.0 % AO Auto Heme SS Erythrocyte distribution width (RBC) [Ratio] 14.3 % Invalid Interpretation Code 11.5 - 14.5 % AO Auto Heme SS Globulin 2.7 G/dL Invalid Interpretation Code AO ADM SS Glucose [Mass/Vol] 95 mg/dL Invalid Interpretation Code 83 - 110 mg/dL AO ADM SS Hematocrit (Bld) [Volume fraction] 40.5 % Invalid Interpretation Code 42.0 - 52.0 % AO Auto Heme SS Hemoglobin (Bld) [Mass/Vol] 14.0 G/dL Invalid Interpretation Code 14.0 - 18.0 G/dL AO Auto Heme SS Lipase [Catalytic activity/Vol] 258 U/L Invalid Interpretation Code 73 - 393 U/L AO ADM SS Lymphocyte, Absolute 1.60 103/mcL Invalid Interpretation Code 0.77 - 3.85 10^3/mcL AO Auto Heme SS Lymphocytes/100 WBC (Bld) 20.6 % Invalid Interpretation Code 10.0 - 50.0 % AO Auto Heme SS MCH (RBC) [Entitic mass] 31.9 pg Invalid Interpretation Code 27.0 - 31.2 pg AO Auto Heme SS MCHC (RBC) [Mass/Vol] 34.5 G/dL Invalid Interpretation Code 31.8 - 35.4 G/dL AO Auto Heme SS MCV (RBC) [Entitic vol] 92.4 fL Invalid Interpretation Code 80.0 - 94.0 fL AO Auto Heme SS Monocyte, Absolute 0.60 103/mcL Invalid Interpretation Code 0.15 - 1.00 10^3/mcL AO Auto Heme SS Monocytes/100 WBC (Bld) 7.9 % Invalid Interpretation Code 1.7 - 13.0 % AO Auto Heme SS Neutrophil, Absolute 5.50 103/mcL Invalid Interpretation Code 2.85 - 6.16 10^3/mcL AO Auto Heme SS Neutrophils/100 WBC (Bld) 69.3 % Invalid Interpretation Code 37.0 - 80.0 % AO Auto Heme SS Platelet mean volume (Bld) [Entitic vol] 8.0 fL Invalid Interpretation Code 7.4 - 10.4 fL AO Auto Heme SS Platelets (Bld) [#/Vol] 180 103/mcL Invalid Interpretation Code 130 - 400 10^3/mcL AO Auto Heme SS Potassium [Moles/Vol] 3.9 mmol/L Invalid Interpretation Code 3.5 - 5.1 mmol/L AO ADM SS Protein [Mass/Vol] 7.0 G/dL Invalid Interpretation Code 6.4 - 8.2 G/dL AO ADM SS RBC (Bld) [#/Vol] 4.38 106/mcL Invalid Interpretation Code 4.04 - 6.13 10^6/mcL AO Auto Heme SS Sodium [Moles/Vol] 141 mmol/L Invalid Interpretation Code 136 - 145 mmol/L AO ADM SS Troponin I.cardiac DL <= 0.01 ng/mL [Mass/Vol] 9.0 ng/L Invalid Interpretation Code 0.0 - 76.2 ng/L AO ADM SS Urea nitrogen [Mass/Vol] 20 mg/dL Invalid Interpretation Code 7 - 18 mg/dL AO ADM SS Urea nitrogen/Creatinine [Mass ratio] 15 ratio Invalid Interpretation Code 7 - 27 ratio AO ADM SS WBC (Bld) [#/Vol] 8.00 103/mcL Invalid Interpretation Code 4.60 - 10.80 10^3/mcL AO Auto Heme SS LABORATORYOrdered By: SYSTEM SYSTEM on 04-02-2021 GFR 64 ml/min/1.73sqm Invalid Interpretation Code AO Chemistry S GFR Non- 53 ml/min/1.73sqm Invalid Interpretation Code AO Chemistry S CNPComfort 01-20-2020 CNPN Telephone (AGCARDHWG ) LORAINESEBASTIEN Meg ([id number]) 1950 M Date Time Provider Department 01/20/20 ALEKSANDAR JIMENEZARDHRUY During your visit today, we recorded the following information about you: Cinthya Cortés LPN 01/20/2020 9:15 AM Signed Tika pharmacist at [facility] called for clarification of instructions and quantity to be dispensed for the Effient that was ordered this am. CARLOS Todd LPN 01/20/2020 2:21 PM Signed Aleksandar Powell 3 minutes ago (2:08 PM) Loading dose prasgural 60 mg now then 10 mg daily ?. This instead of plavix martin Mrs Owens was called with clarification of instructions and [facility] (not [facility]) was called as well. 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 Date Reviewed: 12/08/2019 Reviewed by: Aleksandar Jimenez - Fully Assessed Reason for Visit: Medication Question [0908] Prescriptions as of 01/20/2020 Sig: PRASUGREL 10 MG TABLET Take 1 tablet by mouth one ti* CELECOXIB 200 MG CAPSULE Take 1 capsule by mouth once * CHOLECALCIFEROL (VITAMIN D3) * Take 1 capsule by mouth one t* FINASTERIDE 5 MG TABLET Take 1 tablet by mouth once d* CLOPIDOGREL 75 MG TABLET Take 1 tablet by mouth once d* ASPIRIN 81 MG CHEWABLE TABLET Take 324 mg by mouth one time* MELATONIN ORAL Take 10 mg by mouth daily at * NITROGLYCERIN 0.4 MG SUBLINGU* Dissolve 1 tablet under the t* ALPRAZOLAM 0.5 MG TABLET Take 1 tablet by mouth three * C-DGBJNY-C-CYSTEINE MISC Take 1 capsule by mouth once * TAMSULOSIN 0.4 MG CAPSULE Take 0.4 mg by mouth once josue* LISINOPRIL 2.5 MG TABLET Take 1 tablet by mouth once d* COLCRYS 0.6 MG TABLET Take 2 pills initially, then * PANTOPRAZOLE 40 MG TABLET,DEL* Take 1 tablet by mouth daily * METOPROLOL TARTRATE 25 MG TAB* Take 0.5 tablets by mouth twi* LACTULOSE 10 GRAM/15 ML ORAL * Take 30 ml by mouth twice josue* VITAMIN B COMPLEX TABLET Take 1 tablet by mouth once d* AMINO ACIDS CAPSULE Take by mouth once daily. 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 TESTICULAR HYPOFUNC NEC [E29.1] 12/21/2006 RECURR DEPR PSYCHOS-MOD [F33.1] 12/21/2006 Sebaceous Cyst [L72.3] 12/31/2007 11/15/2009 Lipoma of Unspecified Site [D17.9] 04/22/2008 11/15/2009 LUMBAGO [M54.5] 04/28/2008 Vitamin D deficiency [E55.9] 01/07/2009 Gouty Arthropathy [274.0] 01/11/2009 02/15/2009 Right Sprain and Strain of Knee and Leg [JHT752*01/22/2009 11/15/2009 Right Rotator Cuff Tear [M75.100] 01/22/2009 01/22/2009 Left Rotator Cuff Tear [M75.100] 01/22/2009 Pseudogout [M11.20] 02/15/2009 Injury caused by lifting [X50.0XXA] 02/22/2009 12/08/2010 CAD (coronary artery disease) [I25.10] 05/18/2009 More... Lipoma of unspecified site [D17.9] 06/07/2010 12/08/2010 Anemia, unspecified [D64.9] 10/11/2010 More... Adj react-emotion NEC [F43.29] 12/01/2010 Depression [F32.9] 12/01/2010 More... 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 Anxiety [F41.9] 11/19/2013 PTSD (post-traumatic stress disorder) [F43.10] 11/19/2013 Insomnia [G47.00] 11/19/2013 Hearing loss [H91.90] 12/17/2013 Dysphagia [R13.10] 12/17/2013 Cervicalgia [M54.2] 06/04/2014 Achilles tendinitis [M76.60] 06/16/2014 Headache, unspecified headache type [R51] 06/19/2014 Cervical spondylosis without myelopathy [M47.81*07/07/2014 Myofascial pain [M79.18] 07/14/2014 DDD (degenerative disc disease), cervical [M50.*07/14/2014 Cervical stenosis of spinal canal [M48.02] 07/14/2014 Trigger little finger of right hand [M65.351] 08/11/2014 Trigger middle finger of left hand [M65.332] 08/11/2014 HTN (hypertension) [I10] 12/28/2014 More... Short-term memory loss [R41.3] 12/28/2014 More... GERD (gastroesophageal reflux disease) [K21.9] 12/28/2014 More... Cognitive decline [R41.89] 01/27/2015 NO SHOW 02/12/2015 06/12/2016 Trigger ring finger of left hand [M65.342] 03/16/2015 Pulmonary embolism (HCC) [I26.99] 08/24/2015 More... 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 JEFFERSON treated with BiPAP [G47.33] 12/17/2018 More... Chronic neck and back pain [M54.2, M54.9, G89.2*12/17/2018 More... Hepatic encephalopathy (HCC) [K72.90] 12/17/2018 More... Chest pain in adult [R07.9] 01/30/2019 More... Hand edema [R60.0] 01/30/2019 More... Positive D dimer [R79.89] 01/30/2019 More... Elevated serum creatinine [R79.89] 01/30/2019 More... S/P coronary artery stent placement, RCA, CX [Z*06/27/2019 Atherosclerosis of [place] artery of both lower *12/08/2019 Encounter Status:Closed by CINTHYA CORTÉS on 01/20/20 [facility] [place] 12-04-2019 CNPN Telephone ([facility]) SEBASTIEN OWENS ([id number]) 1950 M Date Time Provider Department 12/04/19 LAKESHA BRITO (RN) LIU During your visit today, we recorded the following information about you: Lakesha Brito RN, RN 12/04/2019 11:20 AM Signed Attempted to call pt. Regarding Cardiac Rehab Referral-phone cont. rang, no answer, and unable to leave message. 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 Date Reviewed: 11/27/2019 Reviewed by: Yandy (Rn) Quan RN - Fully Assessed Reason for Visit: Cardiac Rehab [Other] Prescriptions as of 12/04/2019 Sig: CLOPIDOGREL 75 MG TABLET Take 1 tablet by mouth once d* ASPIRIN 81 MG CHEWABLE TABLET Take 324 mg by mouth one time* MELATONIN ORAL Take 10 mg by mouth daily at * NITROGLYCERIN 0.4 MG SUBLINGU* Dissolve 1 tablet under the t* ALPRAZOLAM 0.5 MG TABLET Take 1 tablet by mouth three * G-YDILIM-A-CYSTEINE MISC Take 1 capsule by mouth once * CELECOXIB 200 MG CAPSULE Take 200 mg by mouth once josue* TAMSULOSIN 0.4 MG CAPSULE Take 0.4 mg by mouth once josue* LISINOPRIL 2.5 MG TABLET Take 1 tablet by mouth once d* COLCRYS 0.6 MG TABLET Take 2 pills initially, then * PANTOPRAZOLE 40 MG TABLET,DEL* Take 1 tablet by mouth daily * METOPROLOL TARTRATE 25 MG TAB* Take 0.5 tablets by mouth twi* LACTULOSE 10 GRAM/15 ML ORAL * Take 30 ml by mouth twice josue* VITAMIN B COMPLEX TABLET Take 1 tablet by mouth once d* FINASTERIDE 5 MG TABLET Take 5 mg by mouth once daily. AMINO ACIDS CAPSULE Take by mouth once daily. 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 TESTICULAR HYPOFUNC NEC [E29.1] 12/21/2006 RECURR DEPR PSYCHOS-MOD [F33.1] 12/21/2006 Sebaceous Cyst [L72.3] 12/31/2007 11/15/2009 Lipoma of Unspecified Site [D17.9] 04/22/2008 11/15/2009 LUMBAGO [M54.5] 04/28/2008 Vitamin D deficiency [E55.9] 01/07/2009 Gouty Arthropathy [274.0] 01/11/2009 02/15/2009 Right Sprain and Strain of Knee and Leg [YYO710*01/22/2009 11/15/2009 Right Rotator Cuff Tear [M75.100] 01/22/2009 01/22/2009 Left Rotator Cuff Tear [M75.100] 01/22/2009 Pseudogout [M11.20] 02/15/2009 Injury caused by lifting [X50.0XXA] 02/22/2009 12/08/2010 CAD (coronary artery disease) [I25.10] 05/18/2009 More... Lipoma of unspecified site [D17.9] 06/07/2010 12/08/2010 Anemia, unspecified [D64.9] 10/11/2010 More... Adj react-emotion NEC [F43.29] 12/01/2010 Depression [F32.9] 12/01/2010 More... 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 Anxiety [F41.9] 11/19/2013 PTSD (post-traumatic stress disorder) [F43.10] 11/19/2013 Insomnia [G47.00] 11/19/2013 Hearing loss [H91.90] 12/17/2013 Dysphagia [R13.10] 12/17/2013 Cervicalgia [M54.2] 06/04/2014 Achilles tendinitis [M76.60] 06/16/2014 Headache, unspecified headache type [R51] 06/19/2014 Cervical spondylosis without myelopathy [M47.81*07/07/2014 Myofascial pain [M79.18] 07/14/2014 DDD (degenerative disc disease), cervical [M50.*07/14/2014 Cervical stenosis of spinal canal [M48.02] 07/14/2014 Trigger little finger of right hand [M65.351] 08/11/2014 Trigger middle finger of left hand [M65.332] 08/11/2014 HTN (hypertension) [I10] 12/28/2014 More... Short-term memory loss [R41.3] 12/28/2014 More... GERD (gastroesophageal reflux disease) [K21.9] 12/28/2014 More... Cognitive decline [R41.89] 01/27/2015 NO SHOW 02/12/2015 06/12/2016 Trigger ring finger of left hand [M65.342] 03/16/2015 Pulmonary embolism (HCC) [I26.99] 08/24/2015 More... 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 JEFFERSON treated with BiPAP [G47.33] 12/17/2018 More... Chronic neck and back pain [M54.2, M54.9, G89.2*12/17/2018 More... Hepatic encephalopathy (HCC) [K72.90] 12/17/2018 More... Chest pain in adult [R07.9] 01/30/2019 More... Hand edema [R60.0] 01/30/2019 More... Positive D dimer [R79.89] 01/30/2019 More... Elevated serum creatinine [R79.89] 01/30/2019 More... S/P coronary artery stent placement, RCA, CX [Z*06/27/2019 Encounter Status:Closed by LAKESHA BRITO on 12/04/19 Normal [facility] Basic Metabolic Panelon 07-0 Anion gap [Moles/Vol] 10 mmol/L Normal 9-18 [facility] Comment on above: Performed By: #### B MP #### [facility] [address] [place], [place] [address] Calcium [Mass/Vol] 8.6 mg/dL Normal 8.5-10.2 [facility] Comment on above: Performed By: #### B MP #### [facility] [address] [place], [place] [address] Chloride [Moles/Vol] 107 mmol/L High 97-105 [facility] Comment on above: Performed By: #### B MP #### [facility] [address] [place], [place] [address] CO2 Blood 22 mmol/L Normal 22-30 [facility] Comment on above: Performed By: #### B MP #### [facility] [address] [place], [place] [address] Creatinine [Mass/Vol] 1.38 mg/dL High 0.73-1.22 [facility] Comment on above: Performed By: #### B MP #### [facility] [address] [place], [place] [address] Glucose [Mass/Vol] 101 mg/dL High 74-99 [facility] Comment on above: Result Comment: The [place] [employer] (ADA) provides guidance for cutoff values for fasting glucose and random glucose. The ADA defines fasting as no caloric intake for at least 8 hours.Fasting plasma glucose results between 100 to 125 mg/dL indicate increased risk for diabetes (prediabetes). Fasting plasma glucose results greater than or equal to 126 mg/dL meet the criteria for diagnosis of diabetes. In the absence of unequivocal hyperglycemia, results should be confirmed by repeat testing. In a patient with classic symptoms of hyperglycemia or hyperglycemic crisis, random plasma glucose results greater than or equal to 200 mg/dL meet the criteria for diagnosis of diabetes. Reference: Standards of Medical Care in Diabetes 2016; [place] [employer]. Diabetes Care. 2016;39(Suppl 1). Performed By: #### B MP #### [facility] [address] [place], [place] [address] Potassium [Moles/Vol] 3.9 mmol/L Normal 3.7-5.1 [facility] Comment on above: Performed By: #### B MP #### [facility] [address] [place], [place] [address] Sodium [Moles/Vol] 139 mmol/L Normal 136-144 [facility] Comment on above: Performed By: #### B MP #### [facility] [address] [place], [place] [address] Urea nitrogen [Mass/Vol] 21 mg/dL Normal 9-24 [facility] Comment on above: Performed By: #### B MP #### [facility] [address] [place], [place] [address] ECG COMPLETEon 11-28-2019 ECG COMPLETE NAME : SEBASTIEN OWENS PID : [id number] : 1950 Gender : Male Race : ORD : [id number] Procedure Date : Nov 28 2019 06:42:07 Edit Date : Nov 29 2019 19:33:11 Diagnosis:SINUS RHYTHM WITH OCCASIONAL PREMATURE VENTRICULAR COMPLEXES LEFT AXIS DEVIATION ABNORMAL ECG WHEN COMPARED WITH ECG OF 27-NOV-2019 10:34, NO SIGNIFICANT CHANGE WAS FOUND Confirmed by MD ROSSI VINAY ([id number]) on 11/29/2019 7:33:10 PM Ventricular Rate : 71 BPM Atrial Rate : 71 BPM P-R Interval : 158 ms QRS Duration : 112 ms Q-T Interval : 404 ms QTC Calculation(Bazett) : 439 ms P [place] : 44 degrees R [place] : -38 degrees T [place] : 54 degrees Test Reason : Chest Pain Location : 103 : [facility] Overread By : MD ROSSI VINAY Edited By : MD ROSSI VINAY Referred By : , Acquired by : LI DANIELLE Normal [facility] Hemogramon 11-28-2019 Erythrocyte distribution width (RBC) [Ratio] 13.1 % Normal 11.6-14.4 [facility] Comment on above: Performed By: #### C BC1 #### [facility] [address] [place], [place] [address] Hematocrit (Bld) [Volume fraction] 37.8 % Low 40.1-51.0 [facility] Comment on above: Performed By: #### C BC1 #### [address] [address] Hemoglobin (Bld) [Mass/Vol] 12.9 g/dL Low 13.7-17.5 [facility] Comment on above: Performed By: #### C BC1 #### [facility] [address] [place], [place] [address] MCH (RBC) [Entitic mass] 31.7 pg Normal 25.7-32.2 [facility] Comment on above: Performed By: #### C BC1 #### [facility] [address] [place] [address] MCHC (RBC) [Mass/Vol] 34.1 % Normal 32.3-36.5 [facility] Comment on above: Performed By: #### C BC1 #### [facility] [address] [place] [address] MCV (RBC) [Entitic vol] 92.9 fL Normal 83.2-95.6 [facility] Comment on above: Performed By: #### C BC1 #### [facility] [address] [place] [address] Platelet mean volume (Bld) [Entitic vol] 10.1 fL Normal 8.7-12.0 [facility] Comment on above: Performed By: #### C BC1 #### [facility] [address] [place] [address] Platelets (Bld) [#/Vol] 155 thou/cmm Normal 141-365 [facility] Comment on above: Performed By: #### C BC1 #### [facility] [address] [place] [address] RBC (Bld) [#/Vol] 4.07 mil/cmm Low 4.63-6.08 [facility] Comment on above: Performed By: #### C BC1 #### [facility] [address] [place] [address] RDW SD 43.7 fl Normal 36.1-45.8 [facility] Comment on above: Performed By: #### C BC1 #### [facility] [address] [place], [place] [address] WBC (Bld) [#/Vol] 7.58 thou/cmm Normal 4.23-9.07 [facility] Comment on above: Performed By: #### C BC1 #### [facility] [address] [place] [id number] MDRD GFRon 11-28-2019 GFR/1.73 sq M predicted among non-blacks MDRD (S/P/Bld) [Vol rate/Area] 51.03 mL/min/{1.73_m2} Normal >60mL/min/1 .73m2 [facility] Comment on above: Result Comment: If t he patient is , multiply the result by 1.210. Performed By: #### G FR #### [facility] [address] [place] [id number] ALLIED HEALTHon 11-27-2019 ALLIED HEALTH HNO ID: [id number] Author: Lacey Vanegas Service: Cardiac Rehab Author Type: Respiratory Therapist Type: Allied Health Filed: 11/27/2019 3:13 PM Note Text: CARDIAC REHABILITATION PATIENT EDUCATION PROGRESS NOTE Name: Sebastien Owens Date of Service: 11/27/2019 Time of Service: 1500 ASSESSMENT: Risk Factors Identified: Hyperlipidemia Hypertension RECOMMENDATIONS: Patient interested in Phase II Outpatient Cardiac Rehab: No DIAGNOSIS: Percutaneous Cardiac Intervention: PTCA PCI Teaching Points: -Personal Modifiable Risk Factor Identification -Outpatient Cardiac Rehabilitation READINESS TO LEARN: Cognitive Ability: Alert and Oriented Motivation to Learn: Disinterested / avoidant Family Support: Unable to assess - Family not present Instruction Provided To: Patient Patient Learns Best By: Individual Instruction, Written Instruction - Hand-outs and Verbal Instruction Factors Affecting Learning: None Physical Limitations Affecting Learning: None LEARNING RESPONSE: Method Of Instruction: Individual instruction Written instruction - handouts Verbal instruction Patient/Family Response: Verbalizes understanding of: cardiac rehab, risk factors, home walking program, lifting restrictions Follow-up Plan: No further educational needs identified at this time. Instructional Aids Used: Cardiac Rehabilitation Brochure List of Health System Cardiac Rehab Programs Educated or reinforced with patient cardiac risk factors, home activity recommendations, and symptom management. Patient and/or family verbalizes understanding. Not interested in rehab. Signature: Lacey Vanegas, [employer] Pager: [phone] Date: November 27, 2019 Time: 3:11 PM Normal [facility] CASE MGT INIT ASSESon 2019 CASE MGT INIT VICTORINA HNO ID: [id number] Author: Katty Amezcua (Rn) RICHARD Reid Service: Care Management Author Type: Registered Nurse Type: Care Mgt Initial Assessment Filed: 11/27/2019 1:38 PM Note Text: CARE MANAGEMENT: ASSESSMENT AND DISCHARGE PLAN SERVICE DATE: November 27, 2019 SERVICE TIME: 1:35 PRIMARY CARE PHYSICIAN: Afua Middleton MD ADMISSION STATUS: Ambulatory Surgery Needs Prior to Discharge: Ready for Discharge MEDICAL: MEDICARE A AND B Patient/Third Officer Stated Goals: To have reduction in symptoms;To return home to life as it was Health Insurance: Medicare Health Issues Impacting Discharge Plan: None Last Discharge Date: 11/17/19 Is this Within the Past 30 days? Last discharge within 30 days: No Advance Directive: Current Advance Directive: None J[employer] Box Servicer Attempted to Assist with AD Completion: Yes Action: Patient Unwilling Health LiteracyHow often do you need to have someone help you when you read instructions, pamphlets, or other written material from your doctor or pharmacy? : 1 - Never How confident are you filling out medical forms by yourself?: 1 - Extremely If Patient scores > 3 on either question, the following interventions were put into place:: Patient did not score > 3 on either question. Baseline Mental Status Prior to this Illness what was the patient's Baseline Mental Status?: Alert AND Oriented Prior to this illness, has anyone described the patient having any of the following behaviors?: Not Applicable Relationship of the informant to the patient:: Self Functional Status: Independent Does Patient Currently Receive Any Community Services or Home Care?: None Equipment Prior to Admission: None has BIPAP at home SOCIAL: Living Arrangements: Home Lives With: Spouse Financial Resources: EmployedPrimary Contact: Extended Emergency Contact Information Primary Emergency Contact: Rich Owens Address: [address] [place] [address] [place] Relation: Spouse Supportive Patient Contact:: Yes Contact Resources: Family Family Name/Phone: at bedside Social Needs Food insecurity Worry: Never true Inability: Never true Resources Needed: No Social Needs Financial resource strain: Not hard at all Social Needs Transportation needs Medical: No Non-medical: No Caregiver AssessmentCaregiver is ready, willing and able to meet the patient's needs as recommended by the inter-professional team:: Yes Does the patient have an acute stroke diagnosis, or has the patient had a stroke during this admission?: No Patient's perception of need for this admission: * Medication Adherance I am convinced of the importance of my prescription medication: 0 - Agree Completely I worry that my prescription medication will do more harm than good to me : 0 - Disagree Completely I feel financially burdened by my dii-eb-afaqye expenses for my prescription medication:: 0 - Disagree Completely Risk Score: 0 Patient is categorized as: Low risk < 2 Are you interested in bedside delivery of your medications? No [facility] Is Patient Psychosocially Complex?: No ASSESSMENT AND PLAN: post left heart cath Medical Needs: Medical Needs: Two or more chronic diseases Psychosocial Needs: Psychosocial Needs: Mental Health Diagnosis Mental Health Information: per [place] depression FREEDOM OF CHOICE EXPLAINED: [place] of Choice Given: No Reason Not Given: No placements necessary POTENTIAL TRANSITION PLANS Home Patient in Rou-5 post heart cath and stent. He lives with his . No skilled or equipment needs identified. +PCP + transportation +Rx [facility]. SIGNATURE: Katty Reid RN PATIENT NAME: Sebastien Owens DATE: November 27, 2019 TIME: 1:35 PM PAGER/CONTACT #: [phone] Normal [facility] ECG COMPLETEon 11-27-2019 ECG COMPLETE NAME : SEBASTIEN OWENS PID : [id number] : 1950 Gender : Male Race : ORD : [id number] Procedure Date : Nov 27 2019 10:34:34 Edit Date : Nov 29 2019 19:28:43 Diagnosis:SINUS BRADYCARDIA WITH OCCASIONAL PREMATURE VENTRICULAR COMPLEXES LEFT AXIS DEVIATION ABNORMAL ECG NO PREVIOUS ECGS AVAILABLE Confirmed by MD ROSSI VINAY ([id number]) on 11/29/2019 7:28:40 PM Ventricular Rate : 56 BPM Atrial Rate : 56 BPM P-R Interval : 138 ms QRS Duration : 110 ms Q-T Interval : 448 ms QTC Calculation(Bazett) : 432 ms P [place] : 42 degrees R [place] : -35 degrees T [place] : 39 degrees Test Reason : Chest Pain Location : 103 : [facility] Overread By : MD ROSSI VINAY Edited By : MD ROSSI VINAY Referred By : , Acquired by : NORMA PANTOJA [facility] NURSING PROGon 11-27-2019 NURSING PROG HNO ID: [id number] Author: Amanda (Rn) RICHARD Burnett Service: ? Author Type: Registered Nurse Type: Nursing Progress Note Filed: 11/27/2019 4:58 PM Note Text: Patient very agitated and complain of pain over the band covering his hematoma. 2ml air released from that band at this time d/t patient threatening to remove the band totally. Educated patient on importance of the band being on. Patient is agreeable at this time. [facility] HOSPon 11-25-2019 HOSP Patient:Sebastien Owens MRN: Height:5' 6(1.676 m) Weight:214 lb (97.07 kg) Outpatient Medications as of 11/27/19: aspirin 81 mg chewable tablet nitroglycerin sublingual (NITROQUICK) 0.4 mg SL tablet ALPRAZolam (XANAX) 0.5 mg tablet acetylcysteine (L-DJWXZQ-D-CYSTEINE MISC) celecoxib (CELEBREX) 200 mg capsule tamsulosin ER (FLOMAX) 0.4 mg lisinopril 2.5 mg tablet COLCRYS 0.[address] (PROTONIX) 40 mg tablet metoprolol tartrate, short acting, (LOPRESSOR) 25 mg tablet lactulose (DUPHALAC, CONSTULOSE) 10 gram/15 mL solution vitamin b complex (B COMPLEX 1) tab finasteride (PROSCAR) 5 mg tablet Amino Acids (AMINO ACID) cap cholecalciferol, Vitamin D3, (VITAMIN D3) 50,000 unit cap capsule BIPAP Admission/Clinic Administered Medications as of 11/27/19: heparin 1,000 Units in D5W 250 mL heparin 3,000 Units in NaCl 0.9% 500 mL irrigation Problem List: 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] MIXED HYPERLIPIDEMIA [E78.2] 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] Major depressive disorder, recurrent episode, moderate (HCC) [F33.1] Lumbago [M54.5] Vitamin D deficiency [E55.9] Left Rotator Cuff Tear [M75.100] Pseudogout [M11.20] CAD (coronary artery disease) [I25.10] Anemia, unspecified [D64.9] 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] Depression [F32.9] Other pain disorders related to psychological factors [F45.42] Gas [ENC6555] Dyskinesia of esophagus [K22.4] Acute gastritis without mention of hemorrhage [K29.00] 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] Anxiety [F41.9] PTSD (post-traumatic stress disorder) [F43.10] Insomnia [G47.00] Hearing loss [H91.90] Dysphagia [R13.10] Cervicalgia [M54.2] Achilles tendinitis [M76.60] Headache, unspecified headache type [R51] Cervical spondylosis without myelopathy [M47.812] Myofascial pain [M79.18] DDD (degenerative disc disease), cervical [M50.30] Cervical stenosis of spinal canal [M48.02] Trigger little finger of right hand [M65.351] Trigger middle finger of left hand [M65.332] HTN (hypertension) [I10] Short-term memory loss [R41.3] GERD (gastroesophageal reflux disease) [K21.9] Cognitive decline [R41.89] Trigger ring finger of left hand [M65.342] Pulmonary embolism (HCC) [I26.99] 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] Pain of upper abdomen [R10.10] Closed fracture of one rib of right side with routine healing [S22.31XD] JEFFERSON treated with BiPAP [G47.33] Chronic neck and back pain [M54.2, M54.9, G89.29] Hepatic encephalopathy (HCC) [K72.90] Chest pain in adult [R07.9] Hand edema [R60.0] Positive D dimer [R79.89] Elevated serum creatinine [R79.89] S/P coronary artery stent placement, RCA, CX [Z95.5] Allergies: Tramadol Mold Date Verified: 11/27/19 Lab Values Lab Value Units Date High Low POTA* 4.4 mmol/L 11/12/2019 5.1 3.7 ALEX* 39.6 % 11/12/2019 51.0 39.0 Progress Notes ([place] [employer]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 Augusto Silva Ma 11/24/2019 3:50 PM Signed Patient scheduled for heart cath at [facility] on 11/27/19. Patient given instructions at OV today and aware of COVID test needing completed prior. ? Patient scheduled for 2 wk post visit with Dr. Jimenez as well. ? Jackie Silva Ma Progress Notes ([facility]): Jackie Silva Ma 11/24/2019 3:49 PM Signed Patient scheduled for heart cath at [facility] on 11/27/19. Patient given instructions at OV today and aware of COVID test needing completed prior. Patient scheduled for 2 wk [address] visit [address] Jimenez as well. Jackie Silva Ma [facility] 11-24-2019 CNPN Telephone ([facility]) SEBASTIEN OWENS ([id number]) 1950 M Date Time Provider Department 11/24/19 ALEKSANDAR JIMENEZ During your visit today, we recorded the following information about you: Thi Dubois [facility] [place]/24/2019 3:40 PM Signed Schedule [facility] 11/27/[address] Augusto Silva Ma 11/24/2019 3:50 PM Signed Patient scheduled for heart cath at [facility] on 11/27/19. Patient given instructions at OV today and aware of COVID test needing completed prior. ? Patient scheduled for 2 wk [address] visit [address] Jimenez as well. ? 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 Date Reviewed: 11/24/2019 Reviewed by: Aleksandar Jimenez - Fully Assessed Reason for Visit: Procedure [88] Prescriptions as of 11/24/2019 Sig: NITROGLYCERIN 0.4 MG SUBLINGU* Dissolve 1 tablet under the t* ALPRAZOLAM 0.5 MG TABLET Take 1 tablet by mouth three * X-LHUXHF-X-CYSTEINE MISC Take 1 capsule by mouth once * CELECOXIB 200 MG CAPSULE Take 200 mg by mouth once josue* TAMSULOSIN 0.4 MG CAPSULE Take 0.4 mg by mouth once josue* LISINOPRIL 2.5 MG TABLET Take 1 tablet by mouth once d* COLCRYS 0.6 MG TABLET Take 2 pills initially, then * PANTOPRAZOLE 40 MG TABLET,DEL* Take 1 tablet by mouth daily * METOPROLOL TARTRATE 25 MG TAB* Take 0.5 tablets by mouth twi* SUCRALFATE 1 GRAM TABLET Take 1 tablet by mouth before* LACTULOSE 10 GRAM/15 ML ORAL * Take 30 ml by mouth twice josue* VITAMIN B COMPLEX TABLET Take 1 tablet by mouth once d* FINASTERIDE 5 MG TABLET Take 5 mg by mouth once daily. AMINO ACIDS CAPSULE Take by mouth once daily. 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 Lipoma of unspecified site [D17.9] 06/07/2010 12/08/2010 Anemia, unspecified [D64.9] 10/11/2010 More... Adj react-emotion NEC [F43.29] 12/01/2010 Depression [F32.9] 12/01/2010 More... 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 Anxiety [F41.9] 11/19/2013 PTSD (post-traumatic stress disorder) [F43.10] 11/19/2013 Insomnia [G47.00] 11/19/2013 Hearing loss [H91.90] 12/17/2013 Dysphagia [R13.10] 12/17/2013 Cervicalgia [M54.2] 06/04/2014 Achilles tendinitis [M76.60] 06/16/2014 Headache, unspecified headache type [R51] 06/19/2014 Cervical spondylosis without myelopathy [M47.81*07/07/2014 Myofascial pain [M79.18] 07/14/2014 DDD (degenerative disc disease), cervical [M50.*07/14/2014 Cervical stenosis of spinal canal [M48.02] 07/14/2014 Trigger little finger of right hand [M65.351] 08/11/2014 Trigger middle finger of left hand [M65.332] 08/11/2014 HTN (hypertension) [I10] 12/28/2014 More... Short-term memory loss [R41.3] 12/28/2014 More... GERD (gastroesophageal reflux disease) [K21.9] 12/28/2014 More... Cognitive decline [R41.89] 01/27/2015 NO SHOW 02/12/2015 06/12/2016 Trigger ring finger of left hand [M65.342] 03/16/2015 Pulmonary embolism (HCC) [I26.99] 08/24/2015 More... 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 JEFFERSON treated with BiPAP [G47.33] 12/17/2018 More... Chronic neck and back pain [M54.2, M54.9, G89.2*12/17/2018 More... Hepatic encephalopathy (HCC) [K72.90] 12/17/2018 More... Chest pain in adult [R07.9] 01/30/2019 More... Hand edema [R60.0] 01/30/2019 More... Positive D dimer [R79.89] 01/30/2019 More... Elevated serum creatinine [R79.89] 01/30/2019 More... S/P coronary artery stent placement, RCA, CX [Z*06/27/2019 Encounter Status:Closed by JACKIE SILVA MA on 12/01/19 Normal [facility] Vital Signs Date Time Vital Sign Value Performing Clinician Facility 05-29-2024 21:50-0500 Body temperature 98.5 [degF] Dr. Afua Velez DO Work Phone: [facility] 05-29-2024 21:50-0500 Diastolic blood pressure 89 mm[Hg] Dr. Afua Velez DO Work Phone: [facility] 05-29-2024 21:50-0500 Heart rate 68 /min Dr. Afua Velez DO Work Phone: [facility] 05-29-2024 21:50-0500 Respiratory rate 15 /min Dr. Afua Velez DO Work Phone: [facility] 05-29-2024 21:50-0500 SaO2% (BldA) [Mass fraction] 97 % Dr. Afua Velez DO Work Phone: [facility] 05-29-2024 21:50-0500 Systolic blood pressure 164 mm[Hg] Dr. Afua Velez DO Work Phone: [facility] 05-29-2024 16:51-0500 Body height 167.[address] Afua Velez DO Work Phone: [facility] 05-29-2024 16:51-0500 Body mass index (BMI) [Ratio] 31.3 kg/m2 Dr. Afua Velez DO Work Phone: [facility] 05-29-2024 16:51-0500 Body weight 87.[address] Afua Velez DO Work Phone: [facility] 02-04-2024 10:00-0400 Diastolic blood pressure 87 mm[Hg] Stanley Sandoval MD Work Phone: [facility] 02-04-2024 10:00-0400 Heart rate 78 /min Stanley Sandoval MD Work Phone: [facility] 02-04-2024 10:00-0400 Respiratory rate 15 /min Stanley Sandoval MD Work Phone: [facility] 02-04-2024 10:00-0400 SaO2% (BldA) [Mass fraction] 98 % Stanley Sandoval MD Work Phone: [facility] 02-04-2024 10:00-0400 Systolic blood pressure 175 mm[Hg] Stanley Sandoval MD Work Phone: [facility] 02-04-2024 09:29-0400 Body temperature 97 [degF] Stanley Sandoval MD Work Phone: [facility] 02-04-2024 07:13-0400 Body height 167.6 cm Stanley Sandoval MD Work Phone: [facility] 02-04-2024 07:13-0400 Body mass index (BMI) [Ratio] 28.89 kg/m2 Stanley Sandoval MD Work Phone: [facility] 02-04-2024 07:13-0400 Body weight 81.19 kg Stanley Sandoval MD Work Phone: [facility] 08-29-2023 17:40-0400 Blood Pressure Location CASE DOWNING MD [facility] 08-29-2023 17:40-0400 Blood Pressure Method CASE DOWNING MD [facility] 08-29-2023 17:40-0400 Diastolic Blood Pressure Non-Invasive 85 mm[Hg] CASE DOWNING MD [facility] 08-29-2023 17:40-0400 Heart rate 67 /min CASE DOWNING MD [facility] 08-29-2023 17:40-0400 Respiratory rate 16 /min CASE DOWNING MD [facility] 08-29-2023 17:40-0400 Systolic Blood Pressure Non-Invasive 133 mm[Hg] CASE DOWNING MD [facility] 08-29-2023 16:26-0400 Blood Pressure Location CASE DOWNING MD [facility] 08-29-2023 16:26-0400 Blood Pressure Method CASE DOWNING MD [facility] 08-29-2023 16:26-0400 Diastolic Blood Pressure Non-Invasive 80 mm[Hg] CASE DOWNING MD [facility] 08-29-2023 16:26-0400 Heart rate 64 /min CASE DOWNING MD [facility] 08-29-2023 16:26-0400 Respiratory rate 16 /min CASE DOWNING MD [facility] 08-29-2023 16:26-0400 Systolic Blood Pressure Non-Invasive 139 mm[Hg] CASE DOWNING MD [facility] 08-29-2023 14:20-0400 Blood Pressure Location CASE DOWNING MD [facility] 08-29-2023 14:20-0400 Blood Pressure Method CASE DOWNING MD [facility] 08-29-2023 14:20-0400 Body temperature 98.24 [degF] CASE DOWNING MD [facility] 08-29-2023 14:20-0400 Body weight 85.7 kg CASE DOWNING MD [facility] 08-29-2023 14:20-0400 Diastolic Blood Pressure Non-Invasive 76 mm[Hg] CASE DOWNING MD [facility] 08-29-2023 14:20-0400 Heart rate 80 /min CASE DOWNING MD [facility] 08-29-2023 14:20-0400 Respiratory rate 16 /min CASE DOWNING MD [facility] 08-29-2023 14:20-0400 Systolic Blood Pressure Non-Invasive 138 mm[Hg] CASE DOWNING MD [facility] 08-24-2023 11:32-0400 Body temperature 97.4 [degF] Dr. Afua Velez Work Phone: [facility] 08-24-2023 11:32-0400 Diastolic blood pressure 78 mm[Hg] Dr. Afua Velez Work Phone: [facility] 08-24-2023 11:32-0400 Heart rate 60 /min Dr. Afua Velez Work Phone: [facility] 08-24-2023 11:32-0400 Respiratory rate 16 /min Dr. Afua Velez Work Phone: [facility] 08-24-2023 11:32-0400 SaO2% (BldA) [Mass fraction] 100 % Dr. Afua Velez Work Phone: [facility] 08-24-2023 11:32-0400 Systolic blood pressure 128 mm[Hg] Dr. Afau Velez Work Phone: [facility] 08-23-2023 13:10-0400 Body height 167.[address] Afua Velez Work Phone: [facility] 08-23-2023 13:10-0400 Body mass index (BMI) [Ratio] 30.4 kg/m2 Dr. Afua Velez Work Phone: [facility] 08-23-2023 13:10-0400 Body weight 85.[address] Afua Velez Work Phone: [facility] 08-21-2023 10:59-0400 Diastolic blood pressure 71 mm[Hg] Dr. Afua Velez Work Phone: [facility] 08-21-2023 10:59-0400 Heart rate 49 /min Dr. Afua Velez Work Phone: [facility] 08-21-2023 10:59-0400 Systolic blood pressure 121 mm[Hg] Dr. Afua Velez Work Phone: [facility] 08-21-2023 10:05-0400 Body mass index (BMI) [Ratio] 30.8 kg/m2 Dr. Afua Velez Work Phone: [facility] 08-21-2023 10:05-0400 Body weight 86.[address] Afua Velez Work Phone: [facility] 08-21-2023 10:05-0400 Respiratory rate 18 /min Dr. Afua Velez Work Phone: [facility] 08-08-2023 11:00-0400 Diastolic blood pressure 82 mm[Hg] Dr. Afua Velez Work Phone: [facility] 08-08-2023 11:00-0400 Heart rate 77 /min Dr. Afua Velez Work Phone: [facility] 08-08-2023 11:00-0400 Respiratory rate 19 /min Dr. Afua Velez Work Phone: [facility] 08-08-2023 11:00-0400 SaO2% (BldA) [Mass fraction] 97 % Dr. Afua Velez Work Phone: [facility] 08-08-2023 11:00-0400 Systolic blood pressure 102 mm[Hg] Dr. Afua Velez Work Phone: [facility] 08-08-2023 08:00-0400 Body temperature 97.9 [degF] Dr. Afua Velez Work Phone: [facility] 08-08-2023 06:00-0400 Body mass index (BMI) [Ratio] 34 kg/m2 Dr. Afua Velez Work Phone: [facility] 08-08-2023 06:00-0400 Body weight 95.[address] Afua Velez Work Phone: [facility] 08-07-2023 10:00-0400 Inhaled oxygen flow rate 2 L/min Dr. Afua Velez Work Phone: [facility] 08-03-2023 20:24-0500 Body height 167.[address] Afua Velez Work Phone: [facility] 08-03-2023 19:12-0500 Diastolic blood pressure 79 mm[Hg] Dr. Afua Velez Work Phone: [facility] 08-03-2023 19:12-0500 Heart rate 69 /min Dr. Afua Velez Work Phone: [facility] 08-03-2023 19:12-0500 Respiratory rate 18 /min Dr. Afua Velez Work Phone: [facility] 08-03-2023 19:12-0500 SaO2% (BldA) [Mass fraction] 97 % Dr. Afua Velez Work Phone: [facility] 08-03-2023 19:12-0500 Systolic blood pressure 124 mm[Hg] Dr. Afua Velez Work Phone: [facility] 08-03-2023 18:33-0500 Body temperature 98 [degF] Dr. Afua Velez Work Phone: [facility] 08-03-2023 15:10-0500 Inhaled oxygen flow rate 2 L/min Dr. Afua Velez Work Phone: [facility] 08-03-2023 14:46-0500 Body height 167.[address] Afua Velez Work Phone: [facility] 08-03-2023 14:46-0500 Body mass index (BMI) [Ratio] 32.1 kg/m2 Dr. Afua Velez Work Phone: [facility] 08-03-2023 14:46-0500 Body weight 90.[address] Afua Velez Work Phone: [facility] 07-13-2023 15:25-0500 Body height 167.6 cm Stanley Sandoval MD Work Phone: [facility] 07-13-2023 15:25-0500 Body temperature 97.81 [degF] Stanley Sandoval MD Work Phone: [facility] 07-13-2023 15:25-0500 Body weight 86.91 kg Stanley Sandoval MD Work Phone: [facility] 07-13-2023 15:25-0500 Diastolic blood pressure 74 mm[Hg] Stanley Sandoval MD Work Phone: [facility] 07-13-2023 15:25-0500 Heart rate 68 /min Stanley Sandoval MD Work Phone: [facility] 07-13-2023 15:25-0500 SaO2% (BldA) [Mass fraction] 96 % Stanley Sandoval MD Work Phone: [facility] 07-13-2023 15:25-0500 Systolic blood pressure 128 mm[Hg] Stanley Sandoval MD Work Phone: [facility] 06-14-2023 10:41-0500 Body height 167.[address] Afua Velez Work Phone: [facility] 06-14-2023 10:38-0500 Body mass index (BMI) [Ratio] 31.1 kg/m2 Dr. Afua Velez Work Phone: [facility] 06-14-2023 10:38-0500 Body temperature 98.2 [degF] Dr. Afua Velez Work Phone: [facility] 06-14-2023 10:38-0500 Body weight 87.[address] Afua Velez Work Phone: [facility] 06-14-2023 10:38-0500 Diastolic blood pressure 86 mm[Hg] Dr. Afua Velez Work Phone: [facility] 06-14-2023 10:38-0500 Heart rate 62 /min Dr. Afua Velez Work Phone: [facility] 06-14-2023 10:38-0500 Respiratory rate 16 /min Dr. Afua Velez Work Phone: [facility] 06-14-2023 10:38-0500 SaO2% (BldA) [Mass fraction] 97 % Dr. Afua Velez Work Phone: [facility] 06-14-2023 10:38-0500 Systolic blood pressure 138 mm[Hg] Dr. Afua Velez Work Phone: [facility] 03-22-2023 14:22-0400 Body height 167.[address] Afua Velez Work Phone: [facility] 03-22-2023 14:22-0400 Body mass index (BMI) [Ratio] 30.8 kg/m2 Dr. Afua Velez Work Phone: [facility] 03-22-2023 14:22-0400 Body weight 86.[address] Afua Velez Work Phone: [facility] 03-22-2023 14:22-0400 Diastolic blood pressure 83 mm[Hg] Dr. Afua Velez Work Phone: [facility] 03-22-2023 14:22-0400 Heart rate 63 /min Dr. Afua Velez Work Phone: [facility] 03-22-2023 14:22-0400 Respiratory rate 18 /min Dr. Afua Velez Work Phone: [facility] 03-22-2023 14:22-0400 SaO2% (BldA) [Mass fraction] 95 % Dr. Afua Velez Work Phone: [facility] 03-22-2023 14:22-0400 Systolic blood pressure 131 mm[Hg] Dr. Afua Velez Work Phone: [facility] 01-12-2023 11:42-0400 Body weight 87.[address] Afua Velez Work Phone: [facility] 01-12-2023 11:02-0400 Body mass index (BMI) [Ratio] 31.1 kg/m2 Dr. Afua Velez Work Phone: [facility] 01-12-2023 10:47-0400 Body temperature 97.3 [degF] Dr. Afua Velez Work Phone: [facility] 01-12-2023 10:47-0400 Diastolic blood pressure 83 mm[Hg] Dr. Afua Velez Work Phone: [facility] 01-12-2023 10:47-0400 Heart rate 77 /min Dr. Afua Velez Work Phone: [facility] 01-12-2023 10:47-0400 Respiratory rate 18 /min Dr. Afua Velez Work Phone: [facility] 01-12-2023 10:47-0400 SaO2% (BldA) [Mass fraction] 97 % Dr. Afua Velez Work Phone: [facility] 01-12-2023 10:47-0400 Systolic blood pressure 156 mm[Hg] Dr. Afua Velez Work Phone: [facility] 01-11-2023 15:44-0400 Body height 167.[address] Afua Velez Work Phone: [facility] 01-11-2023 15:44-0400 Body weight 87.[address] Afua Velez Work Phone: [facility] 01-11-2023 14:55-0400 Body temperature 98 [degF] Dr. Afua Velez Work Phone: [facility] 01-11-2023 14:55-0400 Diastolic blood pressure 80 mm[Hg] Dr. Afua Velez Work Phone: [facility] 01-11-2023 14:55-0400 Heart rate 82 /min Dr. Afua Velez Work Phone: [facility] 01-11-2023 14:55-0400 Respiratory rate 17 /min Dr. Afua Velez Work Phone: [facility] 01-11-2023 14:55-0400 SaO2% (BldA) [Mass fraction] 97 % Dr. Afua Velez Work Phone: [facility] 01-11-2023 14:55-0400 Systolic blood pressure 162 mm[Hg] Dr. Afua Velez Work Phone: [facility] 01-11-2023 09:37-0400 Body height 167.[address] Afua Velez Work Phone: [facility] 01-11-2023 09:37-0400 Body mass index (BMI) [Ratio] 31.4 kg/m2 Dr. Afua Velez Work Phone: [facility] 01-11-2023 09:37-0400 Body weight 88.[address] Afua Velez Work Phone: [facility] 08-29-2022 16:00-0400 Body temperature 97.7 [degF] Dr. Afua Velez Work Phone: [facility] 08-29-2022 16:00-0400 Diastolic blood pressure 75 mm[Hg] Dr. Afua Velez Work Phone: [facility] 08-29-2022 16:00-0400 Heart rate 73 /min Dr. Afua Velez Work Phone: [facility] 08-29-2022 16:00-0400 Respiratory rate 16 /min Dr. Afua Velez Work Phone: [facility] 08-29-2022 16:00-0400 SaO2% (BldA) [Mass fraction] 99 % Dr. Afua Velez Work Phone: [facility] 08-29-2022 16:00-0400 Systolic blood pressure 126 mm[Hg] Dr. Afua Velez Work Phone: [facility] 08-29-2022 04:39-0400 Body mass index (BMI) [Ratio] 31.1 kg/m2 Dr. Afua Velez Work Phone: [facility] 08-29-2022 04:39-0400 Body weight 87.[address] Afua Velez Work Phone: [facility] 08-28-2022 15:45-0400 Body height 167.[address] Afua Velez Work Phone: [facility] 08-28-2022 15:05-0400 Body temperature 97.8 [degF] [facility] 08-28-2022 15:05-0400 Diastolic blood pressure 84 mm[Hg] [facility] 08-28-2022 15:05-0400 Heart rate 67 /min [facility] 08-28-2022 15:05-0400 Respiratory rate 18 /min [facility] 08-28-2022 15:05-0400 SaO2% (BldA) [Mass fraction] 99 % [facility] 08-28-2022 15:05-0400 Systolic blood pressure 139 mm[Hg] [facility] 08-28-2022 14:43-0400 Inhaled oxygen flow rate 2 L/min [facility] 08-28-2022 13:15-0400 Body height 167.64 cm [facility] 08-28-2022 13:15-0400 Body mass index (BMI) [Ratio] 31.2 kg/m2 [facility] 08-28-2022 13:15-0400 Body weight 87.9 kg [facility] 04-19-2021 12:22-0500 Diastolic blood pressure 84 mm[Hg] VIJAY HUYNH DO [facility] 04-19-2021 12:22-0500 Heart rate 64 /min VIJAY HUYNH DO [facility] 04-19-2021 12:22-0500 Mean blood pressure 102 mm[Hg] VIJAY HUYNH DO [facility] 04-19-2021 12:22-0500 Respiratory rate 16 /min VIJAY HUYNH DO [facility] 04-19-2021 12:22-0500 Systolic blood pressure 137 mm[Hg] VIJAY HUYNH DO [facility] 04-19-2021 11:06-0500 Body temperature 97.7 [degF] VIJAY HUYNH DO [facility] 04-19-2021 11:06-0500 Diastolic blood pressure 74 mm[Hg] VIJAY HUYNH DO [facility] 04-19-2021 11:06-0500 Heart rate 80 /min VIJAY HUYNH DO [facility] 04-19-2021 11:06-0500 Mean blood pressure 86 mm[Hg] VIJAY HUYNH DO [facility] 04-19-2021 11:06-0500 Respiratory rate 16 /min VIJAY HUYNH DO [facility] 04-19-2021 11:06-0500 Systolic blood pressure 111 mm[Hg] VIJAY HUYNH DO [facility] 04-02-2021 10:25-0400 Body temperature 98.06 [degF] DR JENNIFER ARNETT MD [facility] 04-02-2021 10:25-0400 Diastolic blood pressure 73 mm[Hg] DR JENNIFER ARNETT MD [facility] 04-02-2021 10:25-0400 Heart rate 88 /min DR JENNIFER ARNETT MD [facility] 04-02-2021 10:25-0400 Respiratory rate 16 /min DR JENNIFER ARNETT MD [facility] 04-02-2021 10:25-0400 Systolic blood pressure 109 mm[Hg] DR JENNIFER ARNETT MD [facility] Encounters Encounter Date Encounter Type Care Provider Facility Start: 03-30-2025 ambulatory AFUA VELEZ Facilit y:[facility] Start: 01-06-2025 End: 01-06-[address] Afua Velez DO Work Phone: -Laboratory Domonique Allred [facility] Start: 01-06-2025 End: 01-06-[address] Afua LAWLaboratory Domonique Allred [facility] Start: 01-06-2025 End: 01-06-2025 ambulatory Afua Velez Facility:[facility] Start: 10-21-2024 ambulatory AFUA VELEZ Facilit y:[facility] Start: 10-21-2024 End: 10-21-2024 Subsequent hospital visit by physician [facility] Work Phone: Radiology Start: 08-05-2024 End: 08-05-[address] JENNIFER BERNSTEIN MD Facility:[facility] Start: 07-25-2024 End: 07-25-[address] Afua Velez DO Work Phone: [facility] Work Phone: Start: 07-25-2024 End: 07-25-[address] Afua Velez DO -Laboratory Work Phone: Start: 07-25-2024 End: 07-25-2024 ambulatory Afua Velez Facility:[facility] Start: 07-23-2024 End: 07-23-2024 ambulatory AFUA VELEZ Facility:[facility] Start: 07-01-2024 End: 07-01-2024 ambulatory CARLOTTA CREWS Facility:[facility] Start: 07-01-2024 End: 07-01-2024 Patient encounter procedure Carlotta Crews OD Work Phone: Ophthalmology Comment on above: Combined forms of ag e-related cataract of both eyes (Primary Dx); Posterior vitreous detachment of right eye; Squamous blepharitis of upper and lower eyelids of both eyes; Retinal hemorrhage, left eye Start: 05-29-2024 End: 05-29-2024 Emergency department patient visit Dr. Tereso Cutler DO -Emergency Department Work Phone: Start: 02-04-2024 ambulatory AFUA VELEZ [facility] Start: 02-04-2024 End: 02-04-2024 Subsequent hospital visit by physician Stanley Sandoval MD Work Phone: [facility] Endoscopy Comment on above: Constipation, unspec ified constipation type [K59.00] Start: 12-04-2023 End: 12-04-[address] JENNIFER BERNSTEIN MD [facility] Start: 09-18-[address] AFUA WOODY DO Facility:B Start: 09-11-2023 End: 09-12-[address] AFUA VELEZ DO Facility:[facility] Start: 09-11-2023 End: 09-11-[address] JENNIFER BERNSTEIN MD [facility] Start: 08-31-2023 End: 09-01-[address] AFUA VELEZ DO Facility:[facility] Start: 08-29-2023 End: 08-29-2023 Emergency department patient visit DR AFUA VELEZ DO Facility:[facility] Start: 08-29-2023 End: 08-29-2023 Emergency department patient visit CASE DOWNING MD [facility] Start: 08-27-2023 Non-patient / Non-visit Dr. Helga Velez Work Phone: [facility] Work Phone: Start: 08-24-2023 Non-patient / Non-visit Dr. Helga Velez Work Phone: [facility] Work Phone: Start: 08-24-2023 Non-patient / Non-visit Dr. Helga Velez Work Phone: [facility] Work Phone: Start: 08-24-2023 End: 08-24-[address] Afua Velez Work Phone: [facility] Work Phone: Start: 08-24-2023 End: 08-24-[address] Afua Velez Work Phone: [facility]-Pulmonary Services/Neurology Work Phone: Start: 08-23-2023 Non-patient / Non-visit Dr. Helga Velze Work Phone: [facility] Work Phone: Start: 08-23-2023 Non-patient / Non-visit Dr. Helga Velez Work Phone: [facility] Start: 08-23-2023 End: 08-24-2023 Evaluation and management of inpatient Dr. Afua Velez Work Phone: [facility]Int[facility] Work Phone: Start: 08-21-2023 End: 08-21-[address] Afua Velez Work Phone: [facility] Work Phone: Start: 08-08-2023 Non-patient / Non-visit Dr. Helga Velez Work Phone: [facility] Work Phone: Start: 08-08-2023 Non-patient / Non-visit Dr. Helga Velez Work Phone: [facility] Start: 08-07-2023 Non-patient / Non-visit Dr. Helga Velez Work Phone: [facility] Work Phone: Start: 08-07-2023 Non-patient / Non-visit Dr. Helga Velez Work Phone: [facility] Start: 08-06-2023 Non-patient / Non-visit Dr. Helga Velez Work Phone: [facility] Work Phone: Start: 08-06-2023 Non-patient / Non-visit Dr. Helga Velez Work Phone: [facility] Start: 08-05-2023 Non-patient / Non-visit Dr. Helga Velez Work Phone: [facility] Work Phone: Start: 08-04-2023 Non-patient / Non-visit Dr. Helga Velez Work Phone: [facility] Start: 08-04-2023 Non-patient / Non-visit Dr. Helga Velez Work Phone: [facility] Work Phone: Start: 08-03-2023 End: 08-08-2023 Evaluation and management of inpatient Dr. Afua Velez Work Phone: [facility]Pro[facility] Work Phone: Start: 07-27-2023 Non-patient / Non-visit Dr. Helga Velez Work Phone: [facility] Work Phone: Start: 07-26-2023 Non-patient / Non-visit Dr. Helga Velez Work Phone: [facility] Start: 07-24-2023 End: 07-24-[address] Afua Velez Work Phone: [facility] Work Phone: Start: 07-24-2023 End: 07-24-[address] Af[facility] Work Phone: Start: 07-19-2023 End: 01-24-2024 Telephone encounter Stanley Sandoval MD Work Phone: General Surgery Comment on above: 09/03/2023 COLON/EGD D IAG PAZ ; WAITLIST; Cardiac Clearance Start: 07-13-2023 End: 07-13-2023 Subsequent hospital visit by physician Xr [facility] Work Phone: Radiology Comment on above: Constipation, unspec ified constipation type [K59.00] Start: 07-13-2023 End: 07-13-2023 Patient encounter procedure Stanley Sandoval MD Work Phone: General Surgery Comment on above: Constipation, unspec ified constipation type (Primary Dx) Start: 06-14-2023 End: 06-14-[address] Afua Velez Work Phone: [facility] Work Phone: Start: 04-12-2023 Telephone encounter Van bardales MD Work Phone: Orthopaedics Comment on above: Medication Problem Start: 04-05-2023 Telephone encounter Van bardales MD Work Phone: Orthopaedics Comment on above: Schedule Surgery Start: 04-05-2023 End: 04-05-[address] Afua Velez Work Phone: [facility] Work Phone: Start: 04-05-2023 End: 04-05-[address] Afua Velez Work Phone: [facility]-Pulmonary Services/Neurology Work Phone: Start: 03-22-2023 End: 03-22-[address] Afua Velez Work Phone: [facility] Work Phone: Start: 03-20-2023 End: 03-20-2023 Patient encounter procedure Carlotta Crews OD Work Phone: Ophthalmology Comment on above: Iritis, traumatic (P rimary Dx); Retinal hemorrhage, right eye; Punctate keratitis, bilateral; Posterior vitreous detachment of right eye Start: 03-06-2023 End: 03-06-2023 Patient encounter procedure Carlotta Crews OD Work Phone: Ophthalmology Comment on above: Iritis, traumatic (P rimary Dx); Retinal hemorrhage, right eye; Punctate keratitis, bilateral Start: 01-12-2023 Non-patient / Non-visit Dr. Helga Velez Work Phone: [facility] Work Phone: Start: 01-12-2023 Non-patient / Non-visit Dr. Helga Velez Work Phone: [facility] Start: 01-11-2023 Non-patient / Non-visit Dr. Helga Velez Work Phone: [facility] Work Phone: Start: 01-11-2023 End: 01-12-2023 Evaluation and management of inpatient Dr. Afua Velez Work Phone: [facility] Work Phone: Start: 01-11-2023 End: 01-11-2023 Emergency department patient visit Dr. Afua Velez Work Phone: [facility]-Emergency Department Work Phone: Start: 08-29-2022 Non-patient / Non-visit Dr. Helga Velez Work Phone: [facility] Start: 08-29-2022 Non-patient / Non-visit Dr. Helga Velez Work Phone: [facility] Start: 08-28-2022 End: 08-29-2022 [facility] management of [facility] Start: 08-28-2022 End: 08-29-[address] Afua Velez Work Phone: [facility] Work Phone: Start: 01-25-2022 End: 01-25-2022 Subsequent hospital visit by physician Xr [facility] Work Phone: Radiology Start: 09-29-2021 End: 09-29-2021 Patient encounter [facility] Start: 08-09-2021 End: 08-09-[address] Afua Velez Work Phone: [facility] Start: 05-05-[address] Afua Velez Work Phone: [facility]-Pulmonary Services/Neurology Start: 05-05-2021 Non-patient / Non-visit Dr. Helga Velez Work Phone: [facility] Start: 04-26-[address] Afua Velez Work Phone: [facility] Start: 04-19-2021 End: 04-19-2021 Emergency department patient visit VIJAY HUYNH DO [facility] Start: 04-02-2021 End: 04-02-2021 Emergency department patient visit DR JENNIFER ARNETT MD [facility] Procedures Date Procedure Procedure Detail Performing Clinician Start: 01-06-2025 Prostate specific antigen measurement Dr. Afua Velez DO Work Phone: Comment on above: This test was performed using the [employer] tPSA method. Measured values of a patient sample can vary depending on the testing procedure used. PSA values determined on patient samples by different testing procedures cannot be used interchangeably. If there is a change in PSA assays while monitoring therapy, sequential testing should be performed to confirm baseline values. Start: 05-29-2024 X-ray of chest, PA and lateral views Dr. Afua Velez DO Work Phone: Start: 05-29-2024 CT angiography of head and neck Dr. Afua Velez DO Work Phone: Start: 02-04-2024 Colonoscopy flx dx w/collj spec when pfrmd Stanley Sandoval MD Work Phone: Start: 02-04-2024 Esophagogastroduodenoscopy transoral diagnostic Stanley Sandoval MD Work Phone: Start: 02-04-2024 Colonoscopy Stanley Sandoval MD Work Phone: Start: 09-29-2023 Electrocardiographic monitor and recorder, device (physical object) DR JENNIFER BERNSTEIN MD Comment on above: 21 DAY 09/09/23 - 09/29/23 Frequent PVCs with different morphology; symptomatic PVCs 5 episodes of wide-complex rhythm most likely nonsustained [place]. Some of them had different morphology PVCs Good number of PACs Start: 09-29-[address] JENNIFER FRANCO MD Comment on above: Impression: Frequent PVCs with different morphology; symptomatic PVCs 5 episodes of wide-complex rhythm most likely nonsustained [place]. Some of them had different morphology PVCs Good number of PACs Start: 09-11-[address] JENNIFER BERNSTEIN MD Comment on above: 1. Left ventricle: The cavity size is no rmal. Wall thickness is normal. Systolic function is mildly reduced. The estimated ejection fraction is 45-50%. Hypokinesis of the inferolateral myocardium. Hypokinesis of the lateral myocardium. Grade I diastolic dysfunction. 2. Aortic valve: There is trivial regurgitation. 3. Mitral valve: There is mild regurgitation. 4. Right ventricle: The RV systolic pressure by Doppler is 27 mm Hg. 5. Right atrium: The estimated right atrial pressure is 3 mm Hg. Start: 08-23-2023 Plain chest X-ray Dr. Afua Velez Work Phone: Start: 08-06-2023 History of placement of stent for coronary artery disease History of coronary artery stent placement Dr. Afua Velez Work Phone: Comment on above: PCI-JOSE ANGEL-ISR Prox LCX w/ 3.0 x 14 mm Reso lute Stent 04/13/18PCI-Mid RCA-3.0 x 38 JED FRONTIER JOSE ANGEL and 3.5 x 38 JED FRONTIER JOSE ANGEL 08/06/2023 Start: 08-06-[address] JENNIFER HUGHES MD Start: 08-06-[address] JENNIFER BERNSTEIN MD Start: 08-03-2023 Plain chest X-ray Dr. Afua Velez Work Phone: Start: 07-24-2023 Cardiovascular stress test using pharmacologic stress agent Dr. Afua Velez Work Phone: Start: 01-11-2023 MRI of brain without contrast Dr. Afua mcallister Work Phone: Start: 01-11-2023 Plain chest X-ray Dr. Afua Velez Work Phone: Start: 01-11-2023 CT angiography of head and neck Dr. Afua Velez Work Phone: Start: 01-11-2023 CT of head without contrast Dr. Afua munoz Work Phone: Start: 08-29-2022 Cardiovascular stress test using pharmacologic stress agent Dr. Afua Velez Work Phone: Start: 08-28-2022 Plain chest X-ray Start: 08-28-2022 Plain X-ray of shoulder Start: 03-28-2022 Lipid 1996 panel - Serum or Plasma Johanna Crews OD Work Phone: Start: 01-25-2022 Radex spine cervical 2 or 3 views [facility] Start: 09-29-2021 CT angiography of chest with contrast Start: 08-09-2021 CT of abdomen with contrast Dr. Afua munoz Work Phone: Start: 07-11-2021 Colonoscopy [facility] Work Phone: Start: 05-28-[address] JENNIFER BERNSTEIN MD Start: 06-27-2019 History of placement of stent for coronary artery disease S/P coronary artery stent placement, RCA, CX [facility] Work Phone: Start: 04-13-2018 History of placement of stent for coronary artery disease History of coronary artery stent placement Dr. Afua Velez Work Phone: Start: 05-28-[address] JENNIFER BERNSTEIN MD Start: 05-28-[address] JENNIFER BERNSTEIN MD Cholecystectomy DR JENNIFER GARCIA MD Finger structure (body structure) DR JENNIFER ARNETT MD Kidney stone (disorder) DR Yuri ARNETT MD Knee region structur e (body structure) DR JENNIFER ARNETT MD Stent, device (physical object) DR JENNIFER ARNETT MD Testis structure (body structure) DR JENNIFER ARNETT MD Plan of Treatment Date Care Activity Detail Author Start: 02-03-2029 Screening for malignant neoplasm of colon [facility] Start: 03-28-2027 Lipid 1996 panel - Serum or Plasma Lipid Screening [facility] Start: 03-28-2027 Lipid panel Lipid Screening [facility] Start: 07-11-2026 Colonoscopy COLONOSCOPY [facility] Start: 07-11-2026 COLORECTAL CANCER SCREENING COLORECTAL CANCER SCREENING [facility] Start: 07-11-2026 Screening for malignant neoplasm of colon [facility] Start: 09-28-2025 LIPID SCREEN LIPID SCREEN [facility] Start: 2025 RSV Vaccine (1 - 1-dose 75+ series) RSV Vaccine (1 - 1-dose 75+ series) [facility] Start: 01-26-2025 Influenza vaccination Influenza Vaccine (Season Ended) [facility] Start: 09-30-2024 End: 09-30-2024 Patient encounter procedure 09/30/2024 9:00 AM EDT Office Visit [facility] [address] [place] [address] Carlotta Crews, OD [address] [facility] [place] [address] 3 month-dilated exam- recheck cesar henriquez Ophthalmology Comment on above: 3 month-dilated exam- recheck cesar good e Start: 07-13-2024 BP Controlled (<130/80) BP Controlled (<130/80) [facility] Start: 05-29-2024 [facility] Start: 05-28-2024 Advance Directive Discussion Advance Directive Discussion [facility] Start: 03-10-2024 Urine microalbumin profile [facility] Start: 02-04-2024 End: 02-04-2024 Patient encounter procedure 02/04/2024 8:15 AM EDT Appointment [facility] [address] [place] [address] Stanley Sandoval MD [address] [address] Constipation, unspecified constipation type [K59.00] [facility] Comment on above: Constipation, unspecified constipation t ype [K59.00] Start: 01-27-2024 Covid-19 Vaccine ( season) Covid-19 Vaccine ( season) [facility] Start: 01-27-2024 Covid-19 Vaccine ( season) Covid-19 Vaccine () [facility] Start: 01-27-2024 Influenza vaccination Influenza Vaccine (#1) [facility] Start: 12-24-2023 DIABETES SCREEN DIABETES SCREEN [facility] Start: 12-24-2023 Diabetes Screening Diabetes Screening [facility] Start: 08-27-2023 Referral to service [facility] Start: 08-24-2023 24 Hour ECG [facility] Start: 08-24-2023 Patient discharge [facility] Start: 08-23-2023 Following clinical pathway protocol [facility] Start: 08-23-2023 Ambulation without limitation [facility] Start: 08-23-2023 Assessment of risk of venous thromboembolism [facility] Start: 08-23-2023 Insertion of catheter into peripheral vein [facility] Start: 08-23-[address]23 [address]uring intake and output [facility] Start: 08-23-2023 Providing care according to standard [facility] Start: 08-23-2023 Referral to heavy coil winder [facility] Start: 08-23-2023 [facility] Start: 08-23-2023 Admission procedure [facility] Start: 08-10-2023 Patient referral [facility] Work Phone: Start: 08-08-2023 Patient discharge [facility] Start: 08-07-2023 Referral to service [facility] Start: 08-06-2023 Neurovascular assessment [facility] Start: 08-06-2023 [facility] Start: 08-06-2023 Cardiac monitoring [facility] Start: 08-06-2023 Cardiac rehabilitation - phase 1 [facility] Start: 08-06-2023 Cardiac rehabilitation - phase 2 [facility] Start: 08-06-2023 End: 08-06-2023 Notification of physician [facility] Start: 08-06-2023 Oxygen therapy [facility] Start: 08-06-2023 Patient discharge [facility] Start: 08-06-2023 Patient education [facility] Start: 08-06-2023 Provision of activity privileges [facility] Start: 08-06-2023 Pulse taking [facility] Start: 08-06-2023 Systemic arterial pressure monitoring [facility] Start: 08-06-2023 Taking patient vital signs [facility] Start: 08-06-2023 Vascular disease risk assessment [facility] Start: 08-06-2023 Vital signs measurements [facility] Start: 08-06-2023 Wound care [facility] Start: 08-06-2023 End: 08-06-2023 [facility] Start: 08-06-2023 Care planning and problem solving actions [facility] Start: 08-05-2023 Catheterization of vein [facility] Start: 08-05-[address] [facility] Start: 08-05-2023 Preoperative care [facility] Start: 08-05-2023 End: 08-06-2023 [facility] Start: 08-03-2023 Assessment of risk of venous thromboembolism [facility] Start: 08-03-2023 Insertion of catheter into peripheral vein [facility] Start: 08-03-[address] and output [facility] Start: 08-03-2023 Providing care according to standard [facility] Start: 08-03-2023 Provision of activity privileges [facility] Start: 08-03-2023 Referral to heavy coil winder [facility] Start: 08-03-2023 Referral to occupational therapist [facility] Start: 08-03-2023 Referral to service [facility] Start: 08-03-2023 [facility] Start: 08-03-2023 Following clinical pathway protocol [facility] Start: 08-03-2023 Admission procedure [facility] Start: 08-03-2023 Hospital admission, emergency, from emergency room, medical nature [facility] Start: 08-03-2023 [facility] Start: 06-14-2023 Evaluation of diagnostic study results [facility] Start: 05-28-2023 Advance Directive Discussion Advance Directive Discussion [facility] Start: 03-28-2023 Hepatitis B surface antibody level LDL Cholesterol [facility] Start: 01-26-2023 Covid-19 Vaccine ( season) Covid-19 Vaccine () [facility] Start: 01-26-2023 Influenza vaccination Influenza Vaccine (#1) [facility] Start: 01-12-2023 Patient discharge [facility] Start: 01-11-2023 Following clinical pathway protocol [facility] Start: 01-11-2023 Application of intermittent pneumatic compression device [facility] Start: 01-11-2023 Ambulation without limitation [facility] Start: 01-11-2023 Assessment of risk of venous thromboembolism [facility] Start: 01-11-2023 Cardiac monitoring [facility] Start: 01-11-2023 Catheterization of vein [facility] Start: 01-11-2023 Continuous pulse oximetry [facility] Start: 01-11-2023 Documentation procedure [facility] Start: 01-11-2023 Elevation of head of bed [facility] Start: 01-11-2023 Exercises [facility] Start: 01-11-2023 Implementation of planned interventions [facility] Start: 01-11-2023 Insertion of catheter into peripheral vein [facility] Start: 01-11-[address] output [facility] Start: 01-11-2023 Notification of physician [facility] Start: 01-11-2023 Oxygen therapy [facility] Start: 01-11-2023 Patient referral to dietitian [facility] Start: 01-11-2023 Providing care according to standard [facility] Start: 01-11-2023 Referral to occupational therapist [facility] Start: 01-11-2023 Referral to service [facility] Start: 01-11-2023 Tobacco use cessation education [facility] Start: 01-11-2023 [facility] Start: 01-11-2023 Admission procedure [facility] Start: 01-11-2023 Oxygen therapy [facility] Start: 01-11-2023 [facility] Start: 08-29-2022 Patient discharge [facility] Start: 08-29-2022 Patient referral [facility] Work Phone: Start: 08-29-2022 [facility] Start: 08-28-2022 Dual pressure spontaneous ventilation support [facility] Start: 08-28-2022 Chemotherapy care management [facility] Start: 08-28-2022 Following clinical pathway protocol [facility] Start: 08-28-2022 Application of ice collar, cap or bag [facility] Start: 08-28-2022 Aspiration precautions [facility] Start: 08-28-2022 Assessment of risk of venous thromboembolism [facility] Start: 08-28-2022 Cardiac monitoring [facility] Start: 08-28-2022 Fall prevention [facility] Start: 08-28-2022 Incentive spirometry [facility] Start: 08-28-2022 Inhalation therapy procedure [facility] Start: 08-28-2022 Insertion of catheter into peripheral vein [facility] Start: 08-28-2022 Introduction of urinary catheter [facility] Start: 08-28-[address] intake and output [facility] Start: 08-28-2022 Oxygen therapy [facility] Start: 08-28-2022 Providing care according to standard [facility] Start: 08-28-2022 Provision of activity privileges [facility] Start: 08-28-2022 Referral to heavy coil winder [facility] Start: 08-28-2022 Referral to occupational therapist [facility] Start: 08-28-2022 Referral to service [facility] Start: 08-28-2022 Tobacco use cessation education [facility] Start: 08-28-2022 Verification routine [facility] Start: 08-28-2022 End: 08-28-2022 [facility] Start: 08-28-2022 Electrocardiographic procedure [facility] Start: 08-28-2022 Admission procedure [facility] Start: 08-28-2022 Blood chemistry [facility] Start: 08-28-2022 Partial thromboplastin time, activated [facility] Start: 08-28-2022 Prothrombin time [facility] Start: 05-28-2022 Advance Directive Discussion Advance Directive Discussion [facility] Start: 01-26-2022 Influenza vaccination INFLUENZA (#1) [facility] Start: 11-22-2021 ANNUAL PCP TEAM CHRONIC DISEASE VISIT ANNUAL PCP TEAM CHRONIC DISEASE VISIT [facility] Start: 09-28-2021 Hepatitis B surface antibody level LDL CHOLESTEROL [facility] Start: 09-23-2021 FECAL OCCULT BLOOD FECAL OCCULT BLOOD [facility] Start: 09-23-2021 Screening for malignant neoplasm of colon Fecal Occult Blood [facility] Start: 08-24-2021 BP CONTROLLED (<130/80) BP CONTROLLED (<130/80) [facility] Start: 05-28-2021 ADVANCE DIRECTIVE DISCUSSION ADVANCE DIRECTIVE DISCUSSION [facility] Start: 2015 Pneumococcal Vaccine: 65+ (1 - PCV) Pneumococcal Vaccine: 65+ (1 - PCV) [facility] Start: 2015 Pneumococcal Vaccine: 65+ (1 of 1 - PCV) Pneumococcal Vaccine: 65+ (1 of 1 - PCV) [facility] Start: 2015 PNEUMOCOCCAL: 65+ (1 - PCV) PNEUMOCOCCAL: 65+ (1 - PCV) [facility] Start: 2010 Hepatitis B Vaccine (1 of 3 - Risk 3-dose series) Hepatitis B Vaccine (1 of 3 - Risk 3-dose series) [facility] Start: 2010 RSV Vaccine (1 - 1-dose 60+ series) RSV Vaccine (1 - 1-dose 60+ series) [facility] Start: 2000 Pneumococcal Vaccine: 50+ (1 of 1 - PCV) Pneumococcal Vaccine: 50+ (1 of 1 - PCV) [facility] Start: 2000 SHINGRIX VACCINE (1 of 2) SHINGRIX VACCINE (1 of 2) [facility] Start: 1995 COLOGUARD (FIT-DNA) COLOGUARD (FIT-DNA) [facility] Start: [address] COLONOGRAPHY [facility] Start: 1995 Screening for malignant neoplasm of colon [facility] Start: 1995 SIGMOIDOSCOPY SIGMOIDOSCOPY [facility] Start: 1969 Hepatitis A Vaccine (1 of 2 - Risk 2-dose series) Hepatitis A Vaccine (1 of 2 - Risk 2-dose series) [facility] Start: 01-09-1951 COVID-19 VACCINE (#1) COVID-19 VACCINE (#1) [facility] INR in Blood by Coag ulation assay [facility] Magnesium [Mass/volu me] in Serum or Plasma [facility] Patient Education ED, Migraine (Classical) [facility] Work Phone: Patient referral [facility] Work Phone: SURGICAL PATHOLOGY [facility] Work Phone: Comment on above: Release Upon Ordering for 1 Occurrences starting 02/04/2024, 1 completed XR Abdomen Supine an d Upright XR ABDOMEN 1V SUPINE Radiology Routine Constipation, unspecified constipation type 07/13/2023 4:26 PM EST [facility] Work Phone: End: 08-11-2024 XR Abdomen Supine and Upright XR ABDOMEN 1V SUPINE Radiology Routine Constipation, unspecified constipation type 1 Occurrences starting 07/13/2023 until 08/11/2024 [facility] Work Phone: Comment on above: 1 Occurrences starting 07/13/2023 until 08/11/2024 [facility] Immunizations Immunization Date Immunization Notes Care Provider Josi [facility] 04-10-2018 influenza virus vaccine, unspecified formulation Carlotta Crews OD Work Phone: [facility] 03-10-2014 tetanus toxoid, redu honorio diphtheria toxoid, and acellular pertussis vaccine, adsorbed Xr Mob Work Phone: [facility] Work Phone: Payers Date Payer Category Payer Self-pay [id number] 2021 Medicare (Managed Care) JOJO Weaver [employer] O [id number] 2021 Unknown [id number] 2021 Unknown [id number] 2015 Medicare [id number] 1950 Unknown [id number] 1950 Unknown [id number] 1950 Unknown [id number] 1950 Unknown [id number] 1950 Unknown [id number] Medicaid [id number] Unknown [id number] Unknown [id number] Unknown [id number] Unknown [id number] Social History Date Type Detail Facility Start: 09-17-2020 End: 05-29-2024 Never smoked tobacco (finding) [facility] Sex Assigned At [facility] Start: 11-09-2020 End: 08-23-2023 Tobacco smoking status NHIS Unknown if ever smoked [facility] Start: 11-07-2020 Occasional [facility] Start: 08-10-2020 None [facility] Start: 08-10-2020 Spouse/ Significant Other [facility] Start: 08-10-2020 Non-smoker [facility] Start: 1950 Sex Assigned At Male [facility] Start: 02-07-2013 End: 03-06-2023 Tobacco use and exposure Smokeless tobacco non-user [facility] Start: 07-15-2021 End: 07-01-2024 Alcohol intake Current non-drinker of alcohol (finding) [facility] Start: 07-15-2021 End: 03-06-2023 Alcohol intake [facility] Start: 04-27-2020 End: 08-12-2020 History SDOH Alcohol Frequency [address] 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 Start: 09-25-2019 History SDOH Social Connections Phone [address] [facility] Start: 09-25-2019 End: 08-12-2020 History SDOH Social Connections Get Together [address] [facility] Start: 09-25-2019 History SDOH Physical Activity DPW [address] [facility] Start: 09-25-2019 History SDOH Physical Activity MPS [address] [facility] Start: 09-25-2019 History SDOH Financial [address] [facility] Start: 09-25-2019 Education [address] [facility] Start: 09-25-2019 End: 03-06-2023 Social connection and isolation panel [facility] Do you belong to any clubs or organizations such as mormonism groups, unions, fraternal or athletic groups, or school groups? No [facility] Are you now , , , , never or living with a partner? [facility] How often to you hav e a drink containing alcohol? Never [facility] Average Number of Drinks Not on file [facility] Do you feel stress - tense, restless, nervous, or anxious, or unable to sleep at night because your mind is troubled all the time - these days [OSQ] To some extent [facility] (I/We) worried tomas er (my/our) food would run out before (I/we) got money to buy more. Never true [facility] Start: 01-28-2019 Gender identity Identifies as male gender (finding) [facility] Start: 01-28-2019 Sexual orientation Heterosexual (finding) [facility] Start: 08-08-2024 Sex Male (finding) [facility] Medical Equipment Procedure Code Equipment Code Equipment Origin al Text Equipment Identifier Dates STENT,URETERAL 6 FR PIG 6X26 FDA Start: 01-08-2019 STENT,URETERAL 6 FR PIG 6X26 FDA Start: 01-08-2019 Dexter Bio Swivelock 4.75x24.5 - [id number] Start: 03-23-2011 Comment on above: Description: bio-swi velock STENT,URETERAL 6 FR PIG 6X26 FDA Start: 01-08-2019 STENT,URETERAL 6 FR PIG 6X26 FDA Start: 01-08-2019 STENT,URETERAL 6 FR PIG 6X26 FDA Start: 01-08-2019 STENT,URETERAL 6 FR PIG 6X26 FDA Start: 01-08-2019 STENT,URETERAL 6 FR PIG 6X26 FDA Start: 01-08-2019 [facility] [id number] Start: 03-23-2011 Comment on above: Description: bio-cor kscrew STENT,URETERAL 6 FR PIG 6X26 FDA Start: 01-08-2019 STENT,URETERAL 6 FR PIG 6X26 FDA Start: 01-08-2019 STENT,URETERAL 6 FR PIG 6X26 FDA Start: 01-08-2019 Drug-eluting coronary artery stent, non-bioabsorbable- polymer-coated [id number] FDA Start: 08-06-2023 Drug-eluting coronary artery stent, non-bioabsorbable- polymer-coated [id number] FDA Start: 08-06-2023 STENT,URETERAL 6 FR PIG 6X26 FDA Start: 01-08-2019 STENT,URETERAL 6 FR PIG 6X26 FDA Start: 01-08-2019 STENT,URETERAL 6 FR PIG 6X26 FDA Start: 01-08-2019 STENT,URETERAL 6 FR PIG 6X26 FDA Start: 01-08-2019 Goals Date Patient Goal Desired Activity /State Functional Status Date Assessment Result Facility 08-29-2023 Functional Status Independent [place] Filipe cosme [facility] 08-29-2023 Functional Status ID band on, Allergy Band on, Call device within reach, Bed in low position, Wheels locked, Upper/Half-Length side-rails up, Visitor at bedside, Safety level maintained [facility] 08-24-2023 Functional status Up ad austin [facility] Work Phone: 08-08-2023 Functional status Ambulates [facility] Work Phone: 01-12-2023 Functional status Activity Abili ty Standby Assist [facility] Work Phone: 08-29-2022 Functional status Ambulates;Bath room Privilege [facility] Work Phone: 11-28-2019 Are you deaf, or do you have serious difficulty hearing No 11/28/2019 8:42 AM Nallely Roberts RN No [facility] 11-28-2019 Are you blind, or do you have serious difficulty seeing, even when wearing glasses No 11/28/2019 8:42 AM Nallely Roberts, RICHARD No [facility] 11-28-2019 Do you have serious difficulty walking or climbing stairs No 11/28/2019 8:42 AM Nallely Roberts RN No [facility] 11-28-2019 Do you have difficul ty dressing or bathing No 11/28/2019 8:42 AM Nallely Roberts, RICHARD No [facility] 11-28-2019 Because of a physica l, mental, or emotional condition, do you have difficulty doing errands alone such as visiting a physician's office or shopping No 11/28/2019 8:42 AM Nallely Roberts RN No [facility] Mental Status Date Assessment Result Facility 05-29-2024 Cognitive function Voice/Name [facility] Work Phone: 08-29-2023 Mental Status Orientation Oriented x 4 [facility] 08-29-2023 Mental Status [facility] 08-24-2023 Cognitive function Voice/Name [facility] Work Phone: 08-08-2023 Cognitive function Voice/Name [facility] Work Phone: 08-03-2023 Cognitive function Voice/Name [facility] Work Phone: 01-12-2023 Cognitive function Voice/Name [facility] Work Phone: 01-11-2023 Cognitive function Level Of Cons ciousness Awake;Disoriented [facility] Work Phone: 01-11-2023 Cognitive function Voice/Name [facility] Work Phone: 08-29-2022 Cognitive function Voice/Name [facility] Work Phone: 11-28-2019 Because of a physica l, mental, or emotional condition, do you have serious difficulty concentrating, remembering, or making decisions No 11/28/2019 8:42 AM EDT Nallely Sherwood RN No [facility] Clinical Notes 09-14-2015 to 03-30-2025 Debra Celeste RT(R) - 10/21/2024 10:30 AM Carlotta Patterson OD - 07/01/2024 10:05 AM ESTPatient Stanley Weller MD - 02/04/2024 8:15 AM EDT Note Date & Type Note Facility 03-30-2025 Note HNO ID: [id number] Author: DEBRA CELESTE RT(R) Service: ? Author Type: Technologist Type: Progress Notes Filed: 03/30/2025 15:30 Note Text: Radiology Service Progress Note PATIENT NAME: Sebastien Owens DATE OF SERVICE: March 30, 2025 TIME: 3:30 PM PATIENT IDENTITY VERIFICATION COMPLETED USING TWO (2) IDENTIFIERS: Name and Date of confirmed by patient verbally. FALL SCREENING: Has the patient had 2 falls in the last year or 1 fall with injury or currently using an Ambulatory Assistive Device (Walker, Cane, Wheelchair, Crutches, etc.)? No PATIENT GENDER DATA: Assigned male at PATIENT RELEVANT IMPLANT DATA REVIEWED: Not Applicable PATIENT PRESENTS WITH AN IMPLANTABLE OR ATTACHED CANDY CATCHER: No RADIOLOGY DEPARTMENT: General X-ray: Exam(s) Completed: Spine X-Ray(s): Thoracic , SWIMMERS PERIPHERAL IV DATA: Not applicable SIGNED BY: RT Rajesh(R) March 30, 2025 3:30 PM [facility] 10-21-2024 History of Presen t illness Narrative Radiology Service Progress Note PATIENT NAME: Sebastien Owens DATE OF SERVICE: October 21, 2024 TIME: 10:51 AM PATIENT IDENTITY VERIFICATION COMPLETED USING TWO (2) IDENTIFIERS: Name and Date of confirmed by patient verbally. FALL SCREENING: Has the patient had 2 falls in the last year or 1 fall with injury or currently using an Ambulatory Assistive Device (Walker, Cane, Wheelchair, Crutches, etc.)? No PATIENT GENDER DATA: Assigned male at PATIENT RELEVANT IMPLANT DATA REVIEWED: Not Applicable PATIENT PRESENTS WITH AN IMPLANTABLE OR ATTACHED CANDY CATCHER: No RADIOLOGY DEPARTMENT: General X-ray: Exam(s) Completed: Upper Extremity X-Ray(s): Shoulder, AP / TRUE AP left , OUTSIDE ORDER PERIPHERAL IV DATA: Not applicable SIGNED BY: RT Rajesh(Shanell) October 21, 2024 10:51 AM documented in this encounter [facility] 10-21-2024 Note HNO ID: [id number] Author: DEBRA CELESTE RT(R) Service: ? Author Type: Technologist Type: Progress Notes Filed: 10/21/2024 10:52 Note Text: Radiology Service Progress Note PATIENT NAME: Sebastien Owens DATE OF SERVICE: October 21, 2024 TIME: 10:51 AM PATIENT IDENTITY VERIFICATION COMPLETED USING TWO (2) IDENTIFIERS: Name and Date of confirmed by patient verbally. FALL SCREENING: Has the patient had 2 falls in the last year or 1 fall with injury or currently using an Ambulatory Assistive Device (Walker, Cane, Wheelchair, Crutches, etc.)? No PATIENT GENDER DATA: Assigned male at PATIENT RELEVANT IMPLANT DATA REVIEWED: Not Applicable PATIENT PRESENTS WITH AN IMPLANTABLE OR ATTACHED CANDY CATCHER: No RADIOLOGY DEPARTMENT: General X-ray: Exam(s) Completed: Upper Extremity X-Ray(s): Shoulder, AP / TRUE AP left , OUTSIDE ORDER PERIPHERAL IV DATA: Not applicable SIGNED BY: RT Rajesh(R) October 21, 2024 10:51 AM [facility] 07-01-2024 Note HNO ID: [id number] Author: CARLOTTA CREWS OD Service: ? Author Type: MACHINE HELPER Type: Progress Notes Filed: 07/01/2024 10:07 Note Text: 1. Combined forms of age-related cataract of both eyes Mild visual significance- monitor Finalized spec rx 2. Posterior vitreous detachment of right eye Stable Retina precautions discussed 3. Squamous blepharitis of upper and lower eyelids of both eyes Recommended warm compresses and lid scrubs 4. Retinal hemorrhage, left eye Isolated drance heme 1.5DD from nerve Educated pt Plan to follow-up in 3 months for recheck (dilation of both eyes) Carlotta Crews OD July 01, 2024 10:05 AM [facility] 07-01-2024 History of Presen t illness Narrative 1. Combined forms of age-related cataract of both eyes Mild visual significance- monitor Finalized spec rx 2. Posterior vitreous detachment of right eye Stable Retina precautions discussed 3. Squamous blepharitis of upper and lower eyelids of both eyes Recommended warm compresses and lid scrubs 4. Retinal hemorrhage, left eye Isolated drance heme 1.5DD from nerve Educated pt Plan to follow-up in 3 months for recheck (dilation of both eyes) Carlotta Crews OD July 01, 2024 10:05 AM documented in this encounter [facility] 07-01-2024 Instructions Carlotta Crews OD - 07/01/2024 9:42 AM EST Images from the original note were not included. documented in this encounter [facility] 02-04-2024 Attending History and physical note UPDATED PROCEDURAL SEDATION HISTORY AND PHYSICAL EXAMINATION SERVICE DATE: 02/04/2024 SERVICE TIME: 8:39 AM PHYSICAL EXAM MUST BE COMPLETED ON ADMISSION PROCEDURE: Procedure Indications: The History and Physical (completed in the past 30 days) has been reviewed and the patient has been examined. The contents accurately reflect the patient's condition with the following additions or revisions since the H&P was completed. ASA Class: ASA Class: Patient with severe systemic disease Examination indicates no changes. AIRWAY: Airway Visualization of Uvula: Yes Mouth opening greater than 2 fingerbreadths: Yes Neck Full Range of Motion: Yes LUNGS: Lungs clear to auscultation CARDIAC: Regular rhythm,Regular rate Provisional Diagnosis/Treatment Plan: improved nausea, screening colonoscopy - EGD and Colonoscopy Sedation Goal: Moderate This H&P can be found in the attached. SIGNATURE: Stanley Sandoval MD PATIENT NAME: Sebastien Owens DATE: February 04, 2024 TIME: 8:39 AM Source Note - Stanley Sandoval MD - 02/04/2024 8:15 AM EDT 07/13/2023 Sebastien Owens [id number] SURGEON: Dr. Sandoval PRIMARY DIAGNOSIS: Nausea, Bloating, Constipation HPI: Sebastien Owens is a 73 year old male [...] Denies hematochezia or melena. 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 RESP: patient denies a history of any respiratory problems. CARD: HX of cardiac stents and AK. GI: Endorses GERD and hx of bleeding varices. : Endorses urine retention. ENDO: patient denies diabetes, thyroid problems, and steroid use. HEME: patient denies any hematology problems including bleeding, bruising, or anemia. ALLERGIES: Tramadol and Mold PAST SURGICAL HISTORY PAST SURGICAL HISTORY Procedure Laterality Date ARTHRP KNE CONDYLE&PLATU MEDIAL&LAT COMPARTMENTS 1998 Knee replacement, total left, per Dr. Melara CHOLECYSTECTOMY 05/07/2013 CHOLECYSTECTOMY 2012 COLONOSCOPY 07/11/2021 repeat in 5 years COLONOSCOPY FLX DX W/COLLJ SPEC WHEN PFRMD 10/11/2010 Colonoscopy COLONOSCOPY W/BIOPSY SINGLE/MULTIPLE 09/18/2016 normal EGD TRANSORAL BIOPSY SINGLE/MULTIPLE 09/29/2010 WC inpt H-pylori negative EGD TRANSORAL BIOPSY SINGLE/MULTIPLE 09/18/2016 mild gastritis, [facility]J 07/11/2021 ESOPHAGOGASTRODUODENOSCOPY TRANSORAL DIAGNOSTIC 03/29/2009 [facility] inpt EGD H-pylori negative ESOPHAGOGASTRODUODENOSCOPY TRANSORAL DIAGNOSTIC [...] C (97.8 F) Ht 167.6 cm (5' 6) Wt 86.9 kg (191 lb 9.6 oz) SpO2 96% BMI 30.93 kg/m GENERAL: Well appearing, alert, in no acute distress, well-hydrated, well nourished. CARDIAC: Rate: normal LUNGS: Lungs clear to auscultation. No wheezing, rhonchi, rales. ABDOMEN: Soft, non-tender to palpation IMPRESSION: Sebastien Owens is a 73 year old male with worsening nausea, bloating, and constipation. Last EGD/colonoscopy was Jun 2021. EGD showed gastritis with non-severe reflux esophagitis. Colonoscopy had poor prep, but was otherwise normal. PLAN: -Schedule for EGD/Colonoscopy at [place] with MAC anesthesia -2 day golytely prep Mishel Mckeon, General Surgery PGY5 I saw and evaluated the patient. Discussed with the resident and agree with resident's findings and plan as documented in the resident's note. Stanley Sandoval MD I obtained a KUB which demonstrated [...] staying on clear liquids during that time. [facility] 02-04-2024 History and physical note 07/13/2023 Sebastien Owens [id number] SURGEON: Dr. Sandoval PRIMARY DIAGNOSIS: Nausea, Bloating, Constipation HPI: Sebastien Owens is a 73 year old male [...] Denies hematochezia or melena. 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 RESP: patient denies a history of any respiratory problems. CARD: HX of cardiac stents and AK. GI: Endorses GERD and hx of bleeding varices. : Endorses urine retention. ENDO: patient denies diabetes, thyroid problems, and steroid use. HEME: patient denies any hematology problems including bleeding, bruising, or anemia. ALLERGIES: Tramadol and Mold PAST SURGICAL HISTORY PAST SURGICAL HISTORY Procedure Laterality Date ARTHRP KNE CONDYLE&PLATU MEDIAL&LAT COMPARTMENTS 1998 Knee replacement, total left, per Dr. Melara CHOLECYSTECTOMY 05/07/2013 CHOLECYSTECTOMY 2012 COLONOSCOPY 07/11/2021 repeat in 5 years COLONOSCOPY FLX DX W/COLLJ SPEC WHEN PFRMD 10/11/2010 Colonoscopy COLONOSCOPY W/BIOPSY SINGLE/MULTIPLE 09/18/2016 normal EGD TRANSORAL BIOPSY SINGLE/MULTIPLE 09/29/2010 [facility] inpt H-pylori negative EGD TRANSORAL BIOPSY SINGLE/MULTIPLE 09/18/2016 mild gastritis, GERD EGD W/O [facility] SPEC VARICIES INJ 07/11/2021 ESOPHAGOGASTRODUODENOSCOPY TRANSORAL DIAGNOSTIC 03/29/2009 [facility] inpt EGD H-pylori negative ESOPHAGOGASTRODUODENOSCOPY TRANSORAL DIAGNOSTIC [...] C (97.8 F) Ht 167.6 cm (5' 6) Wt 86.9 kg (191 lb 9.6 oz) SpO2 96% BMI 30.93 kg/m GENERAL: Well appearing, alert, in no acute distress, well-hydrated, well nourished. CARDIAC: Rate: normal LUNGS: Lungs clear to auscultation. No wheezing, rhonchi, rales. ABDOMEN: Soft, non-tender to palpation IMPRESSION: Sebastien Owens is a 73 year old male with worsening nausea, bloating, and constipation. Last EGD/colonoscopy was Jun 2021. EGD showed gastritis with non-severe reflux esophagitis. Colonoscopy had poor prep, but was otherwise normal. PLAN: -Schedule for EGD/Colonoscopy at [place] with MAC anesthesia -2 day golytely prep Mishel Mckeon, DO General Surgery PGY5 I saw and evaluated the patient. Discussed with the resident and agree with resident's findings and plan as documented in the resident's note. Stanley Sandoval MD I obtained a KUB which demonstrated [...] staying on clear liquids during that time. T [facility] 02-04-2024 History and physical note UPDATED PROCEDURAL SEDATION HISTORY AND PHYSICAL EXAMINATION SERVICE DATE: 02/04/2024 SERVICE TIME: 8:39 AM PHYSICAL EXAM MUST BE COMPLETED ON ADMISSION PROCEDURE: Procedure Indications: The History and Physical (completed in the past 30 days) has been reviewed and the patient has been examined. The contents accurately reflect the patient's condition with the following additions or revisions since the H&P was completed. ASA Class: ASA Class: Patient with severe systemic disease Examination indicates no changes. AIRWAY: Airway Visualization of Uvula: Yes Mouth opening greater than 2 fingerbreadths: Yes Neck Full Range of Motion: Yes LUNGS: Lungs clear to auscultation CARDIAC: Regular rhythm,Regular rate Provisional Diagnosis/Treatment Plan: improved nausea, screening colonoscopy - EGD and Colonoscopy Sedation Goal: Moderate This H&P can be found in the attached. SIGNATURE: Stanley Sandoval MD PATIENT NAME: Sebastien Owens DATE: February 04, 2024 TIME: 8:39 AM Source Note - Stanley Sandoval MD - 02/04/2024 8:15 AM EDT 07/13/2023 Sebastien Owens [id number] SURGEON: Dr. Sandoval PRIMARY DIAGNOSIS: Nausea, Bloating, Constipation HPI: Sebastien Owens is a 73 year old male [...] Denies hematochezia or melena. 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 RESP: patient denies a history of any respiratory problems. CARD: HX of cardiac stents and AK. GI: Endorses GERD and hx of bleeding varices. : Endorses urine retention. ENDO: patient denies diabetes, thyroid problems, and steroid use. HEME: patient denies any hematology problems including bleeding, bruising, or anemia. ALLERGIES: Tramadol and Mold PAST SURGICAL HISTORY PAST SURGICAL HISTORY Procedure Laterality Date ARTHRP [...] C (97.8 F) Ht 167.6 cm (5' 6) Wt 86.9 kg (191 lb 9.6 oz) SpO2 96% BMI 30.93 kg/m GENERAL: Well appearing, alert, in no acute distress, well-hydrated, well nourished. CARDIAC: Rate: normal LUNGS: Lungs clear to auscultation. No wheezing, rhonchi, rales. ABDOMEN: Soft, non-tender to palpation IMPRESSION: Sebastien Owens is a 73 year old male with worsening nausea, bloating, and constipation. Last EGD/colonoscopy was Jun 2021. EGD showed gastritis with non-severe reflux esophagitis. Colonoscopy had poor prep, but was otherwise normal. PLAN: -Schedule for EGD/Colonoscopy at [place] with MAC anesthesia -2 day golytely prep Mishel Mckeon, General Surgery PGY5 I saw and evaluated the patient. Discussed with the resident and agree with resident's findings and plan as documented in the resident's note. Stanley Sandoval MD I obtained a KUB which demonstrated [...] staying on clear liquids during that time. 07/13/2023 Sebastien Owens [id number] SURGEON: Dr. Sandoval PRIMARY DIAGNOSIS: Nausea, Bloating, Constipation HPI: Sebastien Owens is a 73 year old male [...] Denies hematochezia or melena. 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 RESP: patient denies a history of any respiratory problems. CARD: HX of cardiac stents and AK. GI: Endorses GERD and hx of bleeding varices. : Endorses urine retention. ENDO: patient denies diabetes, thyroid problems, and steroid use. HEME: patient denies any hematology problems including bleeding, bruising, or anemia. ALLERGIES: Tramadol and Mold PAST SURGICAL HISTORY PAST SURGICAL HISTORY Procedure Laterality Date ARTHRP KNE CONDYLE&PLATU MEDIAL&LAT COMPARTMENTS 1998 Knee replacement, total left, per Dr. Melraa CHOLECYSTECTOMY 05/07/2013 CHOLECYSTECTOMY 2012 COLONOSCOPY 07/11/2021 repeat in 5 years COLONOSCOPY FLX DX W/COLLJ SPEC WHEN PFRMD 10/11/2010 Colonoscopy COLONOSCOPY W/BIOPSY SINGLE/MULTIPLE 09/18/2016 normal EGD TRANSORAL BIOPSY SINGLE/MULTIPLE 09/29/2010 [facility] inpt H-pylori negative EGD TRANSORAL BIOPSY SINGLE/MULTIPLE 09/18/2016 mild gastritis, GERD EGD W/O BRSH SPEC VARICIES INJ 07/11/2021 ESOPHAGOGASTRODUODENOSCOPY TRANSORAL DIAGNOSTIC 03/29/2009 [facility] inpt EGD H-pylori negative ESOPHAGOGASTRODUODENOSCOPY TRANSORAL DIAGNOSTIC [...] C (97.8 F) Ht 167.6 cm (5' 6) Wt 86.9 kg (191 lb 9.6 oz) SpO2 96% BMI 30.93 kg/m GENERAL: Well appearing, alert, in no acute distress, well-hydrated, well nourished. CARDIAC: Rate: normal LUNGS: Lungs clear to auscultation. No wheezing, rhonchi, rales. ABDOMEN: Soft, non-tender to palpation IMPRESSION: Sebastien Owens is a 73 year old male with worsening nausea, bloating, and constipation. Last EGD/colonoscopy was Jun 2021. EGD showed gastritis with non-severe reflux esophagitis. Colonoscopy had poor prep, but was otherwise normal. PLAN: -Schedule for EGD/Colonoscopy at [place] with MAC anesthesia -2 day golytely prep Mishel Mckeon, General Surgery PGY5 I saw and evaluated the patient. Discussed with the resident and agree with resident's findings and plan as documented in the resident's note. Stanley Sandoval MD I obtained a KUB which demonstrated [...] staying on clear liquids during that time. documented in this encounter [facility] 01-24-2024 Telephone encounter Note Ilda: Could you please review Dr. Sandoval's note from Sebastien's 07/13/2023 visit? I have questions, before I call him regarding his prep for his colonoscopy that is scheduled on 02/04/2024. 1) his last KUB was completed on 07/13/2023-does he need another one before he begins his prep? 2) according to Dr. Sandoval's note: I discussed with him that I would recommend a 2-day GoLytely prep and to try his bowel regime probably 3 to 4 days prior to starting the prep and staying on clear liquids during that time. Does this mean that the patient will be on clear liquids for 6 days prior to his colonoscopy - 4 days while doing his bowel regime and 2 days doing the bowel prep? Please advise. Argenis Escalera RN January 24, 2024 11:[address] [facility] 01-24-2024 Miscellaneous Notes Ilda: Could you please review Dr. Sandoval's note from Sebastien's 07/13/2023 visit? I have questions, before I call him regarding his prep for his colonoscopy that is scheduled on 02/04/2024. 1) his last KUB was completed on 07/13/2023-does he need another one before he begins his prep? 2) according to Dr. Sandoval's note: I discussed with him that I would recommend a 2-day GoLytely prep and to try his bowel regime probably 3 to 4 days prior to starting the prep and staying on clear liquids during that time. Does this mean that the patient will be on clear liquids for 6 days prior to his colonoscopy - 4 days while doing his bowel regime and 2 days doing the bowel prep? Please advise. Argenis Escalera RN January 24, 2024 11:15 AM Patients eliza Villanueva left voicemail wanting someone to call them in regards to prep instructions as they have some questions Please call patient at [phone] to review prep again Thank you [employer] Images from the original note were not included. Patient aware [employer] Stanley Sandoval MD You 15 hours ago (5:30 PM) Schedule and make sure to continue those medications no matter what others say Clearance forms receieved. Patient cleared Dr. Diallo instructions state Cradiac stent 08/06/2023 - needs to CONTINUE Aspirin and Plavix Dr Lori, Please advise if patient is okay to proceed [employer] Clearance forms to be faxed Images from the original note were not included. Stanley Sandoval MD You 12 hours ago (7:25 PM) See if cardiology will clear and if so can do, otherwise, will postpone Patients called in to inform office Sebastien had 2 heart stents placed last week at [facility] and has a follow up with them next Sunday08/21/2023. Patient is currently scheduled for diagnostic colonoscopy and EGD in [place] with Dr. Sandoval on 09/03/2023 Dr. Sandoval please advise if patient should be postponed or if we can proceed with plan of care for procedure? Should we send cardiac clearance forms upon follow up with [facility] next Sunday? [employer] 09/03/2023 COLON/EGD DIAG [place] PATIENT ON WAITLIST FOR [facility] IN [place] ONLY [employer] end documented in this encounter [facility] 01-24-2024 Telephone encounter Note Patients Rich left voicemail wanting someone to call them in regards to prep instructions as they have some questions Please call patient at [phone] to review prep again Thank you [employer] [facility] 09-11-2023 Note Exam Date Time Procedure Performing Provider Status 09/11/23 12:47 PM Echocardiogram, Adult - CV Auth (Verified) [facility] 04-03-2024 Hospital Discharge instructions Patient Education 08/29/2023 17:18:32 Bradycardia Bradycardia When your heart rate is slow, less than 60 beats per minute, it is called bradycardia. Bradycardia can be normal, caused by medicines, or a sign of a disease. The slow heart rate may not be constant;it can come and go. It is a concern when it is very low, or you have symptoms. Signs and symptoms The following are signs and symptoms of bradycardia: Heart rate less than 60 per minute Dizziness or feeling lightheaded Weakness Trouble breathing Fainting Sleepiness More trouble exercising than usual because of fatigue Confusion or trouble concentrating Causes There are many causes of bradycardia. Some can be related to your heart, but some may be related toother factors. [id number] causes: Advanced age Side effect of certain medicines (such as beta-blockers, calcium channel blockers, digitalis, antiarrhythmic medicines like amiodarone, clonidine, lithium) Medical conditions such as hypoglycemia (low blood sugar), hypothyroidism (low thyroid), electrolyte disorder, hypothermia, sleep apnea Athletes, especially long-distance runners, may have a slow heart rate. This can be normal. Sleep apnea Brain injury such as stroke or bleeding inside the brain Heart-related causes: Coronary artery disease (angina or prior heart attack, also known as acute myocardial infarction, or AMI) Heart valve disease Heart muscle disease (cardiomyopathy) Congestive heart failure Sick sinus syndrome, which is when your heart's natural pacemaker is no longer working properly Diseases that infiltrate the heart such as sarcoid Heart infections Sometimes the cause for the arrhythmia cannot be found. Bradycardia that causes symptoms is sometimes reversible, and can be treated with medicines. When more severe bradycardia persists, a pacemaker is generally recommended. When the bradycardia does notcause symptoms, your doctor may decide to evaluate it in his or her office. Home care The following will help you care for yourself at home: Resume your usual activities when you are feeling back to normal. If you develop any of the symptoms below during exertion, then you should not exert yourself until evaluated further by your doctor. Work with your doctor on any needed lifestyle changes, such as changing your diet, stopping smokingif you are a smoker, and a planned exercise program. Follow-up care Follow up with your doctor, or as advised. Call 911 Call 911 if any of the following occur: Chest pain Trouble breathing Slow heart rate with dizziness or lightheadedness Fainting or loss of consciousness Chest, shoulder, arm, neck, or back pain Slow heart rate (under 50 beats per minute) if associated with symptoms When to seek medical advice Call your healthcare provider right away if any of the following occur: Occasional weakness, dizziness, or lightheadedness [id number] [employer] [place] [id number]. All rights reserved. This information is not intended as a substitute for professional medical care. Always follow yourhealthcare professional's instructions. 08/29/2023 17:18:29 About Arrhythmias About Arrhythmias Electrical impulses cause the normal heart to beat 60 to 100 times a minute while at rest. These impulses come from a natural pacemaker deep inside the heart muscle. Each impulse causes the heart muscle to contract. This causes the blood to flow through the heart and out to the tissues and organs of your body. An arrhythmia is a change from the normal speed or pattern of these electrical impulses. This can cause the heart to beat too fast (tachycardia); or too slow (bradycardia); or in an unsteady pattern (irregular rhythm). Symptoms of arrhythmias Different people experience arrhythmias differently. Sometimes they may not have symptoms, but justnotice a change in their pulse. Symptoms can include: Fluttering feeling in the chest Shortness of breath Chest pain or pressure Neck fullness Lightheadedness or dizziness Fainting or almost fainting Palpitations (the sense that your heart is fluttering or beating fast or hard or irregularly) Tiredness, fatigue, or weakness Cardiac arrest Causes of arrhythmias Arrhythmias are most often due to heart disease such as: Coronary artery disease Heart valve disease Enlarged heart High blood pressure Heart failure Other causes of arrhythmia include: Certain medicines (such as asthma inhalers and decongestants) Some herbal supplements Cardiac stimulant drugs (such as cocaine, amphetamine, diet pills, certain decongestant cold medicines, caffeine, and nicotine) Excessive alcohol use Anxiety and panic disorder Thyroid disease Anemia Diabetes Sleep apnea Obesity Congenital heart disease Cardiac genetic diseases Arrhythmias can often be prevented. The cause and type of arrhythmia determines the best treatment.Sometimes your doctor may want to monitor your heart rate over a 24-hour period or longer. This canhelp identify the cause of your arrhythmia and find the best treatment. This can be done with a Holter monitor, a portable EKG recording device attached by wires to your chest. Or you may get an event monitor, which you can place over the skin in front of your heart to record heart rhythms. You cancarry this with you as you go about your routine activities during the monitoring period. Implantable loop recorders may also be used to monitor the heart rhythm for up to 2 years. This miniature device is placed underneath the skin overlying the heart. Home care The following guidelines will help you care for yourself at home: Avoid cardiac stimulants (such as cocaine, amphetamine, diet pills, certain decongestant cold medicines, caffeine, and nicotine). If you smoke, stop smoking. Contact your doctor or a local stop-smoking program for help. Tell your doctor about any prescription, [id number]-[id number], or herbal medicines you take. These may be affecting your heart rhythm. Follow-up care Follow up with your healthcare provider, or as advised. If a Holter monitor has been recommended, contact the heavy coil winder you have been referred to as soon as you can moss picker the device. Other outpatient tests may also be arranged for you at that time. Call 911 This is the fastest and safest way to get to the emergency department. The paramedics can also start treatment on the way to the hospital, if needed. Don't wait until your symptoms are severe to call 911. Other reasons to call 911 besides chest paininclude: Chest, shoulder, arm, neck, or back pain Shortness of breath Feeling lightheaded, faint, or dizzy Unexplained fainting Rapid heart beat Slower than usual heart rate compared to your normal Very irregular heartbeat Chest pain (angina) with weakness, dizziness, heavy sweating, nausea, or vomiting Extreme drowsiness, or confusion Weakness of an arm or leg or one side of the face Difficulty with speech or vision When to seek medical advice Remember, things are not always like they are on TV. Sometimes it is not so obvious. You may only feel weak or just not right. If it is not clear or if you have any doubt, call for advice. Seek help for chest pain, or it feels different from usual, even if your symptoms are mild. Don't drive yourself. Have someone else drive. If no one can drive you, call 911. If your doctor has given you medicines to take when you have symptoms, take them, but don't delay getting help while trying to find them. [phone] [employer] [address] [place] [address]. All rights reserved. This information is not intended as a substitute for professional medical care. Always follow yourhealthcare professional's instructions. Follow Up Care 08/29/2023 14:19:54 With:TREASURE GUZMAN MD Address: [address] [facility] [address] [address]- When:2-4 days With:AFUA VELEZ DO Address: [address] [place] [address]- When:2-4 days [facility] 04-03-2024 Note Discharge Instructions Thank you for allowing [facility] to assist you with your healthcare needs. The following is importantdischarge information regarding your hospital visit. Diagnosis from Today's Visit Bigeminy Decreased heart rate What to Do Next Instructions from Your Care Team No qualifying data available. Post Acute Orders No qualifying data available. You Need to Schedule the Following Appointments Follow Up with TREASURE GUZMAN MD When Within 2-4 days Where: [address] [facility] [address] [place] [address]- Follow Up with AFUA VELEZ DO When Within 2-4 days Where: [address] [place] [address]- Allergies traMADol Medications Please ask your primary doctor or pharmacist before taking any other medication not listed, including over the counter drugs, herbal medications, vitamins and or supplements as they may interact withyour home medications. What How Much When Why Instructions Last Dose Unchanged acetaminophen- hydrocodone ([place] 325- 5 mg oral tablet) 1 tab(s) by mouth Every 4 hours as needed for Pain, scale 4-10 Intractable abdominal pain Duration: 2 Days Unchanged ALPRAZolam (alprazolam 0.5 mg oral tablet) 1 tab(s) by mouth Three (3) times a day as needed for for anxiety Unchanged aspirin (aspirin 81 mg oral delayed release tablet) 1 tab(s) by mouth Every day Unchanged cholecalciferol (Vitamin D3 50,000 intl units (1250 mcg) oral capsule) 1 cap by mouth Every week Unchanged ferrous sulfate (ferrous sulfate 325 mg (65 mg elemental iron) oral tablet) 1 tab(s) by mouth Three (3) times a day Unchanged finasteride (finasteride 5 mg oral tablet) 1 tab(s) by mouth Once a day Unchanged lisinopril (lisinopril 5 mg oral tablet) 1 tab(s) by mouth Every day Unchanged ondansetron (Zofran 4 mg oral tablet) 1 tab(s) by mouth Every 6 hours as needed for Nausea/Vomiting Duration: 3 Days Unchanged pantoprazole (pantoprazole 40 mg oral enteric coated tablet) 1 tab(s) by mouth Two (2) times daily before meals Duration: 30 Days Unchanged prasugrel (prasugrel 10 mg oral tablet) 1 tab(s) by mouth Every day Unchanged promethazine (promethazine 12.5 mg rectal suppository) 1 suppository(ies) in the rectum Every 4 hours as needed for for nausea/vomiting Unchanged sucralfate (Carafate 1 g oral tablet) 1 tab(s) by mouth Four (4) times daily-before meals and at bedtime Unchanged tamsulosin (tamsulosin 0.4 mg oral capsule) 1 cap by mouth Once a day Please take this list to your next doctor s visit. Bring all medications you take, including over the counter medications, herbals and other supplements with you to your doctor s visit. Patients and families are reminded to discard old lists and to update any records with all medication providers or retail pharmacies. Education Materials Bradycardia When your heart rate is slow, less than 60 beats per minute, it is called bradycardia. Bradycardia can be normal, caused by medicines, or a sign of a disease. The slow heart rate may not be constant;it can come and go. It is a concern when it is very low, or you have symptoms. Signs and symptoms The following are signs and symptoms of bradycardia: Heart rate less than 60 per minute Dizziness or feeling lightheaded Weakness Trouble breathing Fainting Sleepiness More trouble exercising than usual because of fatigue Confusion or trouble concentrating Causes There are many causes of bradycardia. Some can be related to your heart, but some may be related toother factors. [id number] causes: Advanced age Side effect of certain medicines (such as beta-blockers, calcium channel blockers, digitalis, antiarrhythmic medicines like amiodarone, clonidine, lithium) Medical conditions such as hypoglycemia (low blood sugar), hypothyroidism (low thyroid), electrolyte disorder, hypothermia, sleep apnea Athletes, especially long-distance runners, may have a slow heart rate. This can be normal. Sleep apnea Brain injury such as stroke or bleeding inside the brain Heart-related causes: Coronary artery disease (angina or prior heart attack, also known as acute myocardial infarction, or AMI) Heart valve disease Heart muscle disease (cardiomyopathy) Congestive heart failure Sick sinus syndrome, which is when your heart's natural pacemaker is no longer working properly Diseases that infiltrate the heart such as sarcoid Heart infections Sometimes the cause for the arrhythmia cannot be found. Bradycardia that causes symptoms is sometimes reversible, and can be treated with medicines. When more severe bradycardia persists, a pacemaker is generally recommended. When the bradycardia does notcause symptoms, your doctor may decide to evaluate it in his or her office. Home care The following will help you care for yourself at home: Resume your usual activities when you are feeling back to normal. If you develop any of the symptoms below during exertion, then you should not exert yourself until evaluated further by your doctor. Work with your doctor on any needed lifestyle changes, such as changing your diet, stopping smokingif you are a smoker, and a planned exercise program. Follow-up care Follow up with your doctor, or as advised. Call 911 Call 911 if any of the following occur: Chest pain Trouble breathing Slow heart rate with dizziness or lightheadedness Fainting or loss of consciousness Chest, shoulder, arm, neck, or back pain Slow heart rate (under 50 beats per minute) if associated with symptoms When to seek medical advice Call your healthcare provider right away if any of the following occur: Occasional weakness, dizziness, or lightheadedness [phone] [employer] [place] [address], [place] [address]. All rights reserved. This information is not intended as a substitute for professional medical care. Always follow yourhealthcare professional's instructions. About Arrhythmias Electrical impulses cause the normal heart to beat 60 to 100 times a minute while at rest. These impulses come from a natural pacemaker deep inside the heart muscle. Each impulse causes the heart muscle to contract. This causes the blood to flow through the heart and out to the tissues and organs of your body. An arrhythmia is a change from the normal speed or pattern of these electrical impulses. This can cause the heart to beat too fast (tachycardia); or too slow (bradycardia); or in an unsteady pattern (irregular rhythm). Symptoms of arrhythmias Different people experience arrhythmias differently. Sometimes they may not have symptoms, but justnotice a change in their pulse. Symptoms can include: Fluttering feeling in the chest Shortness of breath Chest pain or pressure Neck fullness Lightheadedness or dizziness Fainting or almost fainting Palpitations (the sense that your heart is fluttering or beating fast or hard or irregularly) Tiredness, fatigue, or weakness Cardiac arrest Causes of arrhythmias Arrhythmias are most often due to heart disease such as: Coronary artery disease Heart valve disease Enlarged heart High blood pressure Heart failure Other causes of arrhythmia include: Certain medicines (such as asthma inhalers and decongestants) Some herbal supplements Cardiac stimulant drugs (such as cocaine, amphetamine, diet pills, certain decongestant cold medicines, caffeine, and nicotine) Excessive alcohol use Anxiety and panic disorder Thyroid disease Anemia Diabetes Sleep apnea Obesity Congenital heart disease Cardiac genetic diseases Arrhythmias can often be prevented. The cause and type of arrhythmia determines the best treatment.Sometimes your doctor may want to monitor your heart rate over a 24-hour period or longer. This canhelp identify the cause of your arrhythmia and find the best treatment. This can be done with a Holter monitor, a portable EKG recording device attached by wires to your chest. Or you may get an event monitor, which you can place over the skin in front of your heart to record heart rhythms. You cancarry this with you as you go about your routine activities during the monitoring period. Implantable loop recorders may also be used to monitor the heart rhythm for up to 2 years. This miniature device is placed underneath the skin overlying the heart. Home care The following guidelines will help you care for yourself at home: Avoid cardiac stimulants (such as cocaine, amphetamine, diet pills, certain decongestant cold medicines, caffeine, and nicotine). If you smoke, stop smoking. Contact your doctor or a local stop-smoking program for help. Tell your doctor about any prescription, [id number], or herbal medicines you take. These may be affecting your heart rhythm. Follow-up care Follow up with your healthcare provider, or as advised. If a Holter monitor has been recommended, contact the heavy coil winder you have been referred to as soon as you can moss picker the device. Other outpatient tests may also be arranged for you at that time. Call 911 This is the fastest and safest way to get to the emergency department. The paramedics can also start treatment on the way to the hospital, if needed. Don't wait until your symptoms are severe to call 911. Other reasons to call 911 besides chest paininclude: Chest, shoulder, arm, neck, or back pain Shortness of breath Feeling lightheaded, faint, or dizzy Unexplained fainting Rapid heart beat Slower than usual heart rate compared to your normal Very irregular heartbeat Chest pain (angina) with weakness, dizziness, heavy sweating, nausea, or vomiting Extreme drowsiness, or confusion Weakness of an arm or leg or one side of the face Difficulty with speech or vision When to seek medical advice Remember, things are not always like they are on TV. Sometimes it is not so obvious. You may only feel weak or just not right. If it is not clear or if you have any doubt, call for advice. Seek help for chest pain, or it feels different from usual, even if your symptoms are mild. Don't drive yourself. Have someone else drive. If no one can drive you, call 911. If your doctor has given you medicines to take when you have symptoms, take them, but don't delay getting help while trying to find them. [phone] [employer] [address] [place] [address]. All rights reserved. This information is not intended as a substitute for professional medical care. Always follow yourhealthcare professional's instructions. Additional Information VACCINATE! IT SAVES LIVES! Members of the community who have not yet received the COVID-19 vaccine and would like to receive it can visit one of [facility] vaccine clinics. There are many vaccine clinic locations within the [facility]. For locations and available times, please visit [email or web address] It is important to note that some COVID mobile vaccine clinics are held outdoors and may be canceled in rainy or stormy conditions. To learn more about pediatric vaccinations (ages 5-11), we invite you to visit the [facility] webpage. [email or web address] learn more about the COVID-19 vaccine, we invite you to visit the CDC website for a list of frequently asked questions. https://www.cdc.gov/coronavirus/2019-ncov/vaccines/faq.html [place] [facility] Patient Portal Access Instructions: Stay connected with your healthcare team and access your personal medical information anytime with the [employer] [facility] Patient Portal. If you would like a full copy of your medical records please contact the [facility] Medical Records Department Sunday through Sunday between 8a.m. and 4:30p.m. Please follow the directions below to access the portal: 1.Access the email account you provided upon registration to the [facility].2.Look for an invitation email from [facility].3.Open the email and access the invitation link: Accept Invitation to [employer] [facility] [facility]4.Fill in the required herrera to create your account. Sign into [email or web address] with your username and password that you created in the above steps to stay up to date. You can then view a summary of results, a summary of your visits, and the ability to download your summaries to your computer or send the information securely to a physician. Remember that your healthcare information is confidential, so carefully consider who you will allow to register on the [employer] Patient Portal for access to your information. You can also access the [employer] [facility] Patient Portal on the [employer] jr. Simply click on Health Records under [facility] and then click on the [employer] logo. HOW TO SAFELY DISPOSE OF PRESCRIPTION MEDICATIONS Please use one of the following methods to safely dispose of your unused medications. 1.Use a drug disposal kit: the drug disposal pouch allows you to safely discard your old and unuseddrugs. Ask your nurse to give you one when you are discharged.2.Visit a local take-back location: Many local pharmacies and police departments have programs that collect old and unwanted prescriptiondrugs. Call your local pharmacy or go to http://bit.Tadcast/4B4Lg4i to find one close to you.3.Make use of household items: Use cat litter or old coffee grounds to dispose medications if other options arenot available. Mix your drugs with these household products, seal them in an airtight container andthrow it into the garbage. Call [facility]: [phone] to be sure your drugs can be disposed of in this way. Some medicines may require a different approach.4.Never flush your medications down the toilet. IF YOU HAVE BEEN PRESCRIBED AN OPIOIDS FOR PAIN If you have been prescribed an opioid (such as hydrocodone, oxycodone or morphine), it is critical to understand the possible side effects and risks of opioid pain medications. Even when taken as directed, opioids can have several side effects including: Tolerance, meaning you might need to take more of a medication for the same pain relief. Nausea, vomiting and/or constipation. Sleepiness, dizziness, dry mouth, confusion, depression or itching. Physical dependence, meaning you have withdrawal symptoms when a medication is stopped ? this can develop within a few days. KNOW YOUR RESPONSIBILITIES It is important to know exactly how much and how often to take the opioid pain medications you are prescribed. Never take opioids in higher amounts or more often than prescribed. Do not combine opioids with alcohol or other drugs that cause drowsiness, such as benzodiazepines, also known as benzos,including diazepam and alprazolam, muscle relaxants or sleep aids. Never sell or share prescriptionopioids. This is illegal. Store opioids in a secure place and out of reach of others (including children, family, friends and visitors). The last page(s) of this document has been signed and retained as a CHART COPY Signatures Patient Education Materials Bradycardia About Arrhythmias Medication Leaflets My discharge plan and instructions have been reviewed and explained to me and ILORAINE JOE M understand my current condition and have read and understand these discharge instructions. I have receiveda written copy of the plan/instructions. If I have questions, I am aware that I should contact my do ctor. Patient/Third Officer Signature: Date/Time: Relationship to Patient: Witness Name/Signature: Date/Time: [facility]04-03-2024 Note ORIGINAL EXAMINATION: ONE XRAY VIEW OF THE CHEST08/29/2023 3:06 pm COMPARISON: 06/15/2021 HISTORY: ORDERING SYSTEM PROVIDED HISTORY: Reason for Exam: chest pain and bradycardia FINDINGS: Cardiomediastinal contours are within normal limits. Atherosclerosis of the aorta. No focal consolidation or pulmonary edema. No pleural effusion or visible pneumothorax. No acute osseous abnormality. Multilevel degenerative changes of the visualized spine. Surgical clips noted in the left lower neck. IMPRESSION: No acute cardiopulmonary process. I have personally reviewed the images of this examination and agree with the resident's findings and interpretations. Interpreted by: Hardy Garcia DO Preliminary Report By: Kevin Ruiz Electronically signed By Hardy Garcia DO Dictated Date: 08/29/2023 3:11:31 PM Prelim Date: 08/29/2023 3:21:59 PM Sign Date: 08/29/2023 3:21:59 PM [facility]ing [facility] NoteSinus rhythm Inferior infarct, old Electronic Signature: CASE DOWNING MD 08/29/2023 16:02:[address] [place] [address] 03-29-2024 Discharge summary Author Stevan Max [facility] August 24, 2023 10:20am Note Date/Time August 24, 2023 10: 11am [facility] Medical Records Department [address] [place] [address] Instructions for Home/Discharge Instructions 08/24/23 1007 MR#: [id number] Acct: [id number] Name: SEBASTIEN OWENS Rep #:[id number] : 1950 73 From: Stevan aquino MD PCP: Dr. Afua Velez DO Status:ADM IN Discharge Instructions Diet Discharge Diet: Low fat / Low cholesterol Activity Discharge Activity: Return to Normal Activity Dressing / Incision Call your doctor if you observe: Fever of 101 or Higher, Shortness of breath, Dizziness, Fainting spells, Swelling in the ankles, Chest pain and Increased palpitations (irregular heartbeat) Follow Up Care Test Results: Test results from this visit will be discussed in further detail at your follow- up appointment, if applicable. Discharge Plan Admission Admit Date/Time: 08/23/23 11:40 Attending Provider: Stevan Max Primary Care Provider: Afua Velez Consulting Providers: Darnell Booth Discharge Orders/Prescriptions Prescriptions: Continued ondansetron 4 mg tablet,disintegrating 4 mg PO Q8-12H PRN (Reason: nausea) famotidine 40 mg tablet 40 mg PO BID rosuvastatin 10 mg tablet 10 mg PO QHS cholecalciferol (vitamin D3) 1,250 mcg (50,000 unit) capsule 1,250 mcg PO WE allopurinol 100 mg Tablet 200 mg PO QHS tamsulosin 0.4 mg Capsule 0.4 mg PO QHS aspirin 81 mg Tablet,Chewable 81 mg PO DAILY finasteride 5 mg Tablet 5 mg PO QHS nitroglycerin 0.4 mg Tablet, Sublingual 0.4 mg sublingual Q5M PRN (Reason: Cardiac/Chest Pain) Qty: 0 0RF alprazolam [Xanax] 0.5 mg tablet 0.25 mg PO .COMPLEX Patient Comments: family states that last night pt had worse anxiety and was given 0.25mg at 9pm, and then 0.5mg at bedtime. Rx Instructions: 0.25 mg orally morning and afternoon; 0.5 mg orally qhs acetaminophen 500 mg Tablet 1,000 mg PO Q6H PRN PRN (Reason: Pain Score 1-3) Qty: 0 0RF amlodipine 5 mg tablet 5 mg PO QHS clopidogrel 75 mg Tablet 75 mg PO DAILY Qty: 30 11RF pantoprazole 20 mg tablet,delayed release (DR/EC) 40 mg PO BID Discontinued metoprolol tartrate 25 mg tablet 25 mg PO BID Patient Comments: PT WAS INCREASED TO 50MG, BUT THEN DECREASED BACK TO 25MG. Referrals / Follow Up: Afua Velez DO [Primary Care Provider] - Within 1 Week Sebastian Diallo DANCE THERAPIST, DANCE THERAPIST-C [Med Staff - Adv Practice Prof] - Within 1 Month Disposition Disposition (needs filled in before D/C Order can be placed): Home, Self Care 08/24/23 1020<Electronically signed by Stevan Max MD>Stevan Max MD CC: Dr. Darnell Booth MD; Dr. Afua Velez DO ~ Signed [facility] Work Phone: 1(487) 163-227903-29-2024 Discharge summary Author Erin Vivianajavy [facility] August 23, 2023 10:14pm Note Date/Time August 23, 2023 10: 54am [facility] Medical Records Department [address] [place] [address] Emergency Department Summary 08/23/23 MR#: [id number] Acct: [id number] Name: SEBASTIEN OWENS Rep #:[id number] : 1950 73 From: Teresa Roberts DO PCP: Dr. Afua Velez DO Status:ADM IN Location: ICU ICU05-1 HPI History of Present Illness Chief Complaint: Chest Other Detail of Chief Complaint: Bradycardia Informant: patient Narrative Narrative: Patient presents to the emergency department complaint of bradycardia. Patient states that he had a visiting nurse come by and she noted that he had heart ratein the 30s and at times into the 50s. Patient did describe some lightheadednesswith getting up this morning but no syncope. He denies chest pain. Patient states that he had 2 stents placed about 2 weeks ago. Patient with history of coronary artery disease as well as hypertension [facility] Medical History Abnormal nuclear stress test Alcoholism Anemia Anxiety Atherosclerosis of coronary artery without angina pectoris Back pain BiPAP (biphasic positive airway pressure) dependence BPH (benign prostatic hyperplasia) CAD S/P percutaneous coronary angioplasty Cardiopulmonary arrest Chronic pain Coronary artery disease Dementia Depression Essential (primary) hypertension GI hemorrhage Gout History of stress test Hyperlipidemia Multifocal PVCs with pairing Myocardial infarct Non-smoker NSTEMI (non-ST elevated myocardial infarction) (04/13/18) Obesity Osteoarthritis of right knee Pancreatitis Pulmonary embolism Rheumatoid arthritis Sleep apnea Traumatic brain injury Unstable angina Ventricular tachycardia Home Medications allopurinol 100 mg tablet 200 mg PO QHS gout 11/07/20 [History Last Taken 08/02/23] aspirin 81 mg chewable tablet 81 mg PO DAILY thinner 11/07/20 [History Last Taken 08/03/23] finasteride 5 mg tablet 5 mg PO QHS urine retention 11/07/20 [History Last Taken 08/02/23] tamsulosin 0.4 mg capsule 0.4 mg PO QHS urinary retention 11/07/20 [History Last Taken 08/02/23] alprazolam 0.5 mg tablet (Xanax) 0.25 mg PO .COMPLEX anxiety 11/09/20 [History Last Taken 08/03/23 09:00] nitroglycerin 0.4 mg sublingual tablet 0.4 mg sublingual Q5M PRN Cardiac/Chest Pain #0 tabs 11/09/20 [Rx Last Taken Unknown] acetaminophen 500 mg tablet 1,000 mg (2 x 500 mg) PO Q6H PRN PRN Pain Score 1-3 #0 tabs 11/15/20 [Rx Last Taken Unknown] pantoprazole 40 mg tablet,delayed release 40 mg PO BID indigestion 01/11/23 [History Last Taken 08/03/23 10:00] famotidine 40 mg tablet 40 mg PO BID 06/14/23 [History Last Taken 08/03/23 10:00] ondansetron 4 mg disintegrating tablet 4 mg PO Q8-12H PRN nausea 06/14/23 [History Last Taken 08/03/23] rosuvastatin 10 mg tablet 10 mg PO QHS 06/14/23 [History Last Taken 08/02/23] amlodipine 5 mg tablet 5 mg PO QHS 08/03/23 [History Last Taken 08/02/23] clopidogrel 75 mg tablet 75 mg PO DAILY #30 tabs 08/08/23 [Rx Last Taken Unknown] cholecalciferol (vitamin D3) 1,250 mcg (50,000 unit) capsule 1,250 mcg PO QWEEK 08/21/23 [History Last Taken Unknown] metoprolol tartrate 50 mg tablet 25 mg PO BID 08/23/23 [History Last Taken Unknown] Allergy/AdvReac Type Severity Reaction Status Date / Time tramadol Allergy Severe anxiety Verified 08/23/23 10:33 mold Allergy Unknown unknown Verified 08/23/23 10:33 isosorbide AdvReac Mild Headache Verified 08/23/23 10:33 Family History Mother CAD (coronary artery disease) Surgical History History of coronary artery stent placement (08/06/23) History of knee surgery History of repair of rotator cuff Hx of cholecystectomy Social History household members: spouse Smoking Status: Never smoker alcohol intake: former details: Sober since 2010. substance use type: does not use ROS ROS ED ROS Narrative Lightheadedness Review of Systems ROS Unobtainable: other Constitutional Constitutional ED: Reports lethargy; Denies chills, fever(s), sweats or weight loss Eyes Eyes: Denies blurry vision, change in vision or diplopia ENT ENT ED: Denies rhinorrhea or sore throat Cardiovascular Cardiovascular: Denies chest pain, orthopnea or racing heartbeat Respiratory/Chest Respiratory/Chest: Reports dyspnea and dyspnea on exertion; Denies cough, orthopnea or sputum Gastrointestinal Gastrointestinal: Denies abdominal pain, diarrhea, nausea or vomiting Genitourinary Genitourinary ED: Denies dysuria, hematuria or urinary frequency Musculoskeletal Musculoskeletal: Denies arthralgias, back pain, myalgias or neck pain Integumentary Denies abscess, Abrasions or rash Neurologic Neurologic: Denies headache(s) or weakness Psychiatric Psychiatric: Denies anxiety, depression or suicidal thoughts Endocrine Endocrinology: Denies polydipsia, polyphagia or polyuria Hematologic/Lymphatic Hematologic/Lymphatic: Denies easy bleeding, easy bruising or lymphadenopathy Allergic/Immunologic Allergic/Immunologic ED: Denies mouth swelling, tongue swelling or urticaria EXAM Physical Exam Const Vital Signs: 08/23/23 10:34 08/23/23 10:33 08/23/23 10:41 Temperature 97.1 F L Temperature Source Temporal Pulse Rate 33 L 59 L Respiratory Rate 12 23 H Respiratory Effort Normal Blood Pressure 124/79 H 147/68 H Blood Pressure Mean 94 94 Pulse Ox 100 99 Oxygen Delivery Method Room Air Room Air Positive well nourished and well developed General Appearance ED: well developed and NAD HEENT Reports TM's clear and moist mucous membranes normocephalic and atraumatic; Negative for trauma or tenderness Tympanic Membrane ED: Yes TM's clear Eyes PERRL and EOMs intact bilaterally General Eye ED: Negative for pale conjunctiva or scleral icterus Neck no lymphadenopathy, supple and no JVD General: Negative for tenderness Chest Wall inspection of chest normal and palpation of chest normal Chest: Negative for tenderness Resp normal respiratory effort and clear to auscultation bilaterally Effort and Inspection: Negative for respiratory distress or pain with movement Auscultation: Negative for rhonchi, wheezes or diminished lung sounds Cardio regular rate, regular rhythm, S1 normal heart sound, S2 normal heart sound and no murmurs Rate: bradycardia Peripheral Pulses: pulses 2+ throughout GI normal to inspection, nondistended, normoactive bowel sounds, soft to palpation,non-tender, non-distended and no masses Back/Spine no CVA tenderness and no thoracic nor lumbar tenderness Extremity normal to inspection General Extremety ED: Negative for edema General Extremity: Negative for edema Neuro oriented x3, CN's II-XII intact bilaterally, no sensory deficits noted and gait normal Sensorium / Orientation: awake, alert, oriented to person, oriented to place andoriented to time Motor Exam: strength 5/5 throughout and strength abnormal Psych mental status grossly normal Skin no rashes or lesions noted and no wounds MDM MDM MDM Narrative Medical decision making narrative: Patient presents with bradycardia noted by visiting nurse. Currently relativelyasymptomatic. IV established. Patient placed on a radiographer cardiac catheterization. EKG obtained showed heart rate in the 70s however is noted that he has what looks like bigeminy at times it comes in a sinus rhythm. Initially I suspect that he may have high degree heart block. Discussed case with Dr. Durham who presented to the emergency department to evaluate patient. Given that he is symptomatic with the bradycardia recommended admission to ICU. CBC with differential and chemistries were unremarkable. Troponin was normal at 25. Case will be discussed with hospitalist to evaluate for admission Lab Data Attestation: I reviewed the patient's lab results. Labs: Laboratory Results - last 24 hr 08/23/23 10:45 WBC 6.9 RBC 4.00 L Hgb 12.6 L Hct 37.4 L MCV 93.5 MCH 31.5 MCHC 33.7 RDW Std Deviation 46.5 H RDW Coeff of Leeann 13.5 Plt Count 187 MPV 9.5 Immature Gran % (Auto) 0.400 Neut % (Auto) 62.6 Lymph % (Auto) 25.6 Glades % (Auto) 9.5 Eos % (Auto) 1.6 Baso % (Auto) 0.3 Absolute Neuts (auto) 4.3 Absolute Lymphs (auto) 1.76 Nucleated RBC % 0 Sodium 142 Potassium 3.8 Chloride 109 H Carbon Dioxide 28.0 Anion Gap 5 BUN 19 H Creatinine 1.52 H Estim Creat Clear Calc 44.37 Est GFR (MDRD) Af Amer 58 L Est GFR (MDRD) Non-Af 48 L BUN/Creatinine Ratio 12.5 Glucose 97 Calcium 9.3 Troponin I High Sens 25 EKG Initial EKG: Attestation: I personally reviewed and interpreted this EKG as follows: Comments: Sinus rhythm with frequent PVCs/bigeminy Repeat EKG obtained showed sinus bradycardia with rate in the 54 range with no acute ST segment changes Discharge Plan Dx/Rx/DC Orders Clinical Impression: Bradycardia, History of hypertension, History of coronary artery disease Disposition Disposition: Acute Care Hospital [facility] What to do if you have Problems For any increased pain, shortness of breath, bleeding, nausea or vomiting, chestpain, or any unexpected problems, contact your Primary Care Provider. Call [facility] ([phone]) or report to the closest Emergency Room. Call 911 if necessary. 08/23/232213 <Electronically signed by Teresa Roberts DO> Cosigner Signature (if applicable): CC: Dr. Afua Velez, ~ Signed [facility] Work Phone: 1(635) 898-331003-28-2024 History and physical note Author Stevan Max [facility] August 23, 2023 4:58pm Note Date/Time August 23, 2023 4:3 9pm [facility] Medical Records Department [address] [place] [address] H&P Exam - Hospitalist 08/23/23 1635 MR#: [id number] Acct: [id number] Name: SEBASTIEN OWENS Rep #:[id number] : 1950 73 From: Stevan aquino MD PCP: Dr. Afua Velez DO Status:ADM IN Location: ICU ICU05-1 HPI - General General Date of Admission: 08/23/23 HPI Narrative SEBASTIEN OWENS, is a 73 M who presents to the hospital with symptomatic bradycardia. He was being evaluated by his home nurse when she noticed that his heart rate was in the 30s and he was complaining about being dizzy and lightheaded. He appeared diaphoretic at that time so she called 911 and sent him to the ER. In the ER he was found to be bradycardic but the symptoms had resolved and he was not hypotensive however he had had a heart cath 2 weeks ago and had a cardiac arrest episode into -fib after his heart cath so cardiology was consulted and recommended admission for overnight observation in the ICU with the possibility of further procedures depending telemetry findings. He denies any chest pain and feels well otherwise though he does notice when his heart rate is dropping really low as he does get lightheaded and diaphoretic and his who is at bedside states that she sees him become very rosenbaum. EKG does appear to be a first-degree AV block with PVCs. [facility], [facility] Medical History Abnormal nuclear stress test Alcoholism Anemia Anxiety Atherosclerosis of coronary artery without angina pectoris Back pain BiPAP (biphasic positive airway pressure) dependence BPH (benign prostatic hyperplasia) CAD S/P percutaneous coronary angioplasty Cardiopulmonary arrest Chronic pain Coronary artery disease Dementia Depression Essential (primary) hypertension GI hemorrhage Gout History of stress test Hyperlipidemia Multifocal PVCs with pairing Myocardial infarct Non-smoker NSTEMI (non-ST elevated myocardial infarction) (04/13/18) Obesity Osteoarthritis of right knee Pancreatitis Pulmonary embolism Rheumatoid arthritis Sleep apnea Traumatic brain injury Unstable angina Ventricular tachycardia Home Medications allopurinol 100 mg tablet 200 mg PO QHS gout 11/07/20 [History Last Taken 08/22/23] aspirin 81 mg chewable tablet 81 mg PO DAILY thinner 11/07/20 [History Last Taken 08/23/23] finasteride 5 mg tablet 5 mg PO QHS urine retention 11/07/20 [History Last Taken 08/23/23] tamsulosin 0.4 mg capsule 0.4 mg PO QHS urinary retention 11/07/20 [History Last Taken 08/22/23] alprazolam 0.5 mg tablet (Xanax) 0.25 mg PO .COMPLEX anxiety 11/09/20 [History Last Taken 08/23/23] nitroglycerin 0.4 mg sublingual tablet 0.4 mg sublingual Q5M PRN Cardiac/Chest Pain #0 tabs 11/09/20 [Rx Last Taken Unknown] acetaminophen 500 mg tablet 1,000 mg (2 x 500 mg) PO Q6H PRN PRN Pain Score 1-3 #0 tabs 11/15/20 [Rx Last Taken 08/23/23] famotidine 40 mg tablet 40 mg PO BID ACID REFLUX 06/14/23 [History Last Taken 08/23/23] ondansetron 4 mg disintegrating tablet 4 mg PO Q8-12H PRN nausea 06/14/23 [History Last Taken 08/23/23] rosuvastatin 10 mg tablet 10 mg PO QHS CHOLESTEROL 06/14/23 [History Last Taken 08/22/23] amlodipine 5 mg tablet 5 mg PO QHS BLOOD PRESSURE 08/03/23 [History Last Taken 08/22/23] clopidogrel 75 mg tablet 75 mg PO DAILY CHOLESTEROL #30 tabs 08/08/23 [Rx Last Taken 08/23/23] cholecalciferol (vitamin D3) 1,250 mcg (50,000 unit) capsule 1,250 mcg PO WE SUPPLEMENT 08/21/23 [History Last Taken 08/22/23] metoprolol tartrate 25 mg tablet 25 mg PO BID BLOOD PRESSURE 08/23/23 [History Last Taken 08/23/23] pantoprazole 20 mg tablet,delayed release 40 mg PO BID HEARTBURN 08/23/23 [History Last Taken Unknown] Allergy/AdvReac Type Severity Reaction Status Date / Time tramadol Allergy Severe anxiety Verified 08/23/23 10:33 mold Allergy Unknown unknown Verified 08/23/23 10:33 isosorbide AdvReac Mild Headache Verified 08/23/23 10:33 Family History Mother CAD (coronary artery disease) Surgical History History of coronary artery stent placement (08/06/23) History of knee surgery History of repair of rotator cuff Hx of cholecystectomy Social History household members: spouse Smoking Status: Never smoker alcohol intake: former details: Sober since 2010. substance use type: does not use ROS Constitutional Constitutional: Denies chills, fatigue, fever(s) or malaise Eyes Eyes: Denies blurry vision ENT HEENT: Denies headache(s) or nasal discharge Cardiovascular Cardiovascular: Reports lightheadedness; Denies chest pain, dyspnea on exertion or syncope Respiratory/Chest Respiratory/Chest: Denies cough, shortness of breath at rest or shortness of breath with exertion Gastrointestinal Gastrointestinal: Denies constipation, diarrhea, nausea or vomiting Genitourinary Genitourinary: Denies dysuria Neurologic Neurologic: Denies focal weakness, numbness or tremor(s) Psychiatric Psychiatric: Denies anxiety or depression Vital Signs Vital Signs Vital Signs: 08/23/23 10:34 08/23/23 10:33 08/23/23 10:41 Temperature 97.1 F L Temperature Source Temporal Pulse Rate 33 L 59 L Respiratory Rate 12 23 H Respiratory Effort Normal Respiratory Depth Respiratory Pattern Blood Pressure 124/79 H 147/68 H Blood Pressure Mean 94 94 Blood Pressure Source Blood Pressure Position Blood Pressure Location Pulse Ox 100 99 Oxygen Delivery Method Room Air Room Air 08/23/23 11:33 08/23/23 12:43 08/23/23 12:44 Temperature 97.4 F L 98.1 F 98.2 F Temperature Source Temporal Oral Pulse Rate 52 L 49 L 49 L Respiratory Rate 16 17 16 Respiratory Effort Respiratory Depth Respiratory Pattern Blood Pressure 119/104 H 127/68 H 127/65 H Blood Pressure Mean 109 87 85 Blood Pressure Source Blood Pressure Position Blood Pressure Location Pulse Ox 98 100 100 Oxygen Delivery Method Nasal Cannula Nasal Cannula 08/23/23 13:33 08/23/23 13:08 Temperature 97.0 F L Temperature Source Temporal Pulse Rate 60 Respiratory Rate 14 Respiratory Effort Non-Labored Respiratory Depth Normal Respiratory Pattern Normal Blood Pressure 142/78 H Blood Pressure Mean 99 Blood Pressure Source Monitor Blood Pressure Position Semi-Fowlers Blood Pressure Location Right Arm Pulse Ox 99 Oxygen Delivery Method Room Air Room Air Weight Weight: 189 lb Body Mass Index (BMI) 30.4 Physical Exam Narrative General: Alert, Oriented x3, Cooperative, No apparent distress HEENT: Atraumatic, PERRLA, EOMI, Normocephalic Oral: Moist Mucosa Neck: Supple, No JVD Lungs: Diminished, Normal air movement, No rhonchi, No wheeze, No rales Cardiovascular: Bradycardic, Regular Rhythm, Normal S1, Normal S2, No murmurs Abdomen: Soft, Non Tender, Non-Distended, No Hepato-splenomegaly Extremities: No edema, Capillary Refill Less than 3 Seconds Skin: Ecchymosis on his right wrist from his previous heart cath Musculoskeletal: No Tenderness to Palpation of Joints or Extremities Neurological: No focal neurological deficits, Motor Exam 5/5 strength throughout, Sensory exam intact to light touch and pain Psych/Mental Status: Normal Affect, Appropriate Results Lab / Micro Data 08/23/23 10:45 08/23/23 10:45 Labs: Laboratory Results - last 24 hr 08/23/23 10:45: WBC 6.9, RBC 4.00 L, Hgb 12.6 L, Hct 37.4 L, MCV 93.5, MCH 31.5,MCHC 33.7, RDW Std Deviation 46.5 H, RDW Coeff of Leeann 13.5, Plt Count 187, MPV 9.5, Immature Gran % (Auto) 0.400, Neut % (Auto) 62.6, Lymph % (Auto) 25.6, Glades% (Auto) 9.5, Eos % (Auto) 1.6, Baso % (Auto) 0.3, Absolute Neuts (auto) 4.3, Absolute Lymphs (auto) 1.76, Nucleated RBC % 0, Sodium 142, Potassium 3.8, Chloride 109 H, Carbon Dioxide 28.0, Anion Gap 5, BUN 19 H, Creatinine 1.52 H, Estim Creat Clear Calc 44.37, Est GFR (MDRD) Af Amer 58 L, Est GFR (MDRD) Non-Af48 L, BUN/Creatinine Ratio 12.5, Glucose 97, Calcium 9.3, Troponin I High Sens 25 Imaging Radiology Impression Chest X-Ray 08/23/23 10:55 IMPRESSION: Improved aeration of the left upper lobe with residual mild increased markings suggestive of resorption of the previously inflammatory process in residual scarring. Electronically Signed: Haider Cleaning MD at 11:06 EDT , Assessment & Plan Assessment/Plan (1) Near syncope: (2) Bradycardia: PLAN: Plan 1. Near syncope with bradycardia/CAD status post stent/HTN/HLD/status post resuscitation from V-fib arrest ? Appreciate cardiology's assistance ? Will discontinue his beta-shreya ? Will monitor him overnight on telemetry ? He may need a Holter monitor versus implantable loop recorder ? Will resume his other home blood pressure medications and continue with his aspirin and Plavix ? Will monitor make adjustments as necessary ? Continue with Crestor 2. GERD ? Stable?continue with PPI 3. BPH ? Stable ? Continue with Flomax 4. Anxiety ? Stable ? Continue with Xanax 5. Gout ? Stable ? Continue with allopurinol DVT: SCDs 75 minutes was spent on direct patient care, including documentation as well as chart review and collaboration with colleagues Charges/Coding Visit Charges Inpatient E&M: 94978 Init Hosp L3 08/23/23 1658 <Electronically signed by Stevan Max MD> Cosigner Signature (if applicable): CC: Dr. Afua Velez DO; Dr. Stevan Max MD~ Signed [facility] Work Phone: 1(709) 307-551503-28-2024 Consult note [facility] August 23, 2023 3:22pm Note Date/Time August 23, 2023 3:0 8pm [facility] Medical Records Department [address] [place] [id number] Consultation - Cardiology 08/23/23 1506 MR#: [id number] Acct: [id number] Name: SEBASTIEN OWENS Rep #:[id number] : 1950 73 From: Darnell Booth MD PCP: Dr. Afua Velez DO Status:ADM IN Location: ICU ICU-1 Assessment & Plan Assessment/Plan (1) History of coronary artery disease: (2) STEMI (ST elevation myocardial infarction): (3) Chronic kidney disease (CKD), stage III (moderate): QUALIFIERS: Chronic kidney disease stage 3 subtype: unspecified whether 3a or 3b Qualified Code(s): N18.30 - Chronic kidney disease, stage 3 unspecified (4) History of coronary artery stent placement: (5) Near syncope: PLAN: Plan 73-year-old patient, recently discharged from the hospital with a PCI and stent to RCA in-stent restenosis and has been followed at the cardiology outpatient In August 21, 2023 Brought into the ER at [facility] with his I see had bradycardia at home checked by the visiting nurse with a heart rate ofaround 30 According to the history he was not feeling well for the last 2 days according to the patient had recently drug-eluting stent to the mid RCA in-stent restenosis this was in August 18 2 weeks ago. And has been on treatment with beta-shreya metoprolol dose of 50 mg twice dailyin addition to aspirin and Plavix. He does not have any active chest pain. Patient has extensive cardiac history he had non-STEMI with CAD and PCI in 2018 the ejection fraction has been preserved She had a PCI of the left circumflex using drug-eluting stent resolute integrity. Other medical problem include history of hypertension Hyperlipidemia. And also had history of previous stroke. Cardiac care plan recommendations; 1. Reviewed the EKG which showed sinus bradycardia with first degree AV block and PVCs Will discontinue the beta-shreya. Will keep for observation in ICU He been stable hemodynamically does not require temporary pacer. If he remained stable then we will plan for event monitor versus loop recorder implant and a consideration of monitor with medical therapy Will continue to monitor and follow-up in ICU and will DC the beta-shreya. Darnell Booth MD,[facility] HPI Consult Data Date of Consult: 08/23/23 HPI Narrative Reason for Consultation: Near syncope/bradycardia HPI Narrative: SEBASTIEN OWENS, is a 73 M who presents [facility], [facility] Medical History Abnormal nuclear stress test Alcoholism Anemia Anxiety Atherosclerosis of coronary artery without angina pectoris Back pain BiPAP (biphasic positive airway pressure) dependence BPH (benign prostatic hyperplasia) CAD S/P percutaneous coronary angioplasty Cardiopulmonary arrest Chronic pain Coronary artery disease Dementia Depression Essential (primary) hypertension GI hemorrhage Gout History of stress test Hyperlipidemia Multifocal PVCs with pairing Myocardial infarct Non-smoker NSTEMI (non-ST elevated myocardial infarction) (04/13/18) Obesity Osteoarthritis of right knee Pancreatitis Pulmonary embolism Rheumatoid arthritis Sleep apnea Traumatic brain injury Unstable angina Ventricular tachycardia Home Medications allopurinol 100 mg tablet 200 mg PO QHS gout 11/07/20 [History Last Taken 08/22/23] aspirin 81 mg chewable tablet 81 mg PO DAILY thinner 11/07/20 [History Last Taken 08/23/23] finasteride 5 mg tablet 5 mg PO QHS urine retention 11/07/20 [History Last Taken 08/23/23] tamsulosin 0.4 mg capsule 0.4 mg PO QHS urinary retention 11/07/20 [History Last Taken 08/22/23] alprazolam 0.5 mg tablet (Xanax) 0.25 mg PO .COMPLEX anxiety 11/09/20 [History Last Taken 08/23/23] nitroglycerin 0.4 mg sublingual tablet 0.4 mg sublingual Q5M PRN Cardiac/Chest Pain #0 tabs 11/09/20 [Rx Last Taken Unknown] acetaminophen 500 mg tablet 1,000 mg (2 x 500 mg) PO Q6H PRN PRN Pain Score 1-3 #0 tabs 11/15/20 [Rx Last Taken 08/23/23] famotidine 40 mg tablet 40 mg PO BID ACID REFLUX 06/14/23 [History Last Taken 08/23/23] ondansetron 4 mg disintegrating tablet 4 mg PO Q8-12H PRN nausea 06/14/23 [History Last Taken 08/23/23] rosuvastatin 10 mg tablet 10 mg PO QHS CHOLESTEROL 06/14/23 [History Last Taken 08/22/23] amlodipine 5 mg tablet 5 mg PO QHS BLOOD PRESSURE 08/03/23 [History Last Taken 08/22/23] clopidogrel 75 mg tablet 75 mg PO DAILY CHOLESTEROL #30 tabs 08/08/23 [Rx Last Taken 08/23/23] cholecalciferol (vitamin D3) 1,250 mcg (50,000 unit) capsule 1,250 mcg PO WE SUPPLEMENT 08/21/23 [History Last Taken 08/22/23] metoprolol tartrate 25 mg tablet 25 mg PO BID BLOOD PRESSURE 08/23/23 [History Last Taken 08/23/23] pantoprazole 20 mg tablet,delayed release 40 mg PO BID HEARTBURN 08/23/23 [History Last Taken Unknown] Allergy/AdvReac Type Severity Reaction Status Date / Time tramadol Allergy Severe anxiety Verified 08/23/23 10:33 mold Allergy Unknown unknown Verified 08/23/23 10:33 isosorbide AdvReac Mild Headache Verified 08/23/23 10:33 Family History Mother CAD (coronary artery disease) Surgical History History of coronary artery stent placement (08/06/23) History of knee surgery History of repair of rotator cuff Hx of cholecystectomy Social History household members: spouse Smoking Status: Never smoker alcohol intake: former details: Sober since 2010. substance use type: does not use Physical Exam Cardio Cardio Narrative: I saw this patient in the ER, at bedside at time of evaluation He protean as he had a slow heart rate at home of around 30% checked by visitingnurse He had lightheadedness and dizziness according to the he did not have any syncopal episode He is alert oriented to the time of evaluation cooperative to exam Cardiac examination cardiac rhythm is sinus rhythm with sinus bradycardia Frequent PVCs were noted Cardiovascular examination; S1-S2 is regular, no systolic or diastolic Chest exam is clear to auscultation bilateral. Risk Stratification Risk Stratification Applicable: No Objective Data Vital Signs: Vital Signs Temp Pulse Resp BP Pulse Ox O2 Del Method 98.2 F 49 L 16 127/65 H 100 Room Air 08/23/23 12:44 08/23/23 12:44 08/23/23 12:44 08/23/23 12:44 08/23/23 12:44 08/23/23 13:33 Oxygen Delivery Method Room Air Weight: 189 lb Body Mass Index (BMI) 30.4 Lab / Micro Data 08/23/23 10:45 08/23/23 10:45 Labs: Laboratory Results - last 24 hr 08/23/23 10:45: WBC 6.9, RBC 4.00 L, Hgb 12.6 L, Hct 37.4 L, MCV 93.5, MCH 31.5,MCHC 33.7, RDW Std Deviation 46.5 H, RDW Coeff of Leeann 13.5, Plt Count 187, MPV 9.5, Immature Gran % (Auto) 0.400, Neut % (Auto) 62.6, Lymph % (Auto) 25.6, Glades% (Auto) 9.5, Eos % (Auto) 1.6, Baso % (Auto) 0.3, Absolute Neuts (auto) 4.3, Absolute Lymphs (auto) 1.76, Nucleated RBC % 0, Sodium 142, Potassium 3.8, Chloride 109 H, Carbon Dioxide 28.0, Anion Gap 5, BUN 19 H, Creatinine 1.52 H, Estim Creat Clear Calc 44.37, Est GFR (MDRD) Af Amer 58 L, Est GFR (MDRD) Non-Af48 L, BUN/Creatinine Ratio 12.5, Glucose 97, Calcium 9.3, Troponin I High Sens 25 Cardiology Labs/Tests 08/23/23 10:45: WBC 6.9, RBC 4.00 L, Hgb 12.6 L, Hct 37.4 L, MCV 93.5, MCH 31.5,MCHC 33.7, Plt Count 187, MPV 9.5, Immature Gran % (Auto) 0.400, Neut % (Auto) 62.6, Lymph % (Auto) 25.6, Glades % (Auto) 9.5, Eos % (Auto) 1.6, Baso % (Auto) 0.3, Absolute Neuts (auto) 4.3, Nucleated RBC % 0, Sodium 142, Potassium 3.8, Chloride 109 H, Carbon Dioxide 28.0, Anion Gap 5, BUN 19 H, Creatinine 1.52 H, Est GFR (MDRD) Af Amer 58 L, Est GFR (MDRD) Non-Af 48 L, BUN/Creatinine Ratio 12.5, Glucose 97, Calcium 9.3 Rhythm: EKG: ECHO: Stress Test: Cardiac Cath: PCI: CT Surgery: Holter monitor: EPS: PPM: CXR: Chest CT Scan: Radiography Diagnostic Testing: Radiology Impression Chest X-Ray 08/23/23 10:55 IMPRESSION: Improved aeration of the left upper lobe with residual mild increased markings suggestive of resorption of the previously inflammatory process in residual scarring. Electronically Signed: Haider Cleaning MD at 11:06 EDT , 08/23/23 3337 <Electronically signed by Darnell Booth MD> Cosigner Signature (if applicable): CC: Dr. Darnell Booth MD; Dr. Afua Velez, DO~ Signed [facility] Work Phone: [phone]) 890-604703-28-2024 Telephone encounter Note* Telephone Encounter - Hellen Jones - 08/23/2023 8:42 AM EDT Images from the original note were not included. Patient aware Hellen Jones [employer] Stanley Sandoval MD You 15 hours ago (5:30 PM) Schedule and make sure to continue those medications no matter what others say [facility]03-26-2024 Telephone encounter Note* Telephone Encounter - Hellen Jones - 08/21/2023 2:48 PM EDT Clearance forms receieved. Patient cleared Dr. Diallo instructions state Cradiac stent 08/06/2023 - needs to CONTINUE Aspirin and Plavix Dr Sandoval, Please advise if patient is okay to proceed Hellen Jones [employer] [facility]03-21-2024 Telephone encounter Note* Telephone Encounter - Hellen Jones - 08/16/2023 8:09 AM EDT Clearance forms to be faxed [facility]03-21-2024 Telephone encounter Note* Telephone Encounter - Hellen Jones - 08/16/2023 8:08 AM EDT Images from the original note were not included. Stanley Sandoval MD You 12 hours ago (7:25 PM) See if cardiology will clear and if so can do, otherwise, will postpone [facility]03-20-2024 Telephone encounter Note* Telephone Encounter - Hellen Jones - 08/15/2023 10:42 AM EDT Patients called in to inform office Sebastien had 2 heart stents placed last week at [facility] and has a follow up with them next Sunday08/21/2023. Patient is currently scheduled for diagnostic colonoscopy and EGD in [place] with Dr. Sandoval on 09/03/2023 Dr. Sandoval please advise if patient should be postponed or if we can proceed with plan of care forprocedure? Should we send cardiac clearance forms upon follow up with [facility] next Sunday? Hellen Jones [employer] [facility]03-13-2024 Discharge summary Author Melly Leong [facility] August 08, 2023 10:48am Note Date/Time August 08, 2023 10: 36am [facility] Medical Records Department [address] [place] [address] Discharge Summary 08/08/23 1035 MR#: [id number] Acct: [id number] Name: SEBASTIEN OWENS Rep #:[id number] : 1950 73 From: Melly Leong DO PCP: Dr. Afua Velez DO Status:ADM IN Location: ICU ICU02-1 Providers Date of Admission: 08/03/23 Date of Discharge: 08/08/23 Primary Care Physician: Dr. Afua Velez DO Consultations 08/03/23 20:40 Consult: Cardiology Routine Consulting Provider: Saleem Rodriguez Reason for Consult: unstable angina EMERGENT Consult: No MD Notified: Yes Date Notified: 08/03/23 Time Notified: 18:41 Method of Notification: Text Reason For Visit: UNSTABLE ANGINA Diagnosis Discharge Diagnosis (1) Ventricular tachycardia: Status: Acute Code(s): I47.20 - Ventricular tachycardia, unspecified (2) CAD S/P percutaneous coronary angioplasty: Status: Acute Code(s): I25.10 - Atherosclerotic heart disease of [place] coronary artery without angina pectoris; Z98.61 - Coronary angioplasty status Medications at Discharge Home Medications allopurinol 100 mg tablet 200 mg PO QHS gout 11/07/20 aspirin 81 mg chewable tablet 81 mg PO DAILY thinner 11/07/20 cholecalciferol (vitamin D3) 125 mcg (5,000 unit) tablet 50,000 unit PO WE supplement 11/07/20 colchicine 0.6 mg tablet (Colcrys) 0.6 mg PO PRN gout 11/07/20 finasteride 5 mg tablet 5 mg PO QHS urine retention 11/07/20 tamsulosin 0.4 mg capsule 0.4 mg PO QHS urinary retention 11/07/20 alprazolam 0.5 mg tablet (Xanax) 0.25 mg PO .COMPLEX anxiety 11/09/20 nitroglycerin 0.4 mg sublingual tablet 0.4 mg sublingual Q5M PRN Cardiac/Chest Pain #0 tabs 11/09/20 acetaminophen 500 mg tablet 1,000 mg (2 x 500 mg) PO Q6H PRN PRN Pain Score 1-3 #0 tabs 11/15/20 pantoprazole 40 mg tablet,delayed release 40 mg PO BID indigestion 01/11/23 famotidine 40 mg tablet 40 mg PO BID 06/14/23 ondansetron 4 mg disintegrating tablet 4 mg PO Q8-12H PRN nausea 06/14/23 rosuvastatin 10 mg tablet 10 mg PO QHS 06/14/23 amlodipine 5 mg tablet 5 mg PO QHS 08/03/23 oxybutynin chloride 10 mg tablet,extended release 24 hr 10 mg PO QHS 08/03/23 clopidogrel 75 mg tablet 75 mg PO DAILY #30 tabs 08/08/23 metoprolol tartrate 50 mg tablet 50 mg PO BID #60 tabs 08/08/23 Hospital Course Operations None Procedures Cardiac catheterization, CPR performed, EKG and - (Chest x-ray) Summary of Care Provided Minutes Spent on Discharge: 38 Hospital Course: Mr. Owens is a 73-year-old white male who presented to the emergency department [facility] on 08/03/2023 with a chief complaint of chest pain. 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 He denied any lightheadedness or dizziness but did admit to headache on presentation. He had no shortness of breath, nausea, or vomiting. He had a stress test that was doneon 07/26/2023 which showed mild to moderate yvette-infarct ischemia and no acute ischemic changes. His vital signs on presentation were unremarkable and he was satting 93% on 2 L nasal cannula. His CBC was overall unremarkable and his BMP was overall unremarkable. His initial and delta troponin were both unremarkable. EKG showed PVCs but no acute ST-T wave changes and he was admitted for unstable angina. Cardiology was consulted and recommended cardiac catheterization during this admission. Adjustments were made in his antihypertensive regimen. He was taken to the [facility] on 08/06/2023 at which time he was found to have high-grade right coronary artery lesion with in-stent stenosis and a patent stent in the LAD with a circumflex having left to right collaterals. He was referred for immediate PCI and 2 stents were placed in the RCA. Of note, a small ostial vessel was obstructed while reopening the right coronary artery due to his stenosis. Procedure was completed and he was transferred to the ICU. Unfortunately, he developed unstable ventricular tachycardia that d deteriorated into ventricular fibrillation and a CODE BLUE was called. He got about 2 minutes of CPR and was defibrillated with return to sinus tachycardia and then eventually sinus rhythm. Cardiology was at the bedside and instituted into arrhythmia with amiodarone. He received 1 bag of amiodarone and then was transitioned to oral metoprolol. He was started on Plavix 75 mg daily and maintained on his home rosuvastatin and aspirin. He did suffer from a right forearm hematoma related to his cardiac catheterization as he was still just off the Integrilin when the CODE BLUE was called. He has significant ecchymosis and swelling in his right hand however neurovascular checks have been stable and his hand is functioning without any issues. We did discuss that the bruising would take time to heal and he voiced understanding asdid his . He was monitored on Telemetry and had no further arrhythmias for 36 hours after his above event. Cardiology evaluated him and felt he was stablefor discharge. Patient was overall feeling quite well. He was seen by physicaland Occupational Therapy and they did recommend some ongoing home health at discharge which was established for him prior to discharge. He was discharged in stable condition on 08/08/2023. Prescriptions for his increased metoprolol dose and Plavix were written for and we have a follow-up with cardiology on 08/16/2023. I have also asked him to follow-up with his primary care physician within the next 1 to 2 weeks. Discharge diagnoses: Unstable angina-resolved CPA secondary to ventricular tachycardia/ventricular fibrillation Right arm hematoma Leukocytosis-resolved CKD stage II Acute bronchitis-resolved and antibiotic course completed CAD HTN HPL Gout GERD BPH with retention Vitamin D deficiency Obesity History of TBI Physical Exam Const alert, oriented x3, no apparent distress, no limitations and well nourished; Negative for average body habitus Constitutional Narrative: Obese, older, white male, sitting up in chair at the bedside, appears comfortable, nursing is at the bedside, nontoxic-appearing General Appearance: cooperative, comfortable, well kempt and well developed Orientation / Consciousness: awake, oriented to person, oriented to place and oriented to time Exam Limitations: no limitations Nutritional Appearance: obese HEENT normocephalic, head/scalp atraumatic and moist oral mucous membranes HEENT Narrative: Mild to moderate hearing loss, Mallampati is 2, no thrush Eyes PERRL and EOMs intact bilaterally Eyes Narrative: No scleral icterus Neck no lymphadenopathy and supple Neck Narrative: Trachea midline, no thyroid enlargement Resp normal respiratory effort, normal air movement, no retractions, no use of accessory muscles and clear to auscultation bilaterally Auscultation: Negative for rales, rhonchi or wheezes Cardio regular rate, regular rhythm, S1 normal heart sound, S2 normal heart sound, no murmurs, no rub, no gallops and no clicks GI normal to inspection, nondistended, normoactive bowel sounds, soft to palpation and non-tender Extremity normal capillary refill, no clubbing, cyanosis or edema and no calf tenderness Extremity Narrative: Right arm still with a bit of swelling but overall much softer and hand is completely functional without any tingling or numbness General Extremity: no tenderness to palpation of joints or extremities Skin No no rashes or lesions noted, no wounds, skin turgor normal and no jaundice Skin Narrative: Significant right arm ecchymosis General Skin Exam: no breakdown and turgor normal Neuro oriented x3, CN's II-XII intact bilaterally, moves all extremities, no focal motor deficits and no sensory deficits noted Speech: speech normal Psych thought process normal, cooperative and affect normal Psych Narrative: Eye contact is good, patient interacts appropriately Appearance: appropriate Weight / BMI Weight Weight: 95.5 kg Body Mass Index (BMI) 34.0 ABG / Lab / Microbiology Data 08/08/23 04:45 08/08/23 04:45 Laboratory: Laboratory Results - last 24 hr 08/08/23 04:45: WBC 11.3 H, RBC 3.89 L, Hgb 12.4 L, Hct 36.5 L, MCV 93.8, MCH 31.9, MCHC 34.0, RDW Std Deviation 45.6 H, RDW Coeff of Leeann 13.4, Plt Count 169, MPV 10.1, Sodium 139, Potassium 3.9, Chloride 107, Carbon Dioxide 28.0, Anion Gap 4 L, BUN 25 H, Creatinine 1.51 H, Estim Creat Clear Calc 45.09, Est GFR (MDRD) Af Amer 59 L, Est GFR (MDRD) Non-Af 48 L, BUN/Creatinine Ratio 16.6, Glucose 99, Calcium 9.5, Total Bilirubin 0.90, AST 108 H, ALT 35, Alkaline Phosphatase 57, Total Protein 7.0, Albumin 3.8, Globulin 3.2, Albumin/Globulin Ratio 1.2 D/C Instructions Discharge Diet: Low fat / Low cholesterol Discharge Activity: - (Do not lift anything greater than 5 pounds with the righthand for the next 3 to 5 days) Meaningful Use Info Meaningful Use Diagnoses (Choose all that apply): None applicable Discharge Plan Admission Admit Date/Time: 08/03/23 18:39 Primary Reason for Your Visit: Chest pain Attending Provider: Melly Leong Primary Care Provider: Afua Velez Consulting Providers: Saleem Rodriguez; Mechelle Marquez; Fabio Tovar Discharge Orders/Prescriptions Prescriptions: New clopidogrel 75 mg Tablet 75 mg PO DAILY Qty: 30 11RF metoprolol tartrate 50 mg Tablet 50 mg PO BID Qty: 60 0RF Continued ondansetron 4 mg tablet,disintegrating 4 mg PO Q8-12H PRN (Reason: nausea) famotidine 40 mg tablet 40 mg PO BID rosuvastatin 10 mg tablet 10 mg PO QHS allopurinol 100 mg Tablet 200 mg PO QHS tamsulosin 0.4 mg Capsule 0.4 mg PO QHS aspirin 81 mg Tablet,Chewable 81 mg PO DAILY colchicine [Colcrys] 0.6 mg Tablet 0.6 mg PO PRN finasteride 5 mg Tablet 5 mg PO QHS cholecalciferol (vitamin D3) 125 mcg (5,000 unit) Tablet 50,000 unit PO WE nitroglycerin 0.4 mg Tablet, Sublingual 0.4 mg sublingual Q5M PRN (Reason: Cardiac/Chest Pain) Qty: 0 0RF alprazolam [Xanax] 0.5 mg tablet 0.25 mg PO .COMPLEX Rx Instructions: 0.25 mg orally morning and afternoon; 0.5 mg orally qhs acetaminophen 500 mg Tablet 1,000 mg PO Q6H PRN PRN (Reason: Pain Score 1-3) Qty: 0 0RF pantoprazole 40 mg tablet,delayed release (DR/EC) 40 mg PO BID oxybutynin chloride 10 mg tablet extended release 24hr 10 mg PO QHS Patient Comments: TAKE 1 TABLET BY MOUTH ONCE DAILY amlodipine 5 mg tablet 5 mg PO QHS Discontinued levofloxacin 500 mg tablet 500 mg PO Q24H Patient Comments: First dose taken this am 08/02 metoprolol tartrate 25 mg tablet 25 mg PO BID Qty: 180 3RF Referrals / Follow Up: Afua Velez DO [Primary Care Provider] - Within 2 Weeks Sebastian Diallo NP, MARY KAY-C [Med Staff - Adv Practice Prof] - 08/16/23 10:00 am Disposition Disposition (needs filled in before D/C Order can be placed): Home Health Service Charges/Coding Visit Charges Inpatient E&M: 90744 Disch Hosp >30min 08/08/23 1048 <Electronically signed by Melly Leong DO> Cosigner Signature (if applicable): CC: JAYLAN Diallo; Dr. Melly Leong DO; Dr. Afua Velez DO~ Signed [facility] Work Phone: [phone]) 140-590903-13-2024 Progress note Author Carlos Rojas [facility] August 08, 2023 9:20am Note Date/Time August 08, 2023 9:2 0am [facility] Medical Records Department [address] [place] [address] Progress Note - Cardiology 08/08/23917 MR#: [id number] Acct: [id number] Name: SEBASTIEN OWENS Rep #:[id number] : 1950 73 From: Carlos Rojas MD PCP: Dr. Afua Velez DO Status:ADM IN Location: ICU ICU02-1 Subjective Subjective Patient seen and evaluated. Appears to be doing well today. No complaints. Noarrhythmias. Has been off amiodarone Objective Data Vital Signs: Vital Signs Temp Pulse Resp BP Pulse Ox O2 Del Method O2 Flow Rate 97.9 F 85 15 136/88 H 95 Room Air 2 08/08/23 08:00 08/08/23 08:00 08/08/23 08:00 08/08/23 08:00 08/08/23 08:00 08/08/23 08:00 08/07/23 10:00 Oxygen Flow Rate (L/min) 2 Oxygen Delivery Method Room Air Weight: 210 lb 8.663 oz Body Mass Index (BMI) 34.0 Intake & Output: Intake and Output for Last 24 Hours 08/06/23 08/07/23 08/08/23 23:59 23:59 23:59 Intake Total 1518.57 / 1518.57 778.73 / 978.73 200 / 200 Output Total 1600 / 1600 200 / 200 Balance -81.43 / -81.43 578.73 / 778.73 200 / 200 Lab / Micro Data 08/08/23 04:45 08/08/23 04:45 Labs: Laboratory Results - last 24 hr 08/08/23 04:45: WBC 11.3 H, RBC 3.89 L, Hgb 12.4 L, Hct 36.5 L, MCV 93.8, MCH 31.9, MCHC 34.0, RDW Std Deviation 45.6 H, RDW Coeff of Leeann 13.4, Plt Count 169,MPV 10.1, Sodium 139, Potassium 3.9, Chloride 107, Carbon Dioxide 28.0, Anion Gap 4 L, BUN 25 H, Creatinine 1.51 H, Estim Creat Clear Calc 45.09, Est GFR (MDRD) Af Amer 59 L, Est GFR (MDRD) Non-Af 48 L, BUN/Creatinine Ratio 16.6, Glucose 99, Calcium 9.5, Total Bilirubin 0.90, AST 108 H, ALT 35, Alkaline Phosphatase 57, Total Protein 7.0, Albumin 3.8, Globulin 3.2, Albumin/Globulin Ratio 1.2 Rhythm Strip Rhythm Strip: Sinus Rhythm Rate: 68 Ectopy: PVC(s) (Some in a bigeminal pattern.) Cardiology Labs/Tests 08/08/23 04:45: WBC 11.3 H, RBC 3.89 L, Hgb 12.4 L, Hct 36.5 L, MCV 93.8, MCH 31.9, MCHC 34.0, Plt Count 169, MPV 10.1, Sodium 139, Potassium 3.9, Chloride 107, Carbon Dioxide 28.0, Anion Gap 4 L, BUN 25 H, Creatinine 1.51 H, Est GFR (MDRD) Af Amer 59 L, Est GFR (MDRD) Non-Af 48 L, BUN/Creatinine Ratio 16.6, Glucose 99, Calcium 9.5, Total Bilirubin 0.90 Rhythm: EKG: ECHO: Stress Test: Cardiac Cath: PCI: CT Surgery: Holter monitor: EPS: PPM: CXR: Chest CT Scan: Physical Exam Const alert, oriented x3 and no apparent distress General Appearance: cooperative HEENT hearing grossly normal bilaterally Head and Scalp: atraumatic Eyes EOMs intact bilaterally Neck General: normal visual inspection Chest inspection of chest normal and palpation of chest normal Resp normal respiratory effort Auscultation: clear to auscultation bilaterally Cardio regular rate, regular rhythm, S1 normal heart sound and S2 normal heart sound Jugular Venous Distention: JVD GI normal to inspection, nondistended, normoactive bowel sounds Extremity normal capillary refill and no pedal edema Peripheral Pulses: Yes pulses 2+ throughout and femoral pulses present Skin no rashes or lesions noted Neuro oriented x3 and CN's II-XII intact bilaterally Psych Appearance: grossly normal and appropriate Assessment & Plan Assessment/Plan (1) Ventricular tachycardia: PLAN: Patient had developed ventricular tachycardia which was probably ischemic in etiology from either the jailing of the right ventricular marginal branch allslow distal flow. Has now been off IV amiodarone. Doing better on p.o. Lopressor. No VT in the last 36 hours. Patient can be discharged for outpatient follow-up. Above discussed with patient, nursing, and hospitalist. Follow-up with the heart group. (2) CAD S/P percutaneous coronary angioplasty: PLAN: The patient should stay on his dual antiplatelet therapy uninterrupted for1 year. Secondary risk factors are being managed as well. He will continue on the rosuvastatin and beta-shreya therapy. The patient be ambulated in the halls today and as long as he pains good vital signs and no significant ectopy he should be able to be discharged to home today 08/08/23 0920 <Electronically signed by Carlos Rojas MD> Cosigner Signature (if applicable): CC: ~ Signed [facility] Work Phone: 1(365) 773-265103-12-2024 Progress note Author Melly Leong [facility] August 07, 2023 3:35pm Note Date/Time August 07, 2023 3:2 5pm [facility] Medical Records Department [address] [place] [address] Progress Note - Hospitalist 08/07/23 1523 MR#: [id number] Acct: [id number] Name: SEBASTIEN OWENS Rep #:[id number] : 1950 73 From: Melly Leong DO PCP: Dr. Afua Velez, Status:ADM IN Location: ICU ICU02-1 Reason for Visit Reason for Visit: Chest pain Subjective Subjective Patient with polymorphic VT that deteriorated into ventricular fibrillation as noted previously. Overnight he had some intermittent bigeminy but this is resolved by this morning and has had no further events. Right forearm is feeling better. He denies any tingling or numbness. Movement and hand is normal and he states he feels like his hand is less swollen and red. Currently is feeling well and would like to get out of bed. Will get his Mohr out and get him moving a little bit to see how he tolerates it. Objective Data Objective Data Vital Signs: Vital Signs Temp Pulse Resp BP Pulse Ox O2 Del Method O2 Flow Rate 97.9 F 73 16 113/86 H 94 Room Air 2 08/07/23 12:00 08/07/23 14:00 08/07/23 14:00 08/07/23 14:00 08/07/23 14:00 08/07/23 14:00 08/07/23 10:00 Oxygen Flow Rate (L/min) 2 Oxygen Delivery Method Room Air Weight: 87.2 kg Body Mass Index (BMI) 31.0 Intake & Output: Intake and Output for Last 24 Hours 08/05/23 08/06/23 08/07/23 23:59 23:59 23:59 Intake Total 1518.57 / 1518.57 198.73 / 198.73 Output Total 1600 / 1600 200 / 200 Balance -81.43 / -81.43 -1.27 / -1.27 Lab / Micro Data 08/07/23 03:15 08/07/23 03:15 Labs: Laboratory Results - last 24 hr 08/06/23 18:00: WBC 18.3 H, RBC 4.53 L, Hgb 14.0, Hct 41.4, MCV 91.4, MCH 30.9, MCHC 33.8, RDW Std Deviation 43.5, RDW Coeff of Leeann 13.2, Plt Count 182, MPV 9.7 08/07/23 03:15: WBC 17.2 H, RBC 4.25 L, Hgb 13.0, Hct 38.8 L, MCV 91.3, MCH 30.6, MCHC 33.5, RDW Std Deviation 43.9, RDW Coeff of Leeann 13.3, Plt Count 186, MPV 9.8, Immature Gran % (Auto) 0.900, Neut % (Auto) 78.3 H, Lymph % (Auto) 10.0L, Glades % (Auto) 10.4 H, Eos % (Auto) 0.1, Baso % (Auto) 0.3, Absolute Neuts (auto) 13.5 H, Absolute Lymphs (auto) 1.71, Nucleated RBC % 0, Differential Comment SCANNED, Diff Path Review September, Sodium 139, Potassium 4.2, Chloride 107, Carbon Dioxide 23.0, Anion Gap 9, BUN 19 H, Creatinine 1.40 H, Estim Creat Clear Calc 48.63, Est GFR (MDRD) Af Amer 64, Est GFR (MDRD) Non-Af 53 L, BUN/Creatinine Ratio 13.6, Glucose 127 H, Calcium 9.4, Phosphorus 4.7, Magnesium1.9, Total Bilirubin 0.80, AST 58 H, ALT 25, Alkaline Phosphatase 59, Total Protein 6.9, Albumin 3.7, Globulin 3.2, Albumin/Globulin Ratio 1.2, TSH 0.65 Rhythm Strip Rhythm Strip: Sinus Rhythm Rate: 68 Ectopy: PVC(s) (Some in a bigeminal pattern.) Physical Exam Const alert, oriented x3, no apparent distress and well nourished Constitutional Narrative: Obese, older, white male, sitting up in bed watching television, appears comfortable, nursing is at the bedside, nontoxic-appearing General Appearance: cooperative and well developed HEENT normocephalic, head/scalp atraumatic and moist oral mucous membranes Head and Scalp: normocephalic Resp normal respiratory effort, no retractions, no use of accessory muscles and clearto auscultation bilaterally Auscultation: Negative for rales, rhonchi or wheezes Cardio regular rate, regular rhythm, S1 normal heart sound, S2 normal heart sound, no murmurs, no rub, no gallops and no clicks Cardio Narrative: No ectopy GI normal to inspection, nondistended, normoactive bowel sounds, soft to palpation and non-tender Extremity no clubbing, cyanosis or edema Extremity Narrative: Right arm still with some swelling however overall much better than yesterday, sensation in hand is intact and patient can fully open and close hand Skin Skin Narrative: Significant right arm ecchymosis General Skin Exam: no breakdown and turgor normal Neuro oriented x3, moves all extremities and no focal motor deficits Speech: speech normal Psych thought process normal, cooperative and affect normal Psych Narrative: Eye contact is good, patient interacts appropriately Appearance: appropriate Assessment & Plan Assessment/Plan (1) Abnormal nuclear stress test: (2) CAD S/P percutaneous coronary angioplasty: (3) Chest pain: QUALIFIERS: Chest pain type: unspecified Qualified Code(s): R07.9- Chest pain, unspecified (4) Cardiopulmonary arrest: (5) Ventricular tachycardia: PLAN: Plan Unstable angina -2 drug-eluting stents placed in stenotic area of RCA -Continue aspirin -Continue Plavix - isosorbide mononitrate was discontinued by cardiology -Continue metoprolol -Continue atorvastatin -Cardiology following-appreciate input CPA with ventricular tachycardia -2 minutes of CPR with ROSC -Discussed with cardiology and they felt that this was likely ischemic ventricular arrhythmia related to jailing of the acute marginal branch of the right coronary artery with a stenting procedure -Amiodarone was discontinued today by cardiology once loading dose was complete -Placed on metoprolol 50 mg p.o. twice daily -Cardiology following-appreciate input -No further events since initiating amiodarone -TSH is within normal limits Right arm hematoma status postcardiac catheterization -Related to cardiopulmonary arrest and resuscitation -Remains with no current signs of compartment syndrome and overall is improving -Continue to watch neurovascular status and right arm and hand -Every 4 hour assessment ordered and will discontinue tomorrow as long as he is stable Leukocytosis -Suspect related to yesterday's events -No signs of infection -Will continue to monitor with repeat CBC tomorrow CKD stage II -Baseline serum creatinine appears to run between 1.2 and 1.3 -Current serum creatinine is slightly elevated at 1.40 likely related to arrest yesterday -Continue to monitor Acute bronchitis -PCP recently placed patient on Levaquin -Complete antibiotic course CAD/HTN/HPL -Continue aspirin, Plavix, beta-shreya, statin -Continue home amlodipine -Cardiology following-appreciate input -See above Gout -Continue home allopurinol -Continue home colchicine GERD -Continue home famotidine -Continue home Protonix BPH with retention -Continue Flomax -Continue Proscar -Mohr in place and will remove tomorrow if medically stable Vitamin D deficiency -Continue home vitamin D supplementation Obesity -BMI is 31 -recommend weight loss -Complicates treatment, prognosis, outcomes DVT prophylaxis -Continue subcu Lovenox CODE STATUS -Full code Charges/Coding Visit Charges Inpatient E&M: 35551 Subs Hosp L2 08/07/23 5667 <Electronically signed by Melly Leong DO> Cosigner Signature (if applicable): CC: ~ Signed [facility] Work Phone: 1(119) 697-888703-12-2024 Progress note Author Melly Leong [facility] August 07, 2023 3:23pm Note Date/Time August 06, 2023 6:2 4pm [facility] Medical Records Department [address] [place] [address] Progress Note - Hospitalist 08/06/23 1809 MR#: [id number] Acct: [id number] Name: SEBASTIEN OWENS Rep #:[id number] : 1950 73 From: Melly Leong DO PCP: Dr. Afua Velez DO Status:ADM IN Location: ICU ICU02-1 Reason for Visit Reason for Visit: Chest pain Subjective Subjective Mr. Owens is a 73-year-old white male who presented to the emergency department [facility] on 08/03/2023 with a chief complaint of chest pain. 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 He denied any lightheadedness or dizziness but did admit to headache on presentation. He had no shortness of breath, nausea, or vomiting. He had a stress test that was doneon 07/26/2023 which showed mild to moderate yvette-infarct ischemia and no acute ischemic changes. His vital signs on presentation were unremarkable and he was satting 93% on 2 L nasal cannula. His CBC was overall unremarkable and his BMP was overall unremarkable. His initial and delta troponin were both unremarkable. EKG showed PVCs but no acute ST-T wave changes and he was admitted for unstable angina. Cardiology was consulted and recommended cardiac catheterization during this acute admission and adjustments were made in his antihypertensive regimen. He was taken to the [facility] on 08/06/2023 at which time he was found to have high-grade right coronary artery lesion with in-stent stenosis and a patent stent in the LAD with a circumflex having left to right collaterals. He was referred for immediate PCI and 2 stents were placed in the RCA. Of note a small ostial vessel was obstructed while reopening the right coronary artery due to his stenosis. Procedure was completed and he was transferred to the ICU. Unfortunately he developed unstable ventricular tachycardia and a CODE BLUE was called. He got about 2 minutes of CPR and was defibrillated with return to sinus tachycardia. Cardiology was at the bedside and instituted into arrhythmia with amiodarone. The patient has been doing wellsince this point in time. He had a bout of hematemesis shortly after his arrestbut his hemoglobins have remained stable. He also had postcatheterization hematoma of the right forearm related to his CPR which is softening at this timeand he has no signs of compartment syndrome at his distal right upper extremity. Family was at the bedside and updated. Patient currently has no complaints other than some soreness everywhere. Mohr catheter was placed and he is complaining of some penile pain related to this. Objective Data Objective Data Vital Signs: Vital Signs Temp Pulse Resp BP Pulse Ox O2 Del Method O2 Flow Rate 97.1 F L 105 H 28 H 120/83 H 96 Nasal Cannula 2 08/06/23 16:00 08/06/23 17:00 08/06/23 17:00 08/06/23 17:00 08/06/23 17:00 08/06/23 17:00 08/06/23 17:00 Oxygen Flow Rate (L/min) 2 Oxygen Delivery Method Nasal Cannula Weight: 86.5 kg Body Mass Index (BMI) 30.7 Intake & Output: Intake and Output for Last 24 Hours 08/04/23 08/05/23 08/06/23 22:59 23:59 23:59 Intake Total 97.48 / 97.48 Output Total 100 / 100 Balance -2.52 / -2.52 Lab / Micro Data 08/06/23 13:50 08/06/23 03:55 Labs: Laboratory Results - last 24 hr 08/06/23 03:55: WBC 8.3, RBC 4.46 L, Hgb 13.9, Hct 40.7, MCV 91.3, MCH 31.2, MCHC 34.2, RDW Std Deviation 43.1, RDW Coeff of Leeann 13.1, Plt Count 172, MPV 9.3, Immature Gran % (Auto) 1.000 H, Neut % (Auto) 57.9, Lymph % (Auto) 27.5, Glades % (Auto) 10.7 H, Eos % (Auto) 2.5, Baso % (Auto) 0.4, Absolute Neuts (auto)4.8, Absolute Lymphs (auto) 2.27, Nucleated RBC % 0, Sodium 139, Potassium 3.9, Chloride 106, Carbon Dioxide 26.0, Anion Gap 7, BUN 22 H, Creatinine 1.34 H, Estim Creat Clear Calc 50.61, Est GFR (MDRD) Af Amer 67, Est GFR (MDRD) Non-Af 56 L, BUN/Creatinine Ratio 16.4, Glucose 113 H, Calcium 9.6 08/06/23 13:50: WBC 15.7 H, RBC 4.60, Hgb 14.1, Hct 41.8, MCV 90.9, MCH 30.7, MCHC 33.7, RDW Std Deviation 43.4, RDW Coeff of Leeann 13.1, Plt Count 204, MPV 9.8 Rhythm Strip Rhythm Strip: Sinus Rhythm Rate: 68 Ectopy: PVC(s) (Some in a bigeminal pattern.) Physical Exam Const alert, oriented x3, no apparent distress and well nourished Constitutional Narrative: Obese, older, white male, sitting up in bed watching television, appears comfortable, at bedside, nontoxic-appearing HEENT head/scalp atraumatic and moist oral mucous membranes HEENT Narrative: Mallampati 2-3, no thrush Head and Scalp: normocephalic Resp normal respiratory effort, no retractions, no use of accessory muscles and clearto auscultation bilaterally Resp Narrative: Some guarding with deep breathing due to pain related to CPR Auscultation: Negative for rales, rhonchi or wheezes Cardio regular rhythm, S1 normal heart sound, S2 normal heart sound, no murmurs, no rub, no gallops and no clicks Cardio Narrative: Sinus tachycardia GI normal to inspection, nondistended, normoactive bowel sounds, soft to palpation and non-tender Extremity Extremity Narrative: Right arm is swollen and mildly firm however softening, sensation in right hand is normal with good cap refill, no cyanosis or clubbing, no other edema are noted in the other extremities, ecchymosis is forming in the right arm and hand Neuro oriented x3, moves all extremities and no focal motor deficits Speech: speech normal Psych affect normal Psych Narrative: Eye contact is good, patient interacts appropriately Assessment & Plan Assessment/Plan (1) Abnormal nuclear stress test: (2) CAD S/P percutaneous coronary angioplasty: (3) Chest pain: QUALIFIERS: Chest pain type: unspecified Qualified Code(s): R07.9- Chest pain, unspecified (4) Cardiopulmonary arrest: (5) Ventricular tachycardia: PLAN: Plan Unstable angina -2 drug-eluting stents placed in stenotic area of RCA -Currently chest pain-free -Continue -Continue Plavix Continue isosorbide mononitrate -Continue metoprolol -Continue atorvastatin -Cardiology following-appreciate input CPA with ventricular tachycardia -2 minutes of CPR with ROSC -Discussed with cardiology and they feel that this is likely related to small ostial obstruction from stent -Amiodarone initiated we will continue -Cardiology following-appreciate input -No further events since initiating amiodarone -Will check TSH Right arm hematoma status postcardiac catheterization -Related to cardiopulmonary arrest and resuscitation -No current signs of compartment syndrome -Continue to watch neurovascular status and right arm and hand--> discussed withnursing -Every 4 hour assessment ordered Acute bronchitis -PCP recently placed patient on Levaquin -Complete antibiotic course -Will need to monitor acute TC due to amiodarone use CAD/HTN/HPL -Continue aspirin, Plavix, beta-shreya, isosorbide mononitrate, statin -Continue home amlodipine -Cardiology following-appreciate input -See above Gout -Continue home allopurinol -Continue home colchicine GERD -Continue home famotidine -Continue home Protonix BPH with retention -Continue Flomax -Continue Proscar -Mohr in place and will remove tomorrow if medically stable Vitamin D deficiency -Continue home vitamin D supplementation Obesity -BMI is 30.8 -recommend weight loss -Complicates treatment, prognosis, outcomes DVT prophylaxis -Continue subcu Lovenox CODE STATUS -Full code Charges/Coding Visit Charges Inpatient E&M: 20520 Subs Hosp L2 08/06/23 1824 <Electronically signed by Melly Leong DO> Cosigner Signature (if applicable): CC: ~ Signed ADDENDUM by Dr. Melly Leong DO on 08/07/23 at 1523 Addendum . 08/07/23 1523<Electronically signed by Melly Leong DO> Cosigner Signature (if applicable): cc: ~* Signed [facility] Work Phone: 1(946) 919-343903-12-2024 Progress note Author Saleem Rodriguez [facility] August 07, 2023 8:45am Note Date/Time August 07, 2023 8:4 5am [facility] Medical Records Department [address] [place] [address] Progress Note - Cardiology 08/07/23 0836 MR#: [id number] Acct: [id number] Name: SEBASTIEN OWENS Rep #:[id number] : 1950 73 From: Saleem Rodriguez MD PCP: Dr. Afua Velez DO Status:ADM IN Location: ICU ICU02-1 Subjective Subjective Events of yesterday were reviewed with the patient and in the chart. The patient had an episode of what appeared to be polymorphic ventricular tachycardia that deteriorated into ventricular fibrillation early after his cardiovascular intervention. Overnight the patient has had rare PVCs he has been on IV amiodarone infusion. His right forearm is less painful than it was yesterday and softer by report of the staff. His neurovascular checks were negative all night long and he reportshe can feel all of his fingers and has good capillary refill. Objective Data Vital Signs: Vital Signs Temp Pulse Resp BP Pulse Ox O2 Del Method O2 Flow Rate 98.4 F 74 15 112/74 98 Nasal Cannula 2 08/07/23 04:23 08/07/23 07:00 08/07/23 07:00 08/07/23 06:00 08/07/23 07:00 08/07/23 07:00 08/07/23 07:00 Oxygen Flow Rate (L/min) 2 Oxygen Delivery Method Nasal Cannula Weight: 192 lb 3.889 oz Body Mass Index (BMI) 31.0 Intake & Output: Intake and Output for Last 24 Hours 08/05/23 08/06/23 08/07/23 23:59 23:59 23:59 Intake Total 1518.57 / 1518.57 21.43 / 21.43 Output Total 1600 / 1600 200 / 200 Balance -81.43 / -81.43 -178.57 / -178.57 Lab / Micro Data Attestation: I reviewed the patient's lab results. 08/07/23 03:15 08/07/23 03:15 Labs: Laboratory Results - last 24 hr 08/06/23 13:50: WBC 15.7 H, RBC 4.60, Hgb 14.1, Hct 41.8, MCV 90.9, MCH 30.7, MCHC 33.7, RDW Std Deviation 43.4, RDW Coeff of Leeann 13.1, Plt Count 204, MPV 9.8 08/06/23 18:00: WBC 18.3 H, RBC 4.53 L, Hgb 14.0, Hct 41.4, MCV 91.4, MCH 30.9, MCHC 33.8, RDW Std Deviation 43.5, RDW Coeff of Leeann 13.2, Plt Count 182, MPV 9.7 08/07/23 03:15: WBC 17.2 H, RBC 4.25 L, Hgb 13.0, Hct 38.8 L, MCV 91.3, MCH 30.6, MCHC 33.5, RDW Std Deviation 43.9, RDW Coeff of Leeann 13.3, Plt Count 186, MPV 9.8, Immature Gran % (Auto) 0.900, Neut % (Auto) 78.3 H, Lymph % (Auto) 10.0L, Glades % (Auto) 10.4 H, Eos % (Auto) 0.1, Baso % (Auto) 0.3, Absolute Neuts (auto) 13.5 H, Absolute Lymphs (auto) 1.71, Nucleated RBC % 0, Differential Comment SCANNED, Diff Path Review September, Sodium 139, Potassium 4.2, Chloride 107, Carbon Dioxide 23.0, Anion Gap 9, BUN 19 H, Creatinine 1.40 H, Estim Creat Clear Calc 48.63, Est GFR (MDRD) Af Amer 64, Est GFR (MDRD) Non-Af 53 L, BUN/Creatinine Ratio 13.6, Glucose 127 H, Calcium 9.4, Phosphorus 4.7, Magnesium1.9, Total Bilirubin 0.80, AST 58 H, ALT 25, Alkaline Phosphatase 59, Total Protein 6.9, Albumin 3.7, Globulin 3.2, Albumin/Globulin Ratio 1.2, TSH 0.65 Rhythm Strip Rhythm Strip: Sinus Rhythm Rate: 68 Ectopy: PVC(s) (Some in a bigeminal pattern.) Cardiology Labs/Tests 08/06/23 13:50: WBC 15.7 H, RBC 4.60, Hgb 14.1, Hct 41.8, MCV 90.9, MCH 30.7, MCHC 33.7, Plt Count 204, MPV 9.8 08/06/23 18:00: WBC 18.3 H, RBC 4.53 L, Hgb 14.0, Hct 41.4, MCV 91.4, MCH 30.9, MCHC 33.8, Plt Count 182, MPV 9.7 08/07/23 03:15: WBC 17.2 H, RBC 4.25 L, Hgb 13.0, Hct 38.8 L, MCV 91.3, MCH 30.6, MCHC 33.5, Plt Count 186, MPV 9.8, Immature Gran % (Auto) 0.900, Neut % (Auto) 78.3 H, Lymph % (Auto) 10.0 L, Glades % (Auto) 10.4 H, Eos % (Auto) 0.1, Baso % (Auto) 0.3, Absolute Neuts (auto) 13.5 H, Nucleated RBC % 0, Sodium 139, Potassium 4.2, Chloride 107, Carbon Dioxide 23.0, Anion Gap 9, BUN 19 H, Creatinine 1.40 H, Est GFR (MDRD) Af Amer 64, Est GFR (MDRD) Non-Af 53 L, BUN/Creatinine Ratio 13.6, Glucose 127 H, Calcium 9.4, Phosphorus 4.7, Magnesium1.9, Total Bilirubin 0.80 Rhythm: EKG: ECHO: Stress Test: Cardiac Cath: PCI: CT Surgery: Holter monitor: EPS: PPM: CXR: Chest CT Scan: Physical Exam Const oriented x3 Constitutional Narrative: Sitting up in the chair in no apparent distress. HEENT normocephalic Eyes EOMs intact bilaterally Neck full ROM Chest inspection of chest normal Resp normal respiratory effort and clear to auscultation bilaterally Cardio regular rate, regular rhythm, S1 normal heart sound, S2 normal heart sound, no murmurs, no rub and no gallops Cardio Narrative: Right forearm is tender with ecchymosis noted around the insertion site. There is good capillary refill and normal sensation of the fingers. GI soft to palpation Extremity no pedal edema Skin General Skin Exam: ecchymosis Wound Narrative: At the catheter insertion site in the right radial area. Neuro Neuro Narrative: Alert and oriented x 3 Psych mental status grossly normal Assessment & Plan Assessment/Plan (1) Ventricular tachycardia: PLAN: The ventricular tachycardia. To be ischemic in etiology probably related to jailing of the acute marginal branch of the right coronary with the stenting procedure. He also had slow reflow with during the procedure with stent deployment in the distal right coronary artery. The patient arrested with the ischemic ventricular arrhythmia which was cardioverted and he had 2 minutes of CPR. The patient is up in the chair without complaints this morning. He reports his arm feels better but is still tight. The patient's amiodarone is still running on the IV loading dose. We will discontinue this when the IV load is in and place him on Lopressor 50 mg twice daily. (2) CAD S/P percutaneous coronary angioplasty: PLAN: The patient should stay on his dual antiplatelet therapy uninterrupted for1 year. Secondary risk factors are being managed as well. He will continue on the rosuvastatin and beta-shreya therapy. The patient be ambulated in the halls today and as long as he pains good vital signs and no significant ectopy he should be able to be discharged to home in the next 24 to 48 hours. PLAN: Plan 1. DC amiodarone once his IV bag infusion is infused 2. Start Lopressor 50 mg twice daily 3. Increase activity as tolerated walking in the halls. Charges/Coding Visit Charges Inpatient E&M: 77560 Subs Hosp L2 08/07/23 0845 <Electronically signed by Saleem Rodriguez MD> Cosigner Signature (if applicable): CC: ~ Signed [facility] Work Phone: 1(526) 533-874603-11-2024 Evaluation note* Diagnosis Onset Date Resolution Status Chest pain acute Chest pain resolved Unstable angina resolved Bradycardia acute History of coronary artery stent placement August 06, 2023 chronic Hyperlipidemia chronic Bradycardia acute History of coronary artery disease acute History of hypertension acut e Near syncope acute STEMI (ST elevation myocardial infarction) acute Chronic kidney disease (CKD) , stage III (moderate) chronic History of coronary artery stent placement August 06, 2023 chronic [facility] Work Phone: 1(711) 178-991303-11-2024 Evaluation note* Diagnosis Onset Date Resolution Status Chest pain acute Chest pain resolved Unstable angina resolved Bradycardia acute History of coronary artery stent placement August 06, 2023 chronic Hyperlipidemia chronic Bradycardia acute History of coronary artery disease acute History of hypertension acut e STEMI (ST elevation myocardial infarction) acute Chronic kidney disease (CKD) , stage III (moderate) chronic History of coronary artery stent placement August 06, 2023 chronic Near syncope resolved [facility] Work Phone: 1(647) 431-635703-11-2024 Progress note Author Saleem Rodriguez [facility] August 06, 2023 8:55am Note Date/Time August 06, 2023 8:5 0am [facility] Medical Records Department [address] [place] [id number] Progress Note - Cardiology 08/06/23 0848 MR#: [id number] Acct: [id number] Name: SEBASTIEN OWENS Rep #:[id number] : 1950 73 From: Saleem Rodriguez MD PCP: Dr. Afua Velez, DO Status:ADM IN Location: [place] [address] 1 Subjective Subjective Patient continues complain of dull headache which is most consistent with his institution of long-acting nitrates while hospitalized. However, he has had no recurrence of his chest symptoms since institution of the long-acting nitrate. His enzymes are negative he did have a positive stress test in June and was scheduled for cath a week from tomorrow. The patient is scheduled for catheterization today as an inpatient. Objective Data Vital Signs: Vital Signs Temp Pulse Resp BP Pulse Ox O2 Del Method O2 Flow Rate 98.6 F 72 18 123/79 H 96 Room Air 2 08/06/23 05:10 08/06/23 05:13 08/06/23 05:10 08/06/23 05:10 08/06/23 05:10 08/06/23 05:10 08/03/23 15:10 Oxygen Flow Rate (L/min) 2 Oxygen Delivery Method Room Air Weight: 190 lb 11.198 oz Body Mass Index (BMI) 30.7 Intake & Output: Intake and Output for Last 24 Hours 08/04/23 08/05/23 08/06/23 22:59 23:59 23:59 Intake Total 0.5 / 0.5 Balance 0.5 / 0.5 Lab / Micro Data 08/06/23 03:55 08/06/23 03:55 Labs: Laboratory Results - last 24 hr 08/06/23 03:55: WBC 8.3, RBC 4.46 L, Hgb 13.9, Hct 40.7, MCV 91.3, MCH 31.2, MCHC 34.2, RDW Std Deviation 43.1, RDW Coeff of Leeann 13.1, Plt Count 172, MPV 9.3, Immature Gran % (Auto) 1.000 H, Neut % (Auto) 57.9, Lymph % (Auto) 27.5, Glades % (Auto) 10.7 H, Eos % (Auto) 2.5, Baso % (Auto) 0.4, Absolute Neuts (auto)4.8, Absolute Lymphs (auto) 2.27, Nucleated RBC % 0, Sodium 139, Potassium 3.9, Chloride 106, Carbon Dioxide 26.0, Anion Gap 7, BUN 22 H, Creatinine 1.34 H, Estim Creat Clear Calc 50.61, Est GFR (MDRD) Af Amer 67, Est GFR (MDRD) Non-Af 56 L, BUN/Creatinine Ratio 16.4, Glucose 113 H, Calcium 9.6 Rhythm Strip Rhythm Strip: Sinus Rhythm Rate: 68 Cardiology Labs/Tests 08/06/23 03:55: WBC 8.3, RBC 4.46 L, Hgb 13.9, Hct 40.7, MCV 91.3, MCH 31.2, MCHC 34.2, Plt Count 172, MPV 9.3, Immature Gran % (Auto) 1.000 H, Neut % (Auto)57.9, Lymph % (Auto) 27.5, Glades % (Auto) 10.7 H, Eos % (Auto) 2.5, Baso % (Auto)0.4, Absolute Neuts (auto) 4.8, Nucleated RBC % 0, Sodium 139, Potassium 3.9, Chloride 106, Carbon Dioxide 26.0, Anion Gap 7, BUN 22 H, Creatinine 1.34 H, EstGFR (MDRD) Af Amer 67, Est GFR (MDRD) Non-Af 56 L, BUN/Creatinine Ratio 16.4, Glucose 113 H, Calcium 9.6 Rhythm: EKG: ECHO: Stress Test: Cardiac Cath: PCI: CT Surgery: Holter monitor: EPS: PPM: CXR: Chest CT Scan: Physical Exam Const oriented x3 HEENT normocephalic Eyes EOMs intact bilaterally Chest inspection of chest normal Resp normal respiratory effort and clear to auscultation bilaterally Cardio regular rate, regular rhythm, S1 normal heart sound, S2 normal heart sound, no murmurs, no rub and no gallops Extremity no pedal edema Skin no rashes or lesions noted Neuro Neuro Narrative: Alert and oriented x 3. Psych mental status grossly normal Assessment & Plan Assessment/Plan (1) Abnormal nuclear stress test: PLAN: The patient stress test done in June 2023 showed posterior scar with yvette-infarct ischemia. The patient is now presented with recurrent rest pain that has been controlled since hospitalization with long-acting nitrates. Although he is experiencing headaches. The patient scheduled for left heart catheterization today. (2) CAD S/P percutaneous coronary angioplasty: PLAN: Patient will undergo catheterization today he has a remote circumflex stenting. PLAN: Plan 1. Left heart catheterization today. If this checks out with no significant onImdur 30 mg daily. He should take Tylenol progression of disease the patient can be discharged home and trial this for at least 10 days as it has controlled his symptoms. Charges/Coding Visit Charges Inpatient E&M: 08245 Subs Hosp L2 08/06/23 0855 <Electronically signed by Saleem Rodriguez MD> Cosigner Signature (if applicable): CC: ~ Signed [facility] Work Phone: 1(971) 778-983003-10-2024 Progress note Author Fabio Kittoe [facility] August 05, 2023 10:09am Note Date/Time August 05, 2023 10: 00am [facility] Medical Records Department [address] [place] [address] Progress Note - Hospitalist 08/05/23 1000 MR#: [id number] Acct: [id number] Name: SEBASTIEN OWENS Rep #:[id number] : 1950 73 From: Fabio Tovar MD PCP: Dr. Afua Velez, DO Status:ADM IN Location: [place] [address] Reason for Visit Reason for Visit: Diagnoses Mixed hyperlipidemia (08/03/23) Essential (primary) hypertension (08/03/23) Unstable angina (08/03/23) Atherosclerotic heart disease of [place] coronary artery without angina pectoris (08/03/23) Chest pain, unspecified (08/03/23) Abnormal result of other cardiovascular function study (08/03/23) Subjective Subjective Patient seen complains of having experienced some epigastric discomfort during the night. Plan is for patient to undergo left heart catheterization in a.m. Objective Data Objective Data Vital Signs: Vital Signs Temp Pulse Resp BP Pulse Ox O2 Del Method O2 Flow Rate 97.0 F L 72 16 123/71 H 97 Room Air 2 08/05/23 09:25 08/05/23 09:29 08/05/23 09:25 08/05/23 09:25 08/05/23 09:25 08/05/23 09:25 08/03/23 15:10 Oxygen Flow Rate (L/min) 2 Oxygen Delivery Method Room Air Weight: 86.5 kg Body Mass Index (BMI) 30.7 Intake & Output: Intake and Output for Last 24 Hours 08/03/23 08/04/23 08/06/23 23:59 23:59 00:59 Intake Total 500 / 500 Balance 500 / 500 Lab / Micro Data 08/05/23 05:04 08/05/23 05:04 Labs: Laboratory Results - last 24 hr 08/05/23 05:04: WBC 7.8, RBC 4.01 L, Hgb 12.5 L, Hct 37.6 L, MCV 93.8, MCH 31.2,MCHC 33.2, RDW Std Deviation 44.5 H, RDW Coeff of Leeann 13.1, Plt Count 162, MPV 10.0, Immature Gran % (Auto) 1.400 H, Neut % (Auto) 47.8, Lymph % (Auto) 35.6, Glades % (Auto) 10.7 H, Eos % (Auto) 4.0, Baso % (Auto) 0.5, Absolute Neuts (auto)3.7, Absolute Lymphs (auto) 2.77, Nucleated RBC % 0, Sodium 139, Potassium 4.2, Chloride 108 H, Carbon Dioxide 26.0, Anion Gap 5, BUN 20 H, Creatinine 1.25, Estim Creat Clear Calc 54.26, Est GFR (MDRD) Af Amer 73, Est GFR (MDRD) Non-Af 60, BUN/Creatinine Ratio 16.0, Glucose 96, Calcium 9.0, Phosphorus 3.4, Magnesium 1.9 Rhythm Strip Rhythm Strip: Sinus Rhythm Rate: 85 Ectopy: PVC(s) (Some in a bigeminal pattern.) Physical Exam Narrative GENERAL: cooperative HEENT: Atraumatic; normocephalic EYES; Anicteric, Normal Conjunctiva NECK; supple, normal thyroid, RESPIRATORY: Diminished to auscultation CARDIOVASCULAR: Regular S1 S2, GI: soft, normoactive bowel sounds, : No Renal angle tenderness; EXTREMITIES: No edema, no clubbing, MUSCULOSKELETAL: no muscle wasting NEURO: Awake; no lateralizing signs. SKIN: No Rash PSYCH; Flat affect Assessment & Plan Assessment/Plan (1) Unstable angina: PLAN: Plan Patient is a 73-year-old gentleman with recent abnormal stress test who is scheduled to undergo left heart catheterization on 08/14/2023 presented to the emergency department with chest pain and assessment of unstable angina made, admitted to monitored bed for further management 1. Chest pain consistent with unstable angina ? Patient had abnormal stress test on 07/26/2023 and scheduled to undergo left heart catheterization on 08/14/2023 presented with chest pain. Cardiac enzymes have so far been negative to date treatment initiated per protocol consultation placed to cardiology plan is for patient to undergo left heart catheterization likely on 08/06/2023 ? 08/05/2023;Patient seen complains of having experienced some epigastric discomfort during the night. Plan is for patient to undergo left heart catheterization in a.m. 2. Coronary artery disease ? With previous PCI patient remains on guideline directed medical therapy 3. Hypertension - Blood pressure controlled, home medications continued with dose adjustment as needed 4. Dyslipidemia -Patient is on statin therapy, continued at home dose 5. Gout ? Symptoms controlled on allopurinol 6. BPH with lower urinary obstructive symptoms - Patient treated with tamsulosin and finasteride 7. GERD ? Patient is on famotidine 8. Vitamin D deficiency ? Patient is on vitamin D3 supplement at home 9. Class I obesity with BMI of 31 ? Complicating care weight loss advised DVT prophylaxis ? SC Lovenox Time spent in the patient's overall evaluation,decision-making process, review of diagnostic data, adjustment of management, discussion with other providers, nursing nursing and ancillary staff involved in patient's care documentation, 36 minutes Charges/Coding Visit Charges Inpatient E&M: 08682 Subs Hosp L2 08/05/23 1009 <Electronically signed by Fabio Tovar MD> Cosigner Signature (if applicable): CC: ~ Signed [facility] Work Phone: 1(321) 180-133703-10-2024 Progress note Author Saleem Rodriguez [facility] August 05, 2023 9:19am Note Date/Time August 05, 2023 9:1 8am [facility] Medical Records Department [address] [place] [address] Progress Note - Cardiology 08/05/23912 MR#: [id number] Acct: [id number] Name: SEBASTIEN OWENS Rep #:[id number] : 1950 73 From: Saleem Rodriguez MD PCP: Dr. Afua Velez, DO Status:ADM IN Location: [place] [address] Subjective Subjective The patient denies any chest symptoms overnight. He is complaining of his left shoulder hurting after he has a surgical issue with his left shoulder. He also complains of a dull headache which is probably related to long-acting nitrates which started yesterday. I went over with him the importance of trying to tolerate the headache for a few days as it should resolve and we would use Tylenol as needed to treat it. The patient was instructed to remain n.p.o. after midnight for his cath tomorrowmorning. Objective Data Vital Signs: Vital Signs Temp Pulse Resp BP Pulse Ox O2 Del Method O2 Flow Rate 97.3 F L 75 18 124/87 H 97 Room Air 2 08/05/23 05:15 08/05/23 05:15 08/05/23 05:15 08/05/23 05:15 08/05/23 08:03 08/05/23 08:03 08/03/23 15:10 Oxygen Flow Rate (L/min) 2 Oxygen Delivery Method Room Air Weight: 190 lb 11.198 oz Body Mass Index (BMI) 30.7 Intake & Output: Intake and Output for Last 24 Hours 08/03/23 08/04/23 08/06/23 23:59 23:59 00:59 Intake Total 500 / 500 Balance 500 / 500 Lab / Micro Data 08/05/23 05:04 08/05/23 05:04 Labs: Laboratory Results - last 24 hr 08/05/23 05:04: WBC 7.8, RBC 4.01 L, Hgb 12.5 L, Hct 37.6 L, MCV 93.8, MCH 31.2,MCHC 33.2, RDW Std Deviation 44.5 H, RDW Coeff of Leeann 13.1, Plt Count 162, MPV 10.0, Immature Gran % (Auto) 1.400 H, Neut % (Auto) 47.8, Lymph % (Auto) 35.6, Glades % (Auto) 10.7 H, Eos % (Auto) 4.0, Baso % (Auto) 0.5, Absolute Neuts (auto)3.7, Absolute Lymphs (auto) 2.77, Nucleated RBC % 0, Sodium 139, Potassium 4.2, Chloride 108 H, Carbon Dioxide 26.0, Anion Gap 5, BUN 20 H, Creatinine 1.25, Estim Creat Clear Calc 54.26, Est GFR (MDRD) Af Amer 73, Est GFR (MDRD) Non-Af 60, BUN/Creatinine Ratio 16.0, Glucose 96, Calcium 9.0, Phosphorus 3.4, Magnesium 1.9 Rhythm Strip Rhythm Strip: Sinus Rhythm Rate: 85 Ectopy: PVC(s) (Some in a bigeminal pattern.) Cardiology Labs/Tests 08/05/23 05:04: WBC 7.8, RBC 4.01 L, Hgb 12.5 L, Hct 37.6 L, MCV 93.8, MCH 31.2,MCHC 33.2, Plt Count 162, MPV 10.0, Immature Gran % (Auto) 1.400 H, Neut % (Auto) 47.8, Lymph % (Auto) 35.6, Glades % (Auto) 10.7 H, Eos % (Auto) 4.0, Baso %(Auto) 0.5, Absolute Neuts (auto) 3.7, Nucleated RBC % 0, Sodium 139, Potassium 4.2, Chloride 108 H, Carbon Dioxide 26.0, Anion Gap 5, BUN 20 H, Creatinine 1.25, Est GFR (MDRD) Af Amer 73, Est GFR (MDRD) Non-Af 60, BUN/Creatinine Ratio 16.0, Glucose 96, Calcium 9.0, Phosphorus 3.4, Magnesium 1.9 Rhythm: EKG: ECHO: Stress Test: Cardiac Cath: PCI: CT Surgery: Holter monitor: EPS: PPM: CXR: Chest CT Scan: Physical Exam Const oriented x3 HEENT normocephalic Eyes EOMs intact bilaterally Neck no JVD Chest inspection of chest normal Resp normal respiratory effort and clear to auscultation bilaterally Cardio regular rate, regular rhythm, S1 normal heart sound, S2 normal heart sound, no murmurs, no rub and no gallops Extremity no pedal edema Skin no rashes or lesions noted Neuro Neuro Narrative: Alert and oriented x 3 Psych mental status grossly normal Assessment & Plan Assessment/Plan (1) Chest pain: QUALIFIERS: Chest pain type: unspecified Qualified Code(s): R07.9- Chest pain, unspecified PLAN: The patient's chest discomfort has not recurred overnight. It had been somewhat atypical occurring only at rest in the recumbent position. However he did have an abnormal pharmacologic nuclear stress test. And he does have known coronary disease. (2) Coronary artery disease: QUALIFIERS: Coronary Disease-Associated Artery/Lesion type: nativeartery [place] vs. transplanted heart: [place] heart Associated angina: unspecified whether angina present Qualified Code(s): I25.10 - Atherosclerotic heart disease of [place] coronary artery without angina pectoris PLAN: He is status post remote stenting he believes the symptoms he is experiencing that brought him to the hospital are identical to what he had priorto his stenting procedures. (3) Abnormal nuclear stress test: PLAN: The patient's stress test showed posterior scar with yvette-infarct ischemia. He was scheduled for an outpatient cath in the next 10 days but presented to the emergency department with rest pain. The patient will be scheduled for left heart catheterization tomorrow with Dr. Rojas. PLAN: Plan Plan cath tomorrow morning. The patient is aware the procedure risk/benefit andalternatives explained to the patient he has had multiple caths and at least 2 PCI's in the past. Charges/Coding Visit Charges Inpatient E&M: 53699 Subs Hosp L2 08/05/23 0919 <Electronically signed by Saleem Rodriguez MD> Cosigner Signature (if applicable): CC: ~ Signed [facility] Work Phone: 1(488) 289-114503-09-2024 Consult note Author Saleem Rodriguez [facility] August 04, 2023 11:34am Note Date/Time August 04, 2023 11:3 0am [facility] Medical Records Department [address] [facility] [place] [address] Consultation - Cardiology 08/04/23 1117 MR#: [id number] Acct: [id number] Name: SEBASTIEN OWENS Rep #:[id number] : 1950 73 From: Saleem Rodriguez MD PCP: Dr. Afua Velez, DO Status:ADM IN Location: [place] [id number]- Assessment & Plan Assessment/Plan (1) Chest pain: QUALIFIERS: Chest pain type: unspecified Qualified Code(s): R07.9- Chest pain, unspecified PLAN: The patient's chest discomfort reminds him of what he experienced at the time of his original infarct back in 2018. However that was precipitated by activity. All of these chest symptoms he is experiencing now occur at rest in recumbent position. His enzymes are negative x 3 sets and his EKG does not showany acute ischemic changes although he does have frequent ectopy and has a history of significant PVC burden on a Holter monitor done in 2020. The patient had a pharmacologic nuclear stress test which showed posterior lateral scar with yvette-infarct ischemia in the distribution of his known previous stent. He is scheduled to have an ambulatory outpatient cath done in the next [address] Prajapati but he presented to the emergency room and is now admitted. (2) Hyperlipidemia: QUALIFIERS: Hyperlipidemia type: mixed hyperlipidemia Qualified Code(s): E78.2 - Mixed hyperlipidemia PLAN: The patient is treated with rosuvastatin 10 mg daily. His will be followed up in the outpatient setting. His target LDL cholesterol should be less than 70. (3) Hypertension: QUALIFIERS: Hypertension type: primary hypertension Qualified Code(s): I10 - Essential (primary) hypertension PLAN: Blood pressure is well-controlled on his current medical therapy. (4) Coronary artery disease: QUALIFIERS: Coronary Disease-Associated Artery/Lesion type: nativeartery [place] vs. transplanted heart: [place] heart Associated angina: unspecified whether angina present Qualified Code(s): I25.10 - Atherosclerotic heart disease of [place] coronary artery without angina pectoris PLAN: The patient does have a history of coronary artery disease status post non-STEMI in 2018 and was intervened upon with a drug-eluting stent to the posterior lateral circumflex and he reports to me that it was reintervened upon for restenosis as well. It has been well over 1 to 2 years since his last intervention by his report. PLAN: Plan 1. Will attempt to add low-dose long-acting nitrates to his medical regimen. If he develops a headache this will be discontinued. 2. Will plan for left heart catheterization 08/06/2023. 3. Will start Plavix 75 mg daily today. HPI Consult Data Date of Consult: 08/04/23 HPI Narrative Reason for Consultation: chest pain HPI Narrative: SEBASTIEN OWENS, is a 73 M who presents to the emergency department with recurrence ofchest discomfort. This is comfortable has been occurring only when he is in recumbent position. It does not occur when he is up moving around in his trailer. However, it is identical to what he described as his original chest symptoms with his first heart catheterization and stenting of the circumflex. The patient had a pharmacologic stress test done 07/24/2023 occasional PVCs were noted and it was a basal lateral defect suggestive of prior basal lateral infarct and mild to moderate yvette-infarct ischemia. The patient was called and had been scheduled to have a left heart catheterization by Dr. Prajapati in the next2 weeks. The patient a previous history of a non-STEMI back in 2017. He had a stent placed in the proximal lateral circumflex. He was actually hospitalized in August for near syncope and in December for CVA. Last echo December 2022 showed apreserved ejection fraction. He had she had a Holter monitor in 2020 which showed a high PVC burden of approximately 11%. The patient reports that with activity he has been getting short of breath and this has been progressive since last fall when he noticed it when he was raking leaves. 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 Since admission the patient had a couple of short-lived episodes that awoke him from sleep last night in the hospital. An EKG done a little after midnight did not show any acute ischemic changes and his cardiac isoenzymes are negative x 3 sets. The patient refused sublingual nitroglycerin as he said it has given him a headache in the past. He also got a headache from long-term use of isosorbide. FORMERLY [facility], 1928–1983 Medical History Alcoholism Anemia Anxiety Atherosclerosis of coronary artery without angina pectoris Back pain BiPAP (biphasic positive airway pressure) dependence Chronic pain Coronary artery disease Dementia Depression Essential (primary) hypertension GI hemorrhage Gout History of stress test Hyperlipidemia Hypertension Myocardial infarct Non-smoker NSTEMI (non-ST elevated myocardial infarction) (04/13/18) Obesity Pancreatitis Pulmonary embolism Rheumatoid arthritis Sleep apnea Traumatic brain injury Unstable angina Home Medications allopurinol 100 mg tablet 200 mg PO QHS gout 11/07/20 [History Last Taken 08/02/23] aspirin 81 mg chewable tablet 81 mg PO DAILY thinner 11/07/20 [History Last Taken 08/03/23] cholecalciferol (vitamin D3) 125 mcg (5,000 unit) tablet 50,000 unit PO WE supplement 11/07/20 [History Last Taken 08/01/23] colchicine 0.6 mg tablet (Colcrys) 0.6 mg PO PRN gout 11/07/20 [History Last Taken Unknown] finasteride 5 mg tablet 5 mg PO QHS urine retention 11/07/20 [History Last Taken 08/02/23] tamsulosin 0.4 mg capsule 0.4 mg PO QHS urinary retention 11/07/20 [History Last Taken 08/02/23] alprazolam 0.5 mg tablet (Xanax) 0.25 mg PO .COMPLEX anxiety 11/09/20 [History Last Taken 08/03/23 09:00] nitroglycerin 0.4 mg sublingual tablet 0.4 mg sublingual Q5M PRN Cardiac/Chest Pain #0 tabs 11/09/20 [Rx Last Taken Unknown] acetaminophen 500 mg tablet 1,000 mg (2 x 500 mg) PO Q6H PRN PRN Pain Score 1-3 #0 tabs 11/15/20 [Rx Last Taken Unknown] pantoprazole 40 mg tablet,delayed release 40 mg PO BID indigestion 01/11/23 [History Last Taken 08/03/23 10:00] metoprolol tartrate 25 mg tablet 25 mg PO BID #180 tabs 04/26/23 [Rx Last Taken 08/03/23 10:00] famotidine 40 mg tablet 40 mg PO BID 06/14/23 [History Last Taken 08/03/23 10:00] ondansetron 4 mg disintegrating tablet 4 mg PO Q8-12H PRN nausea 06/14/23 [History Last Taken 08/03/23] rosuvastatin 10 mg tablet 10 mg PO QHS 06/14/23 [History Last Taken 08/02/23] amlodipine 5 mg tablet 5 mg PO QHS 08/03/23 [History Last Taken 08/02/23] levofloxacin 500 mg tablet 500 mg PO Q24H 08/03/23 [History Last Taken 08/03/23] oxybutynin chloride 10 mg tablet,extended release 24 hr 10 mg PO QHS 08/03/23 [History Last Taken 08/02/23] Allergy/AdvReac Type Severity Reaction Status Date / Time isosorbide AdvReac Mild Headache Verified 08/03/23 14:46 Family History Mother CAD (coronary artery disease) Surgical History History of coronary artery stent placement (04/13/18) History of knee surgery History of repair of rotator cuff Hx of cholecystectomy Social History household members: spouse Smoking Status: Never smoker alcohol intake: former details: Sober since 2010. substance use type: does not use ROS Constitutional Constitutional: Reports as per HPI Eyes Eyes: Reports systems reviewed and no addt'l complaints, except as documented ENT HEENT: Reports systems reviewed and no addt'l complaints, except as documented Cardiovascular Cardiovascular: Reports as per HPI Respiratory/Chest Respiratory/Chest: Reports as per HPI Gastrointestinal Gastrointestinal: Reports systems reviewed and no addt'l complaints, except as documented Genitourinary Genitourinary: Reports systems reviewed and no addt'l complaints, except as documented Musculoskeletal Musculoskeletal: Reports systems reviewed and no addt'l complaints, except as documented Integumentary Integumentary: Reports systems reviewed and no addt'l complaints, except as documented Neurologic Neurologic: Reports systems reviewed and no addt'l complaints, except as documented Psychiatric Psychiatric: Reports systems reviewed and no addt'l complaints, except as documented Endocrine Endocrinology: Reports systems reviewed and no addt'l complaints, except as documented Hematologic/Lymphatic Hematologic/Lymphatic: Reports systems reviewed and no addt'l complaints, exceptas documented Allergic/Immunologic Allergic/Immunologic: Reports systems reviewed and no addt'l complaints, except as documented Physical Exam Narrative The patient is resting comfortably in her composition in bed. Const oriented x3 HEENT normocephalic Eyes EOMs intact bilaterally Neck no JVD and no carotid bruits Chest inspection of chest normal Resp normal respiratory effort and clear to auscultation bilaterally Cardio regular rate, S1 normal heart sound, S2 normal heart sound, no murmurs, no rub and no gallops Rhythm: abnormal rhythm ectopic beats Peripheral Pulses: radial pulses present right 1+ and posterior tibial pulses present bilateral 2+ GI normal to inspection, nondistended, normoactive bowel sounds Extremity no pedal edema Skin no rashes or lesions noted Neuro Neuro Narrative: Alert and oriented x 3 Psych mental status grossly normal Risk Stratification Risk Stratification Applicable: Yes Age >/= 65: Yes >/= 3 CAD Risk Factors (HTN, HLD, DM, family hx of CAD, or current smoker): Yes Aspirin Use in the Past 7 Days: Yes Severe Angina (>/= episodes in 24 hours): No EKG ST Changes >/= 0.5mm: No Positive Cardiac Marker: No DIANNE Risk Stratification Score: 3 DIANNE % Risk: 13% Risk Charges/Coding Visit Charges Inpatient E&M: 36280 Init Hosp L2 Objective Data Vital Signs: Vital Signs Temp Pulse Resp BP Pulse Ox O2 Del Method O2 Flow Rate 97.6 F L 63 16 105/84 H 98 Room Air 2 08/04/23 09:10 08/04/23 09:14 08/04/23 09:10 08/04/23 09:10 08/04/23 09:10 08/04/23 09:10 08/03/23 15:10 Oxygen Flow Rate (L/min) 2 Oxygen Delivery Method Room Air Weight: 190 lb 11.198 oz Body Mass Index (BMI) 30.7 Intake & Output: Intake and Output for Last 24 Hours 08/02/23 08/03/23 08/04/23 23:59 23:59 23:59 Intake Total 500 / 500 Balance 500 / 500 Lab / Micro Data Attestation: I reviewed the patient's lab results. 08/04/23 05:43 08/04/23 06:15 Labs: Laboratory Results - last 24 hr 08/03/23 15:09: WBC 10.1, RBC 4.36 L, Hgb 13.5, Hct 40.9, MCV 93.8, MCH 31.0, MCHC 33.0, RDW Std Deviation 44.4 H, RDW Coeff of Leeann 13.0, Plt Count 184, MPV 10.2, Immature Gran % (Auto) 1.700 H, Neut % (Auto) 57.5, Lymph % (Auto) 29.0, Glades % (Auto) 8.9, Eos % (Auto) 2.2, Baso % (Auto) 0.7, Absolute Neuts (auto) 5.8, Absolute Lymphs (auto) 2.92, Nucleated RBC % 0, PT 12.6, INR 0.9, APTT 32.8, Sodium 143, Potassium 4.0, Chloride 115 H, Carbon Dioxide 18.0 L, Anion Gap 10, BUN 20 H, Creatinine 1.24, Estim Creat Clear Calc 55.86, Est GFR (MDRD) Af Amer 74, Est GFR (MDRD) Non-Af 61, BUN/Creatinine Ratio 16.1, Glucose 88, Calcium 9.0, Magnesium 2.3, Total Bilirubin 0.30, AST 22, ALT 27, Alkaline Phosphatase 65, Troponin I High Sens 21, Total Protein 7.1, Albumin 3.8, Globulin 3.3, Albumin/Globulin Ratio 1.2, Lipase 61 08/03/23 17:20: Troponin I High Sens 23 08/04/23 00:58: Troponin I High Sens 32 08/04/23 05:43: WBC 8.1, RBC 4.06 L, Hgb 12.5 L, Hct 38.3 L, MCV 94.3 H, MCH 30.8, MCHC 32.6, RDW Std Deviation 45.1 H, RDW Coeff of Leeann 13.2, Plt Count 167,MPV 9.2, Immature Gran % (Auto) 2.000 H, Neut % (Auto) 49.5, Lymph % (Auto) 34.0, Glades % (Auto) 10.5 H, Eos % (Auto) 3.3, Baso % (Auto) 0.7, Absolute Neuts (auto) 4.0, Absolute Lymphs (auto) 2.74, Nucleated RBC % 0 08/04/23 06:15: Sodium 142, Potassium 4.4, Chloride 113 H, Carbon Dioxide 23.0, Anion Gap 6, BUN 18, Creatinine 1.23, Estim Creat Clear Calc 55.14, Est GFR (MDRD) Af Amer 74, Est GFR (MDRD) Non-Af 61, BUN/Creatinine Ratio 14.6, Glucose 108 H, Calcium 8.6, Troponin I High Sens 25 Rhythm Strip Rhythm Strip: Sinus Rhythm Rate: 56 Ectopy: PVC(s) Cardiology Labs/Tests 08/03/23 15:09: WBC 10.1, RBC 4.36 L, Hgb 13.5, Hct 40.9, MCV 93.8, MCH 31.0, MCHC 33.0, Plt Count 184, MPV 10.2, Immature Gran % (Auto) 1.700 H, Neut % (Auto) 57.5, Lymph % (Auto) 29.0, Glades % (Auto) 8.9, Eos % (Auto) 2.2, Baso % (Auto) 0.7, Absolute Neuts (auto) 5.8, Nucleated RBC % 0, PT 12.6, INR 0.9, APTT32.8, Sodium 143, Potassium 4.0, Chloride 115 H, Carbon Dioxide 18.0 L, Anion Gap 10, BUN 20 H, Creatinine 1.24, Est GFR (MDRD) Af Amer 74, Est GFR (MDRD) Non-Af 61, BUN/Creatinine Ratio 16.1, Glucose 88, Calcium 9.0, Magnesium 2.3, Total Bilirubin 0.30 08/04/23 05:43: WBC 8.1, RBC 4.06 L, Hgb 12.5 L, Hct 38.3 L, MCV 94.3 H, MCH 30.8, MCHC 32.6, Plt Count 167, MPV 9.2, Immature Gran % (Auto) 2.000 H, Neut % (Auto) 49.5, Lymph % (Auto) 34.0, Glades % (Auto) 10.5 H, Eos % (Auto) 3.3, Baso %(Auto) 0.7, Absolute Neuts (auto) 4.0, Nucleated RBC % 0 08/04/23 06:15: Sodium 142, Potassium 4.4, Chloride 113 H, Carbon Dioxide 23.0, Anion Gap 6, BUN 18, Creatinine 1.23, Est GFR (MDRD) Af Amer 74, Est GFR (MDRD) Non-Af 61, BUN/Creatinine Ratio 14.6, Glucose 108 H, Calcium 8.6 Rhythm: EKG: ECHO: Stress Test: Cardiac Cath: PCI: CT Surgery: Holter monitor: EPS: PPM: CXR: Chest CT Scan: Radiography Diagnostic Testing: Radiology Impression Chest X-Ray 08/03/23 15:10 IMPRESSION: No significant interval change. Electronically Signed: Monica Santizo MD at 15:28 EST Reading Location ID and State: [facility] / [place] Tel , Service support , 08/04/23 1134 <Electronically signed by Saleem Rodriguez MD> Cosigner Signature (if applicable): CC: Dr. Afua Velez DO; Dr. Saleem Rodriguez MD; Dr. Mechelle Marquez MD~ Signed [facility] Work Phone: [phone]) 104-387303-09-2024 Progress note Author Fabio [facility] August 04, 2023 10:30am Note Date/Time August 04, 2023 8:30 am [facility] Medical Records Department [address] [place] [address] Progress Note - Hospitalist 08/04/23 0827 MR#: [id number] Acct: [id number] Name: SEBASTIEN OWENS Rep #:[id number] : 1950 73 From: Fabio Tovar MD PCP: Dr. Afua Velez, DO Status:ADM IN Location: [facility] [id number] Reason for Visit Reason for Visit: Diagnoses Unstable angina (08/03/23) Subjective Subjective Patient is a 73-year-old gentleman with recent abnormal stress test who is scheduled to undergo left heart catheterization on 08/14/2023 presented to the emergency department with chest pain and assessment of unstable angina made, admitted to monitored bed for further management Objective Data Objective Data Vital Signs: Vital Signs Temp Pulse Resp BP Pulse Ox O2 Del Method O2 Flow Rate 97.7 F L 61 14 105/68 97 Room Air 2 08/04/23 03:50 08/04/23 03:50 08/04/23 03:50 08/04/23 03:50 08/04/23 03:50 08/04/23 04:08 08/03/23 15:10 Oxygen Flow Rate (L/min) 2 Oxygen Delivery Method Room Air Weight: 86.5 kg Body Mass Index (BMI) 30.7 Intake & Output: Intake and Output for Last 24 Hours 08/02/23 08/03/23 08/04/23 23:59 23:59 23:59 Intake Total 500 / 500 Balance 500 / 500 Lab / Micro Data 08/04/23 05:43 08/04/23 06:15 Labs: Laboratory Results - last 24 hr 08/03/23 15:09: WBC 10.1, RBC 4.36 L, Hgb 13.5, Hct 40.9, MCV 93.8, MCH 31.0, MCHC 33.0, RDW Std Deviation 44.4 H, RDW Coeff of Leeann 13.0, Plt Count 184, MPV 10.2, Immature Gran % (Auto) 1.700 H, Neut % (Auto) 57.5, Lymph % (Auto) 29.0, Glades % (Auto) 8.9, Eos % (Auto) 2.2, Baso % (Auto) 0.7, Absolute Neuts (auto) 5.8, Absolute Lymphs (auto) 2.92, Nucleated RBC % 0, PT 12.6, INR 0.9, APTT 32.8,Sodium 143, Potassium 4.0, Chloride 115 H, Carbon Dioxide 18.0 L, Anion Gap 10, BUN 20 H, Creatinine 1.24, Estim Creat Clear Calc 55.86, Est GFR (MDRD) Af Amer 74, Est GFR (MDRD) Non-Af 61, BUN/Creatinine Ratio 16.1, Glucose 88, Calcium 9.0, Magnesium 2.3, Total Bilirubin 0.30, AST 22, ALT 27, Alkaline Phosphatase 65, Troponin I High Sens 21, Total Protein 7.1, Albumin 3.8, Globulin 3.3, Albumin/Globulin Ratio 1.2, Lipase 61 08/03/23 17:20: Troponin I High Sens 23 08/04/23 00:58: Troponin I High Sens 32 08/04/23 05:43: WBC 8.1, RBC 4.06 L, Hgb 12.5 L, Hct 38.3 L, MCV 94.3 H, MCH 30.8, MCHC 32.6, RDW Std Deviation 45.1 H, RDW Coeff of Leeann 13.2, Plt Count 167, MPV 9.2, Immature Gran % (Auto) 2.000 H, Neut % (Auto) 49.5, Lymph % (Auto) 34.0, Glades % (Auto) 10.5 H, Eos % (Auto) 3.3, Baso % (Auto) 0.7, Absolute Neuts (auto) 4.0, Absolute Lymphs (auto) 2.74, Nucleated RBC % 0 08/04/23 06:15: Sodium 142, Potassium 4.4, Chloride 113 H, Carbon Dioxide 23.0, Anion Gap 6, BUN 18, Creatinine 1.23, Estim Creat Clear Calc 55.14, Est GFR (MDRD) Af Amer 74, Est GFR (MDRD) Non-Af 61, BUN/Creatinine Ratio 14.6, Glucose 108 H, Calcium 8.6, Troponin I High Sens 25 Radiography Diagnostic Testing: Radiology Impression Chest X-Ray 08/03/23 15:10 IMPRESSION: No significant interval change. Electronically Signed: Monica Santizo MD at 15:28 EST Reading Location ID and State: [facility] / [place] Tel , Service support , Rhythm Strip Rhythm Strip: Sinus Rhythm Rate: 86 Ectopy: PVC(s) Physical Exam Narrative GENERAL: cooperative HEENT: Atraumatic; normocephalic EYES; Anicteric, Normal Conjunctiva NECK; supple, normal thyroid, RESPIRATORY: Diminished to auscultation CARDIOVASCULAR: Regular S1 S2, GI: soft, normoactive bowel sounds, : No Renal angle tenderness; EXTREMITIES: No edema, no clubbing, MUSCULOSKELETAL: no muscle wasting NEURO: Awake; no lateralizing signs. SKIN: No Rash PSYCH; Flat affect Assessment & Plan Assessment/Plan (1) Unstable angina: PLAN: Plan Patient is a 73-year-old gentleman with recent abnormal stress test who is scheduled to undergo left heart catheterization on 08/14/2023 presented to the emergency department with chest pain and assessment of unstable angina made, admitted to monitored bed for further management 1. Chest pain consistent with unstable angina ? Patient had abnormal stress test on 07/26/2023 and scheduled to undergo left heart catheterization on 08/14/2023 presented with chest pain. Cardiac enzymes have so far been negative to date treatment initiated per protocol consultation placed to cardiology plan is for patient to undergo left heart catheterization likely on 08/07/2023 2. Coronary artery disease ? With previous PCI patient remains on guideline directed medical therapy 3. Hypertension - Blood pressure controlled, home medications continued with dose adjustment as needed 4. Dyslipidemia -Patient is on statin therapy, continued at home dose 5. Gout ? Symptoms controlled on allopurinol 6. BPH with lower urinary obstructive symptoms - Patient treated with tamsulosin and finasteride 7. GERD ? Patient is on famotidine 8. Vitamin D deficiency ? Patient is on vitamin D3 supplement at home 9. Class I obesity with BMI of 31 ? Complicating care weight loss advised DVT prophylaxis ? SC Lovenox Time spent in the patient's overall evaluation,decision-making process, review of diagnostic data, adjustment of management, discussion with other providers, nursing nursing and ancillary staff involved in patient's care documentation, 52minutes Charges/Coding Visit Charges Inpatient E&M: 12873 Subs Hosp L3 08/04/23 1030 <Electronically signed by Fabio Tovar MD> Cosigner Signature (if applicable): CC: ~ Signed [facility] Work Phone: [phone]) 884-230603-09-2024 Discharge summary Author Alethea Jackson [facility] August 04, 2023 12:25am Note Date/Time August 03, 2023 3:19 pm [facility] Medical Records Department [address] [place] [address] Emergency Department Summary 08/03/23 MR#: [id number] Acct: [id number] Name: SEBASTIEN OWENS Rep #:[id number] : 1950 73 From: Alethea Nova PCP: Dr. Afua Velez, DO Status:ADM IN Location: [place] [address] HPI History of Present Illness Chief Complaint: Chest Pain Informant: patient Narrative Narrative: Patient is a 73-year-old male with history of coronary artery disease and STEMI,GERD, BPH, dementia, hypertension and ongoing chest pain (scheduled to have cardiac catheterization on 08/13) presenting with severe worsening of his chest pain. Patient states that around 145 this afternoon he suddenly had a sharp pain in the center of his chest. Denies any radiation. No to look in the mirror and he was pale as a ghost. Denies any diaphoresis or swelling. Does have some mild associated shortness of breath or like he could not breathe right. This feels different than the ongoing chest pain has been dealing with. He received 1 nitro and route which did cause a headache but it did also help with his chest pain however the chest pain has resumed. He also received 325 mgof aspirin and route via EMS. Notes he does been having ongoing GI issues and is chronically constipated with his last bowel movement 3 days ago. Denies abdominal pain at this time. Denies any ripping or tearing pain. Denies any numbness to his extremities. Patient notes he is also scheduled to have a scopedone for this going GI issues couple weeks after his cath. Chart view shows that patient has a stress test on which showed occasional PVCs, basilar lateral defect stress of prior basal lateral infarct with mild to moderate yvette-infarct ischemia and no ischemic changes with peak physiologic EKG. Heart cath secondary to NSTEMI in 2018 with status post PCI to proximal left circumflex. [facility] Medical History (Updated 08/04/23 @ 00:[address] Alethea Jackson, ) Alcoholism Anemia Anxiety Atherosclerosis of coronary artery without angina pectoris Back pain BiPAP (biphasic positive airway pressure) dependence Chronic pain Coronary artery disease Dementia Depression Essential (primary) hypertension GI hemorrhage Gout History of stress test Hyperlipidemia Hypertension Myocardial infarct Non-smoker NSTEMI (non-ST elevated myocardial infarction) (04/13/18) Obesity Pancreatitis Pulmonary embolism Rheumatoid arthritis Sleep apnea Traumatic brain injury Unstable angina Home Medications allopurinol 100 mg tablet 200 mg PO QHS gout 11/07/20 [History Last Taken 08/02/23] aspirin 81 mg chewable tablet 81 mg PO DAILY thinner 11/07/20 [History Last Taken 08/03/23] cholecalciferol (vitamin D3) 125 mcg (5,000 unit) tablet 50,000 unit PO WE supplement 11/07/20 [History Last Taken 08/01/23] colchicine 0.6 mg tablet (Colcrys) 0.6 mg PO PRN gout 11/07/20 [History Last Taken Unknown] finasteride 5 mg tablet 5 mg PO QHS urine retention 11/07/20 [History Last Taken 08/02/23] tamsulosin 0.4 mg capsule 0.4 mg PO QHS urinary retention 11/07/20 [History Last Taken 08/02/23] alprazolam 0.5 mg tablet (Xanax) 0.25 mg PO .COMPLEX anxiety 11/09/20 [History Last Taken 08/03/23 09:00] nitroglycerin 0.4 mg sublingual tablet 0.4 mg sublingual Q5M PRN Cardiac/Chest Pain #0 tabs 11/09/20 [Rx Last Taken Unknown] acetaminophen 500 mg tablet 1,000 mg (2 x 500 mg) PO Q6H PRN PRN Pain Score 1-3 #0 tabs 11/15/20 [Rx Last Taken Unknown] pantoprazole 40 mg tablet,delayed release 40 mg PO BID indigestion 01/11/23 [History Last Taken 08/03/23 10:00] metoprolol tartrate 25 mg tablet 25 mg PO BID #180 tabs 04/26/23 [Rx Last Taken 08/03/23 10:00] famotidine 40 mg tablet 40 mg PO BID 06/14/23 [History Last Taken 08/03/23 10:00] ondansetron 4 mg disintegrating tablet 4 mg PO Q8-12H PRN nausea 06/14/23 [History Last Taken 08/03/23] rosuvastatin 10 mg tablet 10 mg PO QHS 06/14/23 [History Last Taken 08/02/23] amlodipine 5 mg tablet 5 mg PO QHS 08/03/23 [History Last Taken 08/02/23] levofloxacin 500 mg tablet 500 mg PO Q24H 08/03/23 [History Last Taken 08/03/23] oxybutynin chloride 10 mg tablet,extended release 24 hr 10 mg PO QHS 08/03/23 [History Last Taken 08/02/23] Allergy/AdvReac Type Severity Reaction Status Date / Time isosorbide AdvReac Mild Headache Verified 08/03/23 14:46 Family History Mother CAD (coronary artery disease) Surgical History History of coronary artery stent placement (04/13/18) History of knee surgery History of repair of rotator cuff Hx of cholecystectomy Social History household members: spouse Smoking Status: Never smoker alcohol intake: former details: Sober since 2010. substance use type: does not use ROS ROS ED Constitutional Constitutional ED: Denies chills or fever(s) ENT ENT ED: Denies rhinorrhea Cardiovascular Cardiovascular: Reports as per HPI and chest pain Respiratory/Chest Respiratory/Chest: Reports dyspnea; Denies cough Gastrointestinal Gastrointestinal: Reports constipation; Denies abdominal pain, nausea or vomiting Genitourinary Genitourinary ED: Denies dysuria Integumentary Denies rash Neurologic Neurologic: Reports headache(s); Denies paresthesias or weakness Hematologic/Lymphatic Hematologic/Lymphatic: Denies easy bleeding or easy bruising EXAM Physical Exam Const Vital Signs: 08/03/23 14:46 08/03/23 14:52 08/03/23 15:10 Temperature 97.6 F L Temperature Source Temporal Pulse Rate 91 Respiratory Rate 18 Respiratory Effort Normal Blood Pressure Blood Pressure Mean Pulse Ox 96 Oxygen Delivery Method Room Air Nasal Cannula Oxygen Flow Rate (L/min) 2 08/03/23 15:14 08/03/23 15:15 08/03/23 16:00 Temperature Temperature Source Pulse Rate 85 80 68 Respiratory Rate 19 H 18 Respiratory Effort Blood Pressure 145/97 H 108/54 L 118/69 Blood Pressure Mean 71 85 Pulse Ox 98 96 Oxygen Delivery Method Oxygen Flow Rate (L/min) 08/03/23 17:00 08/03/23 18:00 08/03/23 18:33 Temperature 98 F Temperature Source Pulse Rate 75 74 75 Respiratory Rate 24 H 23 H 18 Respiratory Effort Blood Pressure 110/74 Blood Pressure Mean 86 Pulse Ox 97 93 96 Oxygen Delivery Method Oxygen Flow Rate (L/min) Positive well nourished and well developed General Appearance ED: well developed, NAD and pallor HEENT Reports moist mucous membranes Eyes PERRL and EOMs intact bilaterally Neck supple and no JVD Chest Wall inspection of chest normal and palpation of chest normal Resp normal respiratory effort and clear to auscultation bilaterally Cardio regular rate, regular rhythm and no murmurs Peripheral Pulses: pulses 2+ throughout GI normal to inspection, nondistended, normoactive bowel sounds and soft to palpation Extremity normal to inspection General Extremety ED: Negative for edema General Extremity: Negative for edema Neuro oriented x3 Sensorium / Orientation: awake Motor Exam: Negative for general weakness Psych mental status grossly normal Skin no rashes or lesions noted General Skin Exam: pallor Heart Score History: Highly Suspicious ECG: Normal Age: >/= 65 years Risk Factors: >/= 3 Risk Factors or History of CAD Troponin: </= Normal Limit Score: 6 MDM MDM MDM Narrative Medical decision making narrative: Patient presents for recurrent chest pain. Upon arrival patient is pale and 3 multiple PVCs on telemetry. He had improvement of pain with nitroglycerin and isgiven Nitropaste as well as Tylenol for headache. Patient is mildly hypertensive in the emergency room. Is on his baseline oxygen of 2 L. I since 2 troponins are stable at 21 and 23 respectively. Chest x-rays not show any acute process. EKG shows frequent PVCs but no acute ischemic changes. Patient does not have any respiratory symptoms and I have a low suspicion for pulmonary emboli. In addition he does not have any new O2 demands or tachypnea. He is not tachycardic. Given his history of coronary artery disease and plan for cardiac catheterization in 10 days with worsening chest pain I did discuss the case withcardiology on-call, Dr. Rodriguez. Discussed that likely patient would not requirean emergent cath over the weekend but given his PVCs intermittently on bigeminy pattern, the story and his overall condition when he came in would be prudent tokeep him in the hospital over the weekend to monitor him from a cardiac standpoint and then possibly arrange for cath on Sunday. Patient and are informed of this and that the likely will have to wait over the weekend for any intervention is done and intervention is not guaranteed. They understand and feel unsafe going home as well. Patient received aspirin en route via EMS. I do not think indication for heparin drip at this time. Lab Data Attestation: I reviewed the patient's lab results. Labs: Laboratory Results - last 24 hr 08/03/23 08/03/23 15:09 17:20 WBC 10.1 RBC 4.36 L Hgb 13.5 Hct 40.9 MCV 93.8 MCH 31.0 MCHC 33.0 RDW Std Deviation 44.4 H RDW Coeff of Leeann 13.0 Plt Count 184 MPV 10.2 Immature Gran % (Auto) 1.700 H Neut % (Auto) 57.5 Lymph % (Auto) 29.0 Glades % (Auto) 8.9 Eos % (Auto) 2.2 Baso % (Auto) 0.7 Absolute Neuts (auto) 5.8 Absolute Lymphs (auto) 2.92 Nucleated RBC % 0 PT 12.6 INR 0.9 APTT 32.8 Sodium 143 Potassium 4.0 Chloride 115 H Carbon Dioxide 18.0 L Anion Gap 10 BUN 20 H Creatinine 1.24 Estim Creat Clear Calc 55.86 Est GFR (MDRD) Af Amer 74 Est GFR (MDRD) Non-Af 61 BUN/Creatinine Ratio 16.1 Glucose 88 Calcium 9.0 Magnesium 2.3 Total Bilirubin 0.30 AST 22 ALT 27 Alkaline Phosphatase 65 Troponin I High Sens 21 23 Total Protein 7.1 Albumin 3.8 Globulin 3.3 Albumin/Globulin Ratio 1.2 Lipase 61 Radiography Chest X-Ray - ED: 1 View, Read by ED Physician, Read by Radiologist and No AcuteDisease Diagnostic Testing: Clinical Impression(s) from Imaging Studies Chest X-Ray 08/03/23 15:10 IMPRESSION: No significant interval change. Electronically Signed: Monica Santizo MD at 15:28 EST , Rhythm Strip Rhythm Strip: Sinus Rhythm Rate: 86 Ectopy: PVC(s) EKG Initial EKG: Attestation: I personally reviewed and interpreted this EKG as follows: Interpretation: Sinus Rhythm Comments: Normal sinus rhythm rate of 86 bpm Left axis deviation Normal ST segments and intervals Frequent PVCs present which are new compared to prior EKG Discharge Plan Dx/Rx/DC Orders Clinical Impression: Chest pain, Essential (primary) hypertension, Multifocal PVCs with pairing, CADS/P percutaneous coronary angioplasty Disposition Disposition: Acute Care Hospital [facility] Discharge Date/Time: 08/03/23 20:14 What to do if you have Problems For any increased pain, shortness of breath, bleeding, nausea or vomiting, chestpain, or any unexpected problems, contact your Primary Care Provider. Call [facility] ([phone]) or report to the closest Emergency Room. Call 911 if necessary. 08/04/23 0025 <Electronically signed by Alethea Jackson DO> Cosigner Signature (if applicable): CC: Dr. Afua Velez DO ~ Signed [facility] Work Phone: [phone]) 643-664303-08-2024 History and physical note Author [facility] August 03, 2023 7:34pm Note Date/Time August 03, 2023 6:39 pm [facility] Medical Records Department [address] [place] [address] History & Physical Exam 08/03/23 1828 MR#: [id number] Acct: [id number] Name: SEBASTIEN OWENS Rep #:[id number] : 1950 73 From: Mechelle Marquez MD PCP: Dr. Afua Velez DO Status:ADM IN Location: [facility] [id number] HPI - General General Date of Admission: 08/03/23 Date of Service: 08/03/23 Chief Complaint: chest pain HPI Narrative SEBASTIEN OWENS, is a 73 M with a PMH as outlined who who presents via the ED on 08/03/2023 with a complaint of chest pain. 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 However, he started having severe chest pain this afternoon at around 13:45. He denied any lightheadedness or dizziness,and admitted to a headache. He denied any shortness of breath. Review of systemsis otherwise negative. He also said he had been having ongoing GI issues, with chronic constipation and has been scheduled to have a GI scope after his cath. He had had a stress test on 07/26/2023 which showed mild to moderate yvette infarctischemia and no ischemic changes. VItals in the ED were temp of 97.6F, W[place] of 74, BP of 118/69 and RR of 23. He wassaturating at 93% on 2L of oxygen. CBC was largely unremarkable, and BMP showed bicarb of 18 with anion gap of 10. Troponin and its delta were both negative. EKG showed PVCs but no acute ST changes. He is being admitted to be managed for unstable angina. FORMERLY [facility], 1928–1983 Medical History (Updated 08/03/23 @ 18:[address] Mechelle Marquez MD) Alcoholism Anemia Anxiety Atherosclerosis of coronary artery without angina pectoris Back pain BiPAP (biphasic positive airway pressure) dependence Chronic pain Coronary artery disease Dementia Depression Essential (primary) hypertension GI hemorrhage Gout History of stress test Hyperlipidemia Hypertension Myocardial infarct Non-smoker NSTEMI (non-ST elevated myocardial infarction) (04/13/18) Obesity Pancreatitis Pulmonary embolism Rheumatoid arthritis Sleep apnea Traumatic brain injury Unstable angina Home Medications allopurinol 100 mg tablet 200 mg PO QHS gout 11/07/20 [History Last Taken 08/02/23] aspirin 81 mg chewable tablet 81 mg PO DAILY thinner 11/07/20 [History Last Taken 08/03/23] cholecalciferol (vitamin D3) 125 mcg (5,000 unit) tablet 50,000 unit PO WE supplement 11/07/20 [History Last Taken 08/01/23] colchicine 0.6 mg tablet (Colcrys) 0.6 mg PO PRN gout 11/07/20 [History Last Taken Unknown] finasteride 5 mg tablet 5 mg PO QHS urine retention 11/07/20 [History Last Taken 08/02/23] tamsulosin 0.4 mg capsule 0.4 mg PO QHS urinary retention 11/07/20 [History Last Taken 08/02/23] alprazolam 0.5 mg tablet (Xanax) 0.25 mg PO .COMPLEX anxiety 11/09/20 [History Last Taken 08/03/23 09:00] nitroglycerin 0.4 mg sublingual tablet 0.4 mg sublingual Q5M PRN Cardiac/Chest Pain #0 tabs 11/09/20 [Rx Last Taken Unknown] acetaminophen 500 mg tablet 1,000 mg (2 x 500 mg) PO Q6H PRN PRN Pain Score 1-3 #0 tabs 11/15/20 [Rx Last Taken Unknown] pantoprazole 40 mg tablet,delayed release 40 mg PO BID indigestion 01/11/23 [History Last Taken 08/03/23 10:00] metoprolol tartrate 25 mg tablet 25 mg PO BID #180 tabs 04/26/23 [Rx Last Taken 08/03/23 10:00] famotidine 40 mg tablet 40 mg PO BID 06/14/23 [History Last Taken 08/03/23 10:00] ondansetron 4 mg disintegrating tablet 4 mg PO Q8-12H PRN nausea 06/14/23 [History Last Taken 08/03/23] rosuvastatin 10 mg tablet 10 mg PO QHS 06/14/23 [History Last Taken 08/02/23] amlodipine 5 mg tablet 5 mg PO QHS 08/03/23 [History Last Taken 08/02/23] levofloxacin 500 mg tablet 500 mg PO Q24H 08/03/23 [History Last Taken 08/03/23] oxybutynin chloride 10 mg tablet,extended release 24 hr 10 mg PO QHS 08/03/23 [History Last Taken 08/02/23] Allergy/AdvReac Type Severity Reaction Status Date / Time isosorbide AdvReac Mild Headache Verified 08/03/23 14:46 Family History Mother CAD (coronary artery disease) Surgical History History of coronary artery stent placement (04/13/18) History of knee surgery History of repair of rotator cuff Hx of cholecystectomy Social History household members: spouse Smoking Status: Never smoker alcohol intake: former details: Sober since 2010. substance use type: does not use ROS Review of Systems ROS Unobtainable: Denies due to encephalopathy Constitutional Constitutional: Reports fatigue and malaise; Denies anorexia, chills, fever(s) or weakness Eyes Eyes: Denies change in vision ENT HEENT: Denies dysphagia or headache(s) Cardiovascular Cardiovascular: Reports chest pain; Denies edema, orthopnea, palpitations, paroxysmal nocturnal dyspnea or syncope Respiratory/Chest Respiratory/Chest: Denies cough, shortness of breath at rest or shortness of breath with exertion Gastrointestinal Gastrointestinal: Denies abdominal pain, nausea or vomiting Genitourinary Genitourinary: Denies dysuria Musculoskeletal Musculoskeletal: Denies back pain Neurologic Neurologic: Denies confusion, dizziness, focal weakness, headache(s), numbness, seizures or weakness Psychiatric Psychiatric: Denies anxiety Vital Signs Vital Signs Vital Signs: 08/03/23 14:46 08/03/23 14:52 08/03/23 15:10 Temperature 97.6 F L Temperature Source Temporal Pulse Rate 91 Respiratory Rate 18 Respiratory Effort Normal Blood Pressure Blood Pressure Mean Pulse Ox 96 Oxygen Delivery Method Room Air Nasal Cannula Oxygen Flow Rate (L/min) 2 08/03/23 15:14 08/03/23 15:15 08/03/23 16:00 Temperature Temperature Source Pulse Rate 85 80 68 Respiratory Rate 19 H 18 Respiratory Effort Blood Pressure 145/97 H 108/54 L 118/69 Blood Pressure Mean 71 85 Pulse Ox 98 96 Oxygen Delivery Method Oxygen Flow Rate (L/min) 08/03/23 17:00 08/03/23 18:00 Temperature Temperature Source Pulse Rate 75 74 Respiratory Rate 24 H 23 H Respiratory Effort Blood Pressure Blood Pressure Mean Pulse Ox 97 93 Oxygen Delivery Method Oxygen Flow Rate (L/min) Weight Weight: 199 lb 4.766 oz Body Mass Index (BMI) 32.1 Physical Exam Const alert, oriented x3, no apparent distress and well nourished General Appearance: cooperative and well developed HEENT normocephalic, head/scalp atraumatic and moist oral mucous membranes Eyes PERRL and EOMs intact bilaterally Neck no lymphadenopathy and supple Lymph Lymphatic: no lymphadenopathy noted and no lymphedema noted Resp normal respiratory effort, normal air movement and clear to auscultation bilaterally Cardio regular rate, regular rhythm, S1 normal heart sound, S2 normal heart sound and no murmurs GI normal to inspection, nondistended, normoactive bowel sounds, soft to palpation and non-tender Extremity normal capillary refill, no clubbing, cyanosis or edema and no calf tenderness General Extremity: no tenderness to palpation of joints or extremities Skin General Skin Exam: no breakdown and turgor normal Neuro CN's II-XII intact bilaterally, no focal motor deficits and no sensory deficits noted Motor Exam: strength 5/5 throughout and general weakness Psych thought process normal and cooperative Appearance: appropriate Results Lab / Micro Data 08/03/23 15:09 08/03/23 15:09 Labs: Laboratory Results - last 24 hr 08/03/23 15:09: WBC 10.1, RBC 4.36 L, Hgb 13.5, Hct 40.9, MCV 93.8, MCH 31.0, MCHC 33.0, RDW Std Deviation 44.4 H, RDW Coeff of Leeann 13.0, Plt Count 184, MPV 10.2, Immature Gran % (Auto) 1.700 H, Neut % (Auto) 57.5, Lymph % (Auto) 29.0, Glades % (Auto) 8.9, Eos % (Auto) 2.2, Baso % (Auto) 0.7, Absolute Neuts (auto) 5.8, Absolute Lymphs (auto) 2.92, Nucleated RBC % 0, PT 12.6, INR 0.9, APTT 32.8, Sodium 143, Potassium 4.0, Chloride 115 H, Carbon Dioxide 18.0 L, Anion Gap 10, BUN 20 H, Creatinine 1.24, Estim Creat Clear Calc 55.86, Est GFR (MDRD) Af Amer 74, Est GFR (MDRD) Non-Af 61, BUN/Creatinine Ratio 16.1, Glucose 88, Calcium 9.0, Magnesium 2.3, Total Bilirubin 0.30, AST 22, ALT 27, Alkaline Phosphatase 65, Troponin I High Sens 21, Total Protein 7.1, Albumin 3.8, Globulin 3.3, Albumin/Globulin Ratio 1.2, Lipase 61 08/03/23 17:20: Troponin I High Sens 23 Rhythm Strip Rhythm Strip: Sinus Rhythm Rate: 86 Ectopy: PVC(s) Imaging Radiology Impression Chest X-Ray 08/03/23 15:10 IMPRESSION: No significant interval change. Electronically Signed: Monica Santizo MD at 15:28 EST Reading Location ID and State: [facility] / [place] Tel , Service support , Assessment & Plan Assessment/Plan (1) Unstable angina: PLAN: Plan #Chest pain in the setting of unstable angina * admit to PCU * had an abnormal stress test at the end of June 2023. Is scheduled to have a cardiac cath on 08/14/2023. * However he woke up with chest pain today which was pressure-like and relentless. * EKG shows PVCs but no acute ST changes. * Troponins x 2 are negative. * Consult cardiology. P.o. aspirin, sublingual nitroglycerin as needed * Continue metoprolol and high intensity statin. Consult cardiology for likely cath on Sunday unless he deteriorates over the weekend. * * #CAD s/p stents * On aspirin, high intensity statin and metoprolol. #Hypertension: On metoprolol and amlodipine. #BPH: On Flomax and finasteride. DVT prophylaxis: Lovenox COde status: full code * Patient counseled extensively about different types of CODE STATUS including full code, DNR CCA and DNR CCA. Patient elects to be full code. Total [id number] time 16 minutes. Charges/Coding Visit Charges Inpatient E&M: 43525 Init Hosp L3 Procedures Hospitalists Procedures: 17309 Advncd Care Plan 30 Min 08/03/231933 <Electronically signed by Mechelle Marquez MD> Cosigner Signature (if applicable): CC: Dr. Afua Velez DO; Dr. Mechelle Marquez MD~ Signed [facility] Work Phone: 1(460) 427-789202-22-2024 Telephone encounter Note* Telephone Encounter - Hellen Jones - 07/19/2023 2:37 PM EST 09/03/2023 COLON/EGD DIAG [place] PATIENT ON WAITLIST FOR [facility] IN [place] ONLY Hellen Jones Vp Platforms end [facility]02-16-2024 History of Present illness Narrative* Thi Plascencia, RT(R) - 07/13/2023 4:20 PM EST Radiology Service Progress Note PATIENT NAME: Sebastien Owens DATE OF SERVICE: July 13, 2023 TIME: 4:19 PM PATIENT IDENTITY VERIFICATION COMPLETED USING TWO (2) IDENTIFIERS: Name and Date of confirmedby patient verbally. FALL SCREENING: Has the patient had 2 falls in the last year or 1 fall with injury or currently using an Ambulatory Assistive Device (Walker, Cane, Wheelchair, Crutches, etc.)? No PATIENT GENDER DATA: Male PATIENT RELEVANT IMPLANT DATA REVIEWED: Not Applicable PATIENT PRESENTS WITH AN IMPLANTABLE OR ATTACHED CANDY CATCHER: No RADIOLOGY DEPARTMENT: General X-ray: Exam(s) Completed: Abdomen X-Ray: Abdomen PERIPHERAL IV DATA: Not applicable SIGNED BY: RT Long(R) July 13, 2023 4:19 PM documented in this [facility] History of Present illness Narrative* Stanley Sandoval MD - 07/13/2023 3:50 PM EST 07/13/2023 Sebastien Owens [id number] SURGEON: Dr. Sandoval PRIMARY DIAGNOSIS: Nausea, Bloating, Constipation HPI: Sebastien Owens is a 73 year old male patient that presents today with worsening nausea, bloating,and constipation. He reports that over the past few months he has experienced significant bloating,belching, and nausea. The symptoms occur randomly, and are not associated with eating. He denies dry heaving or vomiting. He also endorses significant constipation requiring the use of epsom salts and MoM for bowel regimen. He reports manually disimpacting himself regularly. Denies hematochezia or melena. 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 RESP: patient denies a history of any respiratory problems. CARD: HX of cardiac stents and AK. GI: Endorses GERD and hx of bleeding [...] C (97.8 F) Ht 167.6 cm (5' 6) Wt 86.9 kg(191 lb 9.6 oz) SpO2 96% BMI 30.93 kg/m GENERAL: Well appearing, alert, in no acute distress, well-hydrated, well nourished. CARDIAC: Rate: normal LUNGS: Lungs clear to auscultation. No wheezing, rhonchi, rales. ABDOMEN: Soft, non-tender to palpation IMPRESSION: Sebastien Owens is a 73 year old male with worsening nausea, bloating, and constipation. Last EGD/colonoscopy was Jun 2021. EGD showed gastritis with non-severe reflux esophagitis. Colonoscopy had poor prep, but was otherwise normal. PLAN: -Schedule for EGD/Colonoscopy at [place] with MAC anesthesia -2 day golytely prep Mishel Mckeon, General Surgery PGY5 I saw and evaluated the patient. Discussed with the resident and agree with resident's findings andplan as documented in the resident's note. Stanley Sandoval MD documented in this [facility] Nurse Note* Pratibha ParsonsCARLOS - 07/13/2023 3:25 PM EST REVIEW OF SYSTEMS: General: The patient notes fatigue, denies weight loss, denies weight gain, denies feeling hot, andnotes feelings of cold. Eyes: The patient denies [...] 2021 Pratibha Parsons LPN documented in this [facility]Mer[facility]2023 Miscellaneous Notes* Telephone Encounter - Pratibha aPrsons LPN - 04/13/2023 1:24 PM EST Patient called back again asking for pain medication for patient, post surgery from yesterday,trigger finger. Please send to [facility]. Patient would like to contacted via phone or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 shoulder which he has had problems with even before. When patient woke up from his syncopal episode he had some chest pressure. Patient has history of coronary artery disease status post AK x3. First episode was about 10 years ago. Patient apparently had stents every time. He does not recall how many he has total. He states that he was told that he is running out of options as far as stents are concerned and also has a stent within the stent. We do not have details of these procedures. Prior to getting PCI patient has always had chest pressure. Except right after his syncopal episode he has not had chest pressure. He says he does get shortness of breath with exertion. Patient's 3 sets of cardiac enzymes have been negative. Patient's creatinine was slightly elevated upon arrival which has come down to his baseline after IV fluids. Orthostatic blood pressure measurements were negative for significant orthostatic hypotension. Review of systems: All systems reviewed. All else is negative except that in HPI [facility] Medical History Alcoholism Anemia Anxiety Atherosclerosis of coronary artery without angina pectoris Back pain BiPAP (biphasic positive airway pressure) dependence Chronic pain Coronary artery disease Dementia Depression Essential (primary) hypertension GI hemorrhage Gout History of stress test Hyperlipidemia Hypertension Myocardial infarct Non-smoker NSTEMI (non-ST elevated myocardial infarction) (04/13/18) Obesity Pancreatitis Pulmonary embolism Rheumatoid arthritis Sleep apnea Traumatic brain injury Home Medications allopurinol 100 mg tablet 100 mg PO BID gout 11/07/20 [History Last Taken 08/27/22] aspirin 81 mg chewable tablet 81 mg PO DAILY thinner 11/07/20 [History Last Taken 08/28/22] cholecalciferol (vitamin D3) 125 mcg (5,000 unit) tablet 125 mcg PO DAILY supplement 11/07/20 [History Last Taken 08/23/22] colchicine 0.6 mg tablet (Colcrys) 0.6 mg PO BID gout 11/07/20 [History Last Taken Unknown] finasteride 5 mg tablet 5 mg PO QHS urine retention 11/07/20 [History Last Taken 08/27/22] tamsulosin 0.4 mg capsule 0.4 mg PO BID urinary retention 11/07/20 [History Last Taken 08/27/22] alprazolam 0.5 mg tablet (Xanax) 0.5 mg PO BID anxiety 11/09/20 [History Last Taken 08/27/22] nitroglycerin 0.4 mg sublingual tablet 0.4 mg sublingual Q5M PRN Cardiac/Chest Pain #0 tabs 11/09/20 [Rx Last Taken Unknown] acetaminophen 500 mg tablet 1,000 mg PO Q6H PRN PRN Pain Score 1-3 #0 tabs 11/15/20 [Rx Last Taken Unknown] omeprazole 20 mg capsule,delayed release 20 mg PO BID GERD 08/28/22 [History Last Taken 08/27/22] Allergy/AdvReac Type Severity Reaction Status Date / Time No Known Allergies Allergy Verified 08/10/20 15:50 Family History Mother CAD (coronary artery disease) Family History other Surgical History History of coronary artery stent placement (04/13/18) History of knee surgery History of repair of rotator cuff Hx of cholecystectomy Social History (Updated 08/28/22 @ 15:[address] Rosey England MD) household members: spouse Smoking Status: Never smoker alcohol intake: former details: Sober since 2010. substance use type: does not use Physical Exam Const alert and oriented x3 HEENT normocephalic Eyes no scleral icterus Resp normal respiratory effort Cardio regular rate Skin no rashes or lesions noted Psych mental status grossly normal Risk Stratification Risk Stratification Applicable: No Charges/Coding Visit Charges Inpatient E&M: 39278 Init Hosp L2 Objective Data Vital Signs: Vital Signs Temp Pulse Resp BP Pulse Ox O2 Del Method O2 Flow Rate 97.4 F L 83 18 159/68 H 99 Room Air 2 08/29/22 04:00 08/29/22 05:39 08/29/22 04:00 08/29/22 05:39 08/29/22 08:24 08/29/22 08:24 08/28/22 16:00 Oxygen Flow Rate (L/min) 2 Oxygen Delivery Method Room Air Weight: 192 lb 10.944 oz Body Mass Index (BMI) 31.1 Intake & Output: Intake and Output for Last 24 Hours 08/27/22 08/28/22 08/29/22 23:59 23:59 23:59 Intake Total 1099.8 / 1099.8 Balance 1099.8 / 1099.8 Lab / Micro Data Result Diagrams: 08/29/22 09:28 08/29/22 09:28 Labs: Laboratory Results - last 24 hr 08/28/22 13:25: WBC 8.2, RBC 4.05 L, Hgb 13.3, Hct 38.0 L, MCV 93.8, MCH 32.8 H,MCHC 35.0, RDW Std Deviation 44.6 H, RDW Coeff of Leeann 12.9, Plt Count 180, MPV 10.1, Immature Gran % (Auto) 0.900, Neut % (Auto) 57.4, Lymph % (Auto) 30.5, [place] % (Auto) 8.6, Eos % (Auto) 2.1, Baso % (Auto) 0.5, Absolute Neuts (auto) 4.7, Absolute Lymphs (auto) 2.51, Nucleated RBC % 0 08/28/22 13:25: Sodium 142, Potassium 3.7, Chloride 110 H, Carbon Dioxide 27.0, Anion Gap 5, BUN 26 H, Creatinine 1.34 H, Estim Creat Clear Calc 44.97, Est GFR (MDRD) Af Amer 67, Est GFR (MDRD) Non-Af 56 L, BUN/Creatinine Ratio 19.4, Glucose 87, Calcium 9.5, Troponin I High Sens 27 08/28/22 13:25: D-Dimer Quant (PE/DVT) 0.55 H* 08/28/22 13:25: PT 12.5, INR 1.0, APTT 26.0 08/28/22 15:00: Phosphorus 2.2 L, Magnesium 2.0 08/28/22 15:00: Ethyl Alcohol < 3.0 08/28/22 16:04: Troponin I High Sens 38 08/28/22 19:22: Troponin I High Sens 42 08/28/22 23:30: APTT 140.0 H* 08/29/22 09:28: WBC 7.2, RBC 4.41 L, Hgb 14.3, Hct 42.5, MCV 96.4 H, MCH 32.4 H,MCHC 33.6, RDW Std Deviation 46.0 H, RDW Coeff of Leeann 12.9, Plt Count 153, MPV 9.5, Immature Gran % (Auto) 1.000 H, Neut % (Auto) 56.6, Lymph % (Auto) 29.7, [place] % (Auto) 9.0, Eos % (Auto) 2.9, Baso % (Auto) 0.8, Absolute Neuts (auto) 4.1, Absolute Lymphs (auto) 2.15, Nucleated RBC % 0 08/29/22 09:28: Sodium 139, Potassium 3.5, Chloride 109 H, Carbon Dioxide 27.0, Anion Gap 3 L, BUN 20 H, Creatinine 1.11, Estim Creat Clear Calc 54.28, Est GFR (MDRD) Af Amer 84, Est GFR (MDRD) Non-Af 69, BUN/Creatinine Ratio 18.0, Glucose 100, Calcium 9.2, Total Bilirubin 0.50, AST 23, ALT 24, Alkaline Phosphatase 59,Total Protein 7.0, Albumin 3.8, Globulin 3.2, Albumin/Globulin Ratio 1.2 08/29/22 09:28: APTT 65.5 H Rhythm Strip Rhythm Strip: Sinus Rhythm Rate: 70 Ectopy: None Cardiology Labs/Tests 08/28/22 13:25: WBC 8.2, RBC 4.05 L, Hgb 13.3, Hct 38.0 L, MCV 93.8, MCH 32.8 H,MCHC 35.0, Plt Count 180, MPV 10.1, Immature Gran % (Auto) 0.900, Neut % (Auto) 57.4, Lymph % (Auto) 30.5, [place] % (Auto) 8.6, Eos % (Auto) 2.1, Baso % (Auto) 0.5, Absolute Neuts (auto) 4.7, Nucleated RBC % 0 08/28/22 13:25: Sodium 142, Potassium 3.7, Chloride 110 H, Carbon Dioxide 27.0, Anion Gap 5, BUN 26 H, Creatinine 1.34 H, Est GFR (MDRD) Af Amer 67, Est GFR (MDRD) Non-Af 56 L, BUN/Creatinine Ratio 19.4, Glucose 87, Calcium 9.5 08/28/22 13:25: D-Dimer Quant (PE/DVT) 0.55 H* 08/28/22 13:25: PT 12.5, INR 1.0, APTT 26.0 08/28/22 15:00: Phosphorus 2.2 L, Magnesium 2.0 08/28/22 23:30: APTT 140.0 H* 08/29/22 09:28: WBC 7.2, RBC 4.41 L, Hgb 14.3, Hct 42.5, MCV 96.4 H, MCH 32.4 H,MCHC 33.6, Plt Count 153, MPV 9.5, Immature Gran % (Auto) 1.000 H, Neut % (Auto)56.6, Lymph % (Auto) 29.7, [place] % (Auto) 9.0, Eos % (Auto) 2.9, Baso % (Auto) 0.8, Absolute Neuts (auto) 4.1, Nucleated RBC % 0 08/29/22 09:28: Sodium 139, Potassium 3.5, Chloride 109 H, Carbon Dioxide 27.0, Anion Gap 3 L, BUN 20 H, Creatinine 1.11, Est GFR (MDRD) Af Amer 84, Est GFR (MDRD) Non-Af 69, BUN/Creatinine Ratio 18.0, Glucose 100, Calcium 9.2, Total Bilirubin 0.50 08/29/22 09:28: APTT 65.5 H Rhythm: EKG: ECHO: Stress Test: Cardiac Cath: PCI: CT Surgery: Holter monitor: EPS: PPM: CXR: Chest CT Scan: Radiography Diagnostic Testing: Radiology Impression Chest X-Ray 08/28/22 14:10 IMPRESSION: Hyperinflation. The lungs are clear. Electronically Signed: Haider Cleaning MD at 14:39 EDT , Shoulder X-Ray 08/28/22 14:10 IMPRESSION: Moderate degree of osteoarthritis of the glenohumeral joint. Electronically Signed: Haider Cleaning MD at 14:40 EDT , 08/29/22 1059 <Electronically signed by Nabil Salcedo MD> Cosigner Signature (if applicable): CC: Dr. Rosey England MD; Dr. Afua Velez DO; Dr. Nabil Salcedo MD~ Signed [facility] Work Phone: [phone]) [phone] Umaña [facility] August 28, 2022 5:06pm Note Date/Time August 28, 2022 2:21 pm [facility] Medical Records Department [address] [place] [address] Emergency Department Summary 08/28/22 MR#: [id number] Acct: [id number] Name: SEBASTIEN OWENS Rep #:[id number] : 1950 72 From: Van Umaña MD PCP: Dr. Afua Rosie, DO Status:ADM SENDY Location: [facility] [id number]- [id number] HPI History of Present Illness Chief Complaint: Chest Pain Informant: patient Narrative Narrative: This patient is a sedentary 72-year-old with a history of heart disease and stents, he was out raking leaves and doing yard work today because it was nice outside, and he states he remembers feeling lightheaded and then waking up on the ground after passing out collapsing, and he noticed chest heaviness and somemild dyspnea at that time does not remember having that before passing out. States he fell onto his left shoulder he thinks, and injured that, he had a remote rotator cuff repair and he is concerned that he could have damaged it. He denies any other pain or injury. He denies any radiation of the chest discomfort. No nausea or vomiting. No recent illness except for 2 or 3 months ago he had COVID and recovered uneventfully from that. [facility] Medical History Alcoholism Anemia Anxiety Atherosclerosis of coronary artery without angina pectoris Back pain BiPAP (biphasic positive airway pressure) dependence Chronic pain Coronary artery disease Dementia Depression Essential (primary) hypertension GI hemorrhage Gout History of stress test Hyperlipidemia Hypertension Myocardial infarct Non-smoker NSTEMI (non-ST elevated myocardial infarction) (04/13/18) Obesity Pancreatitis Pulmonary embolism Rheumatoid arthritis Sleep apnea Traumatic brain injury Home Medications allopurinol 100 mg tablet 50 mg PO DAILY gout 11/07/20 [History Last Taken Unknown] aspirin 81 mg chewable tablet 81 mg PO DAILY thinner 11/07/20 [History Last Taken Unknown] cholecalciferol (vitamin D3) 125 mcg (5,000 unit) tablet 125 mcg PO DAILY supplement 11/07/20 [History Last Taken Unknown] colchicine 0.6 mg tablet (Colcrys) 0.6 mg PO BID gout 11/07/20 [History Last Taken Unknown] finasteride 5 mg tablet 5 mg PO QHS urine retention 11/07/20 [History Last Taken Unknown] tamsulosin 0.4 mg capsule 0.4 mg PO QHS urinary retention 11/07/20 [History Last Taken Unknown] alprazolam 0.5 mg tablet (Xanax) 0.5 mg PO BID anxiety 11/09/20 [History Last Taken Unknown] nitroglycerin 0.4 mg sublingual tablet 0.4 mg sublingual Q5M PRN Cardiac/Chest Pain #0 tabs 11/09/20 [Rx Last Taken Unknown] acetaminophen 500 mg tablet 1,000 mg PO Q6H PRN PRN Pain Score 1-3 #0 tabs 11/15/20 [Rx Last Taken Unknown] omeprazole 20 mg capsule,delayed release 20 mg PO BID GERD 08/28/22 [History Last Taken 08/27/22] Allergy/AdvReac Type Severity Reaction Status Date / Time No Known Allergies Allergy Verified 08/10/20 15:50 Family History Mother CAD (coronary artery disease) Surgical History History of coronary artery stent placement (04/13/18) History of knee surgery History of repair of rotator cuff Hx of cholecystectomy Social History household members: spouse Smoking Status: Never smoker ROS ROS ED Constitutional Constitutional ED: Denies chills or fever(s) Eyes Eyes: Denies change in vision or diplopia ENT ENT ED: Denies rhinorrhea or sore throat Cardiovascular Cardiovascular: Reports chest pain; Denies palpitations Respiratory/Chest Respiratory/Chest: Reports dyspnea; Denies cough Gastrointestinal Gastrointestinal: Denies abdominal pain, diarrhea, nausea or vomiting Genitourinary Genitourinary ED: Denies dysuria or hematuria Musculoskeletal Musculoskeletal: Reports extremity pain; Denies back pain or neck pain Integumentary Denies abscess or rash Neurologic Neurologic: Denies headache(s), paresthesias or weakness Psychiatric Psychiatric: Denies anxiety or suicidal thoughts EXAM Physical Exam Const Vital Signs: 08/28/22 13:15 08/28/22 13:22 08/28/22 14:01 Temperature 97.5 F L Temperature Source Temporal Pulse Rate 76 Respiratory Rate 15 Blood Pressure 150/84 H 154/129 H Blood Pressure Mean 106 Pulse Ox 99 Oxygen Delivery Method Room Air 08/28/22 13:48 08/28/22 14:31 Temperature Temperature Source Pulse Rate 80 Respiratory Rate 16 Blood Pressure 144/78 H Blood Pressure Mean 100 Pulse Ox 98 Oxygen Delivery Method Room Air Room Air Positive well nourished and well developed General Appearance ED: well developed and NAD HEENT Reports moist mucous membranes normocephalic and atraumatic Eyes PERRL and EOMs intact bilaterally Neck full ROM and supple Resp normal respiratory effort and clear to auscultation bilaterally Cardio regular rate, regular rhythm and no murmurs GI non-tender and non-distended Auscultation: normoactive bowel sounds Palpation: soft Back/Spine no CVA tenderness General Back: other FROM Extremity normal to inspection Extremity Narrative: Tenderness left proximal humerus. No deformities. Very limited range of motiondue to pain. Neurovascular intact distally. Full range of other joints. No tenderness of the clavicle or acromioclavicular joint. General Extremety ED: Yes tenderness; Negative for edema or pulses abnormal General Extremity: Negative for edema or pulses abnormal Neuro oriented x3, CN's II-XII intact bilaterally and no sensory deficits noted Sensorium / Orientation: awake and alert Motor Exam: strength 5/5 throughout Skin no rashes or lesions noted and no wounds Heart Score History: Highly Suspicious ECG: Nonspecific Repolarization Age: >/= 65 years Risk Factors: >/= 3 Risk Factors or History of CAD Score: 7 MDM MDM MDM Narrative Medical decision making narrative: Patient's initial EKG shows less than [address] elevation in lead III only. There are no other leads that have this, and there are no reciprocal changes. This is subtly different than the prehospital EMS EKG which I reviewed as well, and that EKG is unchanged compared with his old EKG, all 3 of these showing a left axis. This does not meet any STEMI criteria. And considering a possible pulmonary embolus that having COVID puts a person at higher risk for, D-dimer was also sent, it was elevated, however when corrected for his age, it is well within normal limits enough to rule out pulmonary embolus acutely. His initial troponin is 27. He was given morphine, nitroglycerin, obtained chest x-ray and left shoulder films. The chest x-ray 2 view was unremarkable my interpretation,normal mediastinum no infiltrates, and the shoulder x-rays 4 views of my interpretation show no acute fracture or dislocation. His left shoulder pain isbetter after morphine, and his chest heaviness is better after 2 nitroglycerin, one of them given prehospital the other by us. Nitroglycerin paste was placed on his chest. Concern is that this could all be cardiac given his syncopal episode and his history, and sedentary lifestyle. Discussed with cardiology, who agrees not to treat this is a STEMI, his first set of enzymes were negative,agrees with admitting and following enzymes, consultation. Lab Data Attestation: I reviewed the patient's lab results. Labs: Laboratory Results - last 24 hr 08/28/22 08/28/22 08/28/22 13:25 13:25 13:25 WBC 8.2 RBC 4.05 L Hgb 13.3 Hct 38.0 L MCV 93.8 MCH 32.8 H MCHC 35.0 RDW Std Deviation 44.6 H RDW Coeff of Leeann 12.9 Plt Count 180 MPV 10.1 Immature Gran % (Auto) 0.900 Neut % (Auto) 57.4 Lymph % (Auto) 30.5 Glades % (Auto) 8.6 Eos % (Auto) 2.1 Baso % (Auto) 0.5 Absolute Neuts (auto) 4.7 Absolute Lymphs (auto) 2.51 Nucleated RBC % 0 D-Dimer Quant (PE/DVT) 0.55 H* Sodium 142 Potassium 3.7 Chloride 110 H Carbon Dioxide 27.0 Anion Gap 5 BUN 26 H Creatinine 1.34 H Estim Creat Clear Calc 44.97 Est GFR (MDRD) Af Amer 67 Est GFR (MDRD) Non-Af 56 L BUN/Creatinine Ratio 19.4 Glucose 87 Calcium 9.5 Troponin I High Sens 27 Rhythm Strip Rhythm Strip: Sinus Rhythm Rate: 70 Ectopy: None EKG Initial EKG: Attestation: I personally reviewed and interpreted this EKG as follows: Interpretation: Sinus Rhythm, LAFB and S-T Elevation (Less than 1 mm, leadIII only; no ST depressions or reciprocal changes) Prior EKG tracings: available for review Prior: Changed (See above) Management Discussion w/another healthcare provider: Hospitalist and Tripe Washer (CardiologyDr. Salcedo) Discharge Plan Dx/Rx/DC Orders Clinical Impression: Unstable angina, Injury of shoulder, left, Syncope Disposition Disposition: Acute Care Hospital [facility] What to do if you have Problems For any increased pain, shortness of breath, bleeding, nausea or vomiting, chestpain, or any unexpected problems, contact your Primary Care Provider. Call [facility] ([phone]) or report to the closest Emergency Room. Call 911 if necessary. 08/28/22 1706 <Electronically signed by Van Umaña MD> Cosigner Signature (if applicable): CC: Dr. Afua Velez, DO ~ Signed [facility] Work Phone: 1(111) 214-914304-03-2023 History and physical note Author Dr. England [facility] August 28, 2022 3:36pm Note Date/Time August 28, 2022 2:45 pm [facility] Medical Records Department [address] [place] [address] History & Physical Exam 08/28/22 1444 MR#: [id number] Acct: [id number] Name: SEBASTIEN OWENS Rep #:[id number] : 1950 72 From: Rosey England MD PCP: Dr. Afua Velez, Status:ADM SENDY Location: [place] [address] HPI - General General Date of Admission: 08/28/22 Date of Service: 08/28/22 Chief Complaint: Syncope, chest heaviness, dyspnea. 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, Obesity, BPH, GERD, JEFFERSON on BIPAP, HTN, HLD, CAD s/p PCI 2017, Hx VTE (PE, DVT), Rheumatoid arthritis, Hx TBI, Gout, Dementia unclear type with unclear behavioral disturbance history, Anxiety and Depression, Chronic anemia/iron deficiency anemia, EtOH Abuse, Hx COVID-19 Acute Viral Syndrome who presents to the [facility] ED on 08/28/22 with history of dyspnea, primarily with exertion following COVID illness several months prior with reportedly being outside and performing yard work specifically raking the leaves with onset lightheadedness and dizziness with resulting syncopal event unfortunately landing on his left shoulder with discomfort following, awakening with persistent dyspnea and mild chest heavinessprompting EMS call with administration of 4 baby aspirin and 1 nitroglycerin with no improvement in his symptoms prompting EMS transition to the ED for evaluation. Patient reports that when he had the onset of chest discomfort he felt it was the same as his previous heart attacks and rated at 10 out of 10 at that time, currently upon evaluation in the ED he rates his discomfort 3 out of 10 in severity. He notes the discomfort in the midsternal region without radiation and described it as heaviness/tightness. ED calculated heart score 7.He notes that his L shoulder is bothering him more than anything, sharp pain 10/10 with any activity attempts, feels as though it was damaged/ripped. Work-upin the ED included T97.5, heart rate 76, BP 150/84, respiratory rate 15, 99% on room air, CBC with WBC 8.2, hemoglobin 13.3, platelet 180 without marked shift, D-dimer 0.55 however this is normal for age adjustment, BMP with chloride 110, BUN/Cr 26/1.34, troponin 27, chest x-ray with no acute cardiopulmonary findings/chronic changes w/ hyperinflation, plain film of the shoulder w/ moderate degree of osteoarthritis of the glenohumeral joint, EKG with initially [address] elevation in lead III with no other leads demonstrating this and no reciprocal changes subtly different than the prehospital EMS EKG which had been unchanged from prior. In the ED patient ministered initially sublingual nitroglycerin eventually transition to nitroglycerin 0.5 inch TD application, morphine 2 mg IV x1. ED paged [employer] Director chief solution architect Dr. Salcedo and Hospitalistreviewed case with him with request for heparin drip start, agreed with ECHO andwould evaluate for further plans. FORMERLY [facility], [facility] Medical History Alcoholism Anemia Anxiety Atherosclerosis of coronary artery without angina pectoris Back pain BiPAP (biphasic positive airway pressure) dependence Chronic pain Coronary artery disease Dementia Depression Essential (primary) hypertension GI hemorrhage Gout History of stress test Hyperlipidemia Hypertension Myocardial infarct Non-smoker NSTEMI (non-ST elevated myocardial infarction) (04/13/18) Obesity Pancreatitis Pulmonary embolism Rheumatoid arthritis Sleep apnea Traumatic brain injury Home Medications allopurinol 100 mg tablet 100 mg PO BID gout 11/07/20 [History Last Taken 08/27/22] aspirin 81 mg chewable tablet 81 mg PO DAILY thinner 11/07/20 [History Last Taken 08/28/22] cholecalciferol (vitamin D3) 125 mcg (5,000 unit) tablet 125 mcg PO DAILY supplement 11/07/20 [History Last Taken 08/23/22] colchicine 0.6 mg tablet (Colcrys) 0.6 mg PO BID gout 11/07/20 [History Last Taken Unknown] finasteride 5 mg tablet 5 mg PO QHS urine retention 11/07/20 [History Last Taken 08/27/22] tamsulosin 0.4 mg capsule 0.4 mg PO BID urinary retention 11/07/20 [History Last Taken 08/27/22] alprazolam 0.5 mg tablet (Xanax) 0.5 mg PO BID anxiety 11/09/20 [History Last Taken 08/27/22] nitroglycerin 0.4 mg sublingual tablet 0.4 mg sublingual Q5M PRN Cardiac/Chest Pain #0 tabs 11/09/20 [Rx Last Taken Unknown] acetaminophen 500 mg tablet 1,000 mg PO Q6H PRN PRN Pain Score 1-3 #0 tabs 11/15/20 [Rx Last Taken Unknown] omeprazole 20 mg capsule,delayed release 20 mg PO BID GERD 08/28/22 [History Last Taken 08/27/22] Allergy/AdvReac Type Severity Reaction Status Date / Time No Known Allergies Allergy Verified 08/10/20 15:50 Family History Mother CAD (coronary artery disease) other (No marked paternal family history including no HD, DM, CA, took no medications.) Surgical History History of coronary artery stent placement (04/13/18) History of knee surgery History of repair of rotator cuff Hx of cholecystectomy Social History (Updated 08/28/22 @ 15:[address] Rosey England MD) household members: spouse Smoking Status: Never smoker alcohol intake: former details: Sober since 2010. substance use type: does not use ROS ROS Narrative Admission Review of Systems: CONSTITUTIONAL: No weight loss, fever, chills, +weakness or fatigue. HEENT: Eyes: No visual loss, blurred vision, double vision or yellow sclerae. Ears, Nose, Throat: No hearing loss, sneezing, congestion, runny nose or sore throat. SKIN: No rash or itching, lesions, wounds. CARDIOVASCULAR: + Syncope, chest pain, chest pressure/heaviness/tightness, No palpitations, edema, orthopnea. RESPIRATORY: + Shortness of breath, No cough or sputum, wheezing, hemoptysis. GASTROINTESTINAL: No anorexia, nausea, vomiting or diarrhea, abdominal pain, melena, BRBPR. GENITOURINARY: No dysuria, frequency, urgency or retention. NEUROLOGICAL: + Syncope, dementia history. No headache, dizziness, paralysis, ataxia, numbness or tingling in the extremities, focal weakness, change in bowelor bladder control, seizure. MUSCULOSKELETAL: + muscle, back pain, joint pain or stiffness. HEMATOLOGIC: + anemia, bleeding or bruising. LYMPHATICS: No enlarged nodes. No history of splenectomy. PSYCHIATRIC: + history of depression or anxiety. ENDOCRINOLOGIC: No reports of sweating, cold or heat intolerance. No polyuria orpolydipsia. ALLERGIES: No history of asthma, hives, eczema or rhinitis. Vital Signs Vital Signs Vital Signs: 08/28/22 13:15 08/28/22 13:22 08/28/22 14:01 Temperature 97.5 F L Temperature Source Temporal Pulse Rate 76 Respiratory Rate 15 Blood Pressure 150/84 H 154/129 H Blood Pressure Mean 106 Pulse Ox 99 Oxygen Delivery Method Room Air Oxygen Flow Rate (L/min) 08/28/22 13:48 08/28/22 14:40 08/28/22 14:43 Temperature Temperature Source Pulse Rate 69 69 Respiratory Rate 16 Blood Pressure 137/85 H Blood Pressure Mean 102 Pulse Ox 97 Oxygen Delivery Method Room Air Nasal Cannula Oxygen Flow Rate (L/min) 2 08/28/22 14:31 Temperature Temperature Source Pulse Rate 80 Respiratory Rate 16 Blood Pressure 144/78 H Blood Pressure Mean 100 Pulse Ox 98 Oxygen Delivery Method Room Air Oxygen Flow Rate (L/min) Weight Weight: 193 lb 12.581 oz Body Mass Index (BMI) 31.2 Physical Exam Narrative Physical Examination: General: Awake, alert, oriented x 3 and cooperative, seated upright in the ED bed, chest discomfort improved, currently rated 4 out of 10, still ongoing left shoulder pain, worse with movement attempts. Skin: Normal color, normal turgor, no icterus, no cyanosis. HEENT: AT/NC, EOMI, PERRLA, mildly dry MM, no carotid bruits or JVD noted. Lungs: Mildly diminished, greater bases, appropriate effort, no rales, ronchi orwheezing. Heart: Currently regular rate and rhythm; no gallop, rub audible. Abdomen: Soft, obese, NTTP, ND, mildly hyperactive BS, no HSM. Extremities: No cyanosis, clubbing, or edema, bilateral lower extremity neuropathic discomfort with discomfort with palpation which is chronic, left upper extremity with significant limited range of motion and movement against resistance with recent injury, peripheral pulses intact. Neurological: Patient awake, alert, oriented as, cognitive function intact; pupils equally reactive to light and accommodation, cranial nerves II-XII grossly normal, moving all 4 extremities except left upper extremity with limited range of motion given recent injury, strength moderately global decreased secondary to acute complaints. Psychiatric: Affect appears fatigued otherwise normal, no acute evidence of depressive or anxiety feelings. Results Lab / Micro Data Result Diagrams: 08/28/22 13:25 08/28/22 13:25 Labs: Laboratory Results - last 24 hr 08/28/22 13:25: WBC 8.2, RBC 4.05 L, Hgb 13.3, Hct 38.0 L, MCV 93.8, MCH 32.8 H,MCHC 35.0, RDW Std Deviation 44.6 H, RDW Coeff of Leeann 12.9, Plt Count 180, MPV 10.1, Immature Gran % (Auto) 0.900, Neut % (Auto) 57.4, Lymph % (Auto) 30.5, Glades % (Auto) 8.6, Eos % (Auto) 2.1, Baso % (Auto) 0.5, Absolute Neuts (auto) 4.7, Absolute Lymphs (auto) 2.51, Nucleated RBC % 0 08/28/22 13:25: Sodium 142, Potassium 3.7, Chloride 110 H, Carbon Dioxide 27.0, Anion Gap 5, BUN 26 H, Creatinine 1.34 H, Estim Creat Clear Calc 44.97, Est GFR (MDRD) Af Amer 67, Est GFR (MDRD) Non-Af 56 L, BUN/Creatinine Ratio 19.4, Glucose 87, Calcium 9.5, Troponin I High Sens 27 08/28/22 13:25: D-Dimer Quant (PE/DVT) 0.55 H* Rhythm Strip Rhythm Strip: Sinus Rhythm Rate: 70 Ectopy: None Radiology Impression Chest X-Ray 08/28/22 14:10 IMPRESSION: Hyperinflation. The lungs are clear. Electronically Signed: Haider Cleaning MD at 14:39 EDT , Shoulder X-Ray 08/28/22 14:10 IMPRESSION: Moderate degree of osteoarthritis of the glenohumeral joint. Electronically Signed: Haider Cleaning MD at 14:40 EDT , Assessment & Plan Assessment/Plan (1) Syncope: PLAN: Plan The patient is a 72 y/o M w/ PMHx: Suspected CKD stage II, Obesity, BPH, GERD, JEFFERSON on BIPAP, HTN, HLD, CAD s/p PCI 2017, Hx VTE (PE, DVT), Rheumatoid arthritis, Hx TBI, Gout, Dementia unclear type with unclear behavioral disturbance history, Anxiety and Depression, Chronic anemia/iron deficiency anemia, EtOH Abuse, Hx COVID-19 Acute Viral Syndrome who presents to the [facility] ED on 08/28/22 with history of dyspnea, primarily with exertion following COVID illness several months prior with reportedly being outside and performing yard work specifically raking the leaves with onset lightheadedness and dizziness with resulting syncopal event unfortunately landing on his left shoulder with discomfort following, awakening with persistent dyspnea and mild chest heavinessprompting EMS call with administration of 4 baby aspirin and 1 nitroglycerin with no improvement in his symptoms prompting EMS transition to the ED for evaluation. #1. Persistent exertional dyspnea with associated syncopal event and chest heaviness/unstable angina: Unclear etiololgy, EKG in ED w/ sinus rhythm without evidence of acute ischemia, CXR w/ no acute cardiopulmonary findings/chronic changes/hyperinflation, initial trop 27. Will admit to PCU, place on a monitored bed to assure no acute myocardial infarction with serial cardiac enzymes and EKGs. Will maintain on fall precautions, obtain admission orthostatic and AM orthostatic VS and increase hydration if appropriate with BP adjustments as needed. Will obtain ECHO. PT/OT consultation to ascertain stability and discharge needs as well as case management. Most recent echocardiogram noted 04/15/2018 with normal LV size, normal LV systolic function, EF 55%, stage I diastolic dysfunction with contrast injection performed at that time. Cardiology consulted, evaluation pending but discussed patient and will start heparin drip per their request. #2. Left shoulder discomfort status post fall with ongoing pain/limited mobility related: Plain film of the shoulder w/ moderate degree of osteoarthritis of the glenohumeral joint, remote history of rotator cuff repair x 2, has followed with Dr. Campbell prior but for LE orthopedic surgery intervention, if necessary will involve orthopedic surgery, PT and OT requested,PRN pain regimen. Suspect will need further imaging but will await further evaluation but will await reassessment following pain medication, icing, therapyassessments. #3. History of prior COVID-19 acute viral illness: Patient with history of dyspnea ongoing since COVID illness, certainly concerns associated with #1, continue evaluation work-up as noted although if no marked finding could benefitfrom outpatient PFT and pulmonary follow-up. #4. Mild renal insufficiency on CKD stage II primarily from review of records: Admission BUN/creatinine 26/1.34, baseline prior since 2019 primarily 1.1-1.2 although has vacillated during acute phase as it appears from review of records,will judiciously hydrate and repeat level in AM. #5. CAD: Status post PCI 2018, we will continue patient home aspirin, prasugrel, lisinopril, not on beta-shreya therapy, clarifying. #6. Chronic anemia, normocytic/iron deficiency anemia: Admission hemoglobin 13.3, prior baseline remotely primarily 11-12 last 10/2020, will continue to trend and continue iron supplementation. #7. Hypertension: We will continue patient home lisinopril regimen, will alter as needed pending orthostatic assessment and continue BP monitoring, as needed IV hydralazine. #8. Hyperlipidemia: We will continue patient on statin therapy, FLP in a.m. #9. Former EtOH Abuse: Patient with prior heavy alcohol abuse, sober since 2010, encourage continued sobriety. #10. Dementia unclear type with unclear behavioral disturbance history, unclearpotentially related with reported prior TBI history: Complicates presentation, maintain on fall and aspiration precautions, therapy as well as case management consulted for discharge planning. #11. History of VTE: Patient with noted history DVT, PE previously, not chronically anticoagulated per current list. #12. GERD: We will continue patient home PPI, sucralfate. #13. BPH: We will continue patient home Flomax and finasteride regimen. #14. Anxiety and depression: We will continue patient home low-dose Xanax as needed regimen however would benefit from consideration SSRI, encourage continued outpatient follow-up and counseling. #15. Gout: We will continue patient home allopurinol and colchicine regimen. #16. Obesity: Weight loss and lifestyle changes encouraged. #17. Rheumatoid arthritis: Per current list not on any chronic regimen, encourage continued outpatient follow-up with rheumatology as needed. #18. JEFFERSON: BiPAP nightly. #19. DVT prophylaxis: Heparin drip per Cardiology request. #20. CODE status: Patient HCPLISS is his who is present and his daughter whois a secondary and living will is currently in place. Discussed CODE status at length including difference between FULL code, DNR-CCA and DNR-CC status. Following discussions about the differences in these status, requested Full Codealthough this was clarified several times. Advanced Care Planning Face to Face Time: 16 minutes. Admission Evaluation Time spent evaluating chart, patient history, patient evaluation, care planning and discussion with specialists: 60 minutes. Charges/Coding Visit Charges Inpatient E&M: 26850 Init Hosp L2 Procedures Hospitalists Procedures: 13489 Advncd Care Plan 30 Min 08/28/22 1536 <Electronically signed by Rosey England MD> Cosigner Signature (if applicable): CC: Dr. Rosey England MD; Dr. Afua Velez, DO~ Signed [facility] Work Phone: 1(821) 853-307108-31-2022 History of Present illness Narrative* Neymar Borges, RT(R) - 01/25/2022 1:10 PM EDT Radiology Service Progress Note PATIENT NAME: Sebastien Owens DATE OF SERVICE: January 25, 2022 TIME: 1:14 PM PATIENT IDENTITY VERIFICATION COMPLETED USING TWO (2) IDENTIFIERS: Name and Date of confirmedby patient verbally. FALL SCREENING: Has the patient [...] IV DATA: Not applicable SIGNED BY: RT Miryam(Shanell) January 25, 2022 1:14 PM [facility] Discharge instructions Patient Education 04/19/2021 11:40:00 Abdominal Pain [...] find the cause of your pain. If needed,you will have tests. Belly pain has many [...] foods again, start with small amounts of [id number], low- fat foods. These include apple sauce, toast, or [...] increase stomach acid. Don't use aspirin or [id number] pain and fever medicines, if possible. This includes nonsteroidal anti-inflammatory drugs (NSAIDs). Lose excess weight. Finish eating at least 2 hours before you go to bed or lie down. Raise the head of your bed. [phone] [employer] [address] [place] [address], [place] [address]. All rights reserved. This information is not intended as a substitute for professional medical care. Always follow yourhealthcare professional's instructions. Follow Up Care 04/19/2021 10:59:57 With:STANLEY SANDOVAL MD Address: [phone] When:2-4 days [facility] 11-06-2021 Hospital Discharge instructions Patient Education 04/02/2021 12:54:28 Gastritis (Adult) [...] can help reduce stomach irritation and help itheal. If you have been prescribed medicines for [...] or as directed by your healthcare provider [phone] [employer] [address] [place] [address], [place] [address]. All rights reserved. This information is not intended as a substitute for professional medical care. Always follow yourhealthcare professional's instructions. Follow Up Care 04/02/2021 10:23:03 With:AFUA VELEZ DO Address: [address] [place] [id number]- When:2-4 days [facility] 04-19-2016 History of Past illness Narrative* Problem Noted Date Resolved Date Transient alteration of awareness 09/14/2015 03/01/2016 NO SHOW 02/12/2015 06/12/2016 Lipoma of unspecified site 06/07/201012/08 Injury caused by lifting 02/22/2009 011 Right Sprain and Strain of Knee and Leg 01/23/20 09 11/15/2009 Right Rotator Cuff Tear 01/22/2009 01/23/20 09 Gouty arthropathy 01/11/2009 02/15/2009 Lipoma of unspecified site 04/22/200811/15 Sebaceous cyst 12/31/2007 11/15/2009 documented as of this encounter (statuses as of 01/26/2022) [facility]04[facility] History of Past illness Narrative* Problem Noted [...] of this encounter (statuses as of 03/07/2023) [address]19-2016 History of Past illness Narrative* Problem [...] of this encounter (statuses as of 03/20/2023) [facility] History of Past illness Narrative* Problem Noted [...] of this encounter (statuses as of 04/11/2023) [facility] History of Past illness Narrative* Problem Noted [...] of this encounter (statuses as of 04/27/2023) [facility]04-19-2016 History of Past illness Narrative* Problem Noted [...] encounter (statuses as of 07/14/2023) [facility]04-19-2016 History of Past illness Narrative* Problem Noted [...] encounter (statuses as of 07/14/2023) [facility]. Max [facility] August 29, 2022 3:28pm Note Date/Time August 29, 2022 3:23 pm [facility] Medical Records Department [address] [place] [address] Instructions for Home/Discharge Instructions 08/29/22 1523 MR#: [id number] Acct: [id number] Name: SEBASTIEN OWENS Rep #:[id number] : 1950 72 From: Stevan aquino MD PCP: Dr. Afua Velez, DO Status:ADM SENDY Discharge Instructions Diet Discharge Diet: Low fat / Low cholesterol Activity Discharge Activity: Return to Normal Activity Dressing / Incision Call your doctor if you observe: Fever of 101 or Higher, Shortness of breath, Dizziness, Fainting spells, Swelling in the ankles, Chest pain and Increased palpitations (irregular heartbeat) Follow Up Care Test Results: Test results from this visit will be discussed in further detail at your follow- up appointment, if applicable. Discharge Plan Admission Admit Date/Time: 08/28/22 14:50 Attending Provider: Stevan Max Primary Care Provider: Afua Velez Consulting Providers: Nabil Salcedo ; Rosey England Instructions Additional Instructions / Restrictions: Please follow-up with your heavy coil winder within the next couple of weeks for outpatient follow-up. You are being started on a new blood pressure medication called metoprolol which helps with your heart rates if you do feel dizzy or lightheadedness please take your blood pressure and call your doctor. Discharge Orders/Prescriptions Prescriptions: New atorvastatin 40 mg Tablet 40 mg PO QHS Qty: 30 0RF metoprolol tartrate 25 mg tablet 25 mg PO BID Qty: 60 0RF Continued allopurinol 100 mg Tablet 100 mg PO BID tamsulosin 0.4 mg Capsule 0.4 mg PO BID aspirin 81 mg Tablet,Chewable 81 mg PO DAILY colchicine [Colcrys] 0.6 mg Tablet 0.6 mg PO BID finasteride 5 mg Tablet 5 mg PO QHS cholecalciferol (vitamin D3) 125 mcg (5,000 unit) Tablet 125 mcg PO DAILY nitroglycerin 0.4 mg Tablet, Sublingual 0.4 mg sublingual Q5M PRN (Reason: Cardiac/Chest Pain) Qty: 0 0RF alprazolam [Xanax] 0.5 mg tablet 0.5 mg PO BID acetaminophen 500 mg Tablet 1,000 mg PO Q6H PRN PRN (Reason: Pain Score 1-3) Qty: 0 0RF omeprazole 20 mg Capsule,Delayed Release(Dr/Ec) 20 mg PO BID Referrals / Follow Up: Afua Velez DO [Primary Care Provider] - Within 1 Week Disposition Disposition (needs filled in before D/C Order can be placed): Home, Self Care 08/29/22 1528<Electronically signed by Stevan Max MD>Stevan Max MD CC: Dr. Rosey England MD; Dr. Afua Velez DO; Dr. Nabil Salcedo MD~ Signed [facility] Work Phone: Discharge summary Author Dr. Max [facility] August 29, 2022 3:34pm Note Date/Time August 29, 2022 3:31 pm [facility] Medical Records Department [address] [place] [address] Discharge Summary 08/29/22 1528 MR#: [id number] Acct: [id number] Name: SEBASTIEN OWENS Rep #:[id number] : 1950 72 From: Stevan aquino MD PCP: Dr. Afua Velez DO Status:ADM SENDY Location: [place] [address] Providers Date of Admission: 08/28/22 Primary Care Physician: Dr. Afua Velez DO Consultations 08/28/22 15:46 Consult: Cardiology Routine Consulting Provider: Nabil Salcedo Reason for Consult: Chest pain, syncope, dyspnea EMERGENT Consult: No MD Notified: Yes Date Notified: 08/28/22 Time Notified: 14:56 Method of Notification: ED Physician Initiated Reason For Visit: SYNCOPE, CP, DYSPNEA Diagnosis Discharge Diagnosis (1) Syncope: Status: Acute Code(s): R55 - Syncope and collapse Medications at Discharge Home Medications allopurinol 100 mg tablet 100 mg PO BID gout 11/07/20 aspirin 81 mg chewable tablet 81 mg PO DAILY thinner 11/07/20 cholecalciferol (vitamin D3) 125 mcg (5,000 unit) tablet 125 mcg PO DAILY supplement 11/07/20 colchicine 0.6 mg tablet (Colcrys) 0.6 mg PO BID gout 11/07/20 finasteride 5 mg tablet 5 mg PO QHS urine retention 11/07/20 tamsulosin 0.4 mg capsule 0.4 mg PO BID urinary retention 11/07/20 alprazolam 0.5 mg tablet (Xanax) 0.5 mg PO BID anxiety 11/09/20 nitroglycerin 0.4 mg sublingual tablet 0.4 mg sublingual Q5M PRN Cardiac/Chest Pain #0 tabs 11/09/20 acetaminophen 500 mg tablet 1,000 mg PO Q6H PRN PRN Pain Score 1-3 #0 tabs 11/15/20 omeprazole 20 mg capsule,delayed release 20 mg PO BID GERD 08/28/22 atorvastatin 40 mg tablet 40 mg PO QHS #30 tabs 08/29/22 metoprolol tartrate 25 mg tablet 25 mg PO BID #60 tabs 08/29/22 Hospital Course Operations None Procedures 2-D Echocardiogram and Stress test Summary of Care Provided Minutes Spent on Discharge: 40 Hospital Course: Per HPI: The patient is a 72 y/o M w/ PMHx: Suspected CKD stage II, Obesity, BPH, GERD, JEFFERSON on BIPAP, HTN, HLD, CAD s/p PCI 2017, Hx VTE (PE, DVT), Rheumatoid arthritis, Hx TBI, Gout, Dementia unclear type with unclear behavioral disturbance history, Anxiety and Depression, Chronic anemia/iron deficiency anemia, EtOH Abuse, Hx COVID-19 Acute Viral Syndrome who presents to the [facility] ED on 08/28/22 with history of dyspnea, primarily with exertion following COVID illness several months prior with reportedly being outside and performing yard work specifically raking the leaves with onset lightheadedness and dizziness with resulting syncopal event unfortunately landing on his left shoulder with discomfort following, awakening with persistent dyspnea and mild chest heaviness prompting EMS call with administration of 4 baby aspirin and 1 nitroglycerin with no improvement in his symptoms prompting EMS transition to the ED for evaluation.? Patient reports that when he had the onset of chest discomfort he felt it was the same as his previous heart attacks and rated at 10out of 10 at that time, currently upon evaluation in the ED he rates his discomfort 3 out of 10 in severity.? He notes the discomfort in the midsternal region without radiation and described it as heaviness/tightness.? ED calculatedheart score 7. He notes that his L shoulder is bothering him more than anything,sharp pain 10/10 with any activity attempts, feels as though it was damaged/ripped. Work-up in the ED included T97.5, heart rate 76, BP 150/84, respiratory rate 15, 99% on room air, CBC with WBC 8.2, hemoglobin 13.3, platelet 180 without marked shift, D-dimer 0.55 however this is normal for age adjustment, BMP with chloride 110, BUN/Cr 26/1.34, troponin 27, chest x-ray withno acute cardiopulmonary findings/chronic changes w/ hyperinflation, plain film of the shoulder w/ moderate degree of osteoarthritis of the glenohumeral joint, EKG with initially [address] elevation in lead III with no other leads demonstrating this and no reciprocal changes subtly different than the prehospital EMS EKG which had been unchanged from prior.? In the ED patient ministered initially sublingual nitroglycerin eventually transition to nitroglycerin 0.5 inch TD application, morphine 2 mg IV x1. ED paged [employer] Director chief solution architect Dr. Salcedo and Hospitalist reviewed case with him with request for heparin drip start, agreed with ECHO and would evaluate for further plans. Hospital Coourse: 1. Persistent exertional dyspnea as well as syncope and possible unstable angina/CAD status post stent/HTN/HLD ? Troponins are negative ? The stress test showed no evidence of significant ischemia, there was evidenceof a prior basal lateral myocardial infarct ? Discussion with cardiology they felt that he would be stable to go home, and to be started on a statin and metoprolol twice daily ? Echo with an EF of 55% and a small sized posterior wall motion abnormality ? Continue with his home blood pressure medications ? Orthostatic vital signs are negative ?I discussed with him the plan for discharge today and he expressed understanding of the risk benefits going home and would like to go home today. He denies any further episodes of chest pain or lightheadedness and dizziness. Do recommend he follow- up with his PCP in 3 to 5 days as well as cardiology within the next month or so. 2. Left shoulder discomfort after fall ? Film of the shoulder is negative for fracture, there is some osteoarthritis ? He did have his rotator cuff repaired twice in the past. We will have him follow-up with outpatient Ortho 3. GERD ? Stable ? Continue with PPI 4. BPH ? Stable ? Continue Flomax 5. Gout ? Stable ? Continue with allopurinol and colchicine 6. Anxiety ? Stable ? Continue Xanax DVT: Heparin drip Weight / BMI Weight Weight: 192 lb 10.944 oz Body Mass Index (BMI) 31.1 ABG / Lab / Microbiology Data Result Diagrams: 08/29/22 09:28 08/29/22 09:28 Laboratory: Laboratory Results - last 24 hr 08/28/22 13:25: PT 12.5, INR 1.0, APTT 26.0 08/28/22 15:00: Phosphorus 2.2 L, Magnesium 2.0 08/28/22 15:00: Ethyl Alcohol < 3.0 08/28/22 16:04: Troponin I High Sens 38 08/28/22 19:22: Troponin I High Sens 42 08/28/22 23:30: APTT 140.0 H* 08/29/22 09:28: WBC 7.2, RBC 4.41 L, Hgb 14.3, Hct 42.5, MCV 96.4 H, MCH 32.4 H,MCHC 33.6, RDW Std Deviation 46.0 H, RDW Coeff of Leeann 12.9, Plt Count 153, MPV 9.5, Immature Gran % (Auto) 1.000 H, Neut % (Auto) 56.6, Lymph % (Auto) 29.7, Glades % (Auto) 9.0, Eos % (Auto) 2.9, Baso % (Auto) 0.8, Absolute Neuts (auto) 4.1, Absolute Lymphs (auto) 2.15, Nucleated RBC % 0 08/29/22 09:28: Sodium 139, Potassium 3.5, Chloride 109 H, Carbon Dioxide 27.0, Anion Gap 3 L, BUN 20 H, Creatinine 1.11, Estim Creat Clear Calc 54.28, Est GFR (MDRD) Af Amer 84, Est GFR (MDRD) Non-Af 69, BUN/Creatinine Ratio 18.0, Glucose 100, Calcium 9.2, Total Bilirubin 0.50, AST 23, ALT 24, Alkaline Phosphatase 59,Total Protein 7.0, Albumin 3.8, Globulin 3.2, Albumin/Globulin Ratio 1.2 08/29/22 09:28: APTT 65.5 H Radiography Diagnostic Testing: Radiology Impression Echocardiogram 08/28/22 15:46 Interpretation Summary The estimated ejection fraction is 55 %. There is a small sized posterior wall motion abnormality with hypokinesis of thesegments. Ordering Physician: Rosey England Referring Physician: Afua Velez Performed By: Olegario Terrazas RCS D/C Instructions Discharge Diet: Low fat / Low cholesterol Call your doctor if you observe: Fever of 101 or Higher, Shortness of breath, Dizziness, Fainting spells, Swelling in the ankles, Chest pain and Increased palpitations (irregular heartbeat) Meaningful Use Info Meaningful Use Diagnoses (Choose all that apply): None applicable Discharge Plan Admission Admit Date/Time: 08/28/22 14:50 Attending Provider: Stevan Max Primary Care Provider: Afua Velez Consulting Providers: Nabli Salcedo ; Rosey England Instructions Additional Instructions / Restrictions: Please follow-up with your heavy coil winder within the next couple of weeks for outpatient follow-up. You are being started on a new blood pressure medication called metoprolol which helps with your heart rates if you do feel dizzy or lightheadedness please take your blood pressure and call your doctor. Discharge Orders/Prescriptions Prescriptions: New atorvastatin 40 mg Tablet 40 mg PO QHS Qty: 30 0RF metoprolol tartrate 25 mg tablet 25 mg PO BID Qty: 60 0RF Continued allopurinol 100 mg Tablet 100 mg PO BID tamsulosin 0.4 mg Capsule 0.4 mg PO BID aspirin 81 mg Tablet,Chewable 81 mg PO DAILY colchicine [Colcrys] 0.6 mg Tablet 0.6 mg PO BID finasteride 5 mg Tablet 5 mg PO QHS cholecalciferol (vitamin D3) 125 mcg (5,000 unit) Tablet 125 mcg PO DAILY nitroglycerin 0.4 mg Tablet, Sublingual 0.4 mg sublingual Q5M PRN (Reason: Cardiac/Chest Pain) Qty: 0 0RF alprazolam [Xanax] 0.5 mg tablet 0.5 mg PO BID acetaminophen 500 mg Tablet 1,000 mg PO Q6H PRN PRN (Reason: Pain Score 1-3) Qty: 0 0RF omeprazole 20 mg Capsule,Delayed Release(Dr/Ec) 20 mg PO BID Referrals / Follow Up: Afua Velez DO [Primary Care Provider] - Within 1 Week Disposition Disposition (needs filled in before D/C Order can be placed): Home, Self Care Charges/Coding Visit Charges Inpatient E&M: 47355 Disch Hosp >30min 08/29/22 153 <Electronically signed by Stevan Max MD> Cosigner Signature (if applicable): CC: Dr. Afua Velez DO; Dr. Stevan Max MD~ Signed [facility] Work Phone: Evaluation + Plan note No data available for this section [facility] Evaluation + Plan note Future Appointments Appointment Date:10/16/2023 10:00:00 AM Scheduled Provider: Location:[facility] Appointment Type:CV OV Future Scheduled Tests Laboratory* Lipid Profile 09/21/23 * N-Terminal proBNP 09/21/23 [facility] Evaluation + Plan note Future Scheduled Tests Laboratory* Lipid Profile 04/17/24 * N-Terminal proBNP 04/17/24 [facility] evaluation noteNo assessment information available [facility] Work Phone: [email or web address] note* Diagnosis Onset Date Resolution Status Injury of shoulder, left acu te Syncope acute Unstable angina acute [facility] Work Phone: evaluation note* Diagnosis Onset Date Resolution Status Acute encephalopathy acute Migraine acute [facility] Work Phone: evaluation note* Diagnosis Iritis, traumatic- Primary Unspecified iridocyclitis Retinal hemorrhage, right eye Retinal hemorrhage Punctate keratitis, bilateral [facility] Diagnosis Iritis, traumatic- Primary Unspecified iridocyclitis Retinal hemorrhage, right eye Retinal hemorrhage Punctate keratitis, bilateral Posterior vitreous detachment of right eye Vitreous degeneration documented [facility] this 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 Diagnosis Constipation, unspecified constipation type [facility] Diagnosis Constipation, unspecified constipation type- Primary 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 deputy 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 Hypertension chronic Abnormal nuclear stress test acute CAD S/P percutaneous coronary angioplasty acute Cardiopulmonary arrest acute Chest pain acute Hyperlipidemia acute Multifocal PVCs with pairing acute Ventricular tachycardia acut e Coronary artery disease 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 chief deputy sae Essential (primary) hypertension chronic Hypertension chronic Unstable angina resolved [facility] Work Phone: Evaluation note* Diagnosis Coronary artery disease involving [place] coronary artery of [place] heart without angina pectoris Essential hypertension Unspecified essential hypertension Mixed hyperlipidemia Other pulmonary embolism without acute cor pulmonale, unspecified chronicity (HCC) Gastroesophageal reflux disease, esophagitis presence not specified JEFFERSON treated with BiPAP Depression, unspecified depression type Chronic neck and back pain Hepatic encephalopathy (HCC) Hepatic encephalopathy Mild traumatic brain injury, without loss of consciousness, subsequent encounter Chest pain, unspecified type- Primary Chest pain in adult Hand edema Edema Positive D dimer Abnormal coagulation profile Elevated serum creatinine Other nonspecific findings on examination of blood Pre-op evaluation- Primary Preoperative examination, unspecified Gastroesophageal reflux disease without esophagitis Esophageal reflux Mild traumatic brain injury, without loss of consciousness, subsequent encounter Primary hypertension Unspecified essential hypertension Coronary artery disease involving [place] coronary artery of [place] heart with angina pectoris (HCC) JEFFERSON treated with BiPAP Benign prostatic hyperplasia with lower urinary tract symptoms, symptom details unspecified History of pulmonary embolism Personal history of pulmonary embolism Gastroesophageal reflux disease, unspecified whether esophagitis present- Primary Constipation, unspecified constipation type Nausea Nausea alone [facility] Diagnosis Coronary artery disease involving [place] coronary artery of [place] heart without angina pectoris Essential hypertension Unspecified essential hypertension Mixed hyperlipidemia Other pulmonary embolism without acute cor pulmonale, unspecified chronicity (HCC) Gastroesophageal reflux disease, esophagitis presence not specified JEFFERSON treated with BiPAP Depression, unspecified depression type Chronic neck and back pain Hepatic encephalopathy (HCC) Hepatic encephalopathy Mild traumatic brain injury, without loss of consciousness, subsequent encounter Chest pain, unspecified type- Primary Chest pain in adult Hand edema Edema Positive D dimer Abnormal coagulation profile Elevated serum creatinine Other nonspecific findings on examination of blood Pre-op evaluation- Primary Preoperative examination, unspecified Gastroesophageal reflux disease without esophagitis Esophageal reflux Mild traumatic brain injury, without loss of consciousness, subsequent encounter Primary hypertension Unspecified essential hypertension Coronary artery disease involving [place] coronary artery of [place] heart with angina pectoris (HCC) JEFFERSON treated with BiPAP Benign prostatic hyperplasia with lower urinary tract symptoms, symptom details unspecified History of pulmonary embolism Personal history of pulmonary embolism Combined forms of age-related cataract of both eyes- Primary Other and combined forms of senile cataract Posterior vitreous detachment of right eye Vitreous degeneration Squamous blepharitis of upper and lower eyelids of both eyes Retinal hemorrhage, left eye Retinal hemorrhage documented in this encounter [facility] Author Dr. England [facility] August 28, 2022 3:36pm Note Date/Time August 28, 2022 2:45 pm [facility] Medical Records Department [address] [place] [id number] History & Physical Exam 08/28/22 1444 MR#: [id number] Acct: [id number] Name: SEBASTIEN OWENS Rep #:[id number] : 1950 72 From: Rosey England MD PCP: Dr. Afua Velez, DO Status:ADM SENDY Location: [place] [address] HPI - General General Date of Admission: 08/28/22 Date of Service: 08/28/22 Chief Complaint: Syncope, chest heaviness, dyspnea. 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, Obesity, BPH, GERD, JEFFERSON on BIPAP, HTN, HLD, CAD s/p PCI 2017, Hx VTE (PE, DVT), Rheumatoid arthritis, Hx TBI, Gout, Dementia unclear type with unclear behavioral disturbance history, Anxiety and Depression, Chronic anemia/iron deficiency anemia, EtOH Abuse, Hx COVID-19 Acute Viral Syndrome who presents to the [facility] ED on 08/28/22 with history of dyspnea, primarily with exertion following COVID illness several months prior with reportedly being outside and performing yard work specifically raking the leaves with onset lightheadedness and dizziness with resulting syncopal event unfortunately landing on his left shoulder with discomfort following, awakening with persistent dyspnea and mild chest heavinessprompting EMS call with administration of 4 baby aspirin and 1 nitroglycerin with no improvement in his symptoms prompting EMS transition to the ED for evaluation. Patient reports that when he had the onset of chest discomfort he felt it was the same as his previous heart attacks and rated at 10 out of 10 at that time, currently upon evaluation in the ED he rates his discomfort 3 out of 10 in severity. He notes the discomfort in the midsternal region without radiation and described it as heaviness/tightness. ED calculated heart score 7.He notes that his L shoulder is bothering him more than anything, sharp pain 10/10 with any activity attempts, feels as though it was damaged/ripped. Work-upin the ED included T97.5, heart rate 76, BP 150/84, respiratory rate 15, 99% on room air, CBC with WBC 8.2, hemoglobin 13.3, platelet 180 without marked shift, D-dimer 0.55 however this is normal for age adjustment, BMP with chloride 110, BUN/Cr 26/1.34, troponin 27, chest x-ray with no acute cardiopulmonary findings/chronic changes w/ hyperinflation, plain film of the shoulder w/ moderate degree of osteoarthritis of the glenohumeral joint, EKG with initially [address] elevation in lead III with no other leads demonstrating this and no reciprocal changes subtly different than the prehospital EMS EKG which had been unchanged from prior. In the ED patient ministered initially sublingual nitroglycerin eventually transition to nitroglycerin 0.5 inch TD application, morphine 2 mg IV x1. ED paged [employer] Director chief solution architect Dr. Salcedo and Hospitalistreviewed case with him with request for heparin drip start, agreed with ECHO andwould evaluate for further plans. [facility], [facility] Medical History Alcoholism Anemia Anxiety Atherosclerosis of coronary artery without angina pectoris Back pain BiPAP (biphasic positive airway pressure) dependence Chronic pain Coronary artery disease Dementia Depression Essential (primary) hypertension GI hemorrhage Gout History of stress test Hyperlipidemia Hypertension Myocardial infarct Non-smoker NSTEMI (non-ST elevated myocardial infarction) (04/13/18) Obesity Pancreatitis Pulmonary embolism Rheumatoid arthritis Sleep apnea Traumatic brain injury Home Medications allopurinol 100 mg tablet 100 mg PO BID gout 11/07/20 [History Last Taken 08/27/22] aspirin 81 mg chewable tablet 81 mg PO DAILY thinner 11/07/20 [History Last Taken 08/28/22] cholecalciferol (vitamin D3) 125 mcg (5,000 unit) tablet 125 mcg PO DAILY supplement 11/07/20 [History Last Taken 08/23/22] colchicine 0.6 mg tablet (Colcrys) 0.6 mg PO BID gout 11/07/20 [History Last Taken Unknown] finasteride 5 mg tablet 5 mg PO QHS urine retention 11/07/20 [History Last Taken 08/27/22] tamsulosin 0.4 mg capsule 0.4 mg PO BID urinary retention 11/07/20 [History Last Taken 08/27/22] alprazolam 0.5 mg tablet (Xanax) 0.5 mg PO BID anxiety 11/09/20 [History Last Taken 08/27/22] nitroglycerin 0.4 mg sublingual tablet 0.4 mg sublingual Q5M PRN Cardiac/Chest Pain #0 tabs 11/09/20 [Rx Last Taken Unknown] acetaminophen 500 mg tablet 1,000 mg PO Q6H PRN PRN Pain Score 1-3 #0 tabs 11/15/20 [Rx Last Taken Unknown] omeprazole 20 mg capsule,delayed release 20 mg PO BID GERD 08/28/22 [History Last Taken 08/27/22] Allergy/AdvReac Type Severity Reaction Status Date / Time No Known Allergies Allergy Verified 08/10/20 15:50 Family History Mother CAD (coronary artery disease) other (No marked paternal family history including no HD, DM, CA, took no medications.) Surgical History History of coronary artery stent placement (04/13/18) History of knee surgery History of repair of rotator cuff Hx of cholecystectomy Social History (Updated 08/28/22 @ 15:[address] Rosey England MD) household members: spouse Smoking Status: Never smoker alcohol intake: former details: Sober since 2010. substance use type: does not use ROS ROS Narrative Admission Review of Systems: CONSTITUTIONAL: No weight loss, fever, chills, +weakness or fatigue. HEENT: Eyes: No visual loss, blurred vision, double vision or yellow sclerae. Ears, Nose, Throat: No hearing loss, sneezing, congestion, runny nose or sore throat. SKIN: No rash or itching, lesions, wounds. CARDIOVASCULAR: + Syncope, chest pain, chest pressure/heaviness/tightness, No palpitations, edema, orthopnea. RESPIRATORY: + Shortness of breath, No cough or sputum, wheezing, hemoptysis. GASTROINTESTINAL: No anorexia, nausea, vomiting or diarrhea, abdominal pain, melena, BRBPR. GENITOURINARY: No dysuria, frequency, urgency or retention. NEUROLOGICAL: + Syncope, dementia history. No headache, dizziness, paralysis, ataxia, numbness or tingling in the extremities, focal weakness, change in bowelor bladder control, seizure. MUSCULOSKELETAL: + muscle, back pain, joint pain or stiffness. HEMATOLOGIC: + anemia, bleeding or bruising. LYMPHATICS: No enlarged nodes. No history of splenectomy. PSYCHIATRIC: + history of depression or anxiety. ENDOCRINOLOGIC: No reports of sweating, cold or heat intolerance. No polyuria orpolydipsia. ALLERGIES: No history of asthma, hives, eczema or rhinitis. Vital Signs Vital Signs Vital Signs: 08/28/22 13:15 08/28/22 13:22 08/28/22 14:01 Temperature 97.5 F L Temperature Source Temporal Pulse Rate 76 Respiratory Rate 15 Blood Pressure 150/84 H 154/129 H Blood Pressure Mean 106 Pulse Ox 99 Oxygen Delivery Method Room Air Oxygen Flow Rate (L/min) 08/28/22 13:48 08/28/22 14:40 08/28/22 14:43 Temperature Temperature Source Pulse Rate 69 69 Respiratory Rate 16 Blood Pressure 137/85 H Blood Pressure Mean 102 Pulse Ox 97 Oxygen Delivery Method Room Air Nasal Cannula Oxygen Flow Rate (L/min) 2 08/28/22 14:31 Temperature Temperature Source Pulse Rate 80 Respiratory Rate 16 Blood Pressure 144/78 H Blood Pressure Mean 100 Pulse Ox 98 Oxygen Delivery Method Room Air Oxygen Flow Rate (L/min) Weight Weight: 193 lb 12.581 oz Body Mass Index (BMI) 31.2 Physical Exam Narrative Physical Examination: General: Awake, alert, oriented x 3 and cooperative, seated upright in the ED bed, chest discomfort improved, currently rated 4 out of 10, still ongoing left shoulder pain, worse with movement attempts. Skin: Normal color, normal turgor, no icterus, no cyanosis. HEENT: AT/NC, EOMI, PERRLA, mildly dry MM, no carotid bruits or JVD noted. Lungs: Mildly diminished, greater bases, appropriate effort, no rales, ronchi orwheezing. Heart: Currently regular rate and rhythm; no gallop, rub audible. Abdomen: Soft, obese, NTTP, ND, mildly hyperactive BS, no HSM. Extremities: No cyanosis, clubbing, or edema, bilateral lower extremity neuropathic discomfort with discomfort with palpation which is chronic, left upper extremity with significant limited range of motion and movement against resistance with recent injury, peripheral pulses intact. Neurological: Patient awake, alert, oriented as, cognitive function intact; pupils equally reactive to light and accommodation, cranial nerves II-XII grossly normal, moving all 4 extremities except left upper extremity with limited range of motion given recent injury, strength moderately global decreased secondary to acute complaints. Psychiatric: Affect appears fatigued otherwise normal, no acute evidence of depressive or anxiety feelings. Results Lab / Micro Data Result Diagrams: 08/28/22 13:25 08/28/22 13:25 Labs: Laboratory Results - last 24 hr 08/28/22 13:25: WBC 8.2, RBC 4.05 L, Hgb 13.3, Hct 38.0 L, MCV 93.8, MCH 32.8 H,MCHC 35.0, RDW Std Deviation 44.6 H, RDW Coeff of Leeann 12.9, Plt Count 180, MPV 10.1, Immature Gran % (Auto) 0.900, Neut % (Auto) 57.4, Lymph % (Auto) 30.5, Glades % (Auto) 8.6, Eos % (Auto) 2.1, Baso % (Auto) 0.5, Absolute Neuts (auto) 4.7, Absolute Lymphs (auto) 2.51, Nucleated RBC % 0 08/28/22 13:25: Sodium 142, Potassium 3.7, Chloride 110 H, Carbon Dioxide 27.0, Anion Gap 5, BUN 26 H, Creatinine 1.34 H, Estim Creat Clear Calc 44.97, Est GFR (MDRD) Af Amer 67, Est GFR (MDRD) Non-Af 56 L, BUN/Creatinine Ratio 19.4, Glucose 87, Calcium 9.5, Troponin I High Sens 27 08/28/22 13:25: D-Dimer Quant (PE/DVT) 0.55 H* Rhythm Strip Rhythm Strip: Sinus Rhythm Rate: 70 Ectopy: None Radiology Impression Chest X-Ray 08/28/22 14:10 IMPRESSION: Hyperinflation. The lungs are clear. Electronically Signed: Haider Cleaning MD at 14:39 EDT , Shoulder X-Ray 08/28/22 14:10 IMPRESSION: Moderate degree of osteoarthritis of the glenohumeral joint. Electronically Signed: Haider Cleaning MD at 14:40 EDT , Assessment & Plan Assessment/Plan (1) Syncope: PLAN: Plan The patient is a 72 y/o M w/ PMHx: Suspected CKD stage II, Obesity, BPH, GERD, JEFFERSON on BIPAP, HTN, HLD, CAD s/p PCI 2017, Hx VTE (PE, DVT), Rheumatoid arthritis, Hx TBI, Gout, Dementia unclear type with unclear behavioral disturbance history, Anxiety and Depression, Chronic anemia/iron deficiency anemia, EtOH Abuse, Hx COVID-19 Acute Viral Syndrome who presents to the [facility] ED on 08/28/22 with history of dyspnea, primarily with exertion following COVID illness several months prior with reportedly being outside and performing yard work specifically raking the leaves with onset lightheadedness and dizziness with resulting syncopal event unfortunately landing on his left shoulder with discomfort following, awakening with persistent dyspnea and mild chest heavinessprompting EMS call with administration of 4 baby aspirin and 1 nitroglycerin with no improvement in his symptoms prompting EMS transition to the ED for evaluation. #1. Persistent exertional dyspnea with associated syncopal event and chest heaviness/unstable angina: Unclear etiololgy, EKG in ED w/ sinus rhythm without evidence of acute ischemia, CXR w/ no acute cardiopulmonary findings/chronic changes/hyperinflation, initial trop 27. Will admit to PCU, place on a monitored bed to assure no acute myocardial infarction with serial cardiac enzymes and EKGs. Will maintain on fall precautions, obtain admission orthostatic and AM orthostatic VS and increase hydration if appropriate with BP adjustments as needed. Will obtain ECHO. PT/OT consultation to ascertain stability and discharge needs as well as case management. Most recent echocardiogram noted 04/15/2018 with normal LV size, normal LV systolic function, EF 55%, stage I diastolic dysfunction with contrast injection performed at that time. Cardiology consulted, evaluation pending but discussed patient and will start heparin drip per their request. #2. Left shoulder discomfort status post fall with ongoing pain/limited mobility related: Plain film of the shoulder w/ moderate degree of osteoarthritis of the glenohumeral joint, remote history of rotator cuff repair x 2, has followed with Dr. Campbell prior but for LE orthopedic surgery intervention, if necessary will involve orthopedic surgery, PT and OT requested,PRN pain regimen. Suspect will need further imaging but will await further evaluation but will await reassessment following pain medication, icing, therapyassessments. #3. History of prior COVID-19 acute viral illness: Patient with history of dyspnea ongoing since COVID illness, certainly concerns associated with #1, continue evaluation work-up as noted although if no marked finding could benefitfrom outpatient PFT and pulmonary follow-up. #4. Mild renal insufficiency on CKD stage II primarily from review of records: Admission BUN/creatinine 26/1.34, baseline prior since 2019 primarily 1.1-1.2 although has vacillated during acute phase as it appears from review of records,will judiciously hydrate and repeat level in AM. #5. CAD: Status post PCI 2017, we will continue patient home aspirin, prasugrel, lisinopril, not on beta-shreya therapy, clarifying. #6. Chronic anemia, normocytic/iron deficiency anemia: Admission hemoglobin 13.3, prior baseline remotely primarily 11-12 last 10/2020, will continue to trend and continue iron supplementation. #7. Hypertension: We will continue patient home lisinopril regimen, will alter as needed pending orthostatic assessment and continue BP monitoring, as needed IV hydralazine. #8. Hyperlipidemia: We will continue patient on statin therapy, FLP in a.m. #9. Former EtOH Abuse: Patient with prior heavy alcohol abuse, sober since 2010, encourage continued sobriety. #10. Dementia unclear type with unclear behavioral disturbance history, unclearpotentially related with reported prior TBI history: Complicates presentation, maintain on fall and aspiration precautions, therapy as well as case management consulted for discharge planning. #11. History of VTE: Patient with noted history DVT, PE previously, not chronically anticoagulated per current list. #12. GERD: We will continue patient home PPI, sucralfate. #13. BPH: We will continue patient home Flomax and finasteride regimen. #14. Anxiety and depression: We will continue patient home low-dose Xanax as needed regimen however would benefit from consideration SSRI, encourage continued outpatient follow-up and counseling. #15. Gout: We will continue patient home allopurinol and colchicine regimen. #16. Obesity: Weight loss and lifestyle changes encouraged. #17. Rheumatoid arthritis: Per current list not on any chronic regimen, encourage continued outpatient follow-up with rheumatology as needed. #18. JEFFERSON: BiPAP nightly. #19. DVT prophylaxis: Heparin drip per Cardiology request. #20. CODE status: Patient NEERAJ is his who is present and his daughter whois a secondary and living will is currently in place. Discussed CODE status at length including difference between FULL code, DNR-CCA and DNR-CC status. Following discussions about the differences in these status, requested Full Codealthough this was clarified several times. Advanced Care Planning Face to Face Time: 16 minutes. Admission Evaluation Time spent evaluating chart, patient history, patient evaluation, care planning and discussion with specialists: 60 minutes. Charges/Coding Visit Charges Inpatient E&M: 00769 Init Hosp L2 Procedures Hospitalists Procedures: 74865 Advncd Care Plan 30 Min 08/28/22 9966 <Electronically signed by Rosey England MD> Cosigner Signature (if applicable): CC: Dr. Rosey England MD; Dr. Afua Velez, DO~ Signed [facility] Work Phone: History and physical note Author Chaparro Johns [facility] January 11, 2023 2:47pm Note Date/Time January 11, 2023 2: 47pm [facility] Medical Records Department [address] [place] [address] H&P Exam - Hospitalist 01/11/23 1436 MR#: [id number] Acct: [id number] Name: SEBASTIEN OWENS Rep #:[id number] : 1950 72 From: Chaparro Johns DO PCP: Dr. Afua Velez DO Status:REG ER Location: ED HPI - General General Date of Service: 01/11/23 Chief Complaint: confusion. headache. HPI Narrative SEBASTIEN OWENS, is a 72 M who presents presents with headache and confusion. Patienthas a history of traumatic brain injury many years ago has had what sounds like history of hepatic encephalopathy. For the preceding several days, patient has been not feeling well. Went to bed last night okay but then woke up today with a severe headache. With his history of traumatic brain injury and whiplash, he has had a history of neck pain. He does not have any neck pain but severe headache on the top of his head. He also has a photophobia with that as well. He does not typically get headaches or migraines like this. He is also noted yamel confused and in the emergency room, was wandering aimlessly. Patient was brought to the room and underwent a stroke work-up with a head CT and CTA of thehead and neck. Those tests were negative. Patient notes that he is feeling better and his is present and states that he is more alert at this time. FORMERLY [facility], [facility]–1983 Medical History Alcoholism Anemia Anxiety Atherosclerosis of coronary artery without angina pectoris Back pain BiPAP (biphasic positive airway pressure) dependence Chronic pain Coronary artery disease Dementia Depression Essential (primary) hypertension GI hemorrhage Gout History of stress test Hyperlipidemia Hypertension Myocardial infarct Non-smoker NSTEMI (non-ST elevated myocardial infarction) (04/13/18) Obesity Pancreatitis Pulmonary embolism Rheumatoid arthritis Sleep apnea Traumatic brain injury Home Medications allopurinol 100 mg tablet 100 mg PO BID gout 11/07/20 [History Last Taken 08/27/22] aspirin 81 mg chewable tablet 81 mg PO DAILY thinner 11/07/20 [History Last Taken 08/28/22] cholecalciferol (vitamin D3) 125 mcg (5,000 unit) tablet 50,000 unit PO WE supplement 11/07/20 [History Last Taken 08/23/22] colchicine (gout) 0.6 mg tablet (Colcrys) 0.6 mg PO PRN gout 11/07/20 [History Last Taken Unknown] finasteride 5 mg tablet 5 mg PO QHS urine retention 11/07/20 [History Last Taken 08/27/22] tamsulosin 0.4 mg capsule 0.4 mg PO QHS urinary retention 11/07/20 [History Last Taken 08/27/22] alprazolam 0.5 mg tablet (Xanax) 0.5 mg PO BID anxiety 11/09/20 [History Last Taken 08/27/22] nitroglycerin 0.4 mg sublingual tablet 0.4 mg sublingual Q5M PRN Cardiac/Chest Pain #0 tabs 11/09/20 [Rx Last Taken Unknown] acetaminophen 500 mg tablet 1,000 mg (2 x 500 mg) PO Q6H PRN PRN Pain Score 1-3 #0 tabs 11/15/20 [Rx Last Taken Unknown] pantoprazole 40 mg tablet,delayed release mg PO 01/11/23 [History Last Taken Unknown] Allergy/AdvReac Type Severity Reaction Status Date / Time No Known Allergies Allergy Verified 01/11/23 09:36 Family History Mother CAD (coronary artery disease) Surgical History History of coronary artery stent placement (04/13/18) History of knee surgery History of repair of rotator cuff Hx of cholecystectomy Social History household members: spouse Smoking Status: Never smoker alcohol intake: former details: Sober since 2010. substance use type: does not use ROS ROS Narrative As chronic abdominal issues with pain and nausea. Has been worked up extensively for this and taking Bijal-Holcomb and famotidine for his chronic abdominal issues. Has intermittent visual blurriness which has been ongoing formonths now. Did recently get new glasses which has not helped that issue. All review of systems were negative except as mentioned above in the history of present illness and the other review of systems. Vital Signs Vital Signs Vital Signs: 01/11/23 09:33 01/11/23 09:57 01/11/23 09:59 Temperature 36.6 C Temperature Source Temporal Pulse Rate 76 84 Respiratory Rate 14 15 Blood Pressure 151/92 H 190/86 H Blood Pressure Mean 111 120 Pulse Ox 98 98 98 Oxygen Delivery Method Room Air Room Air Room Air 01/11/23 09:37 01/11/23 10:07 01/11/23 09:37 Temperature 36.6 C 36.6 C Temperature Source Temporal Temporal Pulse Rate 76 81 76 Respiratory Rate 14 15 14 Blood Pressure 151/92 H 190/86 H 151/92 H Blood Pressure Mean 111 120 111 Pulse Ox 98 98 98 Oxygen Delivery Method Room Air Room Air Room Air 01/11/23 10:33 01/11/23 11:00 01/11/23 11:02 Temperature Temperature Source Pulse Rate 73 76 70 Respiratory Rate 20 H 18 11 L Blood Pressure 167/96 H 169/87 H 152/92 H Blood Pressure Mean 119 114 112 Pulse Ox 96 96 97 Oxygen Delivery Method Room Air Room Air 01/11/23 12:47 01/11/23 13:18 01/11/23 14:15 Temperature Temperature Source Pulse Rate 70 73 91 Respiratory Rate 18 20 H 16 Blood Pressure 152/85 H 149/80 H 162/80 H Blood Pressure Mean 107 103 107 Pulse Ox 96 95 97 Oxygen Delivery Method Room Air Room Air Room Air Weight Weight: 88.451 kg Body Mass Index (BMI) 31.4 Physical Exam Const alert and no apparent distress Constitutional Narrative: Initially was verbally confrontational with me but was able to calm down and wasapologetic later. General Appearance: cooperative HEENT normocephalic, head/scalp atraumatic and hearing grossly normal bilaterally Eyes PERRL, EOMs intact bilaterally and conjunctivae normal Neck no lymphadenopathy Neck Narrative: No meningismus Resp normal respiratory effort, no retractions, no use of accessory muscles and clearto auscultation bilaterally Cardio regular rate, regular rhythm, S1 normal heart sound and S2 normal heart sound GI normal to inspection, nondistended, normoactive bowel sounds, soft to palpation,non-tender and non-distended Extremity normal to inspection and full ROM Skin Skin Narrative: No rashes or sores. Neuro oriented x3, CN's II-XII intact bilaterally, moves all extremities and no focal motor deficits Neuro Narrative: Sensation grossly intact throughout Sensorium / Orientation: awake, alert and oriented to person Speech: speech normal Motor Exam: strength 5/5 throughout Psych affect normal Results Lab / Micro Data Attestation: I reviewed the patient's lab results. 01/11/23 09:45 01/11/23 09:45 Labs: Laboratory Results - last 24 hr 01/11/23 09:45: WBC 8.3, RBC 4.53 L, Hgb 14.5, Hct 43.0, MCV 94.9 H, MCH 32.0, MCHC 33.7, RDW Std Deviation 46.2 H, RDW Coeff of Leeann 13.4, Plt Count 179, MPV 9.3, Immature Gran % (Auto) 1.800 H, Neut % (Auto) 61.3, Lymph % (Auto) 24.8, Glades % (Auto) 9.4, Eos % (Auto) 1.9, Baso % (Auto) 0.8, Absolute Neuts (auto) 5.1, Absolute Lymphs (auto) 2.05, Nucleated RBC % 0, PT 12.3, INR 0.9, APTT 25.6, Sodium 141, Potassium 4.2, Chloride 109 H, Carbon Dioxide 27.0, Anion Gap 5, BUN 19 H, Creatinine 1.34 H, Estim Creat Clear Calc 44.97, Est GFR (MDRD) Af Amer 67, Est GFR (MDRD) Non-Af 56 L, BUN/Creatinine Ratio 14.2, Glucose 95, Calcium 9.0, Total Bilirubin 0.60, Direct Bilirubin 0.15, AST 22, ALT 28, Alkaline Phosphatase 66, Troponin I High Sens 18, Total Protein 7.1, Albumin 3.8, Globulin 3.3, Ethyl Alcohol < 3.0 01/11/23 10:44: Ammonia 21.0 01/11/23 11:48: Urine Color Yellow, Urine Clarity Clear, Urine pH 6.5, Ur Specific [place] 1.010, Urine Protein Negative, Urine Glucose (UA) Normal, UrineKetones Negative, Urine Occult Blood 10 H, Urine Nitrite Negative, Urine Bilirubin Negative, Urine Urobilinogen Normal, Ur Leukocyte Esterase Negative, Urine RBC 0-5 SEEN, Urine WBC 0 SEEN, Ur Squamous Epith Cells 0-5 SEEN, Urine Bacteria 0 SEEN, Urine Mucus 0 SEEN Rhythm Strip Rhythm Strip: Sinus Rhythm Rate: 80 EKG Initial EKG: Attestation: I personally reviewed and interpreted this EKG as follows: Prior EKG tracings: available for review EKG Rhythm Intrepretation: Sinus Rhythm Radiology Impression Brain CT 01/11/23 09:37 IMPRESSION: No acute intracranial process identified. Mild chronic involutional and white matter changes. N.B. : The above Results were Read Back by Monica Santizo MD to Leeroy Araujo MD, and understanding confirmed on 01/11/2023 09:56:51 (ET). Electronically Signed: Monica Santizo MD at 9:56 EDT , Head/Neck CTA 01/11/23 09:38 IMPRESSION: Right internal carotid artery with approximately 60% stenosis at its origin in the neck. No evidence for large vessel occlusion or other focal vascular abnormality in the [place] region. Electronically Signed: Monica Santizo MD at 10:17 EDT , ADDENDUM: 01/11/23 1024 IMPRESSION: Right internal carotid artery with approximately 60% stenosis at its origin in the neck. No evidence for large vessel occlusion or other focal vascular abnormality in the [place] region. N.B. : The above Results were Read Back by Monica Santizo MD to Van Umaña MD, and understanding confirmed on 01/11/2023 10:17:11 (ET). Electronically Signed: Monica Santizo MD at 10:17 EDT , ADDENDUM: 01/11/23 1026 IMPRESSION: Right internal carotid artery with approximately 60% stenosis at its origin in the neck. No evidence for large vessel occlusion or other focal vascular abnormality in the [place] region. N.B. : The above Results were Read Back by Monica Santizo MD to Van Umaña MD, and understanding confirmed on 01/11/2023 10:19:25 (ET). Electronically Signed: Monica Santizo MD at 10:17 EDT Reading Location ID and State: [id number] / [place] Tel , Service support , Chest X-Ray 01/11/23 10:55 IMPRESSION: No acute cardiopulmonary process identified. Chronic left upper lobe fibrosis. Electronically Signed: Monica Santizo MD at 11:43 EDT , Assessment & Plan Assessment/Plan (1) Acute encephalopathy: PLAN: Improved at this time Etiology is unclear but could include due to his underlying traumatic brain injury but cannot rule out underlying stroke or encephalitis/meningitis, also could be atypical migraine. I recommended to he and his for him to undergo stroke work-up with an MRI of the brain, 2D echocardiogram, therapy evaluations and also an encephalitis/meningitis evaluation including a lumbar puncture. They were concerned about lumbar puncture as it could cause serious pain. I explained to them that the procedure is generally well-tolerated and is generally low risk though there are instances of spinal headaches which could be treated with caffeine and/or a blood patch. If still like to hold off on doing that until the stroke work-up has been completed then they may consider a lumbar puncture if the stroke work-up is negative. I will start patient on empiric antibiotics with ampicillin, vancomycin as well as as empiric antivirals with acyclovir. If there is evidence of a stroke likely recommend discontinuing antibiotics and antivirals. (2) Migraine: QUALIFIERS: Migraine type: without aura Status migrainosus presence: without status migrainosus Intractability: not intractable QualifiedCode(s): G43.009 - Migraine without aura, not intractable, without status migrainosus PLAN: Improved. Cannot rule out encephalitis/meningitis. Though meningitis would seem less likely as he does not appear to be toxic nor have any meningismus. Patient did receive ketorolac in the emergency room which did help and will havethat available as needed. If headache does get worse and may consider 10 mg of IV dexamethasone. Would avoid narcotics due to the rebound phenomenon. PLAN: Plan Chronic conditions * Gout: Not in exacerbation. Continue with allopurinol and as needed colchicine * BPH: Continue with tamsulosin * Anxiety: Continue with as needed alprazolam. Did review the patient's OARRS and he does receive that on a scheduled basis. * Traumatic brain injury: Patient was initially confrontational with me but did eventually calm down. Would be concerned about impulsive behaviors potentially during this patient's hospitalization. He is certainly appropriate at this time. Will try reorienting and de-escalation if he does have further issues during this hospitalization. * Coronary disease: Currently stable. Status post PCI in 2018. Continue with aspirin for now. VTE prophylaxis: SCDs for now. Holding off on chemical prophylaxis in case patient requires a lumbar puncture. Charges/Coding Visit Charges Inpatient E&M: 47125 Init Hosp L3 01/11/23 9233 <Electronically signed by Chaparro Johns DO> Cosigner Signature (if applicable): CC: Dr. Chaparro Johns DO; Dr. Afua Velez DO~ Signed [facility] Work Phone: History and physical note Author Mechelle Marquez [facility] August 03, 2023 7:34pm Note Date/Time August 03, 2023 6:39 pm [facility] Medical Records Department [address] [place] [address] History & Physical Exam 08/03/23 1828 MR#: [id number] Acct: [id number] Name: SEBASTIEN OWENS Rep #:[id number] : 1950 73 From: Mechelle Marquez MD PCP: Dr. Afua Velez, DO Status:ADM IN Location: [facility]- 1 HPI - General General Date of Admission: 08/03/23 Date of Service: 08/03/23 Chief Complaint: chest pain HPI Narrative SEBASTIEN OWENS, is a 73 M with a PMH as outlined who who presents via the ED on 08/03/2023 with a complaint of chest pain. 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 However, he started having severe chest pain this afternoon at around 13:45. He denied any lightheadedness or dizziness,and admitted to a headache. He denied any shortness of breath. Review of systemsis otherwise negative. He also said he had been having ongoing GI issues, with chronic constipation and has been scheduled to have a GI scope after his cath. He had had a stress test on 07/26/2023 which showed mild to moderate yvette infarctischemia and no ischemic changes. VItals in the ED were temp of 97.6F, WV of 74, BP of 118/69 and RR of 23. He wassaturating at 93% on 2L of oxygen. CBC was largely unremarkable, and BMP showed bicarb of 18 with anion gap of 10. Troponin and its delta were both negative. EKG showed PVCs but no acute ST changes. He is being admitted to be managed for unstable angina. FORMERLY [facility], 1928–1983 Medical History (Updated 08/03/23 @ 18:[address] Mechelle Marquez MD) Alcoholism Anemia Anxiety Atherosclerosis of coronary artery without angina pectoris Back pain BiPAP (biphasic positive airway pressure) dependence Chronic pain Coronary artery disease Dementia Depression Essential (primary) hypertension GI hemorrhage Gout History of stress test Hyperlipidemia Hypertension Myocardial infarct Non-smoker NSTEMI (non-ST elevated myocardial infarction) (04/13/18) Obesity Pancreatitis Pulmonary embolism Rheumatoid arthritis Sleep apnea Traumatic brain injury Unstable angina Home Medications allopurinol 100 mg tablet 200 mg PO QHS gout 11/07/20 [History Last Taken 08/02/23] aspirin 81 mg chewable tablet 81 mg PO DAILY thinner 11/07/20 [History Last Taken 08/03/23] cholecalciferol (vitamin D3) 125 mcg (5,000 unit) tablet 50,000 unit PO WE supplement 11/07/20 [History Last Taken 08/01/23] colchicine 0.6 mg tablet (Colcrys) 0.6 mg PO PRN gout 11/07/20 [History Last Taken Unknown] finasteride 5 mg tablet 5 mg PO QHS urine retention 11/07/20 [History Last Taken 08/02/23] tamsulosin 0.4 mg capsule 0.4 mg PO QHS urinary retention 11/07/20 [History Last Taken 08/02/23] alprazolam 0.5 mg tablet (Xanax) 0.25 mg PO .COMPLEX anxiety 11/09/20 [History Last Taken 08/03/23 09:00] nitroglycerin 0.4 mg sublingual tablet 0.4 mg sublingual Q5M PRN Cardiac/Chest Pain #0 tabs 11/09/20 [Rx Last Taken Unknown] acetaminophen 500 mg tablet 1,000 mg (2 x 500 mg) PO Q6H PRN PRN Pain Score 1-3 #0 tabs 11/15/20 [Rx Last Taken Unknown] pantoprazole 40 mg tablet,delayed release 40 mg PO BID indigestion 01/11/23 [History Last Taken 08/03/23 10:00] metoprolol tartrate 25 mg tablet 25 mg PO BID #180 tabs 04/26/23 [Rx Last Taken 08/03/23 10:00] famotidine 40 mg tablet 40 mg PO BID 06/14/23 [History Last Taken 08/03/23 10:00] ondansetron 4 mg disintegrating tablet 4 mg PO Q8-12H PRN nausea 06/14/23 [History Last Taken 08/03/23] rosuvastatin 10 mg tablet 10 mg PO QHS 06/14/23 [History Last Taken 08/02/23] amlodipine 5 mg tablet 5 mg PO QHS 08/03/23 [History Last Taken 08/02/23] levofloxacin 500 mg tablet 500 mg PO Q24H 08/03/23 [History Last Taken 08/03/23] oxybutynin chloride 10 mg tablet,extended release 24 hr 10 mg PO QHS 08/03/23 [History Last Taken 08/02/23] Allergy/AdvReac Type Severity Reaction Status Date / Time isosorbide AdvReac Mild Headache Verified 08/03/23 14:46 Family History Mother CAD (coronary artery disease) Surgical History History of coronary artery stent placement (04/13/18) History of knee surgery History of repair of rotator cuff Hx of cholecystectomy Social History household members: spouse Smoking Status: Never smoker alcohol intake: former details: Sober since 2010. substance use type: does not use ROS Review of Systems ROS Unobtainable: Denies due to encephalopathy Constitutional Constitutional: Reports fatigue and malaise; Denies anorexia, chills, fever(s) or weakness Eyes Eyes: Denies change in vision ENT HEENT: Denies dysphagia or headache(s) Cardiovascular Cardiovascular: Reports chest pain; Denies edema, orthopnea, palpitations, paroxysmal nocturnal dyspnea or syncope Respiratory/Chest Respiratory/Chest: Denies cough, shortness of breath at rest or shortness of breath with exertion Gastrointestinal Gastrointestinal: Denies abdominal pain, nausea or vomiting Genitourinary Genitourinary: Denies dysuria Musculoskeletal Musculoskeletal: Denies back pain Neurologic Neurologic: Denies confusion, dizziness, focal weakness, headache(s), numbness, seizures or weakness Psychiatric Psychiatric: Denies anxiety Vital Signs Vital Signs Vital Signs: 08/03/23 14:46 08/03/23 14:52 08/03/23 15:10 Temperature 97.6 F L Temperature Source Temporal Pulse Rate 91 Respiratory Rate 18 Respiratory Effort Normal Blood Pressure Blood Pressure Mean Pulse Ox 96 Oxygen Delivery Method Room Air Nasal Cannula Oxygen Flow Rate (L/min) 2 08/03/23 15:14 08/03/23 15:15 08/03/23 16:00 Temperature Temperature Source Pulse Rate 85 80 68 Respiratory Rate 19 H 18 Respiratory Effort Blood Pressure 145/97 H 108/54 L 118/69 Blood Pressure Mean 71 85 Pulse Ox 98 96 Oxygen Delivery Method Oxygen Flow Rate (L/min) 08/03/23 17:00 08/03/23 18:00 Temperature Temperature Source Pulse Rate 75 74 Respiratory Rate 24 H 23 H Respiratory Effort Blood Pressure Blood Pressure Mean Pulse Ox 97 93 Oxygen Delivery Method Oxygen Flow Rate (L/min) Weight Weight: 199 lb 4.766 oz Body Mass Index (BMI) 32.1 Physical Exam Const alert, oriented x3, no apparent distress and well nourished General Appearance: cooperative and well developed HEENT normocephalic, head/scalp atraumatic and moist oral mucous membranes Eyes PERRL and EOMs intact bilaterally Neck no lymphadenopathy and supple Lymph Lymphatic: no lymphadenopathy noted and no lymphedema noted Resp normal respiratory effort, normal air movement and clear to auscultation bilaterally Cardio regular rate, regular rhythm, S1 normal heart sound, S2 normal heart sound and no murmurs GI normal to inspection, nondistended, normoactive bowel sounds, soft to palpation and non-tender Extremity normal capillary refill, no clubbing, cyanosis or edema and no calf tenderness General Extremity: no tenderness to palpation of joints or extremities Skin General Skin Exam: no breakdown and turgor normal Neuro CN's II-XII intact bilaterally, no focal motor deficits and no sensory deficits noted Motor Exam: strength 5/5 throughout and general weakness Psych thought process normal and cooperative Appearance: appropriate Results Lab / Micro Data 08/03/23 15:09 08/03/23 15:09 Labs: Laboratory Results - last 24 hr 08/03/23 15:09: WBC 10.1, RBC 4.36 L, Hgb 13.5, Hct 40.9, MCV 93.8, MCH 31.0, MCHC 33.0, RDW Std Deviation 44.4 H, RDW Coeff of Leeann 13.0, Plt Count 184, MPV 10.2, Immature Gran % (Auto) 1.700 H, Neut % (Auto) 57.5, Lymph % (Auto) 29.0, Glades % (Auto) 8.9, Eos % (Auto) 2.2, Baso % (Auto) 0.7, Absolute Neuts (auto) 5.8, Absolute Lymphs (auto) 2.92, Nucleated RBC % 0, PT 12.6, INR 0.9, APTT 32.8, Sodium 143, Potassium 4.0, Chloride 115 H, Carbon Dioxide 18.0 L, Anion Gap 10, BUN 20 H, Creatinine 1.24, Estim Creat Clear Calc 55.86, Est GFR (MDRD) Af Amer 74, Est GFR (MDRD) Non-Af 61, BUN/Creatinine Ratio 16.1, Glucose 88, Calcium 9.0, Magnesium 2.3, Total Bilirubin 0.30, AST 22, ALT 27, Alkaline Phosphatase 65, Troponin I High Sens 21, Total Protein 7.1, Albumin 3.8, Globulin 3.3, Albumin/Globulin Ratio 1.2, Lipase 61 08/03/23 17:20: Troponin I High Sens 23 Rhythm Strip Rhythm Strip: Sinus Rhythm Rate: 86 Ectopy: PVC(s) Imaging Radiology Impression Chest X-Ray 08/03/23 15:10 IMPRESSION: No significant interval change. Electronically Signed: Monica Santizo MD at 15:28 EST , Assessment & Plan Assessment/Plan (1) Unstable angina: PLAN: Plan #Chest pain in the setting of unstable angina * admit to PCU * had an abnormal stress test at the end of June 2023. Is scheduled to have a cardiac cath on 08/14/2023. * However he woke up with chest pain today which was pressure-like and relentless. * EKG shows PVCs but no acute ST changes. * Troponins x 2 are negative. * Consult cardiology. P.o. aspirin, sublingual nitroglycerin as needed * Continue metoprolol and high intensity statin. Consult cardiology for likely cath on Sunday unless he deteriorates over the weekend. * * #CAD s/p stents * On aspirin, high intensity statin and metoprolol. #Hypertension: On metoprolol and amlodipine. #BPH: On Flomax and finasteride. DVT prophylaxis: Lovenox COde status: full code * Patient counseled extensively about different types of CODE STATUS including full code, DNR CCA and DNR CCA. Patient elects to be full code. Total ihnu-ns-engz time 16 minutes. Charges/Coding Visit Charges Inpatient E&M: 13182 Init Hosp L3 Procedures Hospitalists Procedures: 85425 Advncd Care Plan 30 Min 08/03/231933 <Electronically signed by Mechelle Marquez MD> Cosigner Signature (if applicable): CC: Dr. Afua Velez DO; Dr. Mechelle Marquez MD~ Signed [facility] Work Phone: Hospital Discharge instructions No data available for this section [facility] Progress note No data available for this section [facility] Reason for referral (narrative)* Diagnostic Procedure Only (Routine) - Closed Specialty Diagnoses / Procedures Referred By Tri martinez Referred To Contact XR IMAGING Diagnoses Constipation, unspecified constipation type Procedures XR ABDOMEN 1V SUPINE RADIOLOGIC EXAM ABDOMEN 1 VIEW Stanley Sandoval MD [address] [address] Xr Imaging [id number] Referral ID Status Reason Start Date Expiration Date V isits Requested Visits Authorized [id number] Closed Auto-Generate d Referral 07/13/2023 08/11/2024 1 1 [facility] for referral (narrative)* Outpatient Procedure (Routine) - Closed Specialty Diagnoses / Procedures Referred By Tri martinez Referred To Contact [facility] Diagnoses Constipation, unspecified constipation type Nausea Procedures COLONOSCOPY DIAGNOSTIC COLONOSCOPY FLX DX W/COLLJ SPEC WHEN PFRMD Stanley Sandoval MD [address] [address] [facility] [place] [facility] [place] [id number] Referral ID Status Reason Start Date Expiration Date V isits Requested Visits Authorized [id number] Closed Auto-Generate d Referral 07/18/2023 07/18/2024 1 1 * Outpatient Procedure (Routine) - Closed Specialty Diagnoses / Procedures Referred By Tri martinez Referred To Contact [facility] Diagnoses Constipation, unspecified constipation type Nausea Procedures EGD DIAGNOSTIC ESOPHAGOGASTRODUODENOSCO PY TRANSORAL DIAGNOSTIC Stanley Sandoval MD [address] [facility] [place] [address] [place] [id number] Referral ID Status Reason Start Date Expiration Date V isits Requested Visits Authorized [id number] Closed Auto-Generate d Referral 07/18/2023 07/18/2024 1 1 [facility] for referral (narrative)No reason for referral information [facility] Work Phone: Reason for visit Narrative* Diagnostic Procedure Only (Routine) - Closed Specialty Diagnoses / Procedures Referred By Tri martinez Referred To Contact XR IMAGING Diagnoses Constipation, unspecified constipation type Procedures XR ABDOMEN 1V SUPINE RADIOLOGIC EXAM ABDOMEN 1 VIEW Stanley Sandoval MD [address] [address] [place] [address] Referral ID Status Reason Start Date Expiration Date V isits Requested Visits Authorized [id number] Closed Auto-Generate d Referral 07/13/2023 08/11/2024 1 1 [facility] for visit Narrative* Outpatient Procedure (Routine) - Closed Specialty Diagnoses / Procedures Referred By Tri martinez Referred To Contact [facility] Diagnoses Constipation, unspecified constipation type Nausea Procedures COLONOSCOPY DIAGNOSTIC COLONOSCOPY FLX DX W/COLLJ SPEC WHEN PFRMD Stanley Sandoval MD [address] [address] [facility] [place] [address] [place] [address] Referral ID Status Reason Start Date Expiration Date V isits Requested Visits Authorized [id number] Closed Auto-Generate d Referral 07/18/2023 07/18/2024 [address] [facility] Summary Purpose Family History No Family History Records Found Relationship Condition Age at Onset Recorded Date/T yane mother Coronary artery disease Unknown Advance Directives No Advanced Directives Records Found Advance Directive Response Recorded Date/ Time Advance Directives Yes January 17, 2016 1:46pm Living Will Yes November 11, 2020 2:42pm Power of Automotive Paint Technician Yes November 11 2:42pm Documents on File Type Date Recorded Patient Third Officer Expl anation Advance Directive(s) 07/11/2021 9:36 AM Advance Directive Response Recorded Date/ Time Advance Directives Yes January 17, 2016 1:46pm Living Will No August 28, 2022 1:20pm Power of Automotive Paint Technician No August 28 1:20pm Advance Directive Response Recorded Date/ Time Advance Directives Yes January 17, 2016 1:46pm Living Will No August 28, 2022 3:45pm Power of Automotive Paint Technician No August 28 3:45pm Advance Directive Response Recorded Date/ Time Name of Medical Power of Automotive Paint Technician January 11, 2023 10:04am Advance Directives Yes January 17, 2016 1:46pm Living Will Yes January 11 10:04am Power of Automotive Paint Technician Yes January 11, 2 023 10:04am Advance Directive Response Recorded Date/ Time Name of Medical Power of Automotive Paint Technician Rich Owens January 11, 2023 3:56pm Advance Directives Yes January 17, 2016 1:46pm Living Will Yes January 11 3:56pm Power of Automotive Paint Technician Yes January 11, 2 023 3:56pm Advance Directive Response Recorded Date/ Time Name of Medical Power of Automotive Paint Technician Rich Owens January 11, 2023 2:56pm Advance Directives Yes January 17, 2016 12:46pm Living Will Yes January 11 2:56pm Power of Automotive Paint Technician Yes January 11, 2 023 2:56pm Documents on File Type Date Recorded Patient Third Officer Expl anation Advance Directive(s) 07/11/2021 9:36 AM Advance Directive Response Recorded Date/ Time Advance Directives Yes January 17, 2016 12:46pm Living Will Yes January 11 2:56pm Power of Automotive Paint Technician Yes January 11, 2 023 2:56pm Advance Directive Response Recorded Date/ Time Advance Directives Yes January 17, 2016 12:46pm Living Will No August 03, 2023 2:52pm Power of Automotive Paint Technician No August 02 2:52pm Advance Directive Response Recorded Date/ Time Name of Medical Power of Automotive Paint Technician Timothy Owens August 03, 2023 9:24pm Advance Directives Yes January 17, 2016 1:46pm Living Will Yes August 03, 2023 9:24pm Power of Automotive Paint Technician Yes August 02 9:24pm Advance Directive Response Recorded Date/ Time Name of Medical Power of Automotive Paint Technician Timothy Owens August 03, 2023 9:24pm Name of Medical Power of Automotive Paint Technician rich owens August 23, 2023 1:10pm Advance Directives Yes January 17, 2016 1:46pm Living Will Yes August 23, 2023 1:10pm Power of Automotive Paint Technician Yes August 22 1:10pm Advance Directive Response Recorded Date/ Time Living Will No May 29 6:50pm Power of Automotive Paint Technician No May 29 6:50pm Advance Directives Yes January 17, 2016 1:46pm Advance Directive Response Recorded Date/ Time Advance Directives Yes January 17, 2016 1:46pm Hospital Course Note HNO ID: [id number] Author: Keyona Jimenez Service: Interventional Cardiology Author Type: Physician Type: Discharge Summary Filed: 11/28/2019 7:42 AM Note Text: DISCHARGE NOTE (Patient Admitted Less than 48 Hours) SERVICE DATE: 11/28/2019 SERVICE TIME: 7:38 am ADMISSION DATE: 11/27/2019 DISCHARGE DISPOSITION: Home/Self Care Discharge Physical Exam: VITAL SIGNS: BP 146/69 Pulse 62 Temp 36.4 ?C (97.5 ?F) (Oral) Resp 16 Ht 167.6 cm (5' 6) Wt 98.1 kg (216 lb 4.3 oz) SpO2 95% BMI 34.91 kg/m? Normal examination Right arm small hematoma Condition is stable DIET: Regular , Cardiac ACTIVITY AFTER DISCHARGE: Resume pre-hospital activity FOLLOW UP CARE REQUIRED: Dr ALEKSANDAR JIMENEZ in 2 weeks DISCHARGE MEDICATIONS (ONLY ACTIVATE WHEN READY TO DISCHARGE): Current Discharge Medication List CONTINUE these medications which have NOT CHANGED aspirin 324 mg Take 324 mg by mouth one time only. MELATONIN ORAL 10 mg Take 10 mg by mouth daily at bedtime. ALPRAZolam (XANAX) 0.5 mg Take 0.5 mg by (more content not included)... Note HNO ID: [id number] Author: Keyona Jimenez Service: Interventional Cardiology Author [...] right wrist with 1% lidocaine. A pre-flushed 6-Mexican sheath was inserted into the Right radial artery via the Seldinger technique without complications. Retrograde percutaneous diagnostic coronary angiography and left ventriculography were performe (more content not included)... Procedure Findings Note HNO ID: [id number] Author: Keyona Jimenez Service: Interventional Cardiology Author [...] right wrist with 1% lidocaine. A pre-flushed 6-Mexican sheath was inserted into the Right radial artery via the Seldinger technique without complications. Retrograde percutaneous diagnostic coronary angiography and left ventriculography were performe (more content not included)... Chief Complaint and Reason for Visit Chief Complaint BREATH TEST INTERMITTENT BRADYCARDIA INTERMITTENT BRADYCARDIA *IV & ORAL CONTRAST* PERSISTENT EPIGASTRIC PAIN Chief Complaint *IV & ORAL CONTRAST* PERSISTENT EPIGASTRIC PAIN DYSPNEA, ELEVATED DDIMER Chief Complaint SYNCOPE, CP, DYSPNEA Reason for Visit Injury of shoulder, left Syncope Unstable angina Chief Complaint SYNCOPE, CP, DYSPNEA SYNCOPE, CP, DYSPNEA Reason for Visit Injury of shoulder, left Syncope Unstable angina Chief Complaint neuro neuro Chief Complaint CONFUSION. HEADACHE. neuro Reason for Visit Acute encephalopathy Migraine Chief Complaint CONFUSION. HEADACHE. neuro CONFUSION. HEADACHE. S/P [facility] 08/29/22 SYNCOPE Reason for Visit Acute encephalopathy Migraine Hyperlipidemia Syncope Coronary artery disease Hypertension Chief Complaint SYNCOPE 2 M FU CHEST PAIN CHEST PAIN Amb Documentation Reason for Visit Chest pain Hyperlipidemia Coronary artery disease Hypertension Chief Complaint SYNCOPE 2 M FU CHEST PAIN CHEST PAIN Amb Documentation UNSTABLE ANGINA Reason for Visit Chest pain Hyperlipidemia Coronary artery disease Hypertension Unstable angina Chief Complaint 2 M FU CHEST PAIN CHEST PAIN Amb Documentation UNSTABLE ANGINA UNSTABLE ANGINA UNSTABLE ANGINA UNSTABLE ANGINA UNSTABLE ANGINA Coronary artery disease UNSTABLE ANGINA UNSTABLE ANGINA UNSTABLE ANGINA UNSTABLE ANGINA UNSTABLE ANGINA UNSTABLE ANGINA Reason for Visit Chest pain Hyperlipidemia Coronary artery disease Hypertension Abnormal nuclear stress test CAD S/P percutaneous coronary angioplasty Cardiopulmonary arrest Chest pain Hyperlipidemia Multifocal PVCs with pairing Ventricular tachycardia Coronary artery disease Essential (primary) hypertension Hypertension Unstable angina Chief Complaint 2 M FU CHEST PAIN CHEST PAIN Amb Documentation UNSTABLE ANGINA UNSTABLE ANGINA UNSTABLE ANGINA UNSTABLE ANGINA UNSTABLE ANGINA Coronary artery disease UNSTABLE ANGINA UNSTABLE ANGINA UNSTABLE ANGINA UNSTABLE ANGINA UNSTABLE ANGINA UNSTABLE ANGINA S/P [facility] 08/07 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 SYMPTOMATIC BRADYCARDIC, HISTORY OF SYMPTOMATIC BRADYCARDIC, HISTORY OF SYMPTOMATIC BRADYCARDIC, HISTORY OF Reason for Visit Chest pain Chest pain Unstable angina Bradycardia History of coronary artery stent placement Hyperlipidemia Bradycardia History of coronary artery disease History of hypertension Near syncope STEMI (ST elevation myocardial infarction) Chronic kidney disease (CKD), stage III (moderate) History of coronary artery stent placement Chief Complaint 2 M FU CHEST PAIN CHEST PAIN Amb Documentation UNSTABLE ANGINA UNSTABLE ANGINA UNSTABLE ANGINA UNSTABLE ANGINA UNSTABLE ANGINA Coronary artery disease UNSTABLE ANGINA UNSTABLE ANGINA UNSTABLE ANGINA UNSTABLE ANGINA UNSTABLE ANGINA UNSTABLE ANGINA S/P [facility] 08/07 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 SYMPTOMATIC BRADYCARDIC, HISTORY OF SYMPTOMATIC BRADYCARDIC, HISTORY OF SYMPTOMATIC BRADYCARDIC, HISTORY OF SELVIN SYMPTOMATIC BRADYCARDIC, HISTORY OF Amb Documentation Reason for Visit Chest pain Chest pain Unstable angina Bradycardia History of coronary artery stent placement Hyperlipidemia Bradycardia History of coronary artery disease History of hypertension STEMI (ST elevation myocardial infarction) Chronic kidney disease (CKD), stage III (moderate) History of coronary artery stent placement Near syncope Chief Complaint Admit Date CONFUSION May 29, 2024 4: 50pm Medications Administered Section Inactive Administered Medications - up to 3 most recent administrations Medication Order MAR Action Action Date Dose Rate Site fluorescein-benoxinate 0.25-0.4 % 1 Drop (FLURESS) 1 Drop, BOTH EYES, DIRECTED, Starting on Sun03/06/23 at 1530, Until Sun03/07/23 at 0329, Administer for applanation tonometry. In the event of a Fluress shortage, administer [place]-Fluor 1 drop into both eyes as directed [...] ized section and content) DATE CREATED AUTHOR 12/18/2019 [facility] DATE CREATED AUTHOR AUTHOR'S ORGANIZ ATION 01/21/2020 [facility] DATE CREATED AUTHOR AUTHOR'S ORGANIZ ATION 09/19/2023 [facility] ([place]) DATE CREATED AUTHOR AUTHOR'S ORGANIZ ATION 02/08/2024 [facility] DATE CREATED AUTHOR AUTHOR'S ORGANIZ ATION 08/07/2024 [facility] DATE CREATED AUTHOR AUTHOR'S ORGANIZ ATION 01/15/2025 [facility] DATE CREATED AUTHOR AUTHOR'S ORGANIZ ATION 04/08/2025 [facility] Goals (unrecognized section and content) Goals may be documented in a n alternate section Source Comments (unrecognize d section and content) In the event this informatio n is protected by the Federal Confidentiality of Alcohol and Drug Abuse Patient Records regulations: The Federal rules restrict any use of the information to criminally investigate or prosecute any alcohol or drug abuse patient.[facility] the event this information is protected by the Federal Confidentiality of Alcohol and Drug Abuse Patient Records regulations: The Federal rules restrict any use of the information to criminally investigate or prosecute any alcohol or drug abuse patient.[facility] the event this information is protected by the Federal Confidentiality of Alcohol and Drug Abuse Patient Records regulations: The Federal rules restrict any use of the information to criminally investigate or prosecute any alcohol or drug abuse patient.[facility] the event this information is protected by the Federal Confidentiality of Alcohol and Drug Abuse Patient Records regulations: The Federal rules restrict any use of the information to criminally investigate or prosecute any alcohol or drug abuse patient.[facility] the event this information is protected by the Federal Confidentiality of Alcohol and Drug Abuse Patient Records regulations: The Federal rules restrict any use of the information to criminally investigate or prosecute any alcohol or drug abuse patient.[facility] the event this information is protected by the Federal Confidentiality of Alcohol and Drug Abuse Patient Records regulations: The Federal rules restrict any use of the information to criminally investigate or prosecute any alcohol or drug abuse patient.[facility] the event this information is protected by the Federal Confidentiality of Alcohol and Drug Abuse Patient Records regulations: The Federal rules restrict any use of the information to criminally investigate or prosecute any alcohol or drug abuse patient.[facility] the event this information is protected by the Federal Confidentiality of Alcohol and Drug Abuse Patient Records regulations: The Federal rules restrict any use of the information to criminally investigate or prosecute any alcohol or drug abuse patient.[facility] the event this information is protected by the Federal Confidentiality of Alcohol and Drug Abuse Patient Records regulations: The Federal rules restrict any use of the information to criminally investigate or prosecute any alcohol or drug abuse patient.[facility] the event this information is protected by the Federal Confidentiality of Alcohol and Drug Abuse Patient Records regulations: The Federal rules restrict any use of the information to criminally investigate or prosecute any alcohol or drug abuse patient.[facility] the event this information is protected by the Federal Confidentiality of Alcohol and Drug Abuse Patient Records regulations: The Federal rules restrict any use of the information to criminally investigate or prosecute any alcohol or drug abuse patient.[facility] Care Teams (unrecognized sec tion and content) Network Technology Instructor Relationship Specialty Start Date End Date Afua Velez DO [address] [place] [address] PCP - General Family Practice 07/11/21 Hannah Kowalski MD [address] [place], [place] [id number] Primary Staff Physician Cardiology 08/13/18 Team Status: Active Member Role Status Dates Dr. Afua Middleton MD Family Provider Active Dr. Afua Velez DO Primary Care Provider Active Team Status: Active Member Role Status Dates Dr. Afua Velez DO Primary Care Provider Active Dr. Van Umaña MD Emergency Provider Active Dr. Rosey England MD Admit Provider, Attending Prov ider Active Team Status: Active Member Role Status Dates Dr. Afua Velez DO Primary Care Provider Active Dr. Thanh Prajapati MD Attending Provider Active Team Status: Active Member Role Status Dates Dr. Afua Velez DO Primary Care Provider Active Dr. Van Umaña MD Emergency Provider Active Dr. Rosey England MD Admit Provider, Other Provider Active Dr. Nabil Salcedo MD Other Provider Active Dr. Stevan Max MD Attending Provider, Other Provider Active Team Status: Active Member Role Status Dates Dr. Afua Velez DO Primary Care Provider Active Dr. Nabil Salcedo MD Attending Provider Activ e Team Status: Inactive Member Role Status Dates Dr. Afua Velez DO Primary Care Provider Active Dr. Van Umaña MD Emergency Provider Active Dr. Rosey England MD Admit Provider, Other Provider Active Dr. Nabil Salcedo MD Other Provider Active Dr. Stevan Max MD Attending Provider Active Team Status: Active Member Role Status Dates Dr. Afua Velez DO Primary Care Provider Active Dr. Van Umaña MD Emergency Provider Active Dr. Chaparro Johns DO Attending Provider Active Team Status: Inactive Member Role Status Dates Dr. Afua Velez DO Primary Care Provider Active Dr. Van Umaña MD Emergency Provider Active Team Status: Inactive Member Role Status Dates Dr. Afua Velez DO Primary Care Provider Active Dr. Van Umaña MD Emergency Provider Active Dr. Chaparro Johns DO Admit Provider, Other Provider A ctive Dr. Stevan Max MD Attending Provider Active Network Technology Instructor Relationship Specialty Start Date End Date Afua Velez DO [facility] [place] [id number] PCP - General Family Medicine 07/11/21 Hannah Kowalski MD [address] [place], [place] [id number] Primary Staff Physician Cardiology 08/13/18 Network Technology Instructor Relationship Specialty Start Date End Date Afua Velez DO [facility] [place], [place] [id number] PCP - General Family Medicine 07/11/21 Hannah Kowalski MD [address] [place] [address] Primary Staff Physician Cardiology 08/13/18 Team Status: Active Member Role Status Dates Dr. Afua Velez DO Primary Care Provider Active Dr. Van Umaña MD Emergency Provider Active Dr. Chaparro Johns DO Admit Provider, Other Provider A ctive Dr. Stevan Max MD Attending Provider, Other Provider Active Team Status: Active Member Role Status Dates Dr. Afua Velez DO Primary Care Provider Active Dr. Darnell Booth MD Attending Provider, Referring Pr ovider Active Team Status: Inactive Member Role Status Dates Dr. Afua Velez DO Primary Care Provider, Referrin g Provider Active Mary ALEXANDER, PA Attending Provider Active Team Status: Inactive Member Role Status Dates Dr. Afua Velez DO Primary Care Provider Active Mary De Jesus PA, PA Attending Provider, Referr ing Provider Active Network Technology Instructor Relationship Specialty Start Date End Date Afua Velez DO [address] [place] [address] PCP - General Family Medicine 07/11/21 Hannah Kowalski MD [address] [place] [address] Primary Staff Physician Cardiology 08/13/18 Network Technology Instructor Relationship Specialty Start Date End Date Afua Velez DO [address] [place], [place] [id number] PCP - General Family Medicine 07/11/21 Hannah Kowalski MD [address] [place] [address] Primary Staff Physician Cardiology 08/13/18 Network Technology Instructor Relationship Specialty Start Date End Date Afua Velez DO [address] [place], [place] [id number] PCP - General Family Medicine 07/11/21 Hannah Kowalski MD [address] [place] [id number] Primary Staff Physician Cardiology 08/13/18 Network Technology Instructor Relationship Specialty Start Date End Date Afua Velez DO [address] [place] [address] PCP - General Family Medicine 07/11/21 Hannah Kowalski MD [address] [place] [address] Primary Staff Physician Cardiology 08/13/18 Team Status: Inactive Member Role Status Dates Dr. Afua Velez , DO Primary Care Provider, Referrin g Provider Active Sebastian Diallo DANCE THERAPIST, DANCE THERAPIST-C Attending Provider Active Team Status: Active Member Role Status Dates Dr. Afua Velez DO Primary Care Provider Active Sebastian Diallo DANCE THERAPIST, DANCE THERAPIST-C Other Provider Active Dr. Dirk Emerson MD Referring Provider, Other Provider Active Dr. Thanh Prajapati MD Attending Provider Active Team Status: Active Member Role Status Dates Dr. Afua Velez DO Primary Care Provider Active Alondra Murillo DANCE THERAPIST, DANCE THERAPIST-C Attending Provider Active Team Status: Inactive Member Role Status Dates Dr. Afua Velez DO Primary Care Provider Active Sebastian Diallo DANCE THERAPIST, DANCE THERAPIST-C Other Provider Active Dr. Dirk Emerson MD Attending Provider, Referr ing Provider Active Team Status: Active Member Role Status Dates Dr. Afua Velez DO Primary Care Provider Active Dr. Alethea Jackson DO Emergency Provider Active Dr. Mechelle Marquez MD Admit Provider, Attending Prov ider Active Team Status: Active Member Role Status Dates Dr. Afua Velez DO Primary Care Provider Active Dr. Alethea Jackson , DO Emergency Provider Active Dr. Mechelle Marquez MD Admit Provider, Other Provider Active Dr. Saleem Rodriguez MD Other Provider Active Dr. Fabio Tovar MD Attending Provider, Other Provid er Active Team Status: Active Member Role Status Dates Dr. Afua Velez DO Primary Care Provider Active Dr. Alethea Jackson , DO Emergency Provider Active Dr. Mechelle Marquez MD Admit Provider, Other Provider Active Dr. Saleem Rodriguez MD Attending Provider, Other Prov ider Active Dr. Fabio Tovar MD Other Provider Active Team Status: Active Member Role Status Dates Dr. Afua Velez , DO Primary Care Provider Active Dr. Alethea Jackson , DO Emergency Provider Active Dr. Mechelle Maruqez MD Admit Provider, Other Provider Active Dr. Saleem Rodriguez MD Attending Provider, Other Prov ider Active Dr. Melly Leong , DO Other Provider Active Dr. Fabio Tovar MD Other Provider Active Team Status: Active Member Role Status Dates Dr. Afua Velez , DO Primary Care Provider Active Dr. Alethea Jackson , DO Emergency Provider Active Dr. Mechelle Marquez MD Admit Provider, Other Provider Active Dr. Saleem Rodriguez MD Other Provider Active Dr. Melly Leong , DO Attending Provider, Other Provide r Active Dr. Fabio Tovar MD Other Provider Active Team Status: Active Member Role Status Dates Dr. Afua Velez , DO Primary Care Provider Active Dr. Alethea Jackson , DO Emergency Provider Active Dr. Mechelle Marquez MD Admit Provider, Other Provider Active Dr. Saleem Rodriguez MD Other Provider Active Dr. Melly Leong , DO Other Provider Active Dr. Fabio Tovar MD Other Provider Active Dr. Carlos Rojas MD Attending Provider Active Team Status: Active Member Role Status Dates Dr. Afua Velez , DO Primary Care Provider Active Dr. Carlos Rojas MD Attending Provider, Referring Pro vider Active Team Status: Inactive Member Role Status Dates Dr. Afua Velez , DO Primary Care Provider Active Dr. Alethea Jackson , DO Emergency Provider Active Dr. Mechelle Marquez MD Admit Provider, Other Provider Active Dr. Saleem Rodriguez MD Other Provider Active Dr. Melly Leong , DO Attending Provider Active Dr. Fabio Tovar MD Other Provider Active Team Status: Active Member Role Status Dates Dr. Afua Velez , DO Primary Care Provider Active Dr. Alethea Jackson , DO Emergency Provider Active Dr. Mechelle Marquez MD Admit Provider, Referring Provider, Other Provider Active Dr. Saleem Rodriguez MD Attending Provider, Other Prov ider Active Dr. Fabio Tovar MD Other Provider Active Team Status: Active Member Role Status Dates Dr. Afua Velez , DO Primary Care Provider Active Dr. Teresa Roberts , DO Emergency Provider Active Dr. Stevan Max MD Admit Provider, Other Pro vider Active Dr. Darnell Booth MD Attending Provider, Other Provid er Active Team Status: Active Member Role Status Dates Dr. Afua Velez , DO Primary Care Provider Active Dr. Teresa Roberts , DO Emergency Provider Active Dr. Stevan Max MD Admit Provi philip, Attending Provider, Other Provider Active Dr. Darnell Booth MD Other Provider Active Team Status: Inactive Member Role Status Dates Dr. Afua Velez , DO Primary Care Provider Active Dr. Teresa Roberts , DO Emergency Provider Active Dr. Stevan Max MD Admit Provider, Attending Provider Active Dr. Darnell Booth MD Other Provider Active Team Status: Active Member Role Status Dates Dr. Afua Velez , DO Primary Care Provider Active Mary ALEXANDER PA Attending Provider, Referr ing Provider Active Team Status: Active Member Role Status Dates Dr. Afua Velez DO Primary Care Provider Active Sebastian Diallo DANCE THERAPIST, DANCE THERAPIST-C Attending Provider Active Team Status: Active Member Role Status Dates Dr. Afua Velez , DO Primary Care Provider Active Dr. Thanh Prajapati MD Attending Provider Active Mary ALEXANDER PA Referring Provider Active Network Technology Instructor Relationship Specialty Start Date End Date Afua Velez DO [address] [place] [address] PCP - General Family Medicine 07/11/21 Hannah Kowalski MD [address] [place] [address] Primary Staff Physician Cardiology 08/13/18 Network Technology Instructor Relationship Specialty Start Date End Date Afua Velez DO [address] [place] [id number] PCP - General Family Medicine 07/11/21 [place] [address] [place], [place] [id number] Primary Staff Physician Cardiology 08/13/18 Network Technology Instructor Relationship Specialty Start Date End Date Afua Velez DO [address] [place], [place] [id number] PCP - General Family Medicine 07/11/21 [place] [address] [place] [address] Primary Staff Physician Cardiology 08/13/18 Team Status: Active Member Role Status Dates Dr. Afua Velez DO Primary Care Provider Active Team Status: Inactive Member Role Status Dates Dr. Afua Velez DO Primary Care Provider Active Start: May 29, 2024 End: May 29, 2024 Dr. Tereso Cutler DO Attending Provider Active Start: May 29, 2024 End: May 29, 2024 Dr. Tereso Cutler DO Emergency Provider Active Start: May 29, 2024 End: May 29, 2024 Team Status: Inactive Member Role Status Dates Dr. Afua Velez DO Primary Care Provider Active Start: July 25, 2024 End: July 25, 2024 Dr. Afua Velez DO Attending Provider Active Start: July 25, 2024 End: July 25, 2024 Dr. Afua Velez DO Referring Provider Active Start: July 25, 2024 End: July 25, 2024 Network Technology Instructor Relationship Specialty Start Date End Date Afua Velez DO [address] [place] [address] PCP - General Family Medicine 07/11/21 Hannah Kowalski MD [facility] [place] [address] Primary Staff Physician Cardiology 08/13/18 Team Status: Active Member Role/Relationship Status Dates Dr. Afua Velez DO Primary Care Provider Active Team Status: Inactive Member Role/Relationship Status Dates Dr. Afua Velez DO Primary Care Provider Active Start: January 06, 2025 End: January 06, 2025 Dr. Afua Velez DO Attending Provider Active Start: January 06, 2025 End: January 06, 2025 Reason for Visit (unrecogniz ed section and content) Reason Comments Eye Trauma Right Eye Reason Comments Iritis Follow Up Reason Comments Schedule Surgery Reason Comments Medication Problem Reason Comments Consult EGD, stomach issues, 2021 last colonoscopy and EGD, constipation Reason Comments 09/03/2023 COLON/EGD DIAG PAZ WAITLIST Cardiac Clearance Reason Comments Yearly Exam FOR RECORDS PERTAINING TO PATIENTS WHO ARE [...] BE BASED ON THE PRIMARY CLINICAL RECORDS. [employer] provides no warranty or guarantee of the accuracy or completeness of information in this document.
== END | disposition home or self-care (01) ==
LOC: MRI 15:40
PROVIDERS: PCP Family Medicine; Referring Provider Anesthesiology; Visit Provider Anesthesiology
DX: M54.14 Radiculopathy, thoracic region (principal)
CPT/HCPCS: 72146